=== PATIENT | male | born 1965 | race Caucasian/White ===

== ENCOUNTER 2023-06-09 23:12 | Emergency (ER) | payer OTHER, SELFPAY ==
--- NOTE | ~2023-06-09 | CT_ITS ---
EXAMINATION: CT HEAD WITHOUT CONTRAST CLINICAL INFORMATION: Fall COMPARISON: None. TECHNIQUE: Contiguous axial imaging was performed from the skull base to vertex without intravenous contrast. This CT examination was performed using dose optimization techniques as appropriate, variously including the following: * Automated exposure control * Adjustment of mA and/or kV according to patient size (this includes techniques or standardized protocols for targeted exams where dose is matched to indication/reason for exam; i.e. extremities or head) Use of iterative reconstruction technique DLP: 648 mGy-cm. FINDINGS: There is no evidence of acute intracranial hemorrhage or territorial infarction. No abnormal mass effect or midline shift is seen. Munoz to white matter differentiation is well preserved. No extra-axial fluid collections are identified. No hydrocephalus. No significant volume loss. There is no abnormal attenuation within the brain parenchyma. The osseous structures and soft tissues are normal. Completely opacified left maxillary sinus. Mild mucoperiosteal thickening throughout the remaining paranasal sinuses. The mastoid air cells are clear. CT/CT head/brain wo IV con IMPRESSION: No acute intracranial pathology. Paranasal sinus opacification.
[2023-06-09 23:17] VITALS: BP 146/94; PULSE 80; O2SAT 94
--- NOTE | 2023-06-09 23:27 | ECG_ITS ---
Test Reason : SUBSTANCE ABUSE Blood Pressure : / mmHG Vent. Rate : 076 BPM Atrial Rate : 076 BPM P-R Int : 160 ms QRS Dur : 094 ms QT Int : 384 ms P-R-T Axes : 059 -01 029 degrees QTc Int : 432 ms Normal sinus rhythm Normal ECG When compared with ECG of 20-DEC-2017 00:37, No significant change was found Referred By: Magno Chavez Electronically Signed By:KENNETH REESE
--- NOTE | 2023-06-09 23:27 | ED.OVERDOSE ---
HPI - Overdose General Chief Complaint: Overdose Stated Complaint: snorted unk. drank 30 bud lite per ems Time Seen by Provider: 06/09/23 23:24 Source: patient Mode of arrival: EMS Limitations: no limitations History of Present Illness HPI Narrative: Patient alcohoic drinking heavy today had 30 beers and snorted cocaine fell down prior to arrival woke up about a sternal rub was given 4 mg of nasal Narcan patient denies use of heroin no chest pain Related Data Allergies Allergy/AdvReac Type Severity Reaction Status Date / Time Penicillins [PENICILLINS] Allergy Unknown UNKNOWN Unverified 07/07/20 17:16 Review of Systems Review of Systems: Yes all other systems are reviewed and are negative Physical Exam Vital Signs: Vital Signs: Last Vital Signs Temp 98.2 F 06/09/23 23:31 Pulse 68 06/10/23 01:38 Resp 17 06/10/23 01:38 BP 120/68 06/10/23 01:38 Pulse Ox 95 06/10/23 01:38 O2 Del Method Room Air 06/10/23 01:38 BMI result Body Mass Index 23.5 Appearance: Alert. Oriented X3. No acute distress. ETOH+ Eyes: PERRLA, No Nystagmus ENT: Pharynx normal. Oral Mucosa moist Neck: Normal inspection. Neck supple. No midline tenderness CVS: Normal heart rate and rhythm. Pulses normal. Respiratory: No respiratory distress. Equal air entry bilateral, no wheezing/rales/rhonchi Abdomen: Soft and nontender. Bowel sounds are present, no mass palpable, no CVA tenderness Skin: Skin warm and dry. Normal skin color. Normal skin turgor. Extremities: No lower extremity edema. No calf tenderness Neuro: Oriented X 3. No motor deficit. No sensory deficit.No cerebellar signs , cranial nerves II-XII intact Medical Decision Making Medical Decision Making [facility] Narrative: Patient ETOH intoxication status post fall with history of cocaine use , CT scan of the negative will discharge patient home once sober Differential Diagnosis Differential Diagnoses: The differential diagnosis associated with the presentation includes Subdural hematoma/alcohol intoxication/polysubstance abuse Lab Data [facility] Lab Attestation statement: I reviewed the patient's lab results. 06/09/23 23:51 06/09/23 23:51 Labs: Lab Results 08/20/23 08/20/23 08/20/23 Range/Units 23:51 23:51 23:51 WBC 9.3 (4.8-10.8) X10*3/uL RBC 5.21 (4.60-5.80) X10*6/uL Hgb 14.9 (14.0-18.0) g/dl Hct 44.7 (42.0-52.0) % MCV 85.8 (80.0-98.0) fL MCH 28.6 (27.0-33.0) pg MCHC 33.3 (31.0-36.0) g/dl RDW 13.2 (11.0-16.0) % Plt Count 323 (160-400) X10*3/uL MPV 9.9 (9.4-12.4) fL Immature Gran % (Auto) 0.2 (0.0-0.4) % Neut % (Auto) 63.9 (45-73) % Lymph % (Auto) 28.6 (20-40) % [place] % (Auto) 6.0 (2-11) % Eos % (Auto) 0.5 (0-4) % Baso % (Auto) 0.8 (0-2) % Lymph # (Auto) 2.7 (1.2-4.9) X10*3/uL [place] # (Auto) 0.6 (0.1-1.2) X10*3/uL Eos # (Auto) 0.1 (0.0-0.4) X10*3/uL Baso # (Auto) 0.1 (0.0-0.2) X10*3/uL Abs Immat Gran (auto) 0.02 (0.00-0.03) X10*3/uL Absolute Neuts (auto) 5.9 (2.0-8.3) x10*3/uL Absolute Nucleated RBC 0.000 (0.0-0.012) X10*3/uL Nucleated RBC % (auto) 0.0 (0.0-0.2) /100WBC PT 12.3 (11.1-13.3) SEC INR 1.0 (0.9-1.1) Sodium 144 (135-145) mmol/L Potassium 3.8 (3.3-5.1) mmol/L Chloride 106 (96-108) mmol/L Carbon Dioxide 25 (22-29) mmol/L Anion Gap 17 (12-20) BUN 12 (9-16) mg/dL Creatinine 1.00 (0.5-1.4) mg/dL Estim Creat Clear Calc 78.8 Estimated GFR > 60 Random Glucose 82 (60-115) mg/dL Calcium 9.9 (8.4-10.2) mg/dL Total Bilirubin 1.5 H (0.0-1.0) mg/dL AST 24 (5-37) U/L ALT 15 (0-40) U/L Alkaline Phosphatase 61 (39-117) U/L Total Protein 8.0 (6.5-8.0) g/dL Albumin 4.6 (3.5-5.0) g/dL Urine Opiates Screen (Not Detect) Urine Fentanyl Screen (Not Detect) Ur Barbiturates Screen (Not Detect) Ur Phencyclidine Scrn (Not Detect) Ur Amphetamines Screen (Not Detect) U Benzodiazepines Scrn (Not Detect) Urine Cocaine Screen (Not Detect) U Marijuana (THC) Screen (Not Detect) Ethyl Alcohol mg/dL 06/09/23 06/09/23 Range/Units 23:51 23:51 WBC (4.8-10.8) X10*3/uL RBC (4.60-5.80) X10*6/uL Hgb (14.0-18.0) g/dl Hct (42.0-52.0) % MCV (80.0-98.0) fL MCH (27.0-33.0) pg MCHC (31.0-36.0) g/dl RDW (11.0-16.0) % Plt Count (160-400) X10*3/uL MPV (9.4-12.4) fL Immature Gran % (Auto) (0.0-0.4) % Neut % (Auto) (45-73) % Lymph % (Auto) (20-40) % [place] % (Auto) (2-11) % Eos % (Auto) (0-4) % Baso % (Auto) (0-2) % Lymph # (Auto) (1.2-4.9) X10*3/uL [place] # (Auto) (0.1-1.2) X10*3/uL Eos # (Auto) (0.0-0.4) X10*3/uL Baso # (Auto) (0.0-0.2) X10*3/uL Abs Immat Gran (auto) (0.00-0.03) X10*3/uL Absolute Neuts (auto) (2.0-8.3) x10*3/uL Absolute Nucleated RBC (0.0-0.012) X10*3/uL Nucleated RBC % (auto) (0.0-0.2) /100WBC PT (11.1-13.3) SEC INR (0.9-1.1) Sodium (135-145) mmol/L Potassium (3.3-5.1) mmol/L Chloride (96-108) mmol/L Carbon Dioxide (22-29) mmol/L Anion Gap (12-20) BUN (9-16) mg/dL Creatinine (0.5-1.4) mg/dL Estim Creat Clear Calc Estimated GFR Random Glucose (60-115) mg/dL Calcium (8.4-10.2) mg/dL Total Bilirubin (0.0-1.0) mg/dL AST (5-37) U/L ALT (0-40) U/L Alkaline Phosphatase (39-117) U/L Total Protein (6.5-8.0) g/dL Albumin (3.5-5.0) g/dL Urine Opiates Screen Not Detected (Not Detect) Urine Fentanyl Screen Not Detected (Not Detect) Ur Barbiturates Screen Not Detected (Not Detect) Ur Phencyclidine Scrn Not Detected (Not Detect) Ur Amphetamines Screen Not Detected (Not Detect) U Benzodiazepines Scrn Not Detected (Not Detect) Urine Cocaine Screen POSITIVE H (Not Detect) U Marijuana (THC) Screen Not Detected (Not Detect) Ethyl Alcohol 261 mg/dL Independent Interpretation I performed an independent interpretation of an: EKG Interpretation: Normal sinus rhythm heart rate 76 beats per minute normal interval normal axis no acute ST-T no acute ischemia Discharge Plan Discharge Clinical Impression: Cocaine intoxication, Alcohol abuse Patient Disposition: Still a Patient Instructions: Cocaine Abuse (ED), Abuse of Alcohol (ED) Additional Instructions: Stop using drugs follow up with detox
[2023-06-09 23:31] VITALS: BP 138/87; PULSE 74; RESP 12; TEMP 36.8; O2SAT 98; BMI 23.5
[2023-06-09 23:57] LABS: MANUAL DIFF FLAG NO
[2023-06-09 23:58] LABS: Basophils Absolute Auto 0.1 X10*3/uL (0.0-0.2); Basophils Percent Auto 0.8 % (0-2); Eosinophils Absolute Auto 0.1 X10*3/uL (0.0-0.4); Eosinophils Percent Auto 0.5 % (0-4); Hematocrit 44.7 % (42.0-52.0); Hemoglobin 14.9 g/dl (14.0-18.0); Imm Gran Abs Auto 0.02 X10*3/uL (0.00-0.03); Imm Gran Pct Auto 0.2 % (0.0-0.4); Lymphocytes Absolute Auto 2.7 X10*3/uL (1.2-4.9); Lymphocytes Percent Auto 28.6 % (20-40); Mean Corpuscular HGB Conc 33.3 g/dl (31.0-36.0); Mean Corpuscular Hemoglobin 28.6 pg (27.0-33.0); Mean Corpuscular Volume 85.8 fL (80.0-98.0); Mean Platelet Volume 9.9 fL (9.4-12.4); Monocytes Absolute Auto 0.6 X10*3/uL (0.1-1.2); Neutrophils Absolute Auto 5.9 x10*3/uL (2.0-8.3); Neutrophils Percent Auto 63.9 % (45-73); Platelet Count 323 X10*3/uL (160-400); Red Blood Count 5.21 X10*6/uL (4.60-5.80); Red Cell Distribution Width 13.2 % (11.0-16.0); White Blood Count 9.3 X10*3/uL (4.8-10.8)
[2023-06-10 00:05] VITALS: O2SAT 86
--- NOTE | 2023-06-10 00:05 | PC.NURSE ---
this rn assumed care of pt from ems @ 2331.[id number] at bedside to secure belongings in [facility]. pt placed on cardiac tech, dr de dios at bedside, ekg obtained, blood work and urine obtained.
[2023-06-10 00:11] LABS: Prothrombin Time 12.3 SEC (11.1-13.3)
[2023-06-10 00:19] LABS: Amphetamine Screen Urine Not Detected (Not Detect); Barbiturates, Urine Not Detected (Not Detect); Benzodiazepines Screen Urine Not Detected (Not Detect); Cannabinoid Screen Urine Not Detected (Not Detect); Cocaine Screen Urine POSITIVE (Not Detect); Ethanol 261 mg/dL; Opiate Screen Urine Not Detected (Not Detect); Phencyclidine Screen Urine Not Detected (Not Detect)
[2023-06-10 00:22] LABS: Alanine Aminotransferase 15 U/L (0-40); Albumin Level 4.6 g/dL (3.5-5.0); Alkaline Phosphatase 61 U/L (39-117); Anion Gap 17 (12-20); Aspartate Amino Transferase 24 U/L (5-37); Bilirubin Total 1.5 mg/dL (0.0-1.0); Blood Urea Nitrogen 12 mg/dL (9-16); Calcium 9.9 mg/dL (8.4-10.2); Carbon Dioxide 25 mmol/L (22-29); Chloride 106 mmol/L (96-108); Creatinine Clr Calc Pharmacy 78.8; Estimated Glomerular Filt Rate > 60; Glucose Random 82 mg/dL (60-115); Potassium 3.8 mmol/L (3.3-5.1); Sodium 144 mmol/L (135-145)
[2023-06-10 00:37] LABS: Fentanyl, urine Not Detected (Not Detect)
[2023-06-10 01:38] VITALS: BP 120/68; PULSE 68; RESP 17; O2SAT 95
[2023-06-10 04:40] VITALS: BP 106/60; PULSE 73; RESP 20; O2SAT 97
[2023-06-10 06:19] VITALS: BP 95/56; PULSE 89; RESP 16; TEMP 36.6; O2SAT 97
[2023-06-10] MEDS: Magnesium Hydrox/Alum Hydrox 30 ML ORAL.SUSP PO (06:20)
--- OUTSIDE RECORDS SUMMARY | 2023-06-10 06:21 | XMS_ITS | Continuity of Care Document ---
Author Name Unknown Organization [facility] Address [address] [place] [address]- Care Team Providers Care Bottle And Glass Inspector Name Role Phone Raiza KRISHNA, [place] Primary Care Physician [phone] Encounter [facility] Date(s): 04/05/21 - 05/05/21 [facility] [address], [place] [address] Allergies, Adverse Reactions, Alerts Substance Reaction Severity Status penicillins Active Immunizations Given and Recorded Vaccine Date Status Refusal Reason SARS-CoV-2 (COVID-19) mRNA BNT-162b2 vac 02/27/21 Given SARS-CoV-2 (COVID-19) mRNA BNT-162b2 vac 02/06/21 Given tetanus-diphtheria toxoids (Td) 11/23/20 Given influenza virus vaccine, inactivated 07/27/20 Give n influenza virus vaccine, inactivated 12/21/19 Give n influenza virus vaccine, inactivated 07/15/19 Give n influenza virus vaccine, inactivated 1 10/12/10 Gi jocy tetanus/diphtheria/pertussis, acel(Tdap) 2 10/12/10 Given 1Admin Note: VIS given 05/30/10, Algerian form 2Admin Note: VIS given, 08/2008, Algerian form Medications amLODIPine 2.5 mg oral tablet 2.5 mg, 1, tablet, By Mouth, Daily, ; STOP amlodipine 5 mg. use this dose instead., # 30 tablet, Refills 11, Tot. Refills 11, Maintenance, 11/22/20 16:52:00 EST, Route to Pharmacy Electronically, [facility]/pharmacy #[id number], label all scripts in SWAZI,... Start Date: 11/22/20 Stop Date: 11/17/21 Status: Ordered azelastine 0.05% ophthalmic solution 1 drops, Eyes, Both, 2 times a day, PRN for allergy symptoms, # 6 mL, 6 Refills, Maintenance, 01/13/21 14:54:00 EDT, [id number], Label in Algerian, 1 drops Eyes, Both 2 times a day,PRN:for allergy symptoms, 159, cm, 01/04/21 9:23:00 EDT, Height... Start Date: 01/13/21 Status: Ordered diclofenac 3% topical gel 1 application, Topically, 2 times a day, # 100 Gm, 0 Refills, Maintenance, 04/28/21 17:22:00 EDT, Gel, [id number], Partial fill upon patient request if the prescription is for a schedule II opioid drug., 1 application Topically 2 times a day,... Start Date: 04/28/21 Status: Ordered Flonase 50 mcg/inh nasal spray 1 sprays, Nares, Both, Daily, # 16 Gm, 1 Refills, Maintenance, 06/16/20 18:04:00 EDT, [place], [id number], 159, cm, 06/08/20 13:31:00 EDT, Height Start Date: 06/16/20 Status: Ordered multivitamin Multiple Vitamins oral capsule 1 capsule, By Mouth, Daily, # 90 capsule, 1 Refills, Maintenance, 02/06/21 14:59:00 EDT, Capsule, [id number], 1 capsule By Mouth Daily, 159, cm, 01/04/21 9:23:00 EDT, Height, 78, kg, 01/02/2116:06:00 EDT, Dry Weight Start Date: 02/06/21 Status: Ordered omeprazole 40 mg oral enteric coated capsule 1 capsule = 40 mg, By Mouth, 2 times a day, # 60 capsule, 2 Refills, Maintenance, 04/13/21 10:31:00EDT, EC Capsule, [id number], Partial fill upon patient request if the prescription is for aschedule II opioid drug., 159, cm, 01/04/21 9:23:00... Start Date: 04/13/21 Stop Date: 07/12/21 Status: Ordered prazosin 2 mg oral capsule via Psychaitry, Syl Riley, 0 Refills, Maintenance, 11/22/20 16:15:00 EST, Partial fill upon patient request if the prescription is for a schedule II opioid drug. Start Date: 11/22/20 Status: Ordered QUEtiapine 100 mg oral tablet 100 mg, 1, tablet, By Mouth, Daily in AM, via Psychaitry, Syl Riley, Refills 0, Maintenance, 11/22/20 16:15:00 EST, Partial fill upon patient request if the prescription is for a schedule II opioid drug. Start Date: 11/22/20 Status: Ordered QUEtiapine 300 mg oral tablet TAKE 1 TABLET BY MOUTH AT BEDTIME DIRECTED FOR PSYCHOSIS, SLEEP AND MOOD STABILIZATION Start Date: 12/16/20 Status: Ordered tiZANidine 2 mg oral capsule 1 capsule = 2 mg, By Mouth, 3 times a day, PRN as needed for muscle spasm, # 9 capsule, 0 Refills, Maintenance, 04/28/21 17:18:00 EDT, Capsule, [facility]/pharmacy #[id number], libyan labeling, 159, cm, 04/28/2115:46:00 EDT, Height, 78, kg, 01/01/21 16:06:00 EDT... Start Date: 04/28/21 Stop Date: 05/01/21 Status: Ordered Tums 500 mg oral tablet, chewable 500 mg, 1, tablet, Chew, 2 times a day, # 60 tablet, Refills 5, Tot. Refills 5, Maintenance, 12/16/20 14:32:00 EST, Route to Pharmacy Electronically, [facility]/pharmacy #[id number], 159, cm, 12/16/20 13:47:00 EST, Height, 74.1, kg, 10/20/20 16:18:00 EST, Dry Weight Start Date: 12/16/20 Status: Ordered Problem List Condition Effective Dates Status Health Status Inform ant Hematuria(Confirmed) 1 Active Chronic back pain(Confirmed) Active Dyslipidemia(Confirmed) Active h/o allergic rhinitis(Confirmed) Active Illiteracy(Confirmed) Active Dyspepsia(Confirmed) Active Disc displacement(Confirmed) Active Onychomycosis(Confirmed) Active BHN/[facility]ECARE/CC-Serena Purcell-[phone]/[facility], Active Care Coordination(Confirmed) Active Muscle spasm(Confirmed) Active Tubular adenoma of colon - d ue 2021(Confirmed) 2 11/2015 Active 1, gross 2-2014, had cystoscopy 2014 Social History Social History Type Response Smoking Status Never smoker entered on: 08/23/16 Sex
--- OUTSIDE RECORDS SUMMARY | 2023-06-10 06:21 | XMS_ITS | Continuity of Care Document ---
Author Name Unknown Organization [facility] Address [address] [place] [address]- Care Team Providers Care Decker Operator Name Role Phone Raiza KRISHNA, [place] Primary Care Physician Encounter [facility] Date(s): 04/02/22 - 05/02/22 [facility] [address], [place] [address] Attending Physician: Viky Garcia Admitting Physician: AdmtrViky Referring Physician: Admtr, Ar8 Allergies, Adverse Reactions, Alerts Substance Reaction Severity Status penicillins Superficial gravel r enid Itching Active Immunizations Given and Recorded Vaccine Date Status Refusal Reason SARS-CoV-2 (COVID-19) mRNA BNT-162b2 vac 09/13/21 Recorded SARS-CoV-2 (COVID-19) mRNA BNT-162b2 vac 02/27/21 Given SARS-CoV-2 (COVID-19) mRNA BNT-162b2 vac 02/06/21 Given influenza virus vaccine, inactivated 07/20/21 Inocente rded influenza virus vaccine, inactivated 07/27/20 Give n influenza virus vaccine, inactivated 12/21/19 Give n influenza virus vaccine, inactivated 07/15/19 Give n influenza virus vaccine, inactivated 08/17/18 Inocente rded influenza virus vaccine, inactivated 11/12/17 Inocente rded influenza virus vaccine, inactivated 1 10/12/10 Gi jocy tetanus-diphtheria toxoids (Td) 11/23/20 Given tetanus/diphtheria/pertussis, acel(Tdap) 2 10/12/10 Given 1Admin Note: VIS given 05/30/10, Croatian form 2Admin Note: VIS given, 08/2008, Croatian form Medications amLODIPine 2.5 mg oral tablet 2.5 mg, 1, tablet, By Mouth, Daily, ; STOP amlodipine 5 mg. use this dose instead., # 30 tablet, Refills 5, Tot. Refills 5, Maintenance, 11/17/21 16:52:00 EST, Route to Pharmacy Electronically,[facility]/pharmacy #[id number], label all scripts in ICELANDIC, 1... Start Date: 11/17/21 Stop Date: 05/16/22 Status: Ordered azelastine 0.05% ophthalmic solution 1 drops, Eyes, Both, 2 times a day, PRN for allergy symptoms, For eye allergies, # 6 mL, 6 Refills,Maintenance, 02/28/22 16:27:00 EDT, [facility]/pharmacy #[id number], Label in Croatian, 1 drops Eyes, Both 2 times a day,PRN:for allergy symptoms,Instr:For eye aller... Start Date: 02/28/22 Status: Ordered azelastine 137 mcg/inh (0.1%) nasal spray 0 Refills, Maintenance, 12/07/21 11:16:00 EST, via Dr Glover, office assistant receptionist Start Date: 12/07/21 Status: Ordered baclofen 10 mg oral tablet See Instructions, JUAN RAMON JOAN TABLETA POR VIA ORAL KARLA VECES AL MONICA, # 63 tablet, Refills 0, Instructions Replace Required Details, Route to Pharmacy Electronically, [facility]ORE [id number], 157.5, cm, 04/10/22 10:29:00 EDT, Height, 75, kg, 03/25/22 2:00:00 EDT... Start Date: 04/16/22 Status: Ordered buPROPion 150 mg/24 hours (XL) oral tablet, extended release via psychiatry, 0 Refills, Maintenance, 12/07/21 11:13:00 EST, Partial fill upon patient request ifthe prescription is for a schedule II opioid drug. Start Date: 12/07/21 Status: Ordered ciclopirox 8% topical solution 1 application, Topically, Daily, Apply topically to affected toenails daily until infection is cleared, # 6.6 mL, 1 Refills, Maintenance, 08/28/21 14:44:00 EST, Solution, [facility]/pharmacy #[id number], Partial fill upon patient request if the prescription is for... Start Date: 08/28/21 Status: Ordered Crutches See Instructions, # 1 kit, Maintenance, use for 2 weeks dx: leg injury, 03/27/22 10:10:00 EDT, Supply, 157.5, cm, 03/27/22 9:45:00 EDT, Height, 75, kg, 03/25/22 2:00:00 EDT, Dry Weight Start Date: 03/27/22 Status: Ordered [facility] Maintenance, 12/07/21 11:16:00 EST, via Dr Glover, office assistant receptionist, Supply Start Date: 12/07/21 Status: Ordered cyclobenzaprine 5 mg oral tablet 0 Refills, Maintenance, 09/28/21 13:55:00 EST, Partial fill upon patient request if the prescription is for a schedule II opioid drug. Start Date: 09/28/21 Status: Ordered diclofenac 3% topical gel 1 application, Topically, 2 times a day, # 100 Gm, 0 Refills, Maintenance, 04/28/21 17:22:00 EDT, Gel, [facility]/pharmacy #[id number], Partial fill upon patient request if the prescription is for a schedule II opioid drug., 1 application Topically 2 times a day,... Start Date: 04/28/21 Status: Ordered Flonase 50 mcg/inh nasal spray 1 sprays, Nares, Both, Daily, # 16 Gm, 1 Refills, Maintenance, 11/30/21 10:55:00 EST, [place], [facility]/pharmacy #[id number], 1 sprays Nares, Both Daily, 159, cm, 11/30/21 9:50:00 EST, Height, 78, kg, 01/01/21 16:06:00 EDT, Dry Weight Start Date: 11/30/21 Status: Ordered Knee Support See Instructions, # 1 each, Maintenance, Dx: Left knee strain Dispense: Hinged Knee Brace, 03/29/2212:06:00 EDT, Supply Start Date: 03/29/22 Status: Ordered loratadine 10 mg oral tablet 10 mg, 1, tablet, By Mouth, Daily, # 30 tablet, Refills 5, Tot. Refills 5, Maintenance, 12/18/21 10:54:00 EST, Route to Pharmacy Electronically, [facility]/pharmacy #[id number], Partial fill upon patient request if the prescription is for a schedule II opioid drug... Start Date: 12/18/21 Status: Ordered LUBRICNT EYE JESSICA 0.4-0.3% Maintenance, 12/07/21 11:16:00 EST, via Dr Glover, office assistant receptionist, Supply Start Date: 12/07/21 Status: Ordered minoxidil 2% topical solution 1 mL = 0.02 Gm, Topically, 2 times a day, # 60 mL, 2 Refills, Maintenance, 02/28/22 16:27:00 EDT, Solution, [facility]/pharmacy #[id number], Partial fill upon patient request if the prescription is for a scheduleII opioid drug., 1 mL Topically 2 times a day, 159,... Start Date: 02/28/22 Status: Ordered multivitamin Multiple Vitamins oral capsule 1 capsule, By Mouth, Daily, # 90 capsule, 1 Refills, Maintenance, 03/22/22 15:18:00 EDT, Capsule, [id number], 1 capsule By Mouth Daily, 159, cm, 03/22/22 10:39:00 EDT, Height, 78, kg, 01/01/21 16:06:00 EDT, Dry Weight Start Date: 03/22/22 Status: Ordered NuLYTELY with Flavor Packs oral powder for reconstitution 240 mL, By Mouth, Every 10 minutes, # 1 each, 0 Refills, Maintenance, 09/21/21 9:33:00 EST, REC Powder, [facility], Partial fill upon patient request if the prescription is for a schedule II opioid drug., 240 mL By Mouth Every 10 minut... Start Date: 09/21/21 Status: Ordered [place]-3 1000 mg oral capsule via psychiatry, 0 Refills, Maintenance, 12/07/21 11:13:00 EST, Partial fill upon patient request ifthe prescription is for a schedule II opioid drug. Start Date: 12/07/21 Status: Ordered omeprazole 40 mg oral enteric coated capsule 1 capsule = 40 mg, By Mouth, 2 times a day, # 60 capsule, 2 Refills, Maintenance, 04/13/21 10:31:00EDT, EC Capsule, [id number], Partial fill upon patient request if the prescription is for aschedule II opioid drug., 159, cm, 01/04/21 9:23:00... Start Date: 04/13/21 Stop Date: 07/12/21 Status: Ordered Lynette-Colace 50 mg-8.6 mg oral tablet 2 tablet, By Mouth, Daily at bedtime, PRN Constipation, For constipation, # 60 tablet, 0 Refills, Maintenance, 01/02/22 20:52:00 EDT, Tablet, [facility]/pharmacy #[id number], Partial fill upon patient request if the prescription is for a schedule II opioid drug. L... Start Date: 01/02/22 Status: Ordered Physical Therapy Physical Therapy, See Instructions, # 1 each, Refills 0, Tot. Refills 0, Maintenance, Physical therapy for R leg 2 times a week for 4 weeks ICD M25.561, 04/10/22 10:46:00 EDT, Supply Start Date: 04/10/22 Status: Ordered QUEtiapine 50 mg oral tablet via psychiatry, 0 Refills, Maintenance, 12/07/21 11:13:00 EST, Partial fill upon patient request ifthe prescription is for a schedule II opioid drug. Start Date: 12/07/21 Status: Ordered Simply Saline 0.9% spray 1 sprays, Nares, Both, Every 30 minutes, PRN for dry nasal passages, # 45 mL, 4 Refills, Maintenance, 02/28/22 16:09:00 EDT, [place], [facility]/pharmacy #[id number], Partial fill upon patient request if the prescription is for a schedule II opioid drug., 1 sprays N... Start Date: 02/28/22 Status: Ordered tamsulosin 0.4 mg oral capsule 0.4 mg, 1, capsule, By Mouth, Daily, at night (print label in new zealander), # 30 capsule, Refills 1, Tot. Refills 1, Maintenance, 09/28/21 14:03:00 EST, Route to Pharmacy Electronically, [facility], Partial fill upon patient request if the... Start Date: 09/28/21 Status: Ordered Tears Naturale Forte preserved ophthalmic solution 1 drops, Eyes, Both, 2 times a day, PRN for dry eyes, # 30 mL, 0 Refills, Maintenance, 08/28/21 14:52:00 EST, Solution, [facility]/pharmacy #[id number], Partial fill upon patient request if the prescription is for a schedule II opioid drug., 1 drops Eyes, Both 2 t... Start Date: 08/28/21 Status: Ordered tiZANidine 2 mg oral capsule 1 capsule = 2 mg, By Mouth, 3 times a day, PRN as needed for muscle spasm, # 9 capsule, 0 Refills, Maintenance, 04/28/21 17:18:00 EDT, Capsule, [facility]/pharmacy #[id number], new zealander labeling, 159, cm, 04/28/2115:46:00 EDT, Height, 78, kg, 01/01/21 16:06:00 EDT... Start Date: 04/28/21 Stop Date: 05/01/21 Status: Ordered Tums 500 mg oral tablet, chewable 500 mg, 1, tablet, Chew, 2 times a day, # 60 tablet, Refills 5, Tot. Refills 5, Maintenance, 12/16/20 14:32:00 EST, Route to Pharmacy Electronically, [facility]/pharmacy #[id number], 159, cm, 12/16/20 13:47:00 EST, Height, 74.1, kg, 10/20/20 16:18:00 EST, Dry Weight Start Date: 12/16/20 Status: Ordered Walker See Instructions, # 1 each, Maintenance, Use walker as needed for ambulation Dx R26.81, 03/29/22 13:14:00 EDT, Supply Start Date: 03/29/22 Status: Ordered Problem List Condition Effective Dates Status Health Status Inform ant Hematuria(Confirmed) 1 Active Chronic back pain(Confirmed) Active Dyslipidemia(Confirmed) Active Allergic rhinitis(Confirmed) Active Illiteracy(Confirmed) Active Dyspepsia(Confirmed) Active Disc displacement(Confirmed) Active Obese class I(Confirmed) Active Onychomycosis(Confirmed) Active *N/[facility]/CC-Patricia [phone]/[facility], Active Care Coordination(Confirmed) Active Nasal septum perforation, h/ o cocaine(Confirmed) Active Muscle spasm(Confirmed) Active Tubular adenoma of colon - d ue 2021(Confirmed) 2 11/2015 Active 1 gross 2-2014, had cystoscopy 2014 Social History Social History Type Response Smoking Status Never smoker entered on: 08/23/16 Sex
--- OUTSIDE RECORDS SUMMARY | 2023-06-10 06:21 | XMS_ITS | Continuity of Care Document ---
Author Name Unknown Organization [facility] ter Address [address] [place] [id number]- Care Team Providers Care Sociology Research Assistant Name Role Phone Raiza KRISHNA, [place] Primary Care Physician [phone] Encounter [facility] Date(s): 03/25/22 - 03/25/[address] [address]- Discharge Disposition: A-D/C Home Attending Physician: Sylvain KRISHNA, Alexi Gandara Admitting Physician: Sylvain KRISHNA, Alexi Gandara Referring Physician: Not on Staff, Referring MD Allergies, Adverse Reactions, Alerts Substance Reaction Severity [...] 10/12/10 Given 1Admin Note: VIS given 05/30/10, Guinean form 2Admin Note: VIS given, 08/2008, Guinean form Medications amLODIPine 2.5 mg oral tablet 2.5 mg, 1, tablet, By Mouth, Daily, 2-1; STOP amlodipine 5 mg. use this dose instead., # 30 tablet, Refills 5, Tot. Refills 5, Maintenance, 11/17/21 16:52:00 EST, Route to Pharmacy Electronically,[facility]/pharmacy #[id number], label all scripts in [place], 1... Start Date: 11/17/21 Stop Date: 05/16/22 Status: Ordered azelastine 0.05% ophthalmic solution 1 drops, Eyes, Both, 2 times a day, PRN for allergy symptoms, For eye allergies, # 6 mL, 6 Refills,Maintenance, 02/28/22 16:27:00 EDT, [facility]/pharmacy #[id number], Label in Guinean, 1 drops Eyes, Both 2 times a day,PRN:for allergy symptoms,Instr:For eye aller... Start Date: 02/28/22 Status: Ordered azelastine 137 mcg/inh (0.1%) nasal spray 0 Refills, Maintenance, 12/07/21 11:16:00 EST, via Dr Glover, e commerce manager Start Date: 12/07/21 Status: Ordered buPROPion 150 mg/24 hours (XL) [...] 1 Refills, Maintenance, 08/28/21 14:44:00 EST, Solution, [facility]/pharmacy #[id number], Partial fill upon patient request if the prescription is for... Start Date: 08/28/21 Status: Ordered [facility] LUBRICANT EYE DROPS Maintenance, 12/07/21 11:16:00 EST, via Dr Glover, e commerce manager, Supply Start Date: 12/07/21 Status: Ordered cyclobenzaprine [...] Gm, 1 Refills, Maintenance, 11/30/21 10:55:00 EST, [place], [id number], 1 sprays Nares, Both Daily, 159, cm, 11/30/21 9:50:00 EST, Height, 78, kg, 01/01/21 16:06:00 EDT, Dry Weight Start Date: 11/30/21 Status: Ordered loratadine 10 mg oral tablet 10 mg, 1, tablet, By Mouth, Daily, # 30 tablet, Refills 5, Tot. Refills 5, Maintenance, 12/18/21 10:54:00 EST, Route to Pharmacy Electronically, [facility]/pharmacy #[id number], Partial fill upon patient request if the prescription is for a schedule II opioid drug... Start Date: 12/18/21 Status: Ordered LUBRICNT EYE JESSICA 0.4-0.3% Maintenance, 12/07/21 11:16:00 EST, via Dr Glover, e commerce manager, Supply Start Date: 12/07/21 Status: Ordered minoxidil 2% topical solution 1 mL = 0.02 Gm, Topically, 2 times a day, # 60 mL, 2 Refills, Maintenance, 02/28/22 16:27:00 EDT, Solution, [facility]/pharmacy #[id number], Partial fill upon patient request [...] Refills, Maintenance, 09/21/21 9:33:00 EST, [facility]der[facility] fill upon patient request if the prescription is for a schedule II opioid drug., 240 mL By Mouth Every 10 minut... Start Date: 09/21/21 Status: Ordered [place]-3 1000 mg oral capsule via psychiatry, 0 Refills, Maintenance, 12/07/21 11:13:00 EST, Partial fill upon patient request ifthe prescription is for a schedule II opioid drug. Start Date: 12/07/21 Status: Ordered omeprazole 40 mg oral enteric coated capsule 1 capsule = 40 mg, By Mouth, 2 times a day, # 60 capsule, 2 Refills, Maintenance, 04/13/21 10:31:00EDT, EC Capsule, [facility]/pharmacy #[id number], Partial fill upon patient request if the prescription is for aschedule II opioid drug., 159, cm, 01/04/21 9:23:00... Start Date: 04/13/21 Stop Date: 07/12/21 Status: Ordered Lynette-Colace 50 mg-8.6 mg oral tablet 2 tablet, By Mouth, Daily at bedtime, PRN Constipation, For constipation, # 60 tablet, 0 Refills, Maintenance, 01/02/22 20:52:00 EDT, Tablet, [facility]/pharmacy #[id number], Partial fill upon patient request if the prescription is for a schedule II opioid drug. L... Start Date: 01/02/22 Status: Ordered QUEtiapine 50 mg oral tablet via psychiatry, 0 Refills, Maintenance, 12/07/21 11:13:00 EST, Partial fill upon patient request ifthe prescription is for a schedule II opioid drug. Start Date: 12/07/21 Status: Ordered Simply Saline 0.9% spray 1 sprays, Nares, Both, Every 30 minutes, PRN for dry nasal passages, # 45 mL, 4 Refills, Maintenance, 02/28/22 16:09:00 EDT, [place], [facility]/pharmacy #[id number], Partial fill upon patient request if the prescription is for a schedule II opioid drug., 1 sprays N... Start Date: 02/28/22 Status: Ordered tamsulosin 0.4 mg oral capsule 0.4 mg, 1, capsule, By Mouth, Daily, at night (print label in danish), # 30 capsule, Refills 1, Tot. Refills 1, Maintenance, 09/28/21 14:03:00 EST, Route to Pharmacy Electronically, [facility], Partial fill upon patient request if the... Start Date: 09/28/21 Status: Ordered Tears Naturale Forte preserved ophthalmic solution 1 drops, Eyes, Both, 2 times a day, PRN for dry eyes, # 30 mL, 0 Refills, Maintenance, 08/28/21 14:52:00 EST, Solution, [facility]/pharmacy #[id number], Partial fill upon patient request if the prescription is for a schedule II opioid drug., 1 drops Eyes, Both 2 t... Start Date: 08/28/21 Status: Ordered tiZANidine 2 mg oral capsule 1 capsule = 2 mg, By Mouth, 3 times a day, PRN as needed for muscle spasm, # 9 capsule, 0 Refills, Maintenance, 04/28/21 17:18:00 EDT, Capsule, [facility]/pharmacy #[id number], danish labeling, 159, cm, 04/28/2115:46:00 EDT, Height, 78, kg, 01/01/21 16:06:00 EDT... Start Date: 04/28/21 Stop Date: 05/01/21 Status: Ordered Tums 500 mg oral tablet, chewable 500 mg, 1, tablet, Chew, 2 times a day, # 60 tablet, Refills 5, Tot. Refills 5, Maintenance, 12/16/20 14:32:00 EST, Route to Pharmacy Electronically, [facility]/pharmacy #[id number], 159, cm, 12/16/20 13:47:00 EST, Height, 74.1, kg, 10/20/20 16:18:00 EST, Dry Weight Start Date: 12/16/20 Status: Ordered Walker See Instructions, # 1 film, Maintenance, Use walker as needed, 03/25/22 12:11:00 EDT, Supply Start Date: 03/25/22 Status: Ordered Problem List Condition Effective Dates Status Health Status Inform ant Hematuria(Confirmed) 1 Active Chronic back pain(Confirmed) Active Dyslipidemia(Confirmed) Active Allergic rhinitis(Confirmed) Active Illiteracy(Confirmed) Active Dyspepsia(Confirmed) Active Disc displacement(Confirmed) Active Obese class I(Confirmed) Active Onychomycosis(Confirmed) Active *N/[facility]/CC-Patricia [phone]/[facility], Active Care Coordination(Confirmed) Active Nasal septum perforation, h/ o cocaine(Confirmed) Active Muscle spasm(Confirmed) Active Tubular adenoma of colon - d ue 2021(Confirmed) 2 11/2015 Active 1, gross 2-2014, had cystoscopy 2014 removed 2015 Results Radiology Reports * Exam Date Time Procedure Performing Provider Status 03/25/22 9:06 AM XR Hip w/Pelvis 2-3 View Right SebastiánKaren gillbeth; Andrea (Verified) Notes: (XR Hip w/Pelvis 2-3 View Right) Reason For Exam: Pain RESULT: XR Hip w/Pelvis 2-3 View Right XR Hip w/Pelvis 2-3 View Right Hx of Present Illness: leg pain; Reason: Pain; Clinical Question(s): Fracture COMPARISON: 03/25/2022 CT abdomen pelvis. FINDINGS: There is no acute pelvic bone or hip fracture. No dislocation. Normal hips and sacroiliac joints. Normal soft tissues. Opacified urinary bladder, from IV contrast given during CT. IMPRESSION: No acute RIGHT hip fracture. WSN: [id number] Ordering Physician: Suzette Deras Dictated By: Serena Obrien MD Dictated Date/Time: 03/25/22 9:17 am Reviewed By: Serena Obrien MD Signed By: Serena Obrien MD Signed Date/Time: 03/25/22 9:17 am Transcribed By: JEN Transcribed Date/Time: 03/25/22 9:14 am * Exam Date Time Procedure Performing Provider Status 03/25/22 4:03 AM Knee 1 or 2 Views Right Fatou Vallecillo cox monett (Verified) Notes: (Knee 1 or 2 Views Right) Reason For Exam: with Pain;Trauma RESULT: Knee 1 or 2 Views Right Knee 1 or 2 Views Right, 2 views Hx of Present Illness: leg pain; Reason: Trauma; with Pain; Clinical Question(s): Fracture; SpecialInstructions: This is a protocol film and radiologist should call any findings to the Charge Nurse COMPARISON: None. FINDINGS: There is no evidence of acute or healing fracture, dislocation or bone lesion. No arthritic changes. No osteochondral defects or intra-articular loose bodies. Moderate suprapatellar knee joint effusion. IMPRESSION: Joint effusion. No acute fracture or dislocation. WSN: [id number] Ordering Physician: Michael Hirsch Dictated By: Kev Jose MD Dictated Date/Time: 03/25/22 8:56 am Reviewed By: Kev Jose MD Signed By: Kev Jose MD Signed Date/Time: 03/25/22 8:56 am Transcribed By: JEN Transcribed Date/Time: 03/25/22 8:55 am Vital Signs Most recent to oldest [Reference Range]: 1 2 Height 157.5 cm (03/25/22 2:00 AM) 158 cm (03/25/22 2:00 AM) Weight 75 kg (03/25/22 2:00 AM) Oxygen Saturation [94-100 %] 100 % (03/25/22 6:15 AM) 100 % (03/25/22 2:00 AM) Pulse Rate [55-90 bpm] 66 bpm (03/25/22 6:15 AM) 73 bpm (03/25/22 2:00 AM) Blood Pressure [90-138/55-84 mm Hg] 129/ 76mm Hg (03/25/22 6:15 AM) 179/94mm Hg *H* (03/25/22 2:00 AM) Respiratory Rate [16-30 br/min] 18 br/mi n (03/25/22 2:00 AM) Temperature [96.8-100.4 DegF] 98.1 DegF (03/25/22 6:15 AM) 98.1 DegF (03/25/22 2:00 AM) Mode of Delivery (Oxygen) Room air (03/25/22 2:00 AM) Blood pressure sites Arm, right (03/25/22 6:15 AM) Arm, right (03/25/22 2:00 AM) Temperature Route Oral (03/25/22 6:15 AM) Oral (03/25/22 2:00 AM) Dry Weight 75 kg (03/25/22 2:00 AM) Social History Social History Type Response Smoking Status Never smoker entered on: 08/23/16 Sex
--- OUTSIDE RECORDS SUMMARY | 2023-06-10 06:21 | XMS_ITS | Continuity of Care Document ---
Author Name Unknown Organization [facility] Address [address] [place] [address]- Care Team Providers Care Svp [employer] Name Role Phone Trenton Eastman MD Primary Care Physician [phone] Encounter [facility] Date(s): 07/18/22 - 08/17/22 [facility] [address] [place] [id number] Allergies, Adverse Reactions, Alerts Substance Reaction Severity Status penicillins Superficial gravel r enid Itching Active Immunizations Given and Recorded Vaccine Date Status Refusal Reason SARS-CoV-2 mRNA ([id number]) vax 06/13/22 Recorded SARS-CoV-2 (COVID-19) mRNA BNT-162b2 vac 09/13/21 Recorded [...] 10/12/10 Given 1Admin Note: VIS given 05/30/10, [place] Islander form 2Admin Note: VIS given, 08/2008, [place]er form Medications amLODIPine 2.5 mg oral tablet 1 tablet, By Mouth, Daily, USE THIS DOSE INSTEAD., # 90 tablet, 5 Refills, [id number], 157.5, cm, 04/10/22 10:29:00 EDT, Height, 75, kg, 03/25/22 2:00:00 EDT, Dry Weight Start Date: 05/04/22 Status: Ordered azelastine 0.05% ophthalmic solution 1 drops, Eyes, Both, 2 times a day, PRN for allergy symptoms, For eye allergies, # 6 mL, 6 Refills,Maintenance, 02/28/22 16:27:00 EDT, [id number], Label in [place] Islander, 1 drops Eyes, Both 2 times a day,PRN:for allergy symptoms,Instr:For eye aller... Start Date: 02/28/22 Status: Ordered azelastine 137 mcg/inh (0.1%) nasal spray 0 Refills, Maintenance, 12/07/21 11:16:00 EST, via Dr Glover, flash welder Start Date: 12/07/21 Status: Ordered baclofen 10 mg oral tablet See Instructions, JUAN RAMON JOAN TABLETA POR VIA ORAL KARLA BERRY AL MONICA, # 63 tablet, Refills 0, Instructions Replace Required Details, Route to Pharmacy Electronically, [id number], 157.5, cm, 04/10/22 10:29:00 EDT, Height, 75, [...] 1 Refills, Maintenance, 08/28/21 14:44:00 EST, Solution, [facility]/pharmacy #[id number], Partial fill upon patient request if the prescription is for... Start Date: 08/28/21 Status: Ordered ciclopirox topical 0.77% suspension 1 application, Topically, 2 times a day, Print instructions in andorran, # 60 mL, 1 Refills, Maintenance, 07/11/22 11:00:00 EDT, Suspension, [facility]/pharmacy #[id number], Partial fill upon patient request if the prescription is for a schedule II opioid drug., 1... Start Date: 07/11/22 Status: Ordered clotrimazole 1% topical cream 1 application, Topically, 2 times a day, Print instructions in andorran Apply to groin area, face, and also in between digits on both feet, # 100 Gm, 0 Refills, Maintenance, 07/11/22 11:00:00 EDT, Cream, [facility]/pharmacy #[id number], Partial fill upon patient r... Start Date: 07/11/22 Status: Ordered [facility] LUBRICANT EYE DROPS Maintenance, 12/07/21 11:16:00 EST, via Dr Glover, flash welder, Supply Start Date: 12/07/21 Status: Ordered cyclobenzaprine 5 mg oral tablet 0 Refills, Maintenance, 09/28/21 13:55:00 EST, Partial fill upon patient request if the prescription is for a schedule II opioid drug. Start Date: 09/28/21 Status: Ordered diclofenac 3% topical gel 1 application, Topically, 2 times a day, # 100 Gm, 0 Refills, Maintenance, 04/28/21 17:22:00 EDT, Gel, [facility]/pharmacy #[id number], Partial fill upon patient request if the prescription is for a schedule II opioid drug., 1 application Topically 2 times a day,... Start Date: 04/28/21 Status: Ordered famotidine 40 mg oral tablet 1 tablet = 40 mg, By Mouth, 2 times a day, take 2x/day for 2 weeks then decrease to daily, # 60 tablet, 2 Refills, Maintenance, 06/24/22 12:04:00 EDT, Tablet, [facility]/pharmacy #[id number], Partial fill upon patient request if the prescription is for a schedule... Start Date: 06/24/22 Stop Date: 09/22/22 Status: Ordered Flonase 50 mcg/inh nasal spray 1 sprays, Nares, Both, Daily, # 16 Gm, 1 Refills, Maintenance, 11/30/21 10:55:00 EST, [place], [facility]/pharmacy #[id number], 1 sprays Nares, Both Daily, 159, cm, 11/30/21 9:50:00 EST, Height, 78, kg, 01/01/21 16:06:00 EDT, Dry Weight Start Date: 11/30/21 Status: Ordered loratadine 10 mg oral tablet 10 mg, 1, tablet, By Mouth, Daily, # 30 tablet, Refills 5, Tot. Refills 5, Maintenance, 12/18/21 10:54:00 EST, [id number] Partial fill upon patient request if the prescription is for a schedule II opioid drug... Start Date: 12/18/21 Status: Ordered LUBRICNT EYE JESSICA 0.4-0.3% Maintenance, 12/07/21 11:16:00 EST, via Dr Glover, flash welder, Supply Start Date: 12/07/21 Status: Ordered minoxidil 2% topical solution 1 mL = 0.02 Gm, Topically, 2 times a day, # 60 mL, 2 Refills, Maintenance, 02/28/22 16:27:00 EDT, [id number] Partial fill upon patient request if the prescription is for a scheduleII opioid drug., 1 mL Topically 2 times a day, 159,... Start Date: 02/28/22 Status: Ordered multivitamin Multiple Vitamins oral capsule 1 capsule, By Mouth, Daily, # 90 capsule, 1 Refills, Maintenance, 03/22/22 15:18:00 EDT, Capsule, [facility]/pharmacy #[id number], 1 capsule By Mouth Daily, 159, cm, 03/22/22 10:39:00 EDT, Height, 78, kg, 01/01/21 16:06:00 EDT, Dry Weight Start Date: 03/22/22 Status: Ordered NuLYTELY with Flavor Packs oral powder for reconstitution 240 mL, By Mouth, Every 10 minutes, # 1 each, 0 Refills, Maintenance, 09/21/21 9:33:00 EST, REC Powder, [facility], Partial fill upon patient request if the prescription is for a schedule II opioid drug., 240 mL By Mouth Every 10 minut... Start Date: 09/21/21 Status: Ordered NuLYTELY with Flavor Packs oral powder for reconstitution See Instructions, per GI office, # 4,000 mL, 0 Refills, Maintenance, 06/11/22 9:43:00 EDT, [id number], Partial fill upon patient request if the prescription is for a schedule II opioid drug.,per GI office, 157.5, cm, 04/10/22 10:29:00 EDT, He... Start Date: 06/11/22 Status: Ordered [place]-3 1000 mg oral capsule via psychiatry, 0 Refills, Maintenance, 12/07/21 11:13:00 EST, Partial fill upon patient request ifthe prescription is for a schedule II opioid drug. Start Date: 12/07/21 Status: Ordered omeprazole 40 mg oral enteric coated capsule 1 capsule = 40 mg, By Mouth, 2 times a day, # 60 capsule, 2 Refills, Maintenance, 06/11/22 8:55:00 EDT, EC Capsule, [facility]/pharmacy #[id number], Partial fill upon patient request if the prescription is for a schedule II opioid drug., 157.5, cm, 04/10/22 10:29:... Start Date: 06/11/22 Stop Date: 09/09/22 Status: Ordered Lynette-Colace 50 mg-8.6 mg oral tablet 2 tablet, By Mouth, Daily at bedtime, PRN Constipation, For constipation, # 60 tablet, 0 Refills, Maintenance, 01/02/22 20:52:00 EDT, Tablet, [facility]/pharmacy #[id number], Partial fill upon patient request [...] mL, 4 Refills, Maintenance, 02/28/22 16:09:00 EDT, [place], [id number], Partial fill upon patient request if the prescription is for a schedule II opioid drug., 1 sprays N... Start Date: 02/28/22 Status: Ordered tamsulosin 0.4 mg oral capsule 0.4 mg, 1, capsule, By Mouth, Daily, at night (print label in andorran), # 30 capsule, Refills 1, Tot. Refills 1, Maintenance, 09/28/21 14:03:00 EST, Route to Pharmacy Electronically, [facility], Partial fill upon patient request if the... Start Date: 09/28/21 Status: Ordered Tears Naturale Forte preserved ophthalmic solution 1 drops, Eyes, Both, 2 times a day, PRN for dry eyes, # 30 mL, 0 Refills, Maintenance, 08/28/21 14:52:00 EST, Solution, [facility]/pharmacy #[id number], Partial fill upon patient request if the prescription is for a schedule II opioid drug., 1 drops Eyes, Both 2 t... Start Date: 08/28/21 Status: Ordered tiZANidine 2 mg oral capsule 1 capsule = 2 mg, By Mouth, 3 times a day, PRN as needed for muscle spasm, # 9 capsule, 0 Refills, Maintenance, 04/28/21 17:18:00 EDT, Capsule, [facility]/pharmacy #[id number], andorran labeling, 159, cm, 04/28/2115:46:00 EDT, Height, 78, kg, 01/01/21 16:06:00 EDT... Start Date: 04/28/21 Stop Date: 05/01/21 Status: Ordered Tums 500 mg oral tablet, chewable 500 mg, 1, tablet, Chew, 2 times a day, # 60 tablet, Refills 5, Tot. Refills 5, Maintenance, 12/16/20 14:32:00 EST, Route to Pharmacy Electronically, [facility]/pharmacy #[id number], 159, cm, 12/16/20 13:47:00 EST, Height, 74.1, kg, 10/20/20 16:18:00 EST, Dry Weight Start Date: 12/16/20 Status: Ordered Tylenol Extra Strength 500 mg oral tablet 2 tablet = 1,000 mg, By Mouth, Every 6 hours, 0 Refills, Maintenance, 06/12/22 13:22:00 EDT, Partial fill upon patient request if the prescription is for a schedule II opioid drug. Start Date: 06/12/22 Status: Ordered Problem List Condition Confirmation Course Effective Dates Status H ealth Status Informant Hematuria 1 Confirmed Active Chronic back pain Confirmed Active Dyslipidemia Confirmed Active Allergic rhinitis Confirmed Active Illiteracy Confirmed Active Dyspepsia Confirmed Active Disc displacement Confirmed Active Onychomycosis Confirmed Active *[facility]/CC-Mary gayle [phone]/[facility], Active Care Coordination Confirmed Active Nasal septum perforation, h/o cocaine Confirmed Active Muscle spasm Confirmed Active Tubular adenoma of colon - due 2021 2 Confirmed 11/2015 Active 1, gross 2-2014, had cystoscopy 2014 removed 2015 Social History Social History Type Response Smoking Status Never smoker entered on: 08/23/16 Sex Patient Care team information Personnel Name: Trenton Eastman MD Address: Address: [address] [place] [address] [place], [place] [address]
--- OUTSIDE RECORDS SUMMARY | 2023-06-10 06:21 | XMS_ITS | Continuity of Care Document ---
Author Name Unknown Organization [facility] Address [address] [place] [address]- Care Team Providers Care Assembly Worker Name Role Phone Trenton Eastman MD Primary Care Phys[place] [facility] [place] [facility] [address] [place] [id number] Allergies, Adverse Reactions, Alerts Substance [...] 10/12/10 Given 1Admin Note: VIS given 05/30/10, [place]ese form 2Admin Note: VIS given, 08/2008, Marshallese form Medications amLODIPine 2.5 mg oral tablet 2.5 mg, 1, tablet, By Mouth, Daily, ; STOP amlodipine 5 mg. use this dose instead., # 30 tablet, Refills 5, Tot. Refills 5, Maintenance, 11/17/21 16:52:00 EST, Route to Pharmacy Electronically,[id number], label all scripts in ESTONIAN, 1... Start Date: 11/17/21 Stop Date: 05/16/22 Status: Ordered azelastine 0.05% ophthalmic solution 1 drops, Eyes, Both, 2 times a day, PRN for allergy symptoms, # 6 mL, 6 Refills, Maintenance, 01/13/21 14:54:00 EDT, [facility]/pharmacy #[id number], Label in Marshallese, 1 drops Eyes, Both 2 times a day,PRN:for allergy symptoms, 159, cm, 01/04/21 9:23:00 EDT, Height... Start Date: 01/13/21 Status: Ordered buPROPion 150 mg/24 hours (XL) oral tablet, extended release 1 tablet = 150 mg, By Mouth, Every 24 hours, # 30 tablet, 0 Refills, Maintenance, 09/28/21 13:54:00EST, ER Tablet, Partial fill upon patient request if the prescription is for a schedule II opioid drug. Start Date: 09/28/21 Status: Ordered ciclopirox 8% topical solution 1 application, Topically, Daily, Apply topically to affected toenails daily until infection is cleared, # 6.6 mL, 1 Refills, Maintenance, 08/28/21 14:44:00 EST, Solution, [facility]/pharmacy #[id number], Partial fill upon patient request if the prescription is for... Start Date: 08/28/21 Status: Ordered cyclobenzaprine 5 mg oral tablet 0 Refills, Maintenance, 09/28/21 13:55:00 EST, Partial fill upon patient request if the prescription is for a schedule II opioid drug. Start Date: 09/28/21 Status: Ordered diclofenac 3% topical gel 1 application, Topically, 2 times a day, # 100 Gm, 0 Refills, Maintenance, 04/28/21 17:22:00 EDT, Gel, [facility]/pharmacy #[id number], Partial fill upon patient request if the prescription is for a schedule II opioid drug., 1 application Topically 2 times a day,... Start Date: 04/28/21 Status: Ordered Flonase 50 mcg/inh nasal spray 1 sprays, Nares, Both, Daily, # 16 Gm, 1 Refills, Maintenance, 11/30/21 10:55:00 EST, [place], [facility]/pharmacy #[id number], 1 sprays Nares, Both Daily, 159, cm, 11/30/21 9:50:00 EST, Height, 78, kg, 01/01/21 16:06:00 EDT, Dry Weight Start Date: 11/30/21 Status: Ordered multivitamin Multiple Vitamins oral capsule 1 capsule, By Mouth, Daily, # 90 capsule, 0 Refills, Maintenance, 10/18/21 22:09:00 EST, Capsule, [facility]/pharmacy #[id number], 1 capsule By Mouth Daily, 159, cm, 10/05/21 13:26:00 EST, Height, 78, kg, 01/01/21 16:06:00 EDT, Dry Weight Start Date: 10/18/21 Status: Ordered NuLYTELY with Flavor Packs oral powder for reconstitution 240 mL, By Mouth, Every 10 minutes, # 1 each, 0 Refills, Maintenance, 09/21/21 9:33:00 EST, [facility] Pow[facility] Partial fill upon patient request if the prescription is for a schedule II opioid drug., 240 mL By Mouth Every 10 minut... Start Date: 09/21/21 Status: Ordered omeprazole 40 mg oral enteric coated capsule 1 capsule = 40 mg, By Mouth, 2 times a day, # 60 capsule, 2 Refills, Maintenance, 04/13/21 10:31:00EDT, EC Capsule, [facility]/pharmacy #[id number], Partial fill upon patient request if the prescription is for aschedule II opioid drug., 159, cm, 01/04/21 9:23:00... Start Date: 04/13/21 Stop Date: 07/12/21 Status: Ordered QUEtiapine 50 mg oral tablet 1 tablet = 50 mg, By Mouth, Daily, # 30 tablet, 0 Refills, Maintenance, 09/28/21 13:54:00 EST, Tablet, Partial fill upon patient request if the prescription is for a schedule II opioid drug. Start Date: 09/28/21 Status: Ordered tamsulosin 0.4 mg oral capsule 0.4 mg, 1, capsule, By Mouth, Daily, at night (print label in omani), # 30 capsule, Refills 1, Tot. Refills 1, Maintenance, 09/28/21 14:03:00 EST, [facility], Partial fill upon patient request if the... Start Date: 09/28/21 Status: Ordered Tears Naturale Forte preserved ophthalmic solution 1 drops, Eyes, Both, 2 times a day, PRN for dry eyes, # 30 mL, 0 Refills, Maintenance, 08/28/21 14:52:00 EST, Solution, [facility]/pharmacy #[id number], Partial fill upon patient request if the prescription is for a schedule II opioid drug., 1 drops Eyes, Both 2 t... Start Date: 08/28/21 Status: Ordered tiZANidine 2 mg oral capsule 1 capsule = 2 mg, By Mouth, 3 times a day, PRN as needed for muscle spasm, # 9 capsule, 0 Refills, Maintenance, 04/28/21 17:18:00 EDT, Capsule, [facility]/pharmacy #[id number], omani labeling, 159, cm, 04/28/2115:46:00 EDT, Height, 78, kg, 01/01/21 16:06:00 EDT... Start Date: 04/28/21 Stop Date: 05/01/21 Status: Ordered Tums 500 mg oral tablet, chewable 500 mg, 1, tablet, Chew, 2 times a day, # 60 tablet, Refills 5, Tot. Refills 5, Maintenance, 12/16/20 14:32:00 EST, Route to Pharmacy Electronically, [facility]/pharmacy #[id number], 159, cm, 12/16/20 13:47:00 EST, Height, 74.1, kg, 10/20/20 16:18:00 EST, Dry Weight Start Date: 12/16/20 Status: Ordered Problem List Condition Effective Dates Status Health Status Inform ant Hematuria(Confirmed) 1 Active Chronic back pain(Confirmed) Active Dyslipidemia(Confirmed) Active h/o allergic rhinitis(Confirmed) Active Illiteracy(Confirmed) Active Dyspepsia(Confirmed) Active Disc displacement(Confirmed) Active Onychomycosis(Confirmed) Active *[facility]-Patricia [phone]/[facility], Active Care Coordination(Confirmed) Active Muscle spasm(Confirmed) Active Tubular adenoma of colon - d ue 2021(Confirmed) 2 11/2015 Active 1, gross 2-2014, had cystoscopy 2014 Social History Social History Type Response Smoking Status Never smoker entered on: 08/23/16 Sex
--- OUTSIDE RECORDS SUMMARY | 2023-06-10 06:21 | XMS_ITS | Continuity of Care Document ---
Author Name Unknown Organization [facility] Address [address] [place] [address]- Care Team Providers Care Milk Receiver Name Role Phone Raiza KRISHNA, [place] Primary Care Physician [phone] Encounter [facility] Date(s): 10/31/22 - 11/30/22 [facility] [address] [place] [id number] Allergies, Adverse Reactions, Alerts Substance Reaction Severity Status penicillins Superficial gravel r enid Itching Active Immunizations Given and Recorded Vaccine Date Status Refusal Reason influenza virus vaccine, inactivated 08/19/22 Inocente rded influenza virus vaccine, inactivated 07/20/21 Inocente rded influenza virus vaccine, inactivated 07/27/20 Give n influenza virus vaccine, inactivated 12/21/19 Give n influenza virus vaccine, inactivated 07/15/19 Give n influenza virus vaccine, inactivated 08/17/18 Inocente rded influenza virus vaccine, inactivated 11/12/17 Inocente rded influenza virus vaccine, inactivated 1 10/12/10 Gi jocy SARS-CoV-2 mRNA ([id number]) vax 06/13/22 Recorded SARS-CoV-2 (COVID-19) mRNA BNT-162b2 vac 09/13/21 Recorded SARS-CoV-2 (COVID-19) mRNA BNT-162b2 vac 02/27/21 Given SARS-CoV-2 (COVID-19) mRNA BNT-162b2 vac 02/06/21 Given tetanus-diphtheria toxoids (Td) 11/23/20 Given tetanus/diphtheria/pertussis, acel(Tdap) 2 10/12/10 Given 1Admin Note: VIS given 05/30/10, [place] form 2Admin Note: VIS given, 08/2008, [place] form Medications amLODIPine 5 mg oral tablet 5 mg, 1, tablet, By Mouth, Daily, # 90 tablet, Refills 3, Tot. Refills 3, Maintenance, 11/01/22 9:44:00 EST, Route to Pharmacy Electronically, [facility]/pharmacy #[id number], Partial fill upon patient request ifthe prescription is for a schedule II opioid drug.,... Start Date: 11/01/22 Status: Ordered Artificial Tears preserved solution 1 drops, Eyes, Both, 2 times a day, PRN for dry eyes, # 30 mL, 0 Refills, Maintenance, 11/29/22 17:50:00 EST, Solution, [facility]/pharmacy #[id number], Partial fill upon patient request if the prescription is for a schedule II opioid drug., 1 drops Eyes, Both 2 t... Start Date: 11/29/22 Status: Ordered Ativan 0.5 mg oral tablet 1 tablet = 0.5 mg, By Mouth, Once, pakistani label, take 30 mins to 1 hr before flight, # 2 tablet, 0Refills, Soft Stop, 10/08/22 17:54:00 EST, Tablet, [facility]/pharmacy #[id number], Partial fill upon patient request if the prescription is for a schedule II opioi... Start Date: 10/08/22 Status: Ordered azelastine 137 mcg/inh (0.1%) nasal spray 0 Refills, Maintenance, 12/07/21 11:16:00 EST, via Dr Glover, video game technician Start Date: 12/07/21 Status: Ordered baclofen 10 mg oral tablet See Instructions, TOME JOAN TABLETA POR VIA ORAL KARLA VECES AL MONICA, # 63 tablet, Refills 0, Instructions Replace Required Details, Route to Pharmacy Electronically, [id number], 157.5, cm, 04/10/22 10:29:00 EDT, Height, 75, kg, 03/25/22 2:00:00 EDT... Start Date: 04/16/22 Status: Ordered buPROPion 150 mg/24 hours (XL) oral tablet, extended release via psychiatry, 0 Refills, Maintenance, 12/07/21 11:13:00 EST, Partial fill upon patient request ifthe prescription is for a schedule II opioid drug. Start Date: 12/07/21 Status: Ordered ciclopirox topical 0.77% suspension 1 application, Topically, 2 times a day, Print instructions in pakistani, # 60 mL, 1 Refills, Maintenance, 07/11/22 11:00:00 EDT, Suspension, [id number], Partial fill upon patient request if the prescription is for a schedule II opioid drug., 1... Start Date: 07/11/22 Status: Ordered [facility] LUBRICANT EYE DROPS Maintenance, 12/07/21 11:16:00 EST, via Dr Glover, video game technician, Supply Start Date: 12/07/21 Status: Ordered famotidine 40 mg oral tablet 1 tablet = 40 mg, By Mouth, 2 times a day, take 2x/day for 2 weeks then decrease to daily, # 60 tablet, 2 Refills, Maintenance, 06/24/22 12:04:00 EDT, Tablet, [id number], Partial fill upon patient request if the prescription is for a schedule... Start Date: 06/24/22 Stop Date: 09/22/22 Status: Ordered Flomax 0.4 mg oral capsule 0.4 mg, 1, capsule, By Mouth, Daily, # 30 capsule, Refills 5, Tot. Refills 5, Maintenance, 11/07/2310:08:00 EST, Route to Pharmacy Electronically, [id number], Partial fill upon patient request if the prescription is for a schedule II opioid d... Start Date: 11/07/22 Status: Ordered loratadine 10 mg oral tablet 10 mg, 1, tablet, By Mouth, Daily, # 30 tablet, Refills 5, Tot. Refills 5, Maintenance, 12/18/21 10:54:00 EST, Route to Pharmacy Electronically, [id number], Partial fill upon patient request if the prescription is for a schedule II opioid drug... Start Date: 12/18/21 Status: Ordered LUBRICNT EYE JESSICA 0.4-0.3% Maintenance, 12/07/21 11:16:00 EST, via Dr Glover, video game technician, Supply Start Date: 12/07/21 Status: Ordered minoxidil 2% topical solution 1 mL = 0.02 Gm, Topically, 2 times a day, # 60 mL, 2 Refills, Maintenance, 02/28/22 16:27:00 EDT, Solution, [id number], Partial fill upon patient request if the prescription is for a scheduleII opioid drug., 1 mL Topically 2 times a day, 159,... Start Date: 02/28/22 Status: Ordered multivitamin Multiple Vitamins oral capsule 1 capsule, By Mouth, Daily, # 90 capsule, 1 Refills, Maintenance, 09/12/22 9:06:00 EST, Capsule, [facility]/pharmacy #[id number], 1 capsule By Mouth Daily, 162.56, cm, 09/10/22 9:07:00 EST, Height, 76.5, kg, 06/12/22 13:23:00 EDT, Dry Weight Start Date: 09/12/22 Status: Ordered Mylanta Maximum Strength Blanco oral suspension 5 mL, By Mouth, 4 times a day, PRN for control of stomach acid, # 200 mL, 2 Refills, Maintenance, 09/06/22 10:23:00 EST, Suspension, [id number], Partial fill upon patient request if the prescription is for a schedule II opioid drug., 5 mL By M... Start Date: 09/06/22 Status: Ordered NuLYTELY with Flavor Packs oral powder for reconstitution See Instructions, per GI office, # 4,000 mL, 0 Refills, Maintenance, 06/11/22 9:43:00 EDT, [id number], Partial fill upon patient request if the prescription is for a schedule II opioid drug.,per GI office, 157.5, cm, 04/10/22 10:29:00 EDT, He... Start Date: 06/11/22 Status: Ordered Blackwell-3 1000 mg oral capsule via psychiatry, 0 Refills, Maintenance, 12/07/21 11:13:00 EST, Partial fill upon patient request ifthe prescription is for a schedule II opioid drug. Start Date: 12/07/21 Status: Ordered omeprazole 40 mg oral enteric coated capsule See Instructions, JUAN RAMON ROJASES AL MONICA, # 180 capsule, 1 Refills, Maintenance, 09/05/22 10:55:00 EST, [id number], 162.56, cm, 07/12/22 10:42:00 EDT, Height, 76.5, kg, 06/12/22 13:23:00 EDT, Dry Weight Start Date: 09/05/22 Status: Ordered Lynette-Colace 50 mg-8.6 mg oral tablet 2 tablet, By Mouth, Daily at bedtime, PRN Constipation, For constipation, # 60 tablet, 0 Refills, Maintenance, 01/02/22 20:52:00 EDT, Tablet, [facility]/pharmacy #[id number], Partial fill upon patient request if the prescription is for a schedule II opioid drug. L... Start Date: 01/02/22 Status: Ordered QUEtiapine 50 mg oral tablet via psychiatry, 0 Refills, Maintenance, 12/07/21 11:13:00 EST, Partial fill upon patient request ifthe prescription is for a schedule II opioid drug. Start Date: 12/07/21 Status: Ordered Saline Mist 0.65% nasal spray 2 sprays, Nares, Both, 4 times a day, # 60 mL, 0 Refills, Maintenance, 11/30/22 11:37:00 EST, [facility]/pharmacy #[id number], Partial fill upon patient request if the prescription is for a schedule II opioid drug., 2 sprays Nares, Both 4 times a day, 162.56, cm,... Start Date: 11/30/22 Status: Ordered Simply Saline 0.9% spray 1 sprays, Nares, Both, Every 30 minutes, PRN for dry nasal passages, # 45 mL, 4 Refills, Maintenance, 02/28/22 16:09:00 EDT, [place], [facility]/pharmacy #[id number], Partial fill upon patient request if the prescription is for a schedule II opioid drug., 1 sprays N... Start Date: 02/28/22 Status: Ordered Tears Naturale Forte preserved ophthalmic solution 1 drops, Eyes, Both, 2 times a day, PRN for dry eyes, # 30 mL, 0 Refills, Maintenance, 11/30/22 11:37:00 EST, Solution, [facility]/pharmacy #[id number], Partial fill upon patient request if the prescription is for a schedule II opioid drug., 1 drops Eyes, Both 2 t... Start Date: 11/30/22 Status: Ordered Tylenol Extra Strength 500 mg [...] Dyslipidemia Confirmed Active Allergic rhinitis Confirmed Active HTN (hypertension) Confirmed Active Illiteracy Confirmed Active Dyspepsia Confirmed Active Disc displacement Confirmed Active Onychomycosis Confirmed Active *[facility]/CC-Mary gayle [phone]/[facility], Active Care Coordination Confirmed Active Nasal septum perforation, h/o cocaine Confirmed Active Muscle spasm Confirmed Active Tubular adenoma of colon - due 2021 2 Confirmed 11/2015 Active 1, gross 2-2014, had cystoscopy 2014 Social History Social History Type Response Smoking Status Never smoker entered on: 08/23/16 Sex Patient Care team information Care Team Personnel Name: Raiza KRISHNA, [place] Position: [facility] Resident Member Role: PCP Address: Address: [address] [place] [address] [place] [address]- Care Team Related Persons Name: AJAY BE Address: [place] [address] Name: KAMALJIT FUCHS Address: home [address] [place] [address] [place] [id number]
--- OUTSIDE RECORDS SUMMARY | 2023-06-10 06:21 | XMS_ITS | Continuity of Care Document ---
Author Name Unknown Organization [facility] Address [address] [place] [address]- Care Team Providers Care Salvage Engineering Technician Name Role Phone Raiza KRISHNA, [place] Primary Care Physician [phone] Encounter [facility] Date(s): 01/18/23 - 02/17/23 [facility] [address] [place] [address] Allergies, Adverse Reactions, Alerts Substance Reaction Severity Status penicillins Superficial gravel r enid Itching Active Immunizations Given and Recorded Vaccine Date Status Refusal Reason zoster vaccine, inactivated 12/24/22 Recorded influenza virus vaccine, inactivated 08/19/22 Inocente rded influenza virus vaccine, inactivated 07/20/21 Inocente rded influenza virus vaccine, inactivated 07/27/20 Give n influenza virus vaccine, inactivated 12/21/19 Give n influenza virus vaccine, inactivated 07/15/19 Give n influenza virus vaccine, inactivated 08/17/18 Inocente rded influenza virus vaccine, inactivated 11/12/17 Inocente rded influenza virus vaccine, inactivated 1 10/12/10 Gi jocy SARS-CoV-2 mRNA ([id number]) vax 06/13/22 Recorded SARS-CoV-2 (COVID-19) mRNA BNT-162b2 vac 09/13/21 Recorded SARS-CoV-2 (COVID-19) mRNA BNT-162b2 vac 02/27/21 Given SARS-CoV-2 (COVID-19) mRNA BNT-162b2 vac 02/06/21 Given tetanus-diphtheria toxoids (Td) 11/23/20 Given tetanus/diphtheria/pertussis, acel(Tdap) 2 10/12/10 Given 1Admin Note: VIS given 05/30/10, Somali form 2Admin Note: VIS given, 08/2008, Somali form Medications amLODIPine 5 mg oral tablet 5 mg, 1, tablet, By Mouth, Daily, # 90 tablet, Refills 3, Tot. Refills 3, Maintenance, 11/01/22 9:44:00 EST, [id number] Partial fill upon patient request ifthe prescription is for a schedule II opioid drug.,... Start Date: 11/01/22 Status: Ordered Artificial Tears preserved solution 1 drops, Eyes, Both, 2 times a day, PRN for dry eyes, # 30 mL, 2 Refills, Maintenance, 02/04/23 9:35:00 EDT, Solution, [facility]/pharmacy #[id number], Partial fill upon patient request if the prescription is fora schedule II opioid drug., 1 drops Eyes, Both 2 ti... Start Date: 02/04/23 Status: Ordered Ativan 0.5 mg oral tablet 1 tablet = 0.5 mg, By Mouth, Once, italian label, take 30 mins to 1 hr before flight, # 2 tablet, 0Refills, Soft Stop, 10/08/22 17:54:00 EST, Tablet[id number] Partial fill upon patient request if the prescription is for a schedule II opioi... Start Date: 10/08/22 Status: Ordered atorvastatin 40 mg oral tablet 1 tablet = 40 mg, By Mouth, Daily, # 30 tablet, 5 Refills, Maintenance, 12/19/22 14:49:00 EST, Tablet, [facility], Partial fill upon patient request if the prescription is for a schedule II opioid drug., 162.56, cm, 12/19/22 14:01:00 E... Start Date: 12/19/22 Status: Ordered azelastine 137 mcg/inh (0.1%) nasal spray 0 Refills, Maintenance, 12/07/21 11:16:00 EST, via Dr Glover, oracle software engineer Start Date: 12/07/21 Status: Ordered baclofen 10 mg oral tablet See Instructions, TOME JOAN TABLETA POR VIA ORAL KARLA VECES AL MONICA, # 63 tablet, Refills 0, Instructions Replace Required Details, Route to Pharmacy Electronically, [id number], 157.5, cm, 04/10/22 10:29:00 EDT, Height, 75, [...] 2 times a day, Print instructions in italian use only for toenails, # 60 mL, 1 Refills, Maintenance, 01/18/23 10:15:00 EDT, Suspension, [facility]/pharmacy #[id number], Partial fill uponpatient request if the prescription is for a sched... Start Date: 01/18/23 Status: Ordered [facility] LUBRICANT EYE DROPS Maintenance, 12/07/21 11:16:00 EST, via Dr Glover, oracle software engineer, Supply Start Date: 12/07/21 Status: Ordered diclofenac 1% topical gel 1 application, Topically, 4 times a day, # 100 Gm, 5 Refills, Maintenance, 12/07/22 11:37:00 EST, Gel, [facility]/pharmacy #[id number], Partial fill upon patient request if the prescription is for a schedule II opioid drug., 162.56, cm, 12/07/22 10:29:00 EST, Heig... Start Date: 12/07/22 Status: Ordered famotidine 40 mg oral tablet 1 tablet = 40 mg, By Mouth, 2 times a day, take 2x/day for 2 weeks then decrease to daily, # 60 tablet, 2 Refills, Maintenance, 06/24/22 12:04:00 EDT, Tablet, [facility]/pharmacy #[id number], Partial fill upon patient request if the prescription is for a schedule... Start Date: 06/24/22 Stop Date: 09/22/22 Status: Ordered Flomax 0.4 mg oral capsule 0.4 mg, 1, capsule, By Mouth, Daily, # 30 capsule, Refills 5, Tot. Refills 5, Maintenance, 11/07/2310:08:00 EST, Route to Pharmacy Electronically, [facility]pharm[facility] #[id number], Partial fill upon patient request if the prescription is for a schedule II opioid d... Start Date: 11/07/22 Status: Ordered home COVID test home COVID test, See Instructions, # 2 each, Refills 0, Tot. Refills 0, Maintenance, use as directed, 02/15/23 9:33:00 EDT, Supply, 162.56, cm, 02/15/23 9:29:00 EDT, Height, 76.5, kg, 06/12/22 13:23:00 EDT, Dry Weight Start Date: 02/15/23 Status: Ordered ketoconazole 2% topical cream 1 application, Topically, Daily, Print instructions in italian Use only on feet, # 60 Gm, 1 Refills, Maintenance, 01/18/23 10:16:00 EDT, Cream, [id number], Partial fill upon patient request if the prescription is for a schedule II opioid drug... Start Date: 01/18/23 Status: Ordered loratadine 10 mg oral tablet 10 mg, 1, tablet, By Mouth, Daily, # 30 tablet, Refills 5, Tot. Refills 5, Maintenance, 12/18/21 10:54:00 EST, Route to Pharmacy Electronically, [id number], Partial fill upon patient request if the prescription is for a schedule II opioid drug... Start Date: 12/18/21 Status: Ordered LUBRICNT EYE JESSICA 0.4-0.3% Maintenance, 12/07/21 11:16:00 EST, via Dr Glover, oracle software engineer, Supply Start Date: 12/07/21 Status: Ordered minoxidil [...] 1 Refills, Maintenance, 09/12/22 9:06:00 EST, Capsule, [id number], 1 capsule By Mouth Daily, 162.56, cm, 09/10/22 9:07:00 EST, Height, 76.5, kg, 06/12/22 13:23:00 EDT, Dry Weight Start Date: 09/12/22 Status: Ordered Mylanta Maximum Strength Blanco oral suspension 5 mL, By Mouth, 4 times a day, PRN for control of stomach acid, # 200 mL, 5 Refills, Maintenance, 12/07/22 11:36:00 EST, Suspension, [id number], Partial fill upon patient request if the prescription is for a schedule II opioid drug., 5 mL By M... Start Date: 12/07/22 Status: Ordered NuLYTELY with Flavor Packs oral powder for reconstitution See Instructions, per GI office, # 4,000 mL, 0 Refills, Maintenance, 06/11/22 9:43:00 EDT, [id number], Partial fill upon patient request if the prescription is for a schedule II opioid drug.,per GI office, 157.5, cm, 04/10/22 10:29:00 EDT, He... Start Date: 06/11/22 Status: Ordered Mcdonald-3 1000 mg oral capsule via psychiatry, 0 Refills, Maintenance, 12/07/21 11:13:00 EST, Partial fill upon patient request ifthe prescription is for a schedule II opioid drug. Start Date: 12/07/21 Status: Ordered omeprazole 40 mg oral enteric coated capsule See Instructions, JUAN RAMON ROJASES AL MONICA, # 180 capsule, 1 Refills, Maintenance, 09/05/22 10:55:00 EST, [id number], 162.56, cm, 07/12/22 10:42:00 EDT, Height, 76.5, kg, 06/12/22 13:23:00 EDT, Dry Weight Start Date: 09/05/22 Status: Ordered Lynette-Colace 50 mg-8.6 mg oral tablet 2 tablet, By Mouth, Daily at bedtime, PRN Constipation, For constipation, # 60 tablet, 0 Refills, Maintenance, 01/02/22 20:52:00 EDT, Tablet, [id number], Partial fill upon patient request if the prescription is for a schedule II opioid drug. L... Start Date: 01/02/22 Status: Ordered QUEtiapine 50 mg oral tablet via psychiatry, 0 Refills, Maintenance, 12/07/21 11:13:00 EST, Partial fill upon patient request ifthe prescription is for a schedule II opioid drug. Start Date: 12/07/21 Status: Ordered rosuvastatin 5 mg oral tablet 1 tablet = 5 mg, By Mouth, Daily, cancel prior script for atorvastatin as of 2022, # 90 tablet, 11 Refills, Maintenance, 01/14/23 15:27:00 EDT, Tablet, [id number], label in Somali, 162.56,cm, 01/14/23 15:01:00 EDT, Height, 76.5, kg, ... Start Date: 01/14/23 Stop Date: 12/29/25 Status: Ordered Saline Mist 0.65% nasal spray 2 sprays, Nares, Both, 4 times a day, # 60 mL, 1 Refills, Maintenance, 02/08/23 13:50:00 EDT, [id number], Partial fill upon patient request if the prescription is for a schedule II opioid drug., 2 sprays Nares, Both 4 times a day, 162.56, cm,... Start Date: 02/08/23 Status: Ordered Simply Saline 0.9% spray 1 sprays, Nares, Both, Every 30 minutes, PRN for dry nasal passages, # 45 mL, 4 Refills, Maintenance, 02/28/22 16:09:00 EDT, [place], [id number], Partial fill upon patient request if the prescription is for a schedule II opioid drug., 1 sprays N... Start Date: 02/28/22 Status: Ordered Tears Naturale Forte preserved ophthalmic solution 1 drops, Eyes, Both, 2 times a day, PRN for dry eyes, # 30 mL, 0 Refills, Maintenance, 11/30/22 11:37:00 EST, Solution, [id number], Partial fill upon patient request if [...] back pain Confirmed Active Dyslipidemia Confirmed Active GERD (gastroesophageal reflux disease) Confirmed Active Allergic rhinitis Confirmed Active Hyperlipidemia Confirmed Active HTN (hypertension) Confirmed Active Illiteracy Confirmed Active Dyspepsia Confirmed Active Disc displacement Confirmed Active Onychomycosis Confirmed Active *N/ONECARE/CC-Patricia [phone]/[facility], Active Care Coordination Confirmed Active Nasal septum perforation, h/o cocaine Confirmed Active Prediabetes Confirmed Active Severe obesity (BMI 35.0-39.9) with comorbidity Confirmed Active Muscle spasm Confirmed Active Tubular adenoma of colon - due 2021 2 Confirmed 11/2015 Active 1, gross 2-2014, had cystoscopy 2014 removed 2015 Social History Social History Type Response Smoking Status Never smoker entered on: 08/23/16 Sex Patient Care team information Care Team Personnel Name: Raiza KRISHNA, [place] Position: [facility] Resident Member Role: PCP Address: Address: [address] [place] [address] [place] [address]- Care Team Related Persons Name: AJAY BE Address: [place] [address] Name: KAMALJIT FUCHS Address: home [address] [place] [address] [place] [id number]
--- OUTSIDE RECORDS SUMMARY | 2023-06-10 06:21 | XMS_ITS | Continuity of Care Document ---
Author Name Unknown Organization [facility] Address [address] [place] [address]- Care Team Providers Care Soft Sugar Cutter Name Role Phone [place] Eastman MD Primary Care Physician Encounter [facility] Date(s): 05/01/21 - 08/20/21 [facility] [address] [place] [id number]- Attending Physician: Guy Bingham MD Admitting Physician: Zachery KRISHNA, Guy Referring Physician: Varun Torre MD Allergies, Adverse Reactions, Alerts Substance Reaction [...] 10/12/10 Given 1Admin Note: VIS given 05/30/10, Sri Lankan form 2Admin Note: VIS given, 08/2008, Sri Lankan form Medications amLODIPine 2.5 mg oral tablet 2.5 mg, 1, tablet, By Mouth, Daily, ; STOP amlodipine 5 mg. use this dose instead., # 30 tablet, Refills 11, Tot. Refills 11, Maintenance, 11/22/20 16:52:00 EST, Route to Pharmacy Electronically, [facility]/pharmacy #[id number], label all scripts in [place],... Start Date: 11/22/20 Stop Date: 11/17/21 Status: Ordered azelastine 0.05% ophthalmic solution 1 drops, Eyes, Both, 2 times a day, PRN for allergy symptoms, # 6 mL, 6 Refills, Maintenance, 01/13/21 14:54:00 EDT, [facility]/pharmacy #[id number], Label in Sri Lankan, 1 drops Eyes, Both 2 times a day,PRN:for allergy symptoms, 159, cm, 01/04/21 9:23:00 EDT, Height... Start Date: 01/13/21 Status: Ordered diclofenac 3% topical gel 1 application, Topically, 2 times a day, # 100 Gm, 0 Refills, Maintenance, 04/28/21 17:22:00 EDT, Gel, [facility]/pharmacy #[id number], Partial fill upon patient request if the prescription is for a schedule II opioid drug., 1 application Topically 2 times a day,... Start Date: 04/28/21 Status: Ordered Flonase 50 mcg/inh nasal spray 1 sprays, Nares, Both, Daily, # 16 Gm, 1 Refills, Maintenance, 06/16/20 18:04:00 EDT, [place], [id number], 159, cm, 06/08/20 13:31:00 EDT, [...] 0 Refills, Maintenance, 04/28/21 17:18:00 EDT, Capsule, [facility]/pharmacy #[id number], anguillan labeling, 159, cm, 04/28/2115:46:00 EDT, Height, 78, kg, 01/01/21 16:06:00 EDT... Start Date: 04/28/21 Stop Date: 05/01/21 Status: Ordered Tums 500 mg oral tablet, chewable 500 mg, 1, tablet, Chew, 2 times a day, # 60 tablet, Refills 5, Tot. Refills 5, Maintenance, 12/16/20 14:32:00 EST, Route to Pharmacy Electronically, [facility]/pharmacy #[id number], 159, cm, 12/16/20 13:47:00 EST, Height, 74.1, kg, 10/20/20 16:18:00 EST, Dry Weight Start Date: 12/16/20 Status: Ordered Problem List Condition Effective Dates Status Health Status Inform ant Hematuria(Confirmed) 1 Active Chronic back pain(Confirmed) Active Dyslipidemia(Confirmed) Active h/o allergic rhinitis(Confirmed) Active Illiteracy(Confirmed) Active Dyspepsia(Confirmed) Active Disc displacement(Confirmed) Active Onychomycosis(Confirmed) Active BHN/ONECARE/CC-Serena Purcell-[phone]/Health Longterm, Active Care Coordination(Confirmed) Active Muscle spasm(Confirmed) Active Tubular adenoma of colon - d ue 2021(Confirmed) 2 11/2015 Active lul Vick 2-2014, had cystoscopy 2014 Social History Social History Type Response Smoking Status Never smoker entered on: 08/23/16 Sex
--- OUTSIDE RECORDS SUMMARY | 2023-06-10 06:21 | XMS_ITS | Continuity of Care Document ---
Author Name Unknown Organization [facility] Address [address] [place] [address]- Care Team Providers Care Chief Engineer'S Helper Name Role Phone Raiza KRISHNA, [place] Primary Care Physician [facility] Date[facility]s): 01/15/23 - 02/14/23 [facility] [address] [place] [id number] Allergies, Adverse Reactions, Alerts Substance Reaction Severity [...] inactivated 1 10/12/10 Gi jocy SARS-CoV-2 mRNA ([id number]) vax 06/13/22 Recorded SARS-CoV-2 (COVID-19) mRNA BNT-162b2 vac 09/13/21 Recorded SARS-CoV-2 (COVID-19) mRNA BNT-162b2 vac 02/27/21 Given SARS-CoV-2 (COVID-19) mRNA BNT-162b2 vac 02/06/21 Given tetanus-diphtheria toxoids (Td) 11/23/20 Given tetanus/diphtheria/pertussis, acel(Tdap) 2 10/12/10 Given 1Admin Note: VIS given 05/30/10, Chilean form 2Admin Note: VIS given, 08/2008, Chilean form Medications amLODIPine 5 mg oral tablet 5 mg, 1, tablet, By Mouth, Daily, # 90 tablet, Refills 3, Tot. Refills 3, Maintenance, 11/01/22 9:44:00 EST, [id number] fill upon patient request ifthe prescription is for a schedule II opioid drug.,... Start Date: 11/01/22 Status: Ordered Artificial Tears preserved solution 1 drops, Eyes, Both, 2 times a day, PRN for dry eyes, # 30 mL, 2 Refills, Maintenance, 02/04/23 9:35:00 EDT, Solution, [facility]/pharmacy #[id number], Partial fill upon patient request if the prescription is fora schedule II opioid drug., 1 drops Eyes, Both 2 ti... Start Date: 02/04/23 Status: Ordered Ativan 0.5 mg oral tablet 1 tablet = 0.5 mg, By Mouth, Once, south sudanese label, take 30 mins to 1 hr before flight, # 2 tablet, 0Refills, Soft Stop, 10/08/22 17:54:00 EST, [id number] Partial fill upon patient request if the prescription is for a schedule II opioi... Start Date: 10/08/22 Status: Ordered atorvastatin 40 mg oral tablet 1 tablet = 40 mg, By Mouth, Daily, # 30 tablet, 5 Refills, Maintenance, 12/19/22 14:49:00 EST, Tablet, [facility], Partial fill upon patient request if the prescription is for a schedule II opioid drug., 162.56, cm, 12/19/22 14:01:00 E... Start Date: 12/19/22 Status: Ordered azelastine 137 mcg/inh (0.1%) nasal spray 0 Refills, Maintenance, 12/07/21 11:16:00 EST, via Dr Glover, commercial account manager Start Date: 12/07/21 Status: Ordered baclofen 10 mg oral tablet See Instructions, TOME JOAN TABLETA POR VIA ORAL KARLA VECES AL MONICA, # 63 tablet, Refills 0, Instructions Replace Required Details, Route to Pharmacy Electronically, [id number], 157.5, cm, 04/10/22 10:29:00 EDT, Height, 75, [...] 2 times a day, Print instructions in south sudanese use only for toenails, # 60 mL, 1 Refills, Maintenance, 01/18/23 10:15:00 EDT, Suspension, [facility]/pharmacy #[id number], Partial fill uponpatient request if the prescription is for a sched... Start Date: 01/18/23 Status: Ordered [facility] LUBRICANT EYE DROPS Maintenance, 12/07/21 11:16:00 EST, via Dr Glover, commercial account manager, Supply Start Date: 12/07/21 Status: Ordered diclofenac 1% topical gel 1 application, Topically, 4 times a day, # 100 Gm, 5 Refills, Maintenance, 12/07/22 11:37:00 EST, Gel, [facility]/pharmacy #[id number], Partial fill upon patient request if the prescription is for a schedule II opioid drug., 162.56, cm, 12/07/22 10:29:00 EST, Heig... Start Date: 12/07/22 Status: Ordered famotidine 40 mg oral tablet 1 tablet = 40 mg, By Mouth, 2 times a day, take 2x/day for 2 weeks then decrease to daily, # 60 tablet, 2 Refills, Maintenance, 06/24/22 12:04:00 EDT, Tablet, [facility]/pharmacy #[id number], Partial fill upon patient request if the prescription is for a schedule... Start Date: 06/24/22 Stop Date: 09/22/22 Status: Ordered Flomax 0.4 mg oral capsule 0.4 mg, 1, capsule, By Mouth, Daily, # 30 capsule, Refills 5, Tot. Refills 5, Maintenance, 11/07/2310:08:00 EST, Route to Pharmacy Electronically, [facility]/pharmacy #[id number], Partial fill upon patient request if the prescription is for a schedule II opioid d... Start Date: 11/07/22 Status: Ordered ketoconazole 2% topical cream 1 application, Topically, Daily, Print instructions in south sudanese Use only on feet, # 60 Gm, 1 Refills, Maintenance, 01/18/23 10:16:00 EDT, Cream, [facility]/pharm[facility] #[id number], Partial fill upon patient request if [...] Maintenance, 12/07/21 11:16:00 EST, via Dr Glover, commercial account manager, Supply Start Date: 12/07/21 Status: Ordered [...] EDT, He... Start Date: 06/11/22 Status: Ordered Trimble-3 1000 mg oral capsule via psychiatry, 0 Refills, Maintenance, 12/07/21 11:13:00 EST, Partial fill upon patient request ifthe prescription is for a schedule II opioid drug. Start Date: 12/07/21 Status: Ordered omeprazole 40 mg oral enteric coated capsule See Instructions, JUAN RAMON ARTA DOS VECES AL MONICA, # 180 capsule, 1 Refills, Maintenance, 09/05/22 10:55:00 EST, [id number], 162.56, cm, 07/12/22 10:42:00 EDT, Height, 76.5, [...] 11 Refills, Maintenance, 01/14/23 15:27:00 EDT, Tablet, [id number], label in [place]an, 162.56,cm, 01/14/23 15:01:00 EDT, Height, 76.5, kg, 06/12/... Start Date: 01/14/23 Stop Date: 12/29/25 Status: Ordered Saline Mist 0.65% nasal spray 2 sprays, Nares, Both, 4 times a day, # 60 mL, 1 Refills, Maintenance, 02/08/23 13:50:00 EDT, [id number], Partial fill upon patient request if the prescription is for a schedule II opioid drug., 2 sprays Nares, Both 4 times a day, 162.56, cm,... Start Date: 02/08/23 Status: Ordered Simply Saline 0.9% spray 1 sprays, Nares, Both, Every 30 minutes, PRN for dry nasal passages, # 45 mL, 4 Refills, Maintenance, 02/28/22 16:09:00 EDT, [place], [id number], Partial fill upon patient request if the prescription is for a schedule II opioid drug., 1 sprays N... Start Date: 02/28/22 Status: Ordered Tears Naturale Forte preserved ophthalmic solution 1 drops, Eyes, Both, 2 times a day, PRN for dry eyes, # 30 mL, 0 Refills, Maintenance, 11/30/22 11:37:00 EST, Solution, [id number], Partial fill upon patient [...] displacement Confirmed Active Onychomycosis Confirmed Active *N/ONECARE/CC-Patricia [phone]/[facility], Active Care Coordination Confirmed Active Nasal septum perforation, h/o cocaine Confirmed Active Prediabetes Confirmed Active Severe obesity (BMI 35.0-39.9) with comorbidity Confirmed Active Muscle spasm Confirmed Active Tubular adenoma of colon - due 2021 2 Confirmed 11/2015 Active 1lul 2-2014, had cystoscopy 2014 Social History Social History Type Response Smoking Status Never smoker entered on: 08/23/16 Sex Patient Care team information Care Team Personnel Name: Raiza KRISHNA, [place] Position: [facility] Resident Member Role: PCP Address: Address: [address] [place] [address]- Care Team Related Persons Name: AJAY BE Address: [place] [address] Name: KAMALJIT FUCHS Address: home [address] [place] [address] [place] [id number]
--- OUTSIDE RECORDS SUMMARY | 2023-06-10 06:21 | XMS_ITS | Continuity of Care Document ---
Author Name Unknown Organization [facility] ter Address [address] [place] [id number]- Care Team Providers Care Gunnery/Ordnance Officer Name Role Phone Hugh Spence MD Primary Care Physician Encounter [facility] Date(s): 01/01/21 - 01/01/[address] [address]- Encounter Diagnosis Musculoskeletal back pain(Final) - 01/01/21 Discharge Disposition: A-D/C Home Attending Physician: Manuel Molina MD Admitting Physician: Manuel Molina MD Referring Physician: Not on Staff, Referring MD Allergies, Adverse Reactions, Alerts Substance Reaction Severity Status penicillins Active Immunizations Given and Recorded Vaccine Date Status Refusal Reason tetanus-diphtheria toxoids (Td) 11/23/20 Given influenza virus vaccine, inactivated 07/27/20 Give n influenza virus vaccine, inactivated 12/21/19 Give n influenza virus vaccine, inactivated 07/15/19 Give n influenza virus vaccine, inactivated 1 10/12/10 Gi jocy tetanus/diphtheria/pertussis, acel(Tdap) 2 10/12/10 Given 1Admin Note: VIS given 05/30/10, [place] form 2Admin Note: VIS given, 08/2008, [place] form Medications amLODIPine 2.5 mg oral tablet 2.5 mg, 1, tablet, By Mouth, Daily, ; STOP amlodipine 5 mg. use this dose instead., # 30 tablet, Refills 11, Tot. Refills 11, Maintenance, 11/22/20 16:52:00 EST, Route to Pharmacy Electronically, [facility]/pharmacy #[id number], label all scripts in ESTONIAN,... Start Date: 11/22/20 Stop Date: 11/17/21 Status: Ordered diclofenac 1% topical gel 1 application, Topically, 4 times a day, not to exceed 32 grams/day, # 100 Gm, 2 Refills, Maintenance, 12/12/20 11:17:00 EST, Gel, [facility]/pharmacy #[id number], Label in [place] please, 159, cm, 12/12/20 10:33:00 EST, Height, 74.1, kg, 10/20/20 16:18:00 EST, Start Date: 12/12/20 Status: Ordered Flonase 50 mcg/inh nasal spray 1 sprays, Nares, Both, Daily, # 16 Gm, 1 Refills, Maintenance, 06/16/20 18:04:00 EDT, [place], [facility]/pharmacy #[id number], 159, cm, 06/08/20 13:31:00 EDT, Height Start Date: 06/16/20 Status: Ordered lidocaine 4% topical film 1 patch, Topically, Daily, for 6 days, # 6 patch, 0 Refills, Acute 01/07/21 15:32:00 EDT, 01/01/21 15:32:00 EDT, Film, [facility]/pharmacy #[id number], Partial fill upon patient request if the prescription is fora schedule II opioid drug., 1 patch Topically Daily... Start Date: 01/01/21 Stop Date: 01/07/21 Status: Ordered multivitamin Multiple Vitamins oral capsule 1 capsule, By Mouth, Daily, # 90 capsule, 11 Refills, Maintenance, 08/12/20 11:32:00 EDT, Capsule, [facility]/pharmacy #[id number], 1 capsule By Mouth Daily, 159, cm, 07/27/20 13:20:00 EDT, Height Start Date: 08/12/20 Status: Ordered omeprazole 40 mg oral enteric coated capsule 1 capsule = 40 mg, By Mouth, 2 times a day, # 60 capsule, 0 Refills, Maintenance, 12/13/20 12:59:00EST, EC Capsule, [id number], Partial fill upon patient request if the prescription is for aschedule II opioid drug., 159, cm, 12/12/20 10:33:0... Start Date: 12/13/20 Stop Date: 01/12/21 Status: Ordered omeprazole 40 mg oral enteric coated capsule 1 capsule = 40 mg, By Mouth, 2 times a day, # 60 capsule, 4 Refills, Maintenance, 10/05/20 14:48:00EST, EC Capsule, [facility]/pharmacy #[id number], Partial fill upon patient request if the prescription is for aschedule II opioid drug., 159, cm, 07/27/20 13:20:0... Start Date: 10/05/20 Stop Date: 03/04/21 Status: Ordered prazosin 2 mg oral capsule via Psychaitry, Syl Riley, 0 Refills, Maintenance, 11/22/20 16:15:00 EST, Partial fill upon patient request if the prescription is for a schedule II opioid drug. Start Date: 11/22/20 Status: Ordered predniSONE 20 mg oral tablet 1 tablet = 20 mg, By Mouth, Daily, for 4 days, with food or milk Start on 01/02/2021 as first dose given in ED, # 4 tablet, 0 Refills, Acute 01/05/21 15:32:00 EDT, 01/01/21 15:32:00 EDT, Tablet, [facility]/pharmacy #[id number], Partial fill upon patient request... Start Date: 01/01/21 Stop Date: 01/05/21 Status: Ordered QUEtiapine 100 mg oral tablet [...] MOOD STABILIZATION Start Date: 12/16/20 Status: Ordered Tums 500 mg oral tablet, chewable 500 mg, 1, tablet, Chew, 2 times a day, # 60 tablet, Refills 5, Tot. Refills 5, Maintenance, 12/16/20 14:32:00 EST, Route to Pharmacy Electronically, [facility]/pharmacy #[id number], 159, cm, 12/16/20 13:47:00 EST, Height, 74.1, kg, 10/20/20 16:18:00 EST, Dry Weight Start Date: 12/16/20 Status: Ordered Tylenol 8 HR Arthritis Pain 650 mg oral tablet, extended release 1 tablet = 650 mg, By Mouth, Every 8 hours, # 100 tablet, 1 Refills, Acute 12/05/21 9:00:00 EST, 12/05/20 15:26:00 EST, ER Tablet, [id number], 159, cm, 07/27/20 13:20:00 EDT, Height, 74.1, kg, 10/20/20 16:18:00 EST, Dry Weight Start Date: 12/05/20 Stop Date: 12/05/21 Status: Ordered Problem List Condition Effective Dates Status Health Status Inform ant Hematuria(Confirmed) 1 Active Chronic back pain(Confirmed) Active Dyslipidemia(Confirmed) Active h/o allergic rhinitis(Confirmed) Active Illiteracy(Confirmed) Active Dyspepsia(Confirmed) Active Disc displacement(Confirmed) Active [facility]/CC-Serena Purclel-[phone]/Health Custodial, Active Care Coordination(Confirmed) Active Tubular adenoma of colon - d ue 2021(Confirmed) 2 11/2015 Active 1, gross 2-2014, had cystoscopy 2014 Vital Signs Most recent to oldest [Reference Range]: 1 2 3 Weight 78.0 kg (01/01/21 4:06 PM) 78.0 kg (01/01/21 2:43 PM) 78.0 kg (01/01/21 12:16 PM) Oxygen Saturation [94-100 %] 98 % (01/01/21 4:06 PM) 100 % (01/01/21 2:43 PM) 100 % (01/01/21 12:16 PM) Pulse Rate [55-90 bpm] 78 bpm (01/01/21 4:06 PM) 62 bpm (01/01/21 2:43 PM) 98 bpm *H* (01/01/21 12:16 PM) Blood Pressure [90-138/55-84 mm Hg] 144/69mm Hg *H* (01/01/21 4:06 PM) 133/89mm Hg (01/01/21 2:43 PM) 157/113mm Hg *H* (01/01/21 12:16 PM) Respiratory Rate [16-30 br/min] 18 br/min (01/01/21 4:06 PM) 16 br/min (01/01/21 2:43 PM) 18 br/min (01/01/21 12:16 PM) Temperature [96.8-100.4 DegF] 97.9 DegF (01/01/21 12:16 PM) Mode of Delivery (Oxygen) Room air (01/01/21 4:06 PM) Room air (01/01/21 2:43 PM) Room air (01/01/21 12:16 PM) Blood pressure sites Arm, right (01/01/21 4:06 PM) Arm, left (01/01/21 12:16 PM) Temperature Route Oral (01/01/21 12:16 PM) Dry Weight 78.0 kg (01/01/21 4:06 PM) 78.0 kg (01/01/21 2:43 PM) 78.0 kg (01/01/21 12:16 PM) Weight Obtained Via Standing scale (01/01/21 12:16 PM) Dry Weight Obtained Via Standing scale (01/01/21 12:16 PM) Social History Social History Type Response Smoking Status Never smoker entered on: 08/23/16 Sex
--- OUTSIDE RECORDS SUMMARY | 2023-06-10 06:22 | XMS_ITS | Continuity of Care Document ---
Author Name Unknown Organization [facility] Address [address] [place] [address]- Care Team Providers Care Gas Turbine Powerplant Mechanic Helper Name Role Phone Melvi KRISHNA, Samuel Palacios Primary Care Physician En[place] [facility] [place] Date(s): 03/01/20 - 03/08/20 [facility] [address] [place] [address]- [facility] Attending Physician: Blu Smith MD Allergies, Adverse Reactions, Alerts Substance Reaction Severity Status penicillins Active Immunizations Given and Recorded Vaccine Date Status Refusal Reason influenza virus vaccine, inactivated 12/21/19 Give n influenza virus vaccine, inactivated 07/15/19 Give n influenza virus vaccine, inactivated 1 10/12/10 Gi jocy tetanus/diphtheria/pertussis, acel(Tdap) 2 10/12/10 Given 1Admin Note: VIS given 05/30/10, [place] form 2Admin Note: VIS given, 08/2008, [place] form Medications Artificial Tears preserved solution 1 drops, Eyes, Both, 2 times a day, PRN for dry eyes, # 10 mL, 0 Refills, Maintenance, 10/19/19 14:27:00 EST, [facility], 1 drops Eyes, Both 2 times a day,PRN:for dry eyes, 159, cm, 10/19/19 13:35:00 EST, Height Start Date: 10/19/19 Status: Ordered loratadine 10 mg oral tablet 10 mg, 1, tablet, By Mouth, Daily, # 30 tablet, Refills 2, Tot. Refills 2, Maintenance, 12/22/19 21:46:00 EST, Route to Pharmacy Electronically, [facility]/pharmacy #[id number], 159, cm, 12/21/19 13:52:00 EST, Height Start Date: 12/22/19 Stop Date: 03/15/20 Status: Ordered meloxicam 15 mg oral tablet 1 tablet = 15 mg, By Mouth, Daily, # 30 tablet, 3 Refills, Maintenance, 01/06/20 14:22:00 EDT, Tablet, [facility] 159, cm, 12/21/19 13:52:00 EST, Height Start Date: 01/06/20 Stop Date: 05/05/20 Status: Ordered Mylanta Maximum Strength oral suspension 20 mL, By Mouth, 4 times a day, between meals and at bedtime, # 240 mL, 1 Refills, Maintenance, 10/19/19 14:27:00 EST, Suspension, [facility]., 20 mL By Mouth 4 times a day,Instr:between meals and at bedtime, 159, cm, 10/19/19 13:35:00... Start Date: 10/19/19 Status: Ordered omeprazole 40 mg oral enteric coated capsule 1 capsule = 40 mg, By Mouth, Daily, # 30 capsule, 2 Refills, Maintenance, 01/14/20 11:09:00 EDT, ECCapsule, [facility] 159, cm, 12/21/19 13:52:00 EST, Height Start Date: 01/14/20 Stop Date: 04/13/20 Status: Ordered prazosin 2 mg oral capsule via Syl Riley, Psychiatry, 0 Refills, Maintenance, 11/04/19 14:42:00 EST Start Date: 11/04/19 Status: Ordered QUEtiapine 200 mg oral tablet via Syl Riley, Psychiatry, Refills 0, Maintenance, 11/04/19 14:42:00 EST Start Date: 11/04/19 Status: Ordered Tums 500 mg oral tablet, chewable 500 mg, 1, tablet, Chew, 2 times a day, # 60 tablet, Refills 3, Tot. Refills 3, Maintenance, 01/14/20 11:08:00 EDT, Route to Pharmacy Electronically, [facility] 159, cm, 12/21/19 13:52:00 EST, Height Start Date: 01/14/20 Status: Ordered Problem List Condition Effective Dates Status Health Status Inform ant Hematuria(Confirmed) 1 Active Chronic back pain(Confirmed) Active Depression(Confirmed) Active Dyslipidemia(Confirmed) Active h/o allergic rhinitis(Confirmed) Active Illiteracy(Confirmed) Active Disc displacement(Confirmed) Active *[facility], [facility], (Confirmed) 08/06/18 Active N/[facility]-Serena Purcell-[phone]/Health Jail, Active Care Coordination(Confirmed) Active Tubular adenoma of colon - d ue 2021(Confirmed) 2 11/2015 Active lul Vick 2-2014, had cystoscopy 2014 Social History Social History Type Response Smoking Status Never smoker entered on: 08/23/16 Sex
--- OUTSIDE RECORDS SUMMARY | 2023-06-10 06:22 | XMS_ITS | Continuity of Care Document ---
Author Name Unknown Organization [facility] Address [address] [place] [address]- Care Team Providers Care Microelectronics Engineer Name Role Phone Bebe KRISHNA, Hugh Primary Care Physician Encounter [facility] Date(s): 06/21/20 - 07/21/20 [facility] [address] [place] [address]- [facility] Allergies, Adverse Reactions, Alerts Substance Reaction Severity Status penicillins Active Immunizations Given and Recorded Vaccine Date Status Refusal Reason influenza virus vaccine, inactivated 12/21/19 Give n influenza virus vaccine, inactivated 07/15/19 Give n influenza virus vaccine, inactivated 1 10/12/10 Gi jocy tetanus/diphtheria/pertussis, acel(Tdap) 2 10/12/10 Given 1Admin Note: VIS given 05/30/10, [place] form 2Admin Note: VIS given, 08/2008, [place]ry[place]in[place] form Medications amLODIPine 5 mg oral tablet 5 mg, 1, tablet, By Mouth, Daily, # 90 tablet, Refills 10, Tot. Refills 10, Maintenance, 06/08/20 15:00:00 EDT, Route to Pharmacy Electronically, [facility]/pharmacy #[id number], 159, cm, 06/08/20 13:31:00 EDT, Height Start Date: 06/08/20 Stop Date: 02/23/23 Status: Ordered Artificial Tears preserved solution 1 drops, Eyes, Both, 2 times a day, PRN for dry eyes, # 10 mL, 0 Refills, Maintenance, 10/19/19 14:27:00 EST, [facility] 1 drops Eyes, Both 2 times a day,PRN:for dry eyes, 159, cm, 10/19/19 13:35:00 EST, Height Start Date: 10/19/19 Status: Ordered dextromethorphan 10 mg/5 mL oral syrup 10 mL = 20 mg, By Mouth, Every 4 hours, PRN as needed for cough, # 120 mL, 0 Refills, Maintenance, 06/21/20 22:41:00 EDT, Syrup, [facility]/pharmacy #[id number], 159, cm, 06/08/20 13:31:00 EDT, Height Start Date: 06/21/20 Status: Ordered Flonase 50 mcg/inh nasal spray 1 sprays, Nares, Both, 2 times a day, # 16 Gm, 1 Refills, Maintenance, 06/16/20 18:04:00 EDT, [place], [facility]/pharmacy #[id number], 1 sprays Nares, Both 2 times a day, 159, cm, 06/08/20 13:31:00 EDT, Height Start Date: 06/16/20 Status: Ordered loratadine 10 mg oral tablet 10 mg, 1, tablet, By Mouth, Daily, # 30 tablet, Refills 2, Tot. Refills 2, Maintenance, 12/22/19 21:46:00 EST, Route to Pharmacy Electronically, [facility]/pharmacy #[id number], 159, cm, 12/21/19 13:52:00 EST, Height Start Date: 12/22/19 Stop Date: 03/15/20 Status: Ordered Mylanta Maximum Strength oral suspension 20 mL, By Mouth, 4 times a day, between meals and at bedtime, # 240 mL, 1 Refills, Maintenance, 10/19/19 14:27:00 EST, Suspension, [facility], 20 mL By Mouth 4 times a day,Instr:between meals and at bedtime, 159, cm, 10/19/19 13:35:00... Start Date: 10/19/19 Status: Ordered omeprazole 40 mg oral enteric coated capsule 1 capsule = 40 mg, By Mouth, Daily, # 30 capsule, 2 Refills, Maintenance, 05/12/20 11:33:00 EDT, ECCapsule, [facility]/pharmacy #[id number], 159, cm, 12/21/19 13:52:00 EST, Height Start Date: 05/12/20 Stop Date: 08/10/20 Status: Ordered prazosin 2 mg oral capsule via Josie March, 0 Refills, Maintenance, 11/04/19 14:42:00 EST Start Date: 11/04/19 Status: Ordered QUEtiapine 200 mg oral tablet via Syl Riley, Psychiatry, Refills 0, Maintenance, 11/04/19 14:42:00 EST Start Date: 11/04/19 Status: Ordered Tums 500 mg oral tablet, chewable 500 mg, 1, tablet, Chew, 2 times a day, # 60 tablet, Refills 3, Tot. Refills 3, Maintenance, 01/14/20 11:08:00 EDT, Route to Pharmacy Electronically, [facility], 159, cm, 12/21/19 13:52:00 EST, Height Start Date: 01/14/20 Status: Ordered Problem List Condition Effective Dates Status Health Status Inform ant Hematuria(Confirmed) 1 Active Chronic back pain(Confirmed) Active Depression(Confirmed) Active Dyslipidemia(Confirmed) Active h/o allergic rhinitis(Confirmed) Active Illiteracy(Confirmed) Active Dyspepsia(Confirmed) Active Disc displacement(Confirmed) Active *[facility], [facility], (Confirmed) 08/06/18 Active [facility]/-Serena Purcell-[phone]/[facility], Active Care Coordination(Confirmed) Active Tubular adenoma of colon - d ue 2021(Confirmed) 2 11/2015 Active lul Vick 2-2014, had cystoscopy 2014 Social History Social History Type Response Smoking Status Never smoker entered on: 08/23/16 Sex
--- OUTSIDE RECORDS SUMMARY | 2023-06-10 06:22 | XMS_ITS | Continuity of Care Document ---
Author Name Unknown Organization [facility] Address [address] [place] [address]- Care Team Providers Care Software Engineering Project Manager Name Role Phone Raiza KRISHNA, Trenton Primary Care Physician Encounter [facility] Date(s): 02/18/23 - 03/20/23 [facility] [address] [place] [id number] Allergies, Adverse Reactions, Alerts Substance Reaction [...] inactivated 1 10/12/10 Gi jocy SARS-CoV-2 mRNA ([id number]) vax 06/13/22 Recorded SARS-CoV-2 (COVID-19) mRNA BNT-162b2 vac 09/13/21 Recorded SARS-CoV-2 (COVID-19) mRNA BNT-162b2 vac 02/27/21 Given SARS-CoV-2 (COVID-19) mRNA BNT-162b2 vac 02/06/21 Given tetanus-diphtheria toxoids (Td) 11/23/20 Given tetanus/diphtheria/pertussis, acel(Tdap) 2 10/12/10 Given 1Admin Note: VIS given 05/30/10, [place] form 2Admin Note: VIS given, 08/2008, [place] form Medications amLODIPine 5 mg oral tablet 5 mg, 1, tablet, By Mouth, Daily, # 90 tablet, Refills 3, Tot. Refills 3, Maintenance, 11/01/22 9:44:00 EST, [id number], Partial fill upon patient request ifthe prescription is for a schedule II opioid drug.,... Start Date: 11/01/22 Status: Ordered Artificial Tears preserved solution 1 drops, Eyes, Both, 2 times a day, PRN for dry eyes, # 30 mL, 2 Refills, Maintenance, 02/04/23 9:35:00 EDT, Solution, [facility]/pharmacy #[id number], Partial fill upon patient request if the prescription is fora schedule II opioid drug., 1 drops Eyes, Both 2 ti... Start Date: 02/04/23 Status: Ordered Ativan 0.5 mg oral tablet 1 tablet = 0.5 mg, By Mouth, Once, indian label, take 30 mins to 1 hr before flight, # 2 tablet, 0Refills, Soft Stop, 10/08/22 17:54:00 EST, Tablet, [id number], Partial fill upon patient request if the prescription is for a schedule II opioi... Start Date: 10/08/22 Status: Ordered atorvastatin 40 mg oral tablet 1 tablet = 40 mg, By Mouth, Daily, # 30 tablet, 5 Refills, Maintenance, 12/19/22 14:49:00 EST, Tablet, [facility], Partial fill upon patient request if the prescription is for a schedule II opioid drug., 162.56, cm, 12/19/22 14:01:00 E... Start Date: 12/19/22 Status: Ordered azelastine 137 mcg/inh (0.1%) nasal spray 0 Refills, Maintenance, 12/07/21 11:16:00 EST, via Dr Glover, yardage estimator Start Date: 12/07/21 Status: Ordered baclofen 10 mg oral tablet See Instructions, TOME JOAN TABLETA POR VIA ORAL KARLA VECES AL MONICA, # 63 tablet, Refills 0, Instructions Replace Required Details, Route to Pharmacy Electronically, [id number], 157.5, cm, 04/10/22 10:29:00 EDT, Height, 75, [...] 2 times a day, Print instructions in indian use only for toenails, # 60 mL, 1 Refills, Maintenance, 01/18/23 10:15:00 EDT, Suspension, [facility]/pharmacy #[id number], Partial fill uponpatient request if the prescription is for a sched... Start Date: 01/18/23 Status: Ordered [facility] LUBRICANT EYE DROPS Maintenance, 12/07/21 11:16:00 EST, via Dr Glover, yardage estimator, Supply Start Date: 12/07/21 Status: Ordered diclofenac 1% topical gel 1 application, Topically, 4 times a day, # 100 Gm, 5 Refills, Maintenance, 12/07/22 11:37:00 EST, Gel, [facility]/pharmacy #[id number], Partial fill upon patient request if the prescription is for a schedule II opioid drug., 162.56, cm, 12/07/22 10:29:00 EST, [place]... Start Date: 12/07/22 Status: Ordered famotidine 40 mg oral tablet 1 tablet = 40 mg, By Mouth, 2 times a day, take 2x/day for 2 weeks then decrease to daily, # 60 tablet, 2 Refills, Maintenance, 06/24/22 12:04:00 EDT, Tablet, [facility]/pharmacy #[id number], Partial fill upon patient request if the prescription is for a schedule... Start Date: 06/24/22 Stop Date: 09/22/22 Status: Ordered Flomax 0.4 mg oral capsule 0.4 mg, 1, capsule, By Mouth, Daily, # 30 capsule, Refills 5, Tot. Refills 5, Maintenance, 11/07/2310:08:00 EST, Route to Pharmacy Electronically, [facility]/pharmacy #[id number], Partial fill upon patient request if [...] 1 application, Topically, Daily, Print instructions in indian Use only on feet, # 60 Gm, [...] Maintenance, 12/07/21 11:16:00 EST, via Dr Glover, yardage estimator, Supply Start Date: 12/07/21 Status: Ordered minoxidil [...] 5 Refills, Maintenance, 12/07/22 11:36:00 EST, Suspension, [facility]/pharmacy #[id number], Partial fill upon patient request if the prescription is for a schedule II opioid drug., 5 mL By M... Start Date: 12/07/22 Status: Ordered NeilMed Sinus Rinse Kit nasal powder for reconstitution See Instructions, Use as instructed on box, # 1 kit, 0 Refills, Maintenance, 02/28/23 7:36:00 EDT, [id number], Partial fill upon patient request if the prescription is for a schedule II opioid drug., Use as instructed on jodi, 158, cm, 02/20/23... Start Date: 02/28/23 Status: Ordered NuLYTELY with Flavor Packs oral powder for reconstitution See Instructions, per GI office, # 4,000 mL, 0 Refills, Maintenance, 06/11/22 9:43:00 EDT, [id number], Partial fill upon patient request if the prescription is for a schedule II opioid drug.,per GI office, 157.5, cm, 04/10/22 10:29:00 EDT, He... Start Date: 06/11/22 Status: Ordered Calhoun-3 1000 mg oral capsule via psychiatry, 0 Refills, Maintenance, 12/07/21 11:13:00 EST, Partial fill upon patient request ifthe prescription is for a schedule II opioid drug. Start Date: 12/07/21 Status: Ordered omeprazole 40 mg oral enteric coated capsule See Instructions, JUAN RAMON WEBB VECES AL MONICA, # 180 capsule, 1 Refills, Maintenance, 02/25/23 7:44:00 EDT, [id number], 158, cm, 02/20/23 9:30:00 EDT, Height, 76.5, kg, 06/12/22 13:23:00 EDT, Dry Weight Start Date: 02/25/23 Status: Ordered Lynette-Colace 50 mg-8.6 mg oral tablet 2 tablet, By Mouth, Daily at bedtime, PRN Constipation, For constipation, # 60 tablet, 0 Refills, Maintenance, 01/02/22 20:52:00 EDT, Tablet, [facility]/pharmacy #[id number], Partial fill upon patient request if the prescription is for a schedule II opioid drug. L... Start Date: 01/02/22 Status: Ordered Physical Therapy For lower back. Physical Therapy For lower back., See Instructions, # 1 each, Refills 0, Tot. Refills 0, Maintenance, Diagnosis: Low back pain. Tx: 2-3 times a week for 1 month., 02/20/23 10:16:00 EDT, Supply Start Date: 02/20/23 Status: Ordered QUEtiapine 50 mg oral tablet [...] 11 Refills, Maintenance, 01/14/23 15:27:00 EDT, Tablet, [facility]/pharmacy #[id number], label in Sri [place]ankan, 162.56,cm, 01/14/23 15:01:00 EDT, Height, 76.5, kg, [...] mL, 4 Refills, Maintenance, 02/28/22 16:09:00 EDT, [place], [id number], Partial fill upon patient request if the prescription is for a schedule II opioid drug., 1 sprays N... Start Date: 02/28/22 Status: Ordered Tears Naturale Forte preserved ophthalmic solution 1 drops, Eyes, Both, 2 times a day, PRN for dry eyes, # 30 mL, 0 Refills, Maintenance, 11/30/22 11:37:00 EST, Solution, [id number], Partial fill upon patient request if the [...] Dyspepsia Confirmed Active Disc displacement Confirmed Active Obese class I Confirmed Active Onychomycosis Confirmed Active *[facility]/CC-Patricia [phone]/[facility], Active Care Coordination Confirmed Active Nasal septum perforation, h/o cocaine Confirmed Active Prediabetes Confirmed Active Muscle spasm Confirmed Active Tubular adenoma of colon - due 2021 2 Confirmed 11/2015 Active 1, gross 2-2014, had cystoscopy 2014 Social History Social History Type Response Smoking Status Never smoker entered on: 08/23/16 Sex Patient Care team information Care Team Personnel Name: Trenton Eastman MD Position: [facility] Resident Member Role: PCP Address: Address: [address] [place] [id number]- Care Team Related Persons Name: AJAY BE Address: [place] [address] Name: KAMALJIT FUCHS Address: home [address] [place] [address] [place] [id number]
--- OUTSIDE RECORDS SUMMARY | 2023-06-10 06:22 | XMS_ITS | Continuity of Care Document ---
Author Name Unknown Organization [facility] Address [address] [place] [address]- Care Team Providers Care Director Of Quality Control Name Role Phone Trenton Eastman MD Primary Care Physician Encounter [facility] Date(s): 12/05/22 - 01/04/23 [facility] [address] [place] [id number] Allergies, Adverse Reactions, Alerts Substance [...] inactivated 1 10/12/10 Gi jocy SARS-CoV-2 mRNA ([id number]) vax 06/13/22 Recorded SARS-CoV-2 (COVID-19) mRNA BNT-162b2 vac 09/13/21 Recorded SARS-CoV-2 (COVID-19) mRNA BNT-162b2 vac 02/27/21 Given SARS-CoV-2 (COVID-19) mRNA BNT-162b2 vac 02/06/21 Given tetanus-diphtheria toxoids (Td) 11/23/20 Given tetanus/diphtheria/pertussis, acel(Tdap) 2 10/12/10 Given 1Admin Note: VIS given 05/30/10, Ukrainian form 2Admin Note: VIS given, 08/2008, Ukrainian form Medications amLODIPine 5 mg oral tablet 5 mg, 1, tablet, By Mouth, Daily, # 90 tablet, Refills 3, Tot. Refills 3, Maintenance, 11/01/22 9:44:00 EST, [id number] Partial fill upon patient request ifthe prescription is for a schedule II opioid drug.,... Start Date: 11/01/22 Status: Ordered Artificial Tears preserved solution 1 drops, Eyes, Both, 2 times a day, PRN for dry eyes, # 30 mL, 0 Refills, Maintenance, 11/29/22 17:50:00 EST, Solution, [facility]/pharmacy #[id number], Partial fill upon patient request if the prescription is for a schedule II opioid drug., 1 drops Eyes, Both 2 t... Start Date: 11/29/22 Status: Ordered Ativan 0.5 mg oral tablet 1 tablet = 0.5 mg, By Mouth, Once, cypriot label, take 30 mins to 1 hr before flight, # 2 tablet, 0Refills, Soft Stop, 10/08/22 17:54:00 EST, [id number] Partial fill upon patient request if the prescription is for a schedule II opioi... Start Date: 10/08/22 Status: Ordered atorvastatin 40 mg oral tablet 1 tablet = 40 mg, By Mouth, Daily, # 30 tablet, 5 Refills, Maintenance, 12/19/22 14:49:00 EST, Tablet, [facility], Partial fill upon patient request if the prescription is for a schedule II opioid drug., 162.56, cm, 12/19/22 14:01:00 E... Start Date: 12/19/22 Status: Ordered azelastine 137 mcg/inh (0.1%) nasal spray 0 Refills, Maintenance, 12/07/21 11:16:00 EST, via Dr Glover, accountant tax Start Date: 12/07/21 Status: Ordered baclofen 10 mg oral tablet See Instructions, JUAN RAMON JOAN TABLETA POR VIA ORAL KARLA VECES AL MONICA, # 63 tablet, Refills 0, Instructions Replace Required Details, Route to Pharmacy Electronically, [id number], 157.5, cm, 04/10/22 10:29:00 EDT, Height, 75, [...] 2 times a day, Print instructions in cypriot, # 60 mL, 1 Refills, Maintenance, 07/11/22 11:00:00 EDT, Suspension, [facility]/pharmacy #[id number], Partial fill upon patient request if the prescription is for a schedule II opioid drug., 1... Start Date: 07/11/22 Status: Ordered [facility] LUBRICANT EYE DROPS Maintenance, 12/07/21 11:16:00 EST, via Dr Glover, accountant tax, Supply Start Date: 12/07/21 Status: Ordered diclofenac 1% topical gel 1 application, Topically, 4 times a day, # 100 Gm, 5 Refills, Maintenance, 12/07/22 11:37:00 EST, Gel, [facility]/pharmacy #[id number], Partial fill upon patient request if the prescription is for a schedule II opioid drug., 162.56, cm, 12/07/22 10:29:00 EST, [place]... Start Date: 12/07/22 Status: Ordered famotidine 40 mg oral tablet 1 tablet = 40 mg, By Mouth, 2 times a day, take 2x/day for 2 weeks then decrease to daily, # 60 tablet, 2 Refills, Maintenance, 06/24/22 12:04:00 EDT, Tablet, [facility]/pharmacy #[id number], Partial fill upon patient request if the prescription is for a schedule... Start Date: 06/24/22 Stop Date: 09/22/22 Status: Ordered Flomax 0.4 mg oral capsule 0.4 mg, 1, capsule, By Mouth, Daily, # 30 capsule, Refills 5, Tot. Refills 5, Maintenance, 11/07/2310:08:00 EST, Route to Pharmacy Electronically, [facility]/pharmacy #[id number], Partial fill upon patient request if the prescription is for a schedule II opioid d... Start Date: 11/07/22 Status: Ordered loratadine 10 mg oral tablet 10 mg, 1, tablet, By Mouth, Daily, # 30 tablet, Refills 5, Tot. Refills 5, Maintenance, 12/18/21 10:54:00 EST, Route to Pharmacy Electronically, [facility]/pharmacy #[id number], Partial fill upon patient request if the prescription is for a schedule II opioid drug... Start Date: 12/18/21 Status: Ordered LUBRICNT EYE JESSICA 0.4-0.3% Maintenance, 12/07/21 11:16:00 EST, via Dr Glover, accountant tax, Supply Start Date: 12/07/21 Status: Ordered minoxidil 2% topical solution 1 mL = 0.02 Gm, Topically, 2 times a day, # 60 mL, 2 Refills, Maintenance, 02/28/22 16:27:00 EDT, Solution, [facility]/pharmacy #[id number], Partial fill upon patient request [...] EDT, He... Start Date: 06/11/22 Status: Ordered Manvel-3 1000 mg oral capsule via psychiatry, 0 Refills, Maintenance, 12/07/21 11:13:00 EST, Partial fill upon patient request ifthe prescription is for a schedule II opioid drug. Start Date: 12/07/21 Status: Ordered omeprazole 40 mg oral enteric coated capsule See Instructions, JUAN RAMON JOAN RUBENSA DOS VECES AL MONICA, # 180 capsule, 1 Refills, Maintenance, 09/05/22 10:55:00 EST, [id number], 162.56, cm, 07/12/22 10:42:00 EDT, Height, 76.5, [...] mL, 0 Refills, Maintenance, 11/30/22 11:37:00 EST, [id number], Partial fill upon patient request if the prescription is for a schedule II opioid drug., 2 sprays Nares, Both 4 times a day, 162.56, cm,... Start Date: 11/30/22 Status: Ordered Simply Saline 0.9% spray 1 sprays, Nares, Both, Every 30 minutes, PRN for dry nasal passages, # 45 mL, 4 Refills, Maintenance, 02/28/22 16:09:00 EDT, [place], [id number], Partial fill upon patient request if the prescription is for a schedule II opioid drug., 1 sprays N... Start Date: 02/28/22 Status: Ordered Tears Naturale Forte preserved ophthalmic solution 1 drops, Eyes, Both, 2 times a day, PRN for dry eyes, # 30 mL, 0 Refills, Maintenance, 11/30/22 11:37:00 EST, Solution, [id number], Partial fill upon patient request if the [...] displacement Confirmed Active Onychomycosis Confirmed Active *N/[facility]/CC-Patricia [phone]/He alth [facility], Active Care Coordination Confirmed Active Nasal septum perforation, h/o cocaine Confirmed Active Muscle spasm Confirmed Active Tubular adenoma of colon - due 2021 2 Confirmed 11/2015 Active 1, gross 2-2014, had cystoscopy 2014 Social History Social History Type Response Smoking Status Never smoker entered on: 08/23/16 Sex Patient Care team information Care Team Personnel Name: Raiza KRISHNA, Trenton Position: [facility] Resident Member Role: PCP Address: Address: [address] [place] [address] [place] [address]- Care Team Related Persons Name: AJAY BE Address: [place] [address] Name: KAMALJIT FUCHS Address: home [address] [place] [address] [place] [id number]
--- OUTSIDE RECORDS SUMMARY | 2023-06-10 06:22 | XMS_ITS | Continuity of Care Document ---
Author Name Unknown Organization [facility] Address [address] [place] [address]- Care Team Providers Care Inventory Worker Name Role Phone Raiza KRISHNA, [place]on Primary Care Physician Encounter [facility] Date(s): 03/21/22 - 04/20/22 [facility] [address] [place] [id number] Allergies, Adverse Reactions, Alerts Substance Reaction [...] VIS given, 08/2008, Prydeinig form Medications amLODIPine 2.5 mg oral tablet 2.5 mg, 1, tablet, By Mouth, Daily, ; STOP amlodipine 5 mg. use this dose instead., # 30 tablet, Refills 5, Tot. Refills 5, Maintenance, 11/17/21 16:52:00 EST, Route to Pharmacy Electronically,[facility]/pharmacy #[id number], label all scripts in KYRGYZ, 1... Start Date: 11/17/21 Stop Date: 05/16/22 Status: Ordered azelastine 0.05% ophthalmic solution 1 drops, Eyes, Both, 2 times a day, PRN for allergy symptoms, For eye allergies, # 6 mL, 6 Refills,Maintenance, 02/28/22 16:27:00 EDT, [facility]/pharmacy #[id number], Label in Prydeinig, 1 drops Eyes, Both 2 times a day,PRN:for allergy symptoms,Instr:For eye aller... Start Date: 02/28/22 Status: Ordered azelastine 137 mcg/inh (0.1%) nasal spray 0 Refills, Maintenance, 12/07/21 11:16:00 EST, via Dr Glover, combine mechanic Start Date: 12/07/21 Status: Ordered baclofen 10 mg oral tablet See Instructions, JUAN RAMON FRANCO TABLETA POR VIA ORAL KARLA VECES AL MONICA, # 63 tablet, Refills 0, Instructions Replace Required Details, Route to Pharmacy Electronically, [id number], 157.5, cm, 04/10/22 10:29:00 EDT, Height, 75, [...] 1 Refills, Maintenance, 08/28/21 14:44:00 EST, Solution, [facility]/pharmacy #[id number], Partial fill upon patient request if the prescription is for... Start Date: 08/28/21 Status: Ordered Crutches See Instructions, # 1 kit, Maintenance, use for 2 weeks dx: leg injury, 03/27/22 10:10:00 EDT, Supply, 157.5, cm, 03/27/22 9:45:00 EDT, Height, 75, kg, 03/25/22 2:00:00 EDT, Dry Weight Start Date: 03/27/22 Status: Ordered [facility] LUBRICANT EYE DROPS Maintenance, 12/07/21 11:16:00 EST, via Dr Glover, combine mechanic, Supply Start Date: 12/07/21 Status: Ordered cyclobenzaprine 5 mg oral tablet 0 Refills, Maintenance, 09/28/21 13:55:00 EST, Partial fill upon patient request if the prescription is for a schedule II opioid drug. Start Date: 09/28/21 Status: Ordered diclofenac 3% topical gel 1 application, Topically, 2 times a day, # 100 Gm, 0 Refills, Maintenance, 04/28/21 17:22:00 EDT, Gel, [facility]/pharmacy #[id number], Partial fill upon patient request if the prescription is for a schedule II opioid drug., 1 application Topically 2 times a day,... Start Date: 04/28/21 Status: Ordered Flonase 50 mcg/inh nasal spray 1 sprays, Nares, Both, Daily, # 16 Gm, 1 Refills, Maintenance, 11/30/21 10:55:00 EST, [place], [facility]/pharmacy #[id number], 1 sprays Nares, Both Daily, 159, [...] 12/18/21 10:54:00 EST, Route to Pharmacy Electronically, [facility]/pharmacy #[id number], Partial fill upon patient request if the prescription is for a schedule II opioid drug... Start Date: 12/18/21 Status: Ordered LUBRICNT EYE JESSICA 0.4-0.3% Maintenance, 12/07/21 11:16:00 EST, via Dr Glover, combine mechanic, Supply Start Date: 12/07/21 Status: Ordered minoxidil 2% topical solution 1 mL = 0.02 Gm, Topically, 2 times a day, # 60 mL, 2 Refills, Maintenance, 02/28/22 16:27:00 EDT, Solution, [facility]/pharmacy #[id number], Partial fill upon patient request if [...] Refills, Maintenance, 09/21/21 9:33:00 EST, REC Powder, [facility], Partial fill upon patient request if the prescription is for a schedule II opioid drug., 240 mL By Mouth Every 10 minut... Start Date: 09/21/21 Status: Ordered Charlotte-3 1000 mg oral capsule via psychiatry, 0 [...] 0 Refills, Maintenance, 01/02/22 20:52:00 EDT, Tablet, [facility]/pharmacy #[id number], Partial fill upon patient request if [...] mL, 4 Refills, Maintenance, 02/28/22 16:09:00 EDT, [place], [facility]/pharmacy #[id number], Partial fill upon patient request if the prescription is for a schedule II opioid drug., 1 sprays N... Start Date: 02/28/22 Status: Ordered tamsulosin 0.4 mg oral capsule 0.4 mg, 1, capsule, By Mouth, Daily, at night (print label in kinyarwanda), # 30 capsule, Refills 1, Tot. Refills 1, Maintenance, 09/28/21 14:03:00 EST, Route to Pharmacy Electronically, [facility], Partial fill upon patient request if the... Start Date: 09/28/21 Status: Ordered Tears Naturale Forte preserved ophthalmic solution 1 drops, Eyes, Both, 2 times a day, PRN for dry eyes, # 30 mL, 0 Refills, Maintenance, 08/28/21 14:52:00 EST, Solution, [facility]/pharmacy #[id number], Partial fill upon patient request if the prescription is for a schedule II opioid drug., 1 drops Eyes, Both 2 t... Start Date: 08/28/21 Status: Ordered tiZANidine 2 mg oral capsule 1 capsule = 2 mg, By Mouth, 3 times a day, PRN as needed for muscle spasm, # 9 capsule, 0 Refills, Maintenance, 04/28/21 17:18:00 EDT, Capsule, [id number], kinyarwanda labeling, 159, cm, 04/28/2115:46:00 EDT, Height, 78, kg, 01/01/21 16:06:00 EDT... Start Date: 04/28/21 Stop Date: 05/01/21 Status: Ordered Tums 500 mg oral tablet, chewable 500 mg, 1, tablet, Chew, 2 times a day, # 60 tablet, Refills 5, Tot. Refills 5, Maintenance, 12/16/20 14:32:00 EST, Route to Pharmacy Electronically, [facility]/pharmacy #[id number], 159, cm, 12/16/20 13:47:00 EST, Height, [...] class I(Confirmed) Active Onychomycosis(Confirmed) Active *N/[facility]/CC-Patricia [phone]/[facility], Active Care Coordination(Confirmed) Active Nasal septum perforation, h/ o cocaine(Confirmed) Active Muscle spasm(Confirmed) Active Tubular adenoma of colon - d ue 2021(Confirmed) 2 11/2015 Active 1, gross 2-2014, had cystoscopy 2014 Social History Social History Type Response Smoking Status Never smoker entered on: 08/23/16 Sex
--- OUTSIDE RECORDS SUMMARY | 2023-06-10 06:22 | XMS_ITS | Continuity of Care Document ---
Author Name Unknown Organization [facility] Address [address] [place] [address]- Care Team Providers Care Blanking Machine Operator Name Role Phone aRiza KRISHNA, [place] Primary Care Physician [phone] Encounter [facility] Date(s): 02/01/23 - 03/03/23 [facility] [address] [place] [id number] Allergies, Adverse Reactions, Alerts Substance Reaction [...] inactivated 1 10/12/10 Gi jocy SARS-CoV-2 mRNA ([id number]-exlj-[id number]) vax 06/13/22 Recorded SARS-CoV-2 (COVID-19) mRNA BNT-162b2 vac 09/13/21 Recorded SARS-CoV-2 (COVID-19) mRNA BNT-162b2 vac 02/27/21 Given SARS-CoV-2 (COVID-19) mRNA BNT-162b2 vac 02/06/21 Given tetanus-diphtheria toxoids (Td) 11/23/20 Given tetanus/diphtheria/pertussis, acel(Tdap) 2 10/12/10 Given 1Admin Note: VIS given 05/30/10, Hong Konger form 2Admin Note: VIS given, 08/2008, Hong Konger form Medications amLODIPine 5 mg oral tablet 5 mg, 1, tablet, By Mouth, Daily, # 90 tablet, Refills 3, Tot. Refills 3, Maintenance, 11/01/22 9:44:00 EST, [id number] fill upon patient request ifthe prescription is for a schedule II opioid drug.,... Start Date: 11/01/22 Status: Ordered Artificial Tears preserved solution 1 drops, Eyes, Both, 2 times a day, PRN for dry eyes, # 30 mL, 2 Refills, Maintenance, 02/04/23 9:35:00 EDT, Solution, [facility]/pharmacy #[id number], Partial fill upon patient request if the prescription is fora schedule II opioid drug., 1 drops Eyes, Both 2 ti... Start Date: 02/04/23 Status: Ordered Ativan 0.5 mg oral tablet 1 tablet = 0.5 mg, By Mouth, Once, algerian label, take 30 mins to 1 hr before flight, # 2 tablet, 0Refills, Soft Stop, 10/08/22 17:54:00 EST, Tablet, [id number] Partial fill upon patient request if the prescription is for a schedule II opioi... Start Date: 10/08/22 Status: Ordered atorvastatin 40 mg oral tablet 1 tablet = 40 mg, By Mouth, Daily, # 30 tablet, 5 Refills, Maintenance, 12/19/22 14:49:00 EST, Tablet, [facility], Partial fill upon patient request if the prescription is for a schedule II opioid drug., 162.56, cm, 12/19/22 14:01:00 E... Start Date: 12/19/22 Status: Ordered azelastine 137 mcg/inh (0.1%) nasal spray 0 Refills, Maintenance, 12/07/21 11:16:00 EST, via Dr Glover, recovery operator helper Start Date: 12/07/21 Status: Ordered baclofen 10 mg oral tablet See Instructions, TOME JOAN TABLETA POR VIA ORAL KARLA VECES AL MONICA, # 63 tablet, Refills 0, Instructions Replace Required Details, Route to Pharmacy Electronically, [id number], 157.5, cm, 04/10/22 10:29:00 EDT, Height, 75, [...] 2 times a day, Print instructions in algerian use only for toenails, # 60 mL, 1 Refills, Maintenance, 01/18/23 10:15:00 EDT, Suspension, [facility]/pharmacy #[id number], Partial fill uponpatient request if the prescription is for a sched... Start Date: 01/18/23 Status: Ordered [facility] LUBRICANT EYE DROPS Maintenance, 12/07/21 11:16:00 EST, via Dr Glover, recovery operator helper, Supply Start Date: 12/07/21 Status: Ordered diclofenac 1% topical gel 1 application, Topically, 4 times a day, # 100 Gm, 5 Refills, Maintenance, 12/07/22 11:37:00 EST, Gel, [facility]/pharmacy #[id number], Partial fill upon patient [...] 2 Refills, Maintenance, 06/24/22 12:04:00 EDT, Tablet, [facility]/pharmacy #[id number], Partial fill upon patient request if the prescription is for a schedule... Start Date: 06/24/22 Stop Date: 09/22/22 Status: Ordered Flomax 0.4 mg oral capsule 0.4 mg, 1, capsule, By Mouth, Daily, # 30 capsule, Refills 5, Tot. Refills 5, Maintenance, 11/07/2310:08:00 EST, Route to Pharmacy Electronically, [facility]/pharmacy #[id number], Partial fill upon patient [...] 1 application, Topically, Daily, Print instructions in algerian Use only on feet, # 60 Gm, [...] Maintenance, 12/07/21 11:16:00 EST, via Dr Glover, recovery operator helper, Supply Start Date: 12/07/21 Status: Ordered minoxidil [...] 5 Refills, Maintenance, 12/07/22 11:36:00 EST, Suspension, [facility]/pharmacy #[id number], Partial fill upon patient [...] EDT, He... Start Date: 06/11/22 Status: Ordered [place]-3 1000 mg oral capsule via psychiatry, 0 Refills, Maintenance, 12/07/21 11:13:00 EST, Partial fill upon patient request ifthe prescription is for a schedule II opioid drug. Start Date: 12/07/21 Status: Ordered omeprazole 40 mg oral enteric coated capsule See Instructions, JUAN RAMON WEBB VECES AL MONICA, # 180 capsule, 1 Refills, Maintenance, 02/25/23 7:44:00 EDT, [id number], 158, cm, 02/20/23 9:30:00 EDT, Height, 76.5, kg, 06/12/22 13:23:00 EDT, Dry Weight Start Date: 02/25/23 Status: Ordered Lynette-Colace 50 mg-8.6 mg oral tablet 2 tablet, By Mouth, Daily at bedtime, PRN Constipation, For constipation, # 60 tablet, 0 Refills, Maintenance, 01/02/22 20:52:00 EDT, Tablet, [facility]/pharmacy #[id number], Partial fill upon patient [...] 11 Refills, Maintenance, 01/14/23 15:27:00 EDT, Tablet, [facility]/pharmacy #[id number], label in Hong Konger, 162.56,cm, 01/14/23 15:01:00 EDT, Height, 76.5, kg, [...] mL, 4 Refills, Maintenance, 02/28/22 16:09:00 EDT, [place], [id number], Partial fill upon patient request if the prescription is for a schedule II opioid drug., 1 sprays N... Start Date: 02/28/22 Status: Ordered Tears Naturale Forte preserved ophthalmic solution 1 drops, Eyes, Both, 2 times a day, PRN for dry eyes, # 30 mL, 0 Refills, Maintenance, 11/30/22 11:37:00 EST, [facility], [id number], Partial fill upon patient request if the [...] class I Confirmed Active Onychomycosis Confirmed Active *[facility]/CC-Patricia [phone]/[facility] alth [facility], Active Care Coordination Confirmed Active Nasal septum perforation, h/o cocaine Confirmed Active Prediabetes Confirmed Active Muscle spasm Confirmed Active Tubular adenoma of colon - due 2021 2 Confirmed 11/2015 Active 1, gross 2-2014, had cystoscopy 2014 Social History Social History Type Response Smoking Status Never smoker entered on: 08/23/16 Sex Patient Care team information Care Team Personnel Name: Trenton Eastman MD Position: [facility] Resident Member Role: PCP Address: Address: [address] [place] [id number]- Care Team Related Persons Name: AJAY [place] Address: [place] [address] Name: KAMALJIT FUCHS Address: home [address] [place] [address] [place] [id number]
--- OUTSIDE RECORDS SUMMARY | 2023-06-10 06:22 | XMS_ITS | Continuity of Care Document ---
Author Name Unknown Organization [facility] Address [address] [place] [address]- Care Team Providers Care Laboratory Director Name Role Phone Raiza KRISHNA, [place] Primary Care Physician Encounter [facility] Date(s): 06/06/21 - 07/12/[address] [address] Attending Physician: Heena Mazariegos MD Admitting Physician: Heena Mazariegos MD Referring Physician: Heena Mazariegos MD Allergies, Adverse Reactions, Alerts Substance Reaction [...] 10/12/10 Given 1Admin Note: VIS given 05/30/10, Indian form 2Admin Note: VIS given, 08/2008, Indian form Medications amLODIPine 2.5 mg oral tablet 2.5 mg, 1, tablet, By Mouth, Daily, ; STOP amlodipine 5 mg. use this dose instead., # 30 tablet, Refills 11, Tot. Refills 11, Maintenance, 11/22/20 16:52:00 EST, Route to Pharmacy Electronically, [facility]/pharmacy #[id number], label all scripts in [place],... Start Date: 11/22/20 Stop Date: 11/17/21 Status: Ordered azelastine 0.05% ophthalmic solution 1 drops, Eyes, Both, 2 times a day, PRN for allergy symptoms, # 6 mL, 6 Refills, Maintenance, 01/13/21 14:54:00 EDT, [facility]/pharmacy #[id number], Label in Indian, 1 drops Eyes, Both 2 times a day,PRN:for allergy symptoms, 159, cm, 01/04/21 9:23:00 EDT, Height... Start Date: 01/13/21 Status: Ordered diclofenac 3% topical gel 1 application, Topically, 2 times a day, # 100 Gm, 0 Refills, Maintenance, 04/28/21 17:22:00 EDT, Gel, [facility]/pharmacy #[id number], Partial fill upon patient request if the prescription is for a schedule II opioid drug., 1 application Topically 2 times a day,... Start Date: 04/28/21 Status: Ordered Flonase 50 mcg/inh nasal spray 1 sprays, Nares, Both, Daily, # 16 Gm, 1 Refills, Maintenance, 06/16/20 18:04:00 EDT, [place], [facility]/pharmacy #[id number], 159, cm, 06/08/20 13:31:00 EDT, Height Start Date: 06/16/20 Status: Ordered multivitamin Multiple Vitamins oral capsule 1 capsule, By Mouth, Daily, # 90 capsule, 1 Refills, Maintenance, 02/06/21 14:59:00 EDT, Capsule, [facility]/pharmacy #[id number], 1 capsule By Mouth Daily, 159, cm, 01/04/21 9:23:00 EDT, Height, 78, kg, 01/02/2116:06:00 EDT, Dry Weight Start Date: 02/06/21 Status: Ordered omeprazole 40 mg oral enteric coated capsule 1 capsule = 40 mg, By Mouth, 2 times a day, # 60 capsule, 2 Refills, Maintenance, 04/13/21 10:31:00EDT, EC Capsule, [facility]/pharmacy #[id number], Partial fill upon patient request [...] Refills, Maintenance, 04/28/21 17:18:00 EDT, Capsule, [facility]/pharmacy #[id number], filipino labeling, 159, cm, 04/28/2115:46:00 EDT, Height, 78, kg, 01/01/21 16:06:00 EDT... Start Date: 04/28/21 Stop Date: 05/01/21 Status: Ordered Tums 500 mg oral tablet, chewable 500 mg, 1, tablet, Chew, 2 times a day, # 60 tablet, Refills 5, Tot. Refills 5, Maintenance, 12/16/20 14:32:00 EST, Route to Pharmacy Electronically, [facility]/pharmacy #[id number], 159, cm, 12/16/20 13:47:00 EST, Height, 74.1, kg, 10/20/20 16:18:00 EST, Dry Weight Start Date: 12/16/20 Status: Ordered Problem List Condition Effective Dates Status Health Status Inform ant Hematuria(Confirmed) 1 Active Chronic back pain(Confirmed) Active Dyslipidemia(Confirmed) Active h/o allergic rhinitis(Confirmed) Active Illiteracy(Confirmed) Active Dyspepsia(Confirmed) Active Disc displacement(Confirmed) Active Onychomycosis(Confirmed) Active [facility]/CC-Serena Purcell-[phone]/[facility], Active Care Coordination(Confirmed) Active Muscle spasm(Confirmed) Active Tubular adenoma of colon - d ue 2021(Confirmed) 2 11/2015 Active 1lul 2-2014, had cystoscopy 2014 Social History Social History Type Response Smoking Status Never smoker entered on: 08/23/16 Sex
--- OUTSIDE RECORDS SUMMARY | 2023-06-10 06:22 | XMS_ITS | Continuity of Care Document ---
Author Name Unknown Organization [facility] Address [address] [place] [address]- Care Team Providers Care Manager Instrumentation Name Role Phone Raiza KRISHNA, Trenton Primary Care Physician [phone] Encounter [facility] Date(s): 08/24/21 - 09/23/21 [facility] [address], [place] [address] Allergies, Adverse Reactions, Alerts Substance Reaction Severity Status penicillins Active Immunizations Given and Recorded Vaccine Date Status Refusal Reason influenza virus vaccine, inactivated 07/20/21 Inocente rded influenza virus vaccine, inactivated 07/27/20 Give n influenza virus vaccine, inactivated 12/21/19 Give n influenza virus vaccine, inactivated 07/15/19 Give n influenza virus vaccine, inactivated 08/17/18 Inocente rded influenza virus vaccine, inactivated 11/12/17 Inocente rded influenza virus vaccine, inactivated 1 10/12/10 Gi jocy SARS-CoV-2 (COVID-19) mRNA BNT-162b2 vac 02/27/21 Given SARS-CoV-2 (COVID-19) mRNA BNT-162b2 vac 02/06/21 Given tetanus-diphtheria toxoids (Td) 11/23/20 Given tetanus/diphtheria/pertussis, acel(Tdap) 2 10/12/10 Given 1Admin Note: VIS given 05/30/10, Palestinian form 2Admin Note: VIS given, 08/2008, Palestinian form Medications amLODIPine 2.5 mg oral tablet 2.5 mg, 1, tablet, By Mouth, Daily, ; STOP amlodipine 5 mg. use this dose instead., # 30 tablet, Refills 11, Tot. Refills 11, Maintenance, 11/22/20 16:52:00 EST, Route to Pharmacy Electronically, [facility]/pharmacy #[id number], label all scripts in LITHUANIAN,... Start Date: 11/22/20 Stop Date: 11/17/21 Status: Ordered azelastine 0.05% ophthalmic solution 1 drops, Eyes, Both, 2 times a day, PRN for allergy symptoms, # 6 mL, 6 Refills, Maintenance, 01/13/21 14:54:00 EDT, [id number], Label in Palestinian, 1 drops Eyes, Both 2 times a day,PRN:for allergy symptoms, 159, cm, 01/04/21 9:23:00 EDT, Height... Start Date: 01/13/21 Status: Ordered ciclopirox 8% topical solution 1 application, Topically, Daily, Apply topically to affected toenails daily until infection is cleared, # 6.6 mL, 1 Refills, Maintenance, 08/28/21 14:44:00 EST, Solution, [id number], Partial fill upon patient request if the prescription is for... Start Date: 08/28/21 Status: Ordered dextromethorphan-guaifenesin 10 mg-100 mg/10 mL oral liquid 10 mL, By Mouth, Every 4 hours, PRN as needed for cough, for 14 days, not to exceed 6 doses/day, # 118 mL, 0 Refills, Acute 10/03/21 9:49:00 EST, 09/19/21 9:49:00 EST, Liquid, [id number], Partial fill upon patient request if the prescription i... Start Date: 09/19/21 Stop Date: 10/03/21 Status: Ordered diclofenac 3% topical gel 1 [...] Gm, 1 Refills, Maintenance, 06/16/20 18:04:00 EDT, [place], [id number], 159, cm, 06/08/20 13:31:00 EDT, Height Start Date: 06/16/20 Status: Ordered multivitamin Multiple Vitamins oral capsule 1 capsule, By Mouth, Daily, # 90 capsule, 1 Refills, Maintenance, 02/06/21 14:59:00 EDT, Capsule, [facility]/pharmacy #[id number], 1 capsule By Mouth Daily, 159, cm, 01/04/21 9:23:00 EDT, Height, 78, kg, 01/02/2116:06:00 EDT, Dry Weight Start Date: 02/06/21 Status: Ordered NuLYTELY with Flavor Packs oral powder for reconstitution 240 mL, By Mouth, Every 10 minutes, # 1 each, 0 Refills, Maintenance, 09/21/21 9:33:00 EST, REC Powder, [facility], Partial fill upon patient request if the prescription is for a schedule II opioid drug., 240 mL By Mouth Every 10 minut... Start Date: 09/21/21 Status: Ordered omeprazole 40 mg oral enteric coated capsule 1 capsule = 40 mg, By Mouth, 2 times a day, # 60 capsule, 2 Refills, Maintenance, 04/13/21 10:31:00EDT, EC Capsule, [facility]/pharmacy #[id number], Partial fill upon patient request if [...] MOOD STABILIZATION Start Date: 12/16/20 Status: Ordered tamsulosin 0.4 mg oral capsule 0.4 mg, 1, capsule, By Mouth, Daily, at night (print label in panamanian), # 30 capsule, Refills 1, Tot. Refills 1, Maintenance, 09/13/21 18:28:00 EST, Route to Pharmacy Electronically, [facility]/pharmacy #[id number], Partial fill upon patient request if the prescri... Start Date: 09/13/21 Status: Ordered Tears Naturale Forte preserved ophthalmic solution 1 drops, Eyes, Both, 2 times a day, PRN for dry eyes, # 30 mL, 0 Refills, Maintenance, 08/28/21 14:52:00 EST, Solution, [facility]/pharmacy #[id number], Partial fill upon patient request if the prescription is for a schedule II opioid drug., 1 drops Eyes, Both 2 t... Start Date: 08/28/21 Status: Ordered tiZANidine 2 mg oral capsule 1 capsule = 2 mg, By Mouth, 3 times a day, PRN as needed for muscle spasm, # 9 capsule, 0 Refills, Maintenance, 04/28/21 17:18:00 EDT, Capsule, [facility]/pharmacy #[id number], panamanian labeling, 159, cm, 04/28/2115:46:00 EDT, Height, 78, kg, 01/01/21 16:06:00 EDT... Start Date: 04/28/21 Stop Date: 05/01/21 Status: Ordered Tums 500 mg oral tablet, chewable 500 mg, 1, tablet, Chew, 2 times a day, # 60 tablet, Refills 5, Tot. Refills 5, Maintenance, 12/16/20 14:32:00 EST, Route to Pharmacy Electronically, [facility]/pharmacy #[id number], 159, cm, 12/16/20 13:47:00 EST, Height, 74.1, kg, 10/20/20 16:18:00 EST, Dry Weight Start Date: 12/16/20 Status: Ordered Problem List Condition Effective Dates Status Health Status Inform ant Hematuria(Confirmed) 1 Active Chronic back pain(Confirmed) Active Dyslipidemia(Confirmed) Active h/o allergic rhinitis(Confirmed) Active Illiteracy(Confirmed) Active Dyspepsia(Confirmed) Active Disc displacement(Confirmed) Active Onychomycosis(Confirmed) Active *[facility]/CCValerie [phone]/[facility], Active Care Coordination(Confirmed) Active Muscle spasm(Confirmed) Active Tubular adenoma of colon - d ue 2021(Confirmed) 2 11/2015 Active 1, gross 2-2014, had cystoscopy 2014 Social History Social History Type Response Smoking Status Never smoker entered on: 08/23/16 Sex
--- OUTSIDE RECORDS SUMMARY | 2023-06-10 06:22 | XMS_ITS | Continuity of Care Document ---
Author Name Unknown Organization [facility] Address [address] [place] [address]- Care Team Providers Care Sales Operations Director Name Role Phone Bebe KRISHNA, Hugh Primary Care Physician [phone] Encounter [facility] Date(s): 10/20/20 - 11/19/20 [facility] [address] [place], [place] [address] Allergies, Adverse Reactions, Alerts Substance Reaction Severity Status penicillins Active Immunizations Given and Recorded Vaccine Date Status Refusal Reason influenza virus vaccine, inactivated 07/27/20 Give n influenza virus vaccine, inactivated 12/21/19 Give n influenza virus vaccine, inactivated 07/15/19 Give n influenza virus vaccine, inactivated 1 10/12/10 Gi jocy tetanus/diphtheria/pertussis, acel(Tdap) 2 10/12/10 Given 1Admin Note: VIS given 05/30/10, Kazakh form 2Admin Note: VIS given, 08/2008, Kazakh form Medications amLODIPine 5 mg oral tablet 5 mg, 1, tablet, By Mouth, Daily, # 90 tablet, Refills 10, Tot. Refills 10, Maintenance, 06/08/20 15:00:00 EDT, Route to Pharmacy Electronically, [facility]/pharmacy #[id number], 159, cm, 06/08/20 13:31:00 EDT, Height Start Date: 06/08/20 Stop Date: 02/23/23 Status: Ordered Artificial Tears preserved solution 1 drops, Eyes, Both, 2 times a day, PRN for dry eyes, # 10 mL, 0 Refills, Maintenance, 10/19/19 14:27:00 EST, [facility] 1 drops Eyes, Both 2 times a day,PRN:for dry eyes, 159, cm, 10/19/19 13:35:00 EST, Height Start Date: 10/19/19 Status: Ordered Flonase 50 mcg/inh nasal spray 1 sprays, Nares, Both, Daily, # 16 Gm, 1 Refills, Maintenance, 06/16/20 18:04:00 EDT, [place], [facility]/pharmacy #[id number], 159, cm, 06/08/20 13:31:00 EDT, Height Start Date: 06/16/20 Status: Ordered multivitamin Multiple Vitamins oral capsule 1 capsule, By Mouth, Daily, # 90 capsule, 11 Refills, Maintenance, 08/12/20 11:32:00 EDT, Capsule, [facility]/pharmacy #[id number], 1 capsule By Mouth Daily, 159, cm, 07/27/20 13:20:00 EDT, Height Start Date: 08/12/20 Status: Ordered Mylanta Maximum Strength oral suspension 20 mL, By Mouth, 4 times a day, between meals and at bedtime, # 240 mL, 1 Refills, Maintenance, 10/19/19 14:27:00 EST, Suspension, [facility], 20 mL By Mouth 4 times a day,Instr:between meals and at bedtime, 159, cm, 10/19/19 13:35:00... Start Date: 10/19/19 Status: Ordered omeprazole 40 mg oral enteric coated capsule 1 capsule = 40 mg, By Mouth, 2 times a day, # 60 capsule, 4 Refills, Maintenance, 10/05/20 14:48:00EST, EC Capsule, [facility]/pharmacy #[id number], Partial fill upon patient request if the prescription is for aschedule II opioid drug., 159, cm, 07/27/20 13:20:0... Start Date: 10/05/20 Stop Date: 03/04/21 Status: Ordered prazosin 2 mg oral capsule via [facility], 0 Refills, Maintenance, 11/04/19 14:42:00 EST Start Date: 11/04/19 Status: Ordered QUEtiapine 100 mg oral tablet TAKE 1 TABLET BY MOUTH EVERY MORNING FOR PSYCHOSIS AND MOOD IMPROVEMENT Start Date: 09/12/20 Status: Ordered sucralfate 1 gm oral tablet 1 Gm, 1, tablet, By Mouth, 2 times a day, # 14 tablet, Refills 0, Tot. Refills 0, Maintenance, 10/20/20 18:51:00 EST, Route to Pharmacy Electronically, [facility]/pharmacy #[id number], Partial fill upon patient request if the prescription is for a schedule II opio... Start Date: 10/20/20 Stop Date: 10/27/20 Status: Ordered Tums 500 mg oral tablet, chewable 500 mg, 1, tablet, Chew, 2 times a day, # 60 tablet, Refills 3, Tot. Refills 3, Maintenance, 01/14/20 11:08:00 EDT, Route to Pharmacy Electronically, [facility], 159, cm, 12/21/19 13:52:00 EST, Height Start Date: 01/14/20 Status: Ordered Tylenol 8 HR Arthritis Pain 650 mg oral tablet, extended release 1 tablet = 650 mg, By Mouth, Every 8 hours, # 100 tablet, 1 Refills, Acute 09/11/21 13:31:00 EST, 09/12/20 13:30:00 EST, ER Tablet, [facility], 159, cm, 07/27/20 13:20:00 EDT, Height Start Date: 09/12/20 Stop Date: 09/11/21 Status: Ordered Problem List Condition Effective Dates Status Health Status Inform ant Hematuria(Confirmed) 1 Active Chronic back pain(Confirmed) Active Dyslipidemia(Confirmed) Active h/o allergic rhinitis(Confirmed) Active Illiteracy(Confirmed) Active Dyspepsia(Confirmed) Active Disc displacement(Confirmed) Active [facility]/CC-Serena Purcell-[phone]/[facility], Active Care Coordination(Confirmed) Active Tubular adenoma of colon - d ue 2021(Confirmed) 2 11/2015 Active lul Vick 2-2014, had cystoscopy 2014 Social History Social History Type Response Smoking Status Never smoker entered on: 08/23/16 Sex
--- OUTSIDE RECORDS SUMMARY | 2023-06-10 06:22 | XMS_ITS | Continuity of Care Document ---
Author Name Unknown Organization [facility] Address [address] [place] [address]- Care Team Providers Care Emergency Medical Service Manager Name Role Phone Trenton Eastman MD Primary Care Physician Encounter [facility] Date(s): 11/19/22 - 12/19/22 [facility] [address] [place] [id number] Allergies, Adverse Reactions, Alerts Substance Reaction [...] inactivated 1 10/12/10 Gi jocy SARS-CoV-2 mRNA ([id number]) vax 06/13/22 Recorded SARS-CoV-2 (COVID-19) mRNA BNT-162b2 vac 09/13/21 Recorded SARS-CoV-2 (COVID-19) mRNA BNT-162b2 vac 02/27/21 Given SARS-CoV-2 (COVID-19) mRNA BNT-162b2 vac 02/06/21 Given tetanus-diphtheria toxoids (Td) 11/23/20 Given tetanus/diphtheria/pertussis, acel(Tdap) 2 10/12/10 Given 1Admin Note: VIS given 05/30/10, Welsh form 2Admin Note: VIS given, 08/2008, Welsh form Medications amLODIPine 5 mg oral tablet 5 mg, 1, tablet, By Mouth, Daily, # 90 tablet, Refills 3, Tot. Refills 3, Maintenance, 11/01/22 9:44:00 EST, [id number] Partial fill upon patient request ifthe prescription is for a schedule II opioid drug.,... Start Date: 11/01/22 Status: Ordered Artificial Tears preserved solution 1 drops, Eyes, Both, 2 times a day, PRN for dry eyes, # 30 mL, 0 Refills, Maintenance, 11/29/22 17:50:00 EST, Solution, [facility]/pharmacy #[id number], Partial fill upon patient request if the prescription is for a schedule II opioid drug., 1 drops Eyes, Both 2 t... Start Date: 11/29/22 Status: Ordered Ativan 0.5 mg oral tablet 1 tablet = 0.5 mg, By Mouth, Once, botswanan label, take 30 mins to 1 hr before flight, # 2 tablet, 0Refills, Soft Stop, 10/08/22 17:54:00 EST, Tablet, [id number] Partial fill upon patient request if the prescription is for a schedule II opioi... Start Date: 10/08/22 Status: Ordered atorvastatin 40 mg oral tablet 1 tablet = 40 mg, By Mouth, Daily, # 30 tablet, 5 Refills, Maintenance, 12/19/22 14:49:00 EST, Tablet, [facility], Partial fill upon patient request if the prescription is for a schedule II opioid drug., 162.56, cm, 12/19/22 14:01:00 E... Start Date: 12/19/22 Status: Ordered azelastine 137 mcg/inh (0.1%) nasal spray 0 Refills, Maintenance, 12/07/21 11:16:00 EST, via Dr Glover, salesperson pets and pet supplies Start Date: 12/07/21 Status: Ordered baclofen 10 mg oral tablet See Instructions, TOMAileen JOAN TABLETA POR VIA ORAL KARLA VECES AL MONICA, # 63 tablet, Refills 0, Instructions Replace Required Details, Route to Pharmacy Electronically, [facility] STORE [id number], 157.5, cm, 04/10/22 10:29:00 EDT, Height, 75, [...] 2 times a day, Print instructions in botswanan, # 60 mL, 1 Refills, Maintenance, 07/11/22 11:00:00 EDT, Suspension, [facility]/pharmacy #[id number], Partial fill upon patient request if the prescription is for a schedule II opioid drug., 1... Start Date: 07/11/22 Status: Ordered [facility] LUBRICANT EYE DROPS Maintenance, 12/07/21 11:16:00 EST, via Dr Glover, salesperson pets and pet supplies, Supply Start Date: 12/07/21 Status: Ordered diclofenac 1% topical gel 1 application, Topically, 4 times a day, # 100 Gm, 5 Refills, Maintenance, 12/07/22 11:37:00 EST, Gel, [facility]/pharmacy #[id number], Partial fill upon patient [...] 2 Refills, Maintenance, 06/24/22 12:04:00 EDT, Tablet, [facility]/pharmacy #[id number], Partial fill upon patient request if the prescription is for a schedule... Start Date: 06/24/22 Stop Date: 09/22/22 Status: Ordered Flomax 0.4 mg oral capsule 0.4 mg, 1, capsule, By Mouth, Daily, # 30 capsule, Refills 5, Tot. Refills 5, Maintenance, 11/07/2310:08:00 EST, Route to Pharmacy Electronically, [facility]/pharmacy #[id number], Partial fill upon patient request if the prescription is for a schedule II opioid d... Start Date: 11/07/22 Status: Ordered loratadine 10 mg oral tablet 10 mg, 1, tablet, By Mouth, Daily, # 30 tablet, Refills 5, Tot. Refills 5, Maintenance, 12/18/21 10:54:00 EST, Route to Pharmacy Electronically, [facility]/pharmacy #[id number], Partial fill upon patient request if the prescription is for a schedule II opioid drug... Start Date: 12/18/21 Status: Ordered LUBRICNT EYE JESSICA 0.4-0.3% Maintenance, 12/07/21 11:16:00 EST, via Dr Glover, salesperson pets and pet supplies, Supply Start Date: 12/07/21 Status: Ordered minoxidil 2% topical solution 1 mL = 0.02 Gm, Topically, 2 times a day, # 60 mL, 2 Refills, Maintenance, 02/28/22 16:27:00 EDT, Solution, [facility]/pharmacy #[id number], Partial fill upon patient [...] EDT, He... Start Date: 06/11/22 Status: Ordered Joppa-3 1000 mg oral capsule via psychiatry, 0 Refills, Maintenance, 12/07/21 11:13:00 EST, Partial fill upon patient request ifthe prescription is for a schedule II opioid drug. Start Date: 12/07/21 Status: Ordered omeprazole 40 mg oral enteric coated capsule See Instructions, JUAN RAMON JOAN CAPSULA DOS VECES AL MONICA, # 180 capsule, 1 Refills, Maintenance, 09/05/22 10:55:00 EST, [id number], 162.56, cm, 07/12/22 10:42:00 EDT, Height, 76.5, [...] mL, 4 Refills, Maintenance, 02/28/22 16:09:00 EDT, [place], [id number], Partial fill upon patient request if the prescription is for a schedule II opioid drug., 1 sprays N... Start Date: 02/28/22 Status: Ordered Tears Naturale Forte preserved ophthalmic solution 1 drops, Eyes, Both, 2 times a day, PRN for dry eyes, # 30 mL, 0 Refills, Maintenance, 11/30/22 11:37:00 EST, Solution, [id number], Partial fill upon patient request if the [...] displacement Confirmed Active Onychomycosis Confirmed Active *[facility]/CC-Patricia [phone]/[facility], Active Care Coordination Confirmed Active Nasal septum perforation, h/o cocaine Confirmed Active Muscle spasm Confirmed Active Tubular adenoma of colon - due 2021 2 Confirmed 11/2015 Active 1, gross 2-2014, had cystoscopy 2014 Social History Social History Type Response Smoking Status Never smoker entered on: 08/23/16 Sex Patient Care team information Care Team Personnel Name: Raiza KRISHNA, [place]on Position: [facility] Resident Member Role: PCP Address: Address: [address] [place] [address] [place] [address]- Care Team Related Persons Name: AJAY BE Address: [place] [address] Name: KAMALJIT FUCHS Address: home [address] [place] [address] [place] [id number]
--- OUTSIDE RECORDS SUMMARY | 2023-06-10 06:22 | XMS_ITS | Continuity of Care Document ---
Author Name Unknown Organization [facility] Address [address] [place] [address]- Care Team Providers Care Magnetic Prospector Name Role Phone Raiza KRISHNA, [place]on Primary Care Physician [phone] Encounter [facility] Date(s): 02/07/23 - 03/09/23 [facility] [address] [place] [id number] Allergies, Adverse Reactions, Alerts Substance Reaction [...] inactivated 1 10/12/10 Gi jocy SARS-CoV-2 mRNA ([id number]) vax 06/13/22 Recorded SARS-CoV-2 (COVID-19) mRNA BNT-162b2 vac 09/13/21 Recorded SARS-CoV-2 (COVID-19) mRNA BNT-162b2 vac 02/27/21 Given SARS-CoV-2 (COVID-19) mRNA BNT-162b2 vac 02/06/21 Given tetanus-diphtheria toxoids (Td) 11/23/20 Given tetanus/diphtheria/pertussis, acel(Tdap) 2 10/12/10 Given 1Admin Note: VIS given 05/30/10, Eritrean form 2Admin Note: VIS given, 08/2008, Eritrean form Medications amLODIPine 5 mg oral tablet 5 mg, 1, tablet, By Mouth, Daily, # 90 tablet, Refills 3, Tot. Refills 3, Maintenance, 11/01/22 9:44:00 EST, [id number] Partial fill upon patient request ifthe prescription is for a schedule II opioid drug.,... Start Date: 11/01/22 Status: Ordered Artificial Tears preserved solution 1 drops, Eyes, Both, 2 times a day, PRN for dry eyes, # 30 mL, 2 Refills, Maintenance, 02/04/23 9:35:00 EDT, Solution, [facility]/pharmacy #[id number], Partial fill upon patient request if the prescription is fora schedule II opioid drug., 1 drops Eyes, Both 2 ti... Start Date: 02/04/23 Status: Ordered Ativan 0.5 mg oral tablet 1 tablet = 0.5 mg, By Mouth, Once, montenegrin label, take 30 mins to 1 hr before flight, # 2 tablet, 0Refills, Soft Stop, 10/08/22 17:54:00 EST, Tablet, [id number] Partial fill upon patient request if the prescription is for a schedule II opioi... Start Date: 10/08/22 Status: Ordered atorvastatin 40 mg oral tablet 1 tablet = 40 mg, By Mouth, Daily, # 30 tablet, 5 Refills, Maintenance, 12/19/22 14:49:00 EST, Tablet, [facility], Partial fill upon patient request if the prescription is for a schedule II opioid drug., 162.56, cm, 12/19/22 14:01:00 E... Start Date: 12/19/22 Status: Ordered azelastine 137 mcg/inh (0.1%) nasal spray 0 Refills, Maintenance, 12/07/21 11:16:00 EST, via Dr Glover, helicopter utility aircrewman Start Date: 12/07/21 Status: Ordered baclofen 10 mg oral tablet See Instructions, TOME JOAN TABLETA POR VIA ORAL KARLA VECES AL MONICA, # 63 tablet, Refills 0, Instructions Replace Required Details, Route to Pharmacy Electronically, [id number], 157.5, cm, 04/10/22 10:29:00 EDT, Height, 75, [...] 2 times a day, Print instructions in montenegrin use only for toenails, # 60 mL, 1 Refills, Maintenance, 01/18/23 10:15:00 EDT, Suspension, [facility]/pharmacy #[id number], Partial fill uponpatient request if the prescription is for a sched... Start Date: 01/18/23 Status: Ordered [facility] LUBRICANT EYE DROPS Maintenance, 12/07/21 11:16:00 EST, via Dr Glover, helicopter utility aircrewman, Supply Start Date: 12/07/21 Status: Ordered diclofenac 1% topical gel 1 application, Topically, 4 times a day, # 100 Gm, 5 Refills, Maintenance, 12/07/22 11:37:00 EST, Gel, [facility]/pharmacy #[id number], Partial fill upon patient request [...] Refills, Maintenance, 06/24/22 12:04:00 EDT, Tablet, [facility]/pharmacy #[id number], Partial fill upon patient request if the prescription is for a schedule... Start Date: 06/24/22 Stop Date: 09/22/22 Status: Ordered Flomax 0.4 mg oral capsule 0.4 mg, 1, capsule, By Mouth, Daily, # 30 capsule, Refills 5, Tot. Refills 5, Maintenance, 11/07/2310:08:00 EST, Route to Pharmacy Electronically, [facility]/pharmacy #[id number], Partial fill upon patient request [...] 1 application, Topically, Daily, Print instructions in montenegrin Use only on feet, # 60 Gm, [...] Maintenance, 12/07/21 11:16:00 EST, via Dr Glover, helicopter utility aircrewman, Supply Start Date: 12/07/21 Status: Ordered minoxidil [...] 5 Refills, Maintenance, 12/07/22 11:36:00 EST, Suspension, [facility]/pharmacy #[id number], Partial fill upon patient request [...] EDT, He... Start Date: 06/11/22 Status: Ordered Zion-3 1000 mg oral capsule via psychiatry, 0 Refills, Maintenance, 12/07/21 11:13:00 EST, Partial fill upon patient request ifthe prescription is for a schedule II opioid drug. Start Date: 12/07/21 Status: Ordered omeprazole 40 mg oral enteric coated capsule See Instructions, JUAN RAMON WEBB VECES AL MONICA, # 180 capsule, 1 Refills, Maintenance, 02/25/23 7:44:00 EDT, [id number], 158, cm, 02/20/23 9:30:00 EDT, Height, 76.5, [...] 11 Refills, Maintenance, 01/14/23 15:27:00 EDT, Tablet, [facility]/pharmacy #[id number], label in Eritrean, 162.56,cm, 01/14/23 15:01:00 EDT, Height, 76.5, kg, [...] mL, 4 Refills, Maintenance, 02/28/22 16:09:00 EDT, [place], [id number], Partial fill upon patient request if the prescription is for a schedule II opioid drug., 1 sprays N... Start Date: 02/28/22 Status: Ordered Tears Naturale Forte preserved ophthalmic solution 1 drops, Eyes, Both, 2 times a day, PRN for dry eyes, # 30 mL, 0 Refills, Maintenance, 11/30/22 11:37:00 EST, [facility], [id number], Partial fill upon patient request if the [...] class I Confirmed Active Onychomycosis Confirmed Active *[facility]/CC-Patricia [phone]/[facility], Active Care Coordination Confirmed Active Nasal septum [...] HOSPITAL Resident Member Role: PCP Address: Address: [address] [place] [address]- Care Team Related Persons Name: AJAY BE Address: [place] [address] Name: KAMALJIT FUCHS Address: home [address] [place] [address] [place] [id number]
--- OUTSIDE RECORDS SUMMARY | 2023-06-10 06:22 | XMS_ITS | Continuity of Care Document ---
Author Name Unknown Organization [facility] Address [address] [place] [address]- Care Team Providers Care Regional Account Executive Name Role Phone Bebe KRISHNA, Hugh Primary Care Physician Encounter [facility] Date(s): 01/13/21 - 02/12/21 [facility] [address] [place] [id number] Allergies, Adverse Reactions, Alerts Substance Reaction Severity Status penicillins Active Immunizations Given and Recorded Vaccine Date Status Refusal Reason SARS-CoV-2 (COVID-19) mRNA BNT-162b2 vac 02/06/21 Given tetanus-diphtheria toxoids (Td) 11/23/20 Given influenza virus vaccine, inactivated 07/27/20 Give n influenza virus vaccine, inactivated 12/21/19 Give n influenza virus vaccine, inactivated 07/15/19 Give n influenza virus vaccine, inactivated 1 10/12/10 Gi jocy tetanus/diphtheria/pertussis, acel(Tdap) 2 10/12/10 Given 1Admin Note: VIS given 05/30/10, [place]ermudian form 2Admin Note: VIS given, 08/2008, Bermudian form Medications amLODIPine 2.5 mg oral tablet 2.5 mg, 1, tablet, By Mouth, Daily, ; STOP amlodipine 5 mg. use this dose instead., # 30 tablet, Refills 11, Tot. Refills 11, Maintenance, 11/22/20 16:52:00 EST, Route to Pharmacy Electronically, [facility]/pharmacy #[id number], label all scripts in [place],... Start Date: 11/22/20 Stop Date: 11/17/21 Status: Ordered azelastine 0.05% ophthalmic solution 1 drops, Eyes, Both, 2 times a day, PRN for allergy symptoms, # 6 mL, 6 Refills, Maintenance, 01/13/21 14:54:00 EDT, [facility]/pharmacy #[id number], Label in Bermudian, 1 drops Eyes, Both 2 times a day,PRN:for allergy symptoms, 159, cm, 01/04/21 9:23:00 EDT, Height... Start Date: 01/13/21 Status: Ordered diclofenac 1% topical gel 1 application, Topically, 4 times a day, not to exceed 32 grams/day, # 100 Gm, 2 Refills, Maintenance, 12/12/20 11:17:00 EST, Gel, [facility]/pharmacy #[id number], Label in Bermudian please, 159, cm, 12/12/20 10:33:00 EST, Height, 74.1, kg, 10/20/20 16:18:00 EST, DrDonal.. Start Date: 12/12/20 Status: Ordered Flonase 50 mcg/inh nasal spray 1 sprays, Nares, Both, Daily, # 16 Gm, 1 Refills, Maintenance, 06/16/20 18:04:00 EDT, [place], [facility]/pharmacy #[id number], 159, cm, 06/08/20 13:31:00 EDT, Height Start Date: 06/16/20 Status: Ordered multivitamin Multiple Vitamins oral capsule 1 capsule, By Mouth, Daily, # 90 capsule, 1 Refills, Maintenance, 02/06/21 14:59:00 EDT, Capsule, [facility]/pharmacy #[id number], 1 capsule By Mouth Daily, 159, [...] 4 Refills, Maintenance, 10/05/20 14:48:00EST, EC Capsule, [facility]/pharmacy #[id number], Partial fill upon patient request if [...] 12/16/20 14:32:00 EST, Route to Pharmacy Electronically, [facility]/pharmacy #[id number], 159, cm, 12/16/20 13:47:00 EST, Height, 74.1, kg, 10/20/20 16:18:00 EST, Dry Weight Start Date: 12/16/20 Status: Ordered Tylenol 8 HR Arthritis Pain 650 mg oral tablet, extended release 1 tablet = 650 mg, By Mouth, Every 8 hours, # 100 tablet, 1 Refills, Acute 12/05/21 9:00:00 EST, 12/05/20 15:26:00 EST, ER Tablet, [facility]/pharmacy #[id number], 159, cm, 07/27/20 13:20:00 EDT, Height, 74.1, kg, 10/20/20 16:18:00 EST, Dry Weight Start Date: 12/05/20 Stop Date: 12/05/21 Status: Ordered Problem List Condition Effective Dates Status Health Status Inform ant Hematuria(Confirmed) 1 Active Chronic back pain(Confirmed) Active Dyslipidemia(Confirmed) Active h/o allergic rhinitis(Confirmed) Active Illiteracy(Confirmed) Active Dyspepsia(Confirmed) Active Disc displacement(Confirmed) Active BHN/[facility]ECARE/CC-Serena Purcell-[phone]/Health [facility], Active Care Coordination(Confirmed) Active Tubular adenoma of colon - d ue 2021(Confirmed) 2 11/2015 Active 1 gross 2-2014, had cystoscopy 2014 Social History Social History Type Response Smoking Status Never smoker entered on: 08/23/16 Sex
--- OUTSIDE RECORDS SUMMARY | 2023-06-10 06:22 | XMS_ITS | Continuity of Care Document ---
Author Name Unknown Organization [facility] Address [address] [place] [address]- Care Team Providers Care Aerospace Engineer Officer Armament Name Role Phone Trenton Eastman MD Primary Care Physician [phone] Encounter [facility] Date(s): 10/27/21 - 11/26/21 [facility] [address] [place] [id number] Allergies, Adverse Reactions, Alerts [...] 10/12/10 Given 1Admin Note: VIS given 05/30/10, [place] Korean form 2Admin Note: VIS given, 08/2008, [place] Korean form Medications amLODIPine 2.5 mg oral tablet 2.5 mg, 1, tablet, By Mouth, Daily, ; STOP amlodipine 5 mg. use this dose instead., # 30 tablet, Refills 5, Tot. Refills 5, Maintenance, 11/17/21 16:52:00 EST, Route to Pharmacy Electronically,[id number], label all scripts in [place], 1... Start Date: 11/17/21 Stop Date: 05/16/22 Status: Ordered azelastine 0.05% ophthalmic solution 1 drops, Eyes, Both, 2 times a day, PRN for allergy symptoms, # 6 mL, 6 Refills, Maintenance, 01/13/21 14:54:00 EDT, [facility]/pharmacy #[id number], Label in [place] Korean, 1 drops Eyes, Both 2 times a [...] 1 Refills, Maintenance, 08/28/21 14:44:00 EST, Solution, [facility]/pharmacy #[id number], Partial fill upon patient request if [...] 0 Refills, Maintenance, 04/28/21 17:22:00 EDT, Gel, [facility]/pharmacy #[id number], Partial fill upon patient request if the prescription is for a schedule II opioid drug., 1 application Topically 2 times a day,... Start Date: 04/28/21 Status: Ordered Flonase 50 mcg/inh nasal spray 1 sprays, Nares, Both, Daily, # 16 Gm, 1 Refills, Maintenance, 06/16/20 18:04:00 EDT, [place], [facility]/pharmacy #[id number], 159, cm, 06/08/20 13:31:00 EDT, Height Start Date: 06/16/20 Status: Ordered multivitamin Multiple Vitamins oral capsule 1 capsule, By Mouth, Daily, # 90 capsule, 0 Refills, Maintenance, 10/18/21 22:09:00 EST, Capsule, [facility]/pharmacy #[id number], 1 capsule By Mouth Daily, 159, cm, 10/05/21 13:26:00 EST, Height, 78, kg, 01/01/21 16:06:00 EDT, Dry Weight Start Date: 10/18/21 Status: Ordered NuLYTELY with Flavor Packs oral powder for reconstitution 240 mL, By Mouth, Every 10 minutes, # 1 each, 0 Refills, Maintenance, 09/21/21 9:33:00 EST, REC Powder, [facility], Partial fill upon patient request if the prescription is for a schedule II opioid drug., 240 mL By Mouth Every 10 minut... Start Date: 09/21/21 Status: Ordered omeprazole 40 mg oral enteric coated capsule 1 capsule = 40 mg, By Mouth, 2 times a day, # 60 capsule, 2 Refills, Maintenance, 04/13/21 10:31:00EDT, EC Capsule, [facility]/pharmacy #[id number], Partial fill upon patient request if [...] Mouth, Daily, at night (print label in chadian), # 30 capsule, Refills 1, Tot. Refills 1, Maintenance, 09/28/21 14:03:00 EST, Route to Pharmacy Electronically, [facility], Partial fill upon patient request if the... Start Date: 09/28/21 Status: Ordered Tears Naturale Forte preserved ophthalmic solution 1 drops, Eyes, Both, 2 times a day, PRN for dry eyes, # 30 mL, 0 Refills, Maintenance, 08/28/21 14:52:00 EST, Solution, [facility]/pharmacy #[id number], Partial fill upon patient request if the prescription is for a schedule II opioid drug., 1 drops Eyes, Both 2 t... Start Date: 08/28/21 Status: Ordered tiZANidine 2 mg oral capsule 1 capsule = 2 mg, By Mouth, 3 times a day, PRN as needed for muscle spasm, # 9 capsule, 0 Refills, Maintenance, 04/28/21 17:18:00 EDT, Capsule, [facility]/pharmacy #[id number], chadian labeling, 159, cm, 04/28/2115:46:00 EDT, Height, 78, kg, 01/01/21 16:06:00 EDT... Start Date: 04/28/21 Stop Date: 05/01/21 Status: Ordered Tums 500 mg oral tablet, chewable 500 mg, 1, tablet, Chew, 2 times a day, # 60 tablet, Refills 5, Tot. Refills 5, Maintenance, 12/16/20 14:32:00 EST, Route to Pharmacy Electronically, [facility]/pharmacy #[id number], 159, cm, 12/16/20 13:47:00 EST, Height, 74.1, kg, 10/20/20 16:18:00 EST, Dry Weight Start Date: 12/16/20 Status: Ordered Problem List Condition Effective Dates Status Health Status Inform ant Hematuria(Confirmed) 1 Active Chronic back pain(Confirmed) Active Dyslipidemia(Confirmed) Active h/o allergic rhinitis(Confirmed) Active Illiteracy(Confirmed) Active Dyspepsia(Confirmed) Active Disc displacement(Confirmed) Active Onychomycosis(Confirmed) Active *[facility]N/[facility]/CC-Patricia [phone]/Health Assisted, Active Care Coordination(Confirmed) Active Muscle spasm(Confirmed) Active Tubular adenoma of colon - d ue 2021(Confirmed) 2 11/2015 Active 1, gross 2-2014, had cystoscopy 2014 Social History Social History Type Response Smoking Status Never smoker entered on: 08/23/16 Sex
--- OUTSIDE RECORDS SUMMARY | 2023-06-10 06:22 | XMS_ITS | Continuity of Care Document ---
Author Name Unknown Organization [facility] Address [address] [place] [address]- Care Team Providers Care Heel Attacher Wood Name Role Phone Raiza KRISHNA, Trenton Primary Care Physician [facility] [facility] Date(s): 07/12/22 - 09/05/22 [facility] [address] [place] [id number] Attending Physician: Heena Mazariegos MD Admitting Physician: Heena Mazariegos MD Allergies, Adverse Reactions, Alerts Substance Reaction Severity Status penicillins Superficial gravel r enid Itching Active Immunizations Given and Recorded Vaccine Date Status Refusal Reason SARS-CoV-2 mRNA ([id number]) vax 06/13/22 Recorded SARS-CoV-2 (COVID-19) mRNA BNT-162b2 [...] 10/12/10 Given 1Admin Note: VIS given 05/30/10, Tanzanian form 2Admin Note: VIS given, 08/2008, Tanzanian form Medications amLODIPine 2.5 mg oral tablet 1 tablet, By Mouth, Daily, USE THIS DOSE INSTEAD., # 90 tablet, 5 Refills, [id number], 157.5, cm, 04/10/22 10:29:00 EDT, Height, 75, kg, 03/25/22 2:00:00 EDT, Dry Weight Start Date: 05/04/22 Status: Ordered azelastine 0.05% ophthalmic solution 1 drops, Eyes, Both, 2 times a day, PRN for allergy symptoms, For eye allergies, # 6 mL, 6 Refills,Maintenance, 02/28/22 16:27:00 EDT, [id number], Label in [place]anian, 1 drops Eyes, Both 2 times a day,PRN:for allergy symptoms,Instr:For eye aller... Start Date: 02/28/22 Status: Ordered azelastine 137 mcg/inh (0.1%) nasal spray 0 Refills, Maintenance, 12/07/21 11:16:00 EST, via Dr Glover, zipper trimmer hand Start Date: 12/07/21 Status: Ordered baclofen 10 mg oral tablet See Instructions, TOME JOAN TABLETA POR VIA ORAL KARLA ISELAES AL MONICA, # 63 tablet, Refills 0, Instructions Replace Required Details, Route to Pharmacy Electronically, [id number], 157.5, cm, 04/10/22 10:29:00 EDT, Height, 75, [...] 2 times a day, Print instructions in east timore[place], # 60 mL, 1 Refills, Maintenance, 07/11/22 11:00:00 EDT, [place], [facility]/pharmacy #[id number], Partial fill upon patient request if the prescription is for a schedule II opioid drug., 1... Start Date: 07/11/22 Status: Ordered clotrimazole 1% topical cream 1 application, Topically, 2 times a day, Print instructions in [place] tim[place] Apply to groin area, face, and also in between digits on both feet, # 100 Gm, 0 Refills, Maintenance, 07/11/22 11:00:00 EDT, [place], [id number], Partial fill upon patient r... Start Date: 07/11/22 Status: Ordered [facility] LUBRICANT EYE DROPS Maintenance, 12/07/21 11:16:00 EST, via Dr Glover, zipper trimmer hand, Supply Start Date: 12/07/21 Status: Ordered cyclobenzaprine 5 mg oral tablet 0 Refills, Maintenance, 09/28/21 13:55:00 EST, Partial fill upon patient request if the prescription is for a schedule II opioid drug. Start Date: 09/28/21 Status: Ordered diclofenac 3% topical gel 1 application, Topically, 2 times a day, # 100 Gm, 0 Refills, Maintenance, 04/28/21 17:22:00 EDT, Gel, [facility]/pharmacy #[id number], Partial fill upon patient [...] 2 Refills, Maintenance, 06/24/22 12:04:00 EDT, Tablet, [facility]/pharmacy #[id number], Partial fill upon patient request if the prescription is for a schedule... Start Date: 06/24/22 Stop Date: 09/22/22 Status: Ordered Flonase 50 mcg/inh nasal spray 1 sprays, Nares, Both, Daily, # 16 Gm, 1 Refills, Maintenance, 11/30/21 10:55:00 EST, [place], [facility]/pharmacy #[id number], 1 sprays Nares, Both Daily, 159, cm, 11/30/21 9:50:00 EST, Height, 78, kg, 01/01/21 16:06:00 EDT, Dry Weight Start Date: 11/30/21 Status: Ordered loratadine 10 mg oral tablet 10 mg, 1, tablet, By Mouth, Daily, # 30 tablet, Refills 5, Tot. Refills 5, Maintenance, 12/18/21 10:54:00 EST, [id number] Partial fill upon patient request if the prescription is for a schedule II opioid drug... Start Date: 12/18/21 Status: Ordered LUBRICNT EYE JESSICA 0.4-0.3% Maintenance, 12/07/21 11:16:00 EST, via Dr Glover, zipper trimmer hand, Supply Start Date: 12/07/21 Status: Ordered minoxidil 2% topical solution 1 mL = 0.02 Gm, Topically, 2 times a day, # 60 mL, 2 Refills, Maintenance, 02/28/22 16:27:00 EDT, Solution, [id number] Partial fill upon patient request if the prescription is for a scheduleII opioid drug., 1 mL Topically 2 times a day, 159,... Start Date: 02/28/22 Status: Ordered multivitamin Multiple Vitamins oral capsule 1 capsule, By Mouth, Daily, # 90 capsule, 1 Refills, Maintenance, 03/22/22 15:18:00 EDT, Capsule, [facility]/pharmacy #[id number], 1 capsule By Mouth Daily, 159, cm, 03/22/22 10:39:00 EDT, Height, 78, kg, 01/01/21 16:06:00 EDT, Dry Weight Start Date: 03/22/22 Status: Ordered NuLYTELY with Flavor Packs oral powder for reconstitution 240 mL, By Mouth, Every 10 minutes, # 1 each, 0 Refills, Maintenance, 09/21/21 9:33:00 EST, [facility] Pow[facility] Partial fill upon patient request if the [...] EDT, He... Start Date: 06/11/22 Status: Ordered [place]-3 1000 mg oral capsule via psychiatry, 0 Refills, Maintenance, 12/07/21 11:13:00 EST, Partial fill upon patient request ifthe prescription is for a schedule II opioid drug. Start Date: 12/07/21 Status: Ordered omeprazole 40 mg oral enteric coated capsule See Instructions, JUAN RAMON ARTA DOS VECES AL MONICA, # 180 capsule, 1 Refills, Maintenance, 09/05/22 10:55:00 EST, [facility], 162.56, cm, 07/12/22 10:42:00 EDT, Height, 76.5, [...] mL, 4 Refills, Maintenance, 02/28/22 16:09:00 EDT, [place], [id number], Partial fill upon patient request if the prescription is for a schedule II opioid drug., 1 sprays N... Start Date: 02/28/22 Status: Ordered tamsulosin 0.4 mg oral capsule 0.4 mg, 1, capsule, By Mouth, Daily, at night (print label in east timore[place]), # 30 capsule, Refills 1, Tot. Refills 1, Maintenance, 09/28/21 14:03:00 EST, Route to Pharmacy Electronically, [facility], Partial fill upon patient request if the... Start Date: 09/28/21 Status: Ordered Tears Naturale Forte preserved ophthalmic solution 1 drops, Eyes, Both, 2 times a day, PRN for dry eyes, # 30 mL, 0 Refills, Maintenance, 08/28/21 14:52:00 EST, Solution, [facility]/pharmacy #[id number], Partial fill upon patient request if the prescription is for a schedule II opioid drug., 1 drops Eyes, Both 2 t... Start Date: 08/28/21 Status: Ordered tiZANidine 2 mg oral capsule 1 capsule = 2 mg, By Mouth, 3 times a day, PRN as needed for muscle spasm, # 9 capsule, 0 Refills, Maintenance, 04/28/21 17:18:00 EDT, Capsule, [facility]/pharmacy #[id number], east timorese labeling, 159, cm, 04/28/2115:46:00 EDT, Height, 78, kg, 01/01/21 16:06:00 EDT... Start Date: 04/28/21 Stop Date: 05/01/21 Status: Ordered Tums 500 mg oral tablet, chewable 500 mg, 1, tablet, Chew, 2 times a day, # 60 tablet, Refills 5, Tot. Refills 5, Maintenance, 12/16/20 14:32:00 EST, [id number] 159, cm, 12/16/20 13:47:00 EST, Height, [...] Disc displacement Confirmed Active Onychomycosis Confirmed Active *N/[facility]ECARE/CC-Mary gayle [phone]/H [facility], Active Care Coordination Confirmed Active Nasal septum perforation, h/o cocaine Confirmed Active Muscle spasm Confirmed Active Tubular adenoma of colon - due 2021 2 Confirmed 11/2015 Active 1, gross 2-2014, had cystoscopy 2014 removed 2015 Social History Social History Type Response Smoking Status Never smoker entered on: 08/23/16 Sex Patient Care team information Care Team Personnel Name: Raiza KRISHNA, Trenton Position: [facility] Resident Member Role: PCP Address: Address: [address] [place] [address] [place] [address]- Care Team Related Persons Name: AJAY BE Address: [place] [address] Name: KAMALJIT FUCHS Address: home [address] [place] [address] [address] [place] [id number]
--- OUTSIDE RECORDS SUMMARY | 2023-06-10 06:22 | XMS_ITS | Continuity of Care Document ---
Author Name Unknown Organization [facility] Address [address] [place] [address]- Care Team Providers Care Aerospace Control And Warning Systems Name Role Phone Trenton Eastman MD Primary Care Physician Encounter [facility] Date(s): 06/29/21 - 08/02/21 [facility] [address] [place], [place] [address] Attending Physician: Not on Staff, Attending MD Allergies, Adverse Reactions, Alerts Substance Reaction [...] 10/12/10 Given 1Admin Note: VIS given 05/30/10, Dutch form 2Admin Note: VIS given, 08/2008, Dutch form Medications amLODIPine 2.5 mg oral tablet 2.5 mg, 1, tablet, By Mouth, Daily, ; STOP amlodipine 5 mg. use this dose instead., # 30 tablet, Refills 11, Tot. Refills 11, Maintenance, 11/22/20 16:52:00 EST, Route to Pharmacy Electronically, [facility]/pharmacy #[id number], label all scripts in [place],... Start Date: 11/22/20 Stop Date: 11/17/21 Status: Ordered azelastine 0.05% ophthalmic solution 1 drops, Eyes, Both, 2 times a day, PRN for allergy symptoms, # 6 mL, 6 Refills, Maintenance, 01/13/21 14:54:00 EDT, [facility]/pharmacy #[id number], Label in Dutch, 1 drops Eyes, Both 2 times a day,PRN:for allergy symptoms, 159, cm, 01/04/21 9:23:00 EDT, Height... Start Date: 01/13/21 Status: Ordered diclofenac 3% topical gel 1 application, Topically, 2 times a day, # 100 Gm, 0 Refills, Maintenance, 04/28/21 17:22:00 EDT, Gel, [facility]/pharmacy #[id number], Partial fill upon patient request if the prescription is for a schedule II opioid drug., 1 application Topically 2 times a day,... Start Date: 04/28/21 Status: Ordered Flonase 50 mcg/inh nasal spray 1 sprays, Nares, Both, Daily, # 16 Gm, 1 Refills, Maintenance, 06/16/20 18:04:00 EDT, [place], [id number], 159, cm, 06/08/20 13:31:00 EDT, [...] 0 Refills, Maintenance, 04/28/21 17:18:00 EDT, Capsule, [facility]/pharmacy #[id number], yi labeling, 159, cm, 04/28/2115:46:00 EDT, Height, 78, kg, 01/01/21 16:06:00 EDT... Start Date: 04/28/21 Stop Date: 05/01/21 Status: Ordered Tums 500 mg oral tablet, chewable 500 mg, 1, tablet, Chew, 2 times a day, # 60 tablet, Refills 5, Tot. Refills 5, Maintenance, 12/16/20 14:32:00 EST, Route to Pharmacy Electronically, [facility]/pharmacy #[id number], 159, cm, 12/16/20 13:47:00 EST, Height, 74.1, kg, 10/20/20 16:18:00 EST, Dry Weight Start Date: 12/16/20 Status: Ordered Problem List Condition Effective Dates Status Health Status Inform ant Hematuria(Confirmed) 1 Active Chronic back pain(Confirmed) Active Dyslipidemia(Confirmed) Active h/o allergic rhinitis(Confirmed) Active Illiteracy(Confirmed) Active Dyspepsia(Confirmed) Active Disc displacement(Confirmed) Active Onychomycosis(Confirmed) Active [facility]/CC-Serena Purcell-[phone]/Health [facility], Active Care Coordination(Confirmed) Active Muscle spasm(Confirmed) Active Tubular adenoma of colon - d ue 2021(Confirmed) 2 11/2015 Active lul Vick 2-2014, had cystoscopy 2014 Social History Social History Type Response Smoking Status Never smoker entered on: 08/23/16 Sex
--- OUTSIDE RECORDS SUMMARY | 2023-06-10 06:22 | XMS_ITS | Continuity of Care Document ---
Author Name Unknown Organization [facility] Address [address] [place] [address]- Care Team Providers Care Tank Tender Name Role Phone Bebe KRISHNA, Hugh Primary Care Physician [phone] Encounter [facility] Date(s): 05/19/20 - 06/18/20 [facility] [address] [place] [address]- [facility] Allergies, Adverse Reactions, Alerts Substance Reaction Severity Status penicillins Active Immunizations Given and Recorded Vaccine Date Status Refusal Reason influenza virus vaccine, inactivated 12/21/19 Give n influenza virus vaccine, inactivated 07/15/19 Give n influenza virus vaccine, inactivated 1 10/12/10 Gi jocy tetanus/diphtheria/pertussis, acel(Tdap) 2 10/12/10 Given 1Admin Note: VIS given 05/30/10, [place] form 2Admin Note: VIS given, 08/2008, [place]ar[place]uan form Medications amLODIPine 5 mg oral tablet 5 mg, 1, tablet, By Mouth, Daily, # 90 tablet, Refills 10, Tot. Refills 10, Maintenance, 06/08/20 15:00:00 EDT, Route to Pharmacy Electronically, [facility]/pharmacy #[id number], 159, cm, 06/08/20 13:31:00 EDT, Height Start Date: 06/08/20 Stop Date: 02/23/23 Status: Ordered Artificial Tears preserved solution 1 drops, Eyes, Both, 2 times a day, PRN for dry eyes, # 10 mL, 0 Refills, Maintenance, 10/19/19 14:27:00 EST, Solution, [facility] 1 drops Eyes, Both 2 times a day,PRN:for dry eyes, 159, cm, 10/19/19 13:35:00 EST, Height Start Date: 10/19/19 Status: Ordered Flonase 50 mcg/inh nasal spray 1 sprays, Nares, Both, 2 times a day, # 16 Gm, 1 Refills, Maintenance, 06/16/20 18:04:00 EDT, [id number], 1 sprays Nares, Both 2 times a day, 159, cm, 06/08/20 13:31:00 EDT, Height Start Date: 06/16/20 Status: Ordered loratadine 10 mg oral tablet 10 mg, 1, tablet, By Mouth, Daily, # 30 tablet, Refills 2, Tot. Refills 2, Maintenance, 12/22/19 21:46:00 EST, [id number] 159, cm, 12/21/19 13:52:00 EST, Height Start Date: 12/22/19 Stop Date: 03/15/20 Status: Ordered Mylanta Maximum Strength oral suspension 20 mL, By Mouth, 4 times a day, between meals and at bedtime, # 240 mL, 1 Refills, Maintenance, 10/19/19 14:27:00 EST, Suspension, [facility], 20 mL By Mouth 4 times a day,Instr:between meals and at bedtime, 159, cm, 10/19/19 13:35:00... Start Date: 10/19/19 Status: Ordered omeprazole 40 mg oral enteric coated capsule 1 capsule = 40 mg, By Mouth, Daily, # 30 capsule, 2 Refills, Maintenance, 05/12/20 11:33:00 EDT, [facility]apsule, [id number] 159, cm, 12/21/19 13:52:00 EST, Height [...] 01/14/20 11:08:00 EDT, Route to Pharmacy Electronically, [facility] 159, cm, 12/21/19 13:52:00 EST, Height Start Date: 01/14/20 Status: Ordered Problem List Condition Effective Dates Status Health Status Inform ant Hematuria(Confirmed) 1 Active Chronic back pain(Confirmed) Active Depression(Confirmed) Active Dyslipidemia(Confirmed) Active h/o allergic rhinitis(Confirmed) Active Illiteracy(Confirmed) Active Dyspepsia(Confirmed) Active Disc displacement(Confirmed) Active *[facility], (Confirmed) 08/06/18 Active N/[facility]/Tashia Purcell-[phone]/[facility], Active Care Coordination(Confirmed) Active Tubular adenoma of colon - d ue 2021(Confirmed) 2 11/2015 Active 1lul -2014, had cystoscopy 2014 Social History Social History Type Response Smoking Status Never smoker entered on: 08/23/16 Sex
--- OUTSIDE RECORDS SUMMARY | 2023-06-10 06:22 | XMS_ITS | Continuity of Care Document ---
Author Name Unknown Organization [facility] Address [address] [place] [address]- Care Team Providers Care Routing Machine Operator Name Role Phone Raiza KRISHNA, Trenton Primary Care Physician Encounter [facility] Date(s): 04/02/22 - 05/02/22 [facility] [address] [place] [id number] Allergies, Adverse Reactions, Alerts Substance [...] 10/12/10 Given 1Admin Note: VIS given 05/30/10, Burmese form 2Admin Note: VIS given, 08/2008, Burmese form Medications amLODIPine 2.5 mg oral tablet 2.5 mg, 1, tablet, By Mouth, Daily, ; STOP amlodipine 5 mg. use this dose instead., # 30 tablet, Refills 5, Tot. Refills 5, Maintenance, 11/17/21 16:52:00 EST, Route to Pharmacy Electronically,[facility]/pharmacy #[id number], label all scripts in FRISIAN, 1... Start Date: 11/17/21 Stop Date: 05/16/22 Status: Ordered azelastine 0.05% ophthalmic solution 1 drops, Eyes, Both, 2 times a day, PRN for allergy symptoms, For eye allergies, # 6 mL, 6 Refills,Maintenance, 02/28/22 16:27:00 EDT, [facility]/pharmacy #[id number], Label in Burmese, 1 drops Eyes, Both 2 times a day,PRN:for allergy symptoms,Instr:For eye aller... Start Date: 02/28/22 Status: Ordered azelastine 137 mcg/inh (0.1%) nasal spray 0 Refills, Maintenance, 12/07/21 11:16:00 EST, via Dr Glover, pelts skinner Start Date: 12/07/21 Status: Ordered baclofen 10 mg oral tablet See Instructions, JUAN RAMON FRANCO TABLETA POR VIA ORAL KARLA VECES AL MONICA, # 63 tablet, Refills 0, Instructions Replace Required Details, Route to Pharmacy Electronically, [id number], 157.5, cm, 04/10/22 10:29:00 EDT, Height, 75, [...] Refills, Maintenance, 08/28/21 14:44:00 EST, Solution, [facility]/pharmacy #[id number], Partial fill upon patient request if the prescription is for... Start Date: 08/28/21 Status: Ordered Crutches See Instructions, # 1 kit, Maintenance, use for 2 weeks dx: leg injury, 03/27/22 10:10:00 EDT, Supply, 157.5, cm, 03/27/22 9:45:00 EDT, Height, 75, kg, 03/25/22 2:00:00 EDT, Dry Weight Start Date: 03/27/22 Status: Ordered [facility] LUBRICANT EYE DROPS Maintenance, 12/07/21 11:16:00 EST, via Dr Glover, pelts skinner, Supply Start Date: 12/07/21 Status: Ordered cyclobenzaprine 5 mg oral tablet 0 Refills, Maintenance, 09/28/21 13:55:00 EST, Partial fill upon patient request if the prescription is for a schedule II opioid drug. Start Date: 09/28/21 Status: Ordered diclofenac 3% topical gel 1 application, Topically, 2 times a day, # 100 Gm, 0 Refills, Maintenance, 04/28/21 17:22:00 EDT, Gel, [facility]/pharmacy #[id number], Partial fill upon patient request if the prescription is for a schedule II opioid drug., 1 application Topically 2 times a day,... Start Date: 04/28/21 Status: Ordered Flonase 50 mcg/inh nasal spray 1 sprays, Nares, Both, Daily, # 16 Gm, 1 Refills, Maintenance, 11/30/21 10:55:00 EST, [place], [facility]/pharmacy #[id number], 1 sprays Nares, Both Daily, [...] 10:54:00 EST, Route to Pharmacy Electronically, [facility]/pharmacy #[id number], Partial fill upon patient request if the prescription is for a schedule II opioid drug... Start Date: 12/18/21 Status: Ordered LUBRICNT EYE JESSICA 0.4-0.3% Maintenance, 12/07/21 11:16:00 EST, via Dr Glover, pelts skinner, Supply Start Date: 12/07/21 Status: Ordered minoxidil 2% topical solution 1 mL = 0.02 Gm, Topically, 2 times a day, # 60 mL, 2 Refills, Maintenance, 02/28/22 16:27:00 EDT, Solution, [facility]/pharmacy #[id number], Partial fill upon patient request [...] Refills, Maintenance, 09/21/21 9:33:00 EST, REC Powder, [facility], Partial fill upon patient request if the prescription is for a schedule II opioid drug., 240 mL By Mouth Every 10 minut... Start Date: 09/21/21 Status: Ordered Louv[place]-3 1000 mg oral capsule via psychiatry, 0 [...] 0 Refills, Maintenance, 01/02/22 20:52:00 EDT, Tablet, [facility]/pharmacy #[id number], Partial fill upon patient request [...] mL, 4 Refills, Maintenance, 02/28/22 16:09:00 EDT, [place], [facility]/pharmacy #[id number], Partial fill upon patient request if the prescription is for a schedule II opioid drug., 1 sprays N... Start Date: 02/28/22 Status: Ordered tamsulosin 0.4 mg oral capsule 0.4 mg, 1, capsule, By Mouth, Daily, at night (print label in finnish), # 30 capsule, Refills 1, Tot. Refills 1, Maintenance, 09/28/21 14:03:00 EST, Route to Pharmacy Electronically, [facility], Partial fill upon patient request if the... Start Date: 09/28/21 Status: Ordered Tears Naturale Forte preserved ophthalmic solution 1 drops, Eyes, Both, 2 times a day, PRN for dry eyes, # 30 mL, 0 Refills, Maintenance, 08/28/21 14:52:00 EST, Solution, [facility]/pharmacy #[id number], Partial fill upon patient request if the prescription is for a schedule II opioid drug., 1 drops Eyes, Both 2 t... Start Date: 08/28/21 Status: Ordered tiZANidine 2 mg oral capsule 1 capsule = 2 mg, By Mouth, 3 times a day, PRN as needed for muscle spasm, # 9 capsule, 0 Refills, Maintenance, 04/28/21 17:18:00 EDT, [facility]apsule, [id number], finnish labeling, 159, cm, 04/28/2115:46:00 EDT, Height, 78, kg, 01/01/21 16:06:00 EDT... Start Date: 04/28/21 Stop Date: 05/01/21 Status: Ordered Tums 500 mg oral tablet, chewable 500 mg, 1, tablet, Chew, 2 times a day, # 60 tablet, Refills 5, Tot. Refills 5, Maintenance, 12/16/20 14:32:00 EST, Route to Pharmacy Electronically, [facility]/pharmacy #[id number], 159, cm, 12/16/20 13:47:00 EST, [...] class I(Confirmed) Active Onychomycosis(Confirmed) Active *N/[facility]-Patricia [phone]/[facility], Active Care Coordination(Confirmed) Active Nasal septum perforation, h/ o cocaine(Confirmed) Active Muscle spasm(Confirmed) Active Tubular adenoma of colon - d ue 2021(Confirmed) 2 11/2015 Active 1, gross 2-2014, had cystoscopy 2014 Social History Social History Type Response Smoking Status Never smoker entered on: 08/23/16 Sex
--- OUTSIDE RECORDS SUMMARY | 2023-06-10 06:22 | XMS_ITS | Continuity of Care Document ---
Author Name Unknown Organization [facility] Address [address] [place] [address]- Care Team Providers Care Supervisor Dental Laboratory Name Role Phone Raiza KRISHNA, Trenton Primary Care Physician Encounter [facility] Date(s): 05/30/22 - 06/29/22 [facility] [address] [place] [id number] Allergies, Adverse Reactions, Alerts Substance Reaction Severity Status penicillins Superficial gravel r enid Itching Active Immunizations Given and Recorded Vaccine Date Status Refusal Reason SARS-CoV-2 mRNA ([id number]) vax 06/13/22 Recorded SARS-CoV-2 (COVID-19) mRNA BNT-162b2 [...] 10/12/10 Given 1Admin Note: VIS given 05/30/10, [place] form 2Admin Note: VIS given, 08/2008, [place] form Medications amLODIPine 2.5 mg oral tablet 1 tablet, By Mouth, Daily, USE THIS DOSE INSTEAD., # 90 tablet, 5 Refills, [id number], 157.5, cm, 04/10/22 10:29:00 EDT, Height, 75, kg, 03/25/22 2:00:00 EDT, Dry Weight Start Date: 05/04/22 Status: Ordered azelastine 0.05% ophthalmic solution 1 drops, Eyes, Both, 2 times a day, PRN for allergy symptoms, For eye allergies, # 6 mL, 6 Refills,Maintenance, 02/28/22 16:27:00 EDT, [id number], Label in [place], 1 drops Eyes, Both 2 times a day,PRN:for allergy symptoms,Instr:For eye aller... Start Date: 02/28/22 Status: Ordered azelastine 137 mcg/inh (0.1%) nasal spray 0 Refills, Maintenance, 12/07/21 11:16:00 EST, via Dr Glover, cylinder press operator apprentice Start Date: 12/07/21 Status: Ordered baclofen 10 mg oral tablet See Instructions, JUAN RAMON JOAN TABLETA POR VIA ORAL KARLA VECES AL MONICA, # 63 tablet, Refills 0, Instructions Replace Required Details, Route to Pharmacy Electronically, [id number], 157.5, cm, 04/10/22 10:29:00 EDT, Height, 75, [...] is for... Start Date: 08/28/21 Status: Ordered clotrimazole 1% topical cream 1 application, Topically, 2 times a day, for 14 days, # 60 Gm, 1 Refills, Acute 07/11/22 11:08:00 EDT, 06/13/22 11:08:00 EDT, Cream, [facility]/pharmacy #[id number], Partial fill upon patient request if the prescription is for a schedule II opioid drug., 1 applica... Start Date: 06/13/22 Stop Date: 07/11/22 Status: Ordered [facility] LUBR[facility]ANT E[facility] DROPS Maintenance, 12/07/21 11:16:00 EST, via Dr Glover, cylinder press operator apprentice, Supply Start Date: 12/07/21 Status: Ordered cyclobenzaprine [...] 2 Refills, Maintenance, 06/24/22 12:04:00 EDT, Tablet, [facility]/pharmacy #[id number], Partial fill upon patient request if the prescription is for a schedule... Start Date: 06/24/22 Stop Date: 09/22/22 Status: Ordered Flonase 50 mcg/inh nasal spray 1 sprays, Nares, Both, Daily, # 16 Gm, 1 Refills, Maintenance, 11/30/21 10:55:00 EST, [place], [facility]/pharmacy #[id number], 1 sprays Nares, Both Daily, 159, cm, 11/30/21 9:50:00 EST, Height, 78, kg, 01/01/21 16:06:00 EDT, Dry Weight Start Date: 11/30/21 Status: Ordered loratadine 10 mg oral tablet 10 mg, 1, tablet, By Mouth, Daily, # 30 tablet, Refills 5, Tot. Refills 5, Maintenance, 12/18/21 10:54:00 EST, Route to Pharmacy Electronically, [facility]/pharmacy #[id number], Partial fill upon patient request if the prescription is for a schedule II opioid drug... Start Date: 12/18/21 Status: Ordered LUBRICNT EYE JESSICA 0.4-0.3% Maintenance, 12/07/21 11:16:00 EST, via Dr Glover, cylinder press operator apprentice, Supply Start Date: 12/07/21 Status: Ordered minoxidil 2% topical solution 1 mL = 0.02 Gm, Topically, 2 times a day, # 60 mL, 2 Refills, Maintenance, 02/28/22 16:27:00 EDT, Solution, [facility]/pharmacy #[id number], Partial fill upon patient request if the prescription is for a scheduleII opioid drug., 1 mL Topically 2 times a day, 159,... Start Date: 02/28/22 Status: Ordered multivitamin Multiple Vitamins oral capsule 1 capsule, By Mouth, Daily, # 90 capsule, 1 Refills, Maintenance, 03/22/22 15:18:00 EDT, Capsule, [facility]/pharmacy #[id number], 1 capsule By Mouth Daily, 159, cm, 03/22/22 10:39:00 EDT, Height, 78, kg, 01/01/21 16:06:00 EDT, Dry Weight Start Date: 03/22/22 Status: Ordered NuLYTELY with Flavor Packs oral powder for reconstitution 240 mL, By Mouth, Every 10 minutes, # 1 each, 0 Refills, Maintenance, 09/21/21 9:33:00 EST, REC Powder, [facility], Partial fill upon patient request if the prescription is for a schedule II opioid drug., 240 mL By Mouth Every 10 minut... Start Date: 09/21/21 Status: Ordered NuLYTELY with Flavor Packs oral powder for reconstitution See Instructions, per GI office, # 4,000 mL, 0 Refills, Maintenance, 06/11/22 9:43:00 EDT, [facility]/pharmacy #[id number], Partial fill upon patient request if the prescription is for a schedule II opioid drug.,per GI office, 157.5, cm, 04/10/22 10:29:00 EDT, He... Start Date: 06/11/22 Status: Ordered Ward-3 1000 mg oral capsule via psychiatry, 0 Refills, Maintenance, 12/07/21 11:13:00 EST, Partial fill upon patient request ifthe prescription is for a schedule II opioid drug. Start Date: 12/07/21 Status: Ordered omeprazole 40 mg oral enteric coated capsule 1 capsule = 40 mg, By Mouth, 2 times a day, # 60 capsule, 2 Refills, Maintenance, 06/11/22 8:55:00 EDT, EC Capsule, [facility]/pharmacy #[id number], Partial fill upon patient request if the prescription is for a schedule II opioid drug., 157.5, cm, 04/10/22 10:29:... Start Date: 06/11/22 Stop Date: 09/09/22 Status: Ordered Lynette-Colace 50 mg-8.6 mg oral tablet 2 tablet, By Mouth, Daily at bedtime, PRN Constipation, For constipation, # 60 tablet, 0 Refills, Maintenance, 01/02/22 20:52:00 EDT, Tablet, [facility]/pharmacy #[id number], Partial fill [...] mL, 4 Refills, Maintenance, 02/28/22 16:09:00 EDT, Ethel, [facility]/pharmacy #[id number], Partial fill upon patient request if the prescription is for a schedule II opioid drug., 1 sprays N... Start Date: 02/28/22 Status: Ordered tamsulosin 0.4 mg oral capsule 0.4 mg, 1, capsule, By Mouth, Daily, at night (print label in nauruan), # 30 capsule, Refills 1, Tot. Refills 1, Maintenance, 09/28/21 14:03:00 EST, Route to Pharmacy Electronically, [facility], Partial fill upon patient request if the... [...] EDT, Capsule, [facility]/pharmacy #[id number], nauruan labeling, 159, cm, 04/28/2115:46:00 EDT, Height, 78, [...] Date: 06/12/22 Status: Ordered Problem List Condition Effective Dates Status Health Status Inform ant Hematuria(Confirmed) 1 Active Chronic back pain(Confirmed) Active Dyslipidemia(Confirmed) Active Allergic rhinitis(Confirmed) Active Illiteracy(Confirmed) Active Dyspepsia(Confirmed) Active Disc displacement(Confirmed) Active Onychomycosis(Confirmed) Active *[facility]/Valerie [phone]/[facility], Active Care Coordination(Confirmed) Active Nasal septum perforation, h/ o cocaine(Confirmed) Active Muscle spasm(Confirmed) Active Tubular adenoma of colon - d ue 2021(Confirmed) 2 11/2015 Active 1, gross 2-2014, had cystoscopy 2014 Social History Social History Type Response Smoking Status Never smoker entered on: 08/23/16 Sex Care Team Personnel Name: Trenton Eastman MD Address: [address] [place] [address]
--- OUTSIDE RECORDS SUMMARY | 2023-06-10 06:22 | XMS_ITS | Continuity of Care Document ---
Author Name Unknown Organization [facility] Address [address] [place] [id number]- Care Team Providers Care Watch Repairer Apprentice Name Role Phone Melvi KRISHNA, Samuel Palacios Primary Care Physician Encounter [facility] Date(s): 01/06/20 - 01/16/20 [facility] [address] [place] [id number]- [facility] Attending Physician: Admtr, Ar8 Admitting Physician: Admtr, Ar8 Referring Physician: Admtr, Ar8 Allergies, Adverse Reactions, Alerts Substance Reaction Severity Status penicillins Active Immunizations Given and Recorded Vaccine Date Status Refusal Reason influenza virus vaccine, inactivated 12/21/19 Give n influenza virus vaccine, inactivated 07/15/19 Give n influenza virus vaccine, inactivated 1 10/12/10 Gi jocy tetanus/diphtheria/pertussis, acel(Tdap) 2 10/12/10 Given 1Admin Note: VIS given 05/30/10, [place]i form 2Admin Note: VIS given, 08/2008, [place]i form Medications Artificial Tears preserved solution 1 drops, Eyes, Both, 2 times a day, PRN for dry eyes, # 10 mL, 0 Refills, Maintenance, 10/19/19 14:27:00 EST, Solution, [facility] 1 drops Eyes, Both 2 times a day,PRN:for dry eyes, 159, cm, 10/19/19 13:35:00 EST, Height Start Date: 10/19/19 Status: Ordered loratadine 10 mg oral tablet 10 mg, 1, tablet, By Mouth, Daily, # 30 tablet, Refills 2, Tot. Refills 2, Maintenance, 12/22/19 21:46:00 EST, Route to Pharmacy Electronically, [facility]/pharmacy #[id number], 159, cm, 12/21/19 13:52:00 EST, Height Start Date: 12/22/19 Stop Date: 03/15/20 Status: Ordered meloxicam 15 mg oral tablet 1 tablet = 15 mg, By Mouth, Daily, # 30 tablet, 3 Refills, Maintenance, 01/06/20 14:22:00 EDT, Tablet, [facility] 159, cm, 12/21/19 13:52:00 EST, Height Start Date: 01/06/20 Stop Date: 05/05/20 Status: Ordered Mylanta Maximum Strength oral suspension 20 mL, By Mouth, 4 times a day, between meals and at bedtime, # 240 mL, 1 Refills, Maintenance, 10/19/19 14:27:00 EST, Suspension, [facility], 20 mL By Mouth 4 times a day,Instr:between meals and at bedtime, 159, cm, 10/19/19 13:35:00... Start Date: 10/19/19 Status: Ordered omeprazole 40 mg oral enteric coated capsule 1 capsule = 40 mg, By Mouth, Daily, # 30 capsule, 2 Refills, Maintenance, 01/14/20 11:09:00 EDT, ECCapsule, [facility], 159, cm, 12/21/19 13:52:00 EST, Height Start [...] 01/14/20 11:08:00 EDT, Route to Pharmacy Electronically, [facility] 159, cm, 12/21/19 13:52:00 EST, Height Start Date: 01/14/20 Status: Ordered Problem List Condition Effective Dates Status Health Status Inform ant Hematuria(Confirmed) 1 Active Chronic back pain(Confirmed) Active Depression(Confirmed) Active Dyslipidemia(Confirmed) Active h/o allergic rhinitis(Confirmed) Active Illiteracy(Confirmed) Active Disc displacement(Confirmed) Active *[facility], [facility], (Confirmed) 08/06/18 Active N/[facility]/-Serena Purcell-[phone]/[facility], Active Care Coordination(Confirmed) Active Tubular adenoma of colon - d ue 2021(Confirmed) 2 11/2015 Active lul Vick -2014, had cystoscopy 2014 Social History Social History Type Response Smoking Status Never smoker entered on: 08/23/16 Sex
--- OUTSIDE RECORDS SUMMARY | 2023-06-10 06:22 | XMS_ITS | Continuity of Care Document ---
Author Name Unknown Organization [facility] Address [address] [place] [address]- Care Team Providers Care Head Greenskeeper Name Role Phone Trenton Eastman MD Primary Care Physician [phone] [facility]counter [facility] Date[facility]s): 07/18/21 - 08/17/21 [facility] [address], [place] [address] Allergies, Adverse Reactions, Alerts Substance Reaction [...] 10/12/10 Given 1Admin Note: VIS given 05/30/10, Malian form 2Admin Note: VIS given, 08/2008, Malian form Medications amLODIPine 2.5 mg oral tablet 2.5 mg, 1, tablet, By Mouth, Daily, ; STOP amlodipine 5 mg. use this dose instead., # 30 tablet, Refills 11, Tot. Refills 11, Maintenance, 11/22/20 16:52:00 EST, Route to Pharmacy Electronically, [facility]/pharmacy #[id number], label all scripts in KENY[place],... Start Date: 11/22/20 Stop Date: 11/17/21 Status: Ordered azelastine 0.05% ophthalmic solution 1 drops, Eyes, Both, 2 times a day, PRN for allergy symptoms, # 6 mL, 6 Refills, Maintenance, 01/13/21 14:54:00 EDT, [facility]/pharmacy #[id number], Label in Malian, 1 drops Eyes, Both 2 times a day,PRN:for allergy symptoms, 159, cm, 01/04/21 9:23:00 EDT, Height... Start Date: 01/13/21 Status: Ordered diclofenac 3% topical gel 1 application, Topically, 2 times a day, # 100 Gm, 0 Refills, Maintenance, 04/28/21 17:22:00 EDT, Gel, [facility]/pharmacy #[id number], Partial fill upon patient request if the prescription is for a schedule II opioid drug., 1 application Topically 2 times a day,... Start Date: 04/28/21 Status: Ordered Flonase 50 mcg/inh nasal spray 1 sprays, Nares, Both, Daily, # 16 Gm, 1 Refills, Maintenance, 06/16/20 18:04:00 EDT, [place], [facility]/pharmacy #[id number], 159, cm, 06/08/20 13:31:00 EDT, Height Start Date: 06/16/20 Status: Ordered multivitamin Multiple Vitamins oral capsule 1 capsule, By Mouth, Daily, # 90 capsule, 1 Refills, Maintenance, 02/06/21 14:59:00 EDT, Capsule, [facility]/pharmacy #[id number], 1 capsule By Mouth Daily, 159, cm, 01/04/21 9:23:00 EDT, Height, 78, kg, 01/02/2116:06:00 EDT, Dry Weight Start Date: 02/06/21 Status: Ordered omeprazole 40 mg oral enteric coated capsule 1 capsule = 40 mg, By Mouth, 2 times a day, # 60 capsule, 2 Refills, Maintenance, 04/13/21 10:31:00EDT, EC Capsule, [facility]/pharmacy #[id number], Partial fill upon patient request if [...] 0 Refills, Maintenance, 04/28/21 17:18:00 EDT, Capsule, [facility]/pharmacy #[id number], puerto rican labeling, 159, cm, 04/28/2115:46:00 EDT, Height, 78, kg, 01/01/21 16:06:00 EDT... Start Date: 04/28/21 Stop Date: 05/01/21 Status: Ordered Tums 500 mg oral tablet, chewable 500 mg, 1, tablet, Chew, 2 times a day, # 60 tablet, Refills 5, Tot. Refills 5, Maintenance, 12/16/20 14:32:00 EST, Route to Pharmacy Electronically, [facility]/pharmacy #[id number], 159, cm, 12/16/20 13:47:00 EST, Height, 74.1, kg, 10/20/20 16:18:00 EST, Dry Weight Start Date: 12/16/20 Status: Ordered Problem List Condition Effective Dates Status Health Status Inform ant Hematuria(Confirmed) 1 Active Chronic back pain(Confirmed) Active Dyslipidemia(Confirmed) Active h/o allergic rhinitis(Confirmed) Active Illiteracy(Confirmed) Active Dyspepsia(Confirmed) Active Disc displacement(Confirmed) Active Onychomycosis(Confirmed) Active [facility]/CC-Serena Purcell-[phone]/[facility], Active Care Coordination(Confirmed) Active Muscle spasm(Confirmed) Active Tubular adenoma of colon - d ue 2021(Confirmed) 2 11/2015 Active 1, gross 2-2014, had cystoscopy 2014 Social History Social History Type Response Smoking Status Never smoker entered on: 08/23/16 Sex
--- OUTSIDE RECORDS SUMMARY | 2023-06-10 06:22 | XMS_ITS | Continuity of Care Document ---
Author Name Unknown Organization [facility] Address [address] [place] [address]- Care Team Providers Care Rollway Man Name Role Phone Samuel Ogden MD Primary Care Physician [phone] Encounter [facility] Date(s): 10/23/19 - 11/02/19 [facility] [address] [place] [address]- [facility] Attending Physician: AdmViky daily Admitting Physician: AdmtrViky Referring Physician: Admtr, Ar8 Allergies, Adverse Reactions, Alerts Substance Reaction Severity Status penicillins Active Immunizations Given and Recorded Vaccine Date Status Refusal Reason influenza virus vaccine, inactivated 07/15/19 Give n influenza virus vaccine, inactivated 1 10/12/10 Gi jocy tetanus/diphtheria/pertussis, acel(Tdap) 2 10/12/10 Given 1Admin Note: VIS given 05/30/10, Senegalese form 2Admin Note: VIS given, 08/2008, Senegalese form Medications Artificial Tears preserved solution 1 drops, Eyes, Both, 2 times a day, PRN for dry eyes, # 10 mL, 0 Refills, Maintenance, 10/19/19 14:27:00 EST, [facility], 1 drops Eyes, Both 2 times a day,PRN:for dry eyes, 159, cm, 10/19/19 13:35:00 EST, Height Start Date: 10/19/19 Status: Ordered loratadine 10 mg oral tablet 10 mg, 1, tablet, By Mouth, Daily, # 30 tablet, Refills 5, Tot. Refills 5, Maintenance, 03/05/19 16:15:54 EDT, Route to Pharmacy Electronically, [id number], [facility]/pharmacy #[id number] Start Date: 03/05/19 Stop Date: 05/28/19 Status: Ordered methocarbamol 750 mg oral tablet 2 tablet = 1,500 mg, By Mouth, 2 times a day, PRN as needed for pain, # 24 tablet, 0 Refills, Maintenance, 10/19/19 14:27:00 EST, [facility] 159, cm, 10/19/19 13:35:00 EST, Height Start Date: 10/19/19 Status: Ordered Mylanta Maximum Strength oral suspension 20 mL, By Mouth, 4 times a day, between meals and at bedtime, # 240 mL, 1 Refills, Maintenance, 10/19/19 14:27:00 EST, Suspension, [facility] 20 mL By Mouth 4 times a day,Instr:between meals and at bedtime, 159, cm, 10/19/19 13:35:00... Start Date: 10/19/19 Status: Ordered nabumetone 500 mg oral tablet 1 tablet = 500 mg, By Mouth, 2 times a day, PRN Pain , Mild, Only as needed with food. for back pain. instructions in upper sorbian., # 60 tablet, 0 Refills, Maintenance, 10/02/19 15:45:29 EST, Tablet, [facility]/pharmacy #[id number], 159, cm, 07/15/19 15:04:09 EDT, Height Start Date: 10/02/19 Stop Date: 11/01/19 Status: Ordered omeprazole 40 mg oral enteric coated capsule 1 capsule = 40 mg, By Mouth, Daily, # 30 capsule, 3 Refills, Maintenance, 10/29/19 17:25:00 EST, ECCapsule, [facility]/pharmacy #[id number], 159, cm, 10/19/19 13:35:00 EST, Height Start Date: 10/29/19 Stop Date: 02/26/20 Status: Ordered prazosin 2 mg oral capsule 1 capsule = 2 mg, By Mouth, Daily at bedtime, # 90 capsule, 0 Refills, Maintenance, 07/15/19 15:05:23 EDT, Capsule Start Date: 07/15/19 Status: Ordered QUEtiapine 200 mg oral tablet 200 mg, 1, tablet, By Mouth, Daily at bedtime, # 180 tablet, Refills 0, Tot. Refills 0, Maintenance, 07/15/19 15:05:28 EDT, Do Not Route Start Date: 07/15/19 Status: Ordered Problem List Condition Effective Dates Status Health Status Inform ant Hematuria(Confirmed) 1 Active Chronic back pain(Confirmed) Active Depression(Confirmed) Active Dyslipidemia(Confirmed) Active h/o allergic rhinitis(Confirmed) Active Illiteracy(Confirmed) Active Disc displacement(Confirmed) Active *[facility], [facility], (Confirmed) 08/06/18 Active [facility]/Tashia Purcell-[phone]/[facility], Active Care Coordination(Confirmed) Active Tubular adenoma of colon(Confirmed) 2 11/2015 Active lul Vikc -2014, had cystoscopy 2014 Social History Social History Type Response Smoking Status Never smoker entered on: 08/23/16 Sex
--- OUTSIDE RECORDS SUMMARY | 2023-06-10 06:23 | XMS_ITS | Continuity of Care Document ---
Author Name Unknown Organization [facility] Address [address] [place] [address]- Care Team Providers Care Handhole Machine Operator Name Role Phone Raiza KRISHNA, Trenton Primary Care Physician [phone] [facility] Date(s): 01/15/23 - 02/14/23 [facility] [address] [place] [id number] Allergies, Adverse Reactions, Alerts Substance [...] inactivated 1 10/12/10 Gi jocy SARS-CoV-2 mRNA ([id number]) vax 06/13/22 Recorded SARS-CoV-2 (COVID-19) mRNA BNT-162b2 [...] 11/01/22 9:44:00 EST, [id number] Partial fill upon patient request ifthe prescription is for a schedule II opioid drug.,... Start Date: 11/01/22 Status: Ordered Artificial Tears preserved solution 1 drops, Eyes, Both, 2 times a day, PRN for dry eyes, # 30 mL, 2 Refills, Maintenance, 02/04/23 9:35:00 EDT, Solution, [facility]/pharmacy #[id number], Partial fill upon patient request if the prescription is fora schedule II opioid drug., 1 drops Eyes, Both 2 ti... Start Date: 02/04/23 Status: Ordered Ativan 0.5 mg oral tablet 1 tablet = 0.5 mg, By Mouth, Once, burkinan label, take 30 mins to 1 hr before flight, # 2 tablet, 0Refills, Soft Stop, 10/08/22 17:54:00 EST, Tablet, [id number], Partial fill upon patient request if the prescription is for a schedule II opioi... Start Date: 10/08/22 Status: Ordered atorvastatin 40 mg oral tablet 1 tablet = 40 mg, By Mouth, Daily, # 30 tablet, 5 Refills, Maintenance, 12/19/22 14:49:00 EST, Tablet, [facility], Partial fill upon patient request if the prescription is for a schedule II opioid drug., 162.56, cm, 12/19/22 14:01:00 E... Start Date: 12/19/22 Status: Ordered azelastine 137 mcg/inh (0.1%) nasal spray 0 Refills, Maintenance, 12/07/21 11:16:00 EST, via Dr Glover, machine stapler Start Date: 12/07/21 Status: Ordered baclofen 10 mg oral tablet See Instructions, TOME JOAN TABLETA POR VIA ORAL KARLA VECES AL MONICA, # 63 tablet, Refills 0, Instructions Replace Required Details, Route to Pharmacy Electronically, [facility] STORE [id number], 157.5, cm, 04/10/22 10:29:00 EDT, Height, 75, [...] 2 times a day, Print instructions in burkinan use only for toenails, # 60 mL, 1 Refills, Maintenance, 01/18/23 10:15:00 EDT, Suspension, [facility]/pharmacy #[id number], Partial fill uponpatient request if the prescription is for a sched... Start Date: 01/18/23 Status: Ordered [facility] LUBRICANT EYE DROPS Maintenance, 12/07/21 11:16:00 EST, via Dr Glover, machine stapler, Supply Start Date: 12/07/21 Status: Ordered diclofenac 1% topical gel 1 application, Topically, 4 times a day, # 100 Gm, 5 Refills, Maintenance, 12/07/22 11:37:00 EST, Gel, [facility]/pharmacy #[id number], Partial fill [...] 2 Refills, Maintenance, 06/24/22 12:04:00 EDT, Tablet, [facility]/pharmacy #[id number], Partial fill upon patient request if the prescription is for a schedule... Start Date: 06/24/22 Stop Date: 09/22/22 Status: Ordered Flomax 0.4 mg oral capsule 0.4 mg, 1, capsule, By Mouth, Daily, # 30 capsule, Refills 5, Tot. Refills 5, Maintenance, 11/07/2310:08:00 EST, Route to Pharmacy Electronically, [facility]/pharmacy #[id number], Partial fill upon patient request if the prescription is for a schedule II opioid d... Start Date: 11/07/22 Status: Ordered ketoconazole 2% topical cream 1 application, Topically, Daily, Print instructions in burkinan Use only on feet, # 60 Gm, 1 Refills, Maintenance, 01/18/23 10:16:00 EDT, Cream, [facility]/pharmacy #[id number], Partial fill [...] Maintenance, 12/07/21 11:16:00 EST, via Dr Glover, machine stapler, Supply Start Date: 12/07/21 Status: Ordered minoxidil [...] EDT, He... Start Date: 06/11/22 Status: Ordered [place]-3 1000 mg oral capsule via psychiatry, 0 Refills, Maintenance, 12/07/21 11:13:00 EST, Partial fill upon patient request ifthe prescription is for a schedule II opioid drug. Start Date: 12/07/21 Status: Ordered omeprazole 40 mg oral enteric coated capsule See Instructions, JUAN RAMON ARTA DOS VECES AL MONICA, # 180 capsule, 1 Refills, Maintenance, 09/05/22 10:55:00 EST, [id number], 162.56, cm, 07/12/22 10:42:00 EDT, Height, 76.5, [...] 15:27:00 EDT, Tablet, [id number], label in Kazakh, 162.56,cm, 01/14/23 15:01:00 EDT, Height, 76.5, kg, [...] mL, 4 Refills, Maintenance, 02/28/22 16:09:00 EDT, [place], [id number], Partial fill upon patient request [...] displacement Confirmed Active Onychomycosis Confirmed Active *N/[facility]/CC-Patricia [phone]/[facility], Active Care Coordination [...] Team Personnel Name: Raiza KRISHNA, Trenton Position: [facility] Resident Member Role: PCP Address: Address: [address] [place] [address]- Care Team Related Persons Name: AJAY BE Address: [place] [address] Name: KAMALJIT FUCHS Address: home [address] [place] [address] [place] [id number]
--- OUTSIDE RECORDS SUMMARY | 2023-06-10 06:23 | XMS_ITS | Continuity of Care Document ---
Author Name Unknown Organization [facility] Address [address] [place] [address]- Care Team Providers Care Machine Egg Washer Name Role Phone Raiza KRISHNA, Trenton Primary Care Physician [facility] Date(s): 02/08/22 - 03/10/22 [facility] [address] [place] [id number] Allergies, Adverse Reactions, Alerts Substance Reaction [...] 10/12/10 Given 1Admin Note: VIS given 05/30/10, Libyan form 2Admin Note: VIS given, 08/2008, Libyan form Medications amLODIPine 2.5 mg oral tablet 2.5 mg, 1, tablet, By Mouth, Daily, ; STOP amlodipine 5 mg. use this dose instead., # 30 tablet, Refills 5, Tot. Refills 5, Maintenance, 11/17/21 16:52:00 EST, Route to Pharmacy Electronically,[facility]/pharmacy #[id number], label all scripts in SWEDISH, 1... Start Date: 11/17/21 Stop Date: 05/16/22 Status: Ordered azelastine 0.05% ophthalmic solution 1 drops, Eyes, Both, 2 times a day, PRN for allergy symptoms, For eye allergies, # 6 mL, 6 Refills,Maintenance, 02/28/22 16:27:00 EDT, [facility]/pharmacy #[id number], Label in Libyan, 1 drops Eyes, Both 2 times a day,PRN:for allergy symptoms,Instr:For eye aller... Start Date: 02/28/22 Status: Ordered azelastine 137 mcg/inh (0.1%) nasal spray 0 Refills, Maintenance, 12/07/21 11:16:00 EST, via Dr Glovre, station chief Start Date: 12/07/21 Status: Ordered buPROPion 150 [...] 1 Refills, Maintenance, 08/28/21 14:44:00 EST, Solution, [facility]/pharmacy #[id number], Partial fill upon patient request if the prescription is for... Start Date: 08/28/21 Status: Ordered [facility] LUBRICANT EYE DROPS Maintenance, 12/07/21 11:16:00 EST, via Dr Glover, station chief, Supply Start Date: 12/07/21 Status: Ordered cyclobenzaprine 5 mg oral tablet 0 Refills, Maintenance, 09/28/21 13:55:00 EST, Partial fill upon patient request if the prescription is for a schedule II opioid drug. Start Date: 09/28/21 Status: Ordered diclofenac 3% topical gel 1 application, Topically, 2 times a day, # 100 Gm, 0 Refills, Maintenance, 04/28/21 17:22:00 EDT, Gel, [facility]/pharmacy #[id number], Partial fill upon patient request if the prescription is for a schedule II opioid drug., 1 application Topically 2 times a day,... Start Date: 04/28/21 Status: Ordered Flonase 50 mcg/inh nasal spray 1 sprays, Nares, Both, Daily, # 16 Gm, 1 Refills, Maintenance, 11/30/21 10:55:00 EST, [place], [facility]/pharmacy #[id number], 1 sprays Nares, Both Daily, 159, cm, 11/30/21 9:50:00 EST, Height, 78, kg, 01/01/21 16:06:00 EDT, Dry Weight Start Date: 11/30/21 Status: Ordered loratadine 10 mg oral tablet 10 mg, 1, tablet, By Mouth, Daily, # 30 tablet, Refills 5, Tot. Refills 5, Maintenance, 12/18/21 10:54:00 EST, Route to Pharmacy Electronically, [facility]/pharmacy #[id number], Partial fill upon patient request if the prescription is for a schedule II opioid drug... Start Date: 12/18/21 Status: Ordered LUBRICNT EYE JESSICA 0.4-0.3% Maintenance, 12/07/21 11:16:00 EST, via Dr Glover, station chief, Supply Start Date: 12/07/21 Status: Ordered minoxidil 2% topical solution 1 mL = 0.02 Gm, Topically, 2 times a day, # 60 mL, 2 Refills, Maintenance, 02/28/22 16:27:00 EDT, Solution, [facility]/pharmacy #[id number], Partial fill upon patient request if the prescription is for a scheduleII opioid drug., 1 mL Topically 2 times a day, 159,... Start Date: 02/28/22 Status: Ordered multivitamin Multiple Vitamins oral capsule 1 capsule, By Mouth, Daily, # 90 capsule, 0 Refills, Maintenance, 10/18/21 22:09:00 EST, Capsule, [id number], 1 capsule By Mouth Daily, 159, cm, 10/05/21 13:26:00 EST, Height, 78, kg, 01/01/21 16:06:00 EDT, Dry Weight Start Date: 10/18/21 Status: Ordered NuLYTELY with Flavor Packs oral powder for reconstitution 240 mL, By Mouth, Every 10 minutes, # 1 each, 0 Refills, Maintenance, 09/21/21 9:33:00 EST, REC Powder, [facility], Partial fill upon patient request if the prescription is for a schedule II opioid drug., 240 mL By Mouth Every 10 minut... Start Date: 09/21/21 Status: Ordered [place]-3 1000 mg oral capsule via psychiatry, 0 Refills, Maintenance, 12/07/21 11:13:00 EST, Partial fill upon patient request ifthe prescription is for a schedule II opioid drug. Start Date: 12/07/21 Status: Ordered omeprazole 40 mg oral enteric coated capsule 1 capsule = 40 mg, By Mouth, 2 times a day, # 60 capsule, 2 Refills, Maintenance, 04/13/21 10:31:00EDT, EC Capsule, [facility]/pharmacy #[id number], Partial fill upon patient request if the prescription is for aschedule II opioid drug., 159, cm, 01/04/21 9:23:00... Start Date: 04/13/21 Stop Date: 07/12/21 Status: Ordered Lynette-Colace 50 mg-8.6 mg oral tablet 2 tablet, By Mouth, Daily at bedtime, PRN Constipation, For constipation, # 60 tablet, 0 Refills, Maintenance, 01/02/22 20:52:00 EDT, Tablet, [facility]/pharmacy #[id number], Partial fill upon patient request if [...] mL, 4 Refills, Maintenance, 02/28/22 16:09:00 EDT, [place], [facility]/pharmacy #[id number], Partial fill upon patient request if the prescription is for a schedule II opioid drug., 1 sprays N... Start Date: 02/28/22 Status: Ordered tamsulosin 0.4 mg oral capsule 0.4 mg, 1, capsule, By Mouth, Daily, at night (print label in faroese), # 30 capsule, Refills 1, Tot. Refills 1, Maintenance, 09/28/21 14:03:00 EST, Route to Pharmacy Electronically, [facility], Partial fill upon patient request if the... Start Date: 09/28/21 Status: Ordered Tears Naturale Forte preserved ophthalmic solution 1 drops, Eyes, Both, 2 times a day, PRN for dry eyes, # 30 mL, 0 Refills, Maintenance, 08/28/21 14:52:00 EST, Solution, [facility]/pharmacy #[id number], Partial fill upon patient request if the prescription is for a schedule II opioid drug., 1 drops Eyes, Both 2 t... Start Date: 08/28/21 Status: Ordered tiZANidine 2 mg oral capsule 1 capsule = 2 mg, By Mouth, 3 times a day, PRN as needed for muscle spasm, # 9 capsule, 0 Refills, Maintenance, 04/28/21 17:18:00 EDT, Capsule, [facility]/pharmacy #[id number], faroese labeling, 159, cm, 04/28/2115:46:00 EDT, Height, 78, kg, 01/01/21 16:06:00 EDT... Start Date: 04/28/21 Stop Date: 05/01/21 Status: Ordered Tums 500 mg oral tablet, chewable 500 mg, 1, tablet, Chew, 2 times a day, # 60 tablet, Refills 5, Tot. Refills 5, Maintenance, 12/16/20 14:32:00 EST, Route to Pharmacy Electronically, [facility]/pharmacy #[id number], 159, cm, 12/16/20 13:47:00 EST, Height, 74.1, kg, 10/20/20 16:18:00 EST, Dry Weight Start Date: 12/16/20 Status: Ordered Problem List Condition Effective Dates Status Health Status Inform ant Hematuria(Confirmed) 1 Active Chronic back pain(Confirmed) Active Dyslipidemia(Confirmed) Active Allergic rhinitis(Confirmed) Active Illiteracy(Confirmed) Active Dyspepsia(Confirmed) Active Disc displacement(Confirmed) Active Obese class I(Confirmed) Active Onychomycosis(Confirmed) Active *[facility]/CC-Patricia [phone]/[facility], Active Care Coordination(Confirmed) Active Nasal septum perforation, h/ o cocaine(Confirmed) Active Muscle spasm(Confirmed) Active Tubular adenoma of colon - d ue 2021(Confirmed) 2 11/2015 Active 1lul 2-2014, had cystoscopy 2014 Social History Social History Type Response Smoking Status Never smoker entered on: 08/23/16 Sex
--- OUTSIDE RECORDS SUMMARY | 2023-06-10 06:23 | XMS_ITS | Continuity of Care Document ---
Author Name Unknown Organization [facility] Address [address] [place] [address]- Care Team Providers Care Management Retail Intern Name Role Phone Raiza KRISHNA, [place] Primary Care Physician Encounter [facility] Date(s): 01/18/23 - 02/17/23 [facility] [address] [place] [id number] Allergies, Adverse Reactions, Alerts Substance Reaction [...] inactivated 1 10/12/10 Gi jocy SARS-CoV-2 mRNA ([id number]) vax 06/13/22 Recorded SARS-CoV-2 (COVID-19) mRNA BNT-162b2 vac 09/13/21 Recorded SARS-CoV-2 (COVID-19) mRNA BNT-162b2 vac 02/27/21 Given SARS-CoV-2 (COVID-19) mRNA BNT-162b2 vac 02/06/21 Given tetanus-diphtheria toxoids (Td) 11/23/20 Given tetanus/diphtheria/pertussis, acel(Tdap) 2 10/12/10 Given 1Admin Note: VIS given 05/30/10, Chinese form 2Admin Note: VIS given, 08/2008, Chinese form Medications amLODIPine 5 mg oral tablet 5 mg, 1, tablet, By Mouth, Daily, # 90 tablet, Refills 3, Tot. Refills 3, Maintenance, 11/01/22 9:44:00 EST, [id number] Partial fill upon patient request ifthe prescription is for a schedule II opioid drug.,... Start Date: 11/01/22 Status: Ordered Artificial Tears preserved solution 1 drops, Eyes, Both, 2 times a day, PRN for dry eyes, # 30 mL, 2 Refills, Maintenance, 02/04/23 9:35:00 EDT, Solution, [facility]/pharmacy #[id number], Partial fill upon patient request if the prescription is fora schedule II opioid drug., 1 drops Eyes, Both 2 ti... Start Date: 02/04/23 Status: Ordered Ativan 0.5 mg oral tablet 1 tablet = 0.5 mg, By Mouth, Once, bahraini label, take 30 mins to 1 hr before flight, # 2 tablet, 0Refills, Soft Stop, 10/08/22 17:54:00 EST, Tablet, [id number], Partial fill upon patient request if the prescription is for a schedule II opioi... Start Date: 10/08/22 Status: Ordered atorvastatin 40 mg oral tablet 1 tablet = 40 mg, By Mouth, Daily, # 30 tablet, 5 Refills, Maintenance, 12/19/22 14:49:00 EST, Tablet, [facility], Partial fill upon patient request if the prescription is for a schedule II opioid drug., 162.56, cm, 12/19/22 14:01:00 E... Start Date: 12/19/22 Status: Ordered azelastine 137 mcg/inh (0.1%) nasal spray 0 Refills, Maintenance, 12/07/21 11:16:00 EST, via Dr Glover, surg rn Start Date: 12/07/21 Status: Ordered baclofen 10 mg oral tablet See Instructions, TOME JOAN TABLETA POR VIA ORAL KARLA VECES AL MONICA, # 63 tablet, Refills 0, Instructions Replace Required Details, Route to Pharmacy Electronically, [id number], 157.5, cm, 04/10/22 10:29:00 EDT, Height, 75, [...] 2 times a day, Print instructions in bahraini use only for toenails, # 60 mL, 1 Refills, Maintenance, 01/18/23 10:15:00 EDT, Suspension, [facility]/pharmacy #[id number], Partial fill uponpatient request if the prescription is for a sched... Start Date: 01/18/23 Status: Ordered [facility] LUBRICANT EYE DROPS Maintenance, 12/07/21 11:16:00 EST, via Dr Glover, surg rn, Supply Start Date: 12/07/21 Status: Ordered diclofenac 1% topical gel 1 application, Topically, 4 times a day, # 100 Gm, 5 Refills, Maintenance, 12/07/22 11:37:00 EST, Gel, [facility]/pharmacy #[id number], Partial fill upon patient request if the prescription is for a schedule II opioid drug., 162.56, cm, 12/07/22 10:29:00 EST, [place]... Start Date: 12/07/22 Status: Ordered famotidine 40 mg oral tablet 1 tablet = 40 mg, By Mouth, 2 times a day, take 2x/day for 2 weeks then decrease to daily, # 60 tablet, 2 Refills, Maintenance, 06/24/22 12:04:00 EDT, Tablet, [facility]/pharmacy #[id number], Partial fill upon patient request if the prescription is for a schedule... Start Date: 06/24/22 Stop Date: 09/22/22 Status: Ordered Flomax 0.4 mg oral capsule 0.4 mg, 1, capsule, By Mouth, Daily, # 30 capsule, Refills 5, Tot. Refills 5, Maintenance, 11/07/2310:08:00 EST, Route to Pharmacy Electronically, [facility]/pharmacy #[id number], Partial fill upon patient request if [...] 1 application, Topically, Daily, Print instructions in bahraini Use only on feet, # 60 Gm, [...] Maintenance, 12/07/21 11:16:00 EST, via Dr Glover, surg rn, Supply Start Date: 12/07/21 Status: Ordered minoxidil [...] EDT, He... Start Date: 06/11/22 Status: Ordered [place]-3 1000 mg oral capsule via psychiatry, 0 Refills, Maintenance, 12/07/21 11:13:00 EST, Partial fill upon patient request ifthe prescription is for a schedule II opioid drug. Start Date: 12/07/21 Status: Ordered omeprazole 40 mg oral enteric coated capsule See Instructions, JUAN RAMON ROJASES AL MONICA, # 180 capsule, 1 Refills, Maintenance, 09/05/22 10:55:00 EST, [id number], 162.56, cm, 07/12/22 10:42:00 EDT, Height, 76.5, [...] 11 Refills, Maintenance, 01/14/23 15:27:00 EDT, Tablet, [facility]/pharmacy #[id number], label in Chinese, 162.56,cm, 01/14/23 15:01:00 EDT, Height, 76.5, kg, ... Start Date: 01/14/23 Stop Date: 12/29/25 Status: Ordered Saline Mist 0.65% nasal spray 2 sprays, Nares, Both, 4 times a day, # 60 mL, 1 Refills, Maintenance, 02/08/23 13:50:00 EDT, [facility]/pharmacy #[id number], Partial fill upon patient request if the prescription is for a schedule II opioid drug., 2 sprays Nares, Both 4 times a day, 162.56, cm,... Start Date: 02/08/23 Status: Ordered Simply Saline 0.9% spray 1 sprays, Nares, Both, Every 30 minutes, PRN for dry nasal passages, # 45 mL, 4 Refills, Maintenance, 02/28/22 16:09:00 EDT, [place], [facility]/pharmacy #[id number], Partial fill upon patient request if the prescription is for a schedule II opioid drug., 1 sprays N... Start Date: 02/28/22 Status: Ordered Tears Naturale Forte preserved ophthalmic solution 1 drops, Eyes, Both, 2 times a day, PRN for dry eyes, # 30 mL, 0 Refills, Maintenance, 11/30/22 11:37:00 EST, Solution, [facility]/pharmacy #[id number], Partial fill upon patient request if [...] Active Onychomycosis Confirmed Active *N/[facility]/CC-Patricia [phone]/He alth Assisted, Active Care Coordination Confirmed Active Nasal [...] Team Personnel Name: Raiza KRISHNA, [place] Position: [facility] Resident Member Role: PCP Address: Address: [address] [place] [address] [place] [address]- Care Team Related Persons Name: AJAY BE Address: [place] [address] Name: KAMALJIT FUCHS Address: home [address] [place] [address] [address] [place] [id number]
--- OUTSIDE RECORDS SUMMARY | 2023-06-10 06:23 | XMS_ITS | Continuity of Care Document ---
Author Name Unknown Organization [facility] Address [address] [place] [address]- Care Team Providers Care Exerciser Horse Name Role Phone [place] Eastman MD Primary Care Physician Encounter [facility] [id number] Date(s): 04/03/22 - 05/03/[address] [address]- Attending Physician: Viky Garcia Admitting Physician: AdmtrViky [...] 10/12/10 Given 1Admin Note: VIS given 05/30/10, Chadian form 2Admin Note: VIS given, 08/2008, Chadian form Medications amLODIPine 2.5 mg oral tablet 2.5 mg, 1, tablet, By Mouth, Daily, ; STOP amlodipine 5 mg. use this dose instead., # 30 tablet, Refills 5, Tot. Refills 5, Maintenance, 11/17/21 16:52:00 EST, Route to Pharmacy Electronically,[facility]/pharmacy #[id number], label all scripts in [place], 1... Start Date: 11/17/21 Stop Date: 05/16/22 Status: Ordered azelastine 0.05% ophthalmic solution 1 drops, Eyes, Both, 2 times a day, PRN for allergy symptoms, For eye allergies, # 6 mL, 6 Refills,Maintenance, 02/28/22 16:27:00 EDT, [facility]/pharmacy #[id number], Label in Chadian, 1 drops Eyes, Both 2 times a day,PRN:for allergy symptoms,Instr:For eye aller... Start Date: 02/28/22 Status: Ordered azelastine 137 mcg/inh (0.1%) nasal spray 0 Refills, Maintenance, 12/07/21 11:16:00 EST, via Dr Glover, outbound call center representative Start Date: 12/07/21 Status: Ordered baclofen 10 mg oral tablet See Instructions, JUAN RAMON JOAN TABLETA POR VIA ORAL KARLA VECES AL MONICA, # 63 tablet, Refills 0, Instructions Replace Required Details, Route to Pharmacy Electronically, [id number], 157.5, cm, 04/10/22 10:29:00 EDT, Height, 75, [...] 1 Refills, Maintenance, 08/28/21 14:44:00 EST, Solution, [facility]/pharmacy #[id number], Partial fill upon patient request if the prescription is for... Start Date: 08/28/21 Status: Ordered Crutches See Instructions, # 1 kit, Maintenance, use for 2 weeks dx: leg injury, 03/27/22 10:10:00 EDT, Supply, 157.5, cm, 03/27/22 9:45:00 EDT, Height, 75, kg, 03/25/22 2:00:00 EDT, Dry Weight Start Date: 03/27/22 Status: Ordered [facility] LUBRICANT EYE DROPS Maintenance, 12/07/21 11:16:00 EST, via Dr Glover, outbound call center representative, Supply Start Date: 12/07/21 Status: Ordered cyclobenzaprine 5 mg oral tablet 0 Refills, Maintenance, 09/28/21 13:55:00 EST, Partial fill upon patient request if the prescription is for a schedule II opioid drug. Start Date: 09/28/21 Status: Ordered diclofenac 3% topical gel 1 application, Topically, 2 times a day, # 100 Gm, 0 Refills, Maintenance, 04/28/21 17:22:00 EDT, Gel, [facility]/pharmacy #[id number], Partial fill upon patient request if the prescription is for a schedule II opioid drug., 1 application Topically 2 times a day,... Start Date: 04/28/21 Status: Ordered Flonase 50 mcg/inh nasal spray 1 sprays, Nares, Both, Daily, # 16 Gm, 1 Refills, Maintenance, 11/30/21 10:55:00 EST, [place], [facility]/pharmacy #[id number], 1 sprays Nares, Both [...] 12/18/21 10:54:00 EST, Route to Pharmacy Electronically, [facility]/pharmacy #[id number], Partial fill upon patient request if the prescription is for a schedule II opioid drug... Start Date: 12/18/21 Status: Ordered LUBRICNT EYE JESSICA 0.4-0.3% Maintenance, 12/07/21 11:16:00 EST, via Dr Glover, outbound call center representative, Supply Start Date: 12/07/21 Status: Ordered minoxidil 2% topical solution 1 mL = 0.02 Gm, Topically, 2 times a day, # 60 mL, 2 Refills, Maintenance, 02/28/22 16:27:00 EDT, Solution, [facility]/pharmacy #[id number], Partial fill upon patient request if the prescription is for a scheduleII opioid drug., 1 mL Topically 2 times a day, 159,... Start Date: 02/28/22 Status: Ordered multivitamin Multiple Vitamins oral capsule 1 capsule, By Mouth, Daily, # 90 capsule, 1 Refills, Maintenance, 03/22/22 15:18:00 EDT, Capsule, [facility]/pharmacy #[id number], 1 capsule By Mouth Daily, 159, cm, 03/22/22 10:39:00 EDT, Height, 78, kg, 01/01/21 16:06:00 EDT, Dry Weight Start Date: 03/22/22 Status: Ordered NuLYTELY with Flavor Packs oral powder for reconstitution 240 mL, By Mouth, Every 10 minutes, # 1 each, 0 Refills, Maintenance, 09/21/21 9:33:00 EST, [facility] Powder[facility] fill upon patient request if the prescription is for a schedule II opioid drug., 240 mL By Mouth Every 10 minut... Start Date: 09/21/21 Status: Ordered [place]-3 1000 mg oral capsule via psychiatry, 0 [...] 0 Refills, Maintenance, 01/02/22 20:52:00 EDT, Tablet, [facility]/pharmacy #[id number], Partial fill upon patient [...] mL, 4 Refills, Maintenance, 02/28/22 16:09:00 EDT, [place], [facility]/pharmacy #[id number], Partial fill upon patient request if the prescription is for a schedule II opioid drug., 1 sprays N... Start Date: 02/28/22 Status: Ordered tamsulosin 0.4 mg oral capsule 0.4 mg, 1, capsule, By Mouth, Daily, at night (print label in finnish), # 30 capsule, Refills 1, Tot. Refills 1, Maintenance, 09/28/21 14:03:00 EST, Route to Pharmacy Electronically, [facility], Partial fill upon patient request if the... Start Date: 09/28/21 Status: Ordered Tears Naturale Forte preserved ophthalmic solution 1 drops, Eyes, Both, 2 times a day, PRN for dry eyes, # 30 mL, 0 Refills, Maintenance, 08/28/21 14:52:00 EST, Solution, [facility]/pharmacy #[id number], Partial fill upon patient [...] 12/16/20 14:32:00 EST, Route to Pharmacy Electronically, [facility]/pharmacy #[id number], 159, cm, 12/16/20 13:47:00 [...] class I(Confirmed) Active Onychomycosis(Confirmed) Active *[facility]/CC-Patricia [phone]/Health [facility], Active Care Coordination(Confirmed) Active Nasal septum perforation, h/ o cocaine(Confirmed) Active Muscle spasm(Confirmed) Active Tubular adenoma of colon - d ue 2021(Confirmed) 2 11/2015 Active 1lul 2-2014, had cystoscopy 2014 Social History Social History Type Response Smoking Status Never smoker entered on: 08/23/16 Sex
--- OUTSIDE RECORDS SUMMARY | 2023-06-10 06:23 | XMS_ITS | Continuity of Care Document ---
Author Name Unknown Organization [facility] Address [address] [place] [address]- Care Team Providers Care Order Entry Administrator Name Role Phone Raiza KRISHNA, [place] Primary Care Physician Encounter [facility] Date(s): 05/01/21 - 07/07/21 [facility] [address], [place] [address] Attending Physician: Lloyd Santiago MD Admitting Physician: Lloyd Santiago MD Allergies, Adverse Reactions, Alerts Substance Reaction [...] 10/12/10 Given 1Admin Note: VIS given 05/30/10, [place] Islander form 2Admin Note: VIS given, 08/2008, [place] Islander form Medications amLODIPine 2.5 mg oral tablet 2.5 mg, 1, tablet, By Mouth, Daily, ; STOP amlodipine 5 mg. use this dose instead., # 30 tablet, Refills 11, Tot. Refills 11, Maintenance, 11/22/20 16:52:00 EST, Route to Pharmacy Electronically, [facility]/pharmacy #[id number], label all scripts in MONGOL[place],... Start Date: 11/22/20 Stop Date: 11/17/21 Status: Ordered azelastine 0.05% ophthalmic solution 1 drops, Eyes, Both, 2 times a day, PRN for allergy symptoms, # 6 mL, 6 Refills, Maintenance, 01/13/21 14:54:00 EDT, [facility]/pharmacy #[id number], Label in [place] Islander, 1 drops Eyes, Both 2 times a day,PRN:for allergy symptoms, 159, cm, 01/04/21 9:23:00 EDT, Height... Start Date: 01/13/21 Status: Ordered diclofenac 3% topical gel 1 application, Topically, 2 times a day, # 100 Gm, 0 Refills, Maintenance, 04/28/21 17:22:00 EDT, Gel, [facility]/pharmacy #[id number], Partial fill upon patient request if the prescription is for a schedule II opioid drug., 1 application Topically 2 times a day,... Start Date: 04/28/21 Status: Ordered Flonase 50 mcg/inh nasal spray 1 sprays, Nares, Both, Daily, # 16 Gm, 1 Refills, Maintenance, 06/16/20 18:04:00 EDT, [place], [facility]/pharmacy #[id number], 159, cm, 06/08/20 13:31:00 EDT, Height Start Date: 06/16/20 Status: Ordered multivitamin Multiple Vitamins oral capsule 1 capsule, By Mouth, Daily, # 90 capsule, 1 Refills, Maintenance, 02/06/21 14:59:00 EDT, Capsule, [facility]/pharmacy #[id number], 1 capsule By Mouth Daily, 159, cm, 01/04/21 9:23:00 EDT, Height, 78, kg, 01/02/2116:06:00 EDT, Dry Weight Start Date: 02/06/21 Status: Ordered omeprazole 40 mg oral enteric coated capsule 1 capsule = 40 mg, By Mouth, 2 times a day, # 60 capsule, 2 Refills, Maintenance, 04/13/21 10:31:00EDT, EC Capsule, [facility]/pharmacy #[id number], Partial fill upon patient request if the prescription is for aschedule II opioid drug., 159, cm, 01/04/21 9:23:00... Start Date: 04/13/21 Stop Date: 07/12/21 Status: Ordered prazosin 2 mg oral capsule via Psychaitry, ySl Riley, 0 Refills, Maintenance, 11/22/20 16:15:00 EST, [...] 0 Refills, Maintenance, 04/28/21 17:18:00 EDT, Capsule, [facility]/pharmacy #[id number], telugu labeling, 159, cm, 04/28/2115:46:00 EDT, Height, 78, kg, 01/01/21 16:06:00 EDT... Start Date: 04/28/21 Stop Date: 05/01/21 Status: Ordered Tums 500 mg oral tablet, chewable 500 mg, 1, tablet, Chew, 2 times a day, # 60 tablet, Refills 5, Tot. Refills 5, Maintenance, 12/16/20 14:32:00 EST, Route to Pharmacy Electronically, [facility]/pharmacy #[id number], 159, cm, 12/16/20 13:47:00 EST, Height, 74.1, kg, 10/20/20 16:18:00 EST, Dry Weight Start Date: 12/16/20 Status: Ordered Problem List Condition Effective Dates Status Health Status Inform ant Hematuria(Confirmed) 1 Active Chronic back pain(Confirmed) Active Dyslipidemia(Confirmed) Active h/o allergic rhinitis(Confirmed) Active Illiteracy(Confirmed) Active Dyspepsia(Confirmed) Active Disc displacement(Confirmed) Active Onychomycosis(Confirmed) Active [facility]/CC-Serena Binh-[phone]/Health [facility], Active Care Coordination(Confirmed) Active Muscle spasm(Confirmed) Active Tubular adenoma of colon - d ue 2021(Confirmed) 2 11/2015 Active 1lul 2-2014, had cystoscopy 2014 Social History Social History Type Response Smoking Status Never smoker entered on: 08/23/16 Sex
--- OUTSIDE RECORDS SUMMARY | 2023-06-10 06:23 | XMS_ITS | Continuity of Care Document ---
Author Name Unknown Organization [facility] y Address [address] [place] [address]- Care Team Providers Care Angledozer Operator Name Role Phone Melvi KRISHNA, Samuel Palacios Primary Care Physician Encounter [facility] Date(s): 11/10/19 - 12/25/19 [facility] [address] [place] [address]- Attending Physician: Not on Staff, Attending MD Allergies, Adverse Reactions, Alerts Substance Reaction Severity Status penicillins Active Immunizations Given and Recorded Vaccine Date Status Refusal Reason influenza virus vaccine, inactivated 12/21/19 Give n influenza virus vaccine, inactivated 07/15/19 Give n influenza virus vaccine, inactivated 1 10/12/10 Gi jocy tetanus/diphtheria/pertussis, acel(Tdap) 2 10/12/10 Given 1Admin Note: VIS given 05/30/10, Tongan form 2Admin Note: VIS given, 08/2008, Tongan form Medications Artificial Tears preserved solution 1 drops, Eyes, Both, 2 times a day, PRN for dry eyes, # 10 mL, 0 Refills, Maintenance, 10/19/19 14:27:00 EST, [facility], 1 drops Eyes, Both 2 times a day,PRN:for dry eyes, 159, cm, 10/19/19 13:35:00 EST, Height Start Date: 10/19/19 Status: Ordered loratadine 10 mg oral tablet 10 mg, 1, tablet, By Mouth, Daily, # 30 tablet, Refills 2, Tot. Refills 2, Maintenance, 12/22/19 21:46:00 EST, Route to Pharmacy Electronically, [facility]/pharmacy #[id number], 159, cm, 12/21/19 13:52:00 EST, Height Start Date: 12/22/19 Stop Date: 03/15/20 Status: Ordered meloxicam 15 mg oral tablet 1 tablet = 15 mg, By Mouth, Daily, # 14 tablet, 0 Refills, Maintenance, 11/18/19 16:29:00 EST, Tablet, [facility]/pharmacy #[id number], 159, cm, 11/18/19 15:55:00 EST, Height Start Date: 11/18/19 Stop Date: 12/02/19 Status: Ordered Mylanta Maximum Strength oral suspension 20 mL, By Mouth, 4 times a day, between meals and at bedtime, # 240 mL, 1 Refills, Maintenance, 10/19/19 14:27:00 EST, Suspension, [facility], 20 mL By Mouth 4 times a day,Instr:between meals and at bedtime, 159, cm, 10/19/19 13:35:00... Start Date: 10/19/19 Status: Ordered omeprazole 40 mg oral enteric coated capsule 1 capsule = 40 mg, By Mouth, Daily, # 30 capsule, 3 Refills, Maintenance, 10/29/19 17:25:00 EST, ECCapsule, [facility]/pharmacy #[id number], 159, cm, 10/19/19 13:35:00 EST, Height [...] times a day, # 60 tablet, Refills 0, Tot. Refills 0, Maintenance, 11/18/19 16:31:00 EST, Route to Pharmacy Electronically, [facility]/pharmacy #[id number], 159, cm, 11/18/19 15:55:00 EST, Height Start Date: 11/18/19 Status: Ordered Problem List Condition Effective Dates Status Health Status Inform ant Hematuria(Confirmed) 1 Active Chronic back pain(Confirmed) Active Depression(Confirmed) Active Dyslipidemia(Confirmed) Active h/o allergic rhinitis(Confirmed) Active Illiteracy(Confirmed) Active Disc displacement(Confirmed) Active *N [facility], [facility] res, (Confirmed) 08/06/18 Active N/[facility]-Serena Purcell-[phone]/Health [facility], Active Care Coordination(Confirmed) Active Tubular adenoma of colon - d ue 2021(Confirmed) 2 11/2015 Active 1, gross 2-2014, had cystoscopy 2014 Social History Social History Type Response Smoking Status Never smoker entered on: 08/23/16 Sex
--- OUTSIDE RECORDS SUMMARY | 2023-06-10 06:23 | XMS_ITS | Continuity of Care Document ---
Author Name Unknown Organization [facility] Address [address] [place] [address]- Care Team Providers Care Road Gang Supervisor Name Role Phone Raiza KRISHNA, [place] Primary Care Physician [phone] [facility] - 03/20/23 [facility] [address] [place] [id number] Allergies, Adverse [...] inactivated 1 10/12/10 Gi jocy SARS-CoV-2 mRNA ([id number]-aeofp) vax 06/13/22 Recorded SARS-CoV-2 (COVID-19) mRNA BNT-162b2 vac 09/13/21 Recorded SARS-CoV-2 (COVID-19) mRNA BNT-162b2 vac 02/27/21 Given SARS-CoV-2 (COVID-19) mRNA BNT-162b2 vac 02/06/21 Given tetanus-diphtheria toxoids (Td) 11/23/20 Given tetanus/diphtheria/pertussis, acel(Tdap) 2 10/12/10 Given 1Admin Note: VIS given 05/30/10, Mexican form 2Admin Note: VIS given, 08/2008, Mexican form Medications amLODIPine 5 mg oral tablet 5 mg, 1, tablet, By Mouth, Daily, # 90 tablet, Refills 3, Tot. Refills 3, Maintenance, 11/01/22 9:44:00 EST, [id number] Partial fill upon patient request ifthe prescription is for a schedule II opioid drug.,... Start Date: 11/01/22 Status: Ordered Artificial Tears preserved solution 1 drops, Eyes, Both, 2 times a day, PRN for dry eyes, # 30 mL, 2 Refills, Maintenance, 02/04/23 9:35:00 EDT, Solution, [facility]/pharmacy #[id number], Partial fill upon patient request if the prescription is fora schedule II opioid drug., 1 drops Eyes, Both 2 ti... Start Date: 02/04/23 Status: Ordered Ativan 0.5 mg oral tablet 1 tablet = 0.5 mg, By Mouth, Once, brazilian label, take 30 mins to 1 hr before flight, # 2 tablet, 0Refills, Soft Stop, 10/08/22 17:54:00 EST, Tablet, [id number] Partial fill upon patient request if the prescription is for a schedule II opioi... Start Date: 10/08/22 Status: Ordered atorvastatin 40 mg oral tablet 1 tablet = 40 mg, By Mouth, Daily, # 30 tablet, 5 Refills, Maintenance, 12/19/22 14:49:00 EST, Tablet, [facility], Partial fill upon patient request if the prescription is for a schedule II opioid drug., 162.56, cm, 12/19/22 14:01:00 E... Start Date: 12/19/22 Status: Ordered azelastine 137 mcg/inh (0.1%) nasal spray 0 Refills, Maintenance, 12/07/21 11:16:00 EST, via Dr Glover, waterworks chief engineer Start Date: 12/07/21 Status: Ordered baclofen 10 mg oral tablet See Instructions, TOME JOAN TABLETA POR VIA ORAL KARLA VECES AL MONICA, # 63 tablet, Refills 0, Instructions Replace Required Details, Route to Pharmacy Electronically, [id number], 157.5, cm, 04/10/22 10:29:00 EDT, Height, 75, [...] 2 times a day, Print instructions in brazilian use only for toenails, # 60 mL, 1 Refills, Maintenance, 01/18/23 10:15:00 EDT, Suspension, [facility]/pharmacy #[id number], Partial fill uponpatient request if the prescription is for a sched... Start Date: 01/18/23 Status: Ordered [facility] LUBRICANT EYE DROPS Maintenance, 12/07/21 11:16:00 EST, via Dr Glover, waterworks chief engineer, Supply Start Date: 12/07/21 Status: Ordered diclofenac 1% topical gel 1 application, Topically, 4 times a day, # 100 Gm, 5 Refills, Maintenance, 12/07/22 11:37:00 EST, Gel, [facility]/pharmacy #[id number], Partial fill upon patient request if the prescription is for a schedule II opioid drug., 162.56, cm, 12/07/22 10:29:00 EST, [place]... Start Date: 12/07/22 Status: Ordered famotidine 40 mg oral tablet 1 tablet = 40 mg, By Mouth, 2 times a day, take 2x/day for 2 weeks then decrease to daily, # 60 tablet, 2 Refills, Maintenance, 06/24/22 12:04:00 EDT, Tablet, [facility]/pharmacy #[id number], Partial fill upon patient request if the prescription is for a schedule... Start Date: 06/24/22 Stop Date: 09/22/22 Status: Ordered Flomax 0.4 mg oral capsule 0.4 mg, 1, capsule, By Mouth, Daily, # 30 capsule, Refills 5, Tot. Refills 5, Maintenance, 11/07/2310:08:00 EST, Route to Pharmacy Electronically, [facility]/pharmacy #[id number], Partial fill upon patient request [...] 1 application, Topically, Daily, Print instructions in brazilian Use only on feet, # 60 Gm, [...] Maintenance, 12/07/21 11:16:00 EST, via Dr Glover, waterworks chief engineer, Supply Start Date: 12/07/21 Status: Ordered [...] 5 Refills, Maintenance, 12/07/22 11:36:00 EST, Suspension, [facility]/pharmacy #[id number], Partial fill upon patient request [...] EDT, He... Start Date: 06/11/22 Status: Ordered [place]-3 1000 mg oral capsule via psychiatry, 0 Refills, Maintenance, 12/07/21 11:13:00 EST, Partial fill upon patient request ifthe prescription is for a schedule II opioid drug. Start Date: 12/07/21 Status: Ordered omeprazole 40 mg oral enteric coated capsule See Instructions, JUAN RAMON WEBB VECES AL MONICA, # 180 capsule, 1 Refills, Maintenance, 02/25/23 7:44:00 EDT, [id number], 158, cm, 02/20/23 9:30:00 EDT, Height, 76.5, kg, 06/12/22 13:23:00 EDT, Dry Weight Start Date: 02/25/23 Status: Ordered Lynette-Colace 50 mg-8.6 mg oral tablet 2 tablet, By Mouth, Daily at bedtime, PRN Constipation, For constipation, # 60 tablet, 0 Refills, Maintenance, 01/02/22 20:52:00 EDT, Tablet, [facility]/pharmacy #[id number], Partial fill upon patient request [...] 11 Refills, Maintenance, 01/14/23 15:27:00 EDT, Tablet, [facility]/pharmacy #[id number], label in Mexican, 162.56,cm, 01/14/23 15:01:00 EDT, Height, 76.5, kg, [...] mL, 4 Refills, Maintenance, 02/28/22 16:09:00 EDT, [place], [id number], Partial fill upon patient request if the prescription is for a schedule II opioid drug., 1 sprays N... Start Date: 02/28/22 Status: Ordered Tears Naturale Forte preserved ophthalmic solution 1 drops, Eyes, Both, 2 times a day, PRN for dry eyes, # 30 mL, 0 Refills, Maintenance, 11/30/22 11:37:00 EST, Solution, [id number], Partial fill upon patient request if the [...] class I Confirmed Active Onychomycosis Confirmed Active *[facility]/CC-Patricia [phone]/[facility], Active Care [...] Team Personnel Name: [place]on Eastman MD Position: [facility] Resident Member Role: PCP Address: Address: [address] [place] [id number]- Care Team Related Persons Name: AJAY BE Address: [place] [address] Name: KAMALJIT FUCHS Address: home [address] [place] [address] [place] [id number]
--- OUTSIDE RECORDS SUMMARY | 2023-06-10 06:23 | XMS_ITS | Continuity of Care Document ---
Author Name Unknown Organization [facility] Address [address] [place] [address]- Care Team Providers Care Vacation Planner Name Role Phone Raiza KRISHNA, [place] Primary Care Physician [facility]s): 11/15/22 - 12/15/22 [facility] [address] [place] [id number] Allergies, Adverse Reactions, Alerts Substance Reaction [...] inactivated 1 10/12/10 Gi jocy SARS-CoV-2 mRNA (spokcke-pypv-izfaj) vax 06/13/22 Recorded SARS-CoV-2 (COVID-19) mRNA BNT-162b2 vac 09/13/21 Recorded SARS-CoV-2 (COVID-19) mRNA BNT-162b2 vac 02/27/21 Given SARS-CoV-2 (COVID-19) mRNA BNT-162b2 vac 02/06/21 Given tetanus-diphtheria toxoids (Td) 11/23/20 Given tetanus/diphtheria/pertussis, acel(Tdap) 2 10/12/10 Given 1Admin Note: VIS given 05/30/10, Afghan form 2Admin Note: VIS given, 08/2008, Afghan form Medications amLODIPine 5 mg oral tablet 5 mg, 1, tablet, By Mouth, Daily, # 90 tablet, Refills 3, Tot. Refills 3, Maintenance, 11/01/22 9:44:00 EST, Route to Pharmacy Electronically, [facility]/pharmacy #[id number], Partial fill upon patient request ifthe prescription is for a schedule II opioid drug.,... Start Date: 11/01/22 Status: Ordered Artificial Tears preserved solution 1 drops, Eyes, Both, 2 times a day, PRN for dry eyes, # 30 mL, 0 Refills, Maintenance, 11/29/22 17:50:00 EST, Solution, [facility]/pharmacy #[id number], Partial fill upon patient request if the prescription is for a schedule II opioid drug., 1 drops Eyes, Both 2 t... Start Date: 11/29/22 Status: Ordered Ativan 0.5 mg oral tablet 1 tablet = 0.5 mg, By Mouth, Once, australian label, take 30 mins to 1 hr before flight, # 2 tablet, 0Refills, Soft Stop, 10/08/22 17:54:00 EST, Tablet, [facility]/pharmacy #[id number], Partial fill upon patient request if the prescription is for a schedule II opioi... Start Date: 10/08/22 Status: Ordered azelastine 137 mcg/inh (0.1%) nasal spray 0 Refills, Maintenance, 12/07/21 11:16:00 EST, via Dr Glover, store manager Start Date: 12/07/21 Status: Ordered baclofen 10 mg oral tablet See Instructions, TOME JOAN TABLETA POR VIA ORAL KARLA VECES AL MONICA, # 63 tablet, Refills 0, Instructions Replace Required Details, Route to Pharmacy Electronically, [id number], 157.5, cm, 04/10/22 10:29:00 EDT, Height, 75, [...] 2 times a day, Print instructions in australian, # 60 mL, 1 Refills, Maintenance, 07/11/22 11:00:00 EDT, Suspension, [facility]/pharmacy #[id number], Partial fill upon patient request if the prescription is for a schedule II opioid drug., 1... Start Date: 07/11/22 Status: Ordered [facility] LUBRICANT E[facility] DROPS Maintenance, 12/07/21 11:16:00 EST, via Dr Glover, store manager, Supply Start Date: 12/07/21 Status: Ordered diclofenac 1% topical gel 1 application, Topically, 4 times a day, # 100 Gm, 5 Refills, Maintenance, 12/07/22 11:37:00 EST, Gel, [facility]/pharmacy #[id number], Partial fill upon patient [...] 2 Refills, Maintenance, 06/24/22 12:04:00 EDT, Tablet, [facility]/pharmacy #[id number], Partial fill upon patient request if the prescription is for a schedule... Start Date: 06/24/22 Stop Date: 09/22/22 Status: Ordered Flomax 0.4 mg oral capsule 0.4 mg, 1, capsule, By Mouth, Daily, # 30 capsule, Refills 5, Tot. Refills 5, Maintenance, 11/07/2310:08:00 EST, Route to Pharmacy Electronically, [facility]/pharmacy #[id number], Partial fill upon patient request if the prescription is for a schedule II opioid d... Start Date: 11/07/22 Status: Ordered loratadine 10 mg oral tablet 10 mg, 1, tablet, By Mouth, Daily, # 30 tablet, Refills 5, Tot. Refills 5, Maintenance, 12/18/21 10:54:00 EST, Route to Pharmacy Electronically, [facility]/pharmacy #[id number], Partial fill upon patient request if the prescription is for a schedule II opioid drug... Start Date: 12/18/21 Status: Ordered LUBRICNT EYE JESSICA 0.4-0.3% Maintenance, 12/07/21 11:16:00 EST, via Dr Glover, store manager, Supply Start Date: 12/07/21 Status: Ordered [...] EDT, He... Start Date: 06/11/22 Status: Ordered [place]-3 1000 mg oral capsule via psychiatry, 0 Refills, Maintenance, 12/07/21 11:13:00 EST, Partial fill upon patient request ifthe prescription is for a schedule II opioid drug. Start Date: 12/07/21 Status: Ordered omeprazole 40 mg oral enteric coated capsule See Instructions, JUAN RAMON ARTA DOS VECES AL MONICA, # 180 capsule, 1 Refills, Maintenance, 09/05/22 10:55:00 EST, [id number], 162.56, cm, 07/12/22 10:42:00 EDT, Height, 76.5, kg, 06/12/22 13:23:00 EDT, Dry Weight Start Date: 09/05/22 Status: Ordered Lynette-Colace 50 mg-8.6 mg oral tablet 2 tablet, By Mouth, Daily at bedtime, PRN Constipation, For constipation, # 60 tablet, 0 Refills, Maintenance, 01/02/22 20:52:00 EDT, Tablet, [facility]/pharmacy #[id number], Partial fill upon patient [...] mL, 0 Refills, Maintenance, 11/30/22 11:37:00 EST, [facility]/pharmacy #[id number], Partial fill upon patient request if the prescription is for a schedule II opioid drug., 2 sprays Nares, Both 4 times a day, 162.56, cm,... Start Date: 11/30/22 Status: Ordered Simply Saline 0.9% spray 1 sprays, Nares, Both, Every 30 minutes, PRN for dry nasal passages, # 45 mL, 4 Refills, Maintenance, 02/28/22 16:09:00 EDT, [place], [facility]/pharmacy #[id number], Partial fill upon patient request if the prescription is for a schedule II opioid drug., 1 sprays N... Start Date: 02/28/22 Status: Ordered Tears Naturale Forte preserved ophthalmic solution 1 drops, Eyes, Both, 2 times a day, PRN for dry eyes, # 30 mL, 0 Refills, Maintenance, 11/30/22 11:37:00 EST, Solution, [facility]/pharmacy #[id number], Partial fill upon patient [...] disease) Confirmed Active Allergic rhinitis Confirmed Active HTN (hypertension) Confirmed Active Illiteracy Confirmed Active Dyspepsia Confirmed Active Disc displacement Confirmed Active Onychomycosis Confirmed Active *N/[facility]/CC-Mary a [phone]/[facility], Active Care Coordination Confirmed Active Nasal septum perforation, h/o cocaine Confirmed Active Muscle spasm Confirmed Active Tubular adenoma of colon - due 2021 2 Confirmed 11/2015 Active 1, gross 2-2014, had cystoscopy 2014 removed 2015 Social History Social History Type Response Smoking Status Never smoker entered on: 08/23/16 Sex Patient Care team information Care Team Personnel Name: Raiza KRISHNA, [place] Position: [facility] Resident Member Role: PCP Address: Address: [address] [place] [address] [place] [address]- Care Team Related Persons Name: AJAY BE Address: [place] [address] Name: KAMALJIT FUCHS Address: home [address] [place] [id number]
--- OUTSIDE RECORDS SUMMARY | 2023-06-10 06:23 | XMS_ITS | Continuity of Care Document ---
Author Name Unknown Organization [facility] Address [address] [place] [address]- Care Team Providers Care Concert Singer Name Role Phone [place] Eastman MD Primary Care Physician [phone] Encounter [facility] [id number] Date(s): 02/06/22 - 03/08/[address] [address]- Attending Physician: Viky Garcia Admitting Physician: AdmtrViky [...] 10/12/10 Given 1Admin Note: VIS given 05/30/10, Sammarinese form 2Admin Note: VIS given, 08/2008, Sammarinese form Medications amLODIPine 2.5 mg oral tablet 2.5 mg, 1, tablet, By Mouth, Daily, ; STOP amlodipine 5 mg. use this dose instead., # 30 tablet, Refills 5, Tot. Refills 5, Maintenance, 11/17/21 16:52:00 EST, [id number] label all scripts in [place], 1... Start Date: 11/17/21 Stop Date: 05/16/22 Status: Ordered azelastine 0.05% ophthalmic solution 1 drops, Eyes, Both, 2 times a day, PRN for allergy symptoms, For eye allergies, # 6 mL, 6 Refills,Maintenance, 02/28/22 16:27:00 EDT, [facility]/pharmacy #[id number], Label in Sammarinese, 1 drops Eyes, Both 2 times a day,PRN:for allergy symptoms,Instr:For eye aller... Start Date: 02/28/22 Status: Ordered azelastine 137 mcg/inh (0.1%) nasal spray 0 Refills, Maintenance, 12/07/21 11:16:00 EST, via Dr Glover, industry segment specialist Start Date: 12/07/21 Status: Ordered buPROPion 150 [...] Maintenance, 12/07/21 11:16:00 EST, via Dr Glover, industry segment specialist, Supply Start Date: 12/07/21 Status: Ordered cyclobenzaprine [...] Gm, 1 Refills, Maintenance, 11/30/21 10:55:00 EST, [place], [id number], 1 sprays Nares, Both Daily, [...] Maintenance, 12/07/21 11:16:00 EST, via Dr Glover, industry segment specialist, Supply Start Date: 12/07/21 Status: Ordered minoxidil [...] Refills, Maintenance, 09/21/21 9:33:00 EST, REC Powder[facility] fill upon patient request if the prescription is for a schedule II opioid drug., 240 mL By Mouth Every 10 minut... Start Date: 09/21/21 Status: Ordered [place]-3 1000 mg oral capsule via psychiatry, 0 [...] mL, 4 Refills, Maintenance, 02/28/22 16:09:00 EDT, [place], [facility]/pharmacy #[id number], Partial fill upon patient request if the prescription is for a schedule II opioid drug., 1 sprays N... Start Date: 02/28/22 Status: Ordered tamsulosin 0.4 mg oral capsule 0.4 mg, 1, capsule, By Mouth, Daily, at night (print label in grenadian), # 30 capsule, Refills 1, Tot. Refills 1, Maintenance, 09/28/21 14:03:00 EST, Route to Pharmacy Electronically, [facility], Partial fill upon patient request if the... [...] 17:18:00 EDT, Capsule, [facility]/pharmacy #[id number], grenadian labeling, 159, cm, 04/28/2115:46:00 EDT, Height, 78, [...] class I(Confirmed) Active Onychomycosis(Confirmed) Active *N/[facility]/CC-Patricia [phone]/[facility], Active Care Coordination(Confirmed) Active Nasal septum perforation, h/ o cocaine(Confirmed) Active Muscle spasm(Confirmed) Active Tubular adenoma of colon - d ue 2021(Confirmed) 2 11/2015 Active 1 gross 2-2014, had cystoscopy 2014 Social History Social History Type Response Smoking Status Never smoker entered on: 08/23/16 Sex
--- OUTSIDE RECORDS SUMMARY | 2023-06-10 06:23 | XMS_ITS | Continuity of Care Document ---
Author Name Unknown Organization [facility] Address [address] [place] [address]- Care Team Providers Care Medical Reimbursement Manager Name Role Phone [place] Eastman MD Primary Care Physician [facility] 06[facility]21 - 07/09/21 [facility] [address] [place], [place] [address] Allergies, Adverse Reactions, Alerts Substance Reaction [...] VIS given, 08/2008, Kazakh form Medications amLODIPine 2.5 mg oral tablet 2.5 mg, 1, tablet, By Mouth, Daily, ; STOP amlodipine 5 mg. use this dose instead., # 30 tablet, Refills 11, Tot. Refills 11, Maintenance, 11/22/20 16:52:00 EST, Route to Pharmacy Electronically, [facility]/pharmacy #[id number], label all scripts in [place],... Start Date: 11/22/20 Stop Date: 11/17/21 Status: Ordered azelastine 0.05% ophthalmic solution 1 drops, Eyes, Both, 2 times a day, PRN for allergy symptoms, # 6 mL, 6 Refills, Maintenance, 01/13/21 14:54:00 EDT, [facility]/pharmacy #[id number], Label in Kazakh, 1 drops Eyes, Both 2 times a day,PRN:for allergy symptoms, 159, cm, 01/04/21 9:23:00 EDT, Height... Start Date: 01/13/21 Status: Ordered diclofenac 3% topical gel 1 application, Topically, 2 times a day, # 100 Gm, 0 Refills, Maintenance, 04/28/21 17:22:00 EDT, Gel, [facility]/pharmacy #[id number], Partial fill upon patient request if the prescription is for a schedule II opioid drug., 1 application Topically 2 times a day,... Start Date: 04/28/21 Status: Ordered Flonase 50 mcg/inh nasal spray 1 sprays, Nares, Both, Daily, # 16 Gm, 1 Refills, Maintenance, 06/16/20 18:04:00 EDT, [place], [facility]/pharmacy #[id number], 159, cm, 06/08/20 13:31:00 EDT, Height Start Date: 06/16/20 Status: Ordered multivitamin Multiple Vitamins oral capsule 1 capsule, By Mouth, Daily, # 90 capsule, 1 Refills, Maintenance, 02/06/21 14:59:00 EDT, Capsule, [facility]/pharmacy #[id number], 1 capsule By Mouth Daily, 159, cm, 01/04/21 9:23:00 EDT, Height, 78, kg, 01/02/2116:06:00 EDT, Dry Weight Start Date: 02/06/21 Status: Ordered omeprazole 40 mg oral enteric coated capsule 1 capsule = 40 mg, By Mouth, 2 times a day, # 60 capsule, 2 Refills, Maintenance, 04/13/21 10:31:00EDT, EC Capsule, [facility]/pharmacy #[id number], Partial fill upon patient request [...] Refills, Maintenance, 04/28/21 17:18:00 EDT, Capsule, [facility]/pharmacy #[id number], belarusian labeling, 159, cm, 04/28/2115:46:00 EDT, Height, 78, kg, 01/01/21 16:06:00 EDT... Start Date: 04/28/21 Stop Date: 05/01/21 Status: Ordered Tums 500 mg oral tablet, chewable 500 mg, 1, tablet, Chew, 2 times a day, # 60 tablet, Refills 5, Tot. Refills 5, Maintenance, 12/16/20 14:32:00 EST, Route to Pharmacy Electronically, [facility]/pharmacy #[id number], 159, cm, 12/16/20 13:47:00 EST, Height, 74.1, kg, 10/20/20 16:18:00 EST, Dry Weight Start Date: 12/16/20 Status: Ordered Problem List Condition Effective Dates Status Health Status Inform ant Hematuria(Confirmed) 1 Active Chronic back pain(Confirmed) Active Dyslipidemia(Confirmed) Active h/o allergic rhinitis(Confirmed) Active Illiteracy(Confirmed) Active Dyspepsia(Confirmed) Active Disc displacement(Confirmed) Active Onychomycosis(Confirmed) Active [facility]/CC-Serena Purcell-[phone]/[facility], Active Care Coordination(Confirmed) Active Muscle spasm(Confirmed) Active Tubular adenoma of colon - d ue 2021(Confirmed) 2 11/2015 Active 1, gross 2-2014, had cystoscopy 2014 Social History Social History Type Response Smoking Status Never smoker entered on: 08/23/16 Sex
--- OUTSIDE RECORDS SUMMARY | 2023-06-10 06:23 | XMS_ITS | Continuity of Care Document ---
Author Name Unknown Organization [facility] Address [address] [place] [address]- Care Team Providers Care Hardwood Floor Installation Helper Name Role Phone Trenton Eastman MD Primary Care Physician Encounter [facility] [place] Date(s): 09/20/21 - 10/20/21 [facility] [address] [place] [id number] Allergies, Adverse Reactions, Alerts Substance [...] 10/12/10 Given 1Admin Note: VIS given 05/30/10, [place] form 2Admin Note: VIS given, 08/2008, [place]uan form Medications amLODIPine 2.5 mg oral tablet 2.5 mg, 1, tablet, By Mouth, Daily, ; STOP amlodipine 5 mg. use this dose instead., # 30 tablet, Refills 11, Tot. Refills 11, Maintenance, 11/22/20 16:52:00 EST, Route to [facility]ically, [id number], label all scripts in GREEK,... Start Date: 11/22/20 Stop Date: 11/17/21 Status: Ordered azelastine 0.05% ophthalmic solution 1 drops, Eyes, Both, 2 times a day, PRN for allergy symptoms, # 6 mL, 6 Refills, Maintenance, 01/13/21 14:54:00 EDT, [facility]/pharmacy #[id number], Label in Tu[place]uan, 1 drops Eyes, Both 2 times a [...] 1 Refills, Maintenance, 08/28/21 14:44:00 EST, Solution, [facility]/pharmacy #[id number], Partial fill upon patient request [...] 0 Refills, Maintenance, 04/28/21 17:22:00 EDT, Gel, [facility]/pharmacy #[id number], Partial fill upon patient request if the prescription is for a schedule II opioid drug., 1 application Topically 2 times a day,... Start Date: 04/28/21 Status: Ordered Flonase 50 mcg/inh nasal spray 1 sprays, Nares, Both, Daily, # 16 Gm, 1 Refills, Maintenance, 06/16/20 18:04:00 EDT, [place], [facility]/pharmacy #[id number], 159, cm, 06/08/20 13:31:00 EDT, Height Start Date: 06/16/20 Status: Ordered multivitamin Multiple Vitamins oral capsule 1 capsule, By Mouth, Daily, # 90 capsule, 0 Refills, Maintenance, 10/18/21 22:09:00 EST, Capsule, [facility]/pharmacy #[id number], 1 capsule By Mouth Daily, 159, cm, 10/05/21 13:26:00 EST, Height, 78, kg, 01/01/21 16:06:00 EDT, Dry Weight Start Date: 10/18/21 Status: Ordered NuLYTELY with Flavor Packs oral powder for reconstitution 240 mL, By Mouth, Every 10 minutes, # 1 each, 0 Refills, Maintenance, 09/21/21 9:33:00 EST, REC Powder, [facility], Partial fill upon patient request if the prescription is for a schedule II opioid drug., 240 mL By Mouth Every 10 minut... Start Date: 09/21/21 Status: Ordered omeprazole 40 mg oral enteric coated capsule 1 capsule = 40 mg, By Mouth, 2 times a day, # 60 capsule, 2 Refills, Maintenance, 04/13/21 10:31:00EDT, EC Capsule, [facility]/pharmacy #[id number], Partial fill upon patient request [...] Mouth, Daily, at night (print label in korean), # 30 capsule, Refills 1, Tot. Refills 1, Maintenance, 09/28/21 14:03:00 EST, Route to Pharmacy Electronically, [facility], Partial fill upon patient request if the... Start Date: 09/28/21 Status: Ordered Tears Naturale Forte preserved ophthalmic solution 1 drops, Eyes, Both, 2 times a day, PRN for dry eyes, # 30 mL, 0 Refills, Maintenance, 08/28/21 14:52:00 EST, Solution, [facility]/pharmacy #[id number], Partial fill upon patient request if the prescription is for a schedule II opioid drug., 1 drops Eyes, Both 2 t... Start Date: 08/28/21 Status: Ordered tiZANidine 2 mg oral capsule 1 capsule = 2 mg, By Mouth, 3 times a day, PRN as needed for muscle spasm, # 9 capsule, 0 Refills, Maintenance, 04/28/21 17:18:00 EDT, Capsule, [facility]/pharmacy #[id number], korean labeling, 159, cm, 04/28/2115:46:00 EDT, Height, 78, kg, 01/01/21 16:06:00 EDT... Start Date: 04/28/21 Stop Date: 05/01/21 Status: Ordered Tums 500 mg oral tablet, chewable 500 mg, 1, tablet, Chew, 2 times a day, # 60 tablet, Refills 5, Tot. Refills 5, Maintenance, 12/16/20 14:32:00 EST, Route to Pharmacy Electronically, [facility]/pharmacy #[id number], 159, cm, 12/16/20 13:47:00 EST, Height, 74.1, kg, 10/20/20 16:18:00 EST, Dry Weight Start Date: 12/16/20 Status: Ordered Problem List Condition Effective Dates Status Health Status Inform ant Hematuria(Confirmed) 1 Active Chronic back pain(Confirmed) Active Dyslipidemia(Confirmed) Active h/o allergic rhinitis(Confirmed) Active Illiteracy(Confirmed) Active Dyspepsia(Confirmed) Active Disc displacement(Confirmed) Active Onychomycosis(Confirmed) Active *[facility]-Patricia [phone]/[facility], Active Care Coordination(Confirmed) Active Muscle spasm(Confirmed) Active Tubular adenoma of colon - d ue 2021(Confirmed) 2 11/2015 Active 1, gross 2-2014, had cystoscopy 2014 Social History Social History Type Response Smoking Status Never smoker entered on: 08/23/16 Sex
--- OUTSIDE RECORDS SUMMARY | 2023-06-10 06:23 | XMS_ITS | Continuity of Care Document ---
Author Name Unknown Organization [facility] Address [address] [place] [address]- Care Team Providers Care Lifestyle Director Name Role Phone Raiza KRISHNA, [place]on Primary Care Physician [phone] Encounter [facility] [place] Date(s): 09/19/21 - 12/22/21 [facility] [address] [place] [address]- Attending Physician: Lloyd Santiago MD Admitting Physician: [...] Maintenance, 11/17/21 16:52:00 EST, Route to Pharmacy Electronically,[facility]/pharmacy #[id number], label all scripts in [place]GAL[place], 1... Start Date: 11/17/21 Stop Date: 05/16/22 Status: Ordered azelastine 0.05% ophthalmic solution 1 drops, Eyes, Both, 2 times a day, PRN for allergy symptoms, For eye allergies, # 6 mL, 6 Refills,Maintenance, 12/18/21 10:53:00 EST, [facility]/pharmacy #[id number], Label in Croatian, 1 drops Eyes, Both 2 times a day,PRN:for allergy symptoms,Instr:For eye aller... Start Date: 12/18/21 Status: Ordered azelastine 137 mcg/inh (0.1%) nasal spray 0 Refills, Maintenance, 12/07/21 11:16:00 EST, via Dr Glover, business process expert Start Date: 12/07/21 Status: Ordered buPROPion 150 [...] 1 Refills, Maintenance, 08/28/21 14:44:00 EST, Solution, [facility]/pharmacy #[id number], Partial fill upon patient request if the prescription is for... Start Date: 08/28/21 Status: Ordered [facility] LUBRICANT E[facility] DROPS Maintenance, 12/07/21 11:16:00 EST, via Dr Glover, business process expert, Supply Start Date: 12/07/21 Status: Ordered cyclobenzaprine 5 mg oral tablet 0 Refills, Maintenance, 09/28/21 13:55:00 EST, Partial fill upon patient request if the prescription is for a schedule II opioid drug. Start Date: 09/28/21 Status: Ordered diclofenac 3% topical gel 1 application, Topically, 2 times a day, # 100 Gm, 0 Refills, Maintenance, 04/28/21 17:22:00 EDT, Gel, [facility]/pharmacy #[id number], Partial fill upon patient request if the prescription is for a schedule II opioid drug., 1 application Topically 2 times a day,... Start Date: 04/28/21 Status: Ordered Flonase 50 mcg/inh nasal spray 1 sprays, Nares, Both, Daily, # 16 Gm, 1 Refills, Maintenance, 11/30/21 10:55:00 EST, [place], [facility]/pharmacy #[id number], 1 sprays Nares, Both Daily, 159, cm, 11/30/21 9:50:00 EST, Height, 78, kg, 01/01/21 16:06:00 EDT, Dry Weight Start Date: 11/30/21 Status: Ordered loratadine 10 mg oral tablet 10 mg, 1, tablet, By Mouth, Daily, # 30 tablet, Refills 5, Tot. Refills 5, Maintenance, 12/18/21 10:54:00 EST, Route to Pharmacy Electronically, [facility]/pharmacy #[id number], Partial fill upon patient request if the prescription is for a schedule II opioid drug... Start Date: 12/18/21 Status: Ordered LUBRICNT EYE JESSICA 0.4-0.3% Maintenance, 12/07/21 11:16:00 EST, via Dr Glover, business process expert, Supply Start Date: 12/07/21 Status: Ordered multivitamin Multiple Vitamins oral capsule 1 capsule, By Mouth, Daily, # 90 capsule, 0 Refills, Maintenance, 10/18/21 22:09:00 EST, Capsule, [facility]/pharmacy #[id number], 1 capsule By Mouth Daily, 159, cm, 10/05/21 13:26:00 EST, Height, 78, kg, 01/01/21 16:06:00 EDT, Dry Weight Start Date: 10/18/21 Status: Ordered NuLYTELY with Flavor Packs oral powder for reconstitution 240 mL, By Mouth, Every 10 minutes, # 1 each, 0 Refills, Maintenance, 09/21/21 9:33:00 EST, REC Powder, [facility], Partial fill upon patient request if the prescription is for a schedule II opioid drug., 240 mL By Mouth Every 10 minut... Start Date: 09/21/21 Status: Ordered [place]-3 1000 mg oral capsule via psychiatry, 0 Refills, Maintenance, 12/07/21 11:13:00 EST, Partial fill upon patient request ifthe prescription is for a schedule II opioid drug. Start Date: 12/07/21 Status: Ordered omeprazole 40 mg oral enteric coated capsule 1 capsule = 40 mg, By Mouth, 2 times a day, # 60 capsule, 2 Refills, Maintenance, 04/13/21 10:31:00EDT, EC Capsule, [facility]/pharmacy #[id number], Partial fill upon patient request if the prescription is for aschedule II opioid drug., 159, cm, 01/04/21 9:23:00... Start Date: 04/13/21 Stop Date: 07/12/21 Status: Ordered QUEtiapine 50 mg oral tablet via psychiatry, 0 Refills, Maintenance, 12/07/21 11:13:00 EST, Partial fill upon patient request ifthe prescription is for a schedule II opioid drug. Start Date: 12/07/21 Status: Ordered tamsulosin 0.4 mg oral capsule 0.4 mg, 1, capsule, By Mouth, Daily, at night (print label in georgian), # 30 capsule, Refills 1, Tot. Refills 1, Maintenance, 09/28/21 14:03:00 EST, Route to Pharmacy Electronically, [facility], Partial fill upon patient request if the... Start Date: 09/28/21 Status: Ordered Tears Naturale Forte preserved ophthalmic solution 1 drops, Eyes, Both, 2 times a day, PRN for dry eyes, # 30 mL, 0 Refills, Maintenance, 08/28/21 14:52:00 EST, Solution, [facility]/pharmacy #[id number], Partial fill upon patient request if the prescription is for a schedule II opioid drug., 1 drops Eyes, Both 2 t... Start Date: 08/28/21 Status: Ordered tiZANidine 2 mg oral capsule 1 capsule = 2 mg, By Mouth, 3 times a day, PRN as needed for muscle spasm, # 9 capsule, 0 Refills, Maintenance, 04/28/21 17:18:00 EDT, Capsule, [id number], georgian labeling, 159, cm, 04/28/2115:46:00 EDT, Height, 78, kg, 01/01/21 16:06:00 EDT... Start Date: 04/28/21 Stop Date: 05/01/21 Status: Ordered Tums 500 mg oral tablet, chewable 500 mg, 1, tablet, Chew, 2 times a day, # 60 tablet, Refills 5, Tot. Refills 5, Maintenance, 12/16/20 14:32:00 EST, Route to Pharmacy Electronically, [facility]/pharmacy #[id number], 159, cm, 12/16/20 13:47:00 EST, Height, 74.1, kg, 10/20/20 16:18:00 EST, Dry Weight Start Date: 12/16/20 Status: Ordered Problem List Condition Effective Dates Status Health Status Inform ant Hematuria(Confirmed) 1 Active Chronic back pain(Confirmed) Active Dyslipidemia(Confirmed) Active Allergic rhinitis(Confirmed) Active Illiteracy(Confirmed) Active Dyspepsia(Confirmed) Active Disc displacement(Confirmed) Active Obese class I(Confirmed) Active Onychomycosis(Confirmed) [facility]Patricia [phone]/[facility], Active Care Coordination(Confirmed) Active Nasal septum perforation, h/ o cocaine(Confirmed) Active Muscle spasm(Confirmed) Active Tubular adenoma of colon - d ue 2021(Confirmed) 2 11/2015 Active lul Vick -2014, had cystoscopy 2014 Social History Social History Type Response Smoking Status Never smoker entered on: 08/23/16 Sex
--- OUTSIDE RECORDS SUMMARY | 2023-06-10 06:23 | XMS_ITS | Continuity of Care Document ---
Author Name Unknown Organization [facility] Address [address] [place] [address]- Care Team Providers Care Chemical Plant Manager Name Role Phone Raiza KRISHNA, [place]on Primary Care Physician Encounter [facility] Date(s): 11/21/22 - 12/21/22 [facility] [address] [place] [id number] Allergies, Adverse Reactions, Alerts Substance Reaction Severity [...] inactivated 1 10/12/10 Gi jocy SARS-CoV-2 mRNA ([id number]) vax 06/13/22 Recorded SARS-CoV-2 (COVID-19) mRNA BNT-162b2 [...] 11/01/22 9:44:00 EST, [id number] Partial fill upon patient request ifthe prescription is for a schedule II opioid drug.,... Start Date: 11/01/22 Status: Ordered Artificial Tears preserved solution 1 drops, Eyes, Both, 2 times a day, PRN for dry eyes, # 30 mL, 0 Refills, Maintenance, 11/29/22 17:50:00 EST, Solution, [facility]/pharmacy #[id number], Partial fill upon patient request if the prescription is for a schedule II opioid drug., 1 drops Eyes, Both 2 t... Start Date: 11/29/22 Status: Ordered Ativan 0.5 mg oral tablet 1 tablet = 0.5 mg, By Mouth, Once, czech label, take 30 mins to 1 hr before flight, # 2 tablet, 0Refills, Soft Stop, 10/08/22 17:54:00 EST, Tablet, [facility]/pharmacy #[id number], Partial fill upon patient request if the prescription is for a schedule II opioi... Start Date: 10/08/22 Status: Ordered atorvastatin 40 mg oral tablet 1 tablet = 40 mg, By Mouth, Daily, # 30 tablet, 5 Refills, Maintenance, 12/19/22 14:49:00 EST, Tablet, [facility], Partial fill upon patient request if the prescription is for a schedule II opioid drug., 162.56, cm, 12/19/22 14:01:00 E... Start Date: 12/19/22 Status: Ordered azelastine 137 mcg/inh (0.1%) nasal spray 0 Refills, Maintenance, 12/07/21 11:16:00 EST, via Dr Glover, microbiology lab technician Start Date: 12/07/21 Status: Ordered baclofen 10 mg oral tablet See Instructions, TOME JOAN TABLETA POR VIA ORAL KARLA VECES AL MONICA, # 63 tablet, Refills 0, Instructions Replace Required Details, Route to Pharmacy Electronically, [id number], 157.5, cm, 04/10/22 10:29:00 EDT, Height, 75, [...] 2 times a day, Print instructions in czech, # 60 mL, 1 Refills, Maintenance, 07/11/22 11:00:00 EDT, [place], [facility]/pharmacy #[id number], Partial fill upon patient request if the prescription is for a schedule II opioid drug., 1... Start Date: 07/11/22 Status: Ordered [facility] LUBRICANT EYE DROPS Maintenance, 12/07/21 11:16:00 EST, via Dr Glover, microbiology lab technician, Supply Start Date: 12/07/21 Status: Ordered diclofenac 1% topical gel 1 application, Topically, 4 times a day, # 100 Gm, 5 Refills, Maintenance, 12/07/22 11:37:00 EST, Gel, [facility]/pharmacy #[id number], Partial fill upon patient [...] Refills, Maintenance, 06/24/22 12:04:00 EDT, Tablet, [facility]/pharmacy #[id number], Partial fill upon patient request if the prescription is for a schedule... Start Date: 06/24/22 Stop Date: 09/22/22 Status: Ordered Flomax 0.4 mg oral capsule 0.4 mg, 1, capsule, By Mouth, Daily, # 30 capsule, Refills 5, Tot. Refills 5, Maintenance, 11/07/2310:08:00 EST, Route to Pharmacy Electronically, [facility]/pharmacy #[id number], Partial fill upon patient request if the prescription is for a schedule II opioid d... Start Date: 11/07/22 Status: Ordered loratadine 10 mg oral tablet 10 mg, 1, tablet, By Mouth, Daily, # 30 tablet, Refills 5, Tot. Refills 5, Maintenance, 12/18/21 10:54:00 EST, Route to Pharmacy Electronically, [facility]/pharmacy #[id number], Partial fill upon patient request if the prescription is for a schedule II opioid drug... Start Date: 12/18/21 Status: Ordered LUBRICNT EYE JESSICA 0.4-0.3% Maintenance, 12/07/21 11:16:00 EST, via Dr Glover, microbiology lab technician, Supply Start Date: 12/07/21 Status: Ordered minoxidil 2% topical solution 1 mL = 0.02 Gm, Topically, 2 times a day, # 60 mL, 2 Refills, Maintenance, 02/28/22 16:27:00 EDT, Solution, [facility]/pharmacy #[id number], Partial fill upon patient [...] EDT, He... Start Date: 06/11/22 Status: Ordered [place]-3 1000 mg oral capsule via psychiatry, 0 Refills, Maintenance, 12/07/21 11:13:00 EST, Partial fill upon patient request ifthe prescription is for a schedule II opioid drug. Start Date: 12/07/21 Status: Ordered omeprazole 40 mg oral enteric coated capsule See Instructions, JUAN RAMON JOAN CAPSULA DOS VECES AL MONICA, # 180 capsule, 1 Refills, Maintenance, 09/05/22 10:55:00 EST, [id number], 162.56, cm, 07/12/22 10:42:00 EDT, Height, 76.5, kg, 06/12/22 13:23:00 EDT, Dry Weight Start Date: 09/05/22 Status: Ordered Lynette-Colace 50 mg-8.6 mg oral tablet 2 tablet, By Mouth, Daily at bedtime, PRN Constipation, For constipation, # 60 tablet, 0 Refills, Maintenance, 01/02/22 20:52:00 EDT, Tablet, [facility]/pharmacy #[id number], Partial fill upon patient [...] mL, 4 Refills, Maintenance, 02/28/22 16:09:00 EDT, [place], [id number], Partial fill upon patient request if the prescription is for a schedule II opioid drug., 1 sprays N... Start Date: 02/28/22 Status: Ordered Tears Naturale Forte preserved ophthalmic solution 1 drops, Eyes, Both, 2 times a day, PRN for dry eyes, # 30 mL, 0 Refills, Maintenance, 11/30/22 11:37:00 EST, Solution, [facility]/pharmacy #[id number], Partial fill upon patient request if the [...] Disc displacement Confirmed Active Onychomycosis Confirmed Active *[facility]/CC-Patricia [phone]/[facility], Active Care Coordination Confirmed Active Nasal septum perforation, h/o cocaine Confirmed Active Muscle spasm Confirmed Active Tubular adenoma of colon - due 2021 2 Confirmed 11/2015 Active 1, gross 2-2014, had cystoscopy 2014 Social History Social History Type Response Smoking Status Never smoker entered on: 08/23/16 Sex Patient Care team information Care Team Personnel Name: Trenton Eastman MD Position: [facility] Resident Member Role: PCP Address: Address: [address] [place] [address] [place] [address]- Care Team Related Persons Name: AJAY BE Address: [place] [address] Name: KAMALJIT FUCHS Address: home [address] [place] [address] [place] [id number]
--- OUTSIDE RECORDS SUMMARY | 2023-06-10 06:23 | XMS_ITS | Continuity of Care Document ---
Author Name Unknown Organization [facility] Address [address] [place] [address]- Care Team Providers Care Skin Diver Name Role Phone Raiza KRISHNA, [place] Primary Care Physician [phone] Encounter [facility] Date(s): 03/30/22 - 04/29/22 [facility] [address] [place] [id number] Allergies, Adverse Reactions, Alerts Substance Reaction [...] Maintenance, 11/17/21 16:52:00 EST, Route to Pharmacy Electronically,[facility]/pharmacy #[id number], label all scripts in UZBEK, 1... Start Date: 11/17/21 Stop Date: 05/16/22 Status: Ordered azelastine 0.05% ophthalmic solution 1 drops, Eyes, Both, 2 times a day, PRN for allergy symptoms, For eye allergies, # 6 mL, 6 Refills,Maintenance, 02/28/22 16:27:00 EDT, [facility]/pharmacy #[id number], Label in [place], 1 drops Eyes, Both 2 times a day,PRN:for allergy symptoms,Instr:For eye aller... Start Date: 02/28/22 Status: Ordered azelastine 137 mcg/inh (0.1%) nasal spray 0 Refills, Maintenance, 12/07/21 11:16:00 EST, via Dr Glover, summer camp counselor Start Date: 12/07/21 Status: Ordered baclofen 10 mg oral tablet See Instructions, JUAN RAMON FRANCO TABLETA POR VIA ORAL KARLA VECES AL MONICA, # 63 tablet, Refills 0, Instructions Replace Required Details, Route to [facility], [id number], 157.5, cm, 04/10/22 10:29:00 EDT, Height, 75, [...] 1 Refills, Maintenance, 08/28/21 14:44:00 EST, Solution, [facility]/pharmacy #[id number], Partial fill upon patient request if the prescription is for... Start Date: 08/28/21 Status: Ordered Crutches See Instructions, # 1 kit, Maintenance, use for 2 weeks dx: leg injury, 03/27/22 10:10:00 EDT, Supply, 157.5, cm, 03/27/22 9:45:00 EDT, Height, 75, kg, 03/25/22 2:00:00 EDT, Dry Weight Start Date: 03/27/22 Status: Ordered [facility] LUBRICANT EYE DROPS Maintenance, 12/07/21 11:16:00 EST, via Dr Glover, summer camp counselor, Supply Start Date: 12/07/21 Status: Ordered cyclobenzaprine 5 mg oral tablet 0 Refills, Maintenance, 09/28/21 13:55:00 EST, Partial fill upon patient request if the prescription is for a schedule II opioid drug. Start Date: 09/28/21 Status: Ordered diclofenac 3% topical gel 1 application, Topically, 2 times a day, # 100 Gm, 0 Refills, Maintenance, 04/28/21 17:22:00 EDT, Gel, [facility]/pharmacy #[id number], Partial fill upon patient request if the prescription is for a schedule II opioid drug., 1 application Topically 2 times a day,... Start Date: 04/28/21 Status: Ordered Flonase 50 mcg/inh nasal spray 1 sprays, Nares, Both, Daily, # 16 Gm, 1 Refills, Maintenance, 11/30/21 10:55:00 EST, [place], [facility]/pharmacy #[id number], 1 sprays Nares, Both Daily, 159, [...] 12/18/21 10:54:00 EST, Route to Pharmacy Electronically, [facility]/pharmacy #[id number], Partial fill upon patient request if the prescription is for a schedule II opioid drug... Start Date: 12/18/21 Status: Ordered LUBRICNT EYE JESSICA 0.4-0.3% Maintenance, 12/07/21 11:16:00 EST, via Dr Glover, summer camp counselor, Supply Start Date: 12/07/21 Status: Ordered minoxidil 2% topical solution 1 mL = 0.02 Gm, Topically, 2 times a day, # 60 mL, 2 Refills, Maintenance, 02/28/22 16:27:00 EDT, Solution, [facility]/pharmacy #[id number], Partial [...] Maintenance, 09/21/21 9:33:00 EST, REC Powder, [facility], Partial fill upon patient request if the prescription is for a schedule II opioid drug., 240 mL By Mouth Every 10 minut... Start Date: 09/21/21 Status: Ordered [place]-3 1000 mg oral capsule via psychiatry, 0 [...] 0 Refills, Maintenance, 01/02/22 20:52:00 EDT, Tablet, [facility]/pharmacy #[id number], Partial [...] mL, 4 Refills, Maintenance, 02/28/22 16:09:00 EDT, [place], [facility]/pharmacy #[id number], Partial fill upon patient request if the prescription is for a schedule II opioid drug., 1 sprays N... Start Date: 02/28/22 Status: Ordered tamsulosin 0.4 mg oral capsule 0.4 mg, 1, capsule, By Mouth, Daily, at night (print label in czech), # 30 capsule, Refills 1, Tot. Refills 1, Maintenance, 09/28/21 14:03:00 EST, Route to Pharmacy Electronically, [facility], Partial fill upon patient request if the... Start Date: 09/28/21 Status: Ordered Tears Naturale Forte preserved ophthalmic solution 1 drops, Eyes, Both, 2 times a day, PRN for dry eyes, # 30 mL, 0 Refills, Maintenance, 08/28/21 14:52:00 EST, Solution, [facility]/pharmacy #[id number], Partial [...] Maintenance, 04/28/21 17:18:00 EDT, Capsule, [id number], czech labeling, 159, cm, 04/28/2115:46:00 EDT, Height, 78, kg, 01/01/21 16:06:00 EDT... Start Date: 04/28/21 Stop Date: 05/01/21 Status: Ordered Tums 500 mg oral tablet, chewable 500 mg, 1, tablet, Chew, 2 times a day, # 60 tablet, Refills 5, Tot. Refills 5, Maintenance, 12/16/20 14:32:00 EST, Route to Pharmacy Electronically, [facility]/pharmacy #[id number], 159, cm, 12/16/20 13:47:00 EST, Height, [...] class I(Confirmed) Active Onychomycosis(Confirmed) Active *[facility]-Patricia [phone]/[facility], Active Care Coordination(Confirmed) Active Nasal septum perforation, h/ o cocaine(Confirmed) Active Muscle spasm(Confirmed) Active Tubular adenoma of colon - d ue 2021(Confirmed) 2 11/2015 Active 1, gross 2-2014, had cystoscopy 2014 Social History Social History Type Response Smoking Status Never smoker entered on: 08/23/16 Sex
--- OUTSIDE RECORDS SUMMARY | 2023-06-10 06:23 | XMS_ITS | Continuity of Care Document ---
Author Name Unknown Organization [facility] Address [address] [place] [address]- Care Team Providers Care Fuel Quality Tech Name Role Phone Hugh Spence MD Primary Care Physician [phone] Encounter [facility] [place] Date(s): 12/13/20 - 01/12/21 [facility] [address] [place] [id number] Attending Physician: Viky Garcia Admitting Physician: AdmViky daily Referring Physician: Admtr, [id number] Allergies, Adverse Reactions, Alerts Substance Reaction Severity Status penicillins Active Immunizations Given and Recorded Vaccine Date Status Refusal Reason tetanus-diphtheria toxoids (Td) 11/23/20 Given influenza virus vaccine, inactivated 07/27/20 Give n influenza virus vaccine, inactivated 12/21/19 Give n influenza virus vaccine, inactivated 07/15/19 Give n influenza virus vaccine, inactivated 1 10/12/10 Gi jocy tetanus/diphtheria/pertussis, acel(Tdap) 2 10/12/10 Given 1Admin Note: VIS given 05/30/10, Norwegian form 2Admin Note: VIS given, 08/2008, Norwegian form Medications amLODIPine 2.5 mg oral tablet 2.5 mg, 1, tablet, By Mouth, Daily, ; STOP amlodipine 5 mg. use this dose instead., # 30 tablet, Refills 11, Tot. Refills 11, Maintenance, 11/22/20 16:52:00 EST, Route to Pharmacy Electronically, [facility]/pharmacy #[id number], label all scripts in JAPANESE,... Start Date: 11/22/20 Stop Date: 11/17/21 Status: Ordered diclofenac 1% topical gel 1 application, Topically, 4 times a day, not to exceed 32 grams/day, # 100 Gm, 2 Refills, Maintenance, 12/12/20 11:17:00 EST, Gel, [facility]/pharmacy #[id number], Label in Norwegian please, 159, cm, 12/12/20 10:33:00 EST, Height, 74.1, kg, 10/20/20 16:18:00 EST, . Start Date: 12/12/20 Status: Ordered Flonase 50 mcg/inh nasal spray 1 sprays, Nares, Both, Daily, # 16 Gm, 1 Refills, Maintenance, 06/16/20 18:04:00 EDT, [place], [facility]/pharmacy #[id number], 159, cm, 06/08/20 13:31:00 EDT, Height Start Date: 06/16/20 Status: Ordered multivitamin Multiple Vitamins oral capsule 1 capsule, By Mouth, Daily, # 90 capsule, 11 Refills, Maintenance, 08/12/20 11:32:00 EDT, Capsule, [facility]/pharmacy #[id number], 1 capsule By Mouth Daily, 159, cm, 07/27/20 13:20:00 EDT, Height Start Date: 08/12/20 Status: Ordered omeprazole 40 mg oral enteric coated capsule 1 capsule = 40 mg, By Mouth, 2 times a day, # 60 capsule, 0 Refills, Maintenance, 12/13/20 12:59:00EST, EC Capsule, [facility]/pharmacy #[id number], Partial fill upon patient request if the prescription is for aschedule II opioid drug., 159, cm, 12/12/20 10:33:0... Start Date: 12/13/20 Stop Date: 01/12/21 Status: Ordered omeprazole 40 mg oral enteric coated capsule 1 capsule = 40 mg, By Mouth, 2 times a day, # 60 capsule, 4 Refills, Maintenance, 10/05/20 14:48:00EST, EC Capsule, [facility]/pharmacy #[id number], Partial fill upon patient [...] 12/16/20 14:32:00 EST, Route to Pharmacy Electronically, [facility]/pharmacy #[id number], 159, cm, 12/16/20 13:47:00 EST, Height, 74.1, kg, 10/20/20 16:18:00 EST, Dry Weight Start Date: 12/16/20 Status: Ordered Tylenol 8 HR Arthritis Pain 650 mg oral tablet, extended release 1 tablet = 650 mg, By Mouth, Every 8 hours, # 100 tablet, 1 Refills, Acute 12/05/21 9:00:00 EST, 12/05/20 15:26:00 EST, ER Tablet, [facility]/pharmacy #[id number], 159, cm, 07/27/20 13:20:00 EDT, Height, 74.1, kg, 10/20/20 16:18:00 EST, Dry Weight Start Date: 12/05/20 Stop Date: 12/05/21 Status: Ordered Problem List Condition Effective Dates Status Health Status Inform ant Hematuria(Confirmed) 1 Active Chronic back pain(Confirmed) Active Dyslipidemia(Confirmed) Active h/o allergic rhinitis(Confirmed) Active Illiteracy(Confirmed) Active Dyspepsia(Confirmed) Active Disc displacement(Confirmed) Active [facility]/CC-Serena Purcell-[phone]/Health Assisted, Active Care Coordination(Confirmed) Active Tubular adenoma of colon - d ue 2021(Confirmed) 2 11/2015 Active 1 gross 2-2014, had cystoscopy 2014 Social History Social History Type Response Smoking Status Never smoker entered on: 08/23/16 Sex
--- OUTSIDE RECORDS SUMMARY | 2023-06-10 06:23 | XMS_ITS | Continuity of Care Document ---
Author Name Unknown Organization [facility] Address [address] [place] [address]- Care Team Providers Care Health Researcher Name Role Phone Trenton Eastman MD Primary Care Physician Encounter [facility] [place] Date(s): 09/26/21 - 10/26/21 [facility] [address] [place] [address]- [place] Allergies, Adverse Reactions, Alerts Substance Reaction Severity [...] 10/12/10 Given 1Admin Note: VIS given 05/30/10, Paraguayan form 2Admin Note: VIS given, 08/2008, Paraguayan form Medications amLODIPine 2.5 mg oral tablet 2.5 mg, 1, tablet, By Mouth, Daily, ; STOP amlodipine 5 mg. use this dose instead., # 30 tablet, Refills 11, Tot. Refills 11, Maintenance, 11/22/20 16:52:00 EST, Route to Pharmacy Electronically, [facility]/pharmacy #[id number], label all scripts in [place],... Start Date: 11/22/20 Stop Date: 11/17/21 Status: Ordered azelastine 0.05% ophthalmic solution 1 drops, Eyes, Both, 2 times a day, PRN for allergy symptoms, # 6 mL, 6 Refills, Maintenance, 01/13/21 14:54:00 EDT, [facility]/pharmacy #[id number], Label in Paraguayan, 1 drops Eyes, Both 2 times a [...] Gm, 1 Refills, Maintenance, 06/16/20 18:04:00 EDT, [place], [id number], 159, cm, 06/08/20 13:31:00 EDT, Height Start Date: 06/16/20 Status: Ordered multivitamin Multiple Vitamins oral capsule 1 capsule, By Mouth, Daily, # 90 capsule, 0 Refills, Maintenance, 10/18/21 22:09:00 EST, Capsule, [facility]/pharmacy #[id number], 1 capsule By Mouth Daily, 159, cm, 10/05/21 13:26:00 EST, Height, 78, kg, 01/01/21 16:06:00 EDT, Dry Weight Start Date: 10/18/21 Status: Ordered NuLYTELY with Flavor Packs oral powder for reconstitution 240 mL, By Mouth, Every 10 minutes, # 1 each, 0 Refills, Maintenance, 09/21/21 9:33:00 EST, REC Powder, [facility], Partial fill upon patient request if the prescription is for a schedule II opioid drug., 240 mL By Mouth Every 10 minut... Start Date: 09/21/21 Status: Ordered omeprazole 40 mg oral enteric coated capsule 1 capsule = 40 mg, By Mouth, 2 times a day, # 60 capsule, 2 Refills, Maintenance, 04/13/21 10:31:00EDT, EC Capsule, [facility]/pharmacy #[id number], Partial fill upon patient [...] Mouth, Daily, at night (print label in ukrainian), # 30 capsule, Refills 1, Tot. Refills 1, Maintenance, 09/28/21 14:03:00 EST, Route to Pharmacy Electronically, [facility], Partial fill upon patient request if the... Start Date: 09/28/21 Status: Ordered Tears Naturale Forte preserved ophthalmic solution 1 drops, Eyes, Both, 2 times a day, PRN for dry eyes, # 30 mL, 0 Refills, Maintenance, 08/28/21 14:52:00 EST, Solution, [facility]/pharmacy #[id number], Partial fill upon patient request if the prescription is for a schedule II opioid drug., 1 drops Eyes, Both 2 t... Start Date: 08/28/21 Status: Ordered tiZANidine 2 mg oral capsule 1 capsule = 2 mg, By Mouth, 3 times a day, PRN as needed for muscle spasm, # 9 capsule, 0 Refills, Maintenance, 04/28/21 17:18:00 EDT, Capsule, [facility]/pharmacy #[id number], ukrainian labeling, 159, cm, 04/28/2115:46:00 EDT, Height, 78, kg, 01/01/21 16:06:00 EDT... Start Date: 04/28/21 Stop Date: 05/01/21 Status: Ordered Tums 500 mg oral tablet, chewable 500 mg, 1, tablet, Chew, 2 times a day, # 60 tablet, Refills 5, Tot. Refills 5, Maintenance, 12/16/20 14:32:00 EST, Route to Pharmacy Electronically, [facility]/pharmacy #[id number], 159, cm, 12/16/20 13:47:00 EST, Height, 74.1, kg, 10/20/20 16:18:00 EST, Dry Weight Start Date: 12/16/20 Status: Ordered Problem List Condition Effective Dates Status Health Status Inform ant Hematuria(Confirmed) 1 Active Chronic back pain(Confirmed) Active Dyslipidemia(Confirmed) Active h/o allergic rhinitis(Confirmed) Active Illiteracy(Confirmed) Active Dyspepsia(Confirmed) Active Disc displacement(Confirmed) Active Onychomycosis(Confirmed) Active *[facility]/CC-Patricia [phone]/[facility], Active Care Coordination(Confirmed) Active Muscle spasm(Confirmed) Active Tubular adenoma of colon - d ue 2021(Confirmed) 2 11/2015 Active 1lul -2014, had cystoscopy 2014 Social History Social History Type Response Smoking Status Never smoker entered on: 08/23/16 Sex
--- OUTSIDE RECORDS SUMMARY | 2023-06-10 06:23 | XMS_ITS | Continuity of Care Document ---
Author Name Unknown Organization [facility] Address [address] [place] [address]- Care Team Providers Care Curber Name Role Phone Bebe KRISHNA, Hugh Primary Care Physician Encounter [facility] Date(s): 06/10/20 - 07/10/20 [facility] [address] [place] [address]- [facility] Allergies, Adverse Reactions, Alerts Substance Reaction Severity Status penicillins Active Immunizations Given and Recorded Vaccine Date Status Refusal Reason influenza virus vaccine, inactivated 12/21/19 Give n influenza virus vaccine, inactivated 07/15/19 Give n influenza virus vaccine, inactivated 1 10/12/10 Gi jocy tetanus/diphtheria/pertussis, acel(Tdap) 2 10/12/10 Given 1Admin Note: VIS given 05/30/10, Maori form 2Admin Note: VIS given, 08/2008, Maori form Medications amLODIPine 5 mg oral tablet 5 mg, 1, tablet, By Mouth, Daily, # 90 tablet, Refills 10, Tot. Refills 10, Maintenance, 06/08/20 15:00:00 EDT, Route to Pharmacy Electronically, [facility]/pharmacy #[id number], 159, cm, 06/08/20 13:31:00 EDT, Height Start Date: 06/08/20 Stop Date: 02/23/23 Status: Ordered Artificial Tears preserved solution 1 drops, Eyes, Both, 2 times a day, PRN for dry eyes, # 10 mL, 0 Refills, Maintenance, 10/19/19 14:27:00 EST, Solution, [facility], 1 drops Eyes, Both 2 times a day,PRN:for dry eyes, 159, cm, 10/19/19 13:35:00 EST, Height Start Date: 10/19/19 Status: Ordered dextromethorphan 10 mg/5 mL oral syrup 10 mL = 20 mg, By Mouth, Every 4 hours, PRN as needed for cough, # 120 mL, 0 Refills, Maintenance, 06/21/20 22:41:00 EDT, Syrup, [facility]/pharmacy #[id number], 159, cm, 06/08/20 13:31:00 EDT, Height Start Date: 06/21/20 Status: Ordered Flonase 50 mcg/inh nasal spray 1 sprays, Nares, Both, 2 times a day, # 16 Gm, 1 Refills, Maintenance, 06/16/20 18:04:00 EDT, [place], [facility]/pharmacy #[id number], 1 sprays Nares, Both 2 times [...] 1 Refills, Maintenance, 10/19/19 14:27:00 EST, Suspension, [facility], 20 mL By Mouth 4 times a day,Instr:between meals and at bedtime, 159, cm, 10/19/19 13:35:00... Start Date: 10/19/19 Status: Ordered omeprazole 40 mg oral enteric coated capsule 1 capsule = 40 mg, By Mouth, Daily, # 30 capsule, 2 Refills, Maintenance, 05/12/20 11:33:00 EDT, ECCapsule, [facility]/pharmacy #[id number], 159, cm, 12/21/19 13:52:00 EST, Height Start Date: 05/12/20 Stop Date: 08/10/20 Status: Ordered prazosin 2 mg oral capsule via [facility], 0 Refills, Maintenance, 11/04/19 14:42:00 EST Start Date: 11/04/19 Status: Ordered QUEtiapine 200 mg oral tablet via Syl Riley, Psychiatry, Refills 0, Maintenance, 11/04/19 14:42:00 EST Start Date: 11/04/19 Status: Ordered Tums 500 mg oral tablet, chewable 500 mg, 1, tablet, Chew, 2 times a day, # 60 tablet, Refills 3, Tot. Refills 3, Maintenance, 01/14/20 11:08:00 EDT, Route to Pharmacy Electronically, [facility], 159, cm, 12/21/19 13:52:00 EST, Height Start Date: 01/14/20 Status: Ordered Problem List Condition Effective Dates Status Health Status Inform ant Hematuria(Confirmed) 1 Active Chronic back pain(Confirmed) Active Depression(Confirmed) Active Dyslipidemia(Confirmed) Active h/o allergic rhinitis(Confirmed) Active Illiteracy(Confirmed) Active Dyspepsia(Confirmed) Active Disc displacement(Confirmed) Active *[facility], [facility], (Confirmed) 08/06/18 Active [facility] Pur[facility]-[phone]/Health Long Term, Active Care Coordination(Confirmed) Active Tubular adenoma of colon - d ue 2021(Confirmed) 2 11/2015 Active lul Vick 2-2014, had cystoscopy 2014 Social History Social History Type Response Smoking Status Never smoker entered on: 08/23/16 Sex
--- OUTSIDE RECORDS SUMMARY | 2023-06-10 06:23 | XMS_ITS | Continuity of Care Document ---
Author Name Unknown Organization [facility] Address [address] [place] [address]- Care Team Providers Care Pearl Hand Name Role Phone Trenton Eastman MD Primary Care Physician Encounter [facility] Date(s): 10/19/21 - 11/18/21 [facility] [address] [place], [place] [address] Attending Physician: Viky Garcia Admitting Physician: AdmtrViky Referring Physician: Admtr, ArJasson Allergies, Adverse Reactions, Alerts Substance Reaction Severity [...] 10/12/10 Given 1Admin Note: VIS given 05/30/10, Guatemalan form 2Admin Note: VIS given, 08/2008, Guatemalan form Medications amLODIPine 2.5 mg oral tablet 2.5 mg, 1, tablet, By Mouth, Daily, ; STOP amlodipine 5 mg. use this dose instead., # 30 tablet, Refills 5, Tot. Refills 5, Maintenance, 11/17/21 16:52:00 EST, Route to Pharmacy Electronically,[facility]/pharmacy #[id number], label all scripts in FRENCH, 1... Start Date: 11/17/21 Stop Date: 05/16/22 Status: Ordered azelastine 0.05% ophthalmic solution 1 drops, Eyes, Both, 2 times a day, PRN for allergy symptoms, # 6 mL, 6 Refills, Maintenance, 01/13/21 14:54:00 EDT, [facility]/pharmacy #[id number], Label in Guatemalan, 1 drops Eyes, Both 2 times a [...] Gm, 1 Refills, Maintenance, 06/16/20 18:04:00 EDT, [place], [facility]/pharmacy #[id number], 159, cm, 06/08/20 13:31:00 EDT, Height Start Date: 06/16/20 Status: Ordered multivitamin Multiple Vitamins oral capsule 1 capsule, By Mouth, Daily, # 90 capsule, 0 Refills, Maintenance, 10/18/21 22:09:00 EST, Capsule, [facility]/pharmacy #[id number], 1 capsule By Mouth Daily, 159, cm, 10/05/21 13:26:00 EST, Height, 78, kg, 01/01/21 16:06:00 EDT, Dry Weight Start Date: 10/18/21 Status: Ordered NuLYTELY with Flavor Packs oral powder for reconstitution 240 mL, By Mouth, Every 10 minutes, # 1 each, 0 Refills, Maintenance, 09/21/21 9:33:00 EST, REC Powder, [facility], Partial fill upon patient request if the prescription is for a schedule II opioid drug., 240 mL By Mouth Every 10 minut... Start Date: 09/21/21 Status: Ordered omeprazole 40 mg oral enteric coated capsule 1 capsule = 40 mg, By Mouth, 2 times a day, # 60 capsule, 2 Refills, Maintenance, 04/13/21 10:31:00EDT, EC Capsule, [facility]/pharmacy #[id number], Partial fill upon [...] Mouth, Daily, at night (print label in djiboutian), # 30 capsule, Refills 1, Tot. Refills 1, Maintenance, 09/28/21 14:03:00 EST, [facility], [facility] fill upon patient request if [...] Refills, Maintenance, 04/28/21 17:18:00 EDT, Capsule, [facility]/pharmacy #[id number], djiboutian labeling, 159, cm, 04/28/2115:46:00 EDT, Height, 78, [...] Active Disc displacement(Confirmed) Active Onychomycosis(Confirmed) Active *[facility]/CC-Patricia [phone]/Health Long-Term, Active Care Coordination(Confirmed) Active Muscle spasm(Confirmed) Active Tubular adenoma of colon - d ue 2021(Confirmed) 2 11/2015 Active 1, gross 2-2014, had cystoscopy 2014 Social History Social History Type Response Smoking Status Never smoker entered on: 08/23/16 Sex
--- OUTSIDE RECORDS SUMMARY | 2023-06-10 06:23 | XMS_ITS | Continuity of Care Document ---
Author Name Unknown Organization [facility] Address [address] [place] [address]- Care Team Providers Care Cellar Supervisor Name Role Phone Trenton Eastman MD Primary Care Physician [phone] [place]counter [facility] [place] Date(s): 01/07/23 - 03/09/[address] [address]- Attending Physician: Maynor Salgado OD Admitting Physician: Maynor Salgado OD Allergies, Adverse Reactions, Alerts Substance Reaction Severity [...] inactivated 1 10/12/10 Gi jocy SARS-CoV-2 mRNA ([id number]) vax 06/13/22 Recorded SARS-CoV-2 (COVID-19) mRNA BNT-162b2 vac 09/13/21 Recorded SARS-CoV-2 (COVID-19) mRNA BNT-162b2 vac 02/27/21 Given SARS-CoV-2 (COVID-19) mRNA BNT-162b2 vac 02/06/21 Given tetanus-diphtheria toxoids (Td) 11/23/20 Given tetanus/diphtheria/pertussis, acel(Tdap) 2 10/12/10 Given 1Admin Note: VIS given 05/30/10, [place] Citizen form 2Admin Note: VIS given, 08/2008, [place] Citizen form Medications amLODIPine 5 mg oral tablet 5 mg, 1, tablet, By Mouth, Daily, # 90 tablet, Refills 3, Tot. Refills 3, Maintenance, 11/01/22 9:44:00 EST, Route to Pharmacy Electron[facility], [facility] [...] tablet = 0.5 mg, By Mouth, Once, afghan label, take 30 mins to 1 hr before flight, # 2 tablet, 0Refills, Soft Stop, 10/08/22 17:54:00 EST, Tablet, [facility]/pharmacy #[id number], Partial fill upon patient request if the prescription is for a schedule II opioi... Start Date: 10/08/22 Status: Ordered atorvastatin 40 mg oral tablet 1 tablet = 40 mg, By Mouth, Daily, # 30 tablet, 5 Refills, Maintenance, 12/19/22 14:49:00 EST, Tablet, [facility], Partial fill upon patient request if the prescription is for a schedule II opioid drug., 162.56, cm, 12/19/22 14:01:00 E... Start Date: 12/19/22 Status: Ordered azelastine 137 mcg/inh (0.1%) nasal spray 0 Refills, Maintenance, 12/07/21 11:16:00 EST, via Dr Glover, certified fraud examiner Start Date: 12/07/21 Status: Ordered baclofen 10 mg oral tablet See Instructions, TOME JOAN TABLETA POR VIA ORAL KARLA VECES AL MONICA, # 63 tablet, Refills 0, Instructions Replace Required Details, Route to Pharmacy Electronically, [id number], 157.5, cm, 04/10/22 10:29:00 EDT, Height, 75, [...] 2 times a day, Print instructions in afghan use only for toenails, # 60 mL, 1 Refills, Maintenance, 01/18/23 10:15:00 EDT, Suspension, [facility]/pharmacy #[id number], Partial fill uponpatient request if the prescription is for a sched... Start Date: 01/18/23 Status: Ordered [facility] Maintenance, 12/07/21 11:16:00 EST, via Dr Glover, certified fraud examiner, Supply Start Date: 12/07/21 Status: Ordered diclofenac [...] 1 application, Topically, Daily, Print instructions in afghan Use only on feet, # 60 Gm, 1 Refills, Maintenance, 01/18/23 10:16:00 EDT, [place], [facility]/pharmacy #[id number], Partial fill upon patient request if the prescription is for a schedule II opioid drug... Start Date: 01/18/23 Status: Ordered loratadine 10 mg oral tablet 10 mg, 1, tablet, By Mouth, Daily, # 30 tablet, Refills 5, Tot. Refills 5, Maintenance, 12/18/21 10:54:00 EST, Route to Pharmacy Electronically, [facility]/pharmacy #[id number], Partial fill upon patient request if the prescription is for a schedule II opioid drug... Start Date: 12/18/21 Status: Ordered LUBRICNT EYE JESSICA 0.4-0.3% Maintenance, 12/07/21 11:16:00 EST, via Dr Glover, certified fraud examiner, Supply Start Date: 12/07/21 Status: Ordered minoxidil [...] EDT, He... Start Date: 06/11/22 Status: Ordered Robeline-3 1000 mg oral capsule via psychiatry, 0 Refills, Maintenance, 12/07/21 11:13:00 EST, Partial fill upon patient request ifthe prescription is for a schedule II opioid drug. Start Date: 12/07/21 Status: Ordered omeprazole 40 mg oral enteric coated capsule See Instructions, JUAN RAMON DELGADO AL MONICA, # 180 capsule, 1 Refills, Maintenance, 02/25/23 7:44:00 EDT, [id number], 158, cm, 02/20/23 9:30:00 EDT, Height, 76.5, kg, 06/12/22 13:23:00 EDT, Dry Weight Start Date: 02/25/23 Status: Ordered Lynette-Colace 50 mg-8.6 mg oral tablet 2 tablet, By Mouth, Daily at bedtime, PRN Constipation, For constipation, # 60 tablet, 0 Refills, Maintenance, 01/02/22 20:52:00 EDT, Tablet, [facility]/pharmacy #[id number], [...] 15:27:00 EDT, Tablet, [id number], label in [place] Citizen, 162.56,cm, 01/14/23 15:01:00 EDT, Height, 76.5, kg, [...] mL, 4 Refills, Maintenance, 02/28/22 16:09:00 EDT, [place], [id number], Partial fill upon patient request [...] class I Confirmed Active Onychomycosis Confirmed Active *[facility]/CC-Patricia [phone]/He alth Assisted, Active Care Coordination Confirmed Active [...] Team Personnel Name: Raiza KRISHNA, Trenton Position: [facility] Resident Member Role: PCP Address: Address: [address] [place] [address]- Care Team Related Persons Name: AJAY BE Address: [place] [address] Name: KAMALJIT FUCHS Address: home [address] [place] [address] [address] [place] [id number]
--- OUTSIDE RECORDS SUMMARY | 2023-06-10 06:23 | XMS_ITS | Continuity of Care Document ---
Author Name Unknown Organization [facility] Address [address] [place] [address]- Care Team Providers Care Biochemistry Teacher Name Role Phone Bebe KRISHNA, Hugh Primary Care Physician [phone] Encounter [facility] Date(s): 07/30/20 - 10/02/20 [facility] [address] [place], [place] [address] Attending Physician: Lloyd Santiago MD Admitting Physician: [...] VIS given, 08/2008, Guinean form Medications amLODIPine 5 mg oral tablet 5 mg, 1, tablet, By Mouth, Daily, # 90 tablet, Refills 10, Tot. Refills 10, Maintenance, 06/08/20 15:00:00 EDT, Route to Pharmacy Electronically, [facility]/pharmacy #[id number], 159, cm, 06/08/20 13:31:00 EDT, Height Start Date: 06/08/20 Stop Date: 02/23/23 Status: Ordered Artificial Tears preserved solution 1 drops, Eyes, Both, 2 times a day, PRN for dry eyes, # 10 mL, 0 Refills, Maintenance, 10/19/19 14:27:00 EST, [facility], 1 drops Eyes, Both 2 times a day,PRN:for dry eyes, 159, cm, 10/19/19 13:35:00 EST, Height Start Date: 10/19/19 Status: Ordered dextromethorphan 10 mg/5 mL oral syrup 10 mL = 20 mg, By Mouth, Every 4 hours, PRN as needed for cough, # 120 mL, 0 Refills, Maintenance, 06/21/20 22:41:00 EDT, Syrup, [facility]/pharmacy #[id number], 159, cm, 06/08/20 13:31:00 EDT, Height Start Date: 06/21/20 Status: Ordered Flonase 50 mcg/inh nasal spray 1 sprays, Nares, Both, 2 times a day, # 16 Gm, 1 Refills, Maintenance, 06/16/20 18:04:00 EDT, [place], [facility]/pharmacy #[id number], 1 sprays Nares, Both 2 times a day, 159, cm, 06/08/20 13:31:00 EDT, Height Start Date: 06/16/20 Status: Ordered meloxicam 15 mg oral tablet 1 tablet = 15 mg, By Mouth, Daily, # 30 tablet, 1 Refills, Maintenance, 09/12/20 13:30:00 EST, Tablet, [facility] Partial fill upon patient request, 159, cm, 07/27/20 13:20:00 EDT, Height Start Date: 09/12/20 Stop Date: 09/13/21 Status: Ordered multivitamin Multiple Vitamins oral capsule 1 capsule, By Mouth, Daily, # 90 capsule, 11 Refills, Maintenance, 08/12/20 11:32:00 EDT, Capsule, [facility]/pharmacy #[id number], 1 capsule By Mouth Daily, 159, cm, 07/27/20 13:20:00 EDT, Height Start Date: 08/12/20 Status: Ordered Mylanta Maximum Strength oral suspension 20 mL, By Mouth, 4 times a day, between meals and at bedtime, # 240 mL, 1 Refills, Maintenance, 10/19/19 14:27:00 EST, [facility] 20 mL By Mouth 4 times a day,Instr:between meals and at bedtime, 159, cm, 10/19/19 13:35:00... Start Date: 10/19/19 Status: Ordered omeprazole 20 mg oral delayed release tablet 1 tablet = 20 mg, By Mouth, 2 times a day, # 60 tablet, 4 Refills, Maintenance, 07/27/20 13:58:00 EDT, EC Tablet, [facility]/pharmacy #[id number], 159, cm, 07/27/20 13:20:00 EDT, Height Start Date: 07/27/20 Status: Ordered prazosin 2 mg oral capsule via [facility], 0 Refills, Maintenance, 11/04/19 14:42:00 EST Start Date: 11/04/19 Status: Ordered QUEtiapine 100 mg oral tablet TAKE 1 TABLET BY MOUTH EVERY MORNING FOR PSYCHOSIS AND MOOD IMPROVEMENT Start Date: 09/12/20 Status: Ordered QUEtiapine 300 mg oral tablet TAKE 1 TABLET BY MOUTH AT BEDTIME DIRECTED FOR PSYCHOSIS, SLEEP AND MOOD STABILIZATION Start Date: 09/12/20 Status: Ordered Tums 500 mg oral tablet, chewable 500 mg, 1, tablet, Chew, 2 times a day, # 60 tablet, Refills 3, Tot. Refills 3, Maintenance, 01/14/20 11:08:00 EDT, Route to Pharmacy Electronically, [facility] 159, cm, 12/21/19 13:52:00 EST, Height Start Date: 01/14/20 Status: Ordered Tylenol 8 HR Arthritis Pain 650 mg oral tablet, extended release 1 tablet = 650 mg, By Mouth, Every 8 hours, # 100 tablet, 1 Refills, Acute 09/11/21 13:31:00 EST, 09/12/20 13:30:00 EST, ER Tablet, [facility] 159, cm, 07/27/20 13:20:00 EDT, Height Start Date: 09/12/20 Stop Date: 09/11/21 Status: Ordered Problem List Condition Effective Dates Status Health Status Inform ant Hematuria(Confirmed) 1 Active Chronic back pain(Confirmed) Active Depression(Confirmed) Active Dyslipidemia(Confirmed) Active h/o allergic rhinitis(Confirmed) Active Illiteracy(Confirmed) Active Dyspepsia(Confirmed) Active Disc displacement(Confirmed) Active [facility]cell-[phone]/[facility], Active Care Coordination(Confirmed) Active Tubular adenoma of colon - d ue 2021(Confirmed) 2 11/2015 Active 1, gross 2-2014, had cystoscopy 2014 Social History Social History Type Response Smoking Status Never smoker entered on: 08/23/16 Sex
--- OUTSIDE RECORDS SUMMARY | 2023-06-10 06:24 | XMS_ITS | Continuity of Care Document ---
Author Name Unknown Organization [facility] Address [address] [place] [address]- Care Team Providers Care Tire Groover Name Role Phone Bebe KRISHNA, Hugh Primary Care Physician Encounter [facility] Date(s): 02/28/21 - 03/30/21 [facility] [address] [place] [address]- Allergies, Adverse Reactions, Alerts Substance Reaction Severity [...] 10/12/10 Given 1Admin Note: VIS given 05/30/10, Salvadorean form 2Admin Note: VIS given, 08/2008, Salvadorean form Medications amLODIPine 2.5 mg oral tablet 2.5 mg, 1, tablet, By Mouth, Daily, ; STOP amlodipine 5 mg. use this dose instead., # 30 tablet, Refills 11, Tot. Refills 11, Maintenance, 11/22/20 16:52:00 EST, Route to Pharmacy Electronically, [facility]/pharmacy #[id number], label all scripts in GUAMANIAN,... Start Date: 11/22/20 Stop Date: 11/17/21 Status: Ordered azelastine 0.05% ophthalmic solution 1 drops, Eyes, Both, 2 times a day, PRN for allergy symptoms, # 6 mL, 6 Refills, Maintenance, 01/13/21 14:54:00 EDT, [facility]/pharmacy #[id number], Label in Salvadorean, 1 drops Eyes, Both 2 times a day,PRN:for allergy symptoms, 159, cm, 01/04/21 9:23:00 EDT, Height... Start Date: 01/13/21 Status: Ordered diclofenac 1% topical gel 1 application, Topically, 4 times a day, not to exceed 32 grams/day, # 100 Gm, 2 Refills, Maintenance, 12/12/20 11:17:00 EST, Gel, [facility]/pharmacy #[id number], Label in Salvadorean please, 159, cm, 12/12/20 10:33:00 EST, Height, 74.1, kg, 10/20/20 16:18:00 EST, Start Date: 12/12/20 Status: Ordered Flonase 50 mcg/inh nasal spray 1 sprays, Nares, Both, Daily, # 16 Gm, 1 Refills, Maintenance, 06/16/20 18:04:00 EDT, [place], [id number], 159, cm, 06/08/20 13:31:00 EDT, [...] day, # 60 capsule, 0 Refills, Maintenance, 03/14/21 10:31:00EDT, EC Capsule, [id number], Partial fill upon patient request if the prescription is for aschedule II opioid drug., 159, cm, 01/04/21 9:23:00... Start Date: 03/14/21 Stop Date: 04/13/21 Status: Ordered prazosin 2 mg oral capsule [...] 12/16/20 14:32:00 EST, Route to Pharmacy Electronically, [facility]/pharmacy #[id number], 159, cm, 12/16/20 13:47:00 EST, Height, 74.1, kg, 10/20/20 16:18:00 EST, Dry Weight Start Date: 12/16/20 Status: Ordered Problem List Condition Effective Dates Status Health Status Inform ant Hematuria(Confirmed) 1 Active Chronic back pain(Confirmed) Active Dyslipidemia(Confirmed) Active h/o allergic rhinitis(Confirmed) Active Illiteracy(Confirmed) Active Dyspepsia(Confirmed) Active Disc displacement(Confirmed) Active [facility]-[phone]/[facility], Active Care Coordination(Confirmed) Active Tubular adenoma of colon - d ue 2021(Confirmed) 2 11/2015 Active 1 gross 2-2014, had cystoscopy 2014 Social History Social History Type Response Smoking Status Never smoker entered on: 08/23/16 Sex
--- OUTSIDE RECORDS SUMMARY | 2023-06-10 06:24 | XMS_ITS | Continuity of Care Document ---
Author Name Unknown Organization [facility] Address [address] [place] [address]- Care Team Providers Care Title One Kindergarten Teacher Name Role Phone Bebe KRISHNA, Hugh Primary Care Physician [phone] Encounter [facility] Date(s): 03/16/21 - 04/20/21 [facility] [address] [place] [address]- Attending Physician: Lloyd Santiago MD Admitting Physician: [...] 10/12/10 Given 1Admin Note: VIS given 05/30/10, Gambian form 2Admin Note: VIS given, 08/2008, Gambian form Medications amLODIPine 2.5 mg oral tablet 2.5 mg, 1, tablet, By Mouth, Daily, ; STOP amlodipine 5 mg. use this dose instead., # 30 tablet, Refills 11, Tot. Refills 11, Maintenance, 11/22/20 16:52:00 EST, Route to Pharmacy Electronically, [facility]/pharmacy #[id number], label all scripts in TELUGU,... Start Date: 11/22/20 Stop Date: 11/17/21 Status: Ordered azelastine 0.05% ophthalmic solution 1 drops, Eyes, Both, 2 times a day, PRN for allergy symptoms, # 6 mL, 6 Refills, Maintenance, 01/13/21 14:54:00 EDT, [facility]/pharmacy #[id number], Label in Gambian, 1 drops Eyes, Both 2 times a day,PRN:for allergy symptoms, 159, cm, 01/04/21 9:23:00 EDT, Height... Start Date: 01/13/21 Status: Ordered diclofenac 1% topical gel 1 application, Topically, 4 times a day, not to exceed 32 grams/day, # 100 Gm, 2 Refills, Maintenance, 12/12/20 11:17:00 EST, Gel, [facility]/pharmacy #[id number], Label in Gambian please, 159, cm, 12/12/20 10:33:00 EST, Height, 74.1, kg, 10/20/20 16:18:00 EST, DrDonal.. Start Date: 12/12/20 Status: Ordered Flonase 50 mcg/inh nasal spray 1 sprays, Nares, Both, Daily, # 16 Gm, 1 Refills, Maintenance, 06/16/20 18:04:00 EDT, [place], [id number], 159, cm, 06/08/20 13:31:00 EDT, Height Start Date: 06/16/20 Status: Ordered multivitamin Multiple Vitamins oral capsule 1 capsule, By Mouth, Daily, # 90 capsule, 1 Refills, Maintenance, 02/06/21 14:59:00 EDT, Capsule, [facility]/pharmacy #[id number], 1 capsule By Mouth [...] 12/16/20 14:32:00 EST, Route to Pharmacy Electronically, [facility]/pharmacy #[id number], 159, cm, 12/16/20 13:47:00 EST, Height, 74.1, kg, 10/20/20 16:18:00 EST, Dry Weight Start Date: 12/16/20 Status: Ordered Problem List Condition Effective Dates Status Health Status Inform ant Hematuria(Confirmed) 1 Active Chronic back pain(Confirmed) Active Dyslipidemia(Confirmed) Active h/o allergic rhinitis(Confirmed) Active Illiteracy(Confirmed) Active Dyspepsia(Confirmed) Active Disc displacement(Confirmed) Active [facility]cell-[phone]/[facility], Active Care Coordination(Confirmed) Active Tubular adenoma of colon - d ue 2021(Confirmed) 2 11/2015 Active lul Vick 2-2014, had cystoscopy 2014 Social History Social History Type Response Smoking Status Never smoker entered on: 08/23/16 Sex
--- OUTSIDE RECORDS SUMMARY | 2023-06-10 06:24 | XMS_ITS | Continuity of Care Document ---
Author Name Unknown Organization [facility] Address [address] [place] [address]- Care Team Providers Care Pearl Peller Name Role Phone Bebe KRISHNA, Hugh Primary Care Physician Encounter [facility] Date(s): 09/27/20 - 10/27/20 [facility] [address], [place] [address] Allergies, Adverse Reactions, Alerts Substance Reaction Severity Status penicillins Active Immunizations Given and Recorded Vaccine Date Status Refusal Reason influenza virus vaccine, inactivated 07/27/20 Give n influenza virus vaccine, inactivated 12/21/19 Give n influenza virus vaccine, inactivated 07/15/19 Give n influenza virus vaccine, inactivated 1 10/12/10 Gi jocy tetanus/diphtheria/pertussis, acel(Tdap) 2 10/12/10 Given 1Admin Note: VIS given 05/30/10, Japanese form 2Admin Note: VIS given, 08/2008, Japanese form Medications amLODIPine 5 mg oral tablet 5 mg, 1, tablet, By Mouth, Daily, # 90 tablet, Refills 10, Tot. Refills 10, Maintenance, 06/08/20 15:00:00 EDT, Route to Pharmacy Electronically, [facility]/pharmacy #[id number], 159, cm, 06/08/20 13:31:00 EDT, Height Start Date: 06/08/20 Stop Date: 02/23/23 Status: Ordered Artificial Tears preserved solution 1 drops, Eyes, Both, 2 times a day, PRN for dry eyes, # 10 mL, 0 Refills, Maintenance, 10/19/19 14:27:00 EST, [facility], 1 drops Eyes, Both 2 times a day,PRN:for dry eyes, 159, cm, 10/19/19 13:35:00 EST, Height Start Date: 10/19/19 Status: Ordered Flonase 50 mcg/inh nasal spray 1 sprays, Nares, Both, Daily, # 16 Gm, 1 Refills, Maintenance, 06/16/20 18:04:00 EDT, [place], [facility]/pharmacy #[id number], 159, cm, 06/08/20 13:31:00 EDT, Height Start Date: 06/16/20 Status: Ordered multivitamin Multiple Vitamins oral capsule 1 capsule, By Mouth, Daily, # 90 capsule, 11 Refills, Maintenance, 08/12/20 11:32:00 EDT, Capsule, [facility]/pharmacy #[id number], 1 capsule By Mouth Daily, 159, cm, 07/27/20 13:20:00 EDT, Height Start Date: 08/12/20 Status: Ordered Mylanta Maximum Strength oral suspension 20 mL, By Mouth, 4 times a day, between meals and at bedtime, # 240 mL, 1 Refills, Maintenance, 10/19/19 14:27:00 EST, Suspension, [facility], 20 mL By Mouth 4 times a day,Instr:between meals and at bedtime, 159, cm, 10/19/19 13:35:00... Start Date: 10/19/19 Status: Ordered omeprazole 40 mg oral enteric coated capsule 1 capsule = 40 mg, By Mouth, 2 times a day, # 60 capsule, 4 Refills, Maintenance, 10/05/20 14:48:00EST, EC Capsule, [facility]/pharmacy #[id number], Partial [...] 10/20/20 18:51:00 EST, Route to Pharmacy Electronically, [facility]/pharmacy #[id number], Partial fill upon patient request if the prescription is for a schedule II opio... Start Date: 10/20/20 Stop Date: 10/27/20 Status: Ordered Tums 500 mg oral tablet, chewable 500 mg, 1, tablet, Chew, 2 times a day, # 60 tablet, Refills 3, Tot. Refills 3, Maintenance, 01/14/20 11:08:00 EDT, Route to Pharmacy Electronically, [facility], 159, cm, 12/21/19 13:52:00 EST, Height Start Date: 01/14/20 Status: Ordered Tylenol 8 HR Arthritis Pain 650 mg oral tablet, extended release 1 tablet = 650 mg, By Mouth, Every 8 hours, # 100 tablet, 1 Refills, Acute 09/11/21 13:31:00 EST, 09/12/20 13:30:00 EST, ER Tablet, [facility], 159, cm, 07/27/20 13:20:00 EDT, Height Start Date: 09/12/20 Stop Date: 09/11/21 Status: Ordered Problem List Condition Effective Dates Status Health Status Inform ant Hematuria(Confirmed) 1 Active Chronic back pain(Confirmed) Active Dyslipidemia(Confirmed) Active h/o allergic rhinitis(Confirmed) Active Illiteracy(Confirmed) Active Dyspepsia(Confirmed) Active Disc displacement(Confirmed) Active [facility]cell-[phone]/[facility], Active Care Coordination(Confirmed) Active Tubular adenoma of colon - d ue 2021(Confirmed) 2 11/2015 Active lul Vick 2-2014, had cystoscopy 2014 Social History Social History Type Response Smoking Status Never smoker entered on: 08/23/16 Sex
--- OUTSIDE RECORDS SUMMARY | 2023-06-10 06:24 | XMS_ITS | Continuity of Care Document ---
Author Name Unknown Organization [facility] Address [address] [place] [address]- Care Team Providers Care Master Cook Name Role Phone Trenton Eastman MD Primary Care Physician Encounter [facility] Date(s): 07/11/21 - 08/10/21 [facility] [address] [place], [place] [address] Allergies, Adverse Reactions, Alerts Substance [...] 10/12/10 Given 1Admin Note: VIS given 05/30/10, Syrian form 2Admin Note: VIS given, 08/2008, Syrian form Medications amLODIPine 2.5 mg oral tablet 2.5 mg, 1, tablet, By Mouth, Daily, ; STOP amlodipine 5 mg. use this dose instead., # 30 tablet, Refills 11, Tot. Refills 11, Maintenance, 11/22/20 16:52:00 EST, Route to Pharmacy Electronically, [facility]/pharmacy #[id number], label all scripts in VIETNAMESE,... Start Date: 11/22/20 Stop Date: 11/17/21 Status: Ordered azelastine 0.05% ophthalmic solution 1 drops, Eyes, Both, 2 times a day, PRN for allergy symptoms, # 6 mL, 6 Refills, Maintenance, 01/13/21 14:54:00 EDT, [facility]/pharmacy #[id number], Label in Syrian, 1 drops Eyes, Both 2 times a day,PRN:for allergy symptoms, 159, cm, 01/04/21 9:23:00 EDT, Height... Start Date: 01/13/21 Status: Ordered diclofenac 3% topical gel 1 application, Topically, 2 times a day, # 100 Gm, 0 Refills, Maintenance, 04/28/21 17:22:00 EDT, Gel, [facility]/pharmacy #[id number], Partial fill upon patient request if the prescription is for a schedule II opioid drug., 1 application Topically 2 times a day,... Start Date: 04/28/21 Status: Ordered Flonase 50 mcg/inh nasal spray 1 sprays, Nares, Both, Daily, # 16 Gm, 1 Refills, Maintenance, 06/16/20 18:04:00 EDT, [place], [facility]/pharmacy #[id number], 159, cm, 06/08/20 13:31:00 EDT, Height Start Date: 06/16/20 Status: Ordered multivitamin Multiple Vitamins oral capsule 1 capsule, By Mouth, Daily, # 90 capsule, 1 Refills, Maintenance, 02/06/21 14:59:00 EDT, Capsule, [facility]/pharmacy #[id number], 1 capsule By Mouth Daily, 159, cm, 01/04/21 9:23:00 EDT, Height, 78, kg, 01/02/2116:06:00 EDT, Dry Weight Start Date: 02/06/21 Status: Ordered omeprazole 40 mg oral enteric coated capsule 1 capsule = 40 mg, By Mouth, 2 times a day, # 60 capsule, 2 Refills, Maintenance, 04/13/21 10:31:00EDT, EC Capsule, [facility]/pharmacy #[id number], Partial fill upon patient [...] 0 Refills, Maintenance, 04/28/21 17:18:00 EDT, Capsule, [facility]/pharmacy #[id number], bermudian labeling, 159, cm, 04/28/2115:46:00 EDT, Height, 78, kg, 01/01/21 16:06:00 EDT... Start Date: 04/28/21 Stop Date: 05/01/21 Status: Ordered Tums 500 mg oral tablet, chewable 500 mg, 1, tablet, Chew, 2 times a day, # 60 tablet, Refills 5, Tot. Refills 5, Maintenance, 12/16/20 14:32:00 EST, Route to Pharmacy Electronically, [facility]/pharmacy #[id number], 159, cm, 12/16/20 13:47:00 EST, Height, 74.1, kg, 10/20/20 16:18:00 EST, Dry Weight Start Date: 12/16/20 Status: Ordered Problem List Condition Effective Dates Status Health Status Inform ant Hematuria(Confirmed) 1 Active Chronic back pain(Confirmed) Active Dyslipidemia(Confirmed) Active h/o allergic rhinitis(Confirmed) Active Illiteracy(Confirmed) Active Dyspepsia(Confirmed) Active Disc displacement(Confirmed) Active Onychomycosis(Confirmed) Active [facility]-[phone]/[facility], Active Care Coordination(Confirmed) Active Muscle spasm(Confirmed) Active Tubular adenoma of colon - d ue 2021(Confirmed) 2 11/2015 Active 1, gross 2-2014, had cystoscopy 2014 Social History Social History Type Response Smoking Status Never smoker entered on: 08/23/16 Sex
--- OUTSIDE RECORDS SUMMARY | 2023-06-10 06:24 | XMS_ITS | Continuity of Care Document ---
Author Name Unknown Organization [facility] Address [address] [place] [address]- Care Team Providers Care Decorating Machine Tender Name Role Phone Trenton Eastman MD Primary Care Physician [phone] Encounter [facility] Date(s): 03/08/22 - 04/07/22 [facility] [address] [place] [address]- Allergies, Adverse Reactions, Alerts Substance Reaction Severity [...] 10/12/10 Given 1Admin Note: VIS given 05/30/10, Greek form 2Admin Note: VIS given, 08/2008, Greek form Medications amLODIPine 2.5 mg oral tablet 2.5 mg, 1, tablet, By Mouth, Daily, ; STOP amlodipine 5 mg. use this dose instead., # 30 tablet, Refills 5, Tot. Refills 5, Maintenance, 11/17/21 16:52:00 EST, Route to Pharmacy Electronically,[facility]/pharmacy #[id number], label all scripts in INDIAN, 1... Start Date: 11/17/21 Stop Date: 05/16/22 Status: Ordered azelastine 0.05% ophthalmic solution 1 drops, Eyes, Both, 2 times a day, PRN for allergy symptoms, For eye allergies, # 6 mL, 6 Refills,Maintenance, 02/28/22 16:27:00 EDT, [facility]/pharmacy #[id number], Label in Greek, 1 drops Eyes, Both 2 times a day,PRN:for allergy symptoms,Instr:For eye aller... Start Date: 02/28/22 Status: Ordered azelastine 137 mcg/inh (0.1%) nasal spray 0 Refills, Maintenance, 12/07/21 11:16:00 EST, via Dr Glover, planner internship Start Date: 12/07/21 Status: Ordered baclofen 10 mg oral tablet 10 mg, 1, tablet, By Mouth, 3 times a day, # 63 tablet, Refills 0, Tot. Refills 0, Maintenance, 03/27/22 10:09:00 EDT, Route to Pharmacy Electronically, [facility]/pharmacy #[id number], Partial fill upon patient request if the prescription is for a schedule II opi... Start Date: 03/27/22 Stop Date: 04/17/22 Status: Ordered buPROPion 150 mg/24 hours (XL) [...] Maintenance, 12/07/21 11:16:00 EST, via Dr Glover, planner internship, Supply Start Date: 12/07/21 Status: Ordered cyclobenzaprine 5 mg oral tablet 0 Refills, Maintenance, 09/28/21 13:55:00 EST, Partial fill upon patient request if the prescription is for a schedule II opioid drug. Start Date: 09/28/21 Status: Ordered diclofenac 3% topical gel 1 application, Topically, 2 times a day, # 100 Gm, 0 Refills, Maintenance, 04/28/21 17:22:00 EDT, Gel, [facility]/pharmacy #[id number], Partial fill upon patient request if the prescription is for a schedule II opioid drug., 1 application Topically 2 times a day,... Start Date: 04/28/21 Status: Ordered Flonase 50 mcg/inh nasal spray 1 sprays, Nares, Both, Daily, # 16 Gm, 1 Refills, Maintenance, 11/30/21 10:55:00 EST, [place], [facility]/pharmacy #[id number], 1 sprays Nares, Both Daily, 159, [...] 10:54:00 EST, Route to Pharmacy Electronically, [facility]/pharmacy #[id number], Partial fill upon patient request if the prescription is for a schedule II opioid drug... Start Date: 12/18/21 Status: Ordered LUBRICNT EYE JESSICA 0.4-0.3% Maintenance, 12/07/21 11:16:00 EST, via Dr Glover, planner internship, Supply Start Date: 12/07/21 Status: Ordered minoxidil [...] Dry Weight Start Date: 03/22/22 Status: Ordered naproxen 500 mg oral tablet 1 tablet = 500 mg, By Mouth, 2 times a day, for 10 days, # 20 tablet, 0 Refills, Acute 04/12/22 18:45:00 EDT, 04/02/22 18:45:00 EDT, Tablet, [id number], Partial fill upon patient request if the prescription is for a schedule II opioid drug., 1... Start Date: 04/02/22 Stop Date: 04/12/22 Status: Ordered NuLYTELY with Flavor Packs oral powder for reconstitution 240 mL, By Mouth, Every 10 minutes, # 1 each, 0 Refills, Maintenance, 09/21/21 9:33:00 EST, REC Powder, [facility], Partial fill upon patient request if the prescription is for a schedule II opioid drug., 240 mL By Mouth Every 10 minut... Start Date: 09/21/21 Status: Ordered Melrose-3 1000 mg oral capsule via psychiatry, 0 [...] Refills, Maintenance, 01/02/22 20:52:00 EDT, Tablet, [facility]/pharmacy #[id number], Partial fill upon patient request if [...] mL, 4 Refills, Maintenance, 02/28/22 16:09:00 EDT, [place], [facility]/pharmacy #[id number], Partial fill upon patient request if the prescription is for a schedule II opioid drug., 1 sprays N... Start Date: 02/28/22 Status: Ordered tamsulosin 0.4 mg oral capsule 0.4 mg, 1, capsule, By Mouth, Daily, at night (print label in burmese), # 30 capsule, Refills 1, Tot. Refills 1, Maintenance, 09/28/21 14:03:00 EST, Route to Pharmacy Electronically, [facility], Partial fill upon patient request if the... Start Date: 09/28/21 Status: Ordered Tears Naturale Forte preserved ophthalmic solution 1 drops, Eyes, Both, 2 times a day, PRN for dry eyes, # 30 mL, 0 Refills, Maintenance, 08/28/21 14:52:00 EST, Solution, [facility]/pharmacy #[id number], Partial fill upon patient request if the prescription is for a schedule II opioid drug., 1 drops Eyes, Both 2 t... Start Date: 08/28/21 Status: Ordered tiZANidine 2 mg oral capsule 1 capsule = 2 mg, By Mouth, 3 times a day, PRN as needed for muscle spasm, # 9 capsule, 0 Refills, Maintenance, 04/28/21 17:18:00 EDT, Capsule, [facility]/pharmacy #[id number], burmese labeling, 159, cm, 04/28/2115:46:00 EDT, Height, 78, kg, 01/01/21 16:06:00 EDT... Start Date: 04/28/21 Stop Date: 05/01/21 Status: Ordered Tums 500 mg oral tablet, chewable 500 mg, 1, tablet, Chew, 2 times a day, # 60 tablet, Refills 5, Tot. Refills 5, Maintenance, 12/16/20 14:32:00 EST, Route to Pharmacy Electronically, [facility]/pharmacy #[id number], 159, cm, 12/16/20 13:47:00 EST, Height, [...] Obese class I(Confirmed) Active Onychomycosis(Confirmed) Active *[facility]/CC-Patricia [phone]/Health [facility], Active Care Coordination(Confirmed) Active Nasal septum perforation, h/ o cocaine(Confirmed) Active Muscle spasm(Confirmed) Active Tubular adenoma of colon - d ue 2021(Confirmed) 2 11/2015 Active 1 gross 2-2014, had cystoscopy 2014 Social History Social History Type Response Smoking Status Never smoker entered on: 08/23/16 Sex
--- OUTSIDE RECORDS SUMMARY | 2023-06-10 06:24 | XMS_ITS | Continuity of Care Document ---
Author Name Unknown Organization [facility] Address [address] [place] [address]- Care Team Providers Care Insurance Examining Clerk Name Role Phone Bebe KRISHNA, Hugh Primary Care Physician [phone] Encounter [facility] Date(s): 01/31/21 - 03/02/21 [facility] [address] [place], [place] [address] Allergies, Adverse Reactions, Alerts Substance [...] 10/12/10 Given 1Admin Note: VIS given 05/30/10, Gabonese form 2Admin Note: VIS given, 08/2008, Gabonese form Medications amLODIPine 2.5 mg oral tablet 2.5 mg, 1, tablet, By Mouth, Daily, ; STOP amlodipine 5 mg. use this dose instead., # 30 tablet, Refills 11, Tot. Refills 11, Maintenance, 11/22/20 16:52:00 EST, Route to Pharmacy Electronically, [facility]/pharmacy #[id number], label all scripts in MOH[place],... Start Date: 11/22/20 Stop Date: 11/17/21 Status: Ordered azelastine 0.05% ophthalmic solution 1 drops, Eyes, Both, 2 times a day, PRN for allergy symptoms, # 6 mL, 6 Refills, Maintenance, 01/13/21 14:54:00 EDT, [facility]/pharmacy #[id number], Label in Gabonese, 1 drops Eyes, Both 2 times a day,PRN:for allergy symptoms, 159, cm, 01/04/21 9:23:00 EDT, Height... Start Date: 01/13/21 Status: Ordered diclofenac 1% topical gel 1 application, Topically, 4 times a day, not to exceed 32 grams/day, # 100 Gm, 2 Refills, Maintenance, 12/12/20 11:17:00 EST, Gel, [facility]/pharmacy #[id number], Label in Gabonese please, 159, cm, 12/12/20 10:33:00 EST, Height, 74.1, kg, 10/20/20 16:18:00 EST, Start Date: 12/12/20 Status: Ordered Flonase 50 mcg/inh nasal spray 1 sprays, Nares, Both, Daily, # 16 Gm, 1 Refills, Maintenance, 06/16/20 18:04:00 EDT, [place], [facility]/pharmacy #[id number], 159, cm, 06/08/20 13:31:00 EDT, Height Start Date: 06/16/20 Status: Ordered multivitamin Multiple Vitamins oral capsule 1 capsule, By Mouth, Daily, # 90 capsule, 1 Refills, Maintenance, 02/06/21 14:59:00 EDT, Capsule, [facility]/pharmacy #[id number], 1 capsule By Mouth [...] 4 Refills, Maintenance, 10/05/20 14:48:00EST, EC Capsule, [facility]/pharmacy #[id number], Partial fill [...] 9:00:00 EST, 12/05/20 15:26:00 EST, ER Tablet, [facility]/pharmacy #[id number], 159, cm, 07/27/20 13:20:00 EDT, Height, 74.1, kg, 10/20/20 16:18:00 EST, Dry Weight Start Date: 12/05/20 Stop Date: 12/05/21 Status: Ordered Problem List Condition Effective Dates Status Health Status Inform ant Hematuria(Confirmed) 1 Active Chronic back pain(Confirmed) Active Dyslipidemia(Confirmed) Active h/o allergic rhinitis(Confirmed) Active Illiteracy(Confirmed) Active Dyspepsia(Confirmed) Active Disc displacement(Confirmed) Active [facility]/CC-Serena Purcell-[phone]/Health [facility], Active Care Coordination(Confirmed) Active Tubular adenoma of colon - d ue 2021(Confirmed) 11/2015 Active 1lul -2014, had cystoscopy 2014 Social History Social History Type Response Smoking Status Never smoker entered on: 08/23/16 Sex
--- OUTSIDE RECORDS SUMMARY | 2023-06-10 06:24 | XMS_ITS | Continuity of Care Document ---
Author Name Unknown Organization [facility] Address [address] [place] [address]- Care Team Providers Care Machine Shorthand Reporter Name Role Phone Hugh Spence MD Primary Care Physician Encounter [facility] Date(s): 05/06/20 - 06/05/20 [facility] [address] [place] [address]- [facility] Allergies, Adverse Reactions, Alerts Substance Reaction Severity Status penicillins Active Immunizations Given and Recorded Vaccine Date Status Refusal Reason influenza virus vaccine, inactivated 12/21/19 Give n influenza virus vaccine, inactivated 07/15/19 Give n influenza virus vaccine, inactivated 1 10/12/10 Gi jocy tetanus/diphtheria/pertussis, acel(Tdap) 2 10/12/10 Given 1Admin Note: VIS given 05/30/10, Greenlandic form 2Admin Note: VIS given, 08/2008, Greenlandic form Medications Artificial Tears preserved solution 1 drops, Eyes, Both, 2 times a day, PRN for dry eyes, # 10 mL, 0 Refills, Maintenance, 10/19/19 14:27:00 EST, [facility], 1 drops Eyes, Both 2 times a day,PRN:for dry eyes, 159, cm, 10/19/19 13:35:00 EST, Height Start Date: 10/19/19 Status: Ordered loratadine 10 mg oral tablet 10 mg, 1, tablet, By Mouth, Daily, # 30 tablet, Refills 2, Tot. Refills 2, Maintenance, 12/22/19 21:46:00 EST, Route to Pharmacy Electronically, [facility]/pharmacy #[id number], 159, cm, 12/21/19 13:52:00 EST, Height Start Date: 12/22/19 Stop Date: 03/15/20 Status: Ordered Mylanta Maximum Strength oral suspension 20 mL, By Mouth, 4 times a day, between meals and at bedtime, # 240 mL, 1 Refills, Maintenance, 10/19/19 14:27:00 EST, [place], [facility] 20 mL By Mouth 4 times a day,Instr:between meals and at bedtime, 159, cm, 10/19/19 13:35:00... Start Date: 10/19/19 Status: Ordered omeprazole 40 mg oral enteric coated capsule 1 capsule = 40 mg, By Mouth, Daily, # 30 capsule, 2 Refills, Maintenance, 05/12/20 11:33:00 EDT, ECCapsule, [facility]/pharmacy #[id number], 159, cm, 12/21/19 13:52:00 [...] 01/14/20 11:08:00 EDT, Route to Pharmacy Electronically, [facility] 159, cm, 12/21/19 13:52:00 EST, Height Start Date: 01/14/20 Status: Ordered Problem List Condition Effective Dates Status Health Status Inform ant Hematuria(Confirmed) 1 Active Chronic back pain(Confirmed) Active Depression(Confirmed) Active Dyslipidemia(Confirmed) Active h/o allergic rhinitis(Confirmed) Active Illiteracy(Confirmed) Active Dyspepsia(Confirmed) Active Disc displacement(Confirmed) Active *[facility], (Confirmed) 08/06/18 Active [facility]-Serena Purcell-[phone]/Health [facility], Active Care Coordination(Confirmed) Active Tubular adenoma of colon - d ue 2021(Confirmed) 2 11/2015 Active 1 gross 2-2014, had cystoscopy 2014 Social History Social History Type Response Smoking Status Never smoker entered on: 08/23/16 Sex
--- OUTSIDE RECORDS SUMMARY | 2023-06-10 06:24 | XMS_ITS | Continuity of Care Document ---
Author Name Unknown Organization [facility] Address [address] [place] [address]- Care Team Providers Care Plan Rep Name Role Phone Bebe KRISHNA, Hugh Primary Care Physician [phone] Encounter [facility] Date(s): 12/28/20 - 01/27/21 [facility] [address] [place], [place] [address] Allergies, Adverse [...] 10/12/10 Given 1Admin Note: VIS given 05/30/10, Nauruan form 2Admin Note: VIS given, 08/2008, Nauruan form Medications amLODIPine 2.5 mg oral tablet 2.5 mg, 1, tablet, By Mouth, Daily, ; STOP amlodipine 5 mg. use this dose instead., # 30 tablet, Refills 11, Tot. Refills 11, Maintenance, 11/22/20 16:52:00 EST, Route to Pharmacy Electronically, [facility]/pharmacy #[id number], label all scripts in ROMANIAN,... Start Date: 11/22/20 Stop Date: 11/17/21 Status: Ordered azelastine 0.05% ophthalmic solution 1 drops, Eyes, Both, 2 times a day, PRN for allergy symptoms, # 6 mL, 6 Refills, Maintenance, 01/13/21 14:54:00 EDT, [facility]/pharmacy #[id number], Label in Nauruan, 1 drops Eyes, Both 2 times a day,PRN:for allergy symptoms, 159, cm, 01/04/21 9:23:00 EDT, Height... Start Date: 01/13/21 Status: Ordered diclofenac 1% topical gel 1 application, Topically, 4 times a day, not to exceed 32 grams/day, # 100 Gm, 2 Refills, Maintenance, 12/12/20 11:17:00 EST, Gel, [facility]/pharmacy #[id number], Label in Nauruan please, 159, cm, 12/12/20 10:33:00 EST, Height, 74.1, kg, 10/20/20 16:18:00 EST, DrDonal.Donal Start Date: 12/12/20 Status: Ordered Flonase 50 mcg/inh nasal spray 1 sprays, Nares, Both, Daily, # 16 Gm, 1 Refills, Maintenance, 06/16/20 18:04:00 EDT, [place], [id number], 159, cm, 06/08/20 13:31:00 EDT, Height Start Date: 06/16/20 Status: Ordered multivitamin Multiple Vitamins oral capsule 1 capsule, By Mouth, Daily, # 90 capsule, 11 Refills, Maintenance, 08/12/20 11:32:00 EDT, Capsule, [id number], 1 capsule By [...] 4 Refills, Maintenance, 10/05/20 14:48:00EST, EC Capsule, [id number], Partial fill upon [...] 9:00:00 EST, 12/05/20 15:26:00 EST, ER Tablet, [facility]/pharmacy #[id number], 159, cm, 07/27/20 13:20:00 EDT, Height, 74.1, kg, 10/20/20 16:18:00 EST, Dry Weight Start Date: 12/05/20 Stop Date: 12/05/21 Status: Ordered Problem List Condition Effective Dates Status Health Status Inform ant Hematuria(Confirmed) 1 Active Chronic back pain(Confirmed) Active Dyslipidemia(Confirmed) Active h/o allergic rhinitis(Confirmed) Active Illiteracy(Confirmed) Active Dyspepsia(Confirmed) Active Disc displacement(Confirmed) Active [facility]/CC-Serena Binh-[phone]/Health [facility], Active Care Coordination(Confirmed) Active Tubular adenoma of colon - d ue 2021(Confirmed) 2 11/2015 Active 1lul 2-2014, had cystoscopy 2014 Social History Social History Type Response Smoking Status Never smoker entered on: 08/23/16 Sex
--- OUTSIDE RECORDS SUMMARY | 2023-06-10 06:24 | XMS_ITS | Continuity of Care Document ---
Author Name Unknown Organization [facility] Address [address] [place] [address]- Care Team Providers Care Optical Fabrication Technician Name Role Phone Raiza KRISHNA, Trenton Primary Care Physician Encounter [facility] Date(s): 05/25/22 - 06/24/22 [facility] [address] [place] [id number] Allergies, Adverse Reactions, Alerts Substance Reaction Severity Status penicillins Superficial gravel r enid Itching Active Immunizations Given and Recorded Vaccine Date Status Refusal Reason SARS-CoV-2 mRNA ([id number]) vax 06/13/22 Recorded SARS-CoV-2 (COVID-19) mRNA BNT-162b2 [...] 10/12/10 Given 1Admin Note: VIS given 05/30/10, Haitian form 2Admin Note: VIS given, 08/2008, Haitian form Medications amLODIPine 2.5 mg oral tablet 1 tablet, By Mouth, Daily, USE THIS DOSE INSTEAD., # 90 tablet, 5 Refills, [id number], 157.5, cm, 04/10/22 10:29:00 EDT, Height, 75, kg, 03/25/22 2:00:00 EDT, Dry Weight Start Date: 05/04/22 Status: Ordered azelastine 0.05% ophthalmic solution 1 drops, Eyes, Both, 2 times a day, PRN for allergy symptoms, For eye allergies, # 6 mL, 6 Refills,Maintenance, 02/28/22 16:27:00 EDT, [id number], Label in Haitian, 1 drops Eyes, Both 2 times a day,PRN:for allergy symptoms,Instr:For eye aller... Start Date: 02/28/22 Status: Ordered azelastine 137 mcg/inh (0.1%) nasal spray 0 Refills, Maintenance, 12/07/21 11:16:00 EST, via Dr Glover, supervisor mold yard Start Date: 12/07/21 Status: Ordered baclofen 10 mg oral tablet See Instructions, JUAN RAMON JOAN TABLETA POR VIA ORAL KARLA VECES AL MONICA, # 63 tablet, Refills 0, Instructions Replace Required Details, Route to Pharmacy Electronically, [id number], 157.5, cm, 04/10/22 10:29:00 EDT, Height, 75, [...] 1 Refills, Maintenance, 08/28/21 14:44:00 EST, Solution, [facility]/pharmacy #[id number], Partial fill upon patient request if the prescription is for... Start Date: 08/28/21 Status: Ordered clotrimazole 1% topical cream 1 application, Topically, 2 times a day, for 14 days, # 60 Gm, 1 Refills, Acute 07/11/22 11:08:00 EDT, 06/13/22 11:08:00 EDT, Cream, [facility]/pharmacy #[id number], Partial fill upon patient request if the prescription is for a schedule II opioid drug., 1 applica... Start Date: 06/13/22 Stop Date: 07/11/22 Status: Ordered [facility] LUBRICANT EYE DROPS Maintenance, 12/07/21 11:16:00 EST, via Dr Glover, supervisor mold yard, Supply Start Date: 12/07/21 Status: Ordered cyclobenzaprine 5 mg oral tablet 0 Refills, Maintenance, 09/28/21 13:55:00 EST, Partial fill upon patient request if the prescription is for a schedule II opioid drug. Start Date: 09/28/21 Status: Ordered diclofenac 3% topical gel 1 application, Topically, 2 times a day, # 100 Gm, 0 Refills, Maintenance, 04/28/21 17:22:00 EDT, Gel, [facility]/pharmacy #[id number], Partial fill upon patient [...] 2 Refills, Maintenance, 06/24/22 12:04:00 EDT, Tablet, [facility]/pharmacy #[id number], Partial fill upon patient request if the prescription is for a schedule... Start Date: 06/24/22 Stop Date: 09/22/22 Status: Ordered Flonase 50 mcg/inh nasal spray 1 sprays, Nares, Both, Daily, # 16 Gm, 1 Refills, Maintenance, 11/30/21 10:55:00 EST, [place], [facility]/pharmacy #[id number], 1 sprays Nares, Both Daily, 159, cm, 11/30/21 9:50:00 EST, Height, 78, kg, 01/01/21 16:06:00 EDT, Dry Weight Start Date: 11/30/21 Status: Ordered loratadine 10 mg oral tablet 10 mg, 1, tablet, By Mouth, Daily, # 30 tablet, Refills 5, Tot. Refills 5, Maintenance, 12/18/21 10:54:00 EST, Route to Pharmacy Electronically, [facility]/pharmacy #[id number], Partial fill upon patient request if the prescription is for a schedule II opioid drug... Start Date: 12/18/21 Status: Ordered LUBRICNT EYE JESSICA 0.4-0.3% Maintenance, 12/07/21 11:16:00 EST, via Dr Glover, supervisor mold yard, Supply Start Date: 12/07/21 Status: Ordered minoxidil 2% topical solution 1 mL = 0.02 Gm, Topically, 2 times a day, # 60 mL, 2 Refills, Maintenance, 02/28/22 16:27:00 EDT, Solution, [facility]/pharmacy #[id number], Partial fill upon patient request if the prescription is for a scheduleII opioid drug., 1 mL Topically 2 times a day, 159,... Start Date: 02/28/22 Status: Ordered multivitamin Multiple Vitamins oral capsule 1 capsule, By Mouth, Daily, # 90 capsule, 1 Refills, Maintenance, 03/22/22 15:18:00 EDT, Capsule, [facility]/pharmacy #[id number], 1 capsule By Mouth [...] mL, 0 Refills, Maintenance, 06/11/22 9:43:00 EDT, [facility]/pharmacy #[id number], Partial fill upon patient request if the prescription is for a schedule II opioid drug.,per GI office, 157.5, cm, 04/10/22 10:29:00 EDT, He... Start Date: 06/11/22 Status: Ordered Strang-3 1000 mg oral capsule via psychiatry, 0 Refills, Maintenance, 12/07/21 11:13:00 EST, Partial fill upon patient request ifthe prescription is for a schedule II opioid drug. Start Date: 12/07/21 Status: Ordered omeprazole 40 mg oral enteric coated capsule 1 capsule = 40 mg, By Mouth, 2 times a day, # 60 capsule, 2 Refills, Maintenance, 06/11/22 8:55:00 EDT, EC Capsule, [facility]/pharmacy #[id number], Partial fill upon patient request if the prescription is for a schedule II opioid drug., 157.5, cm, 04/10/22 10:29:... Start Date: 06/11/22 Stop Date: 09/09/22 Status: Ordered Lynette-Colace 50 mg-8.6 mg oral tablet 2 tablet, By Mouth, Daily at bedtime, PRN Constipation, For constipation, # 60 tablet, 0 Refills, Maintenance, 01/02/22 20:52:00 EDT, Tablet, [facility]/pharmacy #[id number], Partial fill upon patient [...] mL, 4 Refills, Maintenance, 02/28/22 16:09:00 EDT, [place], [facility]/pharmacy #[id number], Partial fill upon patient request if the prescription is for a schedule II opioid drug., 1 sprays N... Start Date: 02/28/22 Status: Ordered tamsulosin 0.4 mg oral capsule 0.4 mg, 1, capsule, By Mouth, Daily, at night (print label in belarusian), # 30 capsule, Refills 1, Tot. Refills 1, Maintenance, 09/28/21 14:03:00 EST, Route to Pharmacy Electronically, [facility], Partial fill upon patient request if the... Start Date: 09/28/21 Status: Ordered Tears Naturale Forte preserved ophthalmic solution 1 drops, Eyes, Both, 2 times a day, PRN for dry eyes, # 30 mL, 0 Refills, Maintenance, 08/28/21 14:52:00 EST, Solution, [facility]/pharmacy #[id number], Partial fill upon patient request if the prescription is for a schedule II opioid drug., 1 drops Eyes, Both 2 t... Start Date: 08/28/21 Status: Ordered tiZANidine 2 mg oral capsule 1 capsule = 2 mg, By Mouth, 3 times a day, PRN as needed for muscle spasm, # 9 capsule, 0 Refills, Maintenance, 04/28/21 17:18:00 EDT, Capsule, [facility]/pharmacy #[id number], belarusian labeling, 159, cm, 04/28/2115:46:00 EDT, Height, 78, kg, 01/01/21 16:06:00 EDT... Start Date: 04/28/21 Stop Date: 05/01/21 Status: Ordered Tums 500 mg oral tablet, chewable 500 mg, 1, tablet, Chew, 2 times a day, # 60 tablet, Refills 5, Tot. Refills 5, Maintenance, 12/16/20 14:32:00 EST, Route to Pharmacy Electronically, [facility]/pharmacy #[id number], 159, cm, 12/16/20 13:47:00 [...] Dyspepsia(Confirmed) Active Disc displacement(Confirmed) Active Onychomycosis(Confirmed) Active *[facility]Valerie [phone]/Health [facility], Active Care Coordination(Confirmed) Active Nasal septum perforation, h/ o cocaine(Confirmed) Active Muscle spasm(Confirmed) Active Tubular adenoma of colon - d ue 2021(Confirmed) 2 11/2015 Active 1, gross 2-2014, had cystoscopy 2014 Social History Social History Type Response Smoking Status Never smoker entered on: 08/23/16 Sex Care Team Personnel Name: Trenton Eastman MD Address: [address] [place] [address]
--- OUTSIDE RECORDS SUMMARY | 2023-06-10 06:24 | XMS_ITS | Continuity of Care Document ---
Author Name Unknown Organization [facility] Address [address] [place] [address]- Care Team Providers Care Jig Maker Name Role Phone Raiza KRISHNA, [place] Primary Care Physician [facility]counter [facility] Date(s): 03/16/22 - 04/15/22 [facility] [address] [place] [id number] Allergies, Adverse Reactions, [...] Maintenance, 11/17/21 16:52:00 EST, Route to Pharmacy Electronically,[facility]/pharmacy #[id number], label all scripts in INDONESIAN, 1... Start Date: 11/17/21 Stop Date: 05/16/22 Status: Ordered azelastine 0.05% ophthalmic solution 1 drops, Eyes, Both, 2 times a day, PRN for allergy symptoms, For eye allergies, # 6 mL, 6 Refills,Maintenance, 02/28/22 16:27:00 EDT, [facility]/pharmacy #[id number], Label in Cook Islander, 1 drops Eyes, Both 2 times a day,PRN:for allergy symptoms,Instr:For eye aller... Start Date: 02/28/22 Status: Ordered azelastine 137 mcg/inh (0.1%) nasal spray 0 Refills, Maintenance, 12/07/21 11:16:00 EST, via Dr Glover, air export operations agent Start Date: 12/07/21 Status: Ordered baclofen 10 mg oral tablet 10 mg, 1, tablet, By Mouth, 3 times a day, # 63 tablet, Refills 0, Tot. Refills 0, Maintenance, 03/27/22 10:09:00 EDT, Route to Pharmacy Electronically, [facility]/pharmacy #[id number], Partial fill upon patient request [...] Dry Weight Start Date: 03/27/22 Status: Ordered [facility] LUBRICANT EYE DROPS Maintenance, 12/07/21 11:16:00 EST, via Dr Glover, air export operations agent, Supply Start Date: 12/07/21 Status: Ordered cyclobenzaprine 5 mg oral tablet 0 Refills, Maintenance, 09/28/21 13:55:00 EST, Partial fill upon patient request if the prescription is for a schedule II opioid drug. Start Date: 09/28/21 Status: Ordered diclofenac 3% topical gel 1 application, Topically, 2 times a day, # 100 Gm, 0 Refills, Maintenance, 04/28/21 17:22:00 EDT, Gel, [facility]/pharmacy #[id number], Partial fill upon patient request if the prescription is for a schedule II opioid drug., 1 application Topically 2 times a day,... Start Date: 04/28/21 Status: Ordered Flonase 50 mcg/inh nasal spray 1 sprays, Nares, Both, Daily, # 16 Gm, 1 Refills, Maintenance, 11/30/21 10:55:00 EST, [place], [facility]/pharmacy #[id number], 1 sprays Nares, Both Daily, [...] 12/18/21 10:54:00 EST, Route to Pharmacy Electronically, [facility]/pharmacy #[id number], Partial fill upon patient request if the prescription is for a schedule II opioid drug... Start Date: 12/18/21 Status: Ordered LUBRICNT EYE JESSICA 0.4-0.3% Maintenance, 12/07/21 11:16:00 EST, via Dr Glover, air export operations agent, Supply Start Date: 12/07/21 Status: Ordered minoxidil 2% topical solution 1 mL = 0.02 Gm, Topically, 2 times a day, # 60 mL, 2 Refills, Maintenance, 02/28/22 16:27:00 EDT, Solution, [facility]/pharmacy #[id number], Partial fill upon patient request [...] Maintenance, 09/21/21 9:33:00 EST, REC Powder, [facility], Partial fill upon patient request if the prescription is for a schedule II opioid drug., 240 mL By Mouth Every 10 minut... Start Date: 09/21/21 Status: Ordered [place]-3 1000 mg oral capsule via psychiatry, 0 [...] 0 Refills, Maintenance, 01/02/22 20:52:00 EDT, Tablet, [facility]/pharmacy #[id number], Partial fill upon patient request [...] mL, 4 Refills, Maintenance, 02/28/22 16:09:00 EDT, [place], [facility]/pharmacy #[id number], Partial fill upon patient request if the prescription is for a schedule II opioid drug., 1 sprays N... Start Date: 02/28/22 Status: Ordered tamsulosin 0.4 mg oral capsule 0.4 mg, 1, capsule, By Mouth, Daily, at night (print label in lebanese), # 30 capsule, Refills 1, Tot. Refills 1, Maintenance, 09/28/21 14:03:00 EST, Route to Pharmacy Electronically, [facility], Partial fill upon patient request if the... Start Date: 09/28/21 Status: Ordered Tears Naturale Forte preserved ophthalmic solution 1 drops, Eyes, Both, 2 times a day, PRN for dry eyes, # 30 mL, 0 Refills, Maintenance, 08/28/21 14:52:00 EST, Solution, [facility]/pharmacy #[id number], Partial fill upon patient request if the prescription is for a schedule II opioid drug., 1 drops Eyes, Both 2 t... Start Date: 08/28/21 Status: Ordered tiZANidine 2 mg oral capsule 1 capsule = 2 mg, By Mouth, 3 times a day, PRN as needed for muscle spasm, # 9 capsule, 0 Refills, Maintenance, 04/28/21 17:18:00 EDT, Capsule, [id number], lebanese labeling, 159, cm, 04/28/2115:46:00 EDT, Height, 78, kg, 01/01/21 16:06:00 EDT... Start Date: 04/28/21 Stop Date: 05/01/21 Status: Ordered Tums 500 mg oral tablet, chewable 500 mg, 1, tablet, Chew, 2 times a day, # 60 tablet, Refills 5, Tot. Refills 5, Maintenance, 12/16/20 14:32:00 EST, Route to Pharmacy Electronically, [facility]/pharmacy #[id number], 159, cm, 12/16/20 13:47:00 EST, [...] class I(Confirmed) Active Onychomycosis(Confirmed) Active *[facility]/CC-Patricia [phone]/Health Custodial, Active Care Coordination(Confirmed) Active Nasal septum perforation, h/ o cocaine(Confirmed) Active Muscle spasm(Confirmed) Active Tubular adenoma of colon - d ue 2021(Confirmed) 2 11/2015 Active 1, gross 2-2014, had cystoscopy 2014 Social History Social History Type Response Smoking Status Never smoker entered on: 08/23/16 Sex
--- OUTSIDE RECORDS SUMMARY | 2023-06-10 06:24 | XMS_ITS | Continuity of Care Document ---
Author Name Unknown Organization [facility] Address [address] [place] [address]- Care Team Providers Care Dietetic Technician Name Role Phone Trenton Eastman MD Primary Care Physician [phone] Encounter [facility] Date(s): 07/20/21 - 08/19/21 [facility] [address] [place], [place] [address] Allergies, Adverse Reactions, Alerts [...] VIS given, 08/2008, Afghan form Medications amLODIPine 2.5 mg oral tablet 2.5 mg, 1, tablet, By Mouth, Daily, ; STOP amlodipine 5 mg. use this dose instead., # 30 tablet, Refills 11, Tot. Refills 11, Maintenance, 11/22/20 16:52:00 EST, Route to Pharmacy Electronically, [facility]/pharmacy #[id number], label all scripts in CONGOLESE,... Start Date: 11/22/20 Stop Date: 11/17/21 Status: Ordered azelastine 0.05% ophthalmic solution 1 drops, Eyes, Both, 2 times a day, PRN for allergy symptoms, # 6 mL, 6 Refills, Maintenance, 01/13/21 14:54:00 EDT, [facility]/pharmacy #[id number], Label in Afghan, 1 drops Eyes, Both 2 times a day,PRN:for allergy symptoms, 159, cm, 01/04/21 9:23:00 EDT, Height... Start Date: 01/13/21 Status: Ordered diclofenac 3% topical gel 1 application, Topically, 2 times a day, # 100 Gm, 0 Refills, Maintenance, 04/28/21 17:22:00 EDT, Gel, [facility]/pharmacy #[id number], Partial fill upon patient request if the prescription is for a schedule II opioid drug., 1 application Topically 2 times a day,... Start Date: 04/28/21 Status: Ordered Flonase 50 mcg/inh nasal spray 1 sprays, Nares, Both, Daily, # 16 Gm, 1 Refills, Maintenance, 06/16/20 18:04:00 EDT, [place], [facility]/pharmacy #[id number], 159, cm, 06/08/20 13:31:00 EDT, Height Start Date: 06/16/20 Status: Ordered multivitamin Multiple Vitamins oral capsule 1 capsule, By Mouth, Daily, # 90 capsule, 1 Refills, Maintenance, 02/06/21 14:59:00 EDT, Capsule, [facility]/pharmacy #[id number], 1 capsule By Mouth Daily, 159, cm, 01/04/21 9:23:00 EDT, Height, 78, kg, 01/02/2116:06:00 EDT, Dry Weight Start Date: 02/06/21 Status: Ordered omeprazole 40 mg oral enteric coated capsule 1 capsule = 40 mg, By Mouth, 2 times a day, # 60 capsule, 2 Refills, Maintenance, 04/13/21 10:31:00EDT, EC Capsule, [facility]/pharmacy #[id number], Partial fill upon patient request [...] 0 Refills, Maintenance, 04/28/21 17:18:00 EDT, Capsule, [facility]/pharmacy #[id number], canadian labeling, 159, cm, 04/28/2115:46:00 EDT, Height, 78, kg, 01/01/21 16:06:00 EDT... Start Date: 04/28/21 Stop Date: 05/01/21 Status: Ordered Tums 500 mg oral tablet, chewable 500 mg, 1, tablet, Chew, 2 times a day, # 60 tablet, Refills 5, Tot. Refills 5, Maintenance, 12/16/20 14:32:00 EST, Route to Pharmacy Electronically, [facility]/pharmacy #[id number], 159, cm, 12/16/20 13:47:00 EST, Height, 74.1, kg, 10/20/20 16:18:00 EST, Dry Weight Start Date: 12/16/20 Status: Ordered Problem List Condition Effective Dates Status Health Status Inform ant Hematuria(Confirmed) 1 Active Chronic back pain(Confirmed) Active Dyslipidemia(Confirmed) Active h/o allergic rhinitis(Confirmed) Active Illiteracy(Confirmed) Active Dyspepsia(Confirmed) Active Disc displacement(Confirmed) Active Onychomycosis(Confirmed) Active [facility]/CC-Serena Purcell-[phone]/Health Jail, Active Care Coordination(Confirmed) Active Muscle spasm(Confirmed) Active Tubular adenoma of colon - d ue 2021(Confirmed) 2 11/2015 Active 1, gross 2-2014, had cystoscopy 2014 Social History Social History Type Response Smoking Status Never smoker entered on: 08/23/16 Sex
--- OUTSIDE RECORDS SUMMARY | 2023-06-10 06:24 | XMS_ITS | Continuity of Care Document ---
Author Name Unknown Organization [facility] Address [address] [place] [address]- Care Team Providers Care Stove Mechanic Name Role Phone Trenton Eastman MD Primary Care Physician Encounter [facility] Date(s): 07/23/22 - 08/22/22 [facility] [address] [place] [id number] Allergies, Adverse Reactions, Alerts Substance Reaction Severity Status penicillins Superficial gravel r enid Itching Active Immunizations Given and Recorded Vaccine Date Status Refusal Reason SARS-CoV-2 mRNA (eakwkol-[id number]) vax 06/13/22 Recorded SARS-CoV-2 (COVID-19) mRNA BNT-162b2 [...] 10/12/10 Given 1Admin Note: VIS given 05/30/10, Luxembourgish form 2Admin Note: VIS given, 08/2008, Luxembourgish form Medications amLODIPine 2.5 mg oral tablet 1 tablet, By Mouth, Daily, USE THIS DOSE INSTEAD., # 90 tablet, 5 Refills, [id number], 157.5, cm, 04/10/22 10:29:00 EDT, Height, 75, kg, 03/25/22 2:00:00 EDT, Dry Weight Start Date: 05/04/22 Status: Ordered azelastine 0.05% ophthalmic solution 1 drops, Eyes, Both, 2 times a day, PRN for allergy symptoms, For eye allergies, # 6 mL, 6 Refills,Maintenance, 02/28/22 16:27:00 EDT, [id number], Label in Luxembourgish, 1 drops Eyes, Both 2 times a day,PRN:for allergy symptoms,Instr:For eye aller... Start Date: 02/28/22 Status: Ordered azelastine 137 mcg/inh (0.1%) nasal spray 0 Refills, Maintenance, 12/07/21 11:16:00 EST, via Dr Glover, returns supervisor Start Date: 12/07/21 Status: Ordered baclofen 10 mg oral tablet See Instructions, JUAN RAMON JOAN TABLETA POR VIA ORAL KARLA BERRY AL MONICA, # 63 tablet, Refills 0, Instructions Replace Required Details, Route to Pharmacy Electronically, [id number], 157.5, cm, 04/10/22 10:29:00 EDT, Height, 75, [...] 1 Refills, Maintenance, 08/28/21 14:44:00 EST, Solution, [facility]/pharmacy #[id number], Partial fill upon patient request if the prescription is for... Start Date: 08/28/21 Status: Ordered ciclopirox topical 0.77% suspension 1 application, Topically, 2 times a day, Print instructions in surinamese, # 60 mL, 1 Refills, Maintenance, 07/11/22 11:00:00 EDT, [place], [facility]/pharmacy #[id number], Partial fill upon patient request if the prescription is for a schedule II opioid drug., 1... Start Date: 07/11/22 Status: Ordered clotrimazole 1% topical cream 1 application, Topically, 2 times a day, Print instructions in surinamese Apply to groin area, face, and also in between digits on both feet, # 100 Gm, 0 Refills, Maintenance, 07/11/22 11:00:00 EDT, Cream, [facility]/pharmacy #[id number], Partial fill upon patient r... Start Date: 07/11/22 Status: Ordered [facility] LUBRICANT EYE DROPS Maintenance, 12/07/21 11:16:00 EST, via Dr Glover, returns supervisor, Supply Start Date: 12/07/21 Status: Ordered cyclobenzaprine 5 mg oral tablet 0 Refills, Maintenance, 09/28/21 13:55:00 EST, Partial fill upon patient request if the prescription is for a schedule II opioid drug. Start Date: 09/28/21 Status: Ordered diclofenac 3% topical gel 1 application, Topically, 2 times a day, # 100 Gm, 0 Refills, Maintenance, 04/28/21 17:22:00 EDT, Gel, [facility]/pharmacy #[id number], Partial fill [...] Gm, 1 Refills, Maintenance, 11/30/21 10:55:00 EST, [place], [facility]/pharmacy #[id number], 1 sprays Nares, Both Daily, 159, cm, 11/30/21 9:50:00 EST, Height, 78, kg, 01/01/21 16:06:00 EDT, Dry Weight Start Date: 11/30/21 Status: Ordered loratadine 10 mg oral tablet 10 mg, 1, tablet, By Mouth, Daily, # 30 tablet, Refills 5, Tot. Refills 5, Maintenance, 12/18/21 10:54:00 EST, [id number] Partial fill upon patient request if the prescription is for a schedule II opioid drug... Start Date: 12/18/21 Status: Ordered LUBRICNT EYE JESSICA 0.4-0.3% Maintenance, 12/07/21 11:16:00 EST, via Dr Glover, returns supervisor, Supply Start Date: 12/07/21 Status: Ordered minoxidil 2% topical solution 1 mL = 0.02 Gm, Topically, 2 times a day, # 60 mL, 2 Refills, Maintenance, 02/28/22 16:27:00 EDT, Solution, [id number] Partial fill upon patient request if the prescription is for a scheduleII opioid drug., 1 mL Topically 2 times a day, 159,... Start Date: 02/28/22 Status: Ordered multivitamin Multiple Vitamins oral capsule 1 capsule, By Mouth, Daily, # 90 capsule, 1 Refills, Maintenance, 03/22/22 15:18:00 EDT, Capsule, [facility]/pharmacy #[id number], 1 capsule By Mouth Daily, 159, cm, 03/22/22 10:39:00 EDT, Height, 78, kg, 01/01/21 16:06:00 EDT, Dry Weight Start Date: 03/22/22 Status: Ordered NuLYTELY with Flavor Packs oral powder for reconstitution 240 mL, By Mouth, Every 10 minutes, # 1 each, 0 Refills, Maintenance, 09/21/21 9:33:00 EST, REC Powder[facility] Partial fill upon patient request if [...] EDT, He... Start Date: 06/11/22 Status: Ordered [place]-3 1000 mg oral capsule via psychiatry, 0 Refills, Maintenance, 12/07/21 11:13:00 EST, Partial fill upon patient request ifthe prescription is for a schedule II opioid drug. Start Date: 12/07/21 Status: Ordered omeprazole 40 mg oral enteric coated capsule 1 capsule = 40 mg, By Mouth, 2 times a day, # 60 capsule, 2 Refills, Maintenance, 06/11/22 8:55:00 EDT, EC Capsule, [facility]/pharmacy #[id number], Partial fill upon [...] mL, 4 Refills, Maintenance, 02/28/22 16:09:00 EDT, [place], [id number], Partial fill upon patient request if the prescription is for a schedule II opioid drug., 1 sprays N... Start Date: 02/28/22 Status: Ordered tamsulosin 0.4 mg oral capsule 0.4 mg, 1, capsule, By Mouth, Daily, at night (print label in surinamese), # 30 capsule, Refills 1, Tot. Refills 1, Maintenance, 09/28/21 14:03:00 EST, Route to Pharmacy Electronically, [facility], Partial fill upon patient request if the... Start Date: 09/28/21 Status: Ordered Tears Naturale Forte preserved ophthalmic solution 1 drops, Eyes, Both, 2 times a day, PRN for dry eyes, # 30 mL, 0 Refills, Maintenance, 08/28/21 14:52:00 EST, Solution, [facility]/pharmacy #[id number], Partial [...] 0 Refills, Maintenance, 04/28/21 17:18:00 EDT, Capsule, [facility]/pharmacy #[id number], surinamese labeling, 159, cm, 04/28/2115:46:00 EDT, Height, 78, kg, 01/01/21 16:06:00 EDT... Start Date: 04/28/21 Stop Date: 05/01/21 Status: Ordered Tums 500 mg oral tablet, chewable 500 mg, 1, tablet, Chew, 2 times a day, # 60 tablet, Refills 5, Tot. Refills 5, Maintenance, 12/16/20 14:32:00 EST, Route to Pharmacy Electronically, [facility]/pharmacy #[id number], 159, cm, 12/16/20 13:47:00 [...] Confirmed Active Onychomycosis Confirmed Active *[facility]/CC-Mary gayle [phone]/H [facility], Active Care Coordination Confirmed Active Nasal septum perforation, h/o cocaine Confirmed Active Muscle spasm Confirmed Active Tubular adenoma of colon - due 2021 2 Confirmed 11/2015 Active 1, gross 2-2014, had cystoscopy 2014 removed 2015 Social History Social History Type Response Smoking Status Never smoker entered on: 08/23/16 Sex Patient Care team information Personnel Name: Trenton Eastman MD Address: Address: [address] [place] [address] [place], [place] [address]
--- OUTSIDE RECORDS SUMMARY | 2023-06-10 06:24 | XMS_ITS | Continuity of Care Document ---
Author Name Unknown Organization [facility] Address [address] [place] [address]- Care Team Providers Care Cardiovascular Tech Name Role Phone Raiza KRISHNA, [place] Primary Care Physician [facility] Date(s): 04/06/22 - 05/06/22 [facility] [address] [place] [id number] Allergies, Adverse Reactions, Alerts [...] 10/12/10 Given 1Admin Note: VIS given 05/30/10, French form 2Admin Note: VIS given, 08/2008, French form Medications amLODIPine 2.5 mg oral tablet 1 tablet, By Mouth, Daily, USE THIS DOSE INSTEAD., # 90 tablet, 5 Refills, [id number], 157.5, cm, 04/10/22 10:29:00 EDT, Height, 75, kg, 03/25/22 2:00:00 EDT, Dry Weight Start Date: 05/04/22 Status: Ordered azelastine 0.05% ophthalmic solution 1 drops, Eyes, Both, 2 times a day, PRN for allergy symptoms, For eye allergies, # 6 mL, 6 Refills,Maintenance, 02/28/22 16:27:00 EDT, [facility]/pharmacy #[id number], Label in French, 1 drops Eyes, Both 2 times a day,PRN:for allergy symptoms,Instr:For eye aller... Start Date: 02/28/22 Status: Ordered azelastine 137 mcg/inh (0.1%) nasal spray 0 Refills, Maintenance, 12/07/21 11:16:00 EST, via Dr Glover, licensed vocational nurse Start Date: 12/07/21 Status: Ordered baclofen 10 mg oral tablet See Instructions, JUAN RAMON FRANCO TABLETA POR VIA ORAL KARLA VECES AL MONICA, # 63 tablet, Refills 0, Instructions Replace Required Details, Route to Pharmacy Electronically, [id number], 157.5, cm, 04/10/22 10:29:00 EDT, Height, 75, [...] Maintenance, 12/07/21 11:16:00 EST, via Dr Glover, licensed vocational nurse, Supply Start Date: 12/07/21 Status: Ordered cyclobenzaprine 5 mg oral tablet 0 Refills, Maintenance, 09/28/21 13:55:00 EST, Partial fill upon patient request if the prescription is for a schedule II opioid drug. Start Date: 09/28/21 Status: Ordered diclofenac 3% topical gel 1 application, Topically, 2 times a day, # 100 Gm, 0 Refills, Maintenance, 04/28/21 17:22:00 EDT, Gel, [facility]/pharmacy #[id number], Partial fill upon patient request if the prescription is for a schedule II opioid drug., 1 application Topically 2 times a day,... Start Date: 04/28/21 Status: Ordered Flonase 50 mcg/inh nasal spray 1 sprays, Nares, Both, Daily, # 16 Gm, 1 Refills, Maintenance, 11/30/21 10:55:00 EST, [place], [facility]/pharmacy #[id number], 1 sprays Nares, Both [...] 12/18/21 10:54:00 EST, Route to Pharmacy Electronically, [facility]/pharmacy #[id number], Partial fill upon patient request if the prescription is for a schedule II opioid drug... Start Date: 12/18/21 Status: Ordered LUBRICNT EYE JESSICA 0.4-0.3% Maintenance, 12/07/21 11:16:00 EST, via Dr Glover, licensed vocational nurse, Supply Start Date: 12/07/21 Status: Ordered minoxidil [...] 1 Refills, Maintenance, 03/22/22 15:18:00 EDT, Capsule, [facility]/pharmacy #[id number], 1 capsule By Mouth Daily, 159, cm, 03/22/22 10:39:00 EDT, Height, 78, kg, 01/01/21 16:06:00 EDT, Dry Weight Start Date: 03/22/22 Status: Ordered NuLYTELY with Flavor Packs oral powder for reconstitution 240 mL, By Mouth, Every 10 minutes, # 1 each, 0 Refills, Maintenance, 09/21/21 9:33:00 EST, REC Powder, [facility], Partial fill upon patient request if the prescription is for a schedule II opioid drug., 240 mL By Mouth Every 10 minut... Start Date: 09/21/21 Status: Ordered [place]-3 1000 mg oral capsule via psychiatry, 0 [...] 0 Refills, Maintenance, 01/02/22 20:52:00 EDT, Tablet, [facility]/pharmacy #[id number], Partial fill upon patient [...] mL, 4 Refills, Maintenance, 02/28/22 16:09:00 EDT, [place], [facility]/pharmacy #[id number], Partial fill upon patient request if the prescription is for a schedule II opioid drug., 1 sprays N... Start Date: 02/28/22 Status: Ordered tamsulosin 0.4 mg oral capsule 0.4 mg, 1, capsule, By Mouth, Daily, at night (print label in anguillan), # 30 capsule, Refills 1, Tot. Refills 1, Maintenance, 09/28/21 14:03:00 EST, Route to Pharmacy Electronically, [facility], Partial fill upon patient request if the... Start Date: 09/28/21 Status: Ordered Tears Naturale Forte preserved ophthalmic solution 1 drops, Eyes, Both, 2 times a day, PRN for dry eyes, # 30 mL, 0 Refills, Maintenance, 08/28/21 14:52:00 EST, Solution, [facility]/pharmacy #[id number], Partial fill upon patient request if the prescription is for a schedule II opioid drug., 1 drops Eyes, Both 2 t... Start Date: 08/28/21 Status: Ordered tiZANidine 2 mg oral capsule 1 capsule = 2 mg, By Mouth, 3 times a day, PRN as needed for muscle spasm, # 9 capsule, 0 Refills, Maintenance, 04/28/21 17:18:00 EDT, Capsule, [facility]/pharmacy #[id number], anguillan labeling, 159, cm, 04/28/2115:46:00 EDT, Height, 78, kg, 01/01/21 16:06:00 EDT... Start Date: 04/28/21 Stop Date: 05/01/21 Status: Ordered Tums 500 mg oral tablet, chewable 500 mg, 1, tablet, Chew, 2 times a day, # 60 tablet, Refills 5, Tot. Refills 5, Maintenance, 12/16/20 14:32:00 EST, Route to Pharmacy Electronically, [facility]/pharmacy #[id number], 159, cm, 12/16/20 13:47:00 [...] Active Obese class I(Confirmed) Active Onychomycosis(Confirmed) Active *[facility]/-Patricia [phone]/Health Correction, Active Care Coordination(Confirmed) Active Nasal septum perforation, h/ o cocaine(Confirmed) Active Muscle spasm(Confirmed) Active Tubular adenoma of colon - d ue 2021(Confirmed) 2 11/2015 Active 1 gross 2-2014, had cystoscopy 2014 Social History Social History Type Response Smoking Status Never smoker entered on: 08/23/16 Sex
--- OUTSIDE RECORDS SUMMARY | 2023-06-10 06:24 | XMS_ITS | Continuity of Care Document ---
Author Name Unknown Organization [facility] Address [address] [place] [address]- Care Team Providers Care Lei Maker Name Role Phone Trenton Eastman MD Primary Care Physician Encounter [facility] Date(s): 01/11/23 - 02/10/23 [facility] [address] [place] [id number] Allergies, Adverse Reactions, [...] inactivated 1 10/12/10 Gi jocy SARS-CoV-2 mRNA ([id number]) vax 06/13/22 Recorded SARS-CoV-2 (COVID-19) mRNA BNT-162b2 [...] 11/01/22 9:44:00 EST, [id number] Partial fill upon patient request ifthe prescription is for a schedule II opioid drug.,... Start Date: 11/01/22 Status: Ordered Artificial Tears preserved solution 1 drops, Eyes, Both, 2 times a day, PRN for dry eyes, # 30 mL, 2 Refills, Maintenance, 02/04/23 9:35:00 EDT, Solution, [id number], Partial fill upon patient request if the prescription is fora schedule II opioid drug., 1 drops Eyes, Both 2 ti... Start Date: 02/04/23 Status: Ordered Ativan 0.5 mg oral tablet 1 tablet = 0.5 mg, By Mouth, Once, pitcairn islander label, take 30 mins to 1 hr before flight, # 2 tablet, 0Refills, Soft Stop, 10/08/22 17:54:00 EST, Tablet, [id number], Partial fill upon patient request if the prescription is for a schedule II opioi... Start Date: 10/08/22 Status: Ordered atorvastatin 40 mg oral tablet 1 tablet = 40 mg, By Mouth, Daily, # 30 tablet, 5 Refills, Maintenance, 12/19/22 14:49:00 EST, Tablet, [facility], Partial fill upon patient request if the prescription is for a schedule II opioid drug., 162.56, cm, 12/19/22 14:01:00 E... Start Date: 12/19/22 Status: Ordered azelastine 137 mcg/inh (0.1%) nasal spray 0 Refills, Maintenance, 12/07/21 11:16:00 EST, via Dr Glover, interactive multimedia designer Start Date: 12/07/21 Status: Ordered baclofen 10 mg oral tablet See Instructions, TOME JOAN TABLETA POR VIA ORAL KARLA VECES AL MONICA, # 63 tablet, Refills 0, Instructions Replace Required Details, Route to Pharmacy Electronically, [id number], 157.5, cm, 04/10/22 10:29:00 EDT, Height, 75, [...] 2 times a day, Print instructions in pitcairn islander use only for toenails, # 60 mL, 1 Refills, Maintenance, 01/18/23 10:15:00 EDT, Suspension, [facility]/pharmacy #[id number], Partial fill uponpatient request if the prescription is for a sched... Start Date: 01/18/23 Status: Ordered [facility] LUBRICANT EYE DROPS Maintenance, 12/07/21 11:16:00 EST, via Dr Glover, interactive multimedia designer, Supply Start Date: 12/07/21 Status: Ordered diclofenac 1% topical gel 1 application, Topically, 4 times a day, # 100 Gm, 5 Refills, Maintenance, 12/07/22 11:37:00 EST, Gel, [facility]/pharmacy #[id number], Partial fill [...] 2 Refills, Maintenance, 06/24/22 12:04:00 EDT, Tablet, [facility]/pharmacy #[id number], Partial fill upon patient request if the prescription is for a schedule... Start Date: 06/24/22 Stop Date: 09/22/22 Status: Ordered Flomax 0.4 mg oral capsule 0.4 mg, 1, capsule, By Mouth, Daily, # 30 capsule, Refills 5, Tot. Refills 5, Maintenance, 11/07/2310:08:00 EST, Route to Pharmacy Electronically, [facility]/pharmacy #[id number], Partial fill upon patient request if the prescription is for a schedule II opioid d... Start Date: 11/07/22 Status: Ordered ketoconazole 2% topical cream 1 application, Topically, Daily, Print instructions in pitcairn islander Use only on feet, # 60 Gm, 1 Refills, Maintenance, 01/18/23 10:16:00 EDT, Cream, [facility]/pharmacy #[id number], Partial fill [...] Maintenance, 12/07/21 11:16:00 EST, via Dr Glover, interactive multimedia designer, Supply Start Date: 12/07/21 Status: Ordered minoxidil 2% topical solution 1 mL = 0.02 Gm, Topically, 2 times a day, # 60 mL, 2 Refills, Maintenance, 02/28/22 16:27:00 EDT, Solution, [facility]/pharmacy #[id number], Partial [...] EDT, He... Start Date: 06/11/22 Status: Ordered Mesquite-3 1000 mg oral capsule via psychiatry, 0 Refills, Maintenance, 12/07/21 11:13:00 EST, Partial fill upon patient request ifthe prescription is for a schedule II opioid drug. Start Date: 12/07/21 Status: Ordered omeprazole 40 mg oral enteric coated capsule See Instructions, JUAN RAMON FRANCO CAPSULA DOS VECES AL MONICA, # 180 capsule, 1 Refills, Maintenance, 09/05/22 10:55:00 EST, [id number], 162.56, cm, 07/12/22 10:42:00 EDT, Height, 76.5, [...] 15:27:00 EDT, Tablet, [id number], label in Mexican, 162.56,cm, 01/14/23 15:01:00 [...] mL, 4 Refills, Maintenance, 02/28/22 16:09:00 EDT, [place], [id number], Partial fill upon patient request [...] Disc displacement Confirmed Active Onychomycosis Confirmed Active [facility]CCValerie [phone]/[facility], Active Care Coordination Confirmed Active Nasal septum [...] Team Personnel Name: Raiza KRISHNA, Trenton Position: [facility] Resident Member Role: PCP Address: Address: [address] [place] [address] [place] [address]- Care Team Related Persons Name: AJAY BE Address: [place] [address] Name: KAMALJIT FUCHS Address: home [address] [place] [address] [place] [id number]
--- OUTSIDE RECORDS SUMMARY | 2023-06-10 06:24 | XMS_ITS | Continuity of Care Document ---
Author Name Unknown Organization [facility] Address [address] [place] [address]- Care Team Providers Care Booster Pump Oiler Name Role Phone Bebe KRISHNA, Hugh Primary Care Physician Encounter [facility] Date(s): 03/16/21 - 04/15/21 [facility] [address], [place] [address] Allergies, Adverse Reactions, Alerts [...] 10/12/10 Given 1Admin Note: VIS given 05/30/10, [place]omean form 2Admin Note: VIS given, 08/2008, [place] form Medications amLODIPine 2.5 mg oral tablet 2.5 mg, 1, tablet, By Mouth, Daily, ; STOP amlodipine 5 mg. use this dose instead., # 30 tablet, Refills 11, Tot. Refills 11, Maintenance, 11/22/20 16:52:00 EST, Route to Pharmacy Electronically, [facility]/pharmacy #[id number], label all scripts in CHILEAN,... Start Date: 11/22/20 Stop Date: 11/17/21 Status: Ordered azelastine 0.05% ophthalmic solution 1 drops, Eyes, Both, 2 times a day, PRN for allergy symptoms, # 6 mL, 6 Refills, Maintenance, 01/13/21 14:54:00 EDT, [id number], Label in [place]ome[place], 1 drops Eyes, Both 2 times a day,PRN:for allergy symptoms, 159, cm, 01/04/21 9:23:00 EDT, Height... Start Date: 01/13/21 Status: Ordered diclofenac 1% topical gel 1 application, Topically, 4 times a day, not to exceed 32 grams/day, # 100 Gm, 2 Refills, Maintenance, 12/12/20 11:17:00 EST, Gel, [facility]/pharmacy #[id number], Label in Sao Tomean please, 159, cm, 12/12/20 10:33:00 EST, Height, 74.1, kg, 10/20/20 16:18:00 EST, Start Date: 12/12/20 Status: Ordered Flonase 50 mcg/inh nasal spray 1 sprays, Nares, Both, Daily, # 16 Gm, 1 Refills, Maintenance, 06/16/20 18:04:00 EDT, [place], [id number], 159, cm, 06/08/20 13:31:00 EDT, [...] 12/16/20 14:32:00 EST, Route to Pharmacy Electronically, [facility]/pharmacy #[id number], 159, cm, 12/16/20 13:47:00 EST, Height, 74.1, kg, 10/20/20 16:18:00 EST, Dry Weight Start Date: 12/16/20 Status: Ordered Problem List Condition Effective Dates Status Health Status Inform ant Hematuria(Confirmed) 1 Active Chronic back pain(Confirmed) Active Dyslipidemia(Confirmed) Active h/o allergic rhinitis(Confirmed) Active Illiteracy(Confirmed) Active Dyspepsia(Confirmed) Active Disc displacement(Confirmed) Active [facility]/CC-Serena Purcell-[phone]/Health Longterm, Active Care Coordination(Confirmed) Active Tubular adenoma of colon - d ue 2021(Confirmed) 2 11/2015 Active 1 gross 2-2014, had cystoscopy 2014 Social History Social History Type Response Smoking Status Never smoker entered on: 08/23/16 Sex
--- OUTSIDE RECORDS SUMMARY | 2023-06-10 06:24 | XMS_ITS | Continuity of Care Document ---
Author Name Unknown Organization [facility] Address [address] [place] [address]- Care Team Providers Care Air And Water Filler Name Role Phone Raiza KRISHNA, Trenton Primary Care Physician [phone] [place]counter [facility] Date(s): 04/07/21 - 06/16/21 [facility] [address], [place] [address] Attending Physician: Lloyd Santiago MD Admitting [...] 10/12/10 Given 1Admin Note: VIS given 05/30/10, Ghanaian form 2Admin Note: VIS given, 08/2008, Ghanaian form Medications amLODIPine 2.5 mg oral tablet 2.5 mg, 1, tablet, By Mouth, Daily, ; STOP amlodipine 5 mg. use this dose instead., # 30 tablet, Refills 11, Tot. Refills 11, Maintenance, 11/22/20 16:52:00 EST, Route to Pharmacy Electronically, [facility]/pharmacy #[id number], label all scripts in TRISTANIAN,... Start Date: 11/22/20 Stop Date: 11/17/21 Status: Ordered azelastine 0.05% ophthalmic solution 1 drops, Eyes, Both, 2 times a day, PRN for allergy symptoms, # 6 mL, 6 Refills, Maintenance, 01/13/21 14:54:00 EDT, [facility]/pharmacy #[id number], Label in Ghanaian, 1 drops Eyes, Both 2 times a day,PRN:for allergy symptoms, 159, cm, 01/04/21 9:23:00 EDT, Height... Start Date: 01/13/21 Status: Ordered diclofenac 3% topical gel 1 application, Topically, 2 times a day, # 100 Gm, 0 Refills, Maintenance, 04/28/21 17:22:00 EDT, Gel, [facility]/pharmacy #[id number], Partial fill upon patient request if the prescription is for a schedule II opioid drug., 1 application Topically 2 times a day,... Start Date: 04/28/21 Status: Ordered Flonase 50 mcg/inh nasal spray 1 sprays, Nares, Both, Daily, # 16 Gm, 1 Refills, Maintenance, 06/16/20 18:04:00 EDT, [place], [id number], 159, cm, 06/08/20 13:31:00 EDT, Height Start Date: 06/16/20 Status: Ordered multivitamin Multiple Vitamins oral capsule 1 capsule, By Mouth, Daily, # 90 capsule, 1 Refills, Maintenance, 02/06/21 14:59:00 EDT, Capsule, [facility]/pharmacy #[id number], 1 capsule By Mouth Daily, 159, cm, 01/04/21 9:23:00 EDT, Height, 78, kg, 01/02/2116:06:00 EDT, Dry Weight Start Date: 02/06/21 Status: Ordered omeprazole 40 mg oral enteric coated capsule 1 capsule = 40 mg, By Mouth, 2 times a day, # 60 capsule, 2 Refills, Maintenance, 04/13/21 10:31:00EDT, EC Capsule, [facility]/pharmacy #[id number], Partial fill upon patient request [...] 04/28/21 17:18:00 EDT, Capsule, [facility]/pharmacy #[id number], grenadian labeling, 159, cm, 04/28/2115:46:00 EDT, Height, 78, kg, 01/01/21 16:06:00 EDT... Start Date: 04/28/21 Stop Date: 05/01/21 Status: Ordered Tums 500 mg oral tablet, chewable 500 mg, 1, tablet, Chew, 2 times a day, # 60 tablet, Refills 5, Tot. Refills 5, Maintenance, 12/16/20 14:32:00 EST, Route to Pharmacy Electronically, [facility]/pharmacy #[id number], 159, cm, 12/16/20 13:47:00 EST, Height, 74.1, kg, 10/20/20 16:18:00 EST, Dry Weight Start Date: 12/16/20 Status: Ordered Problem List Condition Effective Dates Status Health Status Inform ant Hematuria(Confirmed) 1 Active Chronic back pain(Confirmed) Active Dyslipidemia(Confirmed) Active h/o allergic rhinitis(Confirmed) Active Illiteracy(Confirmed) Active Dyspepsia(Confirmed) Active Disc displacement(Confirmed) Active Onychomycosis(Confirmed) Active [facility]/CC-Serena Purcell-[phone]/Health [facility], Active Care Coordination(Confirmed) Active Muscle spasm(Confirmed) Active Tubular adenoma of colon - d ue 2021(Confirmed) 2 11/2015 Active 1lul 2-2014, had cystoscopy 2014 Social History Social History Type Response Smoking Status Never smoker entered on: 08/23/16 Sex
--- OUTSIDE RECORDS SUMMARY | 2023-06-10 06:24 | XMS_ITS | Continuity of Care Document ---
Author Name Unknown Organization [facility] Address [address] [place] [address]- Care Team Providers Care Director Orange Name Role Phone Trenton Eastman MD Primary Care Physician [phone] [place] [facility] [place]13[place] - 08/12/22 [facility] [address] [place] [address] Allergies, Adverse Reactions, Alerts Substance Reaction Severity Status penicillins Superficial gravel r enid Itching Active Immunizations Given and Recorded Vaccine Date Status Refusal Reason SARS-CoV-2 mRNA ([id number]) vax 06/13/22 Recorded SARS-CoV-2 (COVID-19) mRNA BNT-162b2 [...] 10/12/10 Given 1Admin Note: VIS given 05/30/10, Mosotho form 2Admin Note: VIS given, 08/2008, Mosotho form Medications amLODIPine 2.5 mg oral tablet 1 tablet, By Mouth, Daily, USE THIS DOSE INSTEAD., # 90 tablet, 5 Refills, [id number], 157.5, cm, 04/10/22 10:29:00 EDT, Height, 75, kg, 03/25/22 2:00:00 EDT, Dry Weight Start Date: 05/04/22 Status: Ordered azelastine 0.05% ophthalmic solution 1 drops, Eyes, Both, 2 times a day, PRN for allergy symptoms, For eye allergies, # 6 mL, 6 Refills,Maintenance, 02/28/22 16:27:00 EDT, [id number], Label in Mosotho, 1 drops Eyes, Both 2 times a day,PRN:for allergy symptoms,Instr:For eye aller... Start Date: 02/28/22 Status: Ordered azelastine 137 mcg/inh (0.1%) nasal spray 0 Refills, Maintenance, 12/07/21 11:16:00 EST, via Dr Glover, sales lead Start Date: 12/07/21 Status: Ordered baclofen 10 mg oral tablet See Instructions, JUAN RAMON JOAN TABLETA POR VIA ORAL KARLA BERRY AL MONICA, # 63 tablet, Refills 0, Instructions Replace Required Details, Route to Pharmacy Electronically, [id number], 157.5, cm, 04/10/22 10:29:00 EDT, Height, 75, [...] 1 Refills, Maintenance, 08/28/21 14:44:00 EST, Solution, [facility]/pharmacy #[id number], Partial fill upon patient request if the prescription is for... Start Date: 08/28/21 Status: Ordered ciclopirox topical 0.77% suspension 1 application, Topically, 2 times a day, Print instructions in azerbaijani, # 60 mL, 1 Refills, Maintenance, 07/11/22 11:00:00 EDT, Suspension, [facility]/pharmacy #[id number], Partial fill upon patient request if the prescription is for a schedule II opioid drug., 1... Start Date: 07/11/22 Status: Ordered clotrimazole 1% topical cream 1 application, Topically, 2 times a day, Print instructions in azerbaijani Apply to groin area, face, and also in between digits on both feet, # 100 Gm, 0 Refills, Maintenance, 07/11/22 11:00:00 EDT, Cream, [facility]/pharmacy #[id number], Partial fill upon patient r... Start Date: 07/11/22 Status: Ordered [facility] LUBRICANT EYE DROPS Maintenance, 12/07/21 11:16:00 EST, via Dr Glover, sales lead, Supply Start Date: 12/07/21 Status: Ordered cyclobenzaprine 5 mg oral tablet 0 Refills, Maintenance, 09/28/21 13:55:00 EST, Partial fill upon patient request if the prescription is for a schedule II opioid drug. Start Date: 09/28/21 Status: Ordered diclofenac 3% topical gel 1 application, Topically, 2 times a day, # 100 Gm, 0 Refills, Maintenance, 04/28/21 17:22:00 EDT, Gel, [facility]/pharmacy #[id number], Partial fill upon patient request if the prescription is for a schedule II opioid drug., 1 application Topically 2 times a day,... Start Date: 04/28/21 Status: Ordered famotidine 40 mg oral tablet 1 tablet = 40 mg, By Mouth, 2 times a day, take 2x/day for 2 weeks then decrease to daily, # 60 tablet, 2 Refills, Maintenance, 06/24/22 12:04:00 EDT, Tablet, [facility]/pharmacy #[id number], Partial fill upon patient request if the prescription is for a schedule... Start Date: 06/24/22 Stop Date: 09/22/22 Status: Ordered Flonase 50 mcg/inh nasal spray 1 sprays, Nares, Both, Daily, # 16 Gm, 1 Refills, Maintenance, 11/30/21 10:55:00 EST, [place], [facility]/pharmacy #[id number], 1 sprays Nares, Both Daily, 159, cm, 11/30/21 9:50:00 EST, Height, 78, kg, 01/01/21 16:06:00 EDT, Dry Weight Start Date: 11/30/21 Status: Ordered loratadine 10 mg oral tablet 10 mg, 1, tablet, By Mouth, Daily, # 30 tablet, Refills 5, Tot. Refills 5, Maintenance, 12/18/21 10:54:00 EST, [id number] Partial fill upon patient request if the prescription is for a schedule II opioid drug... Start Date: 12/18/21 Status: Ordered LUBRICNT EYE JESSICA 0.4-0.3% Maintenance, 12/07/21 11:16:00 EST, via Dr Glover, sales lead, Supply Start Date: 12/07/21 Status: Ordered minoxidil 2% topical solution 1 mL = 0.02 Gm, Topically, 2 times a day, # 60 mL, 2 Refills, Maintenance, 02/28/22 16:27:00 EDT, Solution, [id number] Partial fill upon patient request if the prescription is for a scheduleII opioid drug., 1 mL Topically 2 times a day, 159,... Start Date: 02/28/22 Status: Ordered multivitamin Multiple Vitamins oral capsule 1 capsule, By Mouth, Daily, # 90 capsule, 1 Refills, Maintenance, 03/22/22 15:18:00 EDT, Capsule, [facility]/pharmacy #[id number], 1 capsule By Mouth Daily, 159, cm, 03/22/22 10:39:00 EDT, Height, 78, kg, 01/01/21 16:06:00 EDT, Dry Weight Start Date: 03/22/22 Status: Ordered NuLYTELY with Flavor Packs oral powder for reconstitution 240 mL, By Mouth, Every 10 minutes, # 1 each, 0 Refills, Maintenance, 09/21/21 9:33:00 EST, [facility] Pow[facility] upon patient request if [...] EDT, He... Start Date: 06/11/22 Status: Ordered Al[place]-3 1000 mg oral capsule via psychiatry, 0 Refills, Maintenance, 12/07/21 11:13:00 EST, Partial fill upon patient request ifthe prescription is for a schedule II opioid drug. Start Date: 12/07/21 Status: Ordered omeprazole 40 mg oral enteric coated capsule 1 capsule = 40 mg, By Mouth, 2 times a day, # 60 capsule, 2 Refills, Maintenance, 06/11/22 8:55:00 EDT, EC Capsule, [facility]/pharmacy #[id number], Partial fill upon patient request if the prescription is for a schedule II opioid drug., 157.5, cm, 04/10/22 10:29:... Start Date: 06/11/22 Stop Date: 09/09/22 Status: Ordered Lynette-Colace 50 mg-8.6 mg oral tablet 2 tablet, By Mouth, Daily at bedtime, PRN Constipation, For constipation, # 60 tablet, 0 Refills, Maintenance, 01/02/22 20:52:00 EDT, Tablet, [facility]/pharmacy #[id number], Partial fill upon patient request if [...] mL, 4 Refills, Maintenance, 02/28/22 16:09:00 EDT, [place], [id number], Partial fill upon patient request if the prescription is for a schedule II opioid drug., 1 sprays N... Start Date: 02/28/22 Status: Ordered tamsulosin 0.4 mg oral capsule 0.4 mg, 1, capsule, By Mouth, Daily, at night (print label in azerbaijani), # 30 capsule, Refills 1, Tot. Refills 1, Maintenance, 09/28/21 14:03:00 EST, Route to Pharmacy Electronically, [facility], Partial fill upon patient request if the... Start Date: 09/28/21 Status: Ordered Tears Naturale Forte preserved ophthalmic solution 1 drops, Eyes, Both, 2 times a day, PRN for dry eyes, # 30 mL, 0 Refills, Maintenance, 08/28/21 14:52:00 EST, Solution, [facility]/pharmacy #[id number], Partial fill upon patient request if the prescription is for a schedule II opioid drug., 1 drops Eyes, Both 2 t... Start Date: 08/28/21 Status: Ordered tiZANidine 2 mg oral capsule 1 capsule = 2 mg, By Mouth, 3 times a day, PRN as needed for muscle spasm, # 9 capsule, 0 Refills, Maintenance, 04/28/21 17:18:00 EDT, Capsule, [facility]/pharmacy #[id number], azerbaijani labeling, 159, cm, 04/28/2115:46:00 EDT, Height, 78, kg, 01/01/21 16:06:00 EDT... Start Date: 04/28/21 Stop Date: 05/01/21 Status: Ordered Tums 500 mg oral tablet, chewable 500 mg, 1, tablet, Chew, 2 times a day, # 60 tablet, Refills 5, Tot. Refills 5, Maintenance, 12/16/20 14:32:00 EST, Route to Pharmacy Electronically, [facility]/pharmacy #[id number], 159, cm, 12/16/20 13:47:00 EST, Height, [...] Confirmed Active Onychomycosis Confirmed Active *[facility]/CC-Mary gayle [phone]/[facility], Active Care Coordination Confirmed Active Nasal septum perforation, h/o cocaine Confirmed Active Muscle spasm Confirmed Active Tubular adenoma of colon - due 2021 2 Confirmed 11/2015 Active 1, gross 2-2014, had cystoscopy 2014 removed 2015 Social History Social History Type Response Smoking Status Never smoker entered on: 08/23/16 Sex Patient Care team information Personnel Name: Trenton Eastman MD Address: Address: [address] [place] [address] [place], [place] [address]
--- OUTSIDE RECORDS SUMMARY | 2023-06-10 06:24 | XMS_ITS | Continuity of Care Document ---
Author Name Unknown Organization [facility] Address [address] [place] [address]- Care Team Providers Care Road Grader Operator Name Role Phone Bebe KRISHNA, Hugh Primary Care Physician Encounter [facility] Date(s): 09/20/20 - 10/20/20 [facility] [address], [place] [address] Allergies, Adverse Reactions, Alerts Substance Reaction Severity Status penicillins Active Immunizations Given and Recorded Vaccine Date Status Refusal Reason influenza virus vaccine, inactivated 07/27/20 Give n influenza virus vaccine, inactivated 12/21/19 Give n influenza virus vaccine, inactivated 07/15/19 Give n influenza virus vaccine, inactivated 1 10/12/10 Gi jocy tetanus/diphtheria/pertussis, acel(Tdap) 2 10/12/10 Given 1Admin Note: VIS given 05/30/10, Venezuelan form 2Admin Note: VIS given, 08/2008, Venezuelan form Medications amLODIPine 5 mg oral tablet 5 mg, 1, tablet, By Mouth, Daily, # 90 tablet, Refills 10, Tot. Refills 10, Maintenance, 06/08/20 15:00:00 EDT, Route to Pharmacy Electronically, [facility]/pharmacy #[id number], 159, cm, 06/08/20 13:31:00 EDT, Height Start Date: 06/08/20 Stop Date: 02/23/23 Status: Ordered Artificial Tears preserved solution 1 drops, Eyes, Both, 2 times a day, PRN for dry eyes, # 10 mL, 0 Refills, Maintenance, 10/19/19 14:27:00 EST, [facility] 1 drops Eyes, Both 2 times a day,PRN:for dry eyes, 159, cm, 10/19/19 13:35:00 EST, Height Start Date: 10/19/19 Status: Ordered dextromethorphan 10 mg/5 mL oral syrup 10 mL = 20 mg, By Mouth, Every 4 hours, PRN as needed for cough, # 120 mL, 0 Refills, Maintenance, 06/21/20 22:41:00 EDT, Syrup, [facility]/pharmacy #[id number], 159, cm, 06/08/20 13:31:00 EDT, Height Start Date: 06/21/20 Status: Ordered Flonase 50 mcg/inh nasal spray 1 sprays, Nares, Both, 2 times a day, # 16 Gm, 1 Refills, Maintenance, 06/16/20 18:04:00 EDT, [place], [facility]/pharmacy #[id number], 1 sprays Nares, Both 2 times a day, 159, cm, 06/08/20 13:31:00 EDT, Height Start Date: 06/16/20 Status: Ordered meloxicam 15 mg oral tablet 1 tablet = 15 mg, By Mouth, Daily, # 30 tablet, 1 Refills, Maintenance, 09/12/20 13:30:00 EST, Tablet, [facility] Partial fill upon patient request, 159, cm, 07/27/20 13:20:00 EDT, Height Start Date: 09/12/20 Stop Date: 09/13/21 Status: Ordered multivitamin Multiple Vitamins oral capsule 1 capsule, By Mouth, Daily, # 90 capsule, 11 Refills, Maintenance, 08/12/20 11:32:00 EDT, Capsule, [facility]/pharmacy #[id number], 1 capsule By Mouth Daily, 159, cm, 07/27/20 13:20:00 EDT, Height Start Date: 08/12/20 Status: Ordered Mylanta Maximum Strength oral suspension 20 mL, By Mouth, 4 times a day, between meals and at bedtime, # 240 mL, 1 Refills, Maintenance, 10/19/19 14:27:00 EST, Suspension, [facility] 20 mL By Mouth 4 times a day,Instr:between meals and at bedtime, 159, cm, 10/19/19 13:35:00... Start Date: 10/19/19 Status: Ordered omeprazole 40 mg oral enteric coated capsule 1 capsule = 40 mg, By Mouth, 2 times a day, # 60 capsule, 4 Refills, Maintenance, 10/05/20 14:48:00EST, EC Capsule, [facility]/pharmacy #[id number], Partial fill [...] MOOD STABILIZATION Start Date: 09/12/20 Status: Ordered sucralfate 1 gm oral tablet 1 Gm, 1, tablet, By Mouth, 2 times a day, # 14 tablet, Refills 0, Tot. Refills 0, Maintenance, 10/20/20 18:51:00 EST, [id number] Partial fill upon patient request if the prescription is for a schedule II opio... Start Date: 10/20/20 Stop Date: 10/27/20 Status: Ordered Tums 500 mg oral tablet, chewable 500 mg, 1, tablet, Chew, 2 times a day, # 60 tablet, Refills 3, Tot. Refills 3, Maintenance, 01/14/20 11:08:00 EDT, Route to Pharmacy Electronically, [facility], 159, cm, 12/21/19 13:52:00 EST, Height Start Date: 01/14/20 Status: Ordered Tylenol 8 HR Arthritis Pain 650 mg oral tablet, extended release 1 tablet = 650 mg, By Mouth, Every 8 hours, # 100 tablet, 1 Refills, Acute 09/11/21 13:31:00 EST, 09/12/20 13:30:00 EST, ER Tablet, [facility]., 159, cm, 07/27/20 13:20:00 EDT, Height Start Date: 09/12/20 Stop Date: 09/11/21 Status: Ordered Problem List Condition Effective Dates Status Health Status Inform ant Hematuria(Confirmed) 1 Active Chronic back pain(Confirmed) Active Dyslipidemia(Confirmed) Active h/o allergic rhinitis(Confirmed) Active Illiteracy(Confirmed) Active Dyspepsia(Confirmed) Active Disc displacement(Confirmed) Active BHN/ONECARE/CC-Serena Purcell-[phone]/Health Long Term, Active Care Coordination(Confirmed) Active Tubular adenoma of colon - d ue 2021(Confirmed) 2 11/2015 Active 1, gross 2-2014, had cystoscopy 2014 Social History Social History Type Response Smoking Status Never smoker entered on: 08/23/16 Sex
--- OUTSIDE RECORDS SUMMARY | 2023-06-10 06:24 | XMS_ITS | Continuity of Care Document ---
Author Name Unknown Organization [facility] Address [address] [place] [address]- Care Team Providers Care Pharmacy Data Analyst Name Role Phone Trenton Eastman MD Primary Care Physician [phone] Encounter [facility] Date(s): 01/07/23 - 02/06/23 [facility] [address] [place] [id number] Allergies, Adverse Reactions, Alerts Substance Reaction [...] inactivated 1 10/12/10 Gi jocy SARS-CoV-2 mRNA ([id number]) vax 06/13/22 Recorded SARS-CoV-2 (COVID-19) mRNA BNT-162b2 vac 09/13/21 Recorded SARS-CoV-2 (COVID-19) mRNA BNT-162b2 vac 02/27/21 Given SARS-CoV-2 (COVID-19) mRNA BNT-162b2 vac 02/06/21 Given tetanus-diphtheria toxoids (Td) 11/23/20 Given tetanus/diphtheria/pertussis, acel(Tdap) 2 10/12/10 Given 1Admin Note: VIS given 05/30/10, Ugandan form 2Admin Note: VIS given, 08/2008, Ugandan form Medications amLODIPine 5 mg oral tablet 5 mg, 1, tablet, By Mouth, Daily, # 90 tablet, Refills 3, Tot. Refills 3, Maintenance, 11/01/22 9:44:00 EST, [id number] Partial fill upon patient request ifthe prescription is for a schedule II opioid drug.,... Start Date: 11/01/22 Status: Ordered Artificial Tears preserved solution 1 drops, Eyes, Both, 2 times a day, PRN for dry eyes, # 30 mL, 2 Refills, Maintenance, 02/04/23 9:35:00 EDT, Solution, [id number] Partial fill upon patient request if the prescription is fora schedule II opioid drug., 1 drops Eyes, Both 2 ti... Start Date: 02/04/23 Status: Ordered Ativan 0.5 mg oral tablet 1 tablet = 0.5 mg, By Mouth, Once, new zealander label, take 30 mins to 1 hr before flight, # 2 tablet, 0Refills, Soft Stop, 10/08/22 17:54:00 EST, Tablet, [id number] Partial fill upon patient request if the prescription is for a schedule II opioi... Start Date: 10/08/22 Status: Ordered atorvastatin 40 mg oral tablet 1 tablet = 40 mg, By Mouth, Daily, # 30 tablet, 5 Refills, Maintenance, 12/19/22 14:49:00 EST, Tablet, [facility], Partial fill upon patient request if the prescription is for a schedule II opioid drug., 162.56, cm, 12/19/22 14:01:00 E... Start Date: 12/19/22 Status: Ordered azelastine 137 mcg/inh (0.1%) nasal spray 0 Refills, Maintenance, 12/07/21 11:16:00 EST, via Dr Glover, batch freezer Start Date: 12/07/21 Status: Ordered baclofen 10 mg oral tablet See Instructions, TOME JOAN TABLETA POR VIA ORAL KARLA VECES AL MONICA, # 63 tablet, Refills 0, Instructions Replace Required Details, Route to Pharmacy Electronically, [id number], 157.5, cm, 04/10/22 10:29:00 EDT, Height, 75, [...] 2 times a day, Print instructions in new zealander use only for toenails, # 60 mL, 1 Refills, Maintenance, 01/18/23 10:15:00 EDT, Suspension, [facility]/pharmacy #[id number], Partial fill uponpatient request if the prescription is for a sched... Start Date: 01/18/23 Status: Ordered [facility] LUBR[facility]ANT E[facility] DROPS Maintenance, 12/07/21 11:16:00 EST, via Dr Glover, batch freezer, Supply Start Date: 12/07/21 Status: Ordered diclofenac 1% topical gel 1 application, Topically, 4 times a day, # 100 Gm, 5 Refills, Maintenance, 12/07/22 11:37:00 EST, Gel, [facility]/pharmacy #[id number], Partial fill upon patient [...] 2 Refills, Maintenance, 06/24/22 12:04:00 EDT, Tablet, [facility]/pharmacy #[id number], Partial fill upon patient request if the prescription is for a schedule... Start Date: 06/24/22 Stop Date: 09/22/22 Status: Ordered Flomax 0.4 mg oral capsule 0.4 mg, 1, capsule, By Mouth, Daily, # 30 capsule, Refills 5, Tot. Refills 5, Maintenance, 11/07/2310:08:00 EST, Route to Pharmacy Electronically, [facility]/pharmacy #[id number], Partial fill upon patient request if the prescription is for a schedule II opioid d... Start Date: 11/07/22 Status: Ordered ketoconazole 2% topical cream 1 application, Topically, Daily, Print instructions in new zealander Use only on feet, # 60 Gm, 1 Refills, Maintenance, 01/18/23 10:16:00 EDT, Cream, [facility]/pharmacy #[id number], Partial fill upon patient [...] Maintenance, 12/07/21 11:16:00 EST, via Dr Glover, batch freezer, Supply Start Date: 12/07/21 Status: Ordered minoxidil 2% topical solution 1 mL = 0.02 Gm, Topically, 2 times a day, # 60 mL, 2 Refills, Maintenance, 02/28/22 16:27:00 EDT, Solution, [facility]/pharmacy #[id number], Partial fill upon patient [...] EDT, He... Start Date: 06/11/22 Status: Ordered Roy-3 1000 mg oral capsule via psychiatry, 0 Refills, Maintenance, 12/07/21 11:13:00 EST, Partial fill upon patient request ifthe prescription is for a schedule II opioid drug. Start Date: 12/07/21 Status: Ordered omeprazole 40 mg oral enteric coated capsule See Instructions, JUAN RAMON FRANCO CAPSULA DOS VECES AL MONICA, # 180 capsule, 1 Refills, Maintenance, 09/05/22 10:55:00 EST, [id number], 162.56, cm, 07/12/22 10:42:00 EDT, Height, 76.5, [...] 15:27:00 EDT, Tablet, [id number], label in Ugandan, 162.56,cm, 01/14/23 15:01:00 EDT, Height, 76.5, kg, [...] mL, 4 Refills, Maintenance, 02/28/22 16:09:00 EDT, [place], [id number], Partial fill upon patient request [...] Disc displacement Confirmed Active Onychomycosis Confirmed Active *BHN/ONECARE/CC-Patricia [phone]/[facility], Active Care Coordination Confirmed Active Nasal septum [...] Team Personnel Name: Raiza KRISHNA, Trenton Position: [facility] Resident Member Role: PCP Address: Address: [address] [place] [address] [place] [address]- Care Team Related Persons Name: AJAY BE Address: [place] [address] Name: KAMALJIT FUCHS Address: home [address] [place] [address] [place] [id number]
--- OUTSIDE RECORDS SUMMARY | 2023-06-10 06:24 | XMS_ITS | Continuity of Care Document ---
Author Name Unknown Organization [facility] Address [address] [place] [address]- Care Team Providers Care Market Research Manager Name Role Phone Raiza KRISHNA, Trenton Primary Care Physician Encounter [facility] Date(s): 09/27/22 - 10/27/22 [facility] [address] [place] [address] [id number] Allergies, Adverse Reactions, Alerts Substance Reaction Severity Status penicillins Superficial gravel r enid Itching Active Immunizations Given and Recorded Vaccine Date Status Refusal Reason SARS-CoV-2 mRNA ([id number]) vax 06/13/22 Recorded SARS-CoV-2 (COVID-19) mRNA BNT-162b2 [...] DOSE INSTEAD., # 90 tablet, 5 Refills, [id number], 157.5, cm, 04/10/22 10:29:00 EDT, Height, 75, kg, 03/25/22 2:00:00 EDT, Dry Weight Start Date: 05/04/22 Status: Ordered Artificial Tears preserved solution 1 drops, Eyes, Both, 2 times a day, PRN for dry eyes, # 30 mL, 0 Refills, Maintenance, 09/06/22 10:24:00 EST, Solution, [facility]/pharmacy #[id number], Partial fill upon patient request if the prescription is for a schedule II opioid drug., 1 drops Eyes, Both 2 t... Start Date: 09/06/22 Status: Ordered Ativan 0.5 mg oral tablet 1 tablet = 0.5 mg, By Mouth, Once, tunisian label, take 30 mins to 1 hr before flight, # 2 tablet, 0Refills, Soft Stop, 10/08/22 17:54:00 EST, Tablet, [facility]/pharmacy #[id number], Partial fill upon patient request if the prescription is for a schedule II opioi... Start Date: 10/08/22 Status: Ordered azelastine 137 mcg/inh (0.1%) nasal spray 0 Refills, Maintenance, 12/07/21 11:16:00 EST, via Dr Glover, creeler Start Date: 12/07/21 Status: Ordered baclofen 10 mg oral tablet See Instructions, JUAN RAMON JOAN TABLETA POR VIA ORAL KARLA VECES AL MONICA, # 63 tablet, Refills 0, Instructions Replace Required Details, Route to Pharmacy Electronically, [facility] [id number], 157.5, cm, 04/10/22 10:29:00 EDT, Height, 75, [...] 2 times a day, Print instructions in tunisian, # 60 mL, 1 Refills, Maintenance, 07/11/22 11:00:00 EDT, Suspension, [facility]/pharmacy #[id number], Partial fill upon patient request if the prescription is for a schedule II opioid drug., 1... Start Date: 07/11/22 Status: Ordered [facility] DROPS Maintenance, 12/07/21 11:16:00 EST, via Dr Glover, creeler, Supply Start Date: 12/07/21 Status: Ordered famotidine 40 mg oral tablet 1 tablet = 40 mg, By Mouth, 2 times a day, take 2x/day for 2 weeks then decrease to daily, # 60 tablet, 2 Refills, Maintenance, 06/24/22 12:04:00 EDT, Tablet, [facility]/pharmacy #[id number], Partial fill upon patient request if the prescription is for a schedule... Start Date: 06/24/22 Stop Date: 09/22/22 Status: Ordered loratadine 10 mg oral tablet 10 mg, 1, tablet, By Mouth, Daily, # 30 tablet, Refills 5, Tot. Refills 5, Maintenance, 12/18/21 10:54:00 EST, Route to Pharmacy Electronically, [facility]/pharmacy #[id number], Partial fill upon patient request if the prescription is for a schedule II opioid drug... Start Date: 12/18/21 Status: Ordered LUBRICNT EYE JESSICA 0.4-0.3% Maintenance, 12/07/21 11:16:00 EST, via Dr Glover, creeler, Supply Start Date: 12/07/21 Status: Ordered minoxidil 2% topical solution 1 mL = 0.02 Gm, Topically, 2 times a day, # 60 mL, 2 Refills, Maintenance, 02/28/22 16:27:00 EDT, Solution, [facility]/pharmacy #[id number], Partial fill upon patient [...] EDT, He... Start Date: 06/11/22 Status: Ordered [place]-3 1000 mg oral capsule via psychiatry, 0 Refills, Maintenance, 12/07/21 11:13:00 EST, Partial fill upon patient request ifthe prescription is for a schedule II opioid drug. Start Date: 12/07/21 Status: Ordered omeprazole 40 mg oral enteric coated capsule See Instructions, JUAN RAMON WEBB VECES AL MONICA, # 180 capsule, 1 Refills, Maintenance, 09/05/22 10:55:00 EST, [id number], 162.56, cm, 07/12/22 10:42:00 EDT, Height, 76.5, [...] day, # 60 mL, 0 Refills, Maintenance, 10/16/22 14:47:00 EST, [id number], Partial fill upon patient request if the prescription is for a schedule II opioid drug., 2 sprays Nares, Both 4 times a day, 162.56, cm,... Start Date: 10/16/22 Status: Ordered Simply Saline 0.9% spray 1 sprays, Nares, Both, Every 30 minutes, PRN for dry nasal passages, # 45 mL, 4 Refills, Maintenance, 02/28/22 16:09:00 EDT, [place], [id number], Partial fill upon patient request if the prescription is for a schedule II opioid drug., 1 sprays N... Start Date: 02/28/22 Status: Ordered Tears Naturale Forte preserved ophthalmic solution 1 drops, Eyes, Both, 2 times a day, PRN for dry eyes, # 30 mL, 0 Refills, Maintenance, 08/28/21 14:52:00 EST, Solution, [id number], Partial fill upon patient request if the prescription is for a schedule II opioid drug., 1 drops Eyes, Both 2 t... Start Date: 08/28/21 Status: Ordered Tylenol Extra Strength 500 mg [...] Confirmed Active Onychomycosis Confirmed Active *BHN/ONECARE/CC-Mary gayle [phone]/H ealt [facility], Active Care Coordination Confirmed Active Nasal septum perforation, h/o cocaine Confirmed Active Muscle spasm Confirmed Active Tubular adenoma of colon - due 2021 2 Confirmed 11/2015 Active 1, gross 2-2014, had cystoscopy 2014 Social History Social History Type Response Smoking Status Never smoker entered on: 08/23/16 Sex Patient Care team information Care Team Personnel Name: Raiza KRISHNA, Trenton Position: S Resident Member Role: PCP Address: Address: [address] [place] [address] [place] [address]- Care Team Related Persons Name: AJAY BE Address: [place] [address] Name: KAMALJIT FUCHS Address: home [address] [place] [id number]
--- OUTSIDE RECORDS SUMMARY | 2023-06-10 06:24 | XMS_ITS | Continuity of Care Document ---
Author Name Unknown Organization [facility] Address [address] [place] [address]- Care Team Providers Care Sales Solutions Representative Name Role Phone Bebe KRISHNA, Hugh Primary Care Physician Encounter [facility] [place] Date(s): 09/13/20 - 10/13/20 [facility] [address] [place], [place] [address] Allergies, Adverse Reactions, Alerts Substance Reaction Severity Status penicillins Active Immunizations Given and Recorded Vaccine Date Status Refusal Reason influenza virus vaccine, inactivated 07/27/20 Give n influenza virus vaccine, inactivated 12/21/19 Give n influenza virus vaccine, inactivated 07/15/19 Give n influenza virus vaccine, inactivated 1 10/12/10 Gi jocy tetanus/diphtheria/pertussis, acel(Tdap) 2 10/12/10 Given 1Admin Note: VIS given 05/30/10, Tristanian form 2Admin Note: VIS given, 08/2008, Tristanian form Medications amLODIPine 5 mg oral tablet 5 mg, 1, tablet, By Mouth, Daily, # 90 tablet, Refills 10, Tot. Refills 10, Maintenance, 06/08/20 15:00:00 EDT, Route to Pharmacy Electronically, [facility]/pharmacy #[id number], 159, cm, 06/08/20 13:31:00 EDT, Height Start Date: 06/08/20 Stop Date: 02/23/23 Status: Ordered Artificial Tears preserved solution 1 drops, Eyes, Both, 2 times a day, PRN for dry eyes, # 10 mL, 0 Refills, Maintenance, 10/19/19 14:27:00 EST, [facility] 1 drops Eyes, Both 2 times a day,PRN:for dry eyes, 159, cm, 10/19/19 13:35:00 EST, Height Start Date: 10/19/19 Status: Ordered dextromethorphan 10 mg/5 mL oral syrup 10 mL = 20 mg, By Mouth, Every 4 hours, PRN as needed for cough, # 120 mL, 0 Refills, Maintenance, 06/21/20 22:41:00 EDT, Syrup, [facility]/pharmacy #[id number], 159, cm, 06/08/20 13:31:00 EDT, Height Start Date: 06/21/20 Status: Ordered Flonase 50 mcg/inh nasal spray 1 sprays, Nares, Both, 2 times a day, # 16 Gm, 1 Refills, Maintenance, 06/16/20 18:04:00 EDT, [place], [facility]/pharmacy #[id number], 1 sprays Nares, Both 2 times a day, 159, cm, 06/08/20 13:31:00 EDT, Height Start Date: 06/16/20 Status: Ordered meloxicam 15 mg oral tablet 1 tablet = 15 mg, By Mouth, Daily, # 30 tablet, 1 Refills, Maintenance, 09/12/20 13:30:00 EST, Tablet, [facility]., Partial fill upon patient request, 159, cm, 07/27/20 13:20:00 EDT, Height Start Date: 09/12/20 Stop Date: 09/13/21 Status: Ordered multivitamin Multiple Vitamins oral capsule 1 capsule, By Mouth, Daily, # 90 capsule, 11 Refills, Maintenance, 08/12/20 11:32:00 EDT, [facility]apsule, [id number] 1 capsule By Mouth Daily, 159, cm, 07/27/20 13:20:00 EDT, Height Start Date: 08/12/20 Status: Ordered Mylanta Maximum Strength oral suspension 20 mL, By Mouth, 4 times a day, between meals and at bedtime, # 240 mL, 1 Refills, Maintenance, 10/19/19 14:27:00 EST, Suspension, [facility] 20 mL By Mouth 4 times a day,Instr:between meals and at bedtime, 159, cm, 10/19/19 13:35:00... Start Date: 10/19/19 Status: Ordered omeprazole 40 mg oral enteric coated capsule 1 capsule = 40 mg, By Mouth, Daily, # 30 capsule, 4 Refills, Maintenance, 10/05/20 14:48:00 EST, ECCapsule, [id number], Partial fill upon patient request if the prescription is for a schedule II opioid drug., 159, cm, 07/27/20 13:20:00 EDT, H... Start Date: 10/05/20 Stop Date: 03/04/21 Status: [...] 01/14/20 11:08:00 EDT, Route to Pharmacy Electronically, [facility]., 159, cm, 12/21/19 13:52:00 EST, Height Start Date: 01/14/20 Status: Ordered Tylenol 8 HR Arthritis Pain 650 mg oral tablet, extended release 1 tablet = 650 mg, By Mouth, Every 8 hours, # 100 tablet, 1 Refills, Acute 09/11/21 13:31:00 EST, 09/12/20 13:30:00 EST, ER Tablet, [facility], 159, cm, 07/27/20 13:20:00 EDT, Height Start Date: 09/12/20 Stop Date: 09/11/21 Status: Ordered Problem List Condition Effective Dates Status Health Status Inform ant Hematuria(Confirmed) 1 Active Chronic back pain(Confirmed) Active Dyslipidemia(Confirmed) Active h/o allergic rhinitis(Confirmed) Active Illiteracy(Confirmed) Active Dyspepsia(Confirmed) Active Disc displacement(Confirmed) Active [facility]N/[facility]ARE/CC-Serena Purcell-[phone]/[facility], Active Care Coordination(Confirmed) Active Tubular adenoma of colon - d ue 2021(Confirmed) 2 11/2015 Active 1lul 2-2014, had cystoscopy 2014 Social History Social History Type Response Smoking Status Never smoker entered on: 08/23/16 Sex
--- OUTSIDE RECORDS SUMMARY | 2023-06-10 06:24 | XMS_ITS | Continuity of Care Document ---
Author Name Unknown Organization [facility] Address [address] [place] [address]- Care Team Providers Care Sole Sewer Hand Name Role Phone Raiza KRISHNA, [place] Primary Care Physician [phone] Encounter [facility] Date(s): 12/04/21 - 01/03/22 [facility] [address] [place] [id number] Allergies, Adverse Reactions, Alerts Substance Reaction Severity [...] 10/12/10 Given 1Admin Note: VIS given 05/30/10, Portuguese form 2Admin Note: VIS given, 08/2008, Portuguese form Medications amLODIPine 2.5 mg oral tablet 2.5 mg, 1, tablet, By Mouth, Daily, ; STOP amlodipine 5 mg. use this dose instead., # 30 tablet, Refills 5, Tot. Refills 5, Maintenance, 11/17/21 16:52:00 EST, Route to Pharmacy Electronically,[facility]/pharmacy #[id number], label all scripts in SLOVENIAN, 1... Start Date: 11/17/21 Stop Date: 05/16/22 Status: Ordered azelastine 0.05% ophthalmic solution 1 drops, Eyes, Both, 2 times a day, PRN for allergy symptoms, For eye allergies, # 6 mL, 6 Refills,Maintenance, 12/18/21 10:53:00 EST, [facility]/pharmacy #[id number], Label in Portuguese, 1 drops Eyes, Both 2 times a day,PRN:for allergy symptoms,Instr:For eye aller... Start Date: 12/18/21 Status: Ordered azelastine 137 mcg/inh (0.1%) nasal spray 0 Refills, Maintenance, 12/07/21 11:16:00 EST, via Dr Glover, batteryman Start Date: 12/07/21 Status: Ordered buPROPion 150 [...] 1 Refills, Maintenance, 08/28/21 14:44:00 EST, Solution, [facility]/pharmacy #[id number], Partial fill upon patient request if the prescription is for... Start Date: 08/28/21 Status: Ordered [facility] Maintenance, 12/07/21 11:16:00 EST, via Dr Glover, batteryman, Supply Start Date: 12/07/21 Status: Ordered cyclobenzaprine 5 mg oral tablet 0 Refills, Maintenance, 09/28/21 13:55:00 EST, Partial fill upon patient request if the prescription is for a schedule II opioid drug. Start Date: 09/28/21 Status: Ordered diclofenac 3% topical gel 1 application, Topically, 2 times a day, # 100 Gm, 0 Refills, Maintenance, 04/28/21 17:22:00 EDT, Gel, [facility]/pharmacy #[id number], Partial fill upon patient request if the prescription is for a schedule II opioid drug., 1 application Topically 2 times a day,... Start Date: 04/28/21 Status: Ordered Flonase 50 mcg/inh nasal spray 1 sprays, Nares, Both, Daily, # 16 Gm, 1 Refills, Maintenance, 11/30/21 10:55:00 EST, [place], [facility]/pharmacy #[id number], 1 sprays Nares, Both Daily, 159, cm, 11/30/21 9:50:00 EST, Height, 78, kg, 01/01/21 16:06:00 EDT, Dry Weight Start Date: 11/30/21 Status: Ordered loratadine 10 mg oral tablet 10 mg, 1, tablet, By Mouth, Daily, # 30 tablet, Refills 5, Tot. Refills 5, Maintenance, 12/18/21 10:54:00 EST, Route to Pharmacy Electronically, [facility]/pharmacy #[id number], Partial fill upon patient request if the prescription is for a schedule II opioid drug... Start Date: 12/18/21 Status: Ordered LUBRICNT EYE JESSICA 0.4-0.3% Maintenance, 12/07/21 11:16:00 EST, via Dr Glover, batteryman, Supply Start Date: 12/07/21 Status: Ordered multivitamin Multiple Vitamins oral capsule 1 capsule, By Mouth, Daily, # 90 capsule, 0 Refills, Maintenance, 10/18/21 22:09:00 EST, Capsule, [facility]/pharmacy #[id number], 1 capsule By Mouth Daily, 159, cm, 10/05/21 13:26:00 EST, Height, 78, kg, 01/01/21 16:06:00 EDT, Dry Weight Start Date: 10/18/21 Status: Ordered NuLYTELY with Flavor Packs oral powder for reconstitution 240 mL, By Mouth, Every 10 minutes, # 1 each, 0 Refills, Maintenance, 09/21/21 9:33:00 EST, REC Powder, [facility] Partial fill upon patient request if the prescription is for a schedule II opioid drug., 240 mL By Mouth Every 10 minut... Start Date: 09/21/21 Status: Ordered [place]-3 1000 mg oral capsule via psychiatry, 0 Refills, Maintenance, 12/07/21 11:13:00 EST, Partial fill upon patient request ifthe prescription is for a schedule II opioid drug. Start Date: 12/07/21 Status: Ordered omeprazole 40 mg oral enteric coated capsule 1 capsule = 40 mg, By Mouth, 2 times a day, # 60 capsule, 2 Refills, Maintenance, 04/13/21 10:31:00EDT, EC Capsule, [facility]/pharmacy #[id number], Partial fill upon patient request if the prescription is for aschedule II opioid drug., 159, cm, 01/04/21 9:23:00... Start Date: 04/13/21 Stop Date: 07/12/21 Status: Ordered Lynette-Colace 50 mg-8.6 mg oral tablet 2 tablet, By Mouth, Daily at bedtime, PRN Constipation, For constipation, # 60 tablet, 0 Refills, Maintenance, 01/02/22 20:52:00 EDT, Tablet, [facility]/pharmacy #[id number], Partial fill upon patient [...] Mouth, Daily, at night (print label in prydeinig), # 30 capsule, Refills 1, Tot. Refills 1, Maintenance, 09/28/21 14:03:00 EST, Route to Pharmacy Electronically, [facility], Partial fill upon patient request if the... Start Date: 09/28/21 Status: Ordered Tears Naturale Forte preserved ophthalmic solution 1 drops, Eyes, Both, 2 times a day, PRN for dry eyes, # 30 mL, 0 Refills, Maintenance, 08/28/21 14:52:00 EST, Solution, [facility]/pharmacy #[id number], Partial fill upon patient request if the prescription is for a schedule II opioid drug., 1 drops Eyes, Both 2 t... Start Date: 08/28/21 Status: Ordered tiZANidine 2 mg oral capsule 1 capsule = 2 mg, By Mouth, 3 times a day, PRN as needed for muscle spasm, # 9 capsule, 0 Refills, Maintenance, 04/28/21 17:18:00 EDT, Capsule, [facility]/pharmacy #[id number], prydeinig labeling, 159, cm, 04/28/2115:46:00 EDT, Height, 78, kg, 01/01/21 16:06:00 EDT... Start Date: 04/28/21 Stop Date: 05/01/21 Status: Ordered Tums 500 mg oral tablet, chewable 500 mg, 1, tablet, Chew, 2 times a day, # 60 tablet, Refills 5, Tot. Refills 5, Maintenance, 12/16/20 14:32:00 EST, Route to Pharmacy Electronically, [facility]/pharmacy #[id number], 159, cm, 12/16/20 13:47:00 EST, Height, 74.1, kg, 10/20/20 16:18:00 EST, Dry Weight Start Date: 12/16/20 Status: Ordered Problem List Condition Effective Dates Status Health Status Inform ant Hematuria(Confirmed) 1 Active Chronic back pain(Confirmed) Active Dyslipidemia(Confirmed) Active Allergic rhinitis(Confirmed) Active Illiteracy(Confirmed) Active Dyspepsia(Confirmed) Active Disc displacement(Confirmed) Active Obese class I(Confirmed) Active Onychomycosis(Confirmed) Active *[facility]/CC-Patricia [phone]/[facility], Active Care Coordination(Confirmed) Active Nasal septum perforation, h/ o cocaine(Confirmed) Active Muscle spasm(Confirmed) Active Tubular adenoma of colon - d ue 2021(Confirmed) 2 11/2015 Active 1lul 2-2014, had cystoscopy 2014 Social History Social History Type Response Smoking Status Never smoker entered on: 08/23/16 Sex
--- OUTSIDE RECORDS SUMMARY | 2023-06-10 06:24 | XMS_ITS | Continuity of Care Document ---
Author Name Unknown Organization [facility] Address [address] [place] [address]- Care Team Providers Care Market Research Senior Project Manager Name Role Phone Bebe KRISHNA, Hugh Primary Care Physician [place] [facility] Date(s): 03/09/21 - 04/08/21 [facility] [address] [place], [place] [address] Allergies, Adverse Reactions, Alerts Substance [...] influenza virus vaccine, inactivated 1 10/12/10 Gi jcoy tetanus/diphtheria/pertussis, acel(Tdap) 2 10/12/10 Given 1Admin Note: VIS given 05/30/10, Hungarian form 2Admin Note: VIS given, 08/2008, Hungarian form Medications amLODIPine 2.5 mg oral tablet 2.5 mg, 1, tablet, By Mouth, Daily, ; STOP amlodipine 5 mg. use this dose instead., # 30 tablet, Refills 11, Tot. Refills 11, Maintenance, 11/22/20 16:52:00 EST, Route to Pharmacy Electronically, [facility]/pharmacy #[id number], label all scripts in MARTIN[place]QUAIS,... Start Date: 11/22/20 Stop Date: 11/17/21 Status: Ordered azelastine 0.05% ophthalmic solution 1 drops, Eyes, Both, 2 times a day, PRN for allergy symptoms, # 6 mL, 6 Refills, Maintenance, 01/13/21 14:54:00 EDT, [id number], Label in Hungarian, 1 drops Eyes, Both 2 times a day,PRN:for allergy symptoms, 159, cm, 01/04/21 9:23:00 EDT, Height... Start Date: 01/13/21 Status: Ordered diclofenac 1% topical gel 1 application, Topically, 4 times a day, not to exceed 32 grams/day, # 100 Gm, 2 Refills, Maintenance, 12/12/20 11:17:00 EST, Gel, [facility]/pharmacy #[id number], Label in Hungarian please, 159, cm, 12/12/20 10:33:00 EST, Height, 74.1, kg, 10/20/20 16:18:00 EST, DrCarlee Start Date: 12/12/20 Status: Ordered Flonase 50 mcg/inh nasal spray 1 sprays, Nares, Both, Daily, # 16 Gm, 1 Refills, Maintenance, 06/16/20 18:04:00 EDT, [place], [facility]/pharmacy #[id number], 159, cm, 06/08/20 13:31:00 EDT, [...] By Mouth, 2 times a day, for 30 days, # 60 capsule, 0 Refills, Hard Stop 04/13/21 10:31:00 EDT, 03/14/21 10:31:00 EDT, EC Capsule, [id number], Partial fill upon patient request if the prescription is for a schedule II opioid... Start Date: 03/14/21 Stop Date: 04/13/21 Status: Ordered omeprazole 40 mg oral enteric coated capsule 1 capsule = 40 mg, By Mouth, 2 times a day, # 60 capsule, 2 Refills, Maintenance, 04/13/21 10:31:00EDT, EC Capsule, [facility]/pharmacy #[id number], Partial fill upon patient [...] 14:32:00 EST, Route to Pharmacy Electronically, [facility]/pharmacy #[id number], 159, cm, 12/16/20 13:47:00 EST, Height, 74.1, kg, 10/20/20 16:18:00 EST, Dry Weight Start Date: 12/16/20 Status: Ordered Problem List Condition Effective Dates Status Health Status Inform ant Hematuria(Confirmed) 1 Active Chronic back pain(Confirmed) Active Dyslipidemia(Confirmed) Active h/o allergic rhinitis(Confirmed) Active Illiteracy(Confirmed) Active Dyspepsia(Confirmed) Active Disc displacement(Confirmed) Active [facility]/CC-Serena Purcell-[phone]/[facility], Active Care Coordination(Confirmed) Active Tubular adenoma of colon - d ue 2021(Confirmed) 2 11/2015 Active 1, gross 2-2014, had cystoscopy 2014 removed 2015 Social History Social History Type Response Smoking Status Never smoker entered on: 08/23/16 Sex
--- OUTSIDE RECORDS SUMMARY | 2023-06-10 06:25 | XMS_ITS | Continuity of Care Document ---
Author Name Unknown Organization [facility] Address [address] [place] [address]- Care Team Providers Care Inventory Transcriber Name Role Phone Bebe KRISHNA, Hugh Primary Care Physician Encounter [facility] Date(s): 06/16/20 - 07/16/20 [facility] [address] [place] [address]- [facility] Allergies, Adverse Reactions, Alerts Substance Reaction Severity Status penicillins Active Immunizations Given and Recorded Vaccine Date Status Refusal Reason influenza virus vaccine, inactivated 12/21/19 Give n influenza virus vaccine, inactivated 07/15/19 Give n influenza virus vaccine, inactivated 1 10/12/10 Gi jocy tetanus/diphtheria/pertussis, acel(Tdap) 2 10/12/10 Given 1Admin Note: VIS given 05/30/10, Haitian form 2Admin Note: VIS given, 08/2008, Haitian form Medications amLODIPine 5 mg oral tablet [...] 0 Refills, Maintenance, 10/19/19 14:27:00 EST, Solution, [facility], 1 drops Eyes, Both 2 times [...] Gm, 1 Refills, Maintenance, 06/16/20 18:04:00 EDT, [place], [facility]/pharmacy #[id number], 1 sprays Nares, Both 2 times a day, 159, cm, 06/08/20 13:31:00 EDT, Height Start Date: 06/16/20 Status: Ordered loratadine 10 mg oral tablet 10 mg, 1, tablet, By Mouth, Daily, # 30 tablet, Refills 2, Tot. Refills 2, Maintenance, 12/22/19 21:46:00 EST, Route to Pharmacy Electronically, [facility]/pharmacy #[id number], 159, cm, 12/21/19 13:52:00 EST, Height Start Date: 12/22/19 Stop Date: 03/15/20 Status: Ordered Mylanta Maximum Strength oral suspension 20 mL, By Mouth, 4 times a day, between meals and at bedtime, # 240 mL, 1 Refills, Maintenance, 10/19/19 14:27:00 EST, Suspension, [facility], 20 mL By Mouth 4 times a day,Instr:between meals and at bedtime, 159, cm, 10/19/19 13:35:00... Start Date: 10/19/19 Status: Ordered omeprazole 40 mg oral enteric coated capsule 1 capsule = 40 mg, By Mouth, Daily, # 30 capsule, 2 Refills, Maintenance, 05/12/20 11:33:00 EDT, ECCapsule, [facility]/pharmacy #[id number], 159, cm, 12/21/19 13:52:00 EST, Height Start Date: 05/12/20 Stop Date: 08/10/20 Status: Ordered prazosin 2 mg oral capsule via [facility], 0 Refills, Maintenance, 11/04/19 14:42:00 EST Start Date: 11/04/19 Status: Ordered QUEtiapine 200 mg oral tablet via [facility], Psychiatry, Refills 0, Maintenance, 11/04/19 14:42:00 EST Start Date: 11/04/19 Status: Ordered Tums 500 mg oral tablet, chewable 500 mg, 1, tablet, Chew, 2 times a day, # 60 tablet, Refills 3, Tot. Refills 3, Maintenance, 01/14/20 11:08:00 EDT, Route to Pharmacy Electronically, [facility], 159, cm, 12/21/19 13:52:00 EST, Height Start Date: 01/14/20 Status: Ordered Problem List Condition Effective Dates Status Health Status Inform ant Hematuria(Confirmed) 1 Active Chronic back pain(Confirmed) Active Depression(Confirmed) Active Dyslipidemia(Confirmed) Active h/o allergic rhinitis(Confirmed) Active Illiteracy(Confirmed) Active Dyspepsia(Confirmed) Active Disc displacement(Confirmed) Active *[facility], [facility], (Confirmed) 08/06/18 Active [facility] Purcell-[phone]/[facility], Active Care Coordination(Confirmed) Active Tubular adenoma of colon - d ue 2021(Confirmed) 2 11/2015 Active lul Vick 2-2014, had cystoscopy 2014 Social History Social History Type Response Smoking Status Never smoker entered on: 08/23/16 Sex
--- OUTSIDE RECORDS SUMMARY | 2023-06-10 06:25 | XMS_ITS | Continuity of Care Document ---
Author Name Unknown Organization [facility] y Address [address] [place] [address]- Care Team Providers Care Sorting Grapple Operator Name Role Phone Melvi KRISHNA, Samuel Palacios Primary Care Physician En[place] [facility] [place] Date(s): 11/26/19 - 02/05/20 [facility] [address] [place] [address]- Attending Physician: Not on Staff, Attending MD [...] VIS given, 08/2008, East Timorese form Medications Artificial Tears preserved solution 1 drops, Eyes, Both, 2 times a day, PRN for dry eyes, # 10 mL, 0 Refills, Maintenance, 10/19/19 14:27:00 EST, [facility], 1 drops Eyes, Both 2 times a day,PRN:for dry eyes, 159, cm, 10/19/19 13:35:00 EST, Height Start Date: 10/19/19 Status: Ordered loratadine 10 mg oral tablet 10 mg, 1, tablet, By Mouth, Daily, # 30 tablet, Refills 2, Tot. Refills 2, Maintenance, 12/22/19 21:46:00 EST, Route to Pharmacy Electronically, [facility]/pharmacy #[id number], 159, cm, 12/21/19 13:52:00 EST, Height Start Date: 12/22/19 Stop Date: 03/15/20 Status: Ordered meloxicam 15 mg oral tablet 1 tablet = 15 mg, By Mouth, Daily, # 30 tablet, 3 Refills, Maintenance, 01/06/20 14:22:00 EDT, Tablet, [facility] 159, cm, 12/21/19 13:52:00 EST, Height Start Date: 01/06/20 Stop Date: 05/05/20 Status: Ordered Mylanta Maximum Strength oral suspension 20 mL, By Mouth, 4 times a day, between meals and at bedtime, # 240 mL, 1 Refills, Maintenance, 10/19/19 14:27:00 EST, Suspension, [facility] 20 mL By Mouth 4 times a day,Instr:between meals and at bedtime, 159, cm, 10/19/19 13:35:00... Start Date: 10/19/19 Status: Ordered omeprazole 40 mg oral enteric coated capsule 1 capsule = 40 mg, By Mouth, Daily, # 30 capsule, 2 Refills, Maintenance, 01/14/20 11:09:00 EDT, ECCapsule, [facility] 159, cm, 12/21/19 13:52:00 EST, Height [...] 01/14/20 11:08:00 EDT, Route to Pharmacy Electronically, [facility] 159, cm, 12/21/19 13:52:00 EST, Height Start Date: 01/14/20 Status: Ordered Problem List Condition Effective Dates Status Health Status Inform ant Hematuria(Confirmed) 1 Active Chronic back pain(Confirmed) Active Depression(Confirmed) Active Dyslipidemia(Confirmed) Active h/o allergic rhinitis(Confirmed) Active Illiteracy(Confirmed) Active Disc displacement(Confirmed) Active *[facility] [place], [facility] res, (Confirmed) 08/06/18 Active N/[facility]/Tashia Purcell-[phone]/[facility], Active Care Coordination(Confirmed) Active Tubular adenoma of colon - d ue 2021(Confirmed) 2 11/2015 Active 1 gross 2-2014, had cystoscopy 2014 Social History Social History Type Response Smoking Status Never smoker entered on: 08/23/16 Sex
--- OUTSIDE RECORDS SUMMARY | 2023-06-10 06:25 | XMS_ITS | Continuity of Care Document ---
Author Name Unknown Organization [facility] Address [address] [place] [address]- Care Team Providers Care Mysql Dba Name Role Phone Bebe KRISHNA, Hugh Primary Care Physician Encounter [facility] Date(s): 12/05/20 - 01/04/21 [facility] [address] [place], [place] [address] Allergies, Adverse Reactions, Alerts Substance Reaction Severity Status penicillins Active Immunizations Given and Recorded Vaccine Date Status Refusal Reason tetanus-diphtheria toxoids (Td) 11/23/20 Given influenza virus vaccine, inactivated 07/27/20 Give n influenza virus vaccine, inactivated 12/21/19 Give n influenza virus vaccine, inactivated 07/15/19 Give n influenza virus vaccine, inactivated 1 10/12/10 Gi jocy tetanus/diphtheria/pertussis, acel(Tdap) 2 10/12/10 Given 1Admin Note: VIS given 05/30/10, Mongolian form 2Admin Note: VIS given, 08/2008, Mongolian form Medications amLODIPine 2.5 mg oral tablet 2.5 mg, 1, tablet, By Mouth, Daily, ; STOP amlodipine 5 mg. use this dose instead., # 30 tablet, Refills 11, Tot. Refills 11, Maintenance, 11/22/20 16:52:00 EST, Route to Pharmacy Electronically, [facility]/pharmacy #[id number], label all scripts in [place],... Start Date: 11/22/20 Stop Date: 11/17/21 Status: Ordered diclofenac 1% topical gel 1 application, Topically, 4 times a day, not to exceed 32 grams/day, # 100 Gm, 2 Refills, Maintenance, 12/12/20 11:17:00 EST, Gel, [facility]/pharmacy #[id number], Label in Mongolian please, 159, cm, 12/12/20 10:33:00 EST, Height, 74.1, kg, 10/20/20 16:18:00 EST, Start Date: 12/12/20 Status: Ordered Flonase 50 mcg/inh nasal spray 1 sprays, Nares, Both, Daily, # 16 Gm, 1 Refills, Maintenance, 06/16/20 18:04:00 EDT, [place], [facility]/pharmacy #[id number], 159, cm, 06/08/20 13:31:00 EDT, Height Start Date: 06/16/20 Status: Ordered lidocaine 4% topical film 1 patch, Topically, Daily, for 6 days, # 6 patch, 0 Refills, Acute 01/07/21 15:32:00 EDT, 01/01/21 15:32:00 EDT, Film, [facility]/pharmacy #[id number], Partial [...] 01/05/21 15:32:00 EDT, 01/01/21 15:32:00 EDT, Tablet, [facility]/pharmacy #[id number], Partial fill upon patient request... Start [...] Electronically, [facility]/pharmacy #[id number], 159, cm, 12/16/20 13:47:00 EST, Height, 74.1, kg, 10/20/20 16:18:00 EST, Dry Weight Start Date: 12/16/20 Status: Ordered Tylenol 8 HR Arthritis Pain 650 mg oral tablet, extended release 1 tablet = 650 mg, By Mouth, Every 8 hours, # 100 tablet, 1 Refills, Acute 12/05/21 9:00:00 EST, 12/05/20 15:26:00 EST, ER Tablet, [facility]/pharmacy #[id number], 159, cm, 07/27/20 13:20:00 EDT, Height, 74.1, kg, 10/20/20 16:18:00 EST, Dry Weight Start Date: 12/05/20 Stop Date: 12/05/21 Status: Ordered Problem List Condition Effective Dates Status Health Status Inform ant Hematuria(Confirmed) 1 Active Chronic back pain(Confirmed) Active Dyslipidemia(Confirmed) Active h/o allergic rhinitis(Confirmed) Active Illiteracy(Confirmed) Active Dyspepsia(Confirmed) Active Disc displacement(Confirmed) Active [facility]-Serena Purcell-[phone]/[facility], Active Care Coordination(Confirmed) Active Tubular adenoma of colon - d ue 2021(Confirmed) 2 11/2015 Active 1, gross 2-2014, had cystoscopy 2014 Social History Social History Type Response Smoking Status Never smoker entered on: 08/23/16 Sex
--- OUTSIDE RECORDS SUMMARY | 2023-06-10 06:25 | XMS_ITS | Continuity of Care Document ---
Author Name Unknown Organization [facility] Address [address] [place] [id number]- Care Team Providers Care Feather Shaper Name Role Phone Melvi KRISHNA, Samuel Palacios Primary Care Physician [phone] [place] [facility] [place]s): 01/06/20 - 01/13/20 [facility] [address] [place] [id number]- [facility] Encounter Diagnosis Chronic back pain(Discharge Diagnosis) - 01/06/20 Attending Physician: Manish De La Paz MD Allergies, Adverse Reactions, Alerts Substance Reaction Severity Status penicillins Active Immunizations Given and Recorded Vaccine Date Status Refusal Reason influenza virus vaccine, inactivated 12/21/19 Give n influenza virus vaccine, inactivated 07/15/19 Give n influenza virus vaccine, inactivated 1 10/12/10 Gi jocy tetanus/diphtheria/pertussis, acel(Tdap) 2 10/12/10 Given 1Admin Note: VIS given 05/30/10, Haitian form 2Admin Note: VIS given, 08/2008, Haitian form Medications Artificial Tears preserved solution 1 drops, Eyes, Both, 2 times a day, PRN for dry eyes, # 10 mL, 0 Refills, Maintenance, 10/19/19 14:27:00 EST, Solution, [facility] 1 drops Eyes, Both 2 times a day,PRN:for dry eyes, 159, cm, 10/19/19 13:35:00 EST, Height Start Date: 10/19/19 Status: Ordered loratadine 10 mg oral tablet 10 mg, 1, tablet, By Mouth, Daily, # 30 tablet, Refills 2, Tot. Refills 2, Maintenance, 12/22/19 21:46:00 EST, Route to Pharmacy Electronically, [facility]/pharmacy #[id number], 159, cm, 12/21/19 13:52:00 EST, Height Start Date: 12/22/19 Stop Date: 03/15/20 Status: Ordered meloxicam 15 mg oral tablet 1 tablet = 15 mg, By Mouth, Daily, # 30 tablet, 3 Refills, Maintenance, 01/06/20 14:22:00 EDT, Tablet, [facility] 159, cm, 12/21/19 13:52:00 EST, Height Start Date: 01/06/20 Stop Date: 05/05/20 Status: Ordered Mylanta Maximum Strength oral suspension 20 mL, By Mouth, 4 times a day, between meals and at bedtime, # 240 mL, 1 Refills, Maintenance, 10/19/19 14:27:00 EST, Suspension, [facility] 20 mL By Mouth 4 times a day,Instr:between meals and at bedtime, 159, cm, 10/19/19 13:35:00... Start Date: 10/19/19 Status: Ordered omeprazole 40 mg oral enteric coated capsule 1 capsule = 40 mg, By Mouth, Daily, # 30 capsule, 3 Refills, Maintenance, 10/29/19 17:25:00 EST, ECCapsule, [facility]/pharmacy #[id number], 159, cm, 10/19/19 13:35:00 EST, [...] 11/18/19 16:31:00 EST, Route to Pharmacy Electronically, [facility]/pharmacy #[id number], 159, cm, 11/18/19 15:55:00 EST, Height Start Date: 11/18/19 Status: Ordered Problem List Condition Effective Dates Status Health Status Inform ant Hematuria(Confirmed) 1 Active Chronic back pain(Confirmed) Active Depression(Confirmed) Active Dyslipidemia(Confirmed) Active h/o allergic rhinitis(Confirmed) Active Illiteracy(Confirmed) Active Disc displacement(Confirmed) Active *[facility], [facility], (Confirmed) 08/06/18 Active N/[facility]/-Serena Purcell-[phone]/Health Long Term, Active Care Coordination(Confirmed) Active Tubular adenoma of colon - d ue 2021(Confirmed) 2 11/2015 Active lul Vick 2-2014, had cystoscopy 2014 Diagnosis Diagnosis Type Effective Dates Health Status Cl inical Service Informant Chronic back pain Discharge Diagnosis 01/06/20 Social History Social History Type Response Smoking Status Never smoker entered on: 08/23/16 Sex
--- OUTSIDE RECORDS SUMMARY | 2023-06-10 06:25 | XMS_ITS | Continuity of Care Document ---
Author Name Unknown Organization [facility] Address [address] [place] [address]- Care Team Providers Care Milk Bottler Name Role Phone Raiza KRISHNA, Trenton Primary Care Physician [phone] Encounter [facility] Date(s): 06/01/22 - 07/01/22 [facility] [address] [place] [id number] Allergies, Adverse Reactions, Alerts Substance Reaction Severity Status penicillins Superficial gravel r enid Itching Active Immunizations Given and Recorded Vaccine Date Status Refusal Reason SARS-CoV-2 mRNA ([id number]) vax 06/13/22 Recorded SARS-CoV-2 (COVID-19) mRNA BNT-162b2 [...] Note: VIS given, 08/2008, Senegalese form Medications amLODIPine 2.5 mg oral tablet 1 tablet, By Mouth, Daily, USE THIS DOSE INSTEAD., # 90 tablet, 5 Refills, [id number], 157.5, cm, 04/10/22 10:29:00 EDT, Height, 75, kg, 03/25/22 2:00:00 EDT, Dry Weight Start Date: 05/04/22 Status: Ordered azelastine 0.05% ophthalmic solution 1 drops, Eyes, Both, 2 times a day, PRN for allergy symptoms, For eye allergies, # 6 mL, 6 Refills,Maintenance, 02/28/22 16:27:00 EDT, [id number], Label in Senegalese, 1 drops Eyes, Both 2 times a day,PRN:for allergy symptoms,Instr:For eye aller... Start Date: 02/28/22 Status: Ordered azelastine 137 mcg/inh (0.1%) nasal spray 0 Refills, Maintenance, 12/07/21 11:16:00 EST, via Dr Glover, process safety engineer Start Date: 12/07/21 Status: Ordered baclofen 10 mg oral tablet See Instructions, JUAN RAMON JOAN TABLETA POR VIA ORAL KARLA VECES AL MONICA, # 63 tablet, Refills 0, Instructions Replace Required Details, Route to Pharmacy Electronically, [id number], 157.5, cm, 04/10/22 10:29:00 EDT, Height, 75, [...] 1 Refills, Maintenance, 08/28/21 14:44:00 EST, Solution, [facility]/pharmacy #[id number], Partial fill upon patient request if the prescription is for... Start Date: 08/28/21 Status: Ordered clotrimazole 1% topical cream 1 application, Topically, 2 times a day, for 14 days, # 60 Gm, 1 Refills, Acute 07/11/22 11:08:00 EDT, 06/13/22 11:08:00 EDT, Cream, [facility]/pharmacy #[id number], Partial fill upon patient request if the prescription is for a schedule II opioid drug., 1 applica... Start Date: 06/13/22 Stop Date: 07/11/22 Status: Ordered [facility]OPS Maintenance, 12/07/21 11:16:00 EST, via Dr Glover, process safety engineer, Supply Start Date: 12/07/21 Status: Ordered cyclobenzaprine 5 mg oral tablet 0 Refills, Maintenance, 09/28/21 13:55:00 EST, Partial fill upon patient request if the prescription is for a schedule II opioid drug. Start Date: 09/28/21 Status: Ordered diclofenac 3% topical gel 1 application, Topically, 2 times a day, # 100 Gm, 0 Refills, Maintenance, 04/28/21 17:22:00 EDT, Gel, [facility]/pharmacy #[id number], Partial fill upon [...] 2 Refills, Maintenance, 06/24/22 12:04:00 EDT, Tablet, [facility]/pharmacy #[id number], Partial fill upon patient request if the prescription is for a schedule... Start Date: 06/24/22 Stop Date: 09/22/22 Status: Ordered Flonase 50 mcg/inh nasal spray 1 sprays, Nares, Both, Daily, # 16 Gm, 1 Refills, Maintenance, 11/30/21 10:55:00 EST, [place], [facility]/pharmacy #[id number], 1 sprays Nares, Both Daily, 159, cm, 11/30/21 9:50:00 EST, Height, 78, kg, 01/01/21 16:06:00 EDT, Dry Weight Start Date: 11/30/21 Status: Ordered loratadine 10 mg oral tablet 10 mg, 1, tablet, By Mouth, Daily, # 30 tablet, Refills 5, Tot. Refills 5, Maintenance, 12/18/21 10:54:00 EST, Route to Pharmacy Electronically, [facility]/pharmacy #[id number], Partial fill upon patient request if the prescription is for a schedule II opioid drug... Start Date: 12/18/21 Status: Ordered LUBRICNT EYE JESSICA 0.4-0.3% Maintenance, 12/07/21 11:16:00 EST, via Dr Glover, process safety engineer, Supply Start Date: 12/07/21 Status: Ordered minoxidil 2% topical solution 1 mL = 0.02 Gm, Topically, 2 times a day, # 60 mL, 2 Refills, Maintenance, 02/28/22 16:27:00 EDT, Solution, [facility]/pharmacy #[id number], Partial fill upon patient request if the prescription is for a scheduleII opioid drug., 1 mL Topically 2 times a day, 159,... Start Date: 02/28/22 Status: Ordered multivitamin Multiple Vitamins oral capsule 1 capsule, By Mouth, Daily, # 90 capsule, 1 Refills, Maintenance, 03/22/22 15:18:00 EDT, Capsule, [facility]/pharmacy #[id number], 1 capsule By Mouth Daily, 159, cm, 03/22/22 10:39:00 EDT, Height, 78, kg, 01/01/21 16:06:00 EDT, Dry Weight Start Date: 03/22/22 Status: Ordered NuLYTELY with Flavor Packs oral powder for reconstitution 240 mL, By Mouth, Every 10 minutes, # 1 each, 0 Refills, Maintenance, 09/21/21 9:33:00 EST, REC Powder, [facility], Partial fill upon patient request if the prescription is for a schedule II opioid drug., 240 mL By Mouth Every 10 minut... Start Date: 09/21/21 Status: Ordered NuLYTELY with Flavor Packs oral powder for reconstitution See Instructions, per GI office, # 4,000 mL, 0 Refills, Maintenance, 06/11/22 9:43:00 EDT, [facility]/pharmacy #[id number], Partial fill upon patient request if the prescription is for a schedule II opioid drug.,per GI office, 157.5, cm, 04/10/22 10:29:00 EDT, He... Start Date: 06/11/22 Status: Ordered [place]-3 1000 mg oral capsule via psychiatry, 0 Refills, Maintenance, 12/07/21 11:13:00 EST, Partial fill upon patient request ifthe prescription is for a schedule II opioid drug. Start Date: 12/07/21 Status: Ordered omeprazole 40 mg oral enteric coated capsule 1 capsule = 40 mg, By Mouth, 2 times a day, # 60 capsule, 2 Refills, Maintenance, 06/11/22 8:55:00 EDT, EC Capsule, [facility]/pharmacy #[id number], Partial fill upon patient request if the prescription is for a schedule II opioid drug., 157.5, cm, 04/10/22 10:29:... Start Date: 06/11/22 Stop Date: 09/09/22 Status: Ordered Lynette-Colace 50 mg-8.6 mg oral tablet 2 tablet, By Mouth, Daily at bedtime, PRN Constipation, For constipation, # 60 tablet, 0 Refills, Maintenance, 01/02/22 20:52:00 EDT, Tablet, [facility]/pharmacy #[id number], Partial fill upon [...] mL, 4 Refills, Maintenance, 02/28/22 16:09:00 EDT, [place], [facility]/pharmacy #[id number], Partial fill upon patient request if the prescription is for a schedule II opioid drug., 1 sprays N... Start Date: 02/28/22 Status: Ordered tamsulosin 0.4 mg oral capsule 0.4 mg, 1, capsule, By Mouth, Daily, at night (print label in frisian), # 30 capsule, Refills 1, Tot. Refills 1, Maintenance, 09/28/21 14:03:00 EST, Route to Pharmacy Electronically, [facility], Partial fill upon patient request if the... Start Date: 09/28/21 Status: Ordered Tears Naturale Forte preserved ophthalmic solution 1 drops, Eyes, Both, 2 times a day, PRN for dry eyes, # 30 mL, 0 Refills, Maintenance, 08/28/21 14:52:00 EST, Solution, [facility]/pharmacy #[id number], Partial fill upon patient request if the prescription is for a schedule II opioid drug., 1 drops Eyes, Both 2 t... Start Date: 08/28/21 Status: Ordered tiZANidine 2 mg oral capsule 1 capsule = 2 mg, By Mouth, 3 times a day, PRN as needed for muscle spasm, # 9 capsule, 0 Refills, Maintenance, 04/28/21 17:18:00 EDT, Capsule, [facility]/pharmacy #[id number], frisian labeling, 159, cm, 04/28/2115:46:00 EDT, Height, 78, kg, 01/01/21 16:06:00 EDT... Start Date: 04/28/21 Stop Date: 05/01/21 Status: Ordered Tums 500 mg oral tablet, chewable 500 mg, 1, tablet, Chew, 2 times a day, # 60 tablet, Refills 5, Tot. Refills 5, Maintenance, 12/16/20 14:32:00 EST, Route to Pharmacy Electronically, [facility]/pharmacy #[id number], 159, cm, 12/16/20 [...] Dyspepsia(Confirmed) Active Disc displacement(Confirmed) Active Onychomycosis(Confirmed) Active *[facility]/Valerie [phone]/Health Retirement, Active Care Coordination(Confirmed) Active Nasal septum perforation, h/ o cocaine(Confirmed) Active Muscle spasm(Confirmed) Active Tubular adenoma of colon - d ue 2021(Confirmed) 2 11/2015 Active 1, gross 2-2014, had cystoscopy 2014 Social History Social History Type Response Smoking Status Never smoker entered on: 08/23/16 Sex Care Team Personnel Name: Trenton Eastman MD Address: [address] [place] [address]
--- OUTSIDE RECORDS SUMMARY | 2023-06-10 06:25 | XMS_ITS | Continuity of Care Document ---
Author Name Unknown Organization [facility]3] Adult Medicine Address [address] [place] [address]- Care Team Providers Care Cover Marker Name Role Phone Bebe KRISHNA, Hugh Primary Care Physician [phone] Encounter [facility] [place] Date(s): 02/01/21 - 03/03/21 [facility]3] Adult Medicine [address], [place] [address] Allergies, Adverse Reactions, [...] 10/12/10 Given 1Admin Note: VIS given 05/30/10, Scottish form 2Admin Note: VIS given, 08/2008, Scottish form Medications amLODIPine 2.5 mg oral tablet 2.5 mg, 1, tablet, By Mouth, Daily, ; STOP amlodipine 5 mg. use this dose instead., # 30 tablet, Refills 11, Tot. Refills 11, Maintenance, 11/22/20 16:52:00 EST, Route to Pharmacy Electronically, [facility]/pharmacy #[id number], label all scripts in POLISH,... Start Date: 11/22/20 Stop Date: 11/17/21 Status: Ordered azelastine 0.05% ophthalmic solution 1 drops, Eyes, Both, 2 times a day, PRN for allergy symptoms, # 6 mL, 6 Refills, Maintenance, 01/13/21 14:54:00 EDT, [facility]/pharmacy #[id number], Label in Scottish, 1 drops Eyes, Both 2 times a day,PRN:for allergy symptoms, 159, cm, 01/04/21 9:23:00 EDT, Height... Start Date: 01/13/21 Status: Ordered diclofenac 1% topical gel 1 application, Topically, 4 times a day, not to exceed 32 grams/day, # 100 Gm, 2 Refills, Maintenance, 12/12/20 11:17:00 EST, Gel, [facility]/pharmacy #[id number], Label in Scottish please, 159, cm, 12/12/20 10:33:00 EST, Height, 74.1, kg, 10/20/20 16:18:00 EST, Start Date: 12/12/20 Status: Ordered Flonase 50 mcg/inh nasal spray 1 sprays, Nares, Both, Daily, # 16 Gm, 1 Refills, Maintenance, 06/16/20 18:04:00 EDT, [place], [facility]/pharmacy #[id number], 159, cm, 06/08/20 13:31:00 EDT, Height Start Date: 06/16/20 Status: Ordered multivitamin Multiple Vitamins oral capsule 1 capsule, By Mouth, Daily, # 90 capsule, 1 Refills, Maintenance, 02/06/21 14:59:00 EDT, Capsule, [facility]/pharmacy #[id number], 1 capsule By Mouth Daily, [...] 4 Refills, Maintenance, 10/05/20 14:48:00EST, EC Capsule, [facility]/pharmacy #[id number], Partial fill upon patient request [...] 14:32:00 EST, Route to Pharmacy Electronically, [facility]/pharmacy #[id number], 159, cm, 12/16/20 13:47:00 EST, Height, 74.1, kg, 10/20/20 16:18:00 EST, Dry Weight Start Date: 12/16/20 Status: Ordered Tylenol 8 HR Arthritis Pain 650 mg oral tablet, extended release 1 tablet = 650 mg, By Mouth, Every 8 hours, # 100 tablet, 1 Refills, Acute 12/05/21 9:00:00 EST, 12/05/20 15:26:00 EST, ER Tablet, [facility]/pharmacy #[id number], 159, cm, 07/27/20 13:20:00 EDT, Height, 74.1, kg, 10/20/20 16:18:00 EST, Dry Weight Start Date: 12/05/20 Stop Date: 12/05/21 Status: Ordered Problem List Condition Effective Dates Status Health Status Inform ant Hematuria(Confirmed) 1 Active Chronic back pain(Confirmed) Active Dyslipidemia(Confirmed) Active h/o allergic rhinitis(Confirmed) Active Illiteracy(Confirmed) Active Dyspepsia(Confirmed) Active Disc displacement(Confirmed) Active [facility]-Serena Purcell-[phone]/Health Longterm, Active Care Coordination(Confirmed) Active Tubular adenoma of colon - d ue 2021(Confirmed) 11/2015 Active 1lul -2014, had cystoscopy 2014 Social History Social History Type Response Smoking Status Never smoker entered on: 08/23/16 Sex
--- OUTSIDE RECORDS SUMMARY | 2023-06-10 06:25 | XMS_ITS | Continuity of Care Document ---
Author Name Unknown Organization [facility] Adult [facility] Address [address] [place] [address]- Care Team Providers Care Teacher Theater Arts Name Role Phone Bebe KRISHNA, Hugh Primary Care Physician En[place] [facility] [place] Date(s): 10/03/20 - 11/02/20 [facility] [address], [place] [address] Allergies, Adverse Reactions, Alerts Substance Reaction Severity Status penicillins Active Immunizations Given and Recorded Vaccine Date Status Refusal Reason influenza virus vaccine, inactivated 07/27/20 Give n influenza virus vaccine, inactivated 12/21/19 Give n influenza virus vaccine, inactivated 07/15/19 Give n influenza virus vaccine, inactivated 1 10/12/10 Gi jocy tetanus/diphtheria/pertussis, acel(Tdap) 2 10/12/10 Given 1Admin Note: VIS given 05/30/10, Occitan form 2Admin Note: VIS given, 08/2008, Occitan form Medications amLODIPine 5 mg oral tablet 5 mg, 1, tablet, By Mouth, Daily, # 90 tablet, Refills 10, Tot. Refills 10, Maintenance, 06/08/20 15:00:00 EDT, Route to Pharmacy Electronically, [facility]/pharmacy #[id number], 159, cm, 06/08/20 13:31:00 EDT, Height Start Date: 06/08/20 Stop Date: 02/23/23 Status: Ordered Artificial Tears preserved solution 1 drops, Eyes, Both, 2 times a day, PRN for dry eyes, # 10 mL, 0 Refills, Maintenance, 10/19/19 14:27:00 EST, [facility], 1 drops Eyes, Both 2 times a day,PRN:for dry eyes, 159, cm, 10/19/19 13:35:00 EST, Height Start Date: 10/19/19 Status: Ordered Flonase 50 mcg/inh nasal spray 1 sprays, Nares, Both, Daily, # 16 Gm, 1 Refills, Maintenance, 06/16/20 18:04:00 EDT, [place], [facility]/pharmacy #[id number], 159, cm, 06/08/20 13:31:00 EDT, Height Start Date: 06/16/20 Status: Ordered multivitamin Multiple Vitamins oral capsule 1 capsule, By Mouth, Daily, # 90 capsule, 11 Refills, Maintenance, 08/12/20 11:32:00 EDT, Capsule, [facility]/pharmacy #[id number], 1 capsule By Mouth Daily, 159, cm, 07/27/20 13:20:00 EDT, Height Start Date: 08/12/20 Status: Ordered Mylanta Maximum Strength oral suspension 20 mL, By Mouth, 4 times a day, between meals and at bedtime, # 240 mL, 1 Refills, Maintenance, 10/19/19 14:27:00 EST, Suspension, [facility], 20 mL By Mouth 4 times a day,Instr:between meals and at bedtime, 159, cm, 10/19/19 13:35:00... Start Date: 10/19/19 Status: Ordered omeprazole 40 mg oral enteric coated capsule 1 capsule = 40 mg, By Mouth, 2 times a day, # 60 capsule, 4 Refills, Maintenance, 10/05/20 14:48:00EST, EC Capsule, [facility]/pharmacy [...] 10/20/20 18:51:00 EST, Route to Pharmacy Electronically, [facility]/pharmacy #[id number], Partial fill upon patient request if the prescription is for a schedule II opio... Start Date: 10/20/20 Stop Date: 10/27/20 Status: Ordered Tums 500 mg oral tablet, chewable 500 mg, 1, tablet, Chew, 2 times a day, # 60 tablet, Refills 3, Tot. Refills 3, Maintenance, 01/14/20 11:08:00 EDT, Route to Pharmacy Electronically, [facility], 159, cm, 12/21/19 13:52:00 EST, Height Start Date: 01/14/20 Status: Ordered Tylenol 8 HR Arthritis Pain 650 mg oral tablet, extended release 1 tablet = 650 mg, By Mouth, Every 8 hours, # 100 tablet, 1 Refills, Acute 09/11/21 13:31:00 EST, 09/12/20 13:30:00 EST, ER Tablet, [facility], 159, cm, 07/27/20 13:20:00 EDT, Height Start Date: 09/12/20 Stop Date: 09/11/21 Status: Ordered Problem List Condition Effective Dates Status Health Status Inform ant Hematuria(Confirmed) 1 Active Chronic back pain(Confirmed) Active Dyslipidemia(Confirmed) Active h/o allergic rhinitis(Confirmed) Active Illiteracy(Confirmed) Active Dyspepsia(Confirmed) Active Disc displacement(Confirmed) Active [facility]-Serena Purcell-[phone]/[facility], Active Care Coordination(Confirmed) Active Tubular adenoma of colon - d ue 2021(Confirmed) 2 11/2015 Active lul Vick 2-2014, had cystoscopy 2014 Social History Social History Type Response Smoking Status Never smoker entered on: 08/23/16 Sex
--- OUTSIDE RECORDS SUMMARY | 2023-06-10 06:25 | XMS_ITS | Continuity of Care Document ---
Author Name Unknown Organization [facility] Address [address] [place] [address]- Care Team Providers Care Percussion Instructor Name Role Phone Raiza KRISHNA, [place]on Primary Care Physician [facility] Date[facility]): 05[facility]23 - 05/31/23 [facility] [address] [place] [address] Allergies, Adverse Reactions, Alerts [...] inactivated 1 10/12/10 Gi jocy SARS-CoV-2 mRNA ([id number]) vax 06/13/22 Recorded SARS-CoV-2 (COVID-19) mRNA BNT-162b2 vac 09/13/21 Recorded SARS-CoV-2 (COVID-19) mRNA BNT-162b2 vac 02/27/21 Given SARS-CoV-2 (COVID-19) mRNA BNT-162b2 vac 02/06/21 Given tetanus-diphtheria toxoids (Td) 11/23/20 Given tetanus/diphtheria/pertussis, acel(Tdap) 2 10/12/10 Given 1Admin Note: VIS given 05/30/10, [place] form 2Admin Note: VIS given, 08/2008, [place] form Medications amLODIPine 5 mg oral tablet 5 mg, 1, tablet, By Mouth, Daily, # 90 tablet, Refills 3, Tot. Refills 3, Maintenance, 05/17/23 16:45:00 EDT, Route to Pharmacy Electronically, [facility]/pharmacy #[id number], Partial fill upon patient request if the prescription is for a schedule II opioid drug.... Start Date: 05/17/23 Status: Ordered Artificial Tears preserved solution 1 drops, Eyes, Both, 2 times a day, PRN for dry eyes, # 30 mL, 2 Refills, Maintenance, 02/04/23 9:35:00 EDT, Solution, [facility]/pharmacy #[id number], Partial fill upon patient request if the prescription is fora schedule II opioid drug., 1 drops Eyes, Both 2 ti... Start Date: 02/04/23 Status: Ordered azelastine 137 mcg/inh (0.1%) nasal spray 0 Refills, Maintenance, 12/07/21 11:16:00 EST, via Dr Glover, tunnel heading supervisor Start Date: 12/07/21 Status: Ordered buPROPion 150 mg/24 hours (XL) oral tablet, extended release via psychiatry, 0 Refills, Maintenance, 12/07/21 11:13:00 EST, Partial fill upon patient request ifthe prescription is for a schedule II opioid drug. Start Date: 12/07/21 Status: Ordered ciclopirox topical 0.77% suspension 1 application, Topically, 2 times a day, Print instructions in zambian use only for toenails, # 60 mL, 1 Refills, Maintenance, 01/18/23 10:15:00 EDT, Suspension, [facility]/pharmacy #[id number], Partial fill uponpatient request if the prescription is for a sched... Start Date: 01/18/23 Status: Ordered [facility] DROPS Maintenance, 12/07/21 11:16:00 EST, via Dr Glover, tunnel heading supervisor, Supply Start Date: 12/07/21 Status: Ordered diclofenac 1% topical gel 1 application, Topically, 4 times a day, # 100 Gm, 5 Refills, Maintenance, 12/07/22 11:37:00 EST, Gel, [facility]/pharmacy #[id number], Partial fill upon patient request if the prescription is for a schedule II opioid drug., 162.56, cm, 12/07/22 10:29:00 EST, He[place]... Start Date: 12/07/22 Status: Ordered Eucerin Plus topical lotion 1 application, Topically, 2 times a day, PRN for dry skin, # 354 mL, 0 Refills, Maintenance, 04/19/23 15:33:00 EDT, Lotion, [id number], Partial fill upon patient request if the prescription is for a schedule II opioid drug., 1 application Topi... Start Date: 04/19/23 Status: Ordered guaiFENesin 600 mg oral tablet, extended release 1 tablet = 600 mg, By Mouth, Every 12 hours, for 10 days, # 20 tablet, 0 Refills, Acute 06/04/23 10:07:00 EDT, 05/25/23 10:07:00 EDT, ER Tablet, [id number], Partial fill upon patient request if the prescription is for a schedule II opioid drug... Start Date: 05/25/23 Stop Date: 06/04/23 Status: Ordered home COVID test home COVID test, See Instructions, # 2 each, Refills 0, Tot. Refills 0, Maintenance, use as directed, 02/15/23 9:33:00 EDT, Supply, 162.56, cm, 02/15/23 9:29:00 EDT, Height, 76.5, kg, 06/12/22 13:23:00 EDT, Dry Weight Start Date: 02/15/23 Status: Ordered ketoconazole 2% topical cream 1 application, Topically, Daily, Print instructions in zambian Use only on feet, # 60 Gm, 1 Refills, Maintenance, 01/18/23 10:16:00 EDT, Cream, [id number], Partial fill upon patient request if the prescription is for a schedule II opioid drug... Start Date: 01/18/23 Status: Ordered LUBRICNT EYE JESSICA 0.4-0.3% Maintenance, 12/07/21 11:16:00 EST, via Dr Glover, tunnel heading supervisor, Supply Start Date: 12/07/21 Status: Ordered multivitamin [...] 5 Refills, Maintenance, 12/07/22 11:36:00 EST, Suspension, [facility]/pharmacy #[id number], Partial [...] cm, 02/20/23... Start Date: 02/28/23 Status: Ordered [place]-3 1000 mg oral capsule via psychiatry, 0 Refills, Maintenance, 12/07/21 11:13:00 EST, Partial fill upon patient request ifthe prescription is for a schedule II opioid drug. Start Date: 12/07/21 Status: Ordered omeprazole 40 mg oral enteric coated capsule See Instructions, JUAN RAMON DELGADO AL MONICA, # 180 capsule, 1 Refills, Maintenance, 02/25/23 7:44:00 EDT, [id number], 158, cm, 02/20/23 9:30:00 EDT, Height, 76.5, kg, 06/12/22 13:23:00 EDT, Dry Weight Start Date: 02/25/23 Status: Ordered Physical Therapy For lower back. [...] tablet = 5 mg, By Mouth, Daily, # 90 tablet, 3 Refills, Maintenance, 05/17/23 16:47:00 EDT, Tablet, [facility]/pharmacy #[id number], label in Luxembourgish, 159, cm, 05/17/23 16:29:00 EDT, Height, 73.4, kg, 05/02/23 14:49:00 EDT, Dry Weight Start Date: 05/17/23 Stop Date: 05/11/24 Status: Ordered Saline Mist 0.65% nasal spray 2 sprays, Nares, Both, 4 times a day, # 60 mL, 1 Refills, Maintenance, 02/08/23 13:50:00 EDT, [facility]/pharmacy #[id number], Partial fill upon patient request if the prescription is for a schedule II opioid drug., 2 sprays Nares, Both 4 times a day, 162.56, cm,... Start Date: 02/08/23 Status: Ordered tamsulosin 0.4 mg oral capsule See Instructions, JUAN RAMON JOAN CAPS[place]A [place], # 90 capsule, Refills 1, Maintenance, 05/15/23 13:34:00 EDT, Instructions Replace Required Details, Route to Pharmacy Electronically, [id number], 159, cm, 05/02/23 14:49:00 EDT, Height, 73.4, kg,... Start Date: 05/15/23 Status: Ordered Tears Naturale Forte preserved ophthalmic [...] Active Onychomycosis Confirmed Active *N/[facility]EC[facility]/CC-Patricia [phone]/[facility], Active Care Coordination Confirmed Active Nasal septum [...] Team Personnel Name: Trenton Eastman MD Position: [facility] Resident Member Role: PCP Address: Address: [address] [place] [id number]- Care Team Related Persons Name: AJAY BE Address: [place] [address] Name: KAMALJIT FUCHS Address: home [address] [place] [address] [address] [place] [id number]
--- OUTSIDE RECORDS SUMMARY | 2023-06-10 06:25 | XMS_ITS | Continuity of Care Document ---
Author Name Unknown Organization [facility] Address [address] [place] [address]- Care Team Providers Care Interior Mechanic Name Role Phone aRiza KRISHNA, [place] Primary Care Physician [facility]counter [facility] Date[facility]s): 07/12/22 - 09/22/22 [facility] [address] [place] [id number] Attending Physician: Not on Staff, Attending MD Allergies, Adverse Reactions, Alerts Substance Reaction Severity Status penicillins Superficial gravel r enid Itching Active Immunizations Given and Recorded Vaccine Date Status Refusal Reason SARS-CoV-2 mRNA ([id number]) vax 06/13/22 Recorded SARS-CoV-2 (COVID-19) mRNA BNT-162b2 [...] # 90 tablet, 5 Refills, [id number], 157.5, cm, 04/10/22 10:29:00 EDT, Height, 75, kg, 03/25/22 2:00:00 EDT, Dry Weight Start Date: 05/04/22 Status: Ordered Artificial Tears preserved solution 1 drops, Eyes, Both, 2 times a day, PRN for dry eyes, # 30 mL, 0 Refills, Maintenance, 09/06/22 10:24:00 EST, Solution, [facility]/pharmacy #[id number], Partial fill upon patient request if the prescription is for a schedule II opioid drug., 1 drops Eyes, Both 2 t... Start Date: 09/06/22 Status: Ordered azelastine 0.05% ophthalmic solution 1 drops, Eyes, Both, 2 times a day, PRN for allergy symptoms, For eye allergies, # 6 mL, 6 Refills,Maintenance, 02/28/22 16:27:00 EDT, [facility]/pharmacy #[id number], Label in Sri Lankan, 1 drops Eyes, Both 2 times a day,PRN:for allergy symptoms,Instr:For eye aller... Start Date: 02/28/22 Status: Ordered azelastine 137 mcg/inh (0.1%) nasal spray 0 Refills, Maintenance, 12/07/21 11:16:00 EST, via Dr Glover, intensivist Start Date: 12/07/21 Status: Ordered baclofen 10 mg oral tablet See Instructions, TOME JOAN TABLETA POR VIA ORAL KARLA VECES [place], # 63 tablet, Refills 0, Instructions Replace Required Details, Route to Pharmacy Electronically, [facility] STORE [id number], 157.5, cm, 04/10/22 10:29:00 EDT, Height, 75, [...] Maintenance, 08/28/21 14:44:00 EST, Solution, [facility]/pharmacy #[id number], Partial fill upon patient request if the prescription is for... Start Date: 08/28/21 Status: Ordered ciclopirox topical 0.77% suspension 1 application, Topically, 2 times a day, Print instructions in danish, # 60 mL, 1 Refills, Maintenance, 07/11/22 11:00:00 EDT, Suspension, [facility]/pharmacy #[id number], Partial fill upon patient request if the prescription is for a schedule II opioid drug., 1... Start Date: 07/11/22 Status: Ordered clotrimazole 1% topical cream 1 application, Topically, 2 times a day, Print instructions in danish Apply to groin area, face, and also in between digits on both feet, # 100 Gm, 0 Refills, Maintenance, 07/11/22 11:00:00 EDT, Cream, [facility]/pharmacy #[id number], Partial fill upon patient r... Start Date: 07/11/22 Status: Ordered [facility] Maintenance, 12/07/21 11:16:00 EST, via Dr Glover, intensivist, Supply Start Date: 12/07/21 Status: Ordered cyclobenzaprine 5 mg oral tablet 0 Refills, Maintenance, 09/28/21 13:55:00 EST, Partial fill upon patient request if the prescription is for a schedule II opioid drug. Start Date: 09/28/21 Status: Ordered diclofenac 3% topical gel 1 application, Topically, 2 times a day, # 100 Gm, 0 Refills, Maintenance, 04/28/21 17:22:00 EDT, Gel, [facility]/pharmacy #[id number], [...] Gm, 1 Refills, Maintenance, 11/30/21 10:55:00 EST, [place], [facility]/pharmacy #[id number], 1 sprays Nares, Both [...] Maintenance, 12/07/21 11:16:00 EST, via Dr Glover, intensivist, Supply Start Date: 12/07/21 Status: Ordered minoxidil 2% topical solution 1 mL = 0.02 Gm, Topically, 2 times a day, # 60 mL, 2 Refills, Maintenance, 02/28/22 16:27:00 EDT, Solution, [facility]/pharmacy [...] Refills, Maintenance, 09/21/21 9:33:00 EST, REC Powder, [facility], Partial fill upon patient request if the prescription is for a schedule II opioid drug., 240 mL By Mouth Every 10 minut... Start Date: 09/21/21 Status: Ordered NuLYTELY with Flavor Packs oral powder for reconstitution See Instructions, per GI office, # 4,000 mL, 0 Refills, Maintenance, 06/11/22 9:43:00 EDT, [facility]/pharmacy #[id number], Partial fill upon patient request if the prescription is for a schedule II opioid drug.,per GI office, 157.5, cm, 04/10/22 10:29:00 EDT, He... Start Date: 06/11/22 Status: Ordered [place]-3 1000 mg oral capsule via psychiatry, 0 Refills, Maintenance, 12/07/21 11:13:00 EST, Partial fill upon patient request ifthe prescription is for a schedule II opioid drug. Start Date: 12/07/21 Status: Ordered omeprazole 40 mg oral enteric coated capsule See Instructions, JUAN RAMON FRANCO CAPSULA DOS VECES [place] MON[place], # 180 capsule, 1 Refills, Maintenance, 09/05/22 10:55:00 EST, [facility] STORE [id number], 162.56, cm, 07/12/22 10:42:00 EDT, Height, 76.5, [...] mL, 4 Refills, Maintenance, 02/28/22 16:09:00 EDT, [place], [facility]/pharmacy #[id number], Partial fill upon patient request if the prescription is for a schedule II opioid drug., 1 sprays N... Start Date: 02/28/22 Status: Ordered tamsulosin 0.4 mg oral capsule 0.4 mg, 1, capsule, By Mouth, Daily, at night (print label in danish), # 30 capsule, Refills 1, Tot. Refills 1, Maintenance, 09/28/21 14:03:00 EST, Route to Pharmacy Electronically, [facility], Partial fill upon patient request if the... Start Date: 09/28/21 Status: Ordered Tears Naturale Forte preserved ophthalmic solution 1 drops, Eyes, Both, 2 times a day, PRN for dry eyes, # 30 mL, 0 Refills, Maintenance, 08/28/21 14:52:00 EST, Solution, [facility]/pharmacy #[id number], [...] 0 Refills, Maintenance, 04/28/21 17:18:00 EDT, Capsule, [facility]/pharmacy #[id number], danish labeling, 159, cm, 04/28/2115:46:00 EDT, [...] Condition Confirmation Course Effective Dates Status H ealt Status Informant Hematuria 1 Confirmed Active Chronic back pain Confirmed Active Dyslipidemia Confirmed Active Allergic rhinitis Confirmed Active Illiteracy Confirmed Active Dyspepsia Confirmed Active Disc displacement Confirmed Active Onychomycosis Confirmed Active *N/[facility]/CC-Mary a [phone]/[facility], Active Care Coordination Confirmed Active Nasal septum perforation, h/o cocaine Confirmed Active Muscle spasm Confirmed Active Tubular adenoma of colon - due 2021 2 Confirmed 11/2015 Active 1, gross 2-2014, had cystoscopy 2014 Social History Social History Type Response Smoking Status Never smoker entered on: 08/23/16 Sex Patient Care team information Care Team Personnel Name: Trenton Eastman MD Position: [facility] Resident Member Role: PCP Address: Address: [address] [place] [id number]- Care Team Related Persons Name: AJAY BE Address: [place] [address] Name: KAMALJIT FUCHS Address: home [address] [place] [address] [place] [id number]
--- OUTSIDE RECORDS SUMMARY | 2023-06-10 06:25 | XMS_ITS | Continuity of Care Document ---
Author Name Unknown Organization [facility] Address [address] [place] [address]- Care Team Providers Care Nurse Staff Industrial Name Role Phone Bebe KRISHNA, Hugh Primary Care Physician Encounter [facility] Date(s): 12/16/20 - 02/12/21 [facility] [address] [place] [address]- Encounter Diagnosis h/o allergic rhinitis(Discharge Diagnosis) - 01/13/21 Chronic back pain(Discharge Diagnosis) - 01/13/21 Attending Physician: Joe HILLS, Sonia Harris Admitting Physician: Joe HILLS, Sonia Harris Allergies, Adverse Reactions, Alerts Substance Reaction Severity [...] 11/22/20 16:52:00 EST, Route to Pharmacy Electronically, [facility]/pharmacy #[id number], label all scripts in BRITISH,... Start Date: 11/22/20 Stop Date: 11/17/21 Status: Ordered azelastine 0.05% ophthalmic solution 1 drops, Eyes, Both, 2 times a day, PRN for allergy symptoms, # 6 mL, 6 Refills, Maintenance, 01/13/21 14:54:00 EDT, [facility]/pharmacy #[id number], Label in Guinean, 1 drops Eyes, Both 2 times a day,PRN:for allergy symptoms, 159, cm, 01/04/21 9:23:00 EDT, Height... Start Date: 01/13/21 Status: Ordered diclofenac 1% topical gel 1 application, Topically, 4 times a day, not to exceed 32 grams/day, # 100 Gm, 2 Refills, Maintenance, 12/12/20 11:17:00 EST, Gel, [facility]/pharmacy #[id number], Label in Guinean please, 159, cm, 12/12/20 10:33:00 EST, Height, 74.1, kg, 10/20/20 16:18:00 EST, DrDonal.. Start Date: 12/12/20 Status: Ordered Flonase 50 mcg/inh nasal spray 1 sprays, Nares, Both, Daily, # 16 Gm, 1 Refills, Maintenance, 06/16/20 18:04:00 EDT, [place], [id number], 159, cm, 06/08/20 13:31:00 EDT, Height Start Date: 06/16/20 Status: Ordered multivitamin Multiple Vitamins oral capsule 1 capsule, By Mouth, Daily, # 90 capsule, 1 Refills, Maintenance, 02/06/21 14:59:00 EDT, Capsule, [facility]/pharmacy #[id number], 1 capsule By Mouth Daily, 159, [...] 4 Refills, Maintenance, 10/05/20 14:48:00EST, EC Capsule, [facility]/pharmacy #[id number], Partial fill upon patient request if [...] 14:32:00 EST, Route to Pharmacy Electronically, [facility]/pharmacy #[id number], 159, cm, 12/16/20 13:47:00 EST, Height, 74.1, kg, 10/20/20 16:18:00 EST, Dry Weight Start Date: 12/16/20 Status: Ordered Tylenol 8 HR Arthritis Pain 650 mg oral tablet, extended release 1 tablet = 650 mg, By Mouth, Every 8 hours, # 100 tablet, 1 Refills, Acute 12/05/21 9:00:00 EST, 12/05/20 15:26:00 EST, ER Tablet, [facility]/pharmacy #[id number], 159, cm, 07/27/20 13:20:00 EDT, Height, 74.1, kg, 10/20/20 16:18:00 EST, Dry Weight Start Date: 12/05/20 Stop Date: 12/05/21 Status: Ordered Problem List Condition Effective Dates Status Health Status Inform ant Hematuria(Confirmed) 1 Active Chronic back pain(Confirmed) Active Dyslipidemia(Confirmed) Active h/o allergic rhinitis(Confirmed) Active Illiteracy(Confirmed) Active Dyspepsia(Confirmed) Active Disc displacement(Confirmed) Active [facility]/CC-Serena Purcell-[phone]/[facility], Active Care Coordination(Confirmed) Active Tubular adenoma of colon - d ue 2021(Confirmed) 2 11/2015 Active 1, gross 2-2014, had cystoscopy 2014 Diagnosis Diagnosis Type Effective Dates Health Status Cl inical Service Informant h/o allergic rhinitis Discharge Diagnosis 01/13/21 Chronic back pain Discharge Diagnosis 01/13/21 Social History Social History Type Response Smoking Status Never smoker entered on: 08/23/16 Sex
--- OUTSIDE RECORDS SUMMARY | 2023-06-10 06:25 | XMS_ITS | Continuity of Care Document ---
Author Name Unknown Organization [facility] Address [address] [place] [address]- Care Team Providers Care Hamper Maker Name Role Phone Raiza KRISHNA, [place] Primary Care Physician Encounter [facility] [place] Date(s): 02/18/23 - 03/22/23 [facility] [address] [place] [id number] Attending Physician: Not on Staff, Attending MD [...] inactivated 1 10/12/10 Gi jocy SARS-CoV-2 mRNA ([id number]) vax 06/13/22 Recorded SARS-CoV-2 (COVID-19) mRNA BNT-162b2 vac 09/13/21 Recorded SARS-CoV-2 (COVID-19) mRNA BNT-162b2 vac 02/27/21 Given SARS-CoV-2 (COVID-19) mRNA BNT-162b2 vac 02/06/21 Given tetanus-diphtheria toxoids (Td) 11/23/20 Given tetanus/diphtheria/pertussis, acel(Tdap) 2 10/12/10 Given 1Admin Note: VIS given 05/30/10, Burmese form 2Admin Note: VIS given, 08/2008, Burmese form Medications amLODIPine 5 mg oral tablet 5 mg, 1, tablet, By Mouth, Daily, # 90 tablet, Refills 3, Tot. Refills 3, Maintenance, 11/01/22 9:44:00 EST, Route to Pharmacy Electronically, [facility]/pharmacy #[id number], Partial fill upon patient request ifthe prescription is for a schedule II opioid drug.,... Start Date: 11/01/22 Status: Ordered Artificial Tears preserved solution 1 drops, Eyes, Both, 2 times a day, PRN for dry eyes, # 30 mL, 2 Refills, Maintenance, 02/04/23 9:35:00 EDT, Solution, [facility]/pharmacy #[id number], Partial fill upon patient request if the prescription is fora schedule II opioid drug., 1 drops Eyes, Both 2 ti... Start Date: 02/04/23 Status: Ordered Ativan 0.5 mg oral tablet 1 tablet = 0.5 mg, By Mouth, Once, belarusian label, take 30 mins to 1 hr before flight, # 2 tablet, 0Refills, Soft Stop, 10/08/22 17:54:00 EST, Tablet, [facility]/pharmacy #[id number], Partial fill upon patient request if the prescription is for a schedule II opioi... Start Date: 10/08/22 Status: Ordered atorvastatin 40 mg oral tablet 1 tablet = 40 mg, By Mouth, Daily, # 30 tablet, 5 Refills, Maintenance, 12/19/22 14:49:00 EST, Tablet, [facility], Partial fill upon patient request if the prescription is for a schedule II opioid drug., 162.56, cm, 12/19/22 14:01:00 E... Start Date: 12/19/22 Status: Ordered azelastine 137 mcg/inh (0.1%) nasal spray 0 Refills, Maintenance, 12/07/21 11:16:00 EST, via Dr Glover, director of development Start Date: 12/07/21 Status: Ordered baclofen 10 mg oral tablet See Instructions, TOME JOAN TABLETA POR VIA ORAL KARLA VECES AL OMNICA, # 63 tablet, Refills 0, Instructions Replace Required Details, Route to Pharmacy Electronically, [id number], 157.5, cm, 04/10/22 10:29:00 EDT, Height, 75, [...] 2 times a day, Print instructions in belarusian use only for toenails, # 60 mL, 1 Refills, Maintenance, 01/18/23 10:15:00 EDT, Suspension, [facility]/pharmacy #[id number], Partial fill uponpatient request if the prescription is for a sched... Start Date: 01/18/23 Status: Ordered [facility] Maintenance, 12/07/21 11:16:00 EST, via Dr Glover, director of development, Supply Start Date: 12/07/21 Status: Ordered diclofenac 1% topical gel 1 application, Topically, 4 times a day, # 100 Gm, 5 Refills, Maintenance, 12/07/22 11:37:00 EST, Gel, [facility]/pharmacy #[id number], Partial fill upon patient request if the prescription is for a schedule II opioid drug., 162.56, cm, 12/07/22 10:29:00 EST, [place]... Start Date: 12/07/22 Status: Ordered famotidine 40 mg oral tablet 1 tablet = 40 mg, By Mouth, 2 times a day, take 2x/day for 2 weeks then decrease to daily, # 60 tablet, 2 Refills, Maintenance, 06/24/22 12:04:00 EDT, Tablet, [facility]/pharmacy #[id number], Partial fill upon patient request if [...] 1 application, Topically, Daily, Print instructions in belarusian Use only on feet, # 60 Gm, 1 Refills, Maintenance, 01/18/23 10:16:00 EDT, Cream, [facility]/pharmacy #[id number], Partial fill upon patient request if the prescription is for a schedule II opioid drug... Start Date: 01/18/23 Status: Ordered loratadine 10 mg oral tablet 10 mg, 1, tablet, By Mouth, Daily, # 30 tablet, Refills 5, Tot. Refills 5, Maintenance, 12/18/21 10:54:00 EST, Route to Pharmacy Electronically, [facility]/pharmacy #[id number], Partial fill upon patient request if the prescription is for a schedule II opioid drug... Start Date: 12/18/21 Status: Ordered LUBRICNT EYE JESSICA 0.4-0.3% Maintenance, 12/07/21 11:16:00 EST, via Dr Glover, director of development, Supply Start Date: 12/07/21 Status: Ordered minoxidil [...] II opioid drug., Use as instructed on box, 158, cm, 02/20/23... Start Date: 02/28/23 Status: Ordered NuLYTELY with Flavor Packs oral powder for reconstitution See Instructions, per GI office, # 4,000 mL, 0 Refills, Maintenance, 06/11/22 9:43:00 EDT, [id number], Partial fill upon patient request if the prescription is for a schedule II opioid drug.,per GI office, 157.5, cm, 04/10/22 10:29:00 EDT, He... Start Date: 06/11/22 Status: Ordered [place]-3 1000 mg oral capsule via psychiatry, 0 Refills, Maintenance, 12/07/21 11:13:00 EST, Partial fill upon patient request ifthe prescription is for a schedule II opioid drug. Start Date: 12/07/21 Status: Ordered omeprazole 40 mg oral enteric coated capsule See Instructions, JUAN RAMON ROJASES AL MONICA, # 180 capsule, 1 Refills, Maintenance, 02/25/23 7:44:00 EDT, [id number], 158, cm, 02/20/23 9:30:00 EDT, Height, 76.5, kg, 06/12/22 13:23:00 EDT, Dry Weight Start Date: 02/25/23 Status: Ordered Lynette-Colace 50 mg-8.6 mg oral tablet 2 tablet, By Mouth, Daily at bedtime, PRN Constipation, For constipation, # 60 tablet, 0 Refills, Maintenance, 01/02/22 20:52:00 EDT, Tablet, [facility]/pharmacy #[id number], Partial fill upon patient request if [...] 11 Refills, Maintenance, 01/14/23 15:27:00 EDT, Tablet, [facility]/pharmacy #[id number], label in Burmese, 162.56,cm, 01/14/23 15:01:00 EDT, Height, 76.5, kg, [...] mL, 4 Refills, Maintenance, 02/28/22 16:09:00 EDT, [place], [id number], Partial fill upon patient request if the prescription is for a schedule II opioid drug., 1 sprays N... Start Date: 02/28/22 Status: Ordered Tears Naturale Forte preserved ophthalmic solution 1 drops, Eyes, Both, 2 times a day, PRN for dry eyes, # 30 mL, 0 Refills, Maintenance, 11/30/22 11:37:00 EST, Solution, [id number], Partial fill upon patient request if the [...] class I Confirmed Active Onychomycosis Confirmed Active *N/[facility]/CC-Patricia [phone]/[facility], Active Care Coordination Confirmed Active Nasal septum perforation, h/o cocaine Confirmed Active Prediabetes Confirmed Active Muscle spasm Confirmed Active Tubular adenoma of colon - due 2021 2 Confirmed 11/2015 Active 1, gross 2-2014, had cystoscopy 2014 Social History Social History Type Response Smoking Status Never smoker entered on: 08/23/16 Sex Patient Care team information Care Team Personnel Name: rTenton Eastman MD Position: [facility] Resident Member Role: PCP Address: Address: [address] [place] [id number]- Care Team Related Persons Name: AJAY BE Address: [place] [address] Name: KAMALJIT FUCHS Address: home [address] [place] [address] [place] [id number]
--- OUTSIDE RECORDS SUMMARY | 2023-06-10 06:25 | XMS_ITS | Continuity of Care Document ---
Author Name Unknown Organization [facility] Address [address] [place] [address]- Care Team Providers Care Security Guard Supervisor Name Role Phone Raiza KRISHNA, [place] Primary Care Physician [phone] Encounter [facility] Date(s): 12/17/22 - 01/16/23 [facility] [address] [place] [id number] Allergies, Adverse Reactions, Alerts [...] inactivated 1 10/12/10 Gi jocy SARS-CoV-2 mRNA ([id number]-wadb-gxlek) vax 06/13/22 Recorded SARS-CoV-2 (COVID-19) mRNA BNT-162b2 vac 09/13/21 Recorded SARS-CoV-2 (COVID-19) mRNA BNT-162b2 vac 02/27/21 Given SARS-CoV-2 (COVID-19) mRNA BNT-162b2 vac 02/06/21 Given tetanus-diphtheria toxoids (Td) 11/23/20 Given tetanus/diphtheria/pertussis, acel(Tdap) 2 10/12/10 Given 1Admin Note: VIS given 05/30/10, Argentine form 2Admin Note: VIS given, 08/2008, Argentine form Medications amLODIPine 5 mg oral tablet 5 mg, 1, tablet, By Mouth, Daily, # 90 tablet, Refills 3, Tot. Refills 3, Maintenance, 11/01/22 9:44:00 EST, [id number] Partial fill upon patient request ifthe prescription is for a schedule II opioid drug.,... Start Date: 11/01/22 Status: Ordered Artificial Tears preserved solution 1 drops, Eyes, Both, 2 times a day, PRN for dry eyes, # 30 mL, 0 Refills, Maintenance, 11/29/22 17:50:00 EST, Solution[id number] Partial fill upon patient request if the prescription is for a schedule II opioid drug., 1 drops Eyes, Both 2 t... Start Date: 11/29/22 Status: Ordered Ativan 0.5 mg oral tablet 1 tablet = 0.5 mg, By Mouth, Once, sammarinese label, take 30 mins to 1 hr before flight, # 2 tablet, 0Refills, Soft Stop, 10/08/22 17:54:00 EST, Tablet[id number] Partial fill upon patient request [...] Maintenance, 12/07/21 11:16:00 EST, via Dr Glover, radiological engineer Start Date: 12/07/21 Status: Ordered baclofen 10 mg oral tablet See Instructions, TOME JOAN TABLETA POR VIA ORAL KARLA VECES AL MONICA, # 63 tablet, Refills 0, Instructions Replace Required Details, Route to Pharmacy Electronically, [id number], 157.5, cm, 04/10/22 10:29:00 EDT, Height, 75, [...] 2 times a day, Print instructions in sammarinese, # 60 mL, 1 Refills, Maintenance, 07/11/22 11:00:00 EDT, Suspension, [facility]/pharmacy #[id number], Partial fill upon patient request if the prescription is for a schedule II opioid drug., 1... Start Date: 07/11/22 Status: Ordered clotrimazole 1% topical cream 1 application, Topically, 2 times a day, Usar dos veces al monica Use 2x times a day, # 24 Gm, 0 Refills, Acute 01/18/23 23:00:00 EDT, 01/11/23 14:58:00 EDT, Cream, [facility], Partial fill upon patient request if the prescription is for... Start Date: 01/11/23 Stop Date: 01/18/23 Status: Ordered [facility] Maintenance, 12/07/21 11:16:00 EST, via Dr Glover, radiological engineer, Supply Start Date: 12/07/21 Status: Ordered diclofenac 1% topical gel 1 application, Topically, 4 times a day, # 100 Gm, 5 Refills, Maintenance, 12/07/22 11:37:00 EST, Gel, [facility]/pharmacy #[id number], Partial fill upon patient request [...] Refills, Maintenance, 06/24/22 12:04:00 EDT, Tablet, [facility]/pharmacy #[id number], Partial fill upon patient request [...] Maintenance, 12/07/21 11:16:00 EST, via Dr Glover, radiological engineer, Supply Start Date: 12/07/21 Status: Ordered [...] EDT, He... Start Date: 06/11/22 Status: Ordered [place]-3 1000 mg oral capsule via psychiatry, 0 Refills, Maintenance, 12/07/21 11:13:00 EST, Partial fill upon patient request ifthe prescription is for a schedule II opioid drug. Start Date: 12/07/21 Status: Ordered omeprazole 40 mg oral enteric coated capsule See Instructions, JUAN RAMON ARTA DOS VECES AL MONICA, # 180 capsule, 1 Refills, Maintenance, 09/05/22 10:55:00 EST, [facility], 162.56, cm, 07/12/22 10:42:00 EDT, Height, 76.5, [...] 15:27:00 EDT, Tablet, [id number], label in Argentine, 162.56,cm, 01/14/23 15:01:00 EDT, Height, 76.5, kg, ... Start Date: 01/14/23 Stop Date: 12/29/25 Status: Ordered Saline Mist 0.65% nasal spray 2 sprays, Nares, Both, 4 times a day, # 60 mL, 0 Refills, Maintenance, 11/30/22 11:37:00 EST, [facility]/pharmacy #[id number], Partial fill upon patient request if the prescription is for a schedule II opioid drug., 2 sprays Nares, Both 4 times a day, 162.56, cm,... Start Date: 11/30/22 Status: Ordered Simply Saline 0.9% spray 1 sprays, Nares, Both, Every 30 minutes, PRN for dry nasal passages, # 45 mL, 4 Refills, Maintenance, 02/28/22 16:09:00 EDT, [place], [facility]/pharmacy #[id number], Partial fill upon patient request if the prescription is for a schedule II opioid drug., 1 sprays N... Start Date: 02/28/22 Status: Ordered Tears Naturale Forte preserved ophthalmic solution 1 drops, Eyes, Both, 2 times a day, PRN for dry eyes, # 30 mL, 0 Refills, Maintenance, 11/30/22 11:37:00 EST, Solution, [facility]/pharmacy #[id number], Partial fill upon patient request [...] displacement Confirmed Active Onychomycosis Confirmed Active *[facility]/CC-Patricia [phone]/[facility], Active Care Coordination Confirmed Active Nasal septum [...] NORTH Resident Member Role: PCP Address: Address: [address] [place] [address] [place] [address]- Care Team Related Persons Name: AJAY BE Address: [place] [address] Name: KAMALJIT FUCHS Address: home [address] [place] [address] [place] [id number]
--- OUTSIDE RECORDS SUMMARY | 2023-06-10 06:25 | XMS_ITS | Continuity of Care Document ---
Author Name Unknown Organization [facility] Address [address] [place] [address]- Care Team Providers Care Licensed Journeyman Electrician Name Role Phone [place] Eastman MD Primary Care Physician [place] [facility] [place] 02/10/23 [facility] [address] [place] [id number] Allergies, Adverse Reactions, Alerts [...] inactivated 1 10/12/10 Gi jocy SARS-CoV-2 mRNA (tvhpxxy-vqcu-wkjjw) vax 06/13/22 Recorded SARS-CoV-2 (COVID-19) mRNA BNT-162b2 [...] 11/01/22 9:44:00 EST, [id number] Partial fill upon patient request ifthe prescription is for a schedule II opioid drug.,... Start Date: 11/01/22 Status: Ordered Artificial Tears preserved solution 1 drops, Eyes, Both, 2 times a day, PRN for dry eyes, # 30 mL, 2 Refills, Maintenance, 02/04/23 9:35:00 EDT, Solution, [id number] Partial fill upon patient request if the prescription is fora schedule II opioid drug., 1 drops Eyes, Both 2 ti... Start Date: 02/04/23 Status: Ordered Ativan 0.5 mg oral tablet 1 tablet = 0.5 mg, By Mouth, Once, jordanian label, take 30 mins to 1 hr before flight, # 2 tablet, 0Refills, Soft Stop, 10/08/22 17:54:00 EST, Tablet, [id number] Partial fill upon patient request if the prescription is for a schedule II opioi... Start Date: 10/08/22 Status: Ordered atorvastatin 40 mg oral tablet 1 tablet = 40 mg, By Mouth, Daily, # 30 tablet, 5 Refills, Maintenance, 12/19/22 14:49:00 EST, Tablet, [facility], Partial fill upon patient request if the prescription is for a schedule II opioid drug., 162.56, cm, 12/19/22 14:01:00 E... Start Date: 12/19/22 Status: Ordered azelastine 137 mcg/inh (0.1%) nasal spray 0 Refills, Maintenance, 12/07/21 11:16:00 EST, via Dr Glover, mechanical cad drafter Start Date: 12/07/21 Status: Ordered baclofen 10 mg oral tablet See Instructions, TOME JOAN TABLETA POR VIA ORAL KARLA VECES AL MONICA, # 63 tablet, Refills 0, Instructions Replace Required Details, Route to Pharmacy Electronically, [id number], 157.5, cm, 04/10/22 10:29:00 EDT, Height, 75, [...] 2 times a day, Print instructions in jordanian use only for toenails, # 60 mL, 1 Refills, Maintenance, 01/18/23 10:15:00 EDT, Suspension, [facility]/pharmacy #[id number], Partial fill uponpatient request if the prescription is for a sched... Start Date: 01/18/23 Status: Ordered [facility] Maintenance, 12/07/21 11:16:00 EST, via Dr Glover, mechanical cad drafter, Supply Start Date: 12/07/21 Status: Ordered diclofenac 1% topical gel 1 application, Topically, 4 times a day, # 100 Gm, 5 Refills, Maintenance, 12/07/22 11:37:00 EST, Gel, [facility]/pharmacy #[id number], Partial [...] Refills, Maintenance, 06/24/22 12:04:00 EDT, Tablet, [facility]/pharmacy #[id number], Partial fill upon patient request if the prescription is for a schedule... Start Date: 06/24/22 Stop Date: 09/22/22 Status: Ordered Flomax 0.4 mg oral capsule 0.4 mg, 1, capsule, By Mouth, Daily, # 30 capsule, Refills 5, Tot. Refills 5, Maintenance, 11/07/2310:08:00 EST, Route to Pharmacy Electronically, [facility]/pharmacy #[id number], Partial fill upon patient request if the prescription is for a schedule II opioid d... Start Date: 11/07/22 Status: Ordered ketoconazole 2% topical cream 1 application, Topically, Daily, Print instructions in jordanian Use only on feet, # 60 Gm, 1 Refills, Maintenance, 01/18/23 10:16:00 EDT, Cream, [facility]/pharmacy #[id number], Partial [...] Maintenance, 12/07/21 11:16:00 EST, via Dr Glover, mechanical cad drafter, Supply Start Date: 12/07/21 Status: Ordered minoxidil 2% topical solution 1 mL = 0.02 Gm, Topically, 2 times a day, # 60 mL, 2 Refills, Maintenance, 02/28/22 16:27:00 EDT, Solution, [facility]/pharmacy #[id number], Partial [...] EDT, He... Start Date: 06/11/22 Status: Ordered [place]-3 1000 mg oral capsule via psychiatry, 0 Refills, Maintenance, 12/07/21 11:13:00 EST, Partial fill upon patient request ifthe prescription is for a schedule II opioid drug. Start Date: 12/07/21 Status: Ordered omeprazole 40 mg oral enteric coated capsule See Instructions, JUAN RAMON FRANCO CAPSULA DOS VECES AL MONICA, # 180 capsule, 1 Refills, Maintenance, 09/05/22 10:55:00 EST, [id number], 162.56, cm, 07/12/22 10:42:00 EDT, Height, 76.5, [...] 15:27:00 EDT, Tablet, [id number], label in Hong Konger, 162.56,cm, 01/14/23 [...] mL, 4 Refills, Maintenance, 02/28/22 16:09:00 EDT, [place], [id number], Partial fill upon patient request [...] Disc displacement Confirmed Active Onychomycosis Confirmed Active [facility]CCValerie [phone]/[facility], Active Care Coordination Confirmed Active [...] Personnel Name: Raiza KRISHNA, [place] Position: [facility] Resident Member Role: PCP Address: Address: [address] [place] [address] [place] [address]- Care Team Related Persons Name: AJAY BE Address: [place] [address] Name: KAMALJIT FUCHS Address: home [address] [place] [address] [place] [id number]
--- OUTSIDE RECORDS SUMMARY | 2023-06-10 06:25 | XMS_ITS | Continuity of Care Document ---
Author Name Unknown Organization [facility] Address [address] [place] [address]- Care Team Providers Care Graphics Manager Name Role Phone Raiza KRISHNA, [place] Primary Care Physician [phone] [facility]counter [facility] Date(s): 05/28/22 - 06/27/22 [facility] [address] [place] [id number] Allergies, Adverse Reactions, Alerts Substance Reaction Severity Status penicillins Superficial gravel r enid Itching Active Immunizations Given and Recorded Vaccine Date Status Refusal Reason SARS-CoV-2 mRNA (munheyd-[id number]) vax 06/13/22 Recorded SARS-CoV-2 (COVID-19) mRNA BNT-162b2 [...] DOSE INSTEAD., # 90 tablet, 5 Refills, [id number], 157.5, cm, 04/10/22 10:29:00 EDT, Height, 75, kg, 03/25/22 2:00:00 EDT, Dry Weight Start Date: 05/04/22 Status: Ordered azelastine 0.05% ophthalmic solution 1 drops, Eyes, Both, 2 times a day, PRN for allergy symptoms, For eye allergies, # 6 mL, 6 Refills,Maintenance, 02/28/22 16:27:00 EDT, [id number], Label in [place] Islander, 1 drops Eyes, Both 2 times a day,PRN:for allergy symptoms,Instr:For eye aller... Start Date: 02/28/22 Status: Ordered azelastine 137 mcg/inh (0.1%) nasal spray 0 Refills, Maintenance, 12/07/21 11:16:00 EST, via Dr Glover, chief medical technologist Start Date: 12/07/21 Status: Ordered baclofen 10 mg oral tablet See Instructions, JUAN RAMON JOAN TABLETA POR VIA ORAL KARLA VECES AL MONICA, # 63 tablet, Refills 0, Instructions Replace Required Details, Route to Pharmacy Electronically, [id number], 157.5, cm, 04/10/22 10:29:00 EDT, Height, 75, [...] Refills, Maintenance, 08/28/21 14:44:00 EST, Solution, [facility]/pharmacy #[id number], Partial fill upon patient request if the prescription is for... Start Date: 08/28/21 Status: Ordered clotrimazole 1% topical cream 1 application, Topically, 2 times a day, for 14 days, # 60 Gm, 1 Refills, Acute 07/11/22 11:08:00 EDT, 06/13/22 11:08:00 EDT, Cream, [facility]/pharmacy #[id number], Partial fill upon patient request if the prescription is for a schedule II opioid drug., 1 applica... Start Date: 06/13/22 Stop Date: 07/11/22 Status: Ordered [facility]OPS Maintenance, 12/07/21 11:16:00 EST, via Dr Glover, chief medical technologist, Supply Start Date: 12/07/21 Status: Ordered cyclobenzaprine 5 mg oral tablet 0 Refills, Maintenance, 09/28/21 13:55:00 EST, Partial fill upon patient request if the prescription is for a schedule II opioid drug. Start Date: 09/28/21 Status: Ordered diclofenac 3% topical gel 1 application, Topically, 2 times a day, # 100 Gm, 0 Refills, Maintenance, 04/28/21 17:22:00 EDT, Gel, [facility]/pharmacy #[id number], Partial fill upon patient request [...] Maintenance, 06/24/22 12:04:00 EDT, Tablet, [facility]/pharmacy #[id number], Partial fill upon patient request if the prescription is for a schedule... Start Date: 06/24/22 Stop Date: 09/22/22 Status: Ordered Flonase 50 mcg/inh nasal spray 1 sprays, Nares, Both, Daily, # 16 Gm, 1 Refills, Maintenance, 11/30/21 10:55:00 EST, [place], [facility]/pharmacy #[id number], 1 sprays Nares, Both Daily, 159, cm, 11/30/21 9:50:00 EST, Height, 78, kg, 01/01/21 16:06:00 EDT, Dry Weight Start Date: 11/30/21 Status: Ordered loratadine 10 mg oral tablet 10 mg, 1, tablet, By Mouth, Daily, # 30 tablet, Refills 5, Tot. Refills 5, Maintenance, 12/18/21 10:54:00 EST, Route to Pharmacy Electronically, [facility]/pharmacy #[id number], Partial fill upon patient request if the prescription is for a schedule II opioid drug... Start Date: 12/18/21 Status: Ordered LUBRICNT EYE JESSICA 0.4-0.3% Maintenance, 12/07/21 11:16:00 EST, via Dr Glover, chief medical technologist, Supply Start Date: 12/07/21 Status: Ordered minoxidil 2% topical solution 1 mL = 0.02 Gm, Topically, 2 times a day, # 60 mL, 2 Refills, Maintenance, 02/28/22 16:27:00 EDT, Solution, [facility]/pharmacy #[id number], Partial fill upon patient request if the prescription is for a scheduleII opioid drug., 1 mL Topically 2 times a day, 159,... Start Date: 02/28/22 Status: Ordered multivitamin Multiple Vitamins oral capsule 1 capsule, By Mouth, Daily, # 90 capsule, 1 Refills, Maintenance, 03/22/22 15:18:00 EDT, Capsule, [facility]/pharmacy #[id number], 1 capsule By Mouth Daily, 159, cm, 03/22/22 10:39:00 EDT, Height, 78, kg, 01/01/21 16:06:00 EDT, Dry Weight Start Date: 03/22/22 Status: Ordered NuLYTELY with Flavor Packs oral powder for reconstitution 240 mL, By Mouth, Every 10 minutes, # 1 each, 0 Refills, Maintenance, 09/21/21 9:33:00 EST, REC Powder, [facility], Partial fill upon patient request if the prescription is for a schedule II opioid drug., 240 mL By Mouth Every 10 minut... Start Date: 09/21/21 Status: Ordered NuLYTELY with Flavor Packs oral powder for reconstitution See Instructions, per GI office, # 4,000 mL, 0 Refills, Maintenance, 06/11/22 9:43:00 EDT, [facility]/pharmacy #[id number], Partial fill upon patient request if the prescription is for a schedule II opioid drug.,per GI office, 157.5, cm, 04/10/22 10:29:00 EDT, He... Start Date: 06/11/22 Status: Ordered Pelsor-3 1000 mg oral capsule via psychiatry, 0 Refills, Maintenance, 12/07/21 11:13:00 EST, Partial fill upon patient request ifthe prescription is for a schedule II opioid drug. Start Date: 12/07/21 Status: Ordered omeprazole 40 mg oral enteric coated capsule 1 capsule = 40 mg, By Mouth, 2 times a day, # 60 capsule, 2 Refills, Maintenance, 06/11/22 8:55:00 EDT, EC Capsule, [facility]/pharmacy #[id number], Partial fill upon patient request if the prescription is for a schedule II opioid drug., 157.5, cm, 04/10/22 10:29:... Start Date: 06/11/22 Stop Date: 09/09/22 Status: Ordered Lynette-Colace 50 mg-8.6 mg oral tablet 2 tablet, By Mouth, Daily at bedtime, PRN Constipation, For constipation, # 60 tablet, 0 Refills, Maintenance, 01/02/22 20:52:00 EDT, Tablet, [facility]/pharmacy #[id number], Partial fill upon patient request [...] mL, 4 Refills, Maintenance, 02/28/22 16:09:00 EDT, [place], [facility]/pharmacy #[id number], Partial fill upon patient request if the prescription is for a schedule II opioid drug., 1 sprays N... Start Date: 02/28/22 Status: Ordered tamsulosin 0.4 mg oral capsule 0.4 mg, 1, capsule, By Mouth, Daily, at night (print label in equatorial guinean), # 30 capsule, Refills 1, Tot. Refills 1, Maintenance, 09/28/21 14:03:00 EST, Route to Pharmacy Electronically, [facility], Partial fill upon patient request if the... Start Date: 09/28/21 Status: Ordered Tears Naturale Forte preserved ophthalmic solution 1 drops, Eyes, Both, 2 times a day, PRN for dry eyes, # 30 mL, 0 Refills, Maintenance, 08/28/21 14:52:00 EST, Solution, [facility]/pharmacy #[id number], Partial fill upon patient request if the prescription is for a schedule II opioid drug., 1 drops Eyes, Both 2 t... Start Date: 08/28/21 Status: Ordered tiZANidine 2 mg oral capsule 1 capsule = 2 mg, By Mouth, 3 times a day, PRN as needed for muscle spasm, # 9 capsule, 0 Refills, Maintenance, 04/28/21 17:18:00 EDT, Capsule, [facility]/pharmacy #[id number], equatorial guinean labeling, 159, cm, 04/28/2115:46:00 EDT, Height, 78, kg, 01/01/21 16:06:00 EDT... Start Date: 04/28/21 Stop Date: 05/01/21 Status: Ordered Tums 500 mg oral tablet, chewable 500 mg, 1, tablet, Chew, 2 times a day, # 60 tablet, Refills 5, Tot. Refills 5, Maintenance, 12/16/20 14:32:00 EST, Route to Pharmacy Electronically, [facility]/pharmacy #[id number], 159, cm, 12/16/20 13:47:00 EST, [...] Dyspepsia(Confirmed) Active Disc displacement(Confirmed) Active Onychomycosis(Confirmed) Active *[facility]/Valerie [phone]/[facility], Active Care Coordination(Confirmed) Active Nasal septum perforation, h/ o cocaine(Confirmed) Active Muscle spasm(Confirmed) Active Tubular adenoma of colon - d ue 2021(Confirmed) 2 11/2015 Active 1, gross 2-2014, had cystoscopy 2014 Social History Social History Type Response Smoking Status Never smoker entered on: 08/23/16 Sex Care Team Personnel Name: Trenton Eastman MD Address: [address] [place] [address]
--- OUTSIDE RECORDS SUMMARY | 2023-06-10 06:25 | XMS_ITS | Continuity of Care Document ---
Author Name Unknown Organization [facility] Address [address] [place] [address]- Care Team Providers Care Director Of Institutional Giving Name Role Phone Bebe KRISHNA, Hugh Primary Care Physician Encounter [facility] Date(s): 06/24/20 - 07/24/20 [facility] [address] [place] [address]- [facility] Allergies, Adverse Reactions, Alerts Substance Reaction Severity Status penicillins Active Immunizations Given and Recorded Vaccine Date Status Refusal Reason influenza virus vaccine, inactivated 12/21/19 Give n influenza virus vaccine, inactivated 07/15/19 Give n influenza virus vaccine, inactivated 1 10/12/10 Gi jocy tetanus/diphtheria/pertussis, acel(Tdap) 2 10/12/10 Given 1Admin Note: VIS given 05/30/10, Micronesian form 2Admin Note: VIS given, 08/2008, Micronesian form Medications amLODIPine 5 mg oral tablet [...] 0 Refills, Maintenance, 10/19/19 14:27:00 EST, Solution, [facility], 1 drops Eyes, Both 2 [...] Gm, 1 Refills, Maintenance, 06/16/20 18:04:00 EDT, [place], [facility]/pharmacy #[id number], 1 sprays [...] 1 Refills, Maintenance, 10/19/19 14:27:00 EST, Suspension, [facility], 20 mL By Mouth 4 [...] 2 mg oral capsule via Syl Riley [facility], 0 Refills, Maintenance, 11/04/19 14:42:00 EST Start Date: 11/04/19 Status: Ordered QUEtiapine 200 mg oral tablet via Syl Riley, Psychiatry, Refills 0, Maintenance, 11/04/19 14:42:00 EST Start Date: 11/04/19 Status: Ordered Tums 500 mg oral tablet, chewable 500 mg, 1, tablet, Chew, 2 times a day, # 60 tablet, Refills 3, Tot. Refills 3, Maintenance, 01/14/20 11:08:00 EDT, Route to Pharmacy Electronically, [facility], 159, cm, 12/21/19 13:52:00 EST, Height Start Date: 01/14/20 Status: Ordered Problem List Condition Effective Dates Status Health Status Inform ant Hematuria(Confirmed) 1 Active Chronic back pain(Confirmed) Active Depression(Confirmed) Active Dyslipidemia(Confirmed) Active h/o allergic rhinitis(Confirmed) Active Illiteracy(Confirmed) Active Dyspepsia(Confirmed) Active Disc displacement(Confirmed) Active *[facility], [facility], (Confirmed) 08/06/18 Active [facility]-[phone]/[facility], Active Care Coordination(Confirmed) Active Tubular adenoma of colon - d ue 2021(Confirmed) 2 11/2015 Active lul Vick 2-2014, had cystoscopy 2014 Social History Social History Type Response Smoking Status Never smoker entered on: 08/23/16 Sex
--- OUTSIDE RECORDS SUMMARY | 2023-06-10 06:25 | XMS_ITS | Continuity of Care Document ---
Author Name Unknown Organization [facility] Address [address] [place] [address]- Care Team Providers Care Linter Operator Name Role Phone Trenton Eastman MD Primary Care Physician [phone] Encounter [facility] Date(s): 08/24/21 - 09/24/21 [facility] [address] [place], [place] [address] Attending Physician: Lloyd Santiago MD Admitting [...] 10/12/10 Given 1Admin Note: VIS given 05/30/10, Lithuanian form 2Admin Note: VIS given, 08/2008, Lithuanian form Medications amLODIPine 2.5 mg oral tablet 2.5 mg, 1, tablet, By Mouth, Daily, ; STOP amlodipine 5 mg. use this dose instead., # 30 tablet, Refills 11, Tot. Refills 11, Maintenance, 11/22/20 16:52:00 EST, [facility], [id number], label all scripts in [place],... Start Date: 11/22/20 Stop Date: 11/17/21 Status: Ordered azelastine 0.05% ophthalmic solution 1 drops, Eyes, Both, 2 times a day, PRN for allergy symptoms, # 6 mL, 6 Refills, Maintenance, 01/13/21 14:54:00 EDT, [facility]/pharmacy #[id number], Label in Lithuanian, 1 drops Eyes, Both 2 times a [...] 10/03/21 9:49:00 EST, 09/19/21 9:49:00 EST, [place], [facility]/pharmacy #[id number], Partial fill upon [...] Gm, 1 Refills, Maintenance, 06/16/20 18:04:00 EDT, [place], [facility]/pharmacy #[id number], 159, cm, 06/08/20 13:31:00 EDT, Height Start Date: 06/16/20 Status: Ordered multivitamin Multiple Vitamins oral capsule 1 capsule, By Mouth, Daily, # 90 capsule, 1 Refills, Maintenance, 02/06/21 14:59:00 EDT, Capsule, [facility]/pharmacy #[id number], 1 capsule By Mouth Daily, 159, cm, 01/04/21 9:23:00 EDT, Height, 78, kg, 01/02/2116:06:00 EDT, Dry Weight Start Date: 02/06/21 Status: Ordered NuLYTELY with Flavor Packs oral powder for reconstitution 240 mL, By Mouth, Every 10 minutes, # 1 each, 0 Refills, Maintenance, 09/21/21 9:33:00 EST, [facility] Powder[facility] Partial fill upon patient request if the prescription is for a schedule II opioid drug., 240 mL By Mouth Every 10 minut... Start Date: 09/21/21 Status: Ordered omeprazole 40 mg oral enteric coated capsule 1 capsule = 40 mg, By Mouth, 2 times a day, # 60 capsule, 2 Refills, Maintenance, 04/13/21 10:31:00EDT, EC Capsule, [facility]/pharmacy #[id number], Partial fill upon [...] tablet, By Mouth, Daily in AM, via PsychaitrySyl, Refills 0, Maintenance, 11/22/20 16:15:00 EST, Partial [...] Mouth, Daily, at night (print label in [place] islander), # 30 capsule, Refills 1, Tot. Refills 1, Maintenance, 09/13/21 18:28:00 EST, [facility]ically, [facility] [...] 17:18:00 EDT, Capsule, [facility]/pharmacy #[id number], [place] islander labeling, 159, cm, 04/28/2115:46:00 EDT, Height, 78, [...] Active Disc displacement(Confirmed) Active Onychomycosis(Confirmed) Active *[facility]-Patricia [phone]/[facility], Active Care Coordination(Confirmed) Active Muscle spasm(Confirmed) Active Tubular adenoma of colon - d ue 2021(Confirmed) 2 11/2015 Active lul Vick 2-2014, had cystoscopy 2014 Social History Social History Type Response Smoking Status Never smoker entered on: 08/23/16 Sex
--- OUTSIDE RECORDS SUMMARY | 2023-06-10 06:25 | XMS_ITS | Continuity of Care Document ---
Author Name Unknown Organization [facility] Address [address] [place] [address]- Care Team Providers Care Architecture Analyst Name Role Phone Samuel Ogden MD Primary Care Physician [facility]counter [facility] Date(s): 03/18/20 - 04/17/20 [facility] [address] [place] [address]- [facility] Attending Physician: Viky Garcia Admitting Physician: AdmtrViky Referring Physician: Admtr, ArJasson Allergies, Adverse Reactions, Alerts Substance Reaction Severity Status penicillins Active Immunizations Given and Recorded Vaccine Date Status Refusal Reason influenza virus vaccine, inactivated 12/21/19 Give n influenza virus vaccine, inactivated 07/15/19 Give n influenza virus vaccine, inactivated 1 10/12/10 Gi jocy tetanus/diphtheria/pertussis, acel(Tdap) 2 10/12/10 Given 1Admin Note: VIS given 05/30/10, Belarusian form 2Admin Note: VIS given, 08/2008, Belarusian form Medications Artificial Tears preserved solution 1 drops, Eyes, Both, 2 times a day, PRN for dry eyes, # 10 mL, 0 Refills, Maintenance, 10/19/19 14:27:00 EST, [facility], 1 drops Eyes, Both 2 times a day,PRN:for dry eyes, 159, cm, 10/19/19 13:35:00 EST, Height Start Date: 10/19/19 Status: Ordered loratadine 10 mg oral tablet 10 mg, 1, tablet, By Mouth, Daily, # 30 tablet, Refills 2, Tot. Refills 2, Maintenance, 12/22/19 21:46:00 EST, Route to Pharmacy Electronically, [facility]/pharmacy #[id number], 159, cm, 12/21/19 13:52:00 EST, Height Start Date: 12/22/19 Stop Date: 03/15/20 Status: Ordered meloxicam 15 mg oral tablet 1 tablet = 15 mg, By Mouth, Daily, # 30 tablet, 3 Refills, Maintenance, 01/06/20 14:22:00 EDT, Tablet, [facility] [address] 159, cm, 12/21/19 13:52:00 EST, Height Start Date: 01/06/20 Stop Date: 05/05/20 Status: Ordered Mylanta Maximum Strength oral suspension 20 mL, By Mouth, 4 times a day, between meals and at bedtime, # 240 mL, 1 Refills, Maintenance, 10/19/19 14:27:00 EST, Suspension, [facility], 20 mL By Mouth 4 times a day,Instr:between meals and at bedtime, 159, cm, 10/19/19 13:35:00... Start Date: 10/19/19 Status: Ordered omeprazole 40 mg oral enteric coated capsule 1 capsule = 40 mg, By Mouth, Daily, # 30 capsule, 2 Refills, Maintenance, 01/14/20 11:09:00 EDT, ECCapsule, [facility]., 159, cm, 12/21/19 13:52:00 EST, Height [...] 01/14/20 11:08:00 EDT, Route to Pharmacy Electronically, [facility]., 159, cm, 12/21/19 13:52:00 EST, Height Start Date: 01/14/20 Status: Ordered Problem List Condition Effective Dates Status Health Status Inform ant Hematuria(Confirmed) 1 Active Chronic back pain(Confirmed) Active Depression(Confirmed) Active Dyslipidemia(Confirmed) Active h/o allergic rhinitis(Confirmed) Active Illiteracy(Confirmed) Active Disc displacement(Confirmed) Active *[facility], [facility], (Confirmed) 08/06/18 Active N/[facility]/-Serena Purcell-[phone]/Health [facility], Active Care Coordination(Confirmed) Active Tubular adenoma of colon - d ue 2021(Confirmed) 2 11/2015 Active lul Vick -2014, had cystoscopy 2014 Social History Social History Type Response Smoking Status Never smoker entered on: 08/23/16 Sex
--- OUTSIDE RECORDS SUMMARY | 2023-06-10 06:25 | XMS_ITS | Continuity of Care Document ---
Author Name Unknown Organization [facility] Address [address] [place] [address]- Care Team Providers Care Aeronautical Design Engineer Name Role Phone Raiza KRISHNA, [place] Primary Care Physician [facility]counter [facility] Date(s): 03/21/22 - 04/29/22 [facility] [address] [place] [id number] Attending Physician: Not on Staff, Attending [...] 10/12/10 Given 1Admin Note: VIS given 05/30/10, American form 2Admin Note: VIS given, 08/2008, American form Medications amLODIPine 2.5 mg oral tablet 2.5 mg, 1, tablet, By Mouth, Daily, ; STOP amlodipine 5 mg. use this dose instead., # 30 tablet, Refills 5, Tot. Refills 5, Maintenance, 11/17/21 16:52:00 EST, Route to Pharmacy Electronically,[facility]/pharmacy #[id number], label all scripts in [facility] [place], 1... Start Date: 11/17/21 Stop Date: 05/16/22 Status: Ordered azelastine 0.05% ophthalmic solution 1 drops, Eyes, Both, 2 times a day, PRN for allergy symptoms, For eye allergies, # 6 mL, 6 Refills,Maintenance, 02/28/22 16:27:00 EDT, [facility]/pharmacy #[id number], Label in American, 1 drops Eyes, Both 2 times a day,PRN:for allergy symptoms,Instr:For eye aller... Start Date: 02/28/22 Status: Ordered azelastine 137 mcg/inh (0.1%) nasal spray 0 Refills, Maintenance, 12/07/21 11:16:00 EST, via Dr Glover, server service assistant Start Date: 12/07/21 Status: Ordered baclofen 10 mg oral tablet See Instructions, JUAN RAMON JOAN TABLETA POR VIA ORAL KARLA BERRY AL MONICA, # 63 tablet, Refills 0, Instructions Replace Required Details, [id number], 157.5, cm, 04/10/22 10:29:00 EDT, Height, 75, [...] 1 Refills, Maintenance, 08/28/21 14:44:00 EST, Solution, [facility]/pharmacy #[id number], Partial fill upon patient request [...] Maintenance, 12/07/21 11:16:00 EST, via Dr Glover, server service assistant, Supply Start Date: 12/07/21 Status: Ordered cyclobenzaprine 5 mg oral tablet 0 Refills, Maintenance, 09/28/21 13:55:00 EST, Partial fill upon patient request if the prescription is for a schedule II opioid drug. Start Date: 09/28/21 Status: Ordered diclofenac 3% topical gel 1 application, Topically, 2 times a day, # 100 Gm, 0 Refills, Maintenance, 04/28/21 17:22:00 EDT, Gel, [facility]/pharmacy #[id number], Partial fill upon patient request if the prescription is for a schedule II opioid drug., 1 application Topically 2 times a day,... Start Date: 04/28/21 Status: Ordered Flonase 50 mcg/inh nasal spray 1 sprays, Nares, Both, Daily, # 16 Gm, 1 Refills, Maintenance, 11/30/21 10:55:00 EST, [place], [facility]/pharmacy #[id number], 1 sprays Nares, Both Daily, [...] 12/18/21 10:54:00 EST, Route to Pharmacy Electronically, [facility]/pharmacy #[id number], Partial fill upon patient request if the prescription is for a schedule II opioid drug... Start Date: 12/18/21 Status: Ordered LUBRICNT EYE JESSICA 0.4-0.3% Maintenance, 12/07/21 11:16:00 EST, via Dr Glover, server service assistant, Supply Start Date: 12/07/21 Status: Ordered minoxidil 2% topical solution 1 mL = 0.02 Gm, Topically, 2 times a day, # 60 mL, 2 Refills, Maintenance, 02/28/22 16:27:00 EDT, Solution, [facility]/pharmacy #[id number], Partial fill upon patient request [...] Refills, Maintenance, 09/21/21 9:33:00 EST, REC Powder, [facility], Partial fill upon patient request if the prescription is for a schedule II opioid drug., 240 mL By Mouth Every 10 minut... Start Date: 09/21/21 Status: Ordered [place]-3 1000 mg oral capsule via psychiatry, 0 [...] 0 Refills, Maintenance, 01/02/22 20:52:00 EDT, Tablet, [facility]/pharmacy #[id number], Partial fill upon patient request [...] mL, 4 Refills, Maintenance, 02/28/22 16:09:00 EDT, [place], [facility]/pharmacy #[id number], Partial fill upon patient request if the prescription is for a schedule II opioid drug., 1 sprays N... Start Date: 02/28/22 Status: Ordered tamsulosin 0.4 mg oral capsule 0.4 mg, 1, capsule, By Mouth, Daily, at night (print label in urdu), # 30 capsule, Refills 1, Tot. Refills 1, Maintenance, 09/28/21 14:03:00 EST, Route to Pharmacy Electronically, [facility], Partial fill upon patient request if the... Start Date: 09/28/21 Status: Ordered Tears Naturale Forte preserved ophthalmic solution 1 drops, Eyes, Both, 2 times a day, PRN for dry eyes, # 30 mL, 0 Refills, Maintenance, 08/28/21 14:52:00 EST, Solution, [facility]/pharmacy #[id number], Partial fill upon patient request if the prescription is for a schedule II opioid drug., 1 drops Eyes, Both 2 t... Start Date: 08/28/21 Status: Ordered tiZANidine 2 mg oral capsule 1 capsule = 2 mg, By Mouth, 3 times a day, PRN as needed for muscle spasm, # 9 capsule, 0 Refills, Maintenance, 04/28/21 17:18:00 EDT, Capsule, [facility]/pharmacy #[id number], urdu labeling, 159, cm, 04/28/2115:46:00 EDT, Height, 78, kg, 01/01/21 16:06:00 EDT... Start Date: 04/28/21 Stop Date: 05/01/21 Status: Ordered Tums 500 mg oral tablet, chewable 500 mg, 1, tablet, Chew, 2 times a day, # 60 tablet, Refills 5, Tot. Refills 5, Maintenance, 12/16/20 14:32:00 EST, Route to Pharmacy Electronically, [facility]/pharmacy #[id number], 159, cm, 12/16/20 13:47:00 EST, [...] class I(Confirmed) Active Onychomycosis(Confirmed) Active *[facility]-Patricia [phone]/[facility], Active Care Coordination(Confirmed) Active Nasal septum perforation, h/ o cocaine(Confirmed) Active Muscle spasm(Confirmed) Active Tubular adenoma of colon - d ue 2021(Confirmed) 2 11/2015 Active 1, gross 2-2014, had cystoscopy 2014 Social History Social History Type Response Smoking Status Never smoker entered on: 08/23/16 Sex
--- OUTSIDE RECORDS SUMMARY | 2023-06-10 06:25 | XMS_ITS | Continuity of Care Document ---
Author Name Unknown Organization [facility] Address [address] [place] [address]- Care Team Providers Care Duct Installer Name Role Phone Bebe KRISHNA, Hugh Primary Care Physician [place] [facility] [place]20 [facility] [address] [place], [place] [address] Attending Physician: Heena Mazariegos MD [...] 10/12/10 Given 1Admin Note: VIS given 05/30/10, Slovenian form 2Admin Note: VIS given, 08/2008, Slovenian form Medications amLODIPine 2.5 mg oral tablet 2.5 mg, 1, tablet, By Mouth, Daily, ; STOP amlodipine 5 mg. use this dose instead., # 30 tablet, Refills 11, Tot. Refills 11, Maintenance, 11/22/20 16:52:00 EST, Route to Pharmacy Electronically, [facility]/pharmacy #[id number], label all scripts in [place],... Start Date: 11/22/20 Stop Date: 11/17/21 Status: Ordered Artificial Tears preserved solution 1 drops, Eyes, Both, 2 times a day, PRN for dry eyes, # 10 mL, 0 Refills, Maintenance, 10/19/19 14:27:00 EST, Solution, [facility] 1 drops Eyes, Both 2 times a day,PRN:for dry eyes, 159, cm, 10/19/19 13:35:00 EST, Height Start Date: 10/19/19 Status: Ordered Flonase 50 mcg/inh nasal spray 1 sprays, Nares, Both, Daily, # 16 Gm, 1 Refills, Maintenance, 06/16/20 18:04:00 EDT, [place], [facility]/pharmacy #[id number], 159, cm, 06/08/20 13:31:00 EDT, Height Start Date: 06/16/20 Status: Ordered Home Blood Pressure Monitor See Instructions, # 1 each, Refills 0, Tot. Refills 0, Acute 11/23/21 9:00:00 EST, Check BP once daily 1 hour after taking BP medications dx: i10 duration: lifetime, 11/23/20 8:08:00 EST, Supply Start Date: 11/23/20 Stop Date: 11/23/21 Status: Ordered multivitamin Multiple Vitamins oral capsule 1 capsule, By Mouth, Daily, # 90 capsule, 11 Refills, Maintenance, 08/12/20 11:32:00 EDT, Capsule, [facility]/pharmacy #[id number], 1 capsule By Mouth Daily, 159, cm, 07/27/20 13:20:00 EDT, Height Start Date: 08/12/20 Status: Ordered Mylanta Maximum Strength oral suspension 20 mL, By Mouth, 4 times a day, between meals and at bedtime, # 240 mL, 1 Refills, Maintenance, 10/19/19 14:27:00 EST, Suspension, [facility], 20 mL By Mouth 4 times a day,Instr:between meals and at bedtime, 159, cm, 10/19/19 13:35:00... Start Date: 10/19/19 Status: Ordered omeprazole 40 mg oral enteric coated capsule 1 capsule = 40 mg, By Mouth, 2 times a day, # 60 capsule, 4 Refills, Maintenance, 10/05/20 14:48:00EST, EC Capsule, [facility]/pharmacy #[id number], Partial fill upon patient [...] Status: Ordered QUEtiapine 100 mg oral tablet via Psychaitry, Syl Riley, Refills 0, Maintenance, 11/22/20 16:15:00 EST, Partial fill upon patient request if the prescription is for a schedule II opioid drug. Start Date: 11/22/20 Status: Ordered Tums 500 mg oral tablet, chewable 500 mg, 1, tablet, Chew, 2 times a day, # 60 tablet, Refills 3, Tot. Refills 3, Maintenance, 01/14/20 11:08:00 EDT, Route to Pharmacy Electronically, [facility] 159, cm, 12/21/19 13:52:00 EST, Height Start Date: 01/14/20 Status: Ordered Tylenol 8 HR Arthritis Pain 650 mg oral tablet, extended release 1 tablet = 650 mg, By Mouth, Every 8 hours, # 100 tablet, 1 Refills, Acute 09/11/21 13:31:00 EST, 09/12/20 13:30:00 EST, ER Tablet, [facility], 159, cm, 07/27/20 13:20:00 EDT, Height Start Date: 09/12/20 Stop Date: 09/11/21 Status: Ordered Problem List Condition Effective Dates Status Health Status Inform ant Hematuria(Confirmed) 1 Active Chronic back pain(Confirmed) Active Dyslipidemia(Confirmed) Active h/o allergic rhinitis(Confirmed) Active Illiteracy(Confirmed) Active Dyspepsia(Confirmed) Active Disc displacement(Confirmed) Active N/[facility]/CC-Serena Purcell-[phone]/Health Intermediate, Active Care Coordination(Confirmed) Active Tubular adenoma of colon - d ue 2021(Confirmed) 2 11/2015 Active 1llu -2014, had cystoscopy 2014 Social History Social History Type Response Smoking Status Never smoker entered on: 08/23/16 Sex
--- OUTSIDE RECORDS SUMMARY | 2023-06-10 06:26 | XMS_ITS | Continuity of Care Document ---
Author Name Unknown Organization [facility] Address [address] [place] [address]- Care Team Providers Care Certified Emergency Vehicle Technician Name Role Phone Hugh Spence MD Primary Care Physician [phone] Encounter [facility] [place] Date(s): 10/17/20 - 12/09/20 [facility] [address] [place], [place] [address] Attending Physician: Lloyd Santiago MD [...] Route to Pharmacy Electronically, [facility]/pharmacy #[id number], label all scripts in [place],... Start Date: 11/22/20 Stop Date: 11/17/21 Status: Ordered Artificial Tears preserved solution 1 drops, Eyes, Both, 2 times a day, PRN for dry eyes, # 10 mL, 0 Refills, Maintenance, 10/19/19 14:27:00 EST, Solution, [facility] 1 drops Eyes, Both 2 times a day,PRN:for dry eyes, 159, cm, 10/19/19 13:35:00 EST, Height Start Date: 10/19/19 Status: Ordered Flonase 50 mcg/inh nasal spray 1 sprays, Nares, Both, Daily, # 16 Gm, 1 Refills, Maintenance, 06/16/20 18:04:00 EDT, [place], [facility]/pharmacy #[id number], 159, cm, 06/08/20 [...] 1 Refills, Maintenance, 10/19/19 14:27:00 EST, Suspension, [facility] 20 mL By Mouth 4 times [...] 01/14/20 11:08:00 EDT, Route to Pharmacy Electronically, [facility], 159, cm, 12/21/19 13:52:00 EST, Height [...] Active Dyspepsia(Confirmed) Active Disc displacement(Confirmed) Active BHN/[facility]/CC-Serena Purcell-[phone]/Health [facility], Active Care Coordination(Confirmed) Active Tubular adenoma of colon - d ue 2021(Confirmed) 2 11/2015 Active 1 gross 2-2014, had cystoscopy 2014 Social History Social History Type Response Smoking Status Never smoker entered on: 08/23/16 Sex
--- OUTSIDE RECORDS SUMMARY | 2023-06-10 06:26 | XMS_ITS | Continuity of Care Document ---
Author Name Unknown Organization [facility] Address [address] [place] [address]- Care Team Providers Care Business Liaison Manager Name Role Phone Raiza KRISHNA, [place] Primary Care Physician [phone] Encounter [facility] Date(s): 03/20/22 - 04/19/22 [facility] [address] [place] [id number] Allergies, Adverse [...] 10/12/10 Given 1Admin Note: VIS given 05/30/10, [place] form 2Admin Note: VIS given, 08/2008, [place] form Medications amLODIPine 2.5 mg oral tablet 2.5 mg, 1, tablet, By Mouth, Daily, ; STOP amlodipine 5 mg. use this dose instead., # 30 tablet, Refills 5, Tot. Refills 5, Maintenance, 11/17/21 16:52:00 EST, Route to Pharmacy Electronically,[facility]/pharmacy #[id number], label all scripts in [place], 1... Start Date: 11/17/21 Stop Date: 05/16/22 Status: Ordered azelastine 0.05% ophthalmic solution 1 drops, Eyes, Both, 2 times a day, PRN for allergy symptoms, For eye allergies, # 6 mL, 6 Refills,Maintenance, 02/28/22 16:27:00 EDT, [facility]/pharmacy #[id number], Label in [place], 1 drops Eyes, Both 2 times a day,PRN:for allergy symptoms,Instr:For eye aller... Start Date: 02/28/22 Status: Ordered azelastine 137 mcg/inh (0.1%) nasal spray 0 Refills, Maintenance, 12/07/21 11:16:00 EST, via Dr Glover, cloth beamer Start Date: 12/07/21 Status: Ordered baclofen 10 mg oral tablet See Instructions, JUAN RAMON FRANCO TABLETA POR VIA ORAL KARLA VECES AL MONICA, # 63 tablet, Refills 0, Instructions Replace Required Details, Route to Pharmacy Electronically, [id number], 157.5, cm, 04/10/22 10:29:00 EDT, Height, 75, [...] 1 Refills, Maintenance, 08/28/21 14:44:00 EST, Solution, [facility]/pharmacy #[id number], Partial fill upon patient request if the prescription is for... Start Date: 08/28/21 Status: Ordered Crutches See Instructions, # 1 kit, Maintenance, use for 2 weeks dx: leg injury, 03/27/22 10:10:00 EDT, Supply, 157.5, cm, 03/27/22 9:45:00 EDT, Height, 75, kg, 03/25/22 2:00:00 EDT, Dry Weight Start Date: 03/27/22 Status: Ordered [facility] LUBRICANT EYE DROPS Maintenance, 12/07/21 11:16:00 EST, via Dr Glover, cloth beamer, Supply Start Date: 12/07/21 Status: Ordered cyclobenzaprine 5 mg oral tablet 0 Refills, Maintenance, 09/28/21 13:55:00 EST, Partial fill upon patient request if the prescription is for a schedule II opioid drug. Start Date: 09/28/21 Status: Ordered diclofenac 3% topical gel 1 application, Topically, 2 times a day, # 100 Gm, 0 Refills, Maintenance, 04/28/21 17:22:00 EDT, Gel, [facility]/pharmacy #[id number], Partial fill upon patient request if the prescription is for a schedule II opioid drug., 1 application Topically 2 times a day,... Start Date: 04/28/21 Status: Ordered Flonase 50 mcg/inh nasal spray 1 sprays, Nares, Both, Daily, # 16 Gm, 1 Refills, Maintenance, 11/30/21 10:55:00 EST, [place], [facility]/pharmacy #[id number], 1 sprays Nares, [...] 12/18/21 10:54:00 EST, Route to Pharmacy Electronically, [facility]/pharmacy #[id number], Partial fill upon patient request if the prescription is for a schedule II opioid drug... Start Date: 12/18/21 Status: Ordered LUBRICNT EYE JESSICA 0.4-0.3% Maintenance, 12/07/21 11:16:00 EST, via Dr Glover, cloth beamer, Supply Start Date: 12/07/21 Status: Ordered minoxidil 2% topical solution 1 mL = 0.02 Gm, Topically, 2 times a day, # 60 mL, 2 Refills, Maintenance, 02/28/22 16:27:00 EDT, Solution, [facility]/pharmacy #[id number], Partial fill upon [...] Refills, Maintenance, 09/21/21 9:33:00 EST, REC Powder, [facility], Partial fill upon patient request if the prescription is for a schedule II opioid drug., 240 mL By Mouth Every 10 minut... Start Date: 09/21/21 Status: Ordered [place]-3 1000 mg oral capsule via psychiatry, 0 [...] 0 Refills, Maintenance, 01/02/22 20:52:00 EDT, Tablet, [facility]/pharmacy #[id number], Partial fill upon [...] mL, 4 Refills, Maintenance, 02/28/22 16:09:00 EDT, [place], [facility]/pharmacy #[id number], Partial fill upon patient request if the prescription is for a schedule II opioid drug., 1 sprays N... Start Date: 02/28/22 Status: Ordered tamsulosin 0.4 mg oral capsule 0.4 mg, 1, capsule, By Mouth, Daily, at night (print label in egyptian), # 30 capsule, Refills 1, Tot. Refills 1, Maintenance, 09/28/21 14:03:00 EST, Route to Pharmacy Electronically, [facility], Partial fill upon patient request if the... Start Date: 09/28/21 Status: Ordered Tears Naturale Forte preserved ophthalmic solution 1 drops, Eyes, Both, 2 times a day, PRN for dry eyes, # 30 mL, 0 Refills, Maintenance, 08/28/21 14:52:00 EST, Solution, [facility]/pharmacy #[id number], Partial fill upon [...] Maintenance, 04/28/21 17:18:00 EDT, Capsule, [id number], egyptian labeling, 159, cm, 04/28/2115:46:00 EDT, Height, 78, kg, 01/01/21 16:06:00 EDT... Start Date: 04/28/21 Stop Date: 05/01/21 Status: Ordered Tums 500 mg oral tablet, chewable 500 mg, 1, tablet, Chew, 2 times a day, # 60 tablet, Refills 5, Tot. Refills 5, Maintenance, 12/16/20 14:32:00 EST, Route to Pharmacy Electronically, [facility]/pharmacy #[id number], 159, cm, 12/16/20 [...] class I(Confirmed) Active Onychomycosis(Confirmed) Active *N/[facility]/CC-Patricia [phone]/Health [facility], Active Care Coordination(Confirmed) Active Nasal septum perforation, h/ o cocaine(Confirmed) Active Muscle spasm(Confirmed) Active Tubular adenoma of colon - d ue 2021(Confirmed) 2 11/2015 Active 1, gross 2-2014, had cystoscopy 2014 Social History Social History Type Response Smoking Status Never smoker entered on: 08/23/16 Sex
--- OUTSIDE RECORDS SUMMARY | 2023-06-10 06:26 | XMS_ITS | Continuity of Care Document ---
Author Name Unknown Organization [facility] ter Address [address] [place] [id number]- Care Team Providers Care Clearing Distribution Clerk Name Role Phone Bebe KRISHNA, Hugh Primary Care Physician [phone] [place] [facility] [place] 10[place] [address]- Discharge Disposition: A-D/C Home Attending Physician: Andres Morris MD Admitting Physician: Andres Morris MD Referring Physician: Not on Staff, Referring [...] 10/12/10 Given 1Admin Note: VIS given 05/30/10, [place]ian form 2Admin Note: VIS given, 08/2008, [place]ian form Medications amLODIPine 5 mg oral tablet 5 mg, 1, tablet, By Mouth, Daily, # 90 tablet, Refills 10, Tot. Refills 10, Maintenance, 06/08/20 15:00:00 EDT, Route to Pharmacy Electronically, [facility]/pharmacy #[id number], 159, cm, 06/08/20 13:31:00 EDT, Height Start Date: 06/08/20 Stop Date: 02/23/23 Status: Ordered Artificial Tears preserved solution 1 drops, Eyes, Both, 2 times a day, PRN for dry eyes, # 10 mL, 0 Refills, Maintenance, 10/19/19 14:27:00 EST, Solution, [facility] 1 drops Eyes, Both 2 times a day,PRN:for dry eyes, 159, cm, 10/19/19 13:35:00 EST, Height Start Date: 10/19/19 Status: Ordered dextromethorphan 10 mg/5 mL oral syrup 10 mL = 20 mg, By Mouth, Every 4 hours, PRN as needed for cough, # 120 mL, 0 Refills, Maintenance, 06/21/20 22:41:00 EDT, Syrup, [facility]/pharmacy #[id number], 159, cm, 06/08/20 13:31:00 EDT, Height Start Date: 06/21/20 Status: Ordered Flonase 50 mcg/inh nasal spray 1 sprays, Nares, Both, 2 times a day, # 16 Gm, 1 Refills, Maintenance, 06/16/20 18:04:00 EDT, [place], [facility]/pharmacy #[id number], 1 sprays Nares, Both 2 times a day, 159, cm, 06/08/20 13:31:00 EDT, Height Start Date: 06/16/20 Status: Ordered meloxicam 15 mg oral tablet 1 tablet = 15 mg, By Mouth, Daily, # 30 tablet, 1 Refills, Maintenance, 09/12/20 13:30:00 EST, Tablet, [facility] Partial fill upon patient request, 159, cm, 07/27/20 13:20:00 EDT, Height Start Date: 09/12/20 Stop Date: 09/13/21 Status: Ordered multivitamin Multiple Vitamins oral capsule 1 capsule, By Mouth, Daily, # 90 capsule, 11 Refills, Maintenance, 08/12/20 11:32:00 EDT, Capsule, [facility]/pharmacy #[id number], 1 capsule By Mouth Daily, 159, cm, 07/27/20 13:20:00 EDT, Height Start Date: 08/12/20 Status: Ordered Mylanta Maximum Strength oral suspension 20 mL, By Mouth, 4 times a day, between meals and at bedtime, # 240 mL, 1 Refills, Maintenance, 10/19/19 14:27:00 EST, Suspension, [facility] 20 mL By Mouth 4 times a day,Instr:between meals and at bedtime, 159, cm, 10/19/19 13:35:00... Start Date: 10/19/19 Status: Ordered omeprazole 40 mg oral enteric coated capsule 1 capsule = 40 mg, By Mouth, 2 times a day, # 60 capsule, 4 Refills, Maintenance, 10/05/20 14:48:00EST, EC Capsule, [facility]/pharmacy #[id number], Partial fill upon patient request [...] 10/20/20 18:51:00 EST, Route to Pharmacy Electronically, [facility]/pharmacy #[id number], Partial fill upon patient request if the prescription is for a schedule II opio... Start Date: 10/20/20 Stop Date: 10/27/20 Status: Ordered Tums 500 mg oral tablet, chewable 500 mg, 1, tablet, Chew, 2 times a day, # 60 tablet, Refills 3, Tot. Refills 3, Maintenance, 01/14/20 11:08:00 EDT, Route to Pharmacy Electronically, [facility] 159, cm, 12/21/19 13:52:00 EST, Height Start Date: 01/14/20 Status: Ordered Tylenol 8 HR Arthritis Pain 650 mg oral tablet, extended release 1 tablet = 650 mg, By Mouth, Every 8 hours, # 100 tablet, 1 Refills, Acute 09/11/21 13:31:00 EST, 09/12/20 13:30:00 EST, ER Tablet, [facility]., 159, cm, 07/27/20 13:20:00 EDT, Height Start Date: 09/12/20 Stop Date: 09/11/21 Status: Ordered Problem List Condition Effective Dates Status Health Status Inform ant Hematuria(Confirmed) 1 Active Chronic back pain(Confirmed) Active Dyslipidemia(Confirmed) Active h/o allergic rhinitis(Confirmed) Active Illiteracy(Confirmed) Active Dyspepsia(Confirmed) Active Disc displacement(Confirmed) Active [facility]/CC-Serena Binh-[phone]/Health [facility], Active Care Coordination(Confirmed) Active Tubular adenoma of colon - d ue 2021(Confirmed) 2 11/2015 Active 1, gross 2-2014, had cystoscopy 2014 Vital Signs Most recent to oldest [Reference Range]: 1 2 Weight 74.1 kg (10/20/20 4:18 PM) 74.1 kg (10/20/20 3:59 PM) Oxygen Saturation [94-100 %] 100 % (10/20/20 7:26 PM) 100 % (10/20/20 3:59 PM) Pulse Rate [55-90 bpm] 67 bpm (10/20/20 7:26 PM) 78 bpm (10/20/20 3:59 PM) Blood Pressure [90-138/55-84 mm Hg] 118/ 86mm Hg (10/20/20 7:26 PM) 137/97mm Hg (10/20/20 3:59 PM) Respiratory Rate [16-30 br/min] 18 br/mi n (10/20/20 7:26 PM) 20 br/min (10/20/20 3:59 PM) Temperature [96.8-100.4 DegF] 98.2 DegF (10/20/20 7:26 PM) 98.7 DegF (10/20/20 3:59 PM) Mode of Delivery (Oxygen) Room air (10/20/20 7:26 PM) Room air (10/20/20 3:59 PM) Blood pressure sites Arm, left (10/20/20 7:26 PM) Arm, right (10/20/20 3:59 PM) Temperature Route Oral (10/20/20 7:26 PM) Oral (10/20/20 3:59 PM) Dry Weight 74.1 kg (10/20/20 4:18 PM) 74.1 kg (10/20/20 3:59 PM) Weight Obtained Via Standing scale (10/20/20 3:59 PM) Dry Weight Obtained Via Standing scale (10/20/20 3:59 PM) Social History Social History Type Response Smoking Status Never smoker entered on: 08/23/16 Sex
--- OUTSIDE RECORDS SUMMARY | 2023-06-10 06:26 | XMS_ITS | Continuity of Care Document ---
Author Name Unknown Organization [facility] Address [address] [place] [address]- Care Team Providers Care Acid Splicer Name Role Phone Raiza KRISHNA, [place] Primary Care Physician [facility]counter [facility] Date(s): 01/15/22 - 02/14/22 [facility] [address] [place] [id number] Allergies, Adverse Reactions, Alerts [...] 10/12/10 Given 1Admin Note: VIS given 05/30/10, Citizen Of [place] form 2Admin Note: VIS given, 08/2008, Citizen Of [place] form Medications amLODIPine 2.5 mg oral tablet 2.5 mg, 1, tablet, By Mouth, Daily, ; STOP amlodipine 5 mg. use this dose instead., # 30 tablet, Refills 5, Tot. Refills 5, Maintenance, 11/17/21 16:52:00 EST, Route to Pharmacy Electronically,[facility]/pharmacy #[id number], label all scripts in [place], 1... Start Date: 11/17/21 Stop Date: 05/16/22 Status: Ordered azelastine 0.05% ophthalmic solution 1 drops, Eyes, Both, 2 times a day, PRN for allergy symptoms, For eye allergies, # 6 mL, 6 Refills,Maintenance, 12/18/21 10:53:00 EST, [facility]/pharmacy #[id number], Label in [place], 1 drops Eyes, Both 2 times a day,PRN:for allergy symptoms,Instr:For eye aller... Start Date: 12/18/21 Status: Ordered azelastine 137 mcg/inh (0.1%) nasal spray 0 Refills, Maintenance, 12/07/21 11:16:00 EST, via Dr Glover, ink jet operator Start Date: 12/07/21 Status: Ordered buPROPion 150 [...] 1 Refills, Maintenance, 08/28/21 14:44:00 EST, Solution, [facility]/pharmacy #[id number], Partial fill upon patient request if the prescription is for... Start Date: 08/28/21 Status: Ordered [facility] LUBR[facility]ANT EYE DROPS Maintenance, 12/07/21 11:16:00 EST, via Dr Glover, ink jet operator, Supply Start Date: 12/07/21 Status: Ordered cyclobenzaprine 5 mg oral tablet 0 Refills, Maintenance, 09/28/21 13:55:00 EST, Partial fill upon patient request if the prescription is for a schedule II opioid drug. Start Date: 09/28/21 Status: Ordered diclofenac 3% topical gel 1 application, Topically, 2 times a day, # 100 Gm, 0 Refills, Maintenance, 04/28/21 17:22:00 EDT, Gel, [facility]/pharmacy #[id number], Partial fill upon patient request if the prescription is for a schedule II opioid drug., 1 application Topically 2 times a day,... Start Date: 04/28/21 Status: Ordered Flonase 50 mcg/inh nasal spray 1 sprays, Nares, Both, Daily, # 16 Gm, 1 Refills, Maintenance, 11/30/21 10:55:00 EST, [place], [facility]/pharmacy #[id number], 1 sprays Nares, Both Daily, 159, cm, 11/30/21 9:50:00 EST, Height, 78, kg, 01/01/21 16:06:00 EDT, Dry Weight Start Date: 11/30/21 Status: Ordered loratadine 10 mg oral tablet 10 mg, 1, tablet, By Mouth, Daily, # 30 tablet, Refills 5, Tot. Refills 5, Maintenance, 12/18/21 10:54:00 EST, Route to Pharmacy Electronically, [facility]/pharmacy #[id number], Partial fill upon patient request if the prescription is for a schedule II opioid drug... Start Date: 12/18/21 Status: Ordered LUBRICNT EYE JESSICA 0.4-0.3% Maintenance, 12/07/21 11:16:00 EST, via Dr Glover, ink jet operator, Supply Start Date: 12/07/21 Status: Ordered multivitamin Multiple Vitamins oral capsule 1 capsule, By Mouth, Daily, # 90 capsule, 0 Refills, Maintenance, 10/18/21 22:09:00 EST, Capsule, [facility]/pharmacy #[id number], 1 capsule By Mouth Daily, 159, cm, 10/05/21 13:26:00 EST, Height, 78, kg, 01/01/21 16:06:00 EDT, Dry Weight Start Date: 10/18/21 Status: Ordered NuLYTELY with Flavor Packs oral powder for reconstitution 240 mL, By Mouth, Every 10 minutes, # 1 each, 0 Refills, Maintenance, 09/21/21 9:33:00 EST, REC Powder, [facility], Partial fill upon patient request if the prescription is for a schedule II opioid drug., 240 mL By Mouth Every 10 minut... Start Date: 09/21/21 Status: Ordered [place]-3 1000 mg oral capsule via psychiatry, 0 Refills, Maintenance, 12/07/21 11:13:00 EST, Partial fill upon patient request ifthe prescription is for a schedule II opioid drug. Start Date: 12/07/21 Status: Ordered omeprazole 40 mg oral enteric coated capsule 1 capsule = 40 mg, By Mouth, 2 times a day, # 60 capsule, 2 Refills, Maintenance, 04/13/21 10:31:00EDT, EC Capsule, [facility]/pharmacy #[id number], Partial fill upon patient request if the prescription is for aschedule II opioid drug., 159, cm, 01/04/21 9:23:00... Start Date: 04/13/21 Stop Date: 07/12/21 Status: Ordered Lynette-Colace 50 mg-8.6 mg oral tablet 2 tablet, By Mouth, Daily at bedtime, PRN Constipation, For constipation, # 60 tablet, 0 Refills, Maintenance, 01/02/22 20:52:00 EDT, Tablet, [facility]/pharmacy #[id number], Partial fill upon patient request [...] Mouth, Daily, at night (print label in namibian), # 30 capsule, Refills 1, Tot. Refills 1, Maintenance, 09/28/21 14:03:00 EST, Route to Pharmacy Electronically, [facility], Partial fill upon patient request if the... Start Date: 09/28/21 Status: Ordered Tears Naturale Forte preserved ophthalmic solution 1 drops, Eyes, Both, 2 times a day, PRN for dry eyes, # 30 mL, 0 Refills, Maintenance, 08/28/21 14:52:00 EST, Solution, [facility]/pharmacy #[id number], Partial fill upon patient request if the prescription is for a schedule II opioid drug., 1 drops Eyes, Both 2 t... Start Date: 08/28/21 Status: Ordered tiZANidine 2 mg oral capsule 1 capsule = 2 mg, By Mouth, 3 times a day, PRN as needed for muscle spasm, # 9 capsule, 0 Refills, Maintenance, 04/28/21 17:18:00 EDT, Capsule, [facility]/pharmacy #[id number], namibian labeling, 159, cm, 04/28/2115:46:00 EDT, Height, 78, kg, 01/01/21 16:06:00 EDT... Start Date: 04/28/21 Stop Date: 05/01/21 Status: Ordered Tums 500 mg oral tablet, chewable 500 mg, 1, tablet, Chew, 2 times a day, # 60 tablet, Refills 5, Tot. Refills 5, Maintenance, 12/16/20 14:32:00 EST, Route to Pharmacy Electronically, [facility]/pharmacy #[id number], 159, cm, 12/16/20 13:47:00 EST, Height, 74.1, kg, 10/20/20 16:18:00 EST, Dry Weight Start Date: 12/16/20 Status: Ordered Problem List Condition Effective Dates Status Health Status Inform ant Hematuria(Confirmed) 1 Active Chronic back pain(Confirmed) Active Dyslipidemia(Confirmed) Active Allergic rhinitis(Confirmed) Active Illiteracy(Confirmed) Active Dyspepsia(Confirmed) Active Disc displacement(Confirmed) Active Obese class I(Confirmed) Active Onychomycosis(Confirmed) Active *[facility]/CC-Patricia [phone]/Health Custodial, Active Care Coordination(Confirmed) Active Nasal septum perforation, h/ o cocaine(Confirmed) Active Muscle spasm(Confirmed) Active Tubular adenoma of colon - d ue 2021(Confirmed) 2 11/2015 Active 1 gross 2-2014, had cystoscopy 2014 Social History Social History Type Response Smoking Status Never smoker entered on: 08/23/16 Sex
--- OUTSIDE RECORDS SUMMARY | 2023-06-10 06:26 | XMS_ITS | Continuity of Care Document ---
Author Name Unknown Organization [facility] Address [address] [place] [address]- Care Team Providers Care Retail Salesworker Name Role Phone Raiza KRISHNA, [place] Primary Care Physician [facility]counter [facility] Date[facility]s): 05/02/23 - 06/01/23 [facility] [address] [place] [id number] Allergies, Adverse Reactions, Alerts Substance [...] inactivated 1 10/12/10 Gi jocy SARS-CoV-2 mRNA ([id number]) vax 06/13/22 Recorded SARS-CoV-2 (COVID-19) mRNA BNT-162b2 vac 09/13/21 Recorded SARS-CoV-2 (COVID-19) mRNA BNT-162b2 vac 02/27/21 Given SARS-CoV-2 (COVID-19) mRNA BNT-162b2 vac 02/06/21 Given tetanus-diphtheria toxoids (Td) 11/23/20 Given tetanus/diphtheria/pertussis, acel(Tdap) 2 10/12/10 Given 1Admin Note: VIS given 05/30/10, Bulgarian form 2Admin Note: VIS given, 08/2008, [place]ian form Medications amLODIPine 5 mg oral tablet 5 mg, 1, tablet, By Mouth, Daily, # 90 tablet, Refills 3, Tot. Refills 3, Maintenance, 05/17/23 16:45:00 EDT, Route to Pharmacy Electronically, [facility]/pharmacy #[id number], Partial fill upon patient request if the prescription is for a schedule II opioid drug.... Start Date: 05/17/23 Status: Ordered Artificial Tears preserved solution 1 drops, Eyes, Both, 2 times a day, PRN for dry eyes, # 30 mL, 2 Refills, Maintenance, 02/04/23 9:35:00 EDT, Solution, [facility]/pharmacy #[id number], Partial fill upon patient request if the prescription is fora schedule II opioid drug., 1 drops Eyes, Both 2 ti... Start Date: 02/04/23 Status: Ordered azelastine 137 mcg/inh (0.1%) nasal spray 0 Refills, Maintenance, 12/07/21 11:16:00 EST, via Dr Glover, training director Start Date: 12/07/21 Status: Ordered buPROPion 150 mg/24 hours (XL) oral tablet, extended release via psychiatry, 0 Refills, Maintenance, 12/07/21 11:13:00 EST, Partial fill upon patient request ifthe prescription is for a schedule II opioid drug. Start Date: 12/07/21 Status: Ordered ciclopirox topical 0.77% suspension 1 application, Topically, 2 times a day, Print instructions in argentine use only for toenails, # 60 mL, 1 Refills, Maintenance, 01/18/23 10:15:00 EDT, Suspension, [facility]/pharmacy #[id number], Partial fill uponpatient request if the prescription is for a sched... Start Date: 01/18/23 Status: Ordered [facility] Maintenance, 12/07/21 11:16:00 EST, via Dr Glover, training director, Supply Start Date: 12/07/21 Status: Ordered diclofenac 1% topical gel 1 application, Topically, 4 times a day, # 100 Gm, 5 Refills, Maintenance, 12/07/22 11:37:00 EST, Gel, [facility]/pharmacy #[id number], Partial fill upon [...] 1 application, Topically, Daily, Print instructions in argentine Use only on feet, # 60 Gm, 1 Refills, Maintenance, 01/18/23 10:16:00 EDT, Cream, [id number], Partial fill upon patient request if the prescription is for a schedule II opioid drug... Start Date: 01/18/23 Status: Ordered LUBRICNT EYE JESSICA 0.4-0.3% Maintenance, 12/07/21 11:16:00 EST, via Dr Glover, training director, Supply Start Date: 12/07/21 Status: Ordered multivitamin [...] Refills, Maintenance, 12/07/22 11:36:00 EST, Suspension, [facility]/pharmacy #[id number], Partial fill upon patient request if the prescription is for a schedule II opioid drug., 5 mL By M... Start Date: 12/07/22 Status: Ordered NeilMed Sinus Rinse Kit nasal powder for reconstitution See Instructions, Use as instructed on jodi, # 1 kit, 0 Refills, Maintenance, 02/28/23 7:36:00 EDT, [id number], Partial fill upon patient request if the prescription is for a schedule II opioid drug., Use as instructed on jodi, 158, cm, 02/20/23... Start Date: 02/28/23 Status: Ordered [place]-3 1000 mg oral capsule via psychiatry, 0 Refills, Maintenance, 12/07/21 11:13:00 EST, Partial fill upon patient request ifthe prescription is for a schedule II opioid drug. Start Date: 12/07/21 Status: Ordered omeprazole 40 mg oral enteric coated capsule See Instructions, [facility], # 180 capsule, 1 Refills, Maintenance, 02/25/23 7:44:00 EDT, [id number], 158, cm, 02/20/23 9:30:00 EDT, Height, 76.5, [...] 3 Refills, Maintenance, 05/17/23 16:47:00 EDT, Tablet, [facility]/pharmacy #[id number], label in Bulgarian, 159, cm, 05/17/23 16:29:00 EDT, Height, 73.4, kg, 05/02/23 14:49:00 EDT, Dry Weight Start Date: 05/17/23 Stop Date: 05/11/24 Status: Ordered Saline Mist 0.65% nasal spray 2 sprays, Nares, Both, 4 times a day, # 60 mL, 1 Refills, Maintenance, 02/08/23 13:50:00 EDT, [facility]/pharmacy #[id number], Partial fill upon [...] Details, Route to Pharmacy Electronically, [id number], 159, cm, 05/02/23 14:49:00 EDT, Height, 73.4, kg,... Start Date: 05/15/23 Status: Ordered Tears Naturale Forte preserved ophthalmic solution 1 drops, Eyes, Both, 2 times a day, PRN for dry eyes, # 30 mL, 0 Refills, Maintenance, 11/30/22 11:37:00 EST, Solution, [facility]/pharmacy #[id number], Partial fill upon [...] EAST Resident Member Role: PCP Address: Address: [address] [place] [address]- Care Team Related Persons Name: AJAY BE Address: [place] [address] Name: KAMALJIT FUCHS Address: home [address] [place] [address] [address] [place] [address]
--- OUTSIDE RECORDS SUMMARY | 2023-06-10 06:26 | XMS_ITS | Continuity of Care Document ---
Author Name Unknown Organization [facility] Address [address] [place] [address]- Care Team Providers Care Network Planner Name Role Phone [place] Eastman MD Primary Care Physician [place] [facility] [place] - 10/20/21 [facility] [address] [place] [id number]- [place] Allergies, Adverse Reactions, Alerts Substance Reaction [...] 10/12/10 Given 1Admin Note: VIS given 05/30/10, Turk[place] form 2Admin Note: VIS given, 08/2008, Turk[place] form Medications amLODIPine 2.5 mg oral tablet 2.5 mg, 1, tablet, By Mouth, Daily, ; STOP amlodipine 5 mg. use this dose instead., # 30 tablet, Refills 11, Tot. Refills 11, Maintenance, 11/22/20 16:52:00 EST, Route to Pharmacy Electronically, [facility]/pharmacy #[id number], label all scripts in DANISH,... Start Date: 11/22/20 Stop Date: 11/17/21 Status: Ordered azelastine 0.05% ophthalmic solution 1 drops, Eyes, Both, 2 times a day, PRN for allergy symptoms, # 6 mL, 6 Refills, Maintenance, 01/13/21 14:54:00 EDT, [facility]/pharmacy #[id number], Label in Turkmen, 1 drops Eyes, Both 2 times a [...] Gm, 1 Refills, Maintenance, 06/16/20 18:04:00 EDT, [place], [id number], 159, cm, 06/08/20 13:31:00 EDT, Height Start Date: 06/16/20 Status: Ordered multivitamin Multiple Vitamins oral capsule 1 capsule, By Mouth, Daily, # 90 capsule, 0 Refills, Maintenance, 10/18/21 22:09:00 EST, Capsule, [facility]/pharmacy #[id number], 1 capsule By Mouth Daily, 159, cm, 10/05/21 13:26:00 EST, Height, 78, kg, 01/01/21 16:06:00 EDT, Dry Weight Start Date: 10/18/21 Status: Ordered NuLYTELY with Flavor Packs oral powder for reconstitution 240 mL, By Mouth, Every 10 minutes, # 1 each, 0 Refills, Maintenance, 09/21/21 9:33:00 EST, REC Powder, [facility], Partial fill upon patient request if the prescription is for a schedule II opioid drug., 240 mL By Mouth Every 10 minut... Start Date: 09/21/21 Status: Ordered omeprazole 40 mg oral enteric coated capsule 1 capsule = 40 mg, By Mouth, 2 times a day, # 60 capsule, 2 Refills, Maintenance, 04/13/21 10:31:00EDT, EC Capsule, [facility]/pharmacy #[id number], Partial fill upon patient request if [...] Mouth, Daily, at night (print label in [place]ong [place]ong[place]), # 30 capsule, Refills 1, Tot. Refills 1, Maintenance, 09/28/21 14:03:00 EST, Route to Pharmacy Electronically, [facility], Partial fill upon patient request if the... Start Date: 09/28/21 Status: Ordered Tears Naturale Forte preserved ophthalmic solution 1 drops, Eyes, Both, 2 times a day, PRN for dry eyes, # 30 mL, 0 Refills, Maintenance, 08/28/21 14:52:00 EST, Solution, [facility]/pharmacy #[id number], Partial fill upon patient request if the prescription is for a schedule II opioid drug., 1 drops Eyes, Both 2 t... Start Date: 08/28/21 Status: Ordered tiZANidine 2 mg oral capsule 1 capsule = 2 mg, By Mouth, 3 times a day, PRN as needed for muscle spasm, # 9 capsule, 0 Refills, Maintenance, 04/28/21 17:18:00 EDT, Capsule, [facility]/pharmacy #[id number], hong konger labeling, 159, cm, 04/28/2115:46:00 EDT, Height, 78, kg, 01/01/21 16:06:00 EDT... Start Date: 04/28/21 Stop Date: 05/01/21 Status: Ordered Tums 500 mg oral tablet, chewable 500 mg, 1, tablet, Chew, 2 times a day, # 60 tablet, Refills 5, Tot. Refills 5, Maintenance, 12/16/20 14:32:00 EST, Route to Pharmacy Electronically, [facility]/pharmacy #[id number], 159, cm, 12/16/20 13:47:00 EST, Height, 74.1, kg, 10/20/20 16:18:00 EST, Dry Weight Start Date: 12/16/20 Status: Ordered Problem List Condition Effective Dates Status Health Status Inform ant Hematuria(Confirmed) 1 Active Chronic back pain(Confirmed) Active Dyslipidemia(Confirmed) Active h/o allergic rhinitis(Confirmed) Active Illiteracy(Confirmed) Active Dyspepsia(Confirmed) Active Disc displacement(Confirmed) Active Onychomycosis(Confirmed) Active *[facility]/CC-Patricia [phone]/Health Skilled Nursing, Active Care Coordination(Confirmed) Active Muscle spasm(Confirmed) Active Tubular adenoma of colon - d ue 2021(Confirmed) 2 11/2015 Active 1lul -2014, had cystoscopy 2014 Social History Social History Type Response Smoking Status Never smoker entered on: 08/23/16 Sex
--- OUTSIDE RECORDS SUMMARY | 2023-06-10 06:26 | XMS_ITS | Continuity of Care Document ---
Author Name Unknown Organization [facility] Address [address] [place] [address]- Care Team Providers Care Aurist Name Role Phone Raiza KRISHNA, [place] Primary Care Physician [phone] [place] [facility] [place] [facility] [address] [place], [place] [address] Attending Physician: Lloyd Santiago MD Admitting Physician: [...] 10/12/10 Given 1Admin Note: VIS given 05/30/10, Georgian form 2Admin Note: VIS given, 08/2008, Georgian form Medications amLODIPine 2.5 mg oral tablet 2.5 mg, 1, tablet, By Mouth, Daily, ; STOP amlodipine 5 mg. use this dose instead., # 30 tablet, Refills 11, Tot. Refills 11, Maintenance, 11/22/20 16:52:00 EST, Route to Pharmacy Electronically, [facility]/pharmacy #[id number], label all scripts in [place],... Start Date: 11/22/20 Stop Date: 11/17/21 Status: Ordered azelastine 0.05% ophthalmic solution 1 drops, Eyes, Both, 2 times a day, PRN for allergy symptoms, # 6 mL, 6 Refills, Maintenance, 01/13/21 14:54:00 EDT, [facility]/pharmacy #[id number], Label in Georgian, 1 drops Eyes, Both 2 times a day,PRN:for allergy symptoms, 159, cm, 01/04/21 9:23:00 EDT, Height... Start Date: 01/13/21 Status: Ordered diclofenac 3% topical gel 1 application, Topically, 2 times a day, # 100 Gm, 0 Refills, Maintenance, 04/28/21 17:22:00 EDT, Gel, [facility]/pharmacy #[id number], Partial fill upon patient request if the prescription is for a schedule II opioid drug., 1 application Topically 2 times a day,... Start Date: 04/28/21 Status: Ordered Flonase 50 mcg/inh nasal spray 1 sprays, Nares, Both, Daily, # 16 Gm, 1 Refills, Maintenance, 06/16/20 18:04:00 EDT, [place], [facility]/pharmacy #[id number], 159, cm, 06/08/20 13:31:00 EDT, Height Start Date: 06/16/20 Status: Ordered multivitamin Multiple Vitamins oral capsule 1 capsule, By Mouth, Daily, # 90 capsule, 1 Refills, Maintenance, 02/06/21 14:59:00 EDT, Capsule, [facility]/pharmacy #[id number], 1 capsule By Mouth Daily, 159, cm, 01/04/21 9:23:00 EDT, Height, 78, kg, 01/02/2116:06:00 EDT, Dry Weight Start Date: 02/06/21 Status: Ordered omeprazole 40 mg oral enteric coated capsule 1 capsule = 40 mg, By Mouth, 2 times a day, # 60 capsule, 2 Refills, Maintenance, 04/13/21 10:31:00EDT, EC Capsule, [facility]/pharmacy #[id number], Partial fill upon patient [...] Refills, Maintenance, 04/28/21 17:18:00 EDT, Capsule, [facility]/pharmacy #[id number], prydeinig labeling, 159, cm, 04/28/2115:46:00 EDT, Height, 78, kg, 01/01/21 16:06:00 EDT... Start Date: 04/28/21 Stop Date: 05/01/21 Status: Ordered Tums 500 mg oral tablet, chewable 500 mg, 1, tablet, Chew, 2 times a day, # 60 tablet, Refills 5, Tot. Refills 5, Maintenance, 12/16/20 14:32:00 EST, Route to Pharmacy Electronically, [facility]/pharmacy #[id number], 159, cm, 12/16/20 13:47:00 EST, Height, 74.1, kg, 10/20/20 16:18:00 EST, Dry Weight Start Date: 12/16/20 Status: Ordered Problem List Condition Effective Dates Status Health Status Inform ant Hematuria(Confirmed) 1 Active Chronic back pain(Confirmed) Active Dyslipidemia(Confirmed) Active h/o allergic rhinitis(Confirmed) Active Illiteracy(Confirmed) Active Dyspepsia(Confirmed) Active Disc displacement(Confirmed) Active Onychomycosis(Confirmed) Active [facility]/CC-Serena Purcell-[phone]/Health Nursing Home, Active Care Coordination(Confirmed) Active Muscle spasm(Confirmed) Active Tubular adenoma of colon - d ue 2021(Confirmed) 2 11/2015 Active 1, gross 2-2014, had cystoscopy 2014 Social History Social History Type Response Smoking Status Never smoker entered on: 08/23/16 Sex
--- OUTSIDE RECORDS SUMMARY | 2023-06-10 06:26 | XMS_ITS | Continuity of Care Document ---
Author Name Unknown Organization [facility] Address [address] [place] [address]- Care Team Providers Care Courier Driver Name Role Phone [place] Eastman MD Primary Care Physician En[place] [facility] [place] Date(s): 07/21/21 - 08/20/21 [facility] [address] [place] [id number]- Attending Physician: Viky Garcia Admitting Physician: Viky Garcia Referring Physician: AdmtrViky Allergies, Adverse Reactions, Alerts Substance Reaction Severity [...] 10/12/10 Given 1Admin Note: VIS given 05/30/10, Indonesian form 2Admin Note: VIS given, 08/2008, Indonesian form Medications amLODIPine 2.5 mg oral tablet 2.5 mg, 1, tablet, By Mouth, Daily, ; STOP amlodipine 5 mg. use this dose instead., # 30 tablet, Refills 11, Tot. Refills 11, Maintenance, 11/22/20 16:52:00 EST, Route to Pharmacy Electronically, [facility]/pharmacy #[id number], label all scripts in [place],... Start Date: 11/22/20 Stop Date: 11/17/21 Status: Ordered azelastine 0.05% ophthalmic solution 1 drops, Eyes, Both, 2 times a day, PRN for allergy symptoms, # 6 mL, 6 Refills, Maintenance, 01/13/21 14:54:00 EDT, [facility]/pharmacy #[id number], Label in Indonesian, 1 drops Eyes, Both 2 times a [...] Gm, 1 Refills, Maintenance, 06/16/20 18:04:00 EDT, [id number], 159, cm, 06/08/20 13:31:00 EDT, [...] 0 Refills, Maintenance, 04/28/21 17:18:00 EDT, Capsule, [facility]/pharmacy #[id number], chinese labeling, 159, cm, 04/28/2115:46:00 EDT, Height, 78, kg, 01/01/21 16:06:00 EDT... Start Date: 04/28/21 Stop Date: 05/01/21 Status: Ordered Tums 500 mg oral tablet, chewable 500 mg, 1, tablet, Chew, 2 times a day, # 60 tablet, Refills 5, Tot. Refills 5, Maintenance, 12/16/20 14:32:00 EST, Route to Pharmacy Electronically, [facility]/pharmacy #[id number], 159, cm, 12/16/20 13:47:00 EST, Height, 74.1, kg, 10/20/20 16:18:00 EST, Dry Weight Start Date: 12/16/20 Status: Ordered Problem List Condition Effective Dates Status Health Status Inform ant Hematuria(Confirmed) 1 Active Chronic back pain(Confirmed) Active Dyslipidemia(Confirmed) Active h/o allergic rhinitis(Confirmed) Active Illiteracy(Confirmed) Active Dyspepsia(Confirmed) Active Disc displacement(Confirmed) Active Onychomycosis(Confirmed) Active [facility]/CC-Serena Purcell-[phone]/Health Skilled Nursing, Active Care Coordination(Confirmed) Active Muscle spasm(Confirmed) Active Tubular adenoma of colon - d ue 2021(Confirmed) 2 11/2015 Active 1lul 2-2014, had cystoscopy 2014 Social History Social History Type Response Smoking Status Never smoker entered on: 08/23/16 Sex
--- OUTSIDE RECORDS SUMMARY | 2023-06-10 06:26 | XMS_ITS | Continuity of Care Document ---
Author Name Unknown Organization [facility] Address [address] [place] [address]- Care Team Providers Care Director Of Workforce Development Name Role Phone Raiza KRISHNA, Trenton Primary Care Physician [facility]counter [facility] Date(s): 09/06/22 - 10/06/22 [facility] [address] [place] [id number] Allergies, Adverse Reactions, Alerts Substance Reaction Severity Status penicillins Superficial gravel r endi Itching Active Immunizations Given and Recorded Vaccine Date Status Refusal Reason SARS-CoV-2 mRNA ([id number]) vax 06/13/22 Recorded SARS-CoV-2 (COVID-19) mRNA BNT-162b2 [...] 10/12/10 Given 1Admin Note: VIS given 05/30/10, Albanian form 2Admin Note: VIS given, 08/2008, Albanian form Medications amLODIPine 2.5 mg oral tablet 1 tablet, By Mouth, Daily, USE THIS DOSE INSTEAD., # 90 tablet, 5 Refills, [id number], 157.5, cm, 04/10/22 10:29:00 EDT, Height, 75, kg, 03/25/22 2:00:00 EDT, Dry Weight Start Date: 05/04/22 Status: Ordered Artificial Tears preserved solution 1 drops, Eyes, Both, 2 times a day, PRN for dry eyes, # 30 mL, 0 Refills, Maintenance, 09/06/22 10:24:00 EST, Solution, [facility]/pharmacy #[id number], Partial fill upon patient request if the prescription is for a schedule II opioid drug., 1 drops Eyes, Both 2 t... Start Date: 09/06/22 Status: Ordered azelastine 0.05% ophthalmic solution 1 drops, Eyes, Both, 2 times a day, PRN for allergy symptoms, For eye allergies, # 6 mL, 6 Refills,Maintenance, 02/28/22 16:27:00 EDT, [facility]/pharmacy #[id number], Label in Albanian, 1 drops Eyes, Both 2 times a day,PRN:for allergy symptoms,Instr:For eye aller... Start Date: 02/28/22 Status: Ordered azelastine 137 mcg/inh (0.1%) nasal spray 0 Refills, Maintenance, 12/07/21 11:16:00 EST, via Dr Glover, repairer controller tester Start Date: 12/07/21 Status: Ordered baclofen 10 mg oral tablet See Instructions, TOME JOAN TABLETA POR VIA ORAL KARLA BERRY AL MONICA, # 63 tablet, Refills 0, Instructions Replace Required Details, Route to Pharmacy Electronically, [facility] [id number], 157.5, cm, 04/10/22 10:29:00 EDT, Height, 75, [...] 1 Refills, Maintenance, 08/28/21 14:44:00 EST, Solution, [facility]/pharmacy #[id number], Partial fill upon patient request if the prescription is for... Start Date: 08/28/21 Status: Ordered ciclopirox topical 0.77% suspension 1 application, Topically, 2 times a day, Print instructions in swazi, # 60 mL, 1 Refills, Maintenance, 07/11/22 11:00:00 EDT, Suspension, [facility]/pharmacy #[id number], Partial fill upon patient request if the prescription is for a schedule II opioid drug., 1... Start Date: 07/11/22 Status: Ordered clotrimazole 1% topical cream 1 application, Topically, 2 times a day, Print instructions in swazi Apply to groin area, face, and also in between digits on both feet, # 100 Gm, 0 Refills, Maintenance, 07/11/22 11:00:00 EDT, Cream, [facility]/pharmacy #[id number], Partial fill upon patient r... Start Date: 07/11/22 Status: Ordered [facility] LUBRICANT EYE DROPS Maintenance, 12/07/21 11:16:00 EST, via Dr Glover, repairer controller tester, Supply Start Date: 12/07/21 Status: Ordered cyclobenzaprine 5 mg oral tablet 0 Refills, Maintenance, 09/28/21 13:55:00 EST, Partial fill upon patient request if the prescription is for a schedule II opioid drug. Start Date: 09/28/21 Status: Ordered diclofenac 3% topical gel 1 application, Topically, 2 times a day, # 100 Gm, 0 Refills, Maintenance, 04/28/21 17:22:00 EDT, Gel, [facility]/pharmacy #[id number], Partial fill upon patient request [...] 2 Refills, Maintenance, 06/24/22 12:04:00 EDT, Tablet, [facility]/pharmacy #[id number], Partial fill upon patient request if the prescription is for a schedule... Start Date: 06/24/22 Stop Date: 09/22/22 Status: Ordered Flonase 50 mcg/inh nasal spray 1 sprays, Nares, Both, Daily, # 16 Gm, 1 Refills, Maintenance, 11/30/21 10:55:00 EST, [place], [facility]/pharmacy #[id number], 1 sprays Nares, Both Daily, 159, cm, 11/30/21 9:50:00 EST, Height, 78, kg, 01/01/21 16:06:00 EDT, Dry Weight Start Date: 11/30/21 Status: Ordered loratadine 10 mg oral tablet 10 mg, 1, tablet, By Mouth, Daily, # 30 tablet, Refills 5, Tot. Refills 5, Maintenance, 12/18/21 10:54:00 EST, Route to Pharmacy Electronically, [facility]/pharmacy #[id number], Partial fill upon patient request if the prescription is for a schedule II opioid drug... Start Date: 12/18/21 Status: Ordered LUBRICNT EYE JESSICA 0.4-0.3% Maintenance, 12/07/21 11:16:00 EST, via Dr Glover, repairer controller tester, Supply Start Date: 12/07/21 Status: Ordered minoxidil 2% topical solution 1 mL = 0.02 Gm, Topically, 2 times a day, # 60 mL, 2 Refills, Maintenance, 02/28/22 16:27:00 EDT, Solution, [facility]/pharmacy #[id number], Partial fill upon patient request if the prescription is for a scheduleII opioid drug., 1 mL Topically 2 times a day, 159,... Start Date: 02/28/22 Status: Ordered multivitamin Multiple Vitamins oral capsule 1 capsule, By Mouth, Daily, # 90 capsule, 1 Refills, Maintenance, 09/12/22 9:06:00 EST, Capsule, [facility]/pharmacy #[id number], 1 capsule By Mouth Daily, 162.56, cm, 09/10/22 9:07:00 EST, Height, 76.5, kg, 06/12/22 13:23:00 EDT, Dry Weight Start Date: 09/12/22 Status: Ordered Mylanta Maximum Strength Blanco oral suspension 5 mL, By Mouth, 4 times a day, PRN for control of stomach acid, # 200 mL, 2 Refills, Maintenance, 09/06/22 10:23:00 EST, Suspension, [facility]/pharmacy #[id number], Partial fill upon patient request if the prescription is for a schedule II opioid drug., 5 mL By M... Start Date: 09/06/22 Status: Ordered NuLYTELY with Flavor Packs oral powder for reconstitution 240 mL, By Mouth, Every 10 minutes, # 1 each, 0 Refills, Maintenance, 09/21/21 9:33:00 EST, REC Powder, [facility]., Partial fill upon patient request if the prescription is for a schedule II opioid drug., 240 mL By Mouth Every 10 minut... Start Date: 09/21/21 Status: Ordered NuLYTELY with Flavor Packs oral powder for reconstitution See Instructions, per GI office, # 4,000 mL, 0 Refills, Maintenance, 06/11/22 9:43:00 EDT, [facility]/pharmacy #[id number], Partial fill upon patient request if the prescription is for a schedule II opioid drug.,per GI office, 157.5, cm, 04/10/22 10:29:00 EDT, He... Start Date: 06/11/22 Status: Ordered Win[place]-3 1000 mg oral capsule via psychiatry, 0 Refills, Maintenance, 12/07/21 11:13:00 EST, Partial fill upon patient request ifthe prescription is for a schedule II opioid drug. Start Date: 12/07/21 Status: Ordered omeprazole 40 mg oral enteric coated capsule See Instructions, JUAN RAMON ARTA DOS VECES AL MONICA, # 180 capsule, 1 Refills, Maintenance, 09/05/22 10:55:00 EST, [facility] [id number], 162.56, cm, 07/12/22 10:42:00 EDT, Height, 76.5, kg, 06/12/22 13:23:00 EDT, Dry Weight Start Date: 09/05/22 Status: Ordered Lynette-Colace 50 mg-8.6 mg oral tablet 2 tablet, By Mouth, Daily at bedtime, PRN Constipation, For constipation, # 60 tablet, 0 Refills, Maintenance, 01/02/22 20:52:00 EDT, Tablet, [facility]/pharmacy #[id number], Partial fill upon patient request [...] mL, 4 Refills, Maintenance, 02/28/22 16:09:00 EDT, [place], [facility]/pharmacy #[id number], Partial fill upon patient request if the prescription is for a schedule II opioid drug., 1 sprays N... Start Date: 02/28/22 Status: Ordered tamsulosin 0.4 mg oral capsule 0.4 mg, 1, capsule, By Mouth, Daily, at night (print label in swazi), # 30 capsule, Refills 1, Tot. Refills 1, Maintenance, 09/28/21 14:03:00 EST, Route to Pharmacy Electronically, [facility], Partial fill upon patient request if the... Start Date: 09/28/21 Status: Ordered Tears Naturale Forte preserved ophthalmic solution 1 drops, Eyes, Both, 2 times a day, PRN for dry eyes, # 30 mL, 0 Refills, Maintenance, 08/28/21 14:52:00 EST, Solution, [facility]/pharmacy #[id number], Partial fill upon patient request if the prescription is for a schedule II opioid drug., 1 drops Eyes, Both 2 t... Start Date: 08/28/21 Status: Ordered tiZANidine 2 mg oral capsule 1 capsule = 2 mg, By Mouth, 3 times a day, PRN as needed for muscle spasm, # 9 capsule, 0 Refills, Maintenance, 04/28/21 17:18:00 EDT, Capsule, [facility]/pharmacy #[id number], swazi labeling, 159, cm, 04/28/2115:46:00 EDT, Height, 78, kg, 01/01/21 16:06:00 EDT... Start Date: 04/28/21 Stop Date: 05/01/21 Status: Ordered Tums 500 mg oral tablet, chewable 500 mg, 1, tablet, Chew, 2 times a day, # 60 tablet, Refills 5, Tot. Refills 5, Maintenance, 12/16/20 14:32:00 EST, Route to Pharmacy Electronically, [facility]/pharmacy #[id number], 159, cm, 12/16/20 13:47:00 EST, [...] Confirmed Active Onychomycosis Confirmed Active *N/[facility]/CC-Mary a [id number]/[facility], Active Care Coordination Confirmed Active Nasal septum perforation, h/o cocaine Confirmed Active Muscle spasm Confirmed Active Tubular adenoma of colon - due 2021 2 Confirmed 11/2015 Active 1, gross 2-2014, had cystoscopy 2014 Social History Social History Type Response Smoking Status Never smoker entered on: 08/23/16 Sex Patient Care team information Care Team Personnel Name: Trenton Eastman MD Position: [facility] Resident Member Role: PCP Address: Address: [address] [place] [address] [place] [address]- Care Team Related Persons Name: AJAY [place] Address: [place] [address] Name: KAMALJIT FUCHS Address: home [address] [place] [id number]
--- OUTSIDE RECORDS SUMMARY | 2023-06-10 06:26 | XMS_ITS | Continuity of Care Document ---
Author Name Unknown Organization [facility] y Address [address] [place] [address]- Care Team Providers Care Payroll Human Resources Assistant Name Role Phone Bebe KRISHNA, Hugh Primary Care Physician [phone] Encounter [facility] [place] Date(s[place] 01/04/21 - 02/03/21 [facility] [address] [place], [place] [address] Attending Physician: Viky Garcia Admitting Physician: AdmtrViky Referring Physician: AdmtrViky Allergies, Adverse Reactions, Alerts [...] 10/12/10 Given 1Admin Note: VIS given 05/30/10, Trinidadian form 2Admin Note: VIS given, 08/2008, Trinidadian form Medications amLODIPine 2.5 mg oral tablet 2.5 mg, 1, tablet, By Mouth, Daily, ; STOP amlodipine 5 mg. use this dose instead., # 30 tablet, Refills 11, Tot. Refills 11, Maintenance, 11/22/20 16:52:00 EST, Route to Pharmacy Electronically, [facility]/pharmacy #[id number], label all scripts in ROMANIAN,... Start Date: 11/22/20 Stop Date: 11/17/21 Status: Ordered azelastine 0.05% ophthalmic solution 1 drops, Eyes, Both, 2 times a day, PRN for allergy symptoms, # 6 mL, 6 Refills, Maintenance, 01/13/21 14:54:00 EDT, [facility]/pharmacy #[id number], Label in Trinidadian, 1 drops Eyes, Both 2 times a day,PRN:for allergy symptoms, 159, cm, 01/04/21 9:23:00 EDT, Height... Start Date: 01/13/21 Status: Ordered diclofenac 1% topical gel 1 application, Topically, 4 times a day, not to exceed 32 grams/day, # 100 Gm, 2 Refills, Maintenance, 12/12/20 11:17:00 EST, Gel, [facility]/pharmacy #[id number], Label in Trinidadian please, 159, cm, 12/12/20 10:33:00 EST, Height, 74.1, kg, 10/20/20 16:18:00 EST, Dr... Start Date: 12/12/20 Status: Ordered Flonase 50 mcg/inh nasal spray 1 sprays, Nares, Both, Daily, # 16 Gm, 1 Refills, Maintenance, 06/16/20 18:04:00 EDT, [place], [facility]/pharmacy #[id number], 159, cm, 06/08/20 13:31:00 EDT, Height Start Date: 06/16/20 Status: Ordered multivitamin Multiple Vitamins oral capsule 1 capsule, By Mouth, Daily, # 90 capsule, 11 Refills, Maintenance, 08/12/20 11:32:00 EDT, Capsule, [facility]/pharmacy #[id number], 1 capsule By Mouth Daily, 159, cm, 07/27/20 13:20:00 EDT, Height Start Date: 08/12/20 Status: Ordered omeprazole 40 mg oral enteric coated capsule 1 capsule = 40 mg, By Mouth, 2 times a day, # 60 capsule, 0 Refills, Maintenance, 12/13/20 12:59:00EST, EC Capsule, [facility]/pharmacy #[id number], Partial fill upon patient request if the prescription is for aschedule II opioid drug., 159, cm, 12/12/20 10:33:0... Start Date: 12/13/20 Stop Date: 01/12/21 Status: Ordered omeprazole 40 mg oral enteric coated capsule 1 capsule = 40 mg, By Mouth, 2 times a day, # 60 capsule, 4 Refills, Maintenance, 10/05/20 14:48:00EST, EC Capsule, [facility]/pharmacy #[id number], Partial fill upon patient request [...] EST, Route to Pharmacy Electronically, [facility]/pharmacy #[id number], 159, cm, 12/16/20 13:47:00 EST, Height, 74.1, kg, 10/20/20 16:18:00 EST, Dry Weight Start Date: 12/16/20 Status: Ordered Tylenol 8 HR Arthritis Pain 650 mg oral tablet, extended release 1 tablet = 650 mg, By Mouth, Every 8 hours, # 100 tablet, 1 Refills, Acute 12/05/21 9:00:00 EST, 12/05/20 15:26:00 EST, ER Tablet, [facility]/pharmacy #[id number], 159, cm, 07/27/20 13:20:00 EDT, Height, 74.1, kg, 10/20/20 16:18:00 EST, Dry Weight Start Date: 12/05/20 Stop Date: 12/05/21 Status: Ordered Problem List Condition Effective Dates Status Health Status Inform ant Hematuria(Confirmed) 1 Active Chronic back pain(Confirmed) Active Dyslipidemia(Confirmed) Active h/o allergic rhinitis(Confirmed) Active Illiteracy(Confirmed) Active Dyspepsia(Confirmed) Active Disc displacement(Confirmed) Active [facility]/CC-Serena Purcell-[phone]/[facility], Active Care Coordination(Confirmed) Active Tubular adenoma of colon - d ue 2021(Confirmed) 2 11/2015 Active 1, gross 2-2014, had cystoscopy 2014 Social History Social History Type Response Smoking Status Never smoker entered on: 08/23/16 Sex
--- OUTSIDE RECORDS SUMMARY | 2023-06-10 06:26 | XMS_ITS | Continuity of Care Document ---
Author Name Unknown Organization [facility] Address [address] [place] [address]- Care Team Providers Care Aircraft Instrument Tester Name Role Phone Trenton Eastman MD Primary Care Physician [phone] [place] [facility] [place] 12/28[place]21 - 01/27/22 [facility] [address] [place] [id number] Allergies, Adverse Reactions, [...] 10/12/10 Given 1Admin Note: VIS given 05/30/10, Sudanese form 2Admin Note: VIS given, 08/2008, Sudanese form Medications amLODIPine 2.5 mg oral tablet 2.5 mg, 1, tablet, By Mouth, Daily, ; STOP amlodipine 5 mg. use this dose instead., # 30 tablet, Refills 5, Tot. Refills 5, Maintenance, 11/17/21 16:52:00 EST, Route to Pharmacy Electronically,[facility]/pharmacy #[id number], label all scripts in [place], 1... Start Date: 11/17/21 Stop Date: 05/16/22 Status: Ordered azelastine 0.05% ophthalmic solution 1 drops, Eyes, Both, 2 times a day, PRN for allergy symptoms, For eye allergies, # 6 mL, 6 Refills,Maintenance, 12/18/21 10:53:00 EST, [facility]/pharmacy #[id number], Label in Sudanese, 1 drops Eyes, Both 2 times a day,PRN:for allergy symptoms,Instr:For eye aller... Start Date: 12/18/21 Status: Ordered azelastine 137 mcg/inh (0.1%) nasal spray 0 Refills, Maintenance, 12/07/21 11:16:00 EST, via Dr Glover, thinner sprayer Start Date: 12/07/21 Status: Ordered buPROPion 150 [...] 1 Refills, Maintenance, 08/28/21 14:44:00 EST, Solution, [facility]/pharmacy #[id number], Partial fill upon patient request if the prescription is for... Start Date: 08/28/21 Status: Ordered [facility] DROPS Maintenance, 12/07/21 11:16:00 EST, via Dr Glover, thinner sprayer, Supply Start Date: 12/07/21 Status: Ordered cyclobenzaprine [...] Gm, 1 Refills, Maintenance, 11/30/21 10:55:00 EST, [place], [facility]/pharmacy #[id number], 1 [...] Maintenance, 12/07/21 11:16:00 EST, via Dr Glover, thinner sprayer, Supply Start Date: 12/07/21 Status: Ordered multivitamin Multiple Vitamins oral capsule 1 capsule, By Mouth, Daily, # 90 capsule, 0 Refills, Maintenance, 10/18/21 22:09:00 EST, Capsule, [facility]/pharmacy #[id number], 1 capsule By Mouth Daily, 159, cm, 10/05/21 13:26:00 EST, Height, 78, kg, 01/01/21 16:06:00 EDT, Dry Weight Start Date: 10/18/21 Status: Ordered NuLYTELY with Flavor Packs oral powder for reconstitution 240 mL, By Mouth, Every 10 minutes, # 1 each, 0 Refills, Maintenance, 09/21/21 9:33:00 EST, REC Powder[facility] Partial fill upon patient request if the prescription is for a schedule II opioid drug., 240 mL By Mouth Every 10 minut... Start Date: 09/21/21 Status: Ordered [place]-3 1000 mg oral capsule via psychiatry, 0 Refills, Maintenance, 12/07/21 11:13:00 EST, Partial fill upon patient request ifthe prescription is for a schedule II opioid drug. Start Date: 12/07/21 Status: Ordered omeprazole 40 mg oral enteric coated capsule 1 capsule = 40 mg, By Mouth, 2 times a day, # 60 capsule, 2 Refills, Maintenance, 04/13/21 10:31:00EDT, EC Capsule, [facility]/pharmacy #[id number], Partial [...] Mouth, Daily, at night (print label in divehi), # 30 capsule, Refills 1, Tot. Refills 1, Maintenance, 09/28/21 14:03:00 EST, Route to Pharmacy Electronically, [facility], Partial fill upon patient request [...] Capsule, [facility]/pharmacy #[id number], divehi labeling, 159, cm, 04/28/2115:46:00 EDT, Height, 78, [...] class I(Confirmed) Active Onychomycosis(Confirmed) Active *[facility]/CC-Patricia [phone]/[facility], Active Care Coordination(Confirmed) Active Nasal septum perforation, h/ o cocaine(Confirmed) Active Muscle spasm(Confirmed) Active Tubular adenoma of colon - d ue 2021(Confirmed) 2 11/2015 Active 1lul 2-2014, had cystoscopy 2014 Social History Social History Type Response Smoking Status Never smoker entered on: 08/23/16 Sex
--- OUTSIDE RECORDS SUMMARY | 2023-06-10 06:26 | XMS_ITS | Continuity of Care Document ---
Author Name Unknown Organization [facility] Address [address] [place] [address]- Care Team Providers Care Auto Rental Clerk Name Role Phone Trenton Eastman MD Primary Care Physician [phone] Encounter [facility] Date(s): 07/17/21 - 08/16/21 [facility] [address] [place], [place] [address] Allergies, Adverse Reactions, Alerts [...] 1Admin Note: VIS given 05/30/10, Citizen Of [place] form 2Admin Note: VIS given, 08/2008, Citizen Of [place] form Medications amLODIPine 2.5 mg oral tablet 2.5 mg, 1, tablet, By Mouth, Daily, ; STOP amlodipine 5 mg. use this dose instead., # 30 tablet, Refills 11, Tot. Refills 11, Maintenance, 11/22/20 16:52:00 EST, Route to Pharmacy Electronically, [facility]/pharmacy #[id number], label all scripts in ANGOLAN,... Start Date: 11/22/20 Stop Date: 11/17/21 Status: Ordered azelastine 0.05% ophthalmic solution 1 drops, Eyes, Both, 2 times a day, PRN for allergy symptoms, # 6 mL, 6 Refills, Maintenance, 01/13/21 14:54:00 EDT, [facility]/pharmacy #[id number], Label in [place] Of [place], 1 drops Eyes, Both 2 times a [...] Gm, 1 Refills, Maintenance, 06/16/20 18:04:00 EDT, [place], [facility]/pharmacy #[id number], 159, cm, 06/08/20 13:31:00 EDT, Height Start Date: 06/16/20 Status: Ordered multivitamin Multiple Vitamins oral capsule 1 capsule, By Mouth, Daily, # 90 capsule, 1 Refills, Maintenance, 02/06/21 14:59:00 EDT, Capsule, [facility]/pharmacy #[id number], 1 capsule By Mouth Daily, 159, cm, 01/04/21 9:23:00 EDT, Height, 78, kg, 01/02/2116:06:00 EDT, Dry Weight Start Date: 02/06/21 Status: Ordered omeprazole 40 mg oral enteric coated capsule 1 capsule = 40 mg, By Mouth, 2 times a day, # 60 capsule, 2 Refills, Maintenance, 04/13/21 10:31:00EDT, EC Capsule, [facility]/pharmacy #[id number], [...] EDT, Capsule, [facility]/pharmacy #[id number], gabonese labeling, 159, cm, 04/28/2115:46:00 EDT, Height, 78, [...] Active Disc displacement(Confirmed) Active Onychomycosis(Confirmed) Active [facility]/CC-Serena Purcell-[phone]/[facility], Active Care Coordination(Confirmed) Active Muscle spasm(Confirmed) Active Tubular adenoma of colon - d ue 2021(Confirmed) 2 11/2015 Active 1, gross 2-2014, had cystoscopy 2014 Social History Social History Type Response Smoking Status Never smoker entered on: 08/23/16 Sex
--- OUTSIDE RECORDS SUMMARY | 2023-06-10 06:26 | XMS_ITS | Continuity of Care Document ---
Author Name Unknown Organization [facility] Address [address] [place] [address]- Care Team Providers Care Greenhouse Superintendent Name Role Phone Trenton Eastman MD Primary Care Physician [phone] Encounter [facility] Date(s): 03/28/21 - 05/26/21 [facility] [address], [place] [address] Attending Physician: [...] 10/12/10 Given 1Admin Note: VIS given 05/30/10, Austrian form 2Admin Note: VIS given, 08/2008, Austrian form Medications amLODIPine 2.5 mg oral tablet 2.5 mg, 1, tablet, By Mouth, Daily, ; STOP amlodipine 5 mg. use this dose instead., # 30 tablet, Refills 11, Tot. Refills 11, Maintenance, 11/22/20 16:52:00 EST, Route to Pharmacy Electronically, [facility]/pharmacy #[id number], label all scripts in EMIRATI,... Start Date: 11/22/20 Stop Date: 11/17/21 Status: Ordered azelastine 0.05% ophthalmic solution 1 drops, Eyes, Both, 2 times a day, PRN for allergy symptoms, # 6 mL, 6 Refills, Maintenance, 01/13/21 14:54:00 EDT, [facility]/pharmacy #[id number], Label in Austrian, 1 drops Eyes, Both 2 times a day,PRN:for allergy symptoms, 159, cm, 01/04/21 9:23:00 EDT, Height... Start Date: 01/13/21 Status: Ordered diclofenac 3% topical gel 1 application, Topically, 2 times a day, # 100 Gm, 0 Refills, Maintenance, 04/28/21 17:22:00 EDT, Gel, [facility]/pharmacy #[id number], Partial fill upon patient request if the prescription is for a schedule II opioid drug., 1 application Topically 2 times a day,... Start Date: 04/28/21 Status: Ordered Flonase 50 mcg/inh nasal spray 1 sprays, Nares, Both, Daily, # 16 Gm, 1 Refills, Maintenance, 06/16/20 18:04:00 EDT, [place], [facility]/pharmacy #[id number], 159, cm, 06/08/20 13:31:00 EDT, Height Start Date: 06/16/20 Status: Ordered multivitamin Multiple Vitamins oral capsule 1 capsule, By Mouth, Daily, # 90 capsule, 1 Refills, Maintenance, 02/06/21 14:59:00 EDT, Capsule, [facility]/pharmacy #[id number], 1 capsule By Mouth Daily, 159, cm, 01/04/21 9:23:00 EDT, Height, 78, kg, 01/02/2116:06:00 EDT, Dry Weight Start Date: 02/06/21 Status: Ordered omeprazole 40 mg oral enteric coated capsule 1 capsule = 40 mg, By Mouth, 2 times a day, # 60 capsule, 2 Refills, Maintenance, 04/13/21 10:31:00EDT, EC Capsule, [facility]/pharmacy #[id number], Partial fill upon patient request [...] Refills, Maintenance, 04/28/21 17:18:00 EDT, Capsule, [facility]/pharmacy #[id number], somali labeling, 159, cm, 04/28/2115:46:00 EDT, Height, 78, kg, 01/01/21 16:06:00 EDT... Start Date: 04/28/21 Stop Date: 05/01/21 Status: Ordered Tums 500 mg oral tablet, chewable 500 mg, 1, tablet, Chew, 2 times a day, # 60 tablet, Refills 5, Tot. Refills 5, Maintenance, 12/16/20 14:32:00 EST, Route to Pharmacy Electronically, [facility]/pharmacy #[id number], 159, cm, 12/16/20 13:47:00 EST, Height, 74.1, kg, 10/20/20 16:18:00 EST, Dry Weight Start Date: 12/16/20 Status: Ordered Problem List Condition Effective Dates Status Health Status Inform ant Hematuria(Confirmed) 1 Active Chronic back pain(Confirmed) Active Dyslipidemia(Confirmed) Active h/o allergic rhinitis(Confirmed) Active Illiteracy(Confirmed) Active Dyspepsia(Confirmed) Active Disc displacement(Confirmed) Active Onychomycosis(Confirmed) Active BHN/ONECARE/CC-Serena Purcell-[phone]/[facility], Active Care Coordination(Confirmed) Active Muscle spasm(Confirmed) Active Tubular adenoma of colon - d ue 2021(Confirmed) 2 11/2015 Active 1lul 2-2014, had cystoscopy 2014 Social History Social History Type Response Smoking Status Never smoker entered on: 08/23/16 Sex
--- OUTSIDE RECORDS SUMMARY | 2023-06-10 06:26 | XMS_ITS | Continuity of Care Document ---
Author Name Unknown Organization [facility] Address [address] [place] [address]- Care Team Providers Care Network Consultant Name Role Phone Raiza KRISHNA, Trenton Primary Care Physician Encounter [facility] Date(s): 01/15/23 - 02/14/23 [facility] [address] [place] [id number] Allergies, Adverse [...] inactivated 1 10/12/10 Gi jocy SARS-CoV-2 mRNA ([id number]) vax 06/13/22 Recorded SARS-CoV-2 (COVID-19) mRNA BNT-162b2 vac 09/13/21 Recorded SARS-CoV-2 (COVID-19) mRNA BNT-162b2 vac 02/27/21 Given SARS-CoV-2 (COVID-19) mRNA BNT-162b2 vac 02/06/21 Given tetanus-diphtheria toxoids (Td) 11/23/20 Given tetanus/diphtheria/pertussis, acel(Tdap) 2 10/12/10 Given 1Admin Note: VIS given 05/30/10, American form 2Admin Note: VIS given, 08/2008, American form Medications amLODIPine 5 mg oral tablet 5 mg, 1, tablet, By Mouth, Daily, # 90 tablet, Refills 3, Tot. Refills 3, Maintenance, 11/01/22 9:44:00 EST, [id number] Partial fill upon patient request ifthe prescription is for a schedule II opioid drug.,... Start Date: 11/01/22 Status: Ordered Artificial Tears preserved solution 1 drops, Eyes, Both, 2 times a day, PRN for dry eyes, # 30 mL, 2 Refills, Maintenance, 02/04/23 9:35:00 EDT, Solution, [facility]/pharmacy #[id number], Partial fill upon patient request if the prescription is fora schedule II opioid drug., 1 drops Eyes, Both 2 ti... Start Date: 02/04/23 Status: Ordered Ativan 0.5 mg oral tablet 1 tablet = 0.5 mg, By Mouth, Once, burkinan label, take 30 mins to 1 hr before flight, # 2 tablet, 0Refills, Soft Stop, 10/08/22 17:54:00 EST, Tablet[id number] Partial fill upon patient request [...] Maintenance, 12/07/21 11:16:00 EST, via Dr Glover, fiscal assistant Start Date: 12/07/21 Status: Ordered baclofen 10 mg oral tablet See Instructions, TOME JOAN TABLETA POR VIA ORAL KARLA VECES AL MONICA, # 63 tablet, Refills 0, Instructions Replace Required Details, Route to Pharmacy Electronically, [facility]ORE [id number], 157.5, cm, 04/10/22 10:29:00 EDT, Height, 75, [...] 1 Refills, Maintenance, 01/18/23 10:15:00 EDT, [place], [facility]/pharmacy #[id number], Partial fill uponpatient request if the prescription is for a sched... Start Date: 01/18/23 Status: Ordered [facility] LUBRICANT EYE DROPS Maintenance, 12/07/21 11:16:00 EST, via Dr Glover, fiscal assistant, Supply Start Date: 12/07/21 Status: Ordered diclofenac 1% topical gel 1 application, Topically, 4 times a day, # 100 Gm, 5 Refills, Maintenance, 12/07/22 11:37:00 EST, Gel, [facility]/pharmacy #[id number], Partial fill upon patient request if the prescription is for a schedule II opioid drug., 162.56, cm, 12/07/22 10:29:00 EST, [place]... Start Date: 12/07/22 Status: Ordered famotidine 40 mg oral tablet 1 tablet = 40 mg, By Mouth, 2 times a day, take 2x/day for 2 weeks then decrease to daily, # 60 tablet, 2 Refills, Maintenance, 06/24/22 12:04:00 EDT, Tablet, [facility]/pharmacy #[id number], Partial fill upon patient request if the prescription is for a schedule... Start Date: 06/24/22 Stop Date: 09/22/22 Status: Ordered Flomax 0.4 mg oral capsule 0.4 mg, 1, capsule, By Mouth, Daily, # 30 capsule, Refills 5, Tot. Refills 5, Maintenance, 11/07/2310:08:00 EST, Route to Pharmacy Electronically, [facility]/pharmacy #[id number], Partial fill upon patient request if the prescription is for a schedule II opioid d... Start Date: 11/07/22 Status: Ordered ketoconazole 2% topical cream 1 application, Topically, Daily, Print instructions in burkinan Use only on feet, # 60 Gm, 1 Refills, Maintenance, 01/18/23 10:16:00 EDT, Cream, [facility]/pharmacy #[id number], Partial fill upon patient request [...] Maintenance, 12/07/21 11:16:00 EST, via Dr Glover, fiscal assistant, Supply Start Date: 12/07/21 Status: Ordered [...] EDT, He... Start Date: 06/11/22 Status: Ordered [place]-3 1000 mg oral capsule via psychiatry, 0 Refills, Maintenance, 12/07/21 11:13:00 EST, Partial fill upon patient request ifthe prescription is for a schedule II opioid drug. Start Date: 12/07/21 Status: Ordered omeprazole 40 mg oral enteric coated capsule See Instructions, JUAN RAMON ARTA DOS VECES AL MONICA, # 180 capsule, 1 Refills, Maintenance, 09/05/22 10:55:00 EST, [id number], 162.56, cm, 07/12/22 10:42:00 EDT, Height, 76.5, [...] 15:27:00 EDT, Tablet, [id number], label in American, 162.56,cm, 01/14/23 15:01:00 EDT, Height, 76.5, kg, [...] mL, 4 Refills, Maintenance, 02/28/22 16:09:00 EDT, [place], [id number], Partial fill upon patient request [...] displacement Confirmed Active Onychomycosis Confirmed Active *N/ONECARE/CC-Patricia [phone]/[facility], Active Care Coordination Confirmed Active Nasal [...] Team Personnel Name: Raiza KRISHNA, Trenton Position: [facility] Resident Member Role: PCP Address: Address: [address] [place] [id number]- Care Team Related Persons Name: AJAY BE Address: [place] [address] Name: KAMALJIT FUCHS Address: home [address] [place] [address] [place] [id number]
--- OUTSIDE RECORDS SUMMARY | 2023-06-10 06:26 | XMS_ITS | Continuity of Care Document ---
Author Name Unknown Organization [facility] Address [address] [place] [address]- Care Team Providers Care Utility Specialist Name Role Phone Raiza KRISHNA, Trenton Primary Care Physician Encounter [facility] Date(s): 02/21/22 - 03/23/[address] [address]- Allergies, Adverse Reactions, Alerts Substance Reaction Severity [...] 10/12/10 Given 1Admin Note: VIS given 05/30/10, Mozambican form 2Admin Note: VIS given, 08/2008, Mozambican form Medications amLODIPine 2.5 mg oral tablet 2.5 mg, 1, tablet, By Mouth, Daily, ; STOP amlodipine 5 mg. use this dose instead., # 30 tablet, Refills 5, Tot. Refills 5, Maintenance, 11/17/21 16:52:00 EST, Route to Pharmacy Electronically,[facility]/pharmacy #[id number], label all scripts in INDONESIAN, 1... Start Date: 11/17/21 Stop Date: 05/16/22 Status: Ordered azelastine 0.05% ophthalmic solution 1 drops, Eyes, Both, 2 times a day, PRN for allergy symptoms, For eye allergies, # 6 mL, 6 Refills,Maintenance, 02/28/22 16:27:00 EDT, [facility]/pharmacy #[id number], Label in Mozambican, 1 drops Eyes, Both 2 times a day,PRN:for allergy symptoms,Instr:For eye aller... Start Date: 02/28/22 Status: Ordered azelastine 137 mcg/inh (0.1%) nasal spray 0 Refills, Maintenance, 12/07/21 11:16:00 EST, via Dr Glover, customer care team coach Start Date: 12/07/21 Status: Ordered buPROPion 150 [...] 1 Refills, Maintenance, 08/28/21 14:44:00 EST, Solution, [facility]/pharmacy #[id number], Partial fill upon patient request if the prescription is for... Start Date: 08/28/21 Status: Ordered [facility] LUBRICANT E[facility] DROPS Maintenance, 12/07/21 11:16:00 EST, via Dr Glover, customer care team coach, Supply Start Date: 12/07/21 Status: Ordered cyclobenzaprine 5 mg oral tablet 0 Refills, Maintenance, 09/28/21 13:55:00 EST, Partial fill upon patient request if the prescription is for a schedule II opioid drug. Start Date: 09/28/21 Status: Ordered diclofenac 3% topical gel 1 application, Topically, 2 times a day, # 100 Gm, 0 Refills, Maintenance, 04/28/21 17:22:00 EDT, Gel, [facility]/pharmacy #[id number], Partial fill upon patient request if the prescription is for a schedule II opioid drug., 1 application Topically 2 times a day,... Start Date: 04/28/21 Status: Ordered Flonase 50 mcg/inh nasal spray 1 sprays, Nares, Both, Daily, # 16 Gm, 1 Refills, Maintenance, 11/30/21 10:55:00 EST, [place], [facility]/pharmacy #[id number], 1 sprays Nares, Both [...] Maintenance, 12/07/21 11:16:00 EST, via Dr Glover, customer care team coach, Supply Start Date: 12/07/21 Status: Ordered minoxidil [...] Refills, Maintenance, 09/21/21 9:33:00 EST, [facility]der[facility] fill upon patient request if the prescription is for a schedule II opioid drug., 240 mL By Mouth Every 10 minut... Start Date: 09/21/21 Status: Ordered [place]-3 1000 mg oral capsule via psychiatry, 0 Refills, Maintenance, 12/07/21 11:13:00 EST, Partial fill upon patient request ifthe prescription is for a schedule II opioid drug. Start Date: 12/07/21 Status: Ordered omeprazole 40 mg oral enteric coated capsule 1 capsule = 40 mg, By Mouth, 2 times a day, # 60 capsule, 2 Refills, Maintenance, 04/13/21 10:31:00EDT, EC Capsule, [facility]/pharmacy #[id number], Partial fill upon patient request if the prescription is for aschedule II opioid drug., 159, cm, 01/04/21 9:23:00... Start Date: 04/13/21 Stop Date: 07/12/21 Status: Ordered Lynette-Colace 50 mg-8.6 mg oral tablet 2 tablet, By Mouth, Daily at bedtime, PRN Constipation, For constipation, # 60 tablet, 0 Refills, Maintenance, 01/02/22 20:52:00 EDT, Tablet, [facility]/pharmacy #[id number], Partial [...] mL, 4 Refills, Maintenance, 02/28/22 16:09:00 EDT, [place], [facility]/pharmacy #[id number], Partial fill upon patient request if the prescription is for a schedule II opioid drug., 1 sprays N... Start Date: 02/28/22 Status: Ordered tamsulosin 0.4 mg oral capsule 0.4 mg, 1, capsule, By Mouth, Daily, at night (print label in lithuanian), # 30 capsule, Refills 1, Tot. Refills 1, Maintenance, 09/28/21 14:03:00 EST, Route to Pharmacy Electronically, [facility], Partial fill upon patient request if the... Start Date: 09/28/21 Status: Ordered Tears Naturale Forte preserved ophthalmic solution 1 drops, Eyes, Both, 2 times a day, PRN for dry eyes, # 30 mL, 0 Refills, Maintenance, 08/28/21 14:52:00 EST, Solution, [facility]/pharmacy #[id number], Partial [...] 0 Refills, Maintenance, 04/28/21 17:18:00 EDT, Capsule, [facility]/pharmacy #[id number], lithuanian labeling, 159, cm, 04/28/2115:46:00 EDT, Height, 78, kg, 01/01/21 16:06:00 EDT... Start Date: 04/28/21 Stop Date: 05/01/21 Status: Ordered Tums 500 mg oral tablet, chewable 500 mg, 1, tablet, Chew, 2 times a day, # 60 tablet, Refills 5, Tot. Refills 5, Maintenance, 12/16/20 14:32:00 EST, Route to Pharmacy Electronically, [facility]/pharmacy #[id number], 159, cm, 12/16/20 13:47:00 EST, Height, 74.1, kg, 10/20/20 16:18:00 EST, Dry Weight Start Date: 12/16/20 Status: Ordered Problem List Condition Effective Dates Status Health Status Inform ant Hematuria(Confirmed) 1 Active Chronic back pain(Confirmed) Active Dyslipidemia(Confirmed) Active Allergic rhinitis(Confirmed) Active Illiteracy(Confirmed) Active Dyspepsia(Confirmed) Active Disc displacement(Confirmed) Active Obese class I(Confirmed) Active Onychomycosis(Confirmed) Active *BHN/[facility]ECARE/CC-Patricia [phone]/[facility], Active Care Coordination(Confirmed) Active Nasal septum perforation, h/ o cocaine(Confirmed) Active Muscle spasm(Confirmed) Active Tubular adenoma of colon - d ue 2021(Confirmed) 2 11/2015 Active 1lul 2-2014, had cystoscopy 2014 Social History Social History Type Response Smoking Status Never smoker entered on: 08/23/16 Sex
--- OUTSIDE RECORDS SUMMARY | 2023-06-10 06:26 | XMS_ITS | Continuity of Care Document ---
Author Name Unknown Organization [facility] Address [address] [place] [address]- Care Team Providers Care Hog Driver Name Role Phone Raiza KRISHNA, [place] Primary Care Physician Encounter [facility] Date(s): 03/26/22 - 04/25/22 [facility] [address] [place] [id number] Allergies, Adverse Reactions, Alerts [...] VIS given, 08/2008, Argentine form Medications amLODIPine 2.5 mg oral tablet 2.5 mg, 1, tablet, By Mouth, Daily, ; STOP amlodipine 5 mg. use this dose instead., # 30 tablet, Refills 5, Tot. Refills 5, Maintenance, 11/17/21 16:52:00 EST, Route to Pharmacy Electronically,[facility]/pharmacy #[id number], label all scripts in CZECH, 1... Start Date: 11/17/21 Stop Date: 05/16/22 Status: Ordered azelastine 0.05% ophthalmic solution 1 drops, Eyes, Both, 2 times a day, PRN for allergy symptoms, For eye allergies, # 6 mL, 6 Refills,Maintenance, 02/28/22 16:27:00 EDT, [facility]/pharmacy #[id number], Label in Argentine, 1 drops Eyes, Both 2 times a day,PRN:for allergy symptoms,Instr:For eye aller... Start Date: 02/28/22 Status: Ordered azelastine 137 mcg/inh (0.1%) nasal spray 0 Refills, Maintenance, 12/07/21 11:16:00 EST, via Dr Glover, distribution operation supervisor Start Date: 12/07/21 Status: Ordered baclofen 10 mg oral tablet See Instructions, JUAN RAMON FRANCO TABLETA POR VIA ORAL KARLA VECES AL MONICA, # 63 tablet, Refills 0, Instructions Replace Required Details, Route to Pharmacy Electronically, [id number], 157.5, cm, 04/10/22 10:29:00 EDT, Height, 75, [...] 1 Refills, Maintenance, 08/28/21 14:44:00 EST, Solution, [facility]/pharmacy #[id number], Partial fill upon patient request if the prescription is for... Start Date: 08/28/21 Status: Ordered Crutches See Instructions, # 1 kit, Maintenance, use for 2 weeks dx: leg injury, 03/27/22 10:10:00 EDT, Supply, 157.5, cm, 03/27/22 9:45:00 EDT, Height, 75, kg, 03/25/22 2:00:00 EDT, Dry Weight Start Date: 03/27/22 Status: Ordered [facility] LUBRICANT EYE DROPS Maintenance, 12/07/21 11:16:00 EST, via Dr Glover, distribution operation supervisor, Supply Start Date: 12/07/21 Status: Ordered cyclobenzaprine 5 mg oral tablet 0 Refills, Maintenance, 09/28/21 13:55:00 EST, Partial fill upon patient request if the prescription is for a schedule II opioid drug. Start Date: 09/28/21 Status: Ordered diclofenac 3% topical gel 1 application, Topically, 2 times a day, # 100 Gm, 0 Refills, Maintenance, 04/28/21 17:22:00 EDT, Gel, [facility]/pharmacy #[id number], Partial fill upon patient request if the prescription is for a schedule II opioid drug., 1 application Topically 2 times a day,... Start Date: 04/28/21 Status: Ordered Flonase 50 mcg/inh nasal spray 1 sprays, Nares, Both, Daily, # 16 Gm, 1 Refills, Maintenance, 11/30/21 10:55:00 EST, [place], [facility]/pharmacy #[id number], 1 sprays Nares, Both [...] 12/18/21 10:54:00 EST, Route to Pharmacy Electronically, [facility]/pharmacy #[id number], Partial fill upon patient request if the prescription is for a schedule II opioid drug... Start Date: 12/18/21 Status: Ordered LUBRICNT EYE JESSICA 0.4-0.3% Maintenance, 12/07/21 11:16:00 EST, via Dr Glover, distribution operation supervisor, Supply Start Date: 12/07/21 Status: Ordered minoxidil 2% topical solution 1 mL = 0.02 Gm, Topically, 2 times a day, # 60 mL, 2 Refills, Maintenance, 02/28/22 16:27:00 EDT, Solution, [facility]/pharmacy #[id number], Partial fill upon patient [...] Refills, Maintenance, 09/21/21 9:33:00 EST, REC Powder, [facility], Partial fill upon patient request if the prescription is for a schedule II opioid drug., 240 mL By Mouth Every 10 minut... Start Date: 09/21/21 Status: Ordered [place]-3 1000 mg oral capsule via psychiatry, 0 [...] 0 Refills, Maintenance, 01/02/22 20:52:00 EDT, Tablet, [facility]/pharmacy #[id number], Partial fill upon patient [...] mL, 4 Refills, Maintenance, 02/28/22 16:09:00 EDT, [place], [facility]/pharmacy #[id number], Partial fill upon patient request if the prescription is for a schedule II opioid drug., 1 sprays N... Start Date: 02/28/22 Status: Ordered tamsulosin 0.4 mg oral capsule 0.4 mg, 1, capsule, By Mouth, Daily, at night (print label in hungarian), # 30 capsule, Refills 1, Tot. Refills 1, Maintenance, 09/28/21 14:03:00 EST, Route to Pharmacy Electronically, [facility], Partial fill upon patient request if the... Start Date: 09/28/21 Status: Ordered Tears Naturale Forte preserved ophthalmic solution 1 drops, Eyes, Both, 2 times a day, PRN for dry eyes, # 30 mL, 0 Refills, Maintenance, 08/28/21 14:52:00 EST, Solution, [facility]/pharmacy #[id number], Partial fill upon patient request if the prescription is for a schedule II opioid drug., 1 drops Eyes, Both 2 t... Start Date: 08/28/21 Status: Ordered tiZANidine 2 mg oral capsule 1 capsule = 2 mg, By Mouth, 3 times a day, PRN as needed for muscle spasm, # 9 capsule, 0 Refills, Maintenance, 04/28/21 17:18:00 EDT, [facility]apsule, [id number], hungarian labeling, 159, cm, 04/28/2115:46:00 EDT, Height, 78, kg, 01/01/21 16:06:00 EDT... Start Date: 04/28/21 Stop Date: 05/01/21 Status: Ordered Tums 500 mg oral tablet, chewable 500 mg, 1, tablet, Chew, 2 times a day, # 60 tablet, Refills 5, Tot. Refills 5, Maintenance, 12/16/20 14:32:00 EST, Route to Pharmacy Electronically, [facility]/pharmacy #[id number], 159, cm, 12/16/20 13:47:00 [...]
--- OUTSIDE RECORDS SUMMARY | 2023-06-10 06:26 | XMS_ITS | Continuity of Care Document ---
Author Name Unknown Organization [facility] Address [address] [place] [address]- Care Team Providers Care Welder Assembler Name Role Phone Trenton Eastman MD Primary Care Physician [phone] Encounter [facility] Date(s): 06/08/21 - 07/08/21 [facility] [address], [place] [address] Allergies, Adverse Reactions, Alerts Substance [...] 11/22/20 16:52:00 EST, Route to Pharmacy Electronically, [facility]/pharmacy #[id number], label all scripts in ETHIOPIAN,... Start Date: 11/22/20 Stop Date: 11/17/21 Status: Ordered azelastine 0.05% ophthalmic solution 1 drops, Eyes, Both, 2 times a day, PRN for allergy symptoms, # 6 mL, 6 Refills, Maintenance, 01/13/21 14:54:00 EDT, [facility]/pharmacy #[id number], Label in Gambian, 1 drops Eyes, Both 2 times a day,PRN:for allergy symptoms, 159, cm, 01/04/21 9:23:00 EDT, Height... Start Date: 01/13/21 Status: Ordered diclofenac 3% topical gel 1 application, Topically, 2 times a day, # 100 Gm, 0 Refills, Maintenance, 04/28/21 17:22:00 EDT, Gel, [facility]/pharmacy #[id number], Partial fill upon patient request if the prescription is for a schedule II opioid drug., 1 application Topically 2 times a day,... Start Date: 04/28/21 Status: Ordered Flonase 50 mcg/inh nasal spray 1 sprays, Nares, Both, Daily, # 16 Gm, 1 Refills, Maintenance, 06/16/20 18:04:00 EDT, [place], [facility]/pharmacy #[id number], 159, cm, 06/08/20 13:31:00 EDT, Height Start Date: 06/16/20 Status: Ordered multivitamin Multiple Vitamins oral capsule 1 capsule, By Mouth, Daily, # 90 capsule, 1 Refills, Maintenance, 02/06/21 14:59:00 EDT, Capsule, [facility]/pharmacy #[id number], 1 capsule By Mouth Daily, 159, cm, 01/04/21 9:23:00 EDT, Height, 78, kg, 01/02/2116:06:00 EDT, Dry Weight Start Date: 02/06/21 Status: Ordered omeprazole 40 mg oral enteric coated capsule 1 capsule = 40 mg, By Mouth, 2 times a day, # 60 capsule, 2 Refills, Maintenance, 04/13/21 10:31:00EDT, EC Capsule, [facility]/pharmacy #[id number], Partial fill upon patient request if [...] Maintenance, 04/28/21 17:18:00 EDT, Capsule, [facility]/pharmacy #[id number], syriac labeling, 159, cm, 04/28/2115:46:00 EDT, Height, 78, kg, 01/01/21 16:06:00 EDT... Start Date: 04/28/21 Stop Date: 05/01/21 Status: Ordered Tums 500 mg oral tablet, chewable 500 mg, 1, tablet, Chew, 2 times a day, # 60 tablet, Refills 5, Tot. Refills 5, Maintenance, 12/16/20 14:32:00 EST, Route to Pharmacy Electronically, [facility]/pharmacy #[id number], 159, cm, 12/16/20 13:47:00 EST, Height, 74.1, kg, 10/20/20 16:18:00 EST, Dry Weight Start Date: 12/16/20 Status: Ordered Problem List Condition Effective Dates Status Health Status Inform ant Hematuria(Confirmed) 1 Active Chronic back pain(Confirmed) Active Dyslipidemia(Confirmed) Active h/o allergic rhinitis(Confirmed) Active Illiteracy(Confirmed) Active Dyspepsia(Confirmed) Active Disc displacement(Confirmed) Active Onychomycosis(Confirmed) Active [facility]/CC-Serena Purcell-[phone]/[facility], Active Care Coordination(Confirmed) Active Muscle spasm(Confirmed) Active Tubular adenoma of colon - d ue 2021(Confirmed) 2 11/2015 Active 1, gross 2-2014, had cystoscopy 2014 Social History Social History Type Response Smoking Status Never smoker entered on: 08/23/16 Sex
--- OUTSIDE RECORDS SUMMARY | 2023-06-10 06:26 | XMS_ITS | Continuity of Care Document ---
Author Name Unknown Organization [facility] Address [address] [place] [address]- Care Team Providers Care Vice President Safety Name Role Phone Trenton Eastman MD Primary Care Physician [facility]counter [facility] Date[facility]s): 10/18/21 - 11/17/21 [facility] [address] [place], [place] [address] Allergies, Adverse Reactions, Alerts Substance [...] 10/12/10 Given 1Admin Note: VIS given 05/30/10, Palauan form 2Admin Note: VIS given, 08/2008, Palauan form Medications amLODIPine 2.5 mg oral tablet 2.5 mg, 1, tablet, By Mouth, Daily, ; STOP amlodipine 5 mg. use this dose instead., # 30 tablet, Refills 5, Tot. Refills 5, Maintenance, 11/17/21 16:52:00 EST, Route to Pharmacy Electronically,[facility]/pharmacy #[id number], label all scripts in [place], 1... Start Date: 11/17/21 Stop Date: 05/16/22 Status: Ordered azelastine 0.05% ophthalmic solution 1 drops, Eyes, Both, 2 times a day, PRN for allergy symptoms, # 6 mL, 6 Refills, Maintenance, 01/13/21 14:54:00 EDT, [facility]/pharmacy #[id number], Label in Palauan, 1 drops Eyes, Both 2 times a [...] 1 Refills, Maintenance, 08/28/21 14:44:00 EST, Solution, [facility]/pharmacy #[id number], Partial fill upon [...] 0 Refills, Maintenance, 04/28/21 17:22:00 EDT, Gel, [facility]/pharmacy #[id number], Partial fill upon patient request if the prescription is for a schedule II opioid drug., 1 application Topically 2 times a day,... Start Date: 04/28/21 Status: Ordered Flonase 50 mcg/inh nasal spray 1 sprays, Nares, Both, Daily, # 16 Gm, 1 Refills, Maintenance, 06/16/20 18:04:00 EDT, [place], [facility]/pharmacy #[id number], 159, cm, 06/08/20 13:31:00 EDT, Height Start Date: 06/16/20 Status: Ordered multivitamin Multiple Vitamins oral capsule 1 capsule, By Mouth, Daily, # 90 capsule, 0 Refills, Maintenance, 10/18/21 22:09:00 EST, Capsule, [facility]/pharmacy #[id number], 1 capsule By Mouth Daily, 159, cm, 10/05/21 13:26:00 EST, Height, 78, kg, 01/01/21 16:06:00 EDT, Dry Weight Start Date: 10/18/21 Status: Ordered NuLYTELY with Flavor Packs oral powder for reconstitution 240 mL, By Mouth, Every 10 minutes, # 1 each, 0 Refills, Maintenance, 09/21/21 9:33:00 EST, REC Powder, [facility], Partial fill upon patient request if the prescription is for a schedule II opioid drug., 240 mL By Mouth Every 10 minut... Start Date: 09/21/21 Status: Ordered omeprazole 40 mg oral enteric coated capsule 1 capsule = 40 mg, By Mouth, 2 times a day, # 60 capsule, 2 Refills, Maintenance, 04/13/21 10:31:00EDT, EC Capsule, [facility]/pharmacy #[id number], Partial fill upon [...] Mouth, Daily, at night (print label in telugu), # 30 capsule, Refills 1, Tot. Refills 1, Maintenance, 09/28/21 14:03:00 EST, Route to Pharmacy Electronically, [facility], Partial fill upon patient request if the... Start Date: 09/28/21 Status: Ordered Tears Naturale Forte preserved ophthalmic solution 1 drops, Eyes, Both, 2 times a day, PRN for dry eyes, # 30 mL, 0 Refills, Maintenance, 08/28/21 14:52:00 EST, Solution, [facility]/pharmacy #[id number], Partial fill upon patient request if the prescription is for a schedule II opioid drug., 1 drops Eyes, Both 2 t... Start Date: 08/28/21 Status: Ordered tiZANidine 2 mg oral capsule 1 capsule = 2 mg, By Mouth, 3 times a day, PRN as needed for muscle spasm, # 9 capsule, 0 Refills, Maintenance, 04/28/21 17:18:00 EDT, Capsule, [facility]/pharmacy #[id number], telugu labeling, 159, cm, 04/28/2115:46:00 EDT, Height, 78, kg, 01/01/21 16:06:00 EDT... Start Date: 04/28/21 Stop Date: 05/01/21 Status: Ordered Tums 500 mg oral tablet, chewable 500 mg, 1, tablet, Chew, 2 times a day, # 60 tablet, Refills 5, Tot. Refills 5, Maintenance, 12/16/20 14:32:00 EST, Route to Pharmacy Electronically, [facility]/pharmacy #[id number], 159, cm, 12/16/20 13:47:00 EST, Height, 74.1, kg, 10/20/20 16:18:00 EST, Dry Weight Start Date: 12/16/20 Status: Ordered Problem List Condition Effective Dates Status Health Status Inform ant Hematuria(Confirmed) 1 Active Chronic back pain(Confirmed) Active Dyslipidemia(Confirmed) Active h/o allergic rhinitis(Confirmed) Active Illiteracy(Confirmed) Active Dyspepsia(Confirmed) Active Disc displacement(Confirmed) Active Onychomycosis(Confirmed) Active *[facility]/CC-Patricia [phone]/[facility], Active Care Coordination(Confirmed) Active Muscle spasm(Confirmed) Active Tubular adenoma of colon - d ue 2021(Confirmed) 2 11/2015 Active 1, gross 2-2014, had cystoscopy 2014 Social History Social History Type Response Smoking Status Never smoker entered on: 08/23/16 Sex
--- OUTSIDE RECORDS SUMMARY | 2023-06-10 06:26 | XMS_ITS | Continuity of Care Document ---
Author Name Unknown Organization [facility] Address [address] [place] [address]- Care Team Providers Care Machine Try Out Setter Name Role Phone Bebe KRISHNA, Hugh Primary Care Physician [phone] Encounter [facility] Date(s): 11/28/20 - 12/28/20 [facility] [address], [place] [address] [[email or web address]] Allergies, Adverse Reactions, Alerts Substance Reaction Severity [...] 11/22/20 16:52:00 EST, Route to Pharmacy Electronically, [facility]/pharmacy #[id number], label all scripts in [place],... Start Date: 11/22/20 Stop Date: 11/17/21 Status: Ordered diclofenac 1% topical gel 1 application, Topically, 4 times a day, not to exceed 32 grams/day, # 100 Gm, 2 Refills, Maintenance, 12/12/20 11:17:00 EST, Gel, [facility]/pharmacy #[id number], Label in Paraguayan please, 159, cm, 12/12/20 10:33:00 EST, Height, 74.1, kg, 10/20/20 16:18:00 EST, . Start Date: 12/12/20 Status: Ordered Flonase 50 mcg/inh nasal spray 1 sprays, Nares, Both, Daily, # 16 Gm, 1 Refills, Maintenance, 06/16/20 18:04:00 EDT, [place], [facility]/pharmacy #[id number], 159, cm, 06/08/20 13:31:00 EDT, Height Start Date: 06/16/20 Status: Ordered multivitamin Multiple Vitamins oral capsule 1 capsule, By Mouth, Daily, # 90 capsule, 11 Refills, Maintenance, 08/12/20 11:32:00 EDT, Capsule, [facility]/pharmacy #[id number], 1 capsule By Mouth Daily, 159, cm, 07/27/20 13:20:00 EDT, Height Start Date: 08/12/20 Status: Ordered omeprazole 40 mg oral enteric coated capsule 1 capsule = 40 mg, By Mouth, 2 times a day, # 60 capsule, 0 Refills, Maintenance, 12/13/20 12:59:00EST, EC Capsule, [facility]/pharmacy #[id number], Partial fill upon patient request if the prescription is for aschedule II opioid drug., 159, cm, 12/12/20 10:33:0... Start Date: 12/13/20 Stop Date: 01/12/21 Status: Ordered omeprazole 40 mg oral enteric coated capsule 1 capsule = 40 mg, By Mouth, 2 times a day, # 60 capsule, 4 Refills, Maintenance, 10/05/20 14:48:00EST, EC Capsule, [facility]/pharmacy #[id number], Partial fill upon patient request if the prescription is for aschedule II opioid drug., 159, cm, 07/27/20 13:20:0... Start Date: 10/05/20 Stop Date: 03/04/21 Status: Ordered prazosin 2 mg oral capsule via LindaaitrySyl, 0 Refills, Maintenance, 11/22/20 16:15:00 EST, Partial fill upon patient request if the prescription is for a schedule II opioid drug. Start Date: 11/22/20 Status: Ordered QUEtiapine 100 mg oral tablet 100 mg, 1, tablet, By Mouth, Daily in AM, via Lindaaitry, Syl Riley, Refills 0, Maintenance, 11/22/20 16:15:00 [...] 12/16/20 14:32:00 EST, Route to Pharmacy Electronically, [facility]/pharmacy #[id number], 159, cm, 12/16/20 13:47:00 EST, Height, 74.1, kg, 10/20/20 16:18:00 EST, Dry Weight Start Date: 12/16/20 Status: Ordered Tylenol 8 HR Arthritis Pain 650 mg oral tablet, extended release 1 tablet = 650 mg, By Mouth, Every 8 hours, # 100 tablet, 1 Refills, Acute 12/05/21 9:00:00 EST, 12/05/20 15:26:00 EST, ER Tablet, [facility]/pharmacy #[id number], 159, cm, 07/27/20 13:20:00 EDT, Height, 74.1, kg, 10/20/20 16:18:00 EST, Dry Weight Start Date: 12/05/20 Stop Date: 12/05/21 Status: Ordered Problem List Condition Effective Dates Status Health Status Inform ant Hematuria(Confirmed) 1 Active Chronic back pain(Confirmed) Active Dyslipidemia(Confirmed) Active h/o allergic rhinitis(Confirmed) Active Illiteracy(Confirmed) Active Dyspepsia(Confirmed) Active Disc displacement(Confirmed) Active [facility]/CC-Serena Purcell-[phone]/[facility], Active Care Coordination(Confirmed) Active Tubular adenoma of colon - d ue 2021(Confirmed) 2 11/2015 Active 1lul -2014, had cystoscopy 2014 Social History Social History Type Response Smoking Status Never smoker entered on: 08/23/16 Sex
--- OUTSIDE RECORDS SUMMARY | 2023-06-10 06:26 | XMS_ITS | Continuity of Care Document ---
Author Name Unknown Organization [facility] Address [address] [place] [address]- Care Team Providers Care Barrel Straightener Name Role Phone Trenton Eastman MD Primary Care Physician [phone] Encounter [facility] [place] [id number] Date(s): 04/22/23 - 05/22/[address] [address] Attending Physician: Viky Garcia Admitting [...] inactivated 1 10/12/10 Gi jocy SARS-CoV-2 mRNA ([id number]) vax 06/13/22 Recorded SARS-CoV-2 (COVID-19) mRNA BNT-162b2 vac 09/13/21 Recorded SARS-CoV-2 (COVID-19) mRNA BNT-162b2 vac 02/27/21 Given SARS-CoV-2 (COVID-19) mRNA BNT-162b2 vac 02/06/21 Given tetanus-diphtheria toxoids (Td) 11/23/20 Given tetanus/diphtheria/pertussis, acel(Tdap) 2 10/12/10 Given 1Admin Note: VIS given 05/30/10, [place]guillan form 2Admin Note: VIS given, 08/2008, [place]guillan form Medications amLODIPine 5 mg oral tablet 5 mg, 1, tablet, By Mouth, Daily, # 90 tablet, Refills 3, Tot. Refills 3, Maintenance, 05/17/23 16:45:00 EDT, Route to Pharmacy Electronically, [facility]/pharmacy [...] Maintenance, 12/07/21 11:16:00 EST, via Dr Glover, esl teacher Start Date: 12/07/21 Status: Ordered buPROPion 150 mg/24 hours (XL) oral tablet, extended release via psychiatry, 0 Refills, Maintenance, 12/07/21 11:13:00 EST, Partial fill upon patient request ifthe prescription is for a schedule II opioid drug. Start Date: 12/07/21 Status: Ordered ciclopirox topical 0.77% suspension 1 application, Topically, 2 times a day, Print instructions in cambodian use only for toenails, # 60 mL, 1 Refills, Maintenance, 01/18/23 10:15:00 EDT, Suspension, [facility]/pharmacy #[id number], Partial fill uponpatient request if the prescription is for a sched... Start Date: 01/18/23 Status: Ordered [facility] Maintenance, 12/07/21 11:16:00 EST, via Dr Glover, esl teacher, Supply Start Date: 12/07/21 Status: Ordered diclofenac 1% topical gel 1 application, Topically, 4 times a day, # 100 Gm, 5 Refills, Maintenance, 12/07/22 11:37:00 EST, Gel, [id number], Partial fill upon patient [...] application Topi... Start Date: 04/19/23 Status: Ordered home COVID test home COVID test, See Instructions, # 2 each, Refills 0, Tot. Refills 0, Maintenance, use as directed, 02/15/23 9:33:00 EDT, Supply, 162.56, cm, 02/15/23 9:29:00 EDT, Height, 76.5, kg, 06/12/22 13:23:00 EDT, Dry Weight Start Date: 02/15/23 Status: Ordered ketoconazole 2% topical cream 1 application, Topically, Daily, Print instructions in cambodian Use only on feet, # 60 Gm, 1 Refills, Maintenance, 01/18/23 10:16:00 EDT, Cream, [id number], Partial fill upon patient request if the prescription is for a schedule II opioid drug... Start Date: 01/18/23 Status: Ordered LUBRICNT EYE JESSICA 0.4-0.3% Maintenance, 12/07/21 11:16:00 EST, via Dr Glover, esl teacher, Supply Start Date: 12/07/21 Status: Ordered multivitamin [...] 5 Refills, Maintenance, 12/07/22 11:36:00 EST, Suspension, [facility]/pharmacy #[id number], Partial fill upon [...] cm, 02/20/23... Start Date: 02/28/23 Status: Ordered [place]-3 1000 mg oral capsule via psychiatry, 0 Refills, Maintenance, 12/07/21 11:13:00 EST, Partial fill upon patient request ifthe prescription is for a schedule II opioid drug. Start Date: 12/07/21 Status: Ordered omeprazole 40 mg oral enteric coated capsule See Instructions, JUAN RAMON KO DOS [facility]ECES [place], # 180 capsule, 1 Refills, Maintenance, 02/25/23 7:44:00 EDT, [id number], 158, cm, 02/20/23 9:30:00 EDT, Height, 76.5, [...] 3 Refills, Maintenance, 05/17/23 16:47:00 EDT, Tablet, [facility]/pharmacy #[id number], label in [place], 159, cm, 05/17/23 16:29:00 EDT, Height, 73.4, kg, 05/02/23 14:49:00 EDT, Dry Weight Start Date: 05/17/23 Stop Date: 05/11/24 Status: Ordered Saline Mist 0.65% nasal spray 2 sprays, Nares, Both, 4 times a day, # 60 mL, 1 Refills, Maintenance, 02/08/23 13:50:00 EDT, [facility]/pharmacy #[id number], Partial fill upon patient request if the prescription is for a schedule II opioid drug., 2 sprays Nares, Both 4 times a day, 162.56, cm,... Start Date: 02/08/23 Status: Ordered tamsulosin 0.4 mg oral capsule See Instructions, JUAN RAMON KO [place]OS [place], # 90 capsule, Refills 1, Maintenance, 05/15/23 13:34:00 EDT, Instructions Replace Required Details, Route to Pharmacy Electronically, [id number], 159, cm, 05/02/23 14:49:00 EDT, Height, 73.4, kg,... Start Date: 05/15/23 Status: Ordered Tears Naturale Forte preserved ophthalmic solution 1 drops, Eyes, Both, 2 times a day, PRN for dry eyes, # 30 mL, 0 Refills, Maintenance, 11/30/22 11:37:00 EST, Solution, [facility]/pharmacy #[id number], Partial fill [...] Disc displacement Confirmed Active Onychomycosis Confirmed Active *[facility]/CC-Patricia [id number]/[facility], Active Care Coordination Confirmed Active Nasal septum perforation, h/o cocaine Confirmed Active Prediabetes Confirmed Active Muscle spasm Confirmed Active Tubular adenoma of colon - due 2021 2 Confirmed 11/2015 Active 1 gross 2-2014, had cystoscopy 2014 Social History Social History Type Response Smoking Status Never smoker entered on: 08/23/16 Sex Patient Care team information Care Team Personnel Name: Raiza KIRSHNA, Trenton Position: [facility] Resident Member Role: PCP Address: Address: [address] [place] [address] [place] [address]- Care Team Related Persons Name: AJAY BE Address: [place] [address] Name: KAMALJIT FUCHS Address: home [address] [place] [address] [address] [place] [id number]
--- OUTSIDE RECORDS SUMMARY | 2023-06-10 06:26 | XMS_ITS | Continuity of Care Document ---
Author Name Unknown Organization [facility] Address [address] [place] [address]- Care Team Providers Care Business Services Associate Name Role Phone Bebe KRISHNA, Hugh Primary Care Physician Encounter [facility] Date(s): 01/19/21 - 02/24/[address] [address] Attending Physician: Manish De La Paz MD Admitting Physician: Manish De La Paz MD Referring Physician: Manish De La Paz MD Allergies, [...] 10/12/10 Given 1Admin Note: VIS given 05/30/10, Vietnamese form 2Admin Note: VIS given, 08/2008, Vietnamese form Medications amLODIPine 2.5 mg oral tablet 2.5 mg, 1, tablet, By Mouth, Daily, ; STOP amlodipine 5 mg. use this dose instead., # 30 tablet, Refills 11, Tot. Refills 11, Maintenance, 11/22/20 16:52:00 EST, Route to Pharmacy Electronically, [facility]/pharmacy #[id number], label all scripts in AMHAR[place],... Start Date: 11/22/20 Stop Date: 11/17/21 Status: Ordered azelastine 0.05% ophthalmic solution 1 drops, Eyes, Both, 2 times a day, PRN for allergy symptoms, # 6 mL, 6 Refills, Maintenance, 01/13/21 14:54:00 EDT, [facility]/pharmacy #[id number], Label in Vietnamese, 1 drops Eyes, Both 2 times a day,PRN:for allergy symptoms, 159, cm, 01/04/21 9:23:00 EDT, Height... Start Date: 01/13/21 Status: Ordered diclofenac 1% topical gel 1 application, Topically, 4 times a day, not to exceed 32 grams/day, # 100 Gm, 2 Refills, Maintenance, 12/12/20 11:17:00 EST, Gel, [facility]/pharmacy #[id number], Label in Vietnamese please, 159, cm, 12/12/20 10:33:00 EST, Height, 74.1, kg, 10/20/20 16:18:00 EST, DrDonal.Donal Start Date: 12/12/20 Status: Ordered Flonase 50 mcg/inh nasal spray 1 sprays, Nares, Both, Daily, # 16 Gm, 1 Refills, Maintenance, 06/16/20 18:04:00 EDT, [place], [id number], 159, cm, 06/08/20 13:31:00 EDT, Height Start Date: 06/16/20 Status: Ordered multivitamin Multiple Vitamins oral capsule 1 capsule, By Mouth, Daily, # 90 capsule, 1 Refills, Maintenance, 02/06/21 14:59:00 EDT, Capsule, [facility]/pharmacy #[id number], 1 capsule By Mouth Daily, 159, cm, 01/04/21 9:23:00 EDT, Height, 78, kg, 01/02/2116:06:00 EDT, Dry Weight Start Date: 02/06/21 Status: Ordered omeprazole 40 mg oral enteric coated capsule 1 capsule = 40 mg, By Mouth, 2 times a day, # 60 capsule, 0 Refills, Maintenance, 12/13/20 12:59:00EST, EC Capsule, [facility]/pharmacy #[id number], Partial fill upon patient request if the prescription is for aschedule II opioid drug., 159, cm, 12/12/20 10:33:0... Start Date: 12/13/20 Stop Date: 01/12/21 Status: Ordered omeprazole 40 mg oral enteric coated capsule 1 capsule = 40 mg, By Mouth, 2 times a day, # 60 capsule, 4 Refills, Maintenance, 10/05/20 14:48:00EST, EC Capsule, [facility]/pharmacy #[id number], Partial fill [...] 9:00:00 EST, 12/05/20 15:26:00 EST, ER Tablet, [facility]/pharmacy #[id number], 159, cm, 07/27/20 13:20:00 EDT, Height, 74.1, kg, 10/20/20 16:18:00 EST, Dry Weight Start Date: 12/05/20 Stop Date: 12/05/21 Status: Ordered Problem List Condition Effective Dates Status Health Status Inform ant Hematuria(Confirmed) 1 Active Chronic back pain(Confirmed) Active Dyslipidemia(Confirmed) Active h/o allergic rhinitis(Confirmed) Active Illiteracy(Confirmed) Active Dyspepsia(Confirmed) Active Disc displacement(Confirmed) Active [facility]/CC-Serena Purcell-[phone]/[facility], Active Care Coordination(Confirmed) Active Tubular adenoma of colon - d ue 2021(Confirmed) 2 11/2015 Active 1 gross 2-2014, had cystoscopy 2014 Social History Social History Type Response Smoking Status Never smoker entered on: 08/23/16 Sex
--- OUTSIDE RECORDS SUMMARY | 2023-06-10 06:26 | XMS_ITS | Continuity of Care Document ---
Author Name Unknown Organization [facility] Address [address] [place] [address]- Care Team Providers Care Airport Tower Controller Name Role Phone Raiza KRISHNA, [place]on Primary Care Physician [facility]counter [facility] Date(s): 04/26/23 - 05/26/23 [facility] [address] [place] [id number] Allergies, Adverse Reactions, Alerts Substance [...] inactivated 1 10/12/10 Gi jocy SARS-CoV-2 mRNA (mmwafeg-xigp-eibuk) vax 06/13/22 Recorded SARS-CoV-2 (COVID-19) mRNA BNT-162b2 vac 09/13/21 Recorded SARS-CoV-2 (COVID-19) mRNA BNT-162b2 vac 02/27/21 Given SARS-CoV-2 (COVID-19) mRNA BNT-162b2 vac 02/06/21 Given tetanus-diphtheria toxoids (Td) 11/23/20 Given tetanus/diphtheria/pertussis, acel(Tdap) 2 10/12/10 Given 1Admin Note: VIS given 05/30/10, Canadian form 2Admin Note: VIS given, 08/2008, Canadian form Medications amLODIPine 5 mg oral tablet 5 mg, 1, tablet, By Mouth, Daily, # 90 tablet, Refills 3, Tot. Refills 3, Maintenance, 05/17/23 16:45:00 EDT, Route to Pharmacy Electronically, [facility]/pharmacy #[id number], Partial fill upon patient request if the prescription is for a schedule II opioid drug.... Start Date: 05/17/23 Status: Ordered Artificial Tears preserved solution 1 drops, Eyes, Both, 2 times a day, PRN for dry eyes, # 30 mL, 2 Refills, Maintenance, 02/04/23 9:35:00 EDT, Solution, [facility]/pharmacy #[id number], Partial fill upon patient request if the prescription is fora schedule II opioid drug., 1 drops Eyes, Both 2 ti... Start Date: 02/04/23 Status: Ordered azelastine 137 mcg/inh (0.1%) nasal spray 0 Refills, Maintenance, 12/07/21 11:16:00 EST, via Dr Glover, bulbs farmworker Start Date: 12/07/21 Status: Ordered buPROPion 150 [...] 1 Refills, Maintenance, 01/18/23 10:15:00 EDT, Suspension, [facility]/pharmacy #[id number], Partial fill uponpatient request if the prescription is for a sched... Start Date: 01/18/23 Status: Ordered [facility] Maintenance, 12/07/21 11:16:00 EST, via Dr Glover, bulbs farmworker, Supply Start Date: 12/07/21 Status: Ordered diclofenac 1% topical gel 1 application, Topically, 4 times a day, # 100 Gm, 5 Refills, Maintenance, 12/07/22 11:37:00 EST, Gel, [facility]/pharmacy #[id number], Partial fill upon patient request if [...] Maintenance, 12/07/21 11:16:00 EST, via Dr Glover, bulbs farmworker, Supply Start Date: 12/07/21 Status: Ordered multivitamin [...] 5 Refills, Maintenance, 12/07/22 11:36:00 EST, Suspension, [facility]/pharmacy #[id number], Partial fill upon patient request if [...] cm, 02/20/23... Start Date: 02/28/23 Status: Ordered [place]-3 1000 mg oral capsule via psychiatry, 0 Refills, Maintenance, 12/07/21 11:13:00 EST, Partial fill upon patient request ifthe prescription is for a schedule II opioid drug. Start Date: 12/07/21 Status: Ordered omeprazole 40 mg oral enteric coated capsule See Instructions, JUAN RAMON DELGADO AL MON[place], # 180 capsule, 1 Refills, Maintenance, 02/25/23 7:44:00 EDT, [id number], 158, cm, 02/20/23 9:30:00 EDT, Height, 76.5, [...] 3 Refills, Maintenance, 05/17/23 16:47:00 EDT, Tablet, [facility]/pharmacy #[id number], label in Canadian, 159, cm, 05/17/23 16:29:00 EDT, Height, 73.4, kg, 05/02/23 14:49:00 EDT, Dry Weight Start Date: 05/17/23 Stop Date: 05/11/24 Status: Ordered Saline Mist 0.65% nasal spray 2 sprays, Nares, Both, 4 times a day, # 60 mL, 1 Refills, Maintenance, 02/08/23 13:50:00 EDT, [facility]/pharmacy #[id number], Partial fill upon patient request if the prescription is for a schedule II opioid drug., 2 sprays Nares, Both 4 times a day, 162.56, cm,... Start Date: 02/08/23 Status: Ordered tamsulosin 0.4 mg oral capsule See Instructions, JUAN RAMON JOAN [place], # 90 capsule, Refills 1, Maintenance, 05/15/23 13:34:00 EDT, Instructions Replace Required Details, Route to Pharmacy Electronically, [id number], 159, cm, 05/02/23 14:49:00 EDT, Height, 73.4, kg,... Start Date: 05/15/23 Status: Ordered Tears Naturale Forte preserved ophthalmic solution 1 drops, Eyes, Both, 2 times a day, PRN for dry eyes, # 30 mL, 0 Refills, Maintenance, 11/30/22 11:37:00 EST, Solution, [facility]/pharmacy #[id number], Partial fill upon patient request if [...] opioid drug. Start Date: 06/12/22 Status: Ordered valacyclovir 1 gm oral tablet 1 tablet = 1 Gm, By Mouth, 2 times a day, for 5 days, # 10 tablet, 0 Refills, Acute 05/30/23 10:02:00 EDT, 05/25/23 10:02:00 EDT, Tablet, [facility]/pharmacy #[id number], Partial fill upon patient request if the prescription is for a schedule II opioid drug., 159,... Start Date: 05/25/23 Stop Date: 05/30/23 Status: Ordered Problem List Condition Confirmation Course Effective Dates Status H ealth Status Informant Hematuria 1 Confirmed Active Chronic back pain Confirmed Active Dyslipidemia Confirmed Active GERD (gastroesophageal reflux disease) Confirmed Active Allergic rhinitis Confirmed Active Hyperlipidemia Confirmed Active HTN (hypertension) Confirmed Active Illiteracy Confirmed Active Dyspepsia Confirmed Active Disc displacement Confirmed Active Onychomycosis Confirmed Active *[facility]/CC-Patricia [phone]/[facility], Active Care Coordination Confirmed [...] Personnel Name: Trenton Eastman MD Position: [facility] Resident Member Role: PCP Address: Address: [address] [place] [address] [place] [address]- Care Team Related Persons Name: AJAY BE Address: [place] [address] Name: KAMALJIT FUCHS Address: home [address] [place] [id number]
--- OUTSIDE RECORDS SUMMARY | 2023-06-10 06:27 | XMS_ITS | Continuity of Care Document ---
Author Name Unknown Organization [facility] Address [address] [place] [address]- Care Team Providers Care Runstitching Machine Operator Name Role Phone Bebe KRISHNA, Hugh Primary Care Physician [phone] Encounter [facility] Date(s): 10/11/20 - 11/10/20 [facility] [address] [place], [place] [address] Allergies, Adverse Reactions, Alerts Substance Reaction Severity Status penicillins Active Immunizations Given and Recorded Vaccine Date Status Refusal Reason influenza virus vaccine, inactivated 07/27/20 Give n influenza virus vaccine, inactivated 12/21/19 Give n influenza virus vaccine, inactivated 07/15/19 Give n influenza virus vaccine, inactivated 1 10/12/10 Gi jocy tetanus/diphtheria/pertussis, acel(Tdap) 2 10/12/10 Given 1Admin Note: VIS given 05/30/10, Yi form 2Admin Note: VIS given, 08/2008, Yi form Medications amLODIPine 5 mg oral tablet 5 mg, 1, tablet, By Mouth, Daily, # 90 tablet, Refills 10, Tot. Refills 10, Maintenance, 06/08/20 15:00:00 EDT, Route to Pharmacy Electronically, [facility]/pharmacy #[id number], 159, cm, 06/08/20 13:31:00 EDT, Height Start Date: 06/08/20 Stop Date: 02/23/23 Status: Ordered Artificial Tears preserved solution 1 drops, Eyes, Both, 2 times a day, PRN for dry eyes, # 10 mL, 0 Refills, Maintenance, 10/19/19 14:27:00 EST, [facility] 1 [facility] Eyes, Both 2 times a day,PRN:for dry eyes, 159, cm, 10/19/19 13:35:00 EST, Height Start Date: 10/19/19 Status: Ordered Flonase 50 mcg/inh nasal spray 1 sprays, Nares, Both, Daily, # 16 Gm, 1 Refills, Maintenance, 06/16/20 18:04:00 EDT, [place], [facility]/pharmacy #[id number], 159, cm, 06/08/20 13:31:00 EDT, Height Start Date: 06/16/20 Status: Ordered multivitamin Multiple Vitamins oral capsule 1 capsule, By Mouth, Daily, # 90 capsule, 11 Refills, Maintenance, 08/12/20 11:32:00 EDT, Capsule, [facility]/pharmacy #[id number], 1 capsule By Mouth Daily, 159, cm, 07/27/20 13:20:00 EDT, Height Start Date: 08/12/20 Status: Ordered Mylanta Maximum Strength oral suspension 20 mL, By Mouth, 4 times a day, between meals and at bedtime, # 240 mL, 1 Refills, Maintenance, 10/19/19 14:27:00 EST, Suspension, [facility], 20 mL By Mouth 4 times a day,Instr:between meals and at bedtime, 159, cm, 10/19/19 13:35:00... Start Date: 10/19/19 Status: Ordered omeprazole 40 mg oral enteric coated capsule 1 capsule = 40 mg, By Mouth, 2 times a day, # 60 capsule, 4 Refills, Maintenance, 10/05/20 14:48:00EST, EC Capsule, [facility]/pharmacy #[id number], Partial fill upon patient request [...] 10/20/20 18:51:00 EST, Route to Pharmacy Electronically, [facility]/pharmacy #[id number], Partial fill upon patient request if the prescription is for a schedule II opio... Start Date: 10/20/20 Stop Date: 10/27/20 Status: Ordered Tums 500 mg oral tablet, chewable 500 mg, 1, tablet, Chew, 2 times a day, # 60 tablet, Refills 3, Tot. Refills 3, Maintenance, 01/14/20 11:08:00 EDT, Route to Pharmacy Electronically, [facility], 159, cm, 12/21/19 13:52:00 EST, Height Start Date: 01/14/20 Status: Ordered Tylenol 8 HR Arthritis Pain 650 mg oral tablet, extended release 1 tablet = 650 mg, By Mouth, Every 8 hours, # 100 tablet, 1 Refills, Acute 09/11/21 13:31:00 EST, 09/12/20 13:30:00 EST, ER Tablet, [facility], 159, cm, 07/27/20 13:20:00 EDT, Height Start Date: 09/12/20 Stop Date: 09/11/21 Status: Ordered Problem List Condition Effective Dates Status Health Status Inform ant Hematuria(Confirmed) 1 Active Chronic back pain(Confirmed) Active Dyslipidemia(Confirmed) Active h/o allergic rhinitis(Confirmed) Active Illiteracy(Confirmed) Active Dyspepsia(Confirmed) Active Disc displacement(Confirmed) Active [facility]/CC-Serena Purcell-[phone]/Health Long-Term, Active Care Coordination(Confirmed) Active Tubular adenoma of colon - d ue 2021(Confirmed) 2 11/2015 Active lul Vick 2-2014, had cystoscopy 2014 Social History Social History Type Response Smoking Status Never smoker entered on: 08/23/16 Sex
--- OUTSIDE RECORDS SUMMARY | 2023-06-10 06:27 | XMS_ITS | Continuity of Care Document ---
Author Name Unknown Organization [facility] Address [address] [place] [address]- Care Team Providers Care Guard Entrance Registrar Name Role Phone Raiza KRISHNA, [place] Primary Care Physician [phone] Encounter [facility] Date(s): 04/05/22 - 05/05/22 [facility] [address] [place] [id number] Allergies, Adverse Reactions, Alerts Substance [...] 10/12/10 Given 1Admin Note: VIS given 05/30/10, Lebanese form 2Admin Note: VIS given, 08/2008, Lebanese form Medications amLODIPine 2.5 mg oral tablet 1 tablet, By Mouth, Daily, USE THIS DOSE INSTEAD., # 90 tablet, 5 Refills, [id number], 157.5, cm, 04/10/22 10:29:00 EDT, Height, 75, kg, 03/25/22 2:00:00 EDT, Dry Weight Start Date: 05/04/22 Status: Ordered azelastine 0.05% ophthalmic solution 1 drops, Eyes, Both, 2 times a day, PRN for allergy symptoms, For eye allergies, # 6 mL, 6 Refills,Maintenance, 02/28/22 16:27:00 EDT, [facility]/pharmacy #[id number], Label in Lebanese, 1 drops Eyes, Both 2 times a day,PRN:for allergy symptoms,Instr:For eye aller... Start Date: 02/28/22 Status: Ordered azelastine 137 mcg/inh (0.1%) nasal spray 0 Refills, Maintenance, 12/07/21 11:16:00 EST, via Dr Glover, cryptographic technician Start Date: 12/07/21 Status: Ordered baclofen 10 mg oral tablet See Instructions, JUAN RAMON JOAN TABLETA POR VIA ORAL KARLA VECES [place], # 63 tablet, Refills 0, Instructions Replace Required Details, Route to Pharmacy Electronically, [id number], 157.5, cm, 04/10/22 10:29:00 EDT, Height, 75, [...] Maintenance, 12/07/21 11:16:00 EST, via Dr Glover, cryptographic technician, Supply Start Date: 12/07/21 Status: Ordered cyclobenzaprine 5 mg oral tablet 0 Refills, Maintenance, 09/28/21 13:55:00 EST, Partial fill upon patient request if the prescription is for a schedule II opioid drug. Start Date: 09/28/21 Status: Ordered diclofenac 3% topical gel 1 application, Topically, 2 times a day, # 100 Gm, 0 Refills, Maintenance, 04/28/21 17:22:00 EDT, Gel, [facility]/pharmacy #[id number], Partial fill upon patient request if the prescription is for a schedule II opioid drug., 1 application Topically 2 times a day,... Start Date: 04/28/21 Status: Ordered Flonase 50 mcg/inh nasal spray 1 sprays, Nares, Both, Daily, # 16 Gm, 1 Refills, Maintenance, 11/30/21 10:55:00 EST, [place], [facility]/pharmacy #[id number], 1 sprays Nares, Both Daily, [...] 10:54:00 EST, Route to Pharmacy Electronically, [facility]/pharmacy #[id number], Partial fill upon patient request if the prescription is for a schedule II opioid drug... Start Date: 12/18/21 Status: Ordered LUBRICNT EYE JESSICA 0.4-0.3% Maintenance, 12/07/21 11:16:00 EST, via Dr Glover, cryptographic technician, Supply Start Date: 12/07/21 Status: Ordered minoxidil 2% topical solution 1 mL = 0.02 Gm, Topically, 2 times a day, # 60 mL, 2 Refills, Maintenance, 02/28/22 16:27:00 EDT, Solution, [facility]/pharmacy #[id number], Partial fill upon patient request if the prescription is for a scheduleII opioid drug., 1 mL Topically 2 times a day, 159,... Start Date: 02/28/22 Status: Ordered multivitamin Multiple Vitamins oral capsule 1 capsule, By Mouth, Daily, # 90 capsule, 1 Refills, Maintenance, 03/22/22 15:18:00 EDT, Capsule, [facility]/pharmacy #[id number], 1 capsule By Mouth Daily, 159, cm, 03/22/22 10:39:00 EDT, Height, 78, kg, 01/01/21 16:06:00 EDT, Dry Weight Start Date: 03/22/22 Status: Ordered NuLYTELY with Flavor Packs oral powder for reconstitution 240 mL, By Mouth, Every 10 minutes, # 1 each, 0 Refills, Maintenance, 09/21/21 9:33:00 EST, REC Powder, [facility], Partial fill upon patient request if the prescription is for a schedule II opioid drug., 240 mL By Mouth Every 10 minut... Start Date: 09/21/21 Status: Ordered [place]-3 1000 mg oral capsule via psychiatry, 0 [...] Refills, Maintenance, 01/02/22 20:52:00 EDT, Tablet, [facility]/pharmacy #[id number], Partial fill upon patient [...] 4 Refills, Maintenance, 02/28/22 16:09:00 EDT, [place], [facility]/pharmacy #[id number], Partial fill upon patient request if the prescription is for a schedule II opioid drug., 1 sprays N... Start Date: 02/28/22 Status: Ordered tamsulosin 0.4 mg oral capsule 0.4 mg, 1, capsule, By Mouth, Daily, at night (print label in monegasque), # 30 capsule, Refills 1, Tot. Refills 1, Maintenance, 09/28/21 14:03:00 EST, Route to Pharmacy Electronically, [facility], Partial fill upon patient request if the... Start Date: 09/28/21 Status: Ordered Tears Naturale Forte preserved ophthalmic solution 1 drops, Eyes, Both, 2 times a day, PRN for dry eyes, # 30 mL, 0 Refills, Maintenance, 08/28/21 14:52:00 EST, Solution, [facility]/pharmacy #[id number], Partial fill upon patient request if the prescription is for a schedule II opioid drug., 1 drops Eyes, Both 2 t... Start Date: 08/28/21 Status: Ordered tiZANidine 2 mg oral capsule 1 capsule = 2 mg, By Mouth, 3 times a day, PRN as needed for muscle spasm, # 9 capsule, 0 Refills, Maintenance, 04/28/21 17:18:00 EDT, Capsule, [id number], monegasque labeling, 159, cm, 04/28/2115:46:00 EDT, Height, 78, kg, 01/01/21 16:06:00 EDT... Start Date: 04/28/21 Stop Date: 05/01/21 Status: Ordered Tums 500 mg oral tablet, chewable 500 mg, 1, tablet, Chew, 2 times a day, # 60 tablet, Refills 5, Tot. Refills 5, Maintenance, 12/16/20 14:32:00 EST, Route to Pharmacy Electronically, [facility]/pharmacy #[id number], 159, cm, 12/16/20 13:47:00 [...] Active Obese class I(Confirmed) Active Onychomycosis(Confirmed) Active *[facility]/-Patricia [phone]/Health [facility], Active Care Coordination(Confirmed) Active Nasal septum perforation, h/ o cocaine(Confirmed) Active Muscle spasm(Confirmed) Active Tubular adenoma of colon - d ue 2021(Confirmed) 2 11/2015 Active 1 gross 2-2014, had cystoscopy 2014 Social History Social History Type Response Smoking Status Never smoker entered on: 08/23/16 Sex
--- OUTSIDE RECORDS SUMMARY | 2023-06-10 06:27 | XMS_ITS | Continuity of Care Document ---
Author Name Unknown Organization [facility] Address [address] [place] [address]- Care Team Providers Care Gravity Meter Observer Name Role Phone Bebe KRISHNA, Hugh Primary Care Physician Encounter [facility] Date(s): 01/18/21 - 02/17/21 [facility] [address] [place] [id number] Allergies, Adverse Reactions, Alerts Substance [...] 10/12/10 Given 1Admin Note: VIS given 05/30/10, [place] form 2Admin Note: VIS given, 08/2008, [place] form Medications amLODIPine 2.5 mg oral tablet 2.5 mg, 1, tablet, By Mouth, Daily, ; STOP amlodipine 5 mg. use this dose instead., # 30 tablet, Refills 11, Tot. Refills 11, Maintenance, 11/22/20 16:52:00 EST, Route to Pharmacy Electronically, [facility]/pharmacy #[id number], label all scripts in [place],... Start Date: 11/22/20 Stop Date: 11/17/21 Status: Ordered azelastine 0.05% ophthalmic solution 1 drops, Eyes, Both, 2 times a day, PRN for allergy symptoms, # 6 mL, 6 Refills, Maintenance, 01/13/21 14:54:00 EDT, [facility]/pharmacy #[id number], Label in [place], 1 drops Eyes, Both 2 times a day,PRN:for allergy symptoms, 159, cm, 01/04/21 9:23:00 EDT, Height... Start Date: 01/13/21 Status: Ordered diclofenac 1% topical gel 1 application, Topically, 4 times a day, not to exceed 32 grams/day, # 100 Gm, 2 Refills, Maintenance, 12/12/20 11:17:00 EST, Gel, [facility]/pharmacy #[id number], Label in [place]es please, 159, cm, 12/12/20 10:33:00 EST, Height, 74.1, kg, 10/20/20 16:18:00 EST, DrDonal.. Start Date: 12/12/20 Status: Ordered Flonase 50 mcg/inh nasal spray 1 sprays, Nares, Both, Daily, # 16 Gm, 1 Refills, Maintenance, 06/16/20 18:04:00 EDT, [place], [facility]/pharmacy #[id number], 159, cm, 06/08/20 13:31:00 EDT, Height Start Date: 06/16/20 Status: Ordered multivitamin Multiple Vitamins oral capsule 1 capsule, By Mouth, Daily, # 90 capsule, 1 Refills, Maintenance, 02/06/21 14:59:00 EDT, Capsule, [facility]/pharmacy #[id number], 1 capsule By Mouth Daily, [...] 4 Refills, Maintenance, 10/05/20 14:48:00EST, EC Capsule, [facility]/pharmacy #[id number], Partial fill upon patient request [...] 12/16/20 14:32:00 EST, Route to Pharmacy Electronically, [facility]/pharmacy #[id number], 159, cm, 12/16/20 13:47:00 EST, Height, 74.1, kg, 10/20/20 16:18:00 EST, Dry Weight Start Date: 12/16/20 Status: Ordered Tylenol 8 HR Arthritis Pain 650 mg oral tablet, extended release 1 tablet = 650 mg, By Mouth, Every 8 hours, # 100 tablet, 1 Refills, Acute 12/05/21 9:00:00 EST, 12/05/20 15:26:00 EST, ER Tablet, [facility]/pharmacy #[id number], 159, cm, 07/27/20 13:20:00 EDT, Height, 74.1, kg, 10/20/20 16:18:00 EST, Dry Weight Start Date: 12/05/20 Stop Date: 12/05/21 Status: Ordered Problem List Condition Effective Dates Status Health Status Inform ant Hematuria(Confirmed) 1 Active Chronic back pain(Confirmed) Active Dyslipidemia(Confirmed) Active h/o allergic rhinitis(Confirmed) Active Illiteracy(Confirmed) Active Dyspepsia(Confirmed) Active Disc displacement(Confirmed) Active [facility]CC-Serena Purcell-[phone]/[facility], Active Care Coordination(Confirmed) Active Tubular adenoma of colon - d ue 2021(Confirmed) 2 11/2015 Active 1 gross 2-2014, had cystoscopy 2014 Social History Social History Type Response Smoking Status Never smoker entered on: 08/23/16 Sex
--- OUTSIDE RECORDS SUMMARY | 2023-06-10 06:27 | XMS_ITS | Continuity of Care Document ---
Author Name Unknown Organization [facility] Address [address] [place] [address]- Care Team Providers Care Lens Silverer Name Role Phone Bebe KRISHNA, Hugh Primary Care Physician [phone] Encounter [facility] Date(s): 01/25/21 - 02/24/[address] [address] Attending Physician: Admtr, Viky Admitting Physician: Admtr, [id number] Referring Physician: Admtr, [id number] Allergies, Adverse Reactions, [...] 11/22/20 16:52:00 EST, Route to Pharmacy Electronically, [facility]/pharmacy #[id number], label all scripts in [place],... Start Date: 11/22/20 Stop Date: 11/17/21 Status: Ordered azelastine 0.05% ophthalmic solution 1 drops, Eyes, Both, 2 times a day, PRN for allergy symptoms, # 6 mL, 6 Refills, Maintenance, 01/13/21 14:54:00 EDT, [id number], Label in Kazakh, 1 drops Eyes, Both 2 times a day,PRN:for allergy symptoms, 159, cm, 01/04/21 9:23:00 EDT, Height... Start Date: 01/13/21 Status: Ordered diclofenac 1% topical gel 1 application, Topically, 4 times a day, not to exceed 32 grams/day, # 100 Gm, 2 Refills, Maintenance, 12/12/20 11:17:00 EST, Gel, [facility]/pharmacy #[id number], Label in Kazakh please, 159, cm, 12/12/20 10:33:00 EST, Height, 74.1, kg, 10/20/20 16:18:00 EST, Dr... Start Date: 12/12/20 Status: Ordered Flonase 50 mcg/inh nasal spray 1 sprays, Nares, Both, Daily, # 16 Gm, 1 Refills, Maintenance, 06/16/20 18:04:00 EDT, [place], [id number], 159, cm, 06/08/20 13:31:00 EDT, [...] 4 Refills, Maintenance, 10/05/20 14:48:00EST, EC Capsule, [facility]/pharmacy #[id number], Partial fill upon patient [...] 12/16/20 14:32:00 EST, Route to Pharmacy Electronically, [facility]/pharmacy #[id number], 159, cm, 12/16/20 13:47:00 EST, Height, 74.1, kg, 10/20/20 16:18:00 EST, Dry Weight Start Date: 12/16/20 Status: Ordered Tylenol 8 HR Arthritis Pain 650 mg oral tablet, extended release 1 tablet = 650 mg, By Mouth, Every 8 hours, # 100 tablet, 1 Refills, Acute 12/05/21 9:00:00 EST, 12/05/20 15:26:00 EST, ER Tablet, [facility]/pharmacy #[id number], 159, cm, 07/27/20 13:20:00 EDT, Height, 74.1, kg, 10/20/20 16:18:00 EST, Dry Weight Start Date: 12/05/20 Stop Date: 12/05/21 Status: Ordered Problem List Condition Effective Dates Status Health Status Inform ant Hematuria(Confirmed) 1 Active Chronic back pain(Confirmed) Active Dyslipidemia(Confirmed) Active h/o allergic rhinitis(Confirmed) Active Illiteracy(Confirmed) Active Dyspepsia(Confirmed) Active Disc displacement(Confirmed) Active [facility]CC-Serena Purcell-[phone]/[facility], Active Care Coordination(Confirmed) Active Tubular adenoma of colon - d ue 2021(Confirmed) 2 11/2015 Active lul Vick 2-2014, had cystoscopy 2014 Social History Social History Type Response Smoking Status Never smoker entered on: 08/23/16 Sex
--- OUTSIDE RECORDS SUMMARY | 2023-06-10 06:27 | XMS_ITS | Continuity of Care Document ---
Author Name Unknown Organization [facility] Address [address] [place] [address]- Care Team Providers Care Net Developer Name Role Phone Bebe KRISHNA, Hugh Primary Care Physician [phone] Encounter [facility] [place] Date(s): 09/21/20 - 10/21/20 [facility] [address] [place], [place] [address] Allergies, Adverse Reactions, Alerts Substance Reaction Severity Status penicillins Active Immunizations Given and Recorded Vaccine Date Status Refusal Reason influenza virus vaccine, inactivated 07/27/20 Give n influenza virus vaccine, inactivated 12/21/19 Give n influenza virus vaccine, inactivated 07/15/19 Give n influenza virus vaccine, inactivated 1 10/12/10 Gi jocy tetanus/diphtheria/pertussis, acel(Tdap) 2 10/12/10 Given 1Admin Note: VIS given 05/30/10, Bengali form 2Admin Note: VIS given, 08/2008, Bengali form Medications amLODIPine 5 mg oral tablet 5 mg, 1, tablet, By Mouth, Daily, # 90 tablet, Refills 10, Tot. Refills 10, Maintenance, 06/08/20 15:00:00 EDT, Route to Pharmacy Electronically, [facility]/pharmacy #[id number], 159, cm, 06/08/20 13:31:00 EDT, Height Start Date: 06/08/20 Stop Date: 02/23/23 Status: Ordered Artificial Tears preserved solution 1 drops, Eyes, Both, 2 times a day, PRN for dry eyes, # 10 mL, 0 Refills, Maintenance, 10/19/19 14:27:00 EST, [facility] 1 drops Eyes, Both 2 times a day,PRN:for dry eyes, 159, cm, 10/19/19 13:35:00 EST, Height Start Date: 10/19/19 Status: Ordered dextromethorphan 10 mg/5 mL oral syrup 10 mL = 20 mg, By Mouth, Every 4 hours, PRN as needed for cough, # 120 mL, 0 Refills, Maintenance, 06/21/20 22:41:00 EDT, Syrup, [facility]/pharmacy #[id number], 159, cm, 06/08/20 13:31:00 EDT, Height Start Date: 06/21/20 Status: Ordered Flonase 50 mcg/inh nasal spray 1 sprays, Nares, Both, 2 times a day, # 16 Gm, 1 Refills, Maintenance, 06/16/20 18:04:00 EDT, [place], [facility]/pharmacy #[id number], 1 sprays Nares, Both 2 times a day, 159, cm, 06/08/20 13:31:00 EDT, Height Start Date: 06/16/20 Status: Ordered meloxicam 15 mg oral tablet 1 tablet = 15 mg, By Mouth, Daily, # 30 tablet, 1 Refills, Maintenance, 09/12/20 13:30:00 EST, Tablet, [facility]., Partial fill upon patient request, 159, cm, 07/27/20 13:20:00 EDT, Height Start Date: 09/12/20 Stop Date: 09/13/21 Status: Ordered multivitamin Multiple Vitamins oral capsule 1 capsule, By Mouth, Daily, # 90 capsule, 11 Refills, Maintenance, 08/12/20 11:32:00 EDT, Capsule, [facility]/pharmacy #[id number], 1 capsule By Mouth Daily, 159, cm, 07/27/20 13:20:00 EDT, Height Start Date: 08/12/20 Status: Ordered Mylanta Maximum Strength oral suspension 20 mL, By Mouth, 4 times a day, between meals and at bedtime, # 240 mL, 1 Refills, Maintenance, 10/19/19 14:27:00 EST, Suspension, [facility] 20 mL By Mouth 4 times a day,Instr:between meals and at bedtime, 159, cm, 10/19/19 13:35:00... Start Date: 10/19/19 Status: Ordered omeprazole 40 mg oral enteric coated capsule 1 capsule = 40 mg, By Mouth, 2 times a day, # 60 capsule, 4 Refills, Maintenance, 10/05/20 14:48:00EST, EC Capsule, [facility]/pharmacy #[id number], Partial [...] 10/20/20 18:51:00 EST, [id number] Partial fill upon patient request if the prescription is for a schedule II opio... Start Date: 10/20/20 Stop Date: 10/27/20 Status: Ordered Tums 500 mg oral tablet, chewable 500 mg, 1, tablet, Chew, 2 times a day, # 60 tablet, Refills 3, Tot. Refills 3, Maintenance, 01/14/20 11:08:00 EDT, Route to Pharmacy Electronically, [facility], 159, cm, 12/21/19 13:52:00 EST, Height Start Date: 01/14/20 Status: Ordered Tylenol 8 HR Arthritis Pain 650 mg oral tablet, extended release 1 tablet = 650 mg, By Mouth, Every 8 hours, # 100 tablet, 1 Refills, Acute 09/11/21 13:31:00 EST, 09/12/20 13:30:00 EST, ER Tablet, [facility]., 159, cm, 07/27/20 13:20:00 EDT, Height Start Date: 09/12/20 Stop Date: 09/11/21 Status: Ordered Problem List Condition Effective Dates Status Health Status Inform ant Hematuria(Confirmed) 1 Active Chronic back pain(Confirmed) Active Dyslipidemia(Confirmed) Active h/o allergic rhinitis(Confirmed) Active Illiteracy(Confirmed) Active Dyspepsia(Confirmed) Active Disc displacement(Confirmed) Active BHN/ON[facility]ARE/CC-Serena Purcell-[phone]/[facility], Active Care Coordination(Confirmed) Active Tubular adenoma of colon - d ue 2021(Confirmed) 2 11/2015 Active 1, gross 2-2014, had cystoscopy 2014 Social History Social History Type Response Smoking Status Never smoker entered on: 08/23/16 Sex
--- OUTSIDE RECORDS SUMMARY | 2023-06-10 06:27 | XMS_ITS | Continuity of Care Document ---
Author Name Unknown Organization [facility] Address [address] [place] [address]- Care Team Providers Care Transport Specialist Name Role Phone Trenton Eastman MD Primary Care Physician Encounter [facility] Date(s): 06/12/21 - 07/12/[address] [email or web address] Attending Physician: AdmtrViky Admitting Physician: Admtr, [id number] Referring Physician: Admtr, [...] 10/12/10 Given 1Admin Note: VIS given 05/30/10, Swedish form 2Admin Note: VIS given, 08/2008, Swedish form Medications amLODIPine 2.5 mg oral tablet 2.5 mg, 1, tablet, By Mouth, Daily, ; STOP amlodipine 5 mg. use this dose instead., # 30 tablet, Refills 11, Tot. Refills 11, Maintenance, 11/22/20 16:52:00 EST, Route to Pharmacy Electronically, [facility]/pharmacy #[id number], label all scripts in HAITIAN,... Start Date: 11/22/20 Stop Date: 11/17/21 Status: Ordered azelastine 0.05% ophthalmic solution 1 drops, Eyes, Both, 2 times a day, PRN for allergy symptoms, # 6 mL, 6 Refills, Maintenance, 01/13/21 14:54:00 EDT, [facility]/pharmacy #[id number], Label in Swedish, 1 drops Eyes, Both 2 times a day,PRN:for allergy symptoms, 159, cm, 01/04/21 9:23:00 EDT, Height... Start Date: 01/13/21 Status: Ordered diclofenac 3% topical gel 1 application, Topically, 2 times a day, # 100 Gm, 0 Refills, Maintenance, 04/28/21 17:22:00 EDT, Gel, [facility]/pharmacy #[id number], Partial fill upon patient request if the prescription is for a schedule II opioid drug., 1 application Topically 2 times a day,... Start Date: 04/28/21 Status: Ordered Flonase 50 mcg/inh nasal spray 1 sprays, Nares, Both, Daily, # 16 Gm, 1 Refills, Maintenance, 06/16/20 18:04:00 EDT, [place], [facility]/pharmacy #[id number], 159, cm, 06/08/20 13:31:00 [...] 2 Refills, Maintenance, 04/13/21 10:31:00EDT, EC Capsule, [facility]/pharmacy #[id number], Partial fill upon patient [...] 0 Refills, Maintenance, 04/28/21 17:18:00 EDT, Capsule, [facility]/pharmacy #[id number], faroese labeling, 159, cm, 04/28/2115:46:00 EDT, [...] Active Disc displacement(Confirmed) Active Onychomycosis(Confirmed) Active [facility]/CC-Serena Purcell-[phone]/[facility], Active Care Coordination(Confirmed) Active Muscle spasm(Confirmed) Active Tubular adenoma of colon - d ue 2021(Confirmed) 2 11/2015 Active 1lul 2-2014, had cystoscopy 2014 Social History Social History Type Response Smoking Status Never smoker entered on: 08/23/16 Sex
--- OUTSIDE RECORDS SUMMARY | 2023-06-10 06:27 | XMS_ITS | Continuity of Care Document ---
Author Name Unknown Organization [facility] Address [address] [place] [address]- Care Team Providers Care Engineering Consultant Name Role Phone Trenton Eastman MD Primary Care Physician Encounter [facility] Date(s): 12/21/21 - 01/20/22 [facility] [address] [place] [id number] Allergies, Adverse Reactions, Alerts Substance [...] 10/12/10 Given 1Admin Note: VIS given 05/30/10, Monegasque form 2Admin Note: VIS given, 08/2008, Monegasque form Medications amLODIPine 2.5 mg oral tablet 2.5 mg, 1, tablet, By Mouth, Daily, ; STOP amlodipine 5 mg. use this dose instead., # 30 tablet, Refills 5, Tot. Refills 5, Maintenance, 11/17/21 16:52:00 EST, Route to Pharmacy Electronically,[facility]/pharmacy #[id number], label all scripts in [place]OR[place], 1... Start Date: 11/17/21 Stop Date: 05/16/22 Status: Ordered azelastine 0.05% ophthalmic solution 1 drops, Eyes, Both, 2 times a day, PRN for allergy symptoms, For eye allergies, # 6 mL, 6 Refills,Maintenance, 12/18/21 10:53:00 EST, [facility]/pharmacy #[id number], Label in Monegasque, 1 drops Eyes, Both 2 times a day,PRN:for allergy symptoms,Instr:For eye aller... Start Date: 12/18/21 Status: Ordered azelastine 137 mcg/inh (0.1%) nasal spray 0 Refills, Maintenance, 12/07/21 11:16:00 EST, via Dr Glover, defense analyst Start Date: 12/07/21 Status: Ordered buPROPion 150 [...] Refills, Maintenance, 08/28/21 14:44:00 EST, Solution, [facility]/pharmacy #[id number], Partial fill upon patient request if the prescription is for... Start Date: 08/28/21 Status: Ordered [facility] LUBRICANT EYE DROPS Maintenance, 12/07/21 11:16:00 EST, via Dr Glover, defense analyst, Supply Start Date: 12/07/21 Status: Ordered cyclobenzaprine 5 mg oral tablet 0 Refills, Maintenance, 09/28/21 13:55:00 EST, Partial fill upon patient request if the prescription is for a schedule II opioid drug. Start Date: 09/28/21 Status: Ordered diclofenac 3% topical gel 1 application, Topically, 2 times a day, # 100 Gm, 0 Refills, Maintenance, 04/28/21 17:22:00 EDT, Gel, [facility]/pharmacy #[id number], Partial fill upon patient request if the prescription is for a schedule II opioid drug., 1 application Topically 2 times a day,... Start Date: 04/28/21 Status: Ordered Flonase 50 mcg/inh nasal spray 1 sprays, Nares, Both, Daily, # 16 Gm, 1 Refills, Maintenance, 11/30/21 10:55:00 EST, Story, [facility]/pharmacy #[id number], 1 sprays Nares, Both Daily, 159, cm, 11/30/21 9:50:00 EST, Height, 78, kg, 01/01/21 16:06:00 EDT, Dry Weight Start Date: 11/30/21 Status: Ordered loratadine 10 mg oral tablet 10 mg, 1, tablet, By Mouth, Daily, # 30 tablet, Refills 5, Tot. Refills 5, Maintenance, 12/18/21 10:54:00 EST, Route to Pharmacy Electronically, [id number], Partial fill upon patient request if the prescription is for a schedule II opioid drug... Start Date: 12/18/21 Status: Ordered LUBRICNT EYE JESSICA 0.4-0.3% Maintenance, 12/07/21 11:16:00 EST, via Dr Glover, defense analyst, Supply Start Date: 12/07/21 Status: Ordered multivitamin Multiple Vitamins oral capsule 1 capsule, By Mouth, Daily, # 90 capsule, 0 Refills, Maintenance, 10/18/21 22:09:00 EST, Capsule, [facility]/pharmacy #[id number], 1 capsule By Mouth Daily, 159, cm, 10/05/21 13:26:00 EST, Height, 78, kg, 01/01/21 16:06:00 EDT, Dry Weight Start Date: 10/18/21 Status: Ordered NuLYTELY with Flavor Packs oral powder for reconstitution 240 mL, By Mouth, Every 10 minutes, # 1 each, 0 Refills, Maintenance, 09/21/21 9:33:00 EST, REC Powder, [facility] Partial fill upon patient request if the prescription is for a schedule II opioid drug., 240 mL By Mouth Every 10 minut... Start Date: 09/21/21 Status: Ordered [place]-3 1000 mg oral capsule via psychiatry, 0 Refills, Maintenance, 12/07/21 11:13:00 EST, Partial fill upon patient request ifthe prescription is for a schedule II opioid drug. Start Date: 12/07/21 Status: Ordered omeprazole 40 mg oral enteric coated capsule 1 capsule = 40 mg, By Mouth, 2 times a day, # 60 capsule, 2 Refills, Maintenance, 04/13/21 10:31:00EDT, EC Capsule, [facility]/pharmacy #[id number], Partial fill upon patient request if the prescription is for aschedule II opioid drug., 159, cm, 01/04/21 9:23:00... Start Date: 04/13/21 Stop Date: 07/12/21 Status: Ordered Lynette-Colace 50 mg-8.6 mg oral tablet 2 tablet, By Mouth, Daily at bedtime, PRN Constipation, For constipation, # 60 tablet, 0 Refills, Maintenance, 01/02/22 20:52:00 EDT, Tablet, [facility]/pharmacy #[id number], Partial fill upon patient [...] Mouth, Daily, at night (print label in kyrgyz), # 30 capsule, Refills 1, Tot. Refills 1, Maintenance, 09/28/21 14:03:00 EST, Route to Pharmacy Electronically, [facility], Partial fill upon patient request if the... Start Date: 09/28/21 Status: Ordered Tears Naturale Forte preserved ophthalmic solution 1 drops, Eyes, Both, 2 times a day, PRN for dry eyes, # 30 mL, 0 Refills, Maintenance, 08/28/21 14:52:00 EST, Solution, [facility]/pharmacy #[id number], Partial fill upon patient request if the prescription is for a schedule II opioid drug., 1 drops Eyes, Both 2 t... Start Date: 08/28/21 Status: Ordered tiZANidine 2 mg oral capsule 1 capsule = 2 mg, By Mouth, 3 times a day, PRN as needed for muscle spasm, # 9 capsule, 0 Refills, Maintenance, 04/28/21 17:18:00 EDT, Capsule, [facility]/pharmacy #[id number], kyrgyz labeling, 159, cm, 04/28/2115:46:00 EDT, Height, 78, kg, 01/01/21 16:06:00 EDT... Start Date: 04/28/21 Stop Date: 05/01/21 Status: Ordered Tums 500 mg oral tablet, chewable 500 mg, 1, tablet, Chew, 2 times a day, # 60 tablet, Refills 5, Tot. Refills 5, Maintenance, 12/16/20 14:32:00 EST, Route to Pharmacy Electronically, [facility]/pharmacy #[id number], 159, cm, 12/16/20 13:47:00 EST, Height, 74.1, kg, 10/20/20 16:18:00 EST, Dry Weight Start Date: 12/16/20 Status: Ordered Problem List Condition Effective Dates Status Health Status Inform ant Hematuria(Confirmed) 1 Active Chronic back pain(Confirmed) Active Dyslipidemia(Confirmed) Active Allergic rhinitis(Confirmed) Active Illiteracy(Confirmed) Active Dyspepsia(Confirmed) Active Disc displacement(Confirmed) Active Obese class I(Confirmed) Active Onychomycosis(Confirmed) Active *[facility]/CC-Patricia [phone]/[facility], Active Care Coordination(Confirmed) Active Nasal septum perforation, h/ o cocaine(Confirmed) Active Muscle spasm(Confirmed) Active Tubular adenoma of colon - d ue 2021(Confirmed) 2 11/2015 Active 1lul 2-2014, had cystoscopy 2014 Social History Social History Type Response Smoking Status Never smoker entered on: 08/23/16 Sex
--- OUTSIDE RECORDS SUMMARY | 2023-06-10 06:27 | XMS_ITS | Continuity of Care Document ---
Author Name Unknown Organization [facility] ter Address [address] [place] [id number]- Care Team Providers Care Composition Weatherboard Installer Name Role Phone Raiza KRISHNA, Trenton Primary Care Physician [place] [facility](s): 09/26/21 - 04/07/[address] [id number] Attending Physician: Gabe Baxter MD Admitting Physician: Gabe Baxter MD Allergies, Adverse Reactions, Alerts Substance Reaction [...] 10/12/10 Given 1Admin Note: VIS given 05/30/10, Ecuadorean form 2Admin Note: VIS given, 08/2008, Ecuadorean form Medications amLODIPine 2.5 mg oral tablet 2.5 mg, 1, tablet, By Mouth, Daily, ; STOP amlodipine 5 mg. use this dose instead., # 30 tablet, Refills 5, Tot. Refills 5, Maintenance, 11/17/21 16:52:00 EST, Route to Pharmacy Electronically,[facility]/pharmacy #[id number], label all scripts in [place], 1... Start Date: 11/17/21 Stop Date: 05/16/22 Status: Ordered azelastine 0.05% ophthalmic solution 1 drops, Eyes, Both, 2 times a day, PRN for allergy symptoms, For eye allergies, # 6 mL, 6 Refills,Maintenance, 02/28/22 16:27:00 EDT, [facility]/pharmacy #[id number], Label in Ecuadorean, 1 drops Eyes, Both 2 times a day,PRN:for allergy symptoms,Instr:For eye aller... Start Date: 02/28/22 Status: Ordered azelastine 137 mcg/inh (0.1%) nasal spray 0 Refills, Maintenance, 12/07/21 11:16:00 EST, via Dr Glover, portrait consultant Start Date: 12/07/21 Status: Ordered baclofen 10 mg oral tablet 10 mg, 1, tablet, By Mouth, 3 times a day, # 63 tablet, Refills 0, Tot. Refills 0, Maintenance, 03/27/22 10:09:00 EDT, [facility] Refills, Maintenance, 08/28/21 14:44:00 EST, Solution, [facility]/pharmacy #[id number], Partial fill upon patient request if the prescription is for... Start Date: 08/28/21 Status: Ordered Crutches See Instructions, # 1 kit, Maintenance, use for 2 weeks dx: leg injury, 03/27/22 10:10:00 EDT, Supply, 157.5, cm, 03/27/22 9:45:00 EDT, Height, 75, kg, 03/25/22 2:00:00 EDT, Dry Weight Start Date: 03/27/22 Status: Ordered [facility] LUBRICANT EYE DROPS Maintenance, 12/07/21 11:16:00 EST, via Dr Glover, portrait consultant, Supply Start Date: 12/07/21 Status: Ordered cyclobenzaprine 5 mg oral tablet 0 Refills, Maintenance, 09/28/21 13:55:00 EST, Partial fill upon patient request if the prescription is for a schedule II opioid drug. Start Date: 09/28/21 Status: Ordered diclofenac 3% topical gel 1 application, Topically, 2 times a day, # 100 Gm, 0 Refills, Maintenance, 04/28/21 17:22:00 EDT, Gel, [facility]/pharmacy #[id number], Partial fill upon patient request if the prescription is for a schedule II opioid drug., 1 application Topically 2 times a day,... Start Date: 04/28/21 Status: Ordered Flonase 50 mcg/inh nasal spray 1 sprays, Nares, Both, Daily, # 16 Gm, 1 Refills, Maintenance, 11/30/21 10:55:00 EST, [place], [facility]/pharmacy #[id number], 1 sprays Nares, Both [...] Maintenance, 12/07/21 11:16:00 EST, via Dr Glover, portrait consultant, Supply Start Date: 12/07/21 Status: Ordered minoxidil [...] Refills, Maintenance, 03/22/22 15:18:00 EDT, Capsule, [facility]/pharmacy #[id number], 1 capsule By Mouth Daily, 159, cm, 03/22/22 10:39:00 EDT, Height, 78, kg, 01/01/21 16:06:00 EDT, Dry Weight Start Date: 03/22/22 Status: Ordered naproxen 500 mg oral tablet 1 tablet = 500 mg, By Mouth, 2 times a day, for 10 days, # 20 tablet, 0 Refills, Acute 04/12/22 18:45:00 EDT, 04/02/22 18:45:00 EDT, Tablet, [facility]/pharmacy #[id number], Partial fill upon patient request if the prescription is for a schedule II opioid drug., 1... Start Date: 04/02/22 Stop Date: 04/12/22 Status: Ordered NuLYTELY with Flavor Packs oral powder for reconstitution 240 mL, By Mouth, Every 10 minutes, # 1 each, 0 Refills, Maintenance, 09/21/21 9:33:00 EST, REC Powder, [facility], Partial fill upon patient request if the prescription is for a schedule II opioid drug., 240 mL By Mouth Every 10 minut... Start Date: 09/21/21 Status: Ordered [place]-3 1000 mg oral capsule via psychiatry, 0 [...] mL, 4 Refills, Maintenance, 02/28/22 16:09:00 EDT, [place], [facility]/pharmacy #[id number], Partial fill upon patient request if the prescription is for a schedule II opioid drug., 1 sprays N... Start Date: 02/28/22 Status: Ordered tamsulosin 0.4 mg oral capsule 0.4 mg, 1, capsule, By Mouth, Daily, at night (print label in arabic), # 30 capsule, Refills 1, Tot. Refills 1, Maintenance, 09/28/21 14:03:00 EST, Route to Pharmacy Electronically, [facility], Partial fill upon patient request if [...] Refills, Maintenance, 04/28/21 17:18:00 EDT, Capsule, [facility]/pharmacy #[id number], arabic labeling, 159, cm, 04/28/2115:46:00 EDT, Height, 78, kg, 01/01/21 16:06:00 EDT... Start Date: 04/28/21 Stop Date: 05/01/21 Status: Ordered Tums 500 mg oral tablet, chewable 500 mg, 1, tablet, Chew, 2 times a day, # 60 tablet, Refills 5, Tot. Refills 5, Maintenance, 12/16/20 14:32:00 EST, Route to Pharmacy Electronically, [facility]/pharmacy #[id number], 159, cm, 12/16/20 13:47:00 [...] class I(Confirmed) Active Onychomycosis(Confirmed) Active *[facility]-Patricia [phone]/[facility], Active Care Coordination(Confirmed) Active Nasal septum perforation, h/ o cocaine(Confirmed) Active Muscle spasm(Confirmed) Active Tubular adenoma of colon - d ue 2021(Confirmed) 2 11/2015 Active 1 gross 2-2014, had cystoscopy 2014 Social History Social History Type Response Smoking Status Never smoker entered on: 08/23/16 Sex
--- OUTSIDE RECORDS SUMMARY | 2023-06-10 06:27 | XMS_ITS | Continuity of Care Document ---
Author Name Unknown Organization [facility] Address [address] [place] [address]- Care Team Providers Care Fire Engine Operator Name Role Phone Raiza KRISHNA, [place] Primary Care Physician [facility] - 02/14/23 [facility] [address] [place] [id number] Allergies, Adverse [...] inactivated 1 10/12/10 Gi jocy SARS-CoV-2 mRNA (gehqaep-[id number]) vax 06/13/22 Recorded SARS-CoV-2 (COVID-19) mRNA BNT-162b2 vac 09/13/21 Recorded SARS-CoV-2 (COVID-19) mRNA BNT-162b2 vac 02/27/21 Given SARS-CoV-2 (COVID-19) mRNA BNT-162b2 vac 02/06/21 Given tetanus-diphtheria toxoids (Td) 11/23/20 Given tetanus/diphtheria/pertussis, acel(Tdap) 2 10/12/10 Given 1Admin Note: VIS given 05/30/10, [place]ander form 2Admin Note: VIS given, 08/2008, [place] Zealander form Medications amLODIPine 5 mg oral tablet 5 mg, 1, tablet, By Mouth, Daily, # 90 tablet, Refills 3, Tot. Refills 3, Maintenance, 11/01/22 9:44:00 EST, [id number] Partial fill upon patient request ifthe prescription is for a schedule II opioid drug.,... Start Date: 11/01/22 Status: Ordered Artificial Tears preserved solution 1 drops, Eyes, Both, 2 times a day, PRN for dry eyes, # 30 mL, 2 Refills, Maintenance, 02/04/23 9:35:00 EDT, Solution, [facility]/pharmacy #[id number], Partial fill upon patient request if the prescription is fora schedule II opioid drug., 1 drops Eyes, Both 2 ti... Start Date: 02/04/23 Status: Ordered Ativan 0.5 mg oral tablet 1 tablet = 0.5 mg, By Mouth, Once, cuban label, take 30 mins to 1 hr before flight, # 2 tablet, 0Refills, Soft Stop, 10/08/22 17:54:00 EST, Tablet, [id number], Partial fill upon patient request if the prescription is for a schedule II opioi... Start Date: 10/08/22 Status: Ordered atorvastatin 40 mg oral tablet 1 tablet = 40 mg, By Mouth, Daily, # 30 tablet, 5 Refills, Maintenance, 12/19/22 14:49:00 EST, Tablet, [facility], Partial fill upon patient request if the prescription is for a schedule II opioid drug., 162.56, cm, 12/19/22 14:01:00 E... Start Date: 12/19/22 Status: Ordered azelastine 137 mcg/inh (0.1%) nasal spray 0 Refills, Maintenance, 12/07/21 11:16:00 EST, via Dr Glover, barrel polisher inside Start Date: 12/07/21 Status: Ordered baclofen 10 mg oral tablet See Instructions, TOME JOAN TABLETA POR VIA ORAL KARLA VECES AL MONICA, # 63 tablet, Refills 0, Instructions Replace Required Details, Route to Pharmacy Electronically, [id number], 157.5, cm, 04/10/22 10:29:00 EDT, Height, 75, [...] 2 times a day, Print instructions in cuban use only for toenails, # 60 mL, 1 Refills, Maintenance, 01/18/23 10:15:00 EDT, Suspension, [facility]/pharmacy #[id number], Partial fill uponpatient request if the prescription is for a sched... Start Date: 01/18/23 Status: Ordered [facility] LUBRICANT EYE DROPS Maintenance, 12/07/21 11:16:00 EST, via Dr Glover, barrel polisher inside, Supply Start Date: 12/07/21 Status: Ordered diclofenac 1% topical gel 1 application, Topically, 4 times a day, # 100 Gm, 5 Refills, Maintenance, 12/07/22 11:37:00 EST, Gel, [facility]/pharmacy #[id number], Partial fill upon [...] 2 Refills, Maintenance, 06/24/22 12:04:00 EDT, Tablet, [facility]/pharmacy #[id number], Partial fill upon patient request if the prescription is for a schedule... Start Date: 06/24/22 Stop Date: 09/22/22 Status: Ordered Flomax 0.4 mg oral capsule 0.4 mg, 1, capsule, By Mouth, Daily, # 30 capsule, Refills 5, Tot. Refills 5, Maintenance, 11/07/2310:08:00 EST, Route to Pharmacy Electronically, [facility]/pharmacy #[id number], Partial fill upon patient request if the prescription is for a schedule II opioid d... Start Date: 11/07/22 Status: Ordered ketoconazole 2% topical cream 1 application, Topically, Daily, Print instructions in cuban Use only on feet, # 60 Gm, 1 Refills, Maintenance, 01/18/23 10:16:00 EDT, Cream, [facility]/pharmacy #[id number], Partial fill upon [...] Maintenance, 12/07/21 11:16:00 EST, via Dr Glover, barrel polisher inside, Supply Start Date: 12/07/21 Status: Ordered minoxidil [...] EDT, He... Start Date: 06/11/22 Status: Ordered [place]-3 1000 mg oral capsule via psychiatry, 0 Refills, Maintenance, 12/07/21 11:13:00 EST, Partial fill upon patient request ifthe prescription is for a schedule II opioid drug. Start Date: 12/07/21 Status: Ordered omeprazole 40 mg oral enteric coated capsule See Instructions, JUAN RAMON ARTA DOS VECES AL MONICA, # 180 capsule, 1 Refills, Maintenance, 09/05/22 10:55:00 EST, [id number], 162.56, cm, 07/12/22 10:42:00 EDT, Height, 76.5, [...] 15:27:00 EDT, Tablet, [id number], label in [place] Zealander, 162.56,cm, 01/14/23 15:01:00 EDT, Height, 76.5, kg, [...] mL, 4 Refills, Maintenance, 02/28/22 16:09:00 EDT, [place], [id number], Partial fill upon patient request [...] displacement Confirmed Active Onychomycosis Confirmed Active *N/[facility]/CC-Patricia [phone]/[facility], Active Care Coordination Confirmed Active Nasal [...] Team Personnel Name: Raiza KRISHNA, [place] Position: [facility] Resident Member Role: PCP Address: Address: [address] [place] [address]- Care Team Related Persons Name: AJAY BE Address: [place] [address] Name: KAMALJIT FUCHS Address: home [address] [place] [address] [place] [id number]
--- OUTSIDE RECORDS SUMMARY | 2023-06-10 06:27 | XMS_ITS | Continuity of Care Document ---
Author Name Unknown Organization [facility] Address [address] [place] [address]- Care Team Providers Care Marine Rigger Name Role Phone Raiza KRISHNA, [place] Primary Care Physician [facility]): [facility] - 10/10/22 [facility] [address] [place] [id number] [place] Attending Physician: Lloyd Santiago MD Admitting Physician: Lloyd Santiago MD Allergies, Adverse Reactions, Alerts Substance Reaction Severity Status penicillins Superficial gravel r enid Itching Active Immunizations Given and Recorded Vaccine Date Status Refusal Reason SARS-CoV-2 mRNA (hhwzhlj-hani-lcowa) vax 06/13/22 Recorded SARS-CoV-2 (COVID-19) mRNA BNT-162b2 [...] 10/12/10 Given 1Admin Note: VIS given 05/30/10, Pakistani form 2Admin Note: VIS given, 08/2008, Pakistani form Medications amLODIPine 2.5 mg oral tablet 1 tablet, By Mouth, Daily, USE THIS DOSE INSTEAD., # 90 tablet, 5 Refills, [facility] ST[id number], 157.5, cm, 04/10/22 10:29:00 EDT, Height, 75, kg, 03/25/22 2:00:00 EDT, Dry Weight Start Date: 05/04/22 Status: Ordered Artificial Tears preserved solution 1 drops, Eyes, Both, 2 times a day, PRN for dry eyes, # 30 mL, 0 Refills, Maintenance, 09/06/22 10:24:00 EST, Solution, [facility]/pharmacy #[id number], Partial fill upon patient request if the prescription is for a schedule II opioid drug., 1 drops Eyes, Both 2 t... Start Date: 09/06/22 Status: Ordered Ativan 0.5 mg oral tablet 1 tablet = 0.5 mg, By Mouth, Once, [place] citizen label, take 30 mins to 1 hr before flight, # 2 tablet, 0Refills, Soft Stop, 10/08/22 17:54:00 EST, Tablet, [facility]/pharmacy #[id number], Partial fill upon patient request if the prescription is for a schedule II opioi... Start Date: 10/08/22 Status: Ordered azelastine 137 mcg/inh (0.1%) nasal spray 0 Refills, Maintenance, 12/07/21 11:16:00 EST, via Dr Glover, vacuum conditioner operator Start Date: 12/07/21 Status: Ordered baclofen 10 mg oral tablet See Instructions, TOME JOAN TABLETA POR VIA ORAL KARLA BERRY AL MONICA, # 63 tablet, Refills 0, Instructions Replace Required Details, Route to Pharmacy Electronically, [facility] [id number], 157.5, cm, 04/10/22 10:29:00 EDT, Height, 75, [...] 2 times a day, Print instructions in [place]chten[place] citizen, # 60 mL, 1 Refills, Maintenance, 07/11/22 11:00:00 EDT, Suspension, [facility]/pharmacy #[id number], Partial fill upon patient request if the prescription is for a schedule II opioid drug., 1... Start Date: 07/11/22 Status: Ordered [facility] LUBRICANT EYE DROPS Maintenance, 12/07/21 11:16:00 EST, via Dr Glover, vacuum conditioner operator, Supply Start Date: 12/07/21 Status: Ordered famotidine [...] Gm, 1 Refills, Maintenance, 11/30/21 10:55:00 EST, [place], [facility]/pharmacy #[id number], 1 sprays Nares, Both Daily, 159, cm, 11/30/21 9:50:00 EST, Height, 78, kg, 01/01/21 16:06:00 EDT, Dry Weight Start Date: 11/30/21 Status: Ordered loratadine 10 mg oral tablet 10 mg, 1, tablet, By Mouth, Daily, # 30 tablet, Refills 5, Tot. Refills 5, Maintenance, 12/18/21 10:54:00 EST, Route to Pharmacy Electronically, [facility]/pharmacy #[id number], Partial fill upon patient request if the prescription is for a schedule II opioid drug... Start Date: 12/18/21 Status: Ordered LUBRICNT EYE JESSICA 0.4-0.3% Maintenance, 12/07/21 11:16:00 EST, via Dr Glover, vacuum conditioner operator, Supply Start Date: 12/07/21 Status: Ordered minoxidil [...] EDT, He... Start Date: 06/11/22 Status: Ordered [place]-3 1000 mg oral capsule via psychiatry, 0 Refills, Maintenance, 12/07/21 11:13:00 EST, Partial fill upon patient request ifthe prescription is for a schedule II opioid drug. Start Date: 12/07/21 Status: Ordered omeprazole 40 mg oral enteric coated capsule See Instructions, JUAN RAMON DELGADO AL MONICA, # 180 capsule, 1 Refills, Maintenance, 09/05/22 10:55:00 EST, [id number], 162.56, cm, 07/12/22 10:42:00 EDT, Height, 76.5, [...] mL, 4 Refills, Maintenance, 02/28/22 16:09:00 EDT, [place], [facility]/pharmacy #[id number], Partial fill upon [...] displacement Confirmed Active Onychomycosis Confirmed Active *[facility]N/[facility]/CC-Mary a [phone]/[facility], Active Care Coordination Confirmed Active Nasal [...] S Resident Member Role: PCP Address: Address: [address] [place] [address] [place] [address]- Care Team Related Persons Name: AJAY BE Address: [place] [address] Name: KAMALJIT FUCHS Address: home [address] [place] [address] [address] [place] [id number]
--- OUTSIDE RECORDS SUMMARY | 2023-06-10 06:27 | XMS_ITS | Continuity of Care Document ---
Author Name Unknown Organization [facility] Address [address] [place] [address]- Care Team Providers Care Monomer Recovery Operator Name Role Phone Raiza KRISHNA, [place] Primary Care Physician [phone] [facility] - 02/16/22 [facility] [address] [place] [id number] Allergies, Adverse Reactions, [...] 10/12/10 Given 1Admin Note: VIS given 05/30/10, Taiwanese form 2Admin Note: VIS given, 08/2008, Taiwanese form Medications amLODIPine 2.5 mg oral tablet 2.5 mg, 1, tablet, By Mouth, Daily, ; STOP amlodipine 5 mg. use this dose instead., # 30 tablet, Refills 5, Tot. Refills 5, Maintenance, 11/17/21 16:52:00 EST, Route to Pharmacy Electronically,[facility]/pharmacy #[id number], label all scripts in TURK[place], 1... Start Date: 11/17/21 Stop Date: 05/16/22 Status: Ordered azelastine 0.05% ophthalmic solution 1 drops, Eyes, Both, 2 times a day, PRN for allergy symptoms, For eye allergies, # 6 mL, 6 Refills,Maintenance, 12/18/21 10:53:00 EST, [facility]/pharmacy #[id number], Label in Taiwanese, 1 drops Eyes, Both 2 times a day,PRN:for allergy symptoms,Instr:For eye aller... Start Date: 12/18/21 Status: Ordered azelastine 137 mcg/inh (0.1%) nasal spray 0 Refills, Maintenance, 12/07/21 11:16:00 EST, via Dr Glover, lean manufacturing engineer Start Date: 12/07/21 Status: Ordered buPROPion 150 [...] 1 Refills, Maintenance, 08/28/21 14:44:00 EST, Solution, [facility]/pharmacy #[id number], Partial fill upon patient request if the prescription is for... Start Date: 08/28/21 Status: Ordered [facility] LUBRICANT E[facility] DROPS Maintenance, 12/07/21 11:16:00 EST, via Dr Glover, lean manufacturing engineer, Supply Start Date: 12/07/21 Status: Ordered cyclobenzaprine 5 mg oral tablet 0 Refills, Maintenance, 09/28/21 13:55:00 EST, Partial fill upon patient request if the prescription is for a schedule II opioid drug. Start Date: 09/28/21 Status: Ordered diclofenac 3% topical gel 1 application, Topically, 2 times a day, # 100 Gm, 0 Refills, Maintenance, 04/28/21 17:22:00 EDT, Gel, [facility]/pharmacy #[id number], Partial fill upon patient request if the prescription is for a schedule II opioid drug., 1 application Topically 2 times a day,... Start Date: 04/28/21 Status: Ordered Flonase 50 mcg/inh nasal spray 1 sprays, Nares, Both, Daily, # 16 Gm, 1 Refills, Maintenance, 11/30/21 10:55:00 EST, [place], [facility]/pharmacy #[id number], 1 sprays Nares, Both Daily, 159, cm, 11/30/21 9:50:00 EST, Height, 78, kg, 01/01/21 16:06:00 EDT, Dry Weight Start Date: 11/30/21 Status: Ordered loratadine 10 mg oral tablet 10 mg, 1, tablet, By Mouth, Daily, # 30 tablet, Refills 5, Tot. Refills 5, Maintenance, 12/18/21 10:54:00 EST, Route to Pharmacy Electronically, [facility]/pharmacy #[id number], Partial fill upon patient request if the prescription is for a schedule II opioid drug... Start Date: 12/18/21 Status: Ordered LUBRICNT EYE JESSICA 0.4-0.3% Maintenance, 12/07/21 11:16:00 EST, via Dr Glover, lean manufacturing engineer, Supply Start Date: 12/07/21 Status: Ordered multivitamin Multiple Vitamins oral capsule 1 capsule, By Mouth, Daily, # 90 capsule, 0 Refills, Maintenance, 10/18/21 22:09:00 EST, Capsule, [facility]/pharmacy #[id number], 1 capsule By Mouth Daily, 159, cm, 10/05/21 13:26:00 EST, Height, 78, kg, 01/01/21 16:06:00 EDT, Dry Weight Start Date: 10/18/21 Status: Ordered NuLYTELY with Flavor Packs oral powder for reconstitution 240 mL, By Mouth, Every 10 minutes, # 1 each, 0 Refills, Maintenance, 09/21/21 9:33:00 EST, REC Powder, [facility], Partial fill upon patient request if the prescription is for a schedule II opioid drug., 240 mL By Mouth Every 10 minut... Start Date: 09/21/21 Status: Ordered [place]-3 1000 mg oral capsule via psychiatry, 0 Refills, Maintenance, 12/07/21 11:13:00 EST, Partial fill upon patient request ifthe prescription is for a schedule II opioid drug. Start Date: 12/07/21 Status: Ordered omeprazole 40 mg oral enteric coated capsule 1 capsule = 40 mg, By Mouth, 2 times a day, # 60 capsule, 2 Refills, Maintenance, 04/13/21 10:31:00EDT, EC Capsule, [facility]/pharmacy #[id number], Partial fill upon patient request if the prescription is for aschedule II opioid drug., 159, cm, 01/04/21 9:23:00... Start Date: 04/13/21 Stop Date: 07/12/21 Status: Ordered Lynette-Colace 50 mg-8.6 mg oral tablet 2 tablet, By Mouth, Daily at bedtime, PRN Constipation, For constipation, # 60 tablet, 0 Refills, Maintenance, 01/02/22 20:52:00 EDT, Tablet, [facility]/pharmacy #[id number], Partial fill upon patient request [...] 09/28/21 14:03:00 EST, Route to Pharmacy Electronically, [facility], Partial fill upon patient request if the... Start Date: 09/28/21 Status: Ordered Tears Naturale Forte preserved ophthalmic solution 1 drops, Eyes, Both, 2 times a day, PRN for dry eyes, # 30 mL, 0 Refills, Maintenance, 08/28/21 14:52:00 EST, Solution, [facility]/pharmacy #[id number], Partial fill upon patient request if the prescription is for a schedule II opioid drug., 1 drops Eyes, Both 2 t... Start Date: 08/28/21 Status: Ordered tiZANidine 2 mg oral capsule 1 capsule = 2 mg, By Mouth, 3 times a day, PRN as needed for muscle spasm, # 9 capsule, 0 Refills, Maintenance, 04/28/21 17:18:00 EDT, Capsule, [facility]/pharmacy #[id number], ukrainian labeling, 159, cm, 04/28/2115:46:00 EDT, Height, 78, kg, 01/01/21 16:06:00 EDT... Start Date: 04/28/21 Stop Date: 05/01/21 Status: Ordered Tums 500 mg oral tablet, chewable 500 mg, 1, tablet, Chew, 2 times a day, # 60 tablet, Refills 5, Tot. Refills 5, Maintenance, 12/16/20 14:32:00 EST, Route to Pharmacy Electronically, [facility]/pharmacy #[id number], 159, cm, 12/16/20 13:47:00 EST, Height, 74.1, kg, 10/20/20 16:18:00 EST, Dry Weight Start Date: 12/16/20 Status: Ordered Problem List Condition Effective Dates Status Health Status Inform ant Hematuria(Confirmed) 1 Active Chronic back pain(Confirmed) Active Dyslipidemia(Confirmed) Active Allergic rhinitis(Confirmed) Active Illiteracy(Confirmed) Active Dyspepsia(Confirmed) Active Disc displacement(Confirmed) Active Obese class I(Confirmed) Active Onychomycosis(Confirmed) Active *[facility]/CC-Patricia [phone]/[facility], Active Care Coordination(Confirmed) Active Nasal septum perforation, h/ o cocaine(Confirmed) Active Muscle spasm(Confirmed) Active Tubular adenoma of colon - d ue 2021(Confirmed) 2 11/2015 Active 1 gross 2-2014, had cystoscopy 2014 Social History Social History Type Response Smoking Status Never smoker entered on: 08/23/16 Sex
--- OUTSIDE RECORDS SUMMARY | 2023-06-10 06:27 | XMS_ITS | Continuity of Care Document ---
Author Name Unknown Organization [facility] Address [address] [place] [address]- Care Team Providers Care Court Supervisor Name Role Phone Raiza KRISHNA, [place] Primary Care Physician [facility] - 05/04/22 [facility] [address] [place] [address] Allergies, Adverse Reactions, Alerts [...] 10/12/10 Given 1Admin Note: VIS given 05/30/10, Namibian form 2Admin Note: VIS given, 08/2008, Namibian form Medications amLODIPine 2.5 mg oral tablet 1 tablet, By Mouth, Daily, USE THIS DOSE INSTEAD., # 90 tablet, 5 Refills, [facility] STORE [facility]276, 157.5, cm, 04/10/22 10:29:00 EDT, Height, 75, kg, 03/25/22 2:00:00 EDT, Dry Weight Start Date: 05/04/22 Status: Ordered azelastine 0.05% ophthalmic solution 1 drops, Eyes, Both, 2 times a day, PRN for allergy symptoms, For eye allergies, # 6 mL, 6 Refills,Maintenance, 02/28/22 16:27:00 EDT, [facility]/pharmacy #[id number], Label in Namibian, 1 drops Eyes, Both 2 times a day,PRN:for allergy symptoms,Instr:For eye aller... Start Date: 02/28/22 Status: Ordered azelastine 137 mcg/inh (0.1%) nasal spray 0 Refills, Maintenance, 12/07/21 11:16:00 EST, via Dr Glover, fly setter Start Date: 12/07/21 Status: Ordered baclofen 10 mg oral tablet See Instructions, JUAN RAMON JOAN TABLETA POR VIA ORAL KARLA VECES AL MONICA, # 63 tablet, Refills 0, Instructions Replace Required Details, Route to Pharmacy Electronically, [facility] [id number], 157.5, cm, 04/10/22 10:29:00 EDT, Height, 75, [...] Maintenance, 12/07/21 11:16:00 EST, via Dr Glover, fly setter, Supply Start Date: 12/07/21 Status: Ordered cyclobenzaprine 5 mg oral tablet 0 Refills, Maintenance, 09/28/21 13:55:00 EST, Partial fill upon patient request if the prescription is for a schedule II opioid drug. Start Date: 09/28/21 Status: Ordered diclofenac 3% topical gel 1 application, Topically, 2 times a day, # 100 Gm, 0 Refills, Maintenance, 04/28/21 17:22:00 EDT, Gel, [facility]/pharmacy #[id number], Partial fill upon patient request if the prescription is for a schedule II opioid drug., 1 application Topically 2 times a day,... Start Date: 04/28/21 Status: Ordered Flonase 50 mcg/inh nasal spray 1 sprays, Nares, Both, Daily, # 16 Gm, 1 Refills, Maintenance, 11/30/21 10:55:00 EST, [place], [facility]/pharmacy #[id number], 1 sprays Nares, [...] 12/18/21 10:54:00 EST, Route to Pharmacy Electronically, [facility]/pharmacy #[id number], Partial fill upon patient request if the prescription is for a schedule II opioid drug... Start Date: 12/18/21 Status: Ordered LUBRICNT EYE JESSICA 0.4-0.3% Maintenance, 12/07/21 11:16:00 EST, via Dr Glover, fly setter, Supply Start Date: 12/07/21 Status: Ordered minoxidil 2% topical solution 1 mL = 0.02 Gm, Topically, 2 times a day, # 60 mL, 2 Refills, Maintenance, 02/28/22 16:27:00 EDT, Solution, [facility]/pharmacy #[id number], Partial fill upon patient request if the prescription is for a scheduleII opioid drug., 1 mL Topically 2 times a day, 159,... Start Date: 02/28/22 Status: Ordered multivitamin Multiple Vitamins oral capsule 1 capsule, By Mouth, Daily, # 90 capsule, 1 Refills, Maintenance, 03/22/22 15:18:00 EDT, Capsule, [facility]/pharmacy #[id number], 1 capsule By Mouth Daily, 159, cm, 03/22/22 10:39:00 EDT, Height, 78, kg, 01/01/21 16:06:00 EDT, Dry Weight Start Date: 03/22/22 Status: Ordered NuLYTELY with Flavor Packs oral powder for reconstitution 240 mL, By Mouth, Every 10 minutes, # 1 each, 0 Refills, Maintenance, 09/21/21 9:33:00 EST, REC Powder, [facility], Partial fill upon patient request if the prescription is for a schedule II opioid drug., 240 mL By Mouth Every 10 minut... Start Date: 09/21/21 Status: Ordered [place]-3 1000 mg oral capsule via psychiatry, 0 [...] 0 Refills, Maintenance, 01/02/22 20:52:00 EDT, Tablet, [facility]/pharmacy #[id number], Partial fill upon [...] mL, 4 Refills, Maintenance, 02/28/22 16:09:00 EDT, [place], [facility]/pharmacy #[id number], Partial fill upon patient request if the prescription is for a schedule II opioid drug., 1 sprays N... Start Date: 02/28/22 Status: Ordered tamsulosin 0.4 mg oral capsule 0.4 mg, 1, capsule, By Mouth, Daily, at night (print label in anguillan), # 30 capsule, Refills 1, Tot. Refills 1, Maintenance, 09/28/21 14:03:00 EST, Route to Pharmacy Electronically, [facility], Partial fill upon patient request if the... Start Date: 09/28/21 Status: Ordered Tears Naturale Forte preserved ophthalmic solution 1 drops, Eyes, Both, 2 times a day, PRN for dry eyes, # 30 mL, 0 Refills, Maintenance, 08/28/21 14:52:00 EST, Solution, [facility]/pharmacy #[id number], Partial fill upon [...] Maintenance, 04/28/21 17:18:00 EDT, Capsule, [id number], anguillan labeling, 159, cm, 04/28/2115:46:00 EDT, Height, 78, kg, 01/01/21 16:06:00 EDT... Start Date: 04/28/21 Stop Date: 05/01/21 Status: Ordered Tums 500 mg oral tablet, chewable 500 mg, 1, tablet, Chew, 2 times a day, # 60 tablet, Refills 5, Tot. Refills 5, Maintenance, 12/16/20 14:32:00 EST, Route to Pharmacy Electronically, [facility]/pharmacy #[id number], 159, cm, 12/16/20 [...] Active Obese class I(Confirmed) Active Onychomycosis(Confirmed) Active *N/[facility]/-Patricia [phone]/[facility], Active Care Coordination(Confirmed) Active Nasal septum perforation, h/ o cocaine(Confirmed) Active Muscle spasm(Confirmed) Active Tubular adenoma of colon - d ue 2021(Confirmed) 2 11/2015 Active 1 gross 2-2014, had cystoscopy 2014 Social History Social History Type Response Smoking Status Never smoker entered on: 08/23/16 Sex
--- OUTSIDE RECORDS SUMMARY | 2023-06-10 06:27 | XMS_ITS | Continuity of Care Document ---
Author Name Unknown Organization [facility] Address [address] [place] [address]- Care Team Providers Care Improvement Manager Name Role Phone Bebe KRISHNA, Hugh Primary Care Physician [place] [facility] [place] 02[place]21 [facility] [address] [place] [id number] Allergies, Adverse Reactions, Alerts Substance [...] 10/12/10 Given 1Admin Note: VIS given 05/30/10, Honduran form 2Admin Note: VIS given, 08/2008, Honduran form Medications amLODIPine 2.5 mg oral tablet 2.5 mg, 1, tablet, By Mouth, Daily, ; STOP amlodipine 5 mg. use this dose instead., # 30 tablet, Refills 11, Tot. Refills 11, Maintenance, 11/22/20 16:52:00 EST, Route to Pharmacy Electronically, [facility]/pharmacy #[id number], label all scripts in [place],... Start Date: 11/22/20 Stop Date: 11/17/21 Status: Ordered azelastine 0.05% ophthalmic solution 1 drops, Eyes, Both, 2 times a day, PRN for allergy symptoms, # 6 mL, 6 Refills, Maintenance, 01/13/21 14:54:00 EDT, [facility]/pharmacy #[id number], Label in Honduran, 1 drops Eyes, Both 2 times a day,PRN:for allergy symptoms, 159, cm, 01/04/21 9:23:00 EDT, Height... Start Date: 01/13/21 Status: Ordered diclofenac 1% topical gel 1 application, Topically, 4 times a day, not to exceed 32 grams/day, # 100 Gm, 2 Refills, Maintenance, 12/12/20 11:17:00 EST, Gel, [facility]/pharmacy #[id number], Label in Honduran please, 159, cm, 12/12/20 10:33:00 EST, Height, 74.1, kg, 10/20/20 16:18:00 EST, DrDonal.. Start Date: 12/12/20 Status: Ordered Flonase 50 mcg/inh nasal spray 1 sprays, Nares, Both, Daily, # 16 Gm, 1 Refills, Maintenance, 06/16/20 18:04:00 EDT, [place], [facility]/pharmacy #[id number], 159, cm, 06/08/20 13:31:00 [...] Active Dyspepsia(Confirmed) Active Disc displacement(Confirmed) Active [facility]/CC-Serena Purcell-[phone]/Health Correction, Active Care Coordination(Confirmed) Active Tubular adenoma of colon - d ue 2021(Confirmed) 2 11/2015 Active 1 gross 2-2014, had cystoscopy 2014 Social History Social History Type Response Smoking Status Never smoker entered on: 08/23/16 Sex
--- OUTSIDE RECORDS SUMMARY | 2023-06-10 06:27 | XMS_ITS | Continuity of Care Document ---
Author Name Unknown Organization [facility] Adult [facility] Address [address] [place] [address]- Care Team Providers Care Clinical Informatics Manager Name Role Phone Raiza KRISHNA, Trenton Primary Care Physician Encounter [facility] Date(s): 05/09/22 - 06/08/22 [facility] [address] [place] [id number] Allergies, Adverse [...] Refills, [facility] STORE [id number], 157.5, cm, 04/10/22 10:29:00 EDT, Height, 75, kg, 03/25/22 2:00:00 EDT, Dry Weight Start Date: 05/04/22 Status: Ordered azelastine 0.05% ophthalmic solution 1 drops, Eyes, Both, 2 times a day, PRN for allergy symptoms, For eye allergies, # 6 mL, 6 Refills,Maintenance, 02/28/22 16:27:00 EDT, [facility]/pharmacy #[id number], Label in Albanian, 1 drops Eyes, Both 2 times a day,PRN:for allergy symptoms,Instr:For eye aller... Start Date: 02/28/22 Status: Ordered azelastine 137 mcg/inh (0.1%) nasal spray 0 Refills, Maintenance, 12/07/21 11:16:00 EST, via Dr Glover, plant controller Start Date: 12/07/21 Status: Ordered baclofen 10 mg oral tablet See Instructions, JUAN RAMON JOAN TABLETA POR VIA ORAL KARLA VECES AL MONICA, # 63 tablet, Refills 0, Instructions Replace Required Details, Route to Pharmacy Electronically, [facility] STORE [id number], 157.5, cm, 04/10/22 10:29:00 EDT, Height, 75, [...] Maintenance, 12/07/21 11:16:00 EST, via Dr Glover, plant controller, Supply Start Date: 12/07/21 Status: Ordered cyclobenzaprine [...] Gm, 1 Refills, Maintenance, 11/30/21 10:55:00 EST, [place], [facility]/pharmacy #[id number], 1 [...] Maintenance, 12/07/21 11:16:00 EST, via Dr Glover, plant controller, Supply Start Date: 12/07/21 Status: Ordered minoxidil 2% topical solution 1 mL = 0.02 Gm, Topically, 2 times a day, # 60 mL, 2 Refills, Maintenance, 02/28/22 16:27:00 EDT, Solution, [facility]/pharmacy #[id number], [...] 10 minut... Start Date: 09/21/21 Status: Ordered [facility]-3 1000 mg oral capsule via psychiatry, 0 [...] mL, 4 Refills, Maintenance, 02/28/22 16:09:00 EDT, [place], [facility]/pharmacy #[id number], Partial fill upon patient request if the prescription is for a schedule II opioid drug., 1 sprays N... Start Date: 02/28/22 Status: Ordered tamsulosin 0.4 mg oral capsule 0.4 mg, 1, capsule, By Mouth, Daily, at night (print label in comoran), # 30 capsule, Refills 1, Tot. Refills [...] Maintenance, 04/28/21 17:18:00 EDT, Capsule, [id number], comoran labeling, 159, cm, 04/28/2115:46:00 EDT, Height, 78, [...] Active Obese class I(Confirmed) Active Onychomycosis(Confirmed) Active [facility]Patricia [phone]/Health [facility], Active Care Coordination(Confirmed) Active Nasal septum perforation, h/ o cocaine(Confirmed) Active Muscle spasm(Confirmed) Active Tubular adenoma of colon - d ue 2021(Confirmed) 2 11/2015 Active 1 gross 2-2014, had cystoscopy 2014 Social History Social History Type Response Smoking Status Never smoker entered on: 08/23/16 Sex
--- OUTSIDE RECORDS SUMMARY | 2023-06-10 06:27 | XMS_ITS | Continuity of Care Document ---
Author Name Unknown Organization [facility] Adult [facility] Address [address] [place] [address]- Care Team Providers Care Medical Doctor Name Role Phone Raiza KRISHNA, Trenton Primary Care Physician [phone] Encounter [facility] Date(s): 01/17/23 - 02/23/23 [facility] [address] [place] [id number] Attending Physician: Not on [...] inactivated 1 10/12/10 Gi jocy SARS-CoV-2 mRNA ([id number]) vax 06/13/22 Recorded SARS-CoV-2 (COVID-19) mRNA BNT-162b2 vac 09/13/21 Recorded SARS-CoV-2 (COVID-19) mRNA BNT-162b2 vac 02/27/21 Given SARS-CoV-2 (COVID-19) mRNA BNT-162b2 vac 02/06/21 Given tetanus-diphtheria toxoids (Td) 11/23/20 Given tetanus/diphtheria/pertussis, acel(Tdap) 2 10/12/10 Given 1Admin Note: VIS given 05/30/10, Ivorian form 2Admin Note: VIS given, 08/2008, Ivorian form Medications amLODIPine 5 mg oral tablet 5 mg, 1, tablet, By Mouth, Daily, # 90 tablet, Refills 3, Tot. Refills 3, Maintenance, 11/01/22 9:44:00 EST, [id number], Partial fill upon patient request ifthe prescription is for a schedule II opioid drug.,... Start Date: 11/01/22 Status: Ordered Artificial Tears preserved solution 1 drops, Eyes, Both, 2 times a day, PRN for dry eyes, # 30 mL, 2 Refills, Maintenance, 02/04/23 9:35:00 EDT, Solution, [facility]/pharmacy #[id number], Partial fill upon patient request if the prescription is fora schedule II opioid drug., 1 drops Eyes, Both 2 ti... Start Date: 02/04/23 Status: Ordered Ativan 0.5 mg oral tablet 1 tablet = 0.5 mg, By Mouth, Once, swedish label, take 30 mins to 1 hr before flight, # 2 tablet, 0Refills, Soft Stop, 10/08/22 17:54:00 EST, Tablet, [id number], Partial fill upon patient request if the prescription is for a schedule II opioi... Start Date: 10/08/22 Status: Ordered atorvastatin 40 mg oral tablet 1 tablet = 40 mg, By Mouth, Daily, # 30 tablet, 5 Refills, Maintenance, 12/19/22 14:49:00 EST, Tablet, [facility], Partial fill upon patient request if the prescription is for a schedule II opioid drug., 162.56, cm, 12/19/22 14:01:00 E... Start Date: 12/19/22 Status: Ordered azelastine 137 mcg/inh (0.1%) nasal spray 0 Refills, Maintenance, 12/07/21 11:16:00 EST, via Dr Glover, marine consultant Start Date: 12/07/21 Status: Ordered baclofen 10 mg oral tablet See Instructions, TOME JOAN TABLETA POR VIA ORAL KARLA VECES AL MONICA, # 63 tablet, Refills 0, Instructions Replace Required Details, Route to Pharmacy Electronically, [facility] STORE [id number], 157.5, cm, 04/10/22 10:29:00 EDT, Height, 75, [...] 2 times a day, Print instructions in swedish use only for toenails, # 60 mL, 1 Refills, Maintenance, 01/18/23 10:15:00 EDT, [place], [facility]/pharmacy #[id number], Partial fill uponpatient request if the prescription is for a sched... Start Date: 01/18/23 Status: Ordered [facility] LUBRICANT EYE DROPS Maintenance, 12/07/21 11:16:00 EST, via Dr Glover, marine consultant, Supply Start Date: 12/07/21 Status: Ordered diclofenac 1% topical gel 1 application, Topically, 4 times a day, # 100 Gm, 5 Refills, Maintenance, 12/07/22 11:37:00 EST, Gel, [facility]/pharmacy #[id number], Partial fill [...] 2 Refills, Maintenance, 06/24/22 12:04:00 EDT, Tablet, [facility]/pharmacy #[id number], Partial fill upon patient request if the prescription is for a schedule... Start Date: 06/24/22 Stop Date: 09/22/22 Status: Ordered Flomax 0.4 mg oral capsule 0.4 mg, 1, capsule, By Mouth, Daily, # 30 capsule, Refills 5, Tot. Refills 5, Maintenance, 11/07/2310:08:00 EST, [facility], [facility] [...] 1 application, Topically, Daily, Print instructions in swedish Use only on feet, # 60 Gm, 1 Refills, Maintenance, 01/18/23 10:16:00 EDT, Cream, [facility]/pharmacy #[id number], Partial fill [...] Maintenance, 12/07/21 11:16:00 EST, via Dr Glover, marine consultant, Supply Start Date: 12/07/21 Status: Ordered minoxidil 2% topical solution 1 mL = 0.02 Gm, Topically, 2 times a day, # 60 mL, 2 Refills, Maintenance, 02/28/22 16:27:00 EDT, Solution, [facility]/pharmacy #[id number], Partial fill [...] EDT, He... Start Date: 06/11/22 Status: Ordered Magnet-3 1000 mg oral capsule via psychiatry, 0 Refills, Maintenance, 12/07/21 11:13:00 EST, Partial fill upon patient request ifthe prescription is for a schedule II opioid drug. Start Date: 12/07/21 Status: Ordered omeprazole 40 mg oral enteric coated capsule See Instructions, JUAN RAMON DELGADO AL MONICA, # 180 capsule, 1 Refills, Maintenance, 09/05/22 10:55:00 EST, [id number], 162.56, cm, 07/12/22 10:42:00 EDT, Height, 76.5, [...] 11 Refills, Maintenance, 01/14/23 15:27:00 EDT, Tablet, [facility]/pharmacy #[id number], label in Ivorian, 162.56,cm, 01/14/23 15:01:00 EDT, Height, 76.5, kg, 06/12/... Start Date: 01/14/23 Stop Date: 12/29/25 Status: Ordered Saline Mist 0.65% nasal spray 2 sprays, Nares, Both, 4 times a day, # 60 mL, 1 Refills, Maintenance, 02/08/23 13:50:00 EDT, [facility]/pharmacy #[id number], Partial fill upon patient request if the prescription is for a schedule II opioid drug., 2 sprays Nares, Both 4 times a day, 162.56, cm,... Start Date: 02/08/23 Status: Ordered Simply Saline 0.9% spray 1 sprays, Nares, Both, Every 30 minutes, PRN for dry nasal passages, # 45 mL, 4 Refills, Maintenance, 02/28/22 16:09:00 EDT, [place], [facility]/pharmacy #[id number], Partial fill upon patient request if the prescription is for a schedule II opioid drug., 1 sprays N... Start Date: 02/28/22 Status: Ordered Tears Naturale Forte preserved ophthalmic solution 1 drops, Eyes, Both, 2 times a day, PRN for dry eyes, # 30 mL, 0 Refills, Maintenance, 11/30/22 11:37:00 EST, Solution, [facility]/pharmacy #[id number], Partial fill [...] class I Confirmed Active Onychomycosis Confirmed Active *N/[facility]/CC-Patricia [phone]/[facility], Active Care Coordination Confirmed Active Nasal septum perforation, h/o cocaine Confirmed Active Prediabetes Confirmed Active Muscle spasm Confirmed Active Tubular adenoma of colon - due 2021 2 Confirmed 11/2015 Active 1, gross 2-2014, had cystoscopy 2014 Social History Social History Type Response Smoking Status Never smoker entered on: 08/23/16 Sex Patient Care team information Care Team Personnel Name: Trenton Eastman MD Position: [facility] Resident Member Role: PCP Address: Address: [address] [place] [address] [place] [address]- Care Team Related Persons Name: AJAY BE Address: [place] [address] Name: KAMALJIT FUCHS Address: home [address] [place] [address] [place] [id number]
--- OUTSIDE RECORDS SUMMARY | 2023-06-10 06:27 | XMS_ITS | Continuity of Care Document ---
Author Name Unknown Organization [facility] Address [address] [place] [address]- Care Team Providers Care Iuss Acoustic Analyst Name Role Phone Raiza KRISHNA, Trenton Primary Care Physician [place] [facility] [place]/23 [facility] [address] [place] [id number] Attending Physician: Lloyd Santiago MD Admitting Physician: Lloyd Santiago MD Referring Physician: Trenton Eastman MD Allergies, Adverse Reactions, Alerts Substance Reaction [...] 11/12/17 Inocente rded influenza virus vaccine, inactivated 10/12/10 Gi jocy SARS-CoV-2 mRNA ([id number]) vax 06/13/22 Recorded SARS-CoV-2 (COVID-19) mRNA BNT-162b2 vac 09/13/21 Recorded SARS-CoV-2 (COVID-19) mRNA BNT-162b2 vac 02/27/21 Given SARS-CoV-2 (COVID-19) mRNA BNT-162b2 vac 02/06/21 Given tetanus-diphtheria toxoids (Td) 11/23/20 Given tetanus/diphtheria/pertussis, acel(Tdap) 2 10/12/10 Given 1Admin Note: VIS given 05/30/10, Albanian form 2Admin Note: VIS given, 08/2008, Albanian form Medications amLODIPine 5 mg oral tablet 5 mg, 1, tablet, By Mouth, Daily, # 90 tablet, Refills 3, Tot. Refills 3, Maintenance, 11/01/22 9:44:00 EST, Route to Pharmacy Electronically, [facility]/pharmacy #[id number], Partial fill upon patient request ifthe prescription is for a schedule II opioid drug.,... Start Date: 11/01/22 Status: Ordered Artificial Tears preserved solution 1 drops, Eyes, Both, 2 times a day, PRN for dry eyes, # 30 mL, 2 Refills, Maintenance, 02/04/23 9:35:00 EDT, Solution, [facility]/pharmacy #[id number], Partial fill upon patient request if the prescription is fora schedule II opioid drug., 1 drops Eyes, Both 2 ti... Start Date: 02/04/23 Status: Ordered Ativan 0.5 mg oral tablet 1 tablet = 0.5 mg, By Mouth, Once, zambian label, take 30 mins to 1 hr before flight, # 2 tablet, 0Refills, Soft Stop, 10/08/22 17:54:00 EST, Tablet, [facility]/pharmacy #[id number], Partial fill upon patient request if the prescription is for a schedule II opioi... Start Date: 10/08/22 Status: Ordered atorvastatin 40 mg oral tablet 1 tablet = 40 mg, By Mouth, Daily, # 30 tablet, 5 Refills, Maintenance, 12/19/22 14:49:00 EST, Tablet, [facility], Partial fill upon patient request if the prescription is for a schedule II opioid drug., 162.56, cm, 12/19/22 14:01:00 E... Start Date: 12/19/22 Status: Ordered azelastine 137 mcg/inh (0.1%) nasal spray 0 Refills, Maintenance, 12/07/21 11:16:00 EST, via Dr Glover, company doctor Start Date: 12/07/21 Status: Ordered buPROPion 150 [...] 1 Refills, Maintenance, 01/18/23 10:15:00 EDT, Suspension, [facility]/pharmacy #[id number], Partial fill uponpatient request if the prescription is for a sched... Start Date: 01/18/23 Status: Ordered [facility] LUBR[facility] DROPS Maintenance, 12/07/21 11:16:00 EST, via Dr Glover, company doctor, Supply Start Date: 12/07/21 Status: Ordered diclofenac 1% topical gel 1 application, Topically, 4 times a day, # 100 Gm, 5 Refills, Maintenance, 12/07/22 11:37:00 EST, Gel, [facility]/pharmacy #[id number], Partial fill upon patient request if the prescription is for a schedule II opioid drug., 162.56, cm, 12/07/22 10:29:00 EST, [place]... Start Date: 12/07/22 Status: Ordered Eucerin Plus topical lotion 1 application, Topically, 2 times a day, PRN for dry skin, # 354 mL, 0 Refills, Maintenance, 04/19/23 15:33:00 EDT, Lotion, [facility]/pharmacy #[id number], Partial fill upon patient request if the prescription is for a schedule II opioid drug., 1 application Topi... Start Date: 04/19/23 Status: Ordered famotidine 40 mg oral tablet 1 tablet = 40 mg, By Mouth, 2 times a day, take 2x/day for 2 weeks then decrease to daily, # 60 tablet, 2 Refills, Maintenance, 06/24/22 12:04:00 EDT, Tablet, [facility]/pharmacy #[id number], Partial fill upon patient request if the prescription is for a schedule... Start Date: 06/24/22 Stop Date: 09/22/22 Status: Ordered Flomax 0.4 mg oral capsule 0.4 mg, 1, capsule, By Mouth, Daily, # 30 capsule, Refills 5, Tot. Refills 5, Maintenance, 11/07/2310:08:00 EST, Route to Pharmacy Electronically, [facility]/pharmacy #[id number], Partial fill upon [...] Maintenance, 12/07/21 11:16:00 EST, via Dr Glover, company doctor, Supply Start Date: 12/07/21 Status: Ordered multivitamin [...] EDT, He... Start Date: 06/11/22 Status: Ordered Tram-3 1000 mg oral capsule via psychiatry, 0 Refills, Maintenance, 12/07/21 11:13:00 EST, Partial fill upon patient request ifthe prescription is for a schedule II opioid drug. Start Date: 12/07/21 Status: Ordered omeprazole 40 mg oral enteric coated capsule See Instructions, JUAN RAMON KO DOS VECES AL MONICA, # 180 capsule, 1 Refills, Maintenance, 02/25/23 7:44:00 EDT, [id number], 158, cm, 02/20/23 9:30:00 EDT, Height, 76.5, [...] 15:27:00 EDT, Tablet, [id number], label in Albanian, 162.56,cm, 01/14/23 15:01:00 EDT, Height, 76.5, kg, ... Start Date: 01/14/23 Stop Date: 12/29/25 Status: Ordered Saline Mist 0.65% nasal spray 2 sprays, Nares, Both, 4 times a day, # 60 mL, 1 Refills, Maintenance, 02/08/23 13:50:00 EDT, [facility]/pharmacy #[id number], Partial fill upon patient request if the prescription is for a schedule II opioid drug., 2 sprays Nares, Both 4 times a day, 162.56, cm,... Start Date: 02/08/23 Status: Ordered Tears Naturale Forte preserved ophthalmic solution 1 drops, Eyes, Both, 2 times a day, PRN for dry eyes, # 30 mL, 0 Refills, Maintenance, 11/30/22 11:37:00 EST, Solution, [facility]/pharmacy #[id number], Partial fill upon [...] Active Onychomycosis Confirmed Active *N/[facility]/CC-Patricia [phone]/[facility], Active Care Coordination Confirmed Active Nasal septum perforation, h/o cocaine Confirmed Active Prediabetes Confirmed Active Muscle spasm Confirmed Active Tubular adenoma of colon - due 2021 2 Confirmed 11/2015 Active 1, gross 2-2014, had cystoscopy 2014 Social History Social History Type Response Smoking Status Never smoker entered on: 08/23/16 Sex Patient Care team information Care Team Personnel Name: Trenton Eastman MD Position: S Resident Member Role: PCP Address: Address: [address] [place] [address] [place] [address]- Care Team Related Persons Name: AJAY BE Address: [place] [address] Name: KAMALJIT FUCHS Address: home [address] [place] [address] [place] [id number]
--- OUTSIDE RECORDS SUMMARY | 2023-06-10 06:27 | XMS_ITS | Continuity of Care Document ---
Author Name Unknown Organization [facility] Address [address] [place] [address]- Care Team Providers Care Film Critic Name Role Phone Bebe KRISHNA, Hugh Primary Care Physician [phone] [facility] [place] 11[place]06/20 [facility] [address] [place], [place] [address] Allergies, Adverse Reactions, Alerts [...] Electronically, [facility]/pharmacy #[id number], 159, cm, 06/08/20 13:31:00 EDT, Height Start Date: 06/08/20 Stop Date: 02/23/23 Status: Ordered Artificial Tears preserved solution 1 drops, Eyes, Both, 2 times a day, PRN for dry eyes, # 10 mL, 0 Refills, Maintenance, 10/19/19 14:27:00 EST, [facility] 1 drops Eyes, Both 2 times a day,PRN:for dry eyes, 159, cm, 10/19/19 13:35:00 EST, Height Start Date: 10/19/19 Status: Ordered Flonase 50 mcg/inh nasal spray 1 sprays, Nares, Both, Daily, # 16 Gm, 1 Refills, Maintenance, 06/16/20 18:04:00 EDT, [place], [facility]/pharmacy #[id number], 159, cm, 06/08/20 13:31:00 EDT, Height Start Date: 06/16/20 Status: Ordered multivitamin Multiple Vitamins oral capsule 1 capsule, By Mouth, Daily, # 90 capsule, 11 Refills, Maintenance, 08/12/20 11:32:00 EDT, Capsule, [facility]/pharmacy #[id number], 1 capsule By Mouth Daily, 159, cm, 07/27/20 13:20:00 EDT, Height Start Date: 08/12/20 Status: Ordered Mylanta Maximum Strength oral suspension 20 mL, By Mouth, 4 times a day, between meals and at bedtime, # 240 mL, 1 Refills, Maintenance, 10/19/19 14:27:00 EST, Suspension, [facility], 20 mL By Mouth 4 times a day,Instr:between meals and at bedtime, 159, cm, 10/19/19 13:35:00... Start Date: 10/19/19 Status: Ordered omeprazole 40 mg oral enteric coated capsule 1 capsule = 40 mg, By Mouth, 2 times a day, # 60 capsule, 4 Refills, Maintenance, 10/05/20 14:48:00EST, EC Capsule, [facility]/pharmacy #[id number], Partial [...] EST, Route to Pharmacy Electronically, [facility]/pharmacy #[id number], Partial fill upon patient request if the prescription is for a schedule II opio... Start Date: 10/20/20 Stop Date: 10/27/20 Status: Ordered Tums 500 mg oral tablet, chewable 500 mg, 1, tablet, Chew, 2 times a day, # 60 tablet, Refills 3, Tot. Refills 3, Maintenance, 01/14/20 11:08:00 EDT, Route to Pharmacy Electronically, [facility], 159, cm, 12/21/19 13:52:00 EST, Height Start Date: 01/14/20 Status: Ordered Tylenol 8 HR Arthritis Pain 650 mg oral tablet, extended release 1 tablet = 650 mg, By Mouth, Every 8 hours, # 100 tablet, 1 Refills, Acute 09/11/21 13:31:00 EST, 09/12/20 13:30:00 EST, ER Tablet, [facility], 159, cm, 07/27/20 13:20:00 EDT, Height Start Date: 09/12/20 Stop Date: 09/11/21 Status: Ordered Problem List Condition Effective Dates Status Health Status Inform ant Hematuria(Confirmed) 1 Active Chronic back pain(Confirmed) Active Dyslipidemia(Confirmed) Active h/o allergic rhinitis(Confirmed) Active Illiteracy(Confirmed) Active Dyspepsia(Confirmed) Active Disc displacement(Confirmed) Active [facility]/CC-Serena Purcell-[phone]/[facility], Active Care Coordination(Confirmed) Active Tubular adenoma of colon - d ue 2021(Confirmed) 2 11/2015 Active lul Vick 2-2014, had cystoscopy 2014 Social History Social History Type Response Smoking Status Never smoker entered on: 08/23/16 Sex
--- OUTSIDE RECORDS SUMMARY | 2023-06-10 06:27 | XMS_ITS | Continuity of Care Document ---
Author Name Unknown Organization [facility] Address [address] [place] [address]- Care Team Providers Care Middle [employer] English Teacher Name Role Phone Bebe KRISHNA, Hugh Primary Care Physician [phone] En[place] [facility] [place](s): 09/10/20 - 10/12/20 [facility] [address] [place], [place] [address] Attending Physician: Lloyd Santiago MD Admitting [...] 10/12/10 Given 1Admin Note: VIS given 05/30/10, Slovak form 2Admin Note: VIS given, 08/2008, Slovak form Medications amLODIPine 5 mg oral tablet 5 mg, 1, tablet, By Mouth, Daily, # 90 tablet, Refills 10, Tot. Refills 10, Maintenance, 06/08/20 15:00:00 EDT, Route to Pharmacy Electronically, [facility]/pharmacy #[id number], 159, cm, 06/08/20 13:31:00 EDT, Height Start Date: 06/08/20 Stop Date: 02/23/23 Status: Ordered Artificial Tears preserved solution 1 drops, Eyes, Both, 2 times a day, PRN for dry eyes, # 10 mL, 0 Refills, Maintenance, 10/19/19 14:27:00 EST, [facility], 1 drops Eyes, Both 2 times a day,PRN:for dry eyes, 159, cm, 10/19/19 13:35:00 EST, Height Start Date: 10/19/19 Status: Ordered dextromethorphan 10 mg/5 mL oral syrup 10 mL = 20 mg, By Mouth, Every 4 hours, PRN as needed for cough, # 120 mL, 0 Refills, Maintenance, 06/21/20 22:41:00 EDT, Syrup, [facility]/pharmacy #[id number], 159, cm, 06/08/20 13:31:00 EDT, Height Start Date: 06/21/20 Status: Ordered Flonase 50 mcg/inh nasal spray 1 sprays, Nares, Both, 2 times a day, # 16 Gm, 1 Refills, Maintenance, 06/16/20 18:04:00 EDT, [place], [facility]/pharmacy #[id number], 1 sprays Nares, Both 2 times a day, 159, cm, 06/08/20 13:31:00 EDT, Height Start Date: 06/16/20 Status: Ordered meloxicam 15 mg oral tablet 1 tablet = 15 mg, By Mouth, Daily, # 30 tablet, 1 Refills, Maintenance, 09/12/20 13:30:00 EST, Tablet, [facility] Partial fill upon patient request, 159, cm, 07/27/20 13:20:00 EDT, Height Start Date: 09/12/20 Stop Date: 09/13/21 Status: Ordered multivitamin Multiple Vitamins oral capsule 1 capsule, By Mouth, Daily, # 90 capsule, 11 Refills, Maintenance, 08/12/20 11:32:00 EDT, Capsule, [facility]/pharmacy #[id number], 1 capsule By Mouth Daily, 159, cm, 07/27/20 13:20:00 EDT, Height Start Date: 08/12/20 Status: Ordered Mylanta Maximum Strength oral suspension 20 mL, By Mouth, 4 times a day, between meals and at bedtime, # 240 mL, 1 Refills, Maintenance, 10/19/19 14:27:00 EST, [facility], [facility] 20 mL By Mouth 4 times a day,Instr:between meals and at bedtime, 159, cm, 10/19/19 13:35:00... Start Date: 10/19/19 Status: Ordered omeprazole 40 mg oral enteric coated capsule 1 capsule = 40 mg, By Mouth, Daily, # 30 capsule, 4 Refills, Maintenance, 10/05/20 14:48:00 EST, ECCapsule, [id number], Partial fill upon patient request if the [...] 01/14/20 11:08:00 EDT, Route to Pharmacy Electronically, [facility], 159, cm, 12/21/19 13:52:00 EST, Height Start Date: 01/14/20 Status: Ordered Tylenol 8 HR Arthritis Pain 650 mg oral tablet, extended release 1 tablet = 650 mg, By Mouth, Every 8 hours, # 100 tablet, 1 Refills, Acute 09/11/21 13:31:00 EST, 09/12/20 13:30:00 EST, ER Tablet, [facility] 159, cm, 07/27/20 13:20:00 EDT, Height Start Date: 09/12/20 Stop Date: 09/11/21 Status: Ordered Problem List Condition Effective Dates Status Health Status Inform ant Hematuria(Confirmed) 1 Active Chronic back pain(Confirmed) Active Dyslipidemia(Confirmed) Active h/o allergic rhinitis(Confirmed) Active Illiteracy(Confirmed) Active Dyspepsia(Confirmed) Active Disc displacement(Confirmed) Active [facility]/CC-Serena Purcell-[phone]/[facility], Active Care Coordination(Confirmed) Active Tubular adenoma of colon - d ue 2021(Confirmed) 2 11/2015 Active 1, gross 2-2014, had cystoscopy 2014 Social History Social History Type Response Smoking Status Never smoker entered on: 08/23/16 Sex
--- OUTSIDE RECORDS SUMMARY | 2023-06-10 06:27 | XMS_ITS | Continuity of Care Document ---
Author Name Unknown Organization [facility] Address [address] [place] [address]- Care Team Providers Care Rugby League Footballer Name Role Phone Raiza KRISHNA, Trenton Primary Care Physician [phone] Encounter [facility] Date(s): 02/15/23 - 03/17/23 [facility] [address] [place] [id number] Allergies, Adverse Reactions, Alerts Substance [...] inactivated 1 10/12/10 Gi jocy SARS-CoV-2 mRNA ([id number]) vax 06/13/22 Recorded SARS-CoV-2 (COVID-19) mRNA BNT-162b2 vac 09/13/21 Recorded SARS-CoV-2 (COVID-19) mRNA BNT-162b2 vac 02/27/21 Given SARS-CoV-2 (COVID-19) mRNA BNT-162b2 vac 02/06/21 Given tetanus-diphtheria toxoids (Td) 11/23/20 Given tetanus/diphtheria/pertussis, acel(Tdap) 2 10/12/10 Given 1Admin Note: VIS given 05/30/10, Portuguese form 2Admin Note: VIS given, 08/2008, Portuguese form Medications amLODIPine 5 mg oral tablet 5 mg, 1, tablet, By Mouth, Daily, # 90 tablet, Refills 3, Tot. Refills 3, Maintenance, 11/01/22 9:44:00 EST, [id number], Partial fill upon patient request ifthe prescription is for a schedule II opioid drug.,... Start Date: 11/01/22 Status: Ordered Artificial Tears preserved solution 1 drops, Eyes, Both, 2 times a day, PRN for dry eyes, # 30 mL, 2 Refills, Maintenance, 02/04/23 9:35:00 EDT, Solution, [facility]/pharmacy #[id number], Partial fill upon patient request if the prescription is fora schedule II opioid drug., 1 drops Eyes, Both 2 ti... Start Date: 02/04/23 Status: Ordered Ativan 0.5 mg oral tablet 1 tablet = 0.5 mg, By Mouth, Once, lithuanian label, take 30 mins to 1 hr before flight, # 2 tablet, 0Refills, Soft Stop, 10/08/22 17:54:00 EST, Tablet, [id number], Partial fill upon patient request if the prescription is for a schedule II opioi... Start Date: 10/08/22 Status: Ordered atorvastatin 40 mg oral tablet 1 tablet = 40 mg, By Mouth, Daily, # 30 tablet, 5 Refills, Maintenance, 12/19/22 14:49:00 EST, Tablet, [facility], Partial fill upon patient request if the prescription is for a schedule II opioid drug., 162.56, cm, 12/19/22 14:01:00 E... Start Date: 12/19/22 Status: Ordered azelastine 137 mcg/inh (0.1%) nasal spray 0 Refills, Maintenance, 12/07/21 11:16:00 EST, via Dr Glover, filler block inserter remover Start Date: 12/07/21 Status: Ordered baclofen 10 mg oral tablet See Instructions, TOME JOAN TABLETA POR VIA ORAL KARLA VECES AL MONICA, # 63 tablet, Refills 0, Instructions Replace Required Details, Route to Pharmacy Electronically, [facility] STORE [id number], 157.5, cm, 04/10/22 10:29:00 EDT, Height, 75, [...] 2 times a day, Print instructions in lithuanian use only for toenails, # 60 mL, 1 Refills, Maintenance, 01/18/23 10:15:00 EDT, Suspension, [facility]/pharmacy #[id number], Partial fill uponpatient request if the prescription is for a sched... Start Date: 01/18/23 Status: Ordered [facility] LUBRICANT EYE DROPS Maintenance, 12/07/21 11:16:00 EST, via Dr Glover, filler block inserter remover, Supply Start Date: 12/07/21 Status: Ordered diclofenac 1% topical gel 1 application, Topically, 4 times a day, # 100 Gm, 5 Refills, Maintenance, 12/07/22 11:37:00 EST, Gel, [facility]/pharmacy #[id number], Partial fill [...] Maintenance, 11/07/2310:08:00 EST, [facility] 1 application, Topically, Daily, Print instructions in lithuanian Use only on feet, # 60 Gm, [...] Maintenance, 12/07/21 11:16:00 EST, via Dr Glover, filler block inserter remover, Supply Start Date: 12/07/21 Status: Ordered minoxidil [...] 5 Refills, Maintenance, 12/07/22 11:36:00 EST, Suspension, [facility]/pharmacy #[id number], Partial fill [...] EDT, He... Start Date: 06/11/22 Status: Ordered Foss-3 1000 mg oral capsule via psychiatry, 0 Refills, Maintenance, 12/07/21 11:13:00 EST, Partial fill upon patient request ifthe prescription is for a schedule II opioid drug. Start Date: 12/07/21 Status: Ordered omeprazole 40 mg oral enteric coated capsule See Instructions, JUAN RAMON WEBB VECES AL MONICA, # 180 capsule, 1 Refills, Maintenance, 02/25/23 7:44:00 EDT, [id number], 158, cm, 02/20/23 9:30:00 EDT, Height, 76.5, [...] 11 Refills, Maintenance, 01/14/23 15:27:00 EDT, Tablet, [facility]/pharmacy #[id number], label in Portuguese, 162.56,cm, 01/14/23 15:01:00 EDT, Height, 76.5, kg, [...] mL, 4 Refills, Maintenance, 02/28/22 16:09:00 EDT, [place], [id number], Partial fill upon patient request if the prescription is for a schedule II opioid drug., 1 sprays N... Start Date: 02/28/22 Status: Ordered Tears Naturale Forte preserved ophthalmic solution 1 drops, Eyes, Both, 2 times a day, PRN for dry eyes, # 30 mL, 0 Refills, Maintenance, 11/30/22 11:37:00 EST, Solution, [id number], Partial fill upon patient request if the [...] I Confirmed Active Onychomycosis Confirmed Active *[facility]/CC-Patricia [phone]/[facility], Active Care Coordination Confirmed Active Nasal septum perforation, h/o cocaine Confirmed Active Prediabetes Confirmed Active Muscle spasm Confirmed Active Tubular adenoma of colon - due 2021 2 Confirmed 11/2015 Active 1, gross 2-2014, had cystoscopy 2014 Social History Social History Type Response Smoking Status Never smoker entered on: 08/23/16 Sex Patient Care team information Care Team Personnel Name: Trenton Eastman MD Position: [facility] Resident Member Role: PCP Address: Address: [address] [place] [id number]- Care Team Related Persons Name: AJAY BE Address: [place] [address] Name: KAMALJIT FUCHS Address: home [address] [place] [address] [address] [place] [id number]
--- OUTSIDE RECORDS SUMMARY | 2023-06-10 06:28 | XMS_ITS | Continuity of Care Document ---
Author Name Unknown Organization [facility] Address [address] [place] [address]- Care Team Providers Care Tour Operator Name Role Phone Trenton Eastman MD Primary Care Physician [place] [facility] [place] 11/06/22 - 12/06/22 [facility] [address] [place] [id number] Allergies, Adverse Reactions, Alerts Substance Reaction [...] inactivated 1 10/12/10 Gi jocy SARS-CoV-2 mRNA ([id number]-hkycz) vax 06/13/22 Recorded SARS-CoV-2 (COVID-19) mRNA BNT-162b2 vac 09/13/21 Recorded SARS-CoV-2 (COVID-19) mRNA BNT-162b2 vac 02/27/21 Given SARS-CoV-2 (COVID-19) mRNA BNT-162b2 vac 02/06/21 Given tetanus-diphtheria toxoids (Td) 11/23/20 Given tetanus/diphtheria/pertussis, acel(Tdap) 2 10/12/10 Given 1Admin Note: VIS given 05/30/10, Palauan form 2Admin Note: VIS given, 08/2008, Palauan form Medications amLODIPine 5 mg oral tablet 5 mg, 1, tablet, By Mouth, Daily, # 90 tablet, Refills 3, Tot. Refills 3, Maintenance, 11/01/22 9:44:00 EST, [id number], Partial fill upon patient request ifthe prescription is for a schedule II opioid drug.,... Start Date: 11/01/22 Status: Ordered Artificial Tears preserved solution 1 drops, Eyes, Both, 2 times a day, PRN for dry eyes, # 30 mL, 0 Refills, Maintenance, 11/29/22 17:50:00 EST, Solution, [facility]/pharmacy #[id number], Partial [...] 0Refills, Soft Stop, 10/08/22 17:54:00 EST, Tablet, [id number], Partial fill upon patient request if the prescription is for a schedule II opioi... Start Date: 10/08/22 Status: Ordered azelastine 137 mcg/inh (0.1%) nasal spray 0 Refills, Maintenance, 12/07/21 11:16:00 EST, via Dr Glover, door hanger Start Date: 12/07/21 Status: Ordered baclofen 10 mg oral tablet See Instructions, TOME JOAN TABLETA POR VIA ORAL KARLA VECES AL MONICA, # 63 tablet, Refills 0, Instructions Replace Required Details, Route to Pharmacy Electronically, [facility] STORE [id number], 157.5, cm, 04/10/22 10:29:00 EDT, Height, 75, [...] 2 times a day, Print instructions in burkinan, # 60 mL, 1 Refills, Maintenance, 07/11/22 11:00:00 EDT, [facility], [id number], Partial fill upon patient request if the prescription is for a schedule II opioid drug., 1... Start Date: 07/11/22 Status: Ordered [facility] LUBRICANT EYE DROPS Maintenance, 12/07/21 11:16:00 EST, via Dr Glover, door hanger, Supply Start Date: 12/07/21 Status: Ordered famotidine [...] Maintenance, 12/07/21 11:16:00 EST, via Dr Glover, door hanger, Supply Start Date: 12/07/21 Status: Ordered minoxidil [...] 1 Refills, Maintenance, 09/12/22 9:06:00 EST, Capsule, [facility]/pharmacy #[id number], 1 capsule By Mouth Daily, [...] EDT, He... Start Date: 06/11/22 Status: Ordered [place]-3 1000 mg oral capsule via psychiatry, 0 Refills, Maintenance, 12/07/21 11:13:00 EST, Partial fill upon patient request ifthe prescription is for a schedule II opioid drug. Start Date: 12/07/21 Status: Ordered omeprazole 40 mg oral enteric coated capsule See Instructions, JUAN RAMON DELGADO AL MONICA, # 180 capsule, 1 Refills, Maintenance, 09/05/22 10:55:00 EST, [id number], 162.56, cm, 07/12/22 10:42:00 EDT, Height, 76.5, [...] mL, 0 Refills, Maintenance, 11/30/22 11:37:00 EST, [facility]/pharmacy #[id number], Partial fill upon patient request if the prescription is for a schedule II opioid drug., 2 sprays Nares, Both 4 times a day, 162.56, cm,... Start Date: 11/30/22 Status: Ordered Simply Saline 0.9% spray 1 sprays, Nares, Both, Every 30 minutes, PRN for dry nasal passages, # 45 mL, 4 Refills, Maintenance, 02/28/22 16:09:00 EDT, [place], [facility]/pharmacy #[id number], Partial fill upon patient request if the prescription is for a schedule II opioid drug., 1 sprays N... Start Date: 02/28/22 Status: Ordered Tears Naturale Forte preserved ophthalmic solution 1 drops, Eyes, Both, 2 times a day, PRN for dry eyes, # 30 mL, 0 Refills, Maintenance, 11/30/22 11:37:00 EST, Solution, [facility]/pharmacy #[id number], Partial [...] Confirmed Active Onychomycosis Confirmed Active *[facility]/CC-Mary gayle [phone]/[facility], Active Care Coordination Confirmed Active Nasal septum perforation, h/o cocaine Confirmed Active Muscle spasm Confirmed Active Tubular adenoma of colon - due 2021 2 Confirmed 11/2015 Active 1, gross 2-2014, had cystoscopy 2014 Social History Social History Type Response Smoking Status Never smoker entered on: 08/23/16 Sex Patient Care team information Care Team Personnel Name: Raiza KRISHNA, Trenton Position: [facility] Resident Member Role: PCP Address: Address: [address] [place] [address] [place] [address]- Care Team Related Persons Name: AJAY BE Address: [place] [address] Name: KAMALJIT FUCHS Address: home [address] [place] [address] [place] [id number]
--- OUTSIDE RECORDS SUMMARY | 2023-06-10 06:28 | XMS_ITS | Continuity of Care Document ---
Author Name Unknown Organization [facility] Address [address] [place] [address]- Care Team Providers Care Air Intercept Controller Name Role Phone Melvi KRISHNA, Samuel Palacios Primary Care Physician [place] [facility] [place]20 [facility] [address] [place] [address]- [facility] Attending Physician: Not on Staff, Attending MD Allergies, Adverse Reactions, Alerts Substance Reaction Severity Status penicillins Active Immunizations Given and Recorded Vaccine Date Status Refusal Reason influenza virus vaccine, inactivated 12/21/19 Give n influenza virus vaccine, inactivated 07/15/19 Give n influenza virus vaccine, inactivated 1 10/12/10 Gi jocy tetanus/diphtheria/pertussis, acel(Tdap) 2 10/12/10 Given 1Admin Note: VIS given 05/30/10, Montenegrin form 2Admin Note: VIS given, 08/2008, Montenegrin form Medications Artificial Tears preserved solution 1 drops, Eyes, Both, 2 times a day, PRN for dry eyes, # 10 mL, 0 Refills, Maintenance, 10/19/19 14:27:00 EST, [facility], 1 drops Eyes, Both 2 [...] 3 Refills, Maintenance, 01/06/20 14:22:00 EDT, Tablet, [facility] 159, cm, 12/21/19 13:52:00 EST, Height Start Date: 01/06/20 Stop Date: 05/05/20 Status: Ordered Mylanta Maximum Strength oral suspension 20 mL, By Mouth, 4 times a day, between meals and at bedtime, # 240 mL, 1 Refills, Maintenance, 10/19/19 14:27:00 EST, Suspension, [facility]., 20 mL By Mouth 4 times a day,Instr:between meals and at bedtime, 159, cm, 10/19/19 13:35:00... Start Date: 10/19/19 Status: Ordered omeprazole 40 mg oral enteric coated capsule 1 capsule = 40 mg, By Mouth, Daily, # 30 capsule, 2 Refills, Maintenance, 01/14/20 11:09:00 EDT, ECCapsule, [facility] 159, cm, 12/21/19 13:52:00 EST, [...] EDT, Route to Pharmacy Electronically, [facility] 159, cm, 12/21/19 13:52:00 EST, Height Start Date: 01/14/20 Status: Ordered Problem List Condition Effective Dates Status Health Status Inform ant Hematuria(Confirmed) 1 Active Chronic back pain(Confirmed) Active Depression(Confirmed) Active Dyslipidemia(Confirmed) Active h/o allergic rhinitis(Confirmed) Active Illiteracy(Confirmed) Active Disc displacement(Confirmed) Active *[facility], (Confirmed) 08/06/18 Active N/[facility]-Serena Purcell-[phone]/Health [facility], Active Care Coordination(Confirmed) Active Tubular adenoma of colon - d ue 2021(Confirmed) 2 11/2015 Active lul Vick 2-2014, had cystoscopy 2014 Social History Social History Type Response Smoking Status Never smoker entered on: 08/23/16 Sex
--- OUTSIDE RECORDS SUMMARY | 2023-06-10 06:28 | XMS_ITS | Continuity of Care Document ---
Author Name Unknown Organization [facility] Address [address] [place] [address]- Care Team Providers Care Call Center Coordinator Name Role Phone Bebe KRISHNA, Hugh Primary Care Physician [phone] Encounter [facility] [place] Date(s): 06/23/20 - 08/10/20 [facility] [address] [place] [address]- [facility] Attending Physician: Lloyd Santiago MD Admitting Physician: [...] 06/08/20 15:00:00 EDT, Route to Pharmacy Electronically, [facility]/pharmacy #[id number], 159, cm, 06/08/20 13:31:00 EDT, Height Start Date: 06/08/20 Stop Date: 02/23/23 Status: Ordered Artificial Tears preserved solution 1 drops, Eyes, Both, 2 times a day, PRN for dry eyes, # 10 mL, 0 Refills, Maintenance, 10/19/19 14:27:00 EST, [facility], 1 drops Eyes, Both 2 times a day,PRN:for dry eyes, 159, cm, 10/19/19 13:35:00 EST, Height Start Date: 10/19/19 Status: Ordered dextromethorphan 10 mg/5 mL oral syrup 10 mL = 20 mg, By Mouth, Every 4 hours, PRN as needed for cough, # 120 mL, 0 Refills, Maintenance, 06/21/20 22:41:00 EDT, Syrup, [facility]/pharmacy #[id number], 159, cm, 06/08/20 13:31:00 EDT, Height Start Date: 06/21/20 Status: Ordered Flonase 50 mcg/inh nasal spray 1 sprays, Nares, Both, 2 times a day, # 16 Gm, 1 Refills, Maintenance, 06/16/20 18:04:00 EDT, [place], [facility]/pharmacy #[id number], 1 sprays Nares, Both 2 times [...] Daily, # 30 tablet, 0 Refills, Maintenance, 07/27/20 14:05:00 EDT, Tablet, [facility], 159, cm, 07/27/20 13:20:00 EDT, Height Start Date: 07/27/20 Status: Ordered Mylanta Maximum Strength oral suspension 20 mL, By Mouth, 4 times a day, between meals and at bedtime, # 240 mL, 1 Refills, Maintenance, 10/19/19 14:27:00 EST, Suspension, [facility] 20 mL By Mouth 4 times a day,Instr:between meals and at bedtime, 159, cm, 10/19/19 13:35:00... Start Date: 10/19/19 Status: Ordered omeprazole 20 mg oral delayed release tablet 1 tablet = 20 mg, By Mouth, 2 times a day, # 60 tablet, 4 Refills, Maintenance, 07/27/20 13:58:00 EDT, EC Tablet, [facility]/pharmacy #[id number], 159, cm, 07/27/20 13:20:00 EDT, Height Start Date: 07/27/20 Status: Ordered prazosin 2 mg oral capsule via Syl Riley, Psychiatry, 0 Refills, Maintenance, 11/04/19 14:42:00 EST Start Date: 11/04/19 Status: Ordered QUEtiapine 200 mg oral tablet via Sylliban Riley, Psychiatry, Refills 0, Maintenance, 11/04/19 14:42:00 EST Start Date: 11/04/19 Status: Ordered Tums 500 mg oral tablet, chewable 500 mg, 1, tablet, Chew, 2 times a day, # 60 tablet, Refills 3, Tot. Refills 3, Maintenance, 01/14/20 11:08:00 EDT, Route to Pharmacy Electronically, [facility], 159, cm, 12/21/19 13:52:00 EST, Height Start Date: 01/14/20 Status: Ordered Tylenol 8 HR Arthritis Pain 650 mg oral tablet, extended release 1 tablet = 650 mg, By Mouth, Every 8 hours, # 100 tablet, 1 Refills, Acute 07/28/22 14:05:00 EDT, 07/27/20 14:05:00 EDT, ER Tablet, [facility], 159, cm, 07/27/20 13:20:00 EDT, Height Start Date: 07/27/20 Stop Date: 07/28/22 Status: Ordered Problem List Condition Effective Dates Status Health Status Inform ant Hematuria(Confirmed) 1 Active Chronic back pain(Confirmed) Active Depression(Confirmed) Active Dyslipidemia(Confirmed) Active h/o allergic rhinitis(Confirmed) Active Illiteracy(Confirmed) Active Dyspepsia(Confirmed) Active Disc displacement(Confirmed) Active *[facility], (Confirmed) 08/06/18 Active N/[facility]/CC-Serena Purcell-[phone]/Health [facility], Active Care Coordination(Confirmed) Active Tubular adenoma of colon - d ue 2022(Confirmed) 2 11/2015 Active 1, gross 2-2014, had cystoscopy 2014 Social History Social History Type Response Smoking Status Never smoker entered on: 08/23/16 Sex
--- OUTSIDE RECORDS SUMMARY | 2023-06-10 06:28 | XMS_ITS | Continuity of Care Document ---
Author Name Unknown Organization [facility] Address [address] [place] [address]- Care Team Providers Care Fleet Director Name Role Phone Trenton Eastman MD Primary Care Physician [phone] [place] [facility] [place] 08/11/22 [facility] [address], [place] [address] Allergies, Adverse Reactions, Alerts Substance Reaction Severity Status penicillins Superficial gravel r enid Itching Active Immunizations Given and Recorded Vaccine Date Status Refusal Reason SARS-CoV-2 mRNA ([id number]) vax 06/13/22 Recorded SARS-CoV-2 (COVID-19) mRNA BNT-162b2 [...] 10/12/10 Given 1Admin Note: VIS given 05/30/10, Icelandic form 2Admin Note: VIS given, 08/2008, Icelandic form Medications amLODIPine 2.5 mg oral tablet 1 tablet, By Mouth, Daily, USE THIS DOSE INSTEAD., # 90 tablet, 5 Refills, [id number], 157.5, cm, 04/10/22 10:29:00 EDT, Height, 75, kg, 03/25/22 2:00:00 EDT, Dry Weight Start Date: 05/04/22 Status: Ordered azelastine 0.05% ophthalmic solution 1 drops, Eyes, Both, 2 times a day, PRN for allergy symptoms, For eye allergies, # 6 mL, 6 Refills,Maintenance, 02/28/22 16:27:00 EDT, [id number], Label in Icelandic, 1 drops Eyes, Both 2 times a day,PRN:for allergy symptoms,Instr:For eye aller... Start Date: 02/28/22 Status: Ordered azelastine 137 mcg/inh (0.1%) nasal spray 0 Refills, Maintenance, 12/07/21 11:16:00 EST, via Dr Glover, marriage and family teacher Start Date: 12/07/21 Status: Ordered baclofen 10 mg oral tablet See Instructions, JUAN RAMON FARNCO TABLETA POR VIA ORAL KARLA BERRY AL MONICA, # 63 tablet, Refills 0, Instructions Replace Required Details, Route to Pharmacy Electronically, [id number], 157.5, cm, 04/10/22 10:29:00 EDT, Height, 75, [...] 1 Refills, Maintenance, 08/28/21 14:44:00 EST, Solution, [facility]/pharmacy #[id number], Partial fill upon patient request if the prescription is for... Start Date: 08/28/21 Status: Ordered ciclopirox topical 0.77% suspension 1 application, Topically, 2 times a day, Print instructions in indian, # 60 mL, 1 Refills, Maintenance, 07/11/22 11:00:00 EDT, Suspension, [facility]/pharmacy #[id number], Partial fill upon patient request if the prescription is for a schedule II opioid drug., 1... Start Date: 07/11/22 Status: Ordered clotrimazole 1% topical cream 1 application, Topically, 2 times a day, Print instructions in indian Apply to groin area, face, and also in between digits on both feet, # 100 Gm, 0 Refills, Maintenance, 07/11/22 11:00:00 EDT, Cream, [facility]/pharmacy #[id number], Partial fill upon patient r... Start Date: 07/11/22 Status: Ordered [facility] LUBRICANT EYE DROPS Maintenance, 12/07/21 11:16:00 EST, via Dr Glover, marriage and family teacher, Supply Start Date: 12/07/21 Status: Ordered cyclobenzaprine 5 mg oral tablet 0 Refills, Maintenance, 09/28/21 13:55:00 EST, Partial fill upon patient request if the prescription is for a schedule II opioid drug. Start Date: 09/28/21 Status: Ordered diclofenac 3% topical gel 1 application, Topically, 2 times a day, # 100 Gm, 0 Refills, Maintenance, 04/28/21 17:22:00 EDT, Gel, [facility]/pharmacy #[id number], Partial fill upon patient [...] 2 Refills, Maintenance, 06/24/22 12:04:00 EDT, Tablet, [facility]/pharmacy #[id number], Partial fill upon patient request if the prescription is for a schedule... Start Date: 06/24/22 Stop Date: 09/22/22 Status: Ordered Flonase 50 mcg/inh nasal spray 1 sprays, Nares, Both, Daily, # 16 Gm, 1 Refills, Maintenance, 11/30/21 10:55:00 EST, [place], [facility]/pharmacy #[id number], 1 sprays Nares, Both Daily, 159, cm, 11/30/21 9:50:00 EST, Height, 78, kg, 01/01/21 16:06:00 EDT, Dry Weight Start Date: 11/30/21 Status: Ordered loratadine 10 mg oral tablet 10 mg, 1, tablet, By Mouth, Daily, # 30 tablet, Refills 5, Tot. Refills 5, Maintenance, 12/18/21 10:54:00 EST, [id number] Partial fill upon patient request if the prescription is for a schedule II opioid drug... Start Date: 12/18/21 Status: Ordered LUBRICNT EYE JESSICA 0.4-0.3% Maintenance, 12/07/21 11:16:00 EST, via Dr Glover, marriage and family teacher, Supply Start Date: 12/07/21 Status: Ordered minoxidil 2% topical solution 1 mL = 0.02 Gm, Topically, 2 times a day, # 60 mL, 2 Refills, Maintenance, 02/28/22 16:27:00 EDT, Solution, [id number], Partial fill upon patient request if the prescription is for a scheduleII opioid drug., 1 mL Topically 2 times a day, 159,... Start Date: 02/28/22 Status: Ordered multivitamin Multiple Vitamins oral capsule 1 capsule, By Mouth, Daily, # 90 capsule, 1 Refills, Maintenance, 03/22/22 15:18:00 EDT, Capsule, [facility]/pharmacy #[id number], 1 capsule By Mouth Daily, 159, cm, 03/22/22 10:39:00 EDT, Height, 78, kg, 01/01/21 16:06:00 EDT, Dry Weight Start Date: 03/22/22 Status: Ordered NuLYTELY with Flavor Packs oral powder for reconstitution 240 mL, By Mouth, Every 10 minutes, # 1 each, 0 Refills, Maintenance, 09/21/21 9:33:00 EST, [facility] fill upon patient request [...] EDT, He... Start Date: 06/11/22 Status: Ordered Brunson-3 1000 mg oral capsule via psychiatry, 0 Refills, Maintenance, 12/07/21 11:13:00 EST, Partial fill upon patient request ifthe prescription is for a schedule II opioid drug. Start Date: 12/07/21 Status: Ordered omeprazole 40 mg oral enteric coated capsule 1 capsule = 40 mg, By Mouth, 2 times a day, # 60 capsule, 2 Refills, Maintenance, 06/11/22 8:55:00 EDT, EC Capsule, [facility]/pharmacy #[id number], Partial fill upon patient request if the prescription is for a schedule II opioid drug., 157.5, cm, 04/10/22 10:29:... Start Date: 06/11/22 Stop Date: 09/09/22 Status: Ordered Lynette-Colace 50 mg-8.6 mg oral tablet 2 tablet, By Mouth, Daily at bedtime, PRN Constipation, For constipation, # 60 tablet, 0 Refills, Maintenance, 01/02/22 20:52:00 EDT, Tablet, [facility]/pharmacy #[id number], Partial fill upon patient [...] mL, 4 Refills, Maintenance, 02/28/22 16:09:00 EDT, [place], [id number], Partial fill upon patient request if the prescription is for a schedule II opioid drug., 1 sprays N... Start Date: 02/28/22 Status: Ordered tamsulosin 0.4 mg oral capsule 0.4 mg, 1, capsule, By Mouth, Daily, at night (print label in indian), # 30 capsule, Refills 1, Tot. Refills 1, Maintenance, 09/28/21 14:03:00 EST, Route to Pharmacy Electronically, [facility], Partial fill upon patient request if the... Start Date: 09/28/21 Status: Ordered Tears Naturale Forte preserved ophthalmic solution 1 drops, Eyes, Both, 2 times a day, PRN for dry eyes, # 30 mL, 0 Refills, Maintenance, 08/28/21 14:52:00 EST, Solution, [facility]/pharmacy #[id number], Partial fill upon patient request if the prescription is for a schedule II opioid drug., 1 drops Eyes, Both 2 t... Start Date: 08/28/21 Status: Ordered tiZANidine 2 mg oral capsule 1 capsule = 2 mg, By Mouth, 3 times a day, PRN as needed for muscle spasm, # 9 capsule, 0 Refills, Maintenance, 04/28/21 17:18:00 EDT, Capsule, [facility]/pharmacy #[id number], indian labeling, 159, cm, 04/28/2115:46:00 EDT, Height, 78, kg, 01/01/21 16:06:00 EDT... Start Date: 04/28/21 Stop Date: 05/01/21 Status: Ordered Tums 500 mg oral tablet, chewable 500 mg, 1, tablet, Chew, 2 times a day, # 60 tablet, Refills 5, Tot. Refills 5, Maintenance, 12/16/20 14:32:00 EST, Route to Pharmacy Electronically, [facility]/pharmacy #[id number], 159, cm, 12/16/20 13:47:00 EST, Height, [...] Confirmed Active Onychomycosis Confirmed Active *[facility]/CC-Mary a [phone]/[facility] [place], Active Care Coordination Confirmed Active Nasal septum perforation, h/o cocaine Confirmed Active Muscle spasm Confirmed Active Tubular adenoma of colon - due 2021 2 Confirmed 11/2015 Active 1, gross 2-2014, had cystoscopy 2014 Social History Social History Type Response Smoking Status Never smoker entered on: 08/23/16 Sex Patient Care team information Personnel Name: Trenton Eastman MD Address: Address: [address] [place] [address] [place], [place] [address]
--- OUTSIDE RECORDS SUMMARY | 2023-06-10 06:28 | XMS_ITS | Continuity of Care Document ---
Author Name Unknown Organization [facility] Address [address] [place] [address]- Care Team Providers Care Rustic Terrazzo Setter Name Role Phone Raiza KRISHNA, Trenton Primary Care Physician [phone] Encounter [facility] Date(s): 05/30/22 - 06/29/22 [facility] [address] [place] [id number] Allergies, Adverse Reactions, Alerts Substance Reaction Severity Status penicillins Superficial gravel r enid Itching Active Immunizations Given and Recorded Vaccine Date Status Refusal Reason SARS-CoV-2 mRNA ([id number]) vax 06/13/22 Recorded SARS-CoV-2 (COVID-19) mRNA BNT-162b2 [...] DOSE INSTEAD., # 90 tablet, 5 Refills, [id number], 157.5, cm, 04/10/22 10:29:00 EDT, Height, 75, kg, 03/25/22 2:00:00 EDT, Dry Weight Start Date: 05/04/22 Status: Ordered azelastine 0.05% ophthalmic solution 1 drops, Eyes, Both, 2 times a day, PRN for allergy symptoms, For eye allergies, # 6 mL, 6 Refills,Maintenance, 02/28/22 16:27:00 EDT, [id number], Label in Georgian, 1 drops Eyes, Both 2 times a day,PRN:for allergy symptoms,Instr:For eye aller... Start Date: 02/28/22 Status: Ordered azelastine 137 mcg/inh (0.1%) nasal spray 0 Refills, Maintenance, 12/07/21 11:16:00 EST, via Dr Glover, film printer Start Date: 12/07/21 Status: Ordered baclofen 10 mg oral tablet See Instructions, JUAN RAMON JOAN TABLETA POR VIA ORAL KARLA VECES AL MONICA, # 63 tablet, Refills 0, Instructions Replace Required Details, Route to Pharmacy Electronically, [id number], 157.5, cm, 04/10/22 10:29:00 EDT, Height, 75, [...] 1 Refills, Maintenance, 08/28/21 14:44:00 EST, Solution, [facility]/pharmacy #[id number], Partial fill upon patient request if the prescription is for... Start Date: 08/28/21 Status: Ordered clotrimazole 1% topical cream 1 application, Topically, 2 times a day, for 14 days, # 60 Gm, 1 Refills, Acute 07/11/22 11:08:00 EDT, 06/13/22 11:08:00 EDT, Cream, [facility]/pharmacy #[id number], Partial fill upon patient request if the prescription is for a schedule II opioid drug., 1 applica... Start Date: 06/13/22 Stop Date: 07/11/22 Status: Ordered [facility] LUBRICANT EYE DROPS Maintenance, 12/07/21 11:16:00 EST, via Dr Glover, film printer, Supply Start Date: 12/07/21 Status: Ordered cyclobenzaprine 5 mg oral tablet 0 Refills, Maintenance, 09/28/21 13:55:00 EST, Partial fill upon patient request if the prescription is for a schedule II opioid drug. Start Date: 09/28/21 Status: Ordered diclofenac 3% topical gel 1 application, Topically, 2 times a day, # 100 Gm, 0 Refills, Maintenance, 04/28/21 17:22:00 EDT, Gel, [facility]/pharmacy #[id number], Partial fill [...] Gm, 1 Refills, Maintenance, 11/30/21 10:55:00 EST, [place], [facility]/pharmacy #[id number], 1 sprays Nares, Both Daily, 159, cm, 11/30/21 9:50:00 EST, Height, 78, kg, 01/01/21 16:06:00 EDT, Dry Weight Start Date: 11/30/21 Status: Ordered loratadine 10 mg oral tablet 10 mg, 1, tablet, By Mouth, Daily, # 30 tablet, Refills 5, Tot. Refills 5, Maintenance, 12/18/21 10:54:00 EST, Route to Pharmacy Electronically, [facility]/pharmacy #[id number], Partial fill upon patient request if the prescription is for a schedule II opioid drug... Start Date: 12/18/21 Status: Ordered LUBRICNT EYE JESSICA 0.4-0.3% Maintenance, 12/07/21 11:16:00 EST, via Dr Glover, film printer, Supply Start Date: 12/07/21 Status: Ordered minoxidil 2% topical solution 1 mL = 0.02 Gm, Topically, 2 times a day, # 60 mL, 2 Refills, Maintenance, 02/28/22 16:27:00 EDT, Solution, [facility]/pharmacy #[id number], Partial fill upon patient request if the prescription is for a scheduleII opioid drug., 1 mL Topically 2 times a day, 159,... Start Date: 02/28/22 Status: Ordered multivitamin Multiple Vitamins oral capsule 1 capsule, By Mouth, Daily, # 90 capsule, 1 Refills, Maintenance, 03/22/22 15:18:00 EDT, Capsule, [facility]/pharmacy #[id number], 1 capsule By Mouth Daily, 159, cm, 03/22/22 10:39:00 EDT, Height, 78, kg, 01/01/21 16:06:00 EDT, Dry Weight Start Date: 03/22/22 Status: Ordered NuLYTELY with Flavor Packs oral powder for reconstitution 240 mL, By Mouth, Every 10 minutes, # 1 each, 0 Refills, Maintenance, 09/21/21 9:33:00 EST, REC Powder, [facility], Partial fill upon patient request if the prescription is for a schedule II opioid drug., 240 mL By Mouth Every 10 minut... Start Date: 09/21/21 Status: Ordered NuLYTELY with Flavor Packs oral powder for reconstitution See Instructions, per GI office, # 4,000 mL, 0 Refills, Maintenance, 06/11/22 9:43:00 EDT, [facility]/pharmacy #[id number], Partial fill upon patient request if the prescription is for a schedule II opioid drug.,per GI office, 157.5, cm, 04/10/22 10:29:00 EDT, He... Start Date: 06/11/22 Status: Ordered Smith[place]-3 1000 mg oral capsule via psychiatry, 0 Refills, Maintenance, 12/07/21 11:13:00 EST, Partial fill upon patient request ifthe prescription is for a schedule II opioid drug. Start Date: 12/07/21 Status: Ordered omeprazole 40 mg oral enteric coated capsule 1 capsule = 40 mg, By Mouth, 2 times a day, # 60 capsule, 2 Refills, Maintenance, 06/11/22 8:55:00 EDT, EC Capsule, [facility]/pharmacy #[id number], Partial fill upon patient request if the prescription is for a schedule II opioid drug., 157.5, cm, 04/10/22 10:29:... Start Date: 06/11/22 Stop Date: 09/09/22 Status: Ordered Lynette-Colace 50 mg-8.6 mg oral tablet 2 tablet, By Mouth, Daily at bedtime, PRN Constipation, For constipation, # 60 tablet, 0 Refills, Maintenance, 01/02/22 20:52:00 EDT, Tablet, [facility]/pharmacy #[id number], Partial [...] mL, 4 Refills, Maintenance, 02/28/22 16:09:00 EDT, [place], [facility]/pharmacy #[id number], Partial fill upon patient request if the prescription is for a schedule II opioid drug., 1 sprays N... Start Date: 02/28/22 Status: Ordered tamsulosin 0.4 mg oral capsule 0.4 mg, 1, capsule, By Mouth, Daily, at night (print label in sri lankan), # 30 capsule, Refills 1, Tot. Refills 1, Maintenance, 09/28/21 14:03:00 EST, Route to Pharmacy Electronically, [facility], Partial fill upon patient request if the... Start Date: 09/28/21 Status: Ordered Tears Naturale Forte preserved ophthalmic solution 1 drops, Eyes, Both, 2 times a day, PRN for dry eyes, # 30 mL, 0 Refills, Maintenance, 08/28/21 14:52:00 EST, Solution, [facility]/pharmacy #[id number], Partial [...] 0 Refills, Maintenance, 04/28/21 17:18:00 EDT, Capsule, [facility]/pharmacy #[id number], sri lankan labeling, 159, cm, 04/28/2115:46:00 EDT, Height, 78, kg, 01/01/21 16:06:00 EDT... Start Date: 04/28/21 Stop Date: 05/01/21 Status: Ordered Tums 500 mg oral tablet, chewable 500 mg, 1, tablet, Chew, 2 times a day, # 60 tablet, Refills 5, Tot. Refills 5, Maintenance, 12/16/20 14:32:00 EST, Route to Pharmacy Electronically, [facility]/pharmacy #[id number], 159, cm, 12/16/20 13:47:00 EST, [...] Dyspepsia(Confirmed) Active Disc displacement(Confirmed) Active Onychomycosis(Confirmed) Active *[facility]/Valerie [phone]/[facility], Active Care Coordination(Confirmed) Active Nasal septum perforation, h/ o cocaine(Confirmed) Active Muscle spasm(Confirmed) Active Tubular adenoma of colon - d ue 2021(Confirmed) 2 11/2015 Active 1, gross 2-2014, had cystoscopy 2014 Social History Social History Type Response Smoking Status Never smoker entered on: 08/23/16 Sex Care Team Personnel Name: Trenton Eastman MD Address: [address] [place] [address]
--- OUTSIDE RECORDS SUMMARY | 2023-06-10 06:28 | XMS_ITS | Continuity of Care Document ---
Author Name Unknown Organization [facility] Address [address] [place] [address]- Care Team Providers Care Spouting Installer Name Role Phone Melvi KRISHNA, Samuel Palacios Primary Care Physician [phone] [place] [facility] [place]/18[place]20 - 03/25/20 [facility] [address] [place] [address]- [facility] Attending Physician: Jon Gonzalez MD Admitting Physician: Jack KRISHNA, Lloyd Green Allergies, Adverse Reactions, Alerts Substance Reaction Severity Status penicillins Active Immunizations Given and Recorded Vaccine Date Status Refusal Reason influenza virus vaccine, inactivated 12/21/19 Give n influenza virus vaccine, inactivated 07/15/19 Give n influenza virus vaccine, inactivated 1 10/12/10 Gi jocy tetanus/diphtheria/pertussis, acel(Tdap) 2 10/12/10 Given 1Admin Note: VIS given 05/30/10, Armenian form 2Admin Note: VIS given, 08/2008, Armenian form Medications Artificial Tears preserved solution 1 drops, Eyes, Both, 2 times a day, PRN for dry eyes, # 10 mL, 0 Refills, Maintenance, 10/19/19 14:27:00 EST, Solution, [facility], 1 drops Eyes, Both 2 times a day,PRN:for dry eyes, 159, cm, 10/19/19 13:35:00 EST, Height Start Date: 10/19/19 Status: Ordered loratadine 10 mg oral tablet 10 mg, 1, tablet, By Mouth, Daily, # 30 tablet, Refills 2, Tot. Refills 2, Maintenance, 12/22/19 21:46:00 EST, Route to Pharmacy Electronically, [facility]/pharmacy #[id number], 159, cm, 12/21/19 13:52:00 EST, Height Start Date: 12/22/19 Stop Date: 03/15/20 Status: Ordered meloxicam 15 mg oral tablet 1 tablet = 15 mg, By Mouth, Daily, # 30 tablet, 3 Refills, Maintenance, 01/06/20 14:22:00 EDT, Tablet, [facility] 159, cm, 12/21/19 13:52:00 EST, Height Start Date: 01/06/20 Stop Date: 05/05/20 Status: Ordered Mylanta Maximum Strength oral suspension 20 mL, By Mouth, 4 times a day, between meals and at bedtime, # 240 mL, 1 Refills, Maintenance, 10/19/19 14:27:00 EST, Suspension, [facility]., 20 mL By Mouth 4 times a day,Instr:between meals and at bedtime, 159, cm, 10/19/19 13:35:00... Start Date: 10/19/19 Status: Ordered omeprazole 40 mg oral enteric coated capsule 1 capsule = 40 mg, By Mouth, Daily, # 30 capsule, 2 Refills, Maintenance, 01/14/20 11:09:00 EDT, ECCapsule, [facility] 159, cm, 12/21/19 13:52:00 EST, [...] 01/14/20 11:08:00 EDT, Route to Pharmacy Electronically, [facility] 159, cm, 12/21/19 13:52:00 EST, Height Start Date: 01/14/20 Status: Ordered Problem List Condition Effective Dates Status Health Status Inform ant Hematuria(Confirmed) 1 Active Chronic back pain(Confirmed) Active Depression(Confirmed) Active Dyslipidemia(Confirmed) Active h/o allergic rhinitis(Confirmed) Active Illiteracy(Confirmed) Active Disc displacement(Confirmed) Active *[facility], [facility], (Confirmed) 08/06/18 Active N/[facility]/CARMEN-Serena Purcell-[phone]/[facility], Active Care Coordination(Confirmed) Active Tubular adenoma of colon - d ue 2021(Confirmed) 2 11/2015 Active lul Vick 2-2014, had cystoscopy 2014 Social History Social History Type Response Smoking Status Never smoker entered on: 08/23/16 Sex
--- OUTSIDE RECORDS SUMMARY | 2023-06-10 06:28 | XMS_ITS | Continuity of Care Document ---
Author Name Unknown Organization [facility] Address [address] [place] [address]- Care Team Providers Care Title Examiner Name Role Phone eBbe KRISHNA, Hugh Primary Care Physician Encounter [facility] Date(s): 02/02/21 - 03/29/21 [facility] [address] [place] [address]- Attending Physician: Randy Jc MD Admitting Physician: Randy Jc MD Allergies, Adverse Reactions, Alerts Substance Reaction [...] 10/12/10 Given 1Admin Note: VIS given 05/30/10, Equatorial [place]inean form 2Admin Note: VIS given, 08/2008, Equatorial [place]inean form Medications amLODIPine 2.5 mg oral tablet 2.5 mg, 1, tablet, By Mouth, Daily, ; STOP amlodipine 5 mg. use this dose instead., # 30 tablet, Refills 11, Tot. Refills 11, Maintenance, 11/22/20 16:52:00 EST, Route to Pharmacy Electronically, [facility]/pharmacy #[id number], label all scripts in CHINESE,... Start Date: 11/22/20 Stop Date: 11/17/21 Status: Ordered azelastine 0.05% ophthalmic solution 1 drops, Eyes, Both, 2 times a day, PRN for allergy symptoms, # 6 mL, 6 Refills, Maintenance, 01/13/21 14:54:00 EDT, [facility]/pharmacy #[id number], Label in Equatorial Guinean, 1 drops Eyes, Both 2 times a day,PRN:for allergy symptoms, 159, cm, 01/04/21 9:23:00 EDT, Height... Start Date: 01/13/21 Status: Ordered diclofenac 1% topical gel 1 application, Topically, 4 times a day, not to exceed 32 grams/day, # 100 Gm, 2 Refills, Maintenance, 12/12/20 11:17:00 EST, Gel, [facility]/pharmacy #[id number], Label in Equatorial Guinean please, 159, cm, 12/12/20 10:33:00 EST, Height, 74.1, kg, 10/20/20 16:18:00 EST, DrDonal.. Start Date: 12/12/20 Status: Ordered Flonase 50 mcg/inh nasal spray 1 sprays, Nares, Both, Daily, # 16 Gm, 1 Refills, Maintenance, 06/16/20 18:04:00 EDT, [place], [id number], 159, cm, 06/08/20 13:31:00 EDT, [...] Active Dyspepsia(Confirmed) Active Disc displacement(Confirmed) Active [facility]/CC-Serena Purcell-[phone]/[facility], Active Care Coordination(Confirmed) Active Tubular adenoma of colon - d ue 2021(Confirmed) 2 11/2015 Active lul Vick 2-2014, had cystoscopy 2014 Social History Social History Type Response Smoking Status Never smoker entered on: 08/23/16 Sex
--- OUTSIDE RECORDS SUMMARY | 2023-06-10 06:28 | XMS_ITS | Continuity of Care Document ---
Author Name Unknown Organization [facility] Adult Medicine Address [address] [place] [address]- Care Team Providers Care Janitor Cleaner Name Role Phone Bebe KRISHNA, Hugh Primary Care Physician Encounter [facility] Date(s): 10/18/20 - 11/17/20 [facility] Adult Medicine [address] [place], [place] [address] Allergies, Adverse Reactions, Alerts Substance Reaction Severity Status penicillins Active Immunizations Given and Recorded Vaccine Date Status Refusal Reason influenza virus vaccine, inactivated 07/27/20 Give n influenza virus vaccine, inactivated 12/21/19 Give n influenza virus vaccine, inactivated 07/15/19 Give n influenza virus vaccine, inactivated 1 10/12/10 Gi jocy tetanus/diphtheria/pertussis, acel(Tdap) 2 10/12/10 Given 1Admin Note: VIS given 05/30/10, Azeri form 2Admin Note: VIS given, 08/2008, Azeri form Medications amLODIPine 5 mg oral tablet 5 mg, 1, tablet, By Mouth, Daily, # 90 tablet, Refills 10, Tot. Refills 10, Maintenance, 06/08/20 15:00:00 EDT, Route to Pharmacy Electronically, [facility]/pharmacy #[id number], 159, cm, 06/08/20 13:31:00 EDT, Height Start Date: 06/08/20 Stop Date: 02/23/23 Status: Ordered Artificial Tears preserved solution 1 drops, Eyes, Both, 2 times a day, PRN for dry eyes, # 10 mL, 0 Refills, Maintenance, 10/19/19 14:27:00 EST, [facility] 1 drops Eyes, Both 2 times a day,PRN:for dry eyes, 159, cm, 10/19/19 13:35:00 EST, Height Start Date: 10/19/19 Status: Ordered Flonase 50 mcg/inh nasal spray 1 sprays, Nares, Both, Daily, # 16 Gm, 1 Refills, Maintenance, 06/16/20 18:04:00 EDT, [place], [facility]/pharmacy #[id number], 159, cm, 06/08/20 13:31:00 EDT, Height Start Date: 06/16/20 Status: Ordered multivitamin Multiple Vitamins oral capsule 1 capsule, By Mouth, Daily, # 90 capsule, 11 Refills, Maintenance, 08/12/20 11:32:00 EDT, Capsule, [facility]/pharmacy #[id number], 1 capsule By Mouth Daily, 159, cm, 07/27/20 13:20:00 EDT, Height Start Date: 08/12/20 Status: Ordered Mylanta Maximum Strength oral suspension 20 mL, By Mouth, 4 times a day, between meals and at bedtime, # 240 mL, 1 Refills, Maintenance, 10/19/19 14:27:00 EST, Suspension, [facility], 20 mL By Mouth 4 times a day,Instr:between meals and at bedtime, 159, cm, 10/19/19 13:35:00... Start Date: 10/19/19 Status: Ordered omeprazole 40 mg oral enteric coated capsule 1 capsule = 40 mg, By Mouth, 2 times a day, # 60 capsule, 4 Refills, Maintenance, 10/05/20 14:48:00EST, EC Capsule, [facility]/pharmacy #[id number], Partial fill upon patient request if [...] 10/20/20 18:51:00 EST, Route to Pharmacy Electronically, [facility]/pharmacy #[id number], Partial fill upon patient request if the prescription is for a schedule II opio... Start Date: 10/20/20 Stop Date: 10/27/20 Status: Ordered Tums 500 mg oral tablet, chewable 500 mg, 1, tablet, Chew, 2 times a day, # 60 tablet, Refills 3, Tot. Refills 3, Maintenance, 01/14/20 11:08:00 EDT, Route to Pharmacy Electronically, [facility], 159, cm, 12/21/19 13:52:00 EST, Height Start Date: 01/14/20 Status: Ordered Tylenol 8 HR Arthritis Pain 650 mg oral tablet, extended release 1 tablet = 650 mg, By Mouth, Every 8 hours, # 100 tablet, 1 Refills, Acute 09/11/21 13:31:00 EST, 09/12/20 13:30:00 EST, ER Tablet, [facility], 159, cm, 07/27/20 13:20:00 EDT, Height Start Date: 09/12/20 Stop Date: 09/11/21 Status: Ordered Problem List Condition Effective Dates Status Health Status Inform ant Hematuria(Confirmed) 1 Active Chronic back pain(Confirmed) Active Dyslipidemia(Confirmed) Active h/o allergic rhinitis(Confirmed) Active Illiteracy(Confirmed) Active Dyspepsia(Confirmed) Active Disc displacement(Confirmed) Active [facility]CC-Serena Purcell-[phone][facility], Active Care Coordination(Confirmed) Active Tubular adenoma of colon - d ue 2021(Confirmed) 2 11/2015 Active lul Vick 2-2014, had cystoscopy 2014 Social History Social History Type Response Smoking Status Never smoker entered on: 08/23/16 Sex
--- OUTSIDE RECORDS SUMMARY | 2023-06-10 06:28 | XMS_ITS | Continuity of Care Document ---
Author Name Unknown Organization [facility] Adult Medicine Address [address] [place] [address]- Care Team Providers Care Boot Turner Name Role Phone Raiza KRISHNA, Trenton Primary Care Physician Encounter [facility] Date(s): 12/11/22 - 01/10/23 [facility] [address] [place] [id number] Allergies, Adverse Reactions, Alerts [...] inactivated 1 10/12/10 Gi jocy SARS-CoV-2 mRNA ([id number]) vax 06/13/22 Recorded SARS-CoV-2 (COVID-19) mRNA BNT-162b2 vac 09/13/21 Recorded SARS-CoV-2 (COVID-19) mRNA BNT-162b2 vac 02/27/21 Given SARS-CoV-2 (COVID-19) mRNA BNT-162b2 vac 02/06/21 Given tetanus-diphtheria toxoids (Td) 11/23/20 Given tetanus/diphtheria/pertussis, acel(Tdap) 2 10/12/10 Given 1Admin Note: VIS given 05/30/10, Samoan form 2Admin Note: VIS given, 08/2008, Samoan form Medications amLODIPine 5 mg oral tablet 5 mg, 1, tablet, By Mouth, Daily, # 90 tablet, Refills 3, Tot. Refills 3, Maintenance, 11/01/22 9:44:00 EST, [id number] Partial fill upon patient request ifthe prescription is for a schedule II opioid drug.,... Start Date: 11/01/22 Status: Ordered Artificial Tears preserved solution 1 drops, Eyes, Both, 2 times a day, PRN for dry eyes, # 30 mL, 0 Refills, Maintenance, 11/29/22 17:50:00 EST, Solution, [facility]/pharmacy #[id number], Partial fill upon patient request if the prescription is for a schedule II opioid drug., 1 drops Eyes, Both 2 t... Start Date: 11/29/22 Status: Ordered Ativan 0.5 mg oral tablet 1 tablet = 0.5 mg, By Mouth, Once, belizean label, take 30 mins to 1 hr [...] Refills, Maintenance, 12/19/22 14:49:00 EST, Tablet, [facility], Partial fill upon patient request if the prescription is for a schedule II opioid drug., 162.56, cm, 12/19/22 14:01:00 E... Start Date: 12/19/22 Status: Ordered azelastine 137 mcg/inh (0.1%) nasal spray 0 Refills, Maintenance, 12/07/21 11:16:00 EST, via Dr Glover, community outreach advocate Start Date: 12/07/21 Status: Ordered baclofen 10 mg oral tablet See Instructions, TOME JOAN TABLETA POR VIA ORAL KARLA VECES AL MONICA, # 63 tablet, Refills 0, Instructions Replace Required Details, Route to Pharmacy Electronically, [facility] STORE [id number], 157.5, cm, 04/10/22 10:29:00 EDT, Height, 75, [...] 2 times a day, Print instructions in belizean, # 60 mL, 1 Refills, Maintenance, 07/11/22 11:00:00 EDT, Suspension, [facility]/pharmacy #[id number], Partial fill upon patient request if the prescription is for a schedule II opioid drug., 1... Start Date: 07/11/22 Status: Ordered [facility] LUBRICANT EYE DROPS Maintenance, 12/07/21 11:16:00 EST, via Dr Glover, community outreach advocate, Supply Start Date: 12/07/21 Status: Ordered diclofenac 1% topical gel 1 application, Topically, 4 times a day, # 100 Gm, 5 Refills, Maintenance, 12/07/22 11:37:00 EST, Gel, [facility]/pharmacy #[id number], Partial fill [...] Refills, Maintenance, 06/24/22 12:04:00 EDT, Tablet, [facility]/pharmacy #[id number], Partial fill upon patient request if the prescription is for a schedule... Start Date: 06/24/22 Stop Date: 09/22/22 Status: Ordered Flomax 0.4 mg oral capsule 0.4 mg, 1, capsule, By Mouth, Daily, # 30 capsule, Refills 5, Tot. Refills 5, Maintenance, 11/07/2310:08:00 EST, Route to Pharmacy Electronically, [facility] [...] Maintenance, 12/07/21 11:16:00 EST, via Dr Glover, community outreach advocate, Supply Start Date: 12/07/21 Status: Ordered minoxidil 2% topical solution 1 mL = 0.02 Gm, Topically, 2 times a day, # 60 mL, 2 Refills, Maintenance, 02/28/22 16:27:00 EDT, Solution, [facility]/pharmacy #[id number], Partial fill [...] EDT, He... Start Date: 06/11/22 Status: Ordered Cool-3 1000 mg oral capsule via psychiatry, 0 Refills, Maintenance, 12/07/21 11:13:00 EST, Partial fill upon patient request ifthe prescription is for a schedule II opioid drug. Start Date: 12/07/21 Status: Ordered omeprazole 40 mg oral enteric coated capsule See Instructions, JUAN RAMON JOAN CAPSULA DOS VECES AL MONICA, # 180 capsule, 1 Refills, Maintenance, 09/05/22 10:55:00 EST, [id number], 162.56, cm, 07/12/22 10:42:00 EDT, Height, 76.5, [...] mL, 4 Refills, Maintenance, 02/28/22 16:09:00 EDT, [place], [id number], Partial fill upon patient request if the prescription is for a schedule II opioid drug., 1 sprays N... Start Date: 02/28/22 Status: Ordered Tears Naturale Forte preserved ophthalmic solution 1 drops, Eyes, Both, 2 times a day, PRN for dry eyes, # 30 mL, 0 Refills, Maintenance, 11/30/22 11:37:00 EST, Solution, [facility]/pharmacy #[id number], Partial fill upon patient request if the [...] Disc displacement Confirmed Active Onychomycosis Confirmed Active *[facility]/CC-Patricia [phone]/[facility], Active Care Coordination Confirmed Active Nasal septum perforation, h/o cocaine Confirmed Active Muscle spasm Confirmed Active Tubular adenoma of colon - due 2021 2 Confirmed 11/2015 Active 1, gross 2-2014, had cystoscopy 2014 Social History Social History Type Response Smoking Status Never smoker entered on: 08/23/16 Sex Patient Care team information Care Team Personnel Name: Trenton Eastman MD Position: [facility] Resident Member Role: PCP Address: Address: [address] [place] [address] [place] [address]- Care Team Related Persons Name: AJAY BE Address: [place] [address] Name: KAMALJIT FUCHS Address: home [address] [place] [address] [address] [place] [id number]
--- OUTSIDE RECORDS SUMMARY | 2023-06-10 06:28 | XMS_ITS | Continuity of Care Document ---
Author Name Unknown Organization [facility] Adult Medicine Address [address] [place] [address]- Care Team Providers Care Dry Transfer Man Name Role Phone Bebe KRISHNA, Hugh Primary Care Physician [phone] Encounter [facility] Date(s): 12/02/20 - 01/01/21 [facility] Adult Medicine [address] [place], [place] [address] Allergies, Adverse Reactions, Alerts Substance [...] 10/12/10 Given 1Admin Note: VIS given 05/30/10, Vincentian form 2Admin Note: VIS given, 08/2008, Vincentian form Medications amLODIPine 2.5 mg oral tablet 2.5 mg, 1, tablet, By Mouth, Daily, ; STOP amlodipine 5 mg. use this dose instead., # 30 tablet, Refills 11, Tot. Refills 11, Maintenance, 11/22/20 16:52:00 EST, Route to Pharmacy Electronically, [facility]/pharmacy #[id number], label all scripts in MACANESE,... Start Date: 11/22/20 Stop Date: 11/17/21 Status: Ordered diclofenac 1% topical gel 1 application, Topically, 4 times a day, not to exceed 32 grams/day, # 100 Gm, 2 Refills, Maintenance, 12/12/20 11:17:00 EST, Gel, [facility]/pharmacy #[id number], Label in Vincentian please, 159, cm, 12/12/20 10:33:00 EST, Height, 74.1, kg, 10/20/20 16:18:00 EST, Start Date: 12/12/20 Status: Ordered Flonase 50 mcg/inh nasal spray 1 sprays, Nares, Both, Daily, # 16 Gm, 1 Refills, Maintenance, 06/16/20 18:04:00 EDT, [place], [facility]/pharmacy #[id number], 159, cm, 06/08/20 13:31:00 EDT, Height Start Date: 06/16/20 Status: Ordered lidocaine 4% topical film 1 patch, Topically, Daily, for 6 days, # 6 patch, 0 Refills, Acute 01/07/21 15:32:00 EDT, 01/01/21 15:32:00 EDT, Film, [facility]/pharmacy #[id number], Partial fill upon [...] 01/05/21 15:32:00 EDT, 01/01/21 15:32:00 EDT, Tablet, [facility]/pharmacy #[id number], Partial fill upon [...] EST, Route to Pharmacy Electronically, [facility]/pharmacy #[id number], 159, cm, 12/16/20 13:47:00 EST, Height, 74.1, kg, 10/20/20 16:18:00 EST, Dry Weight Start Date: 12/16/20 Status: Ordered Tylenol 8 HR Arthritis Pain 650 mg oral tablet, extended release 1 tablet = 650 mg, By Mouth, Every 8 hours, # 100 tablet, 1 Refills, Acute 12/05/21 9:00:00 EST, 12/05/20 15:26:00 EST, ER Tablet, [facility]/pharmacy #[id number], 159, cm, 07/27/20 13:20:00 EDT, Height, 74.1, kg, 10/20/20 16:18:00 EST, Dry Weight Start Date: 12/05/20 Stop Date: 12/05/21 Status: Ordered Problem List Condition Effective Dates Status Health Status Inform ant Hematuria(Confirmed) 1 Active Chronic back pain(Confirmed) Active Dyslipidemia(Confirmed) Active h/o allergic rhinitis(Confirmed) Active Illiteracy(Confirmed) Active Dyspepsia(Confirmed) Active Disc displacement(Confirmed) Active [facility]CC-Serena Purcell-[phone]/[facility], Active Care Coordination(Confirmed) Active Tubular adenoma of colon - d ue 2021(Confirmed) 2 11/2015 Active 1, gross 2-2014, had cystoscopy 2014 Social History Social History Type Response Smoking Status Never smoker entered on: 08/23/16 Sex
--- OUTSIDE RECORDS SUMMARY | 2023-06-10 06:28 | XMS_ITS | Continuity of Care Document ---
Author Name Unknown Organization [facility] y Address [address] [place] [address]- Care Team Providers Care Steel Handler Name Role Phone Raiza KRISHNA, Trenton Primary Care Physician Encounter [facility] Date(s): 02/09/22 - 03/11/22 [facility] Specialty [address] [place], [place] [address] Attending Physician: Viky Garcia Admitting Physician: AdmViky daily Referring Physician: Admtr, Ar8 Allergies, Adverse Reactions, [...] given, 08/2008, East Timorese form Medications amLODIPine 2.5 mg oral tablet 2.5 mg, 1, tablet, By Mouth, Daily, ; STOP amlodipine 5 mg. use this dose instead., # 30 tablet, Refills 5, Tot. Refills 5, Maintenance, 11/17/21 16:52:00 EST, Route to Pharmacy Electronically,[facility]/pharmacy #[id number], label all scripts in TAJIK, 1... Start Date: 11/17/21 Stop Date: 05/16/22 Status: Ordered azelastine 0.05% ophthalmic solution 1 drops, Eyes, Both, 2 times a day, PRN for allergy symptoms, For eye allergies, # 6 mL, 6 Refills,Maintenance, 02/28/22 16:27:00 EDT, [facility]/pharmacy #[id number], Label in East Timorese, 1 drops Eyes, Both 2 times a day,PRN:for allergy symptoms,Instr:For eye aller... Start Date: 02/28/22 Status: Ordered azelastine 137 mcg/inh (0.1%) nasal spray 0 Refills, Maintenance, 12/07/21 11:16:00 EST, via Dr Glover, business solutions architect Start Date: 12/07/21 Status: Ordered buPROPion 150 [...] 12/07/21 11:16:00 EST, via Dr Glover, business solutions architect, Supply Start Date: 12/07/21 Status: Ordered cyclobenzaprine [...] Gm, 1 Refills, Maintenance, 11/30/21 10:55:00 EST, [place], [id number], 1 sprays Nares, Both Daily, [...] 12/07/21 11:16:00 EST, via Dr Glover, business solutions architect, Supply Start Date: 12/07/21 Status: Ordered minoxidil [...] Refills, Maintenance, 09/21/21 9:33:00 EST, REC Powder, [facility] Partial fill upon patient request if the prescription is for a schedule II opioid drug., 240 mL By Mouth Every 10 minut... Start Date: 09/21/21 Status: Ordered [place]-3 1000 mg oral capsule via psychiatry, 0 [...] mL, 4 Refills, Maintenance, 02/28/22 16:09:00 EDT, [place], [id number], Partial fill upon patient request if the prescription is for a schedule II opioid drug., 1 sprays N... Start Date: 02/28/22 Status: Ordered tamsulosin 0.4 mg oral capsule 0.4 mg, 1, capsule, By Mouth, Daily, at night (print label in vincentian), # 30 capsule, Refills 1, Tot. Refills 1, Maintenance, 09/28/21 14:03:00 EST, Route to Pharmacy Electronically, [facility], Partial fill upon patient request [...] 17:18:00 EDT, Capsule, [facility]/pharmacy #[id number], vincentian labeling, 159, cm, 04/28/2115:46:00 EDT, Height, 78, [...] Obese class I(Confirmed) Active Onychomycosis(Confirmed) Active *[facility]/CC-Patricia [phone]/[facility], Active Care Coordination(Confirmed) Active Nasal septum perforation, h/ o cocaine(Confirmed) Active Muscle spasm(Confirmed) Active Tubular adenoma of colon - d ue 2021(Confirmed) 2 11/2015 Active 1 gross 2-2014, had cystoscopy 2014 Social History Social History Type Response Smoking Status Never smoker entered on: 08/23/16 Sex
--- OUTSIDE RECORDS SUMMARY | 2023-06-10 06:28 | XMS_ITS | Continuity of Care Document ---
Author Name Unknown Organization [facility] Address [address] [place] [address]- Care Team Providers Care Printer Repair Technician Name Role Phone Trenton Eastman MD Primary Care Physician Encounter [facility] Date(s): 04/02/22 - 04/09/22 [facility] [address] [place], [place] [address] Attending Physician: Yunier Martinez DO Referring Physician: Trenton Eastman MD Allergies, Adverse [...] 10/12/10 Given 1Admin Note: VIS given 05/30/10, Cypriot form 2Admin Note: VIS given, 08/2008, Cypriot form Medications amLODIPine 2.5 mg oral tablet 2.5 mg, 1, tablet, By Mouth, Daily, ; STOP amlodipine 5 mg. use this dose instead., # 30 tablet, Refills 5, Tot. Refills 5, Maintenance, 11/17/21 16:52:00 EST, Route to Pharmacy Electronically,[facility]/pharmacy #[id number], label all scripts in NORWEGIAN, 1... Start Date: 11/17/21 Stop Date: 05/16/22 Status: Ordered azelastine 0.05% ophthalmic solution 1 drops, Eyes, Both, 2 times a day, PRN for allergy symptoms, For eye allergies, # 6 mL, 6 Refills,Maintenance, 02/28/22 16:27:00 EDT, [facility]/pharmacy #[id number], Label in Cypriot, 1 drops Eyes, Both 2 times a day,PRN:for allergy symptoms,Instr:For eye aller... Start Date: 02/28/22 Status: Ordered azelastine 137 mcg/inh (0.1%) nasal spray 0 Refills, Maintenance, 12/07/21 11:16:00 EST, via Dr Glover, access clerk Start Date: 12/07/21 Status: Ordered baclofen 10 mg oral tablet 10 mg, 1, tablet, By Mouth, 3 times a day, # 63 tablet, Refills 0, Tot. Refills 0, Maintenance, 03/27/22 10:09:00 EDT, Route to Pharmacy Electronically, [facility]/pharmacy [...] Dry Weight Start Date: 03/27/22 Status: Ordered [facility] LUBRICANT EYE DROPS Maintenance, 12/07/21 11:16:00 EST, via Dr Glover, access clerk, Supply Start Date: 12/07/21 Status: Ordered cyclobenzaprine [...] Gm, 1 Refills, Maintenance, 11/30/21 10:55:00 EST, [place], [facility]/pharmacy #[id number], 1 sprays Nares, [...] Maintenance, 12/07/21 11:16:00 EST, via Dr Glover, access clerk, Supply Start Date: 12/07/21 Status: Ordered minoxidil [...] 1 Refills, Maintenance, 03/22/22 15:18:00 EDT, Capsule, [facility]/pharmacy #[id number], 1 capsule By Mouth Daily, 159, cm, 03/22/22 10:39:00 EDT, Height, 78, kg, 01/01/21 16:06:00 EDT, Dry Weight Start Date: 03/22/22 Status: Ordered naproxen 500 mg oral tablet 1 tablet = 500 mg, By Mouth, 2 times a day, for 10 days, # 20 tablet, 0 Refills, Acute 04/12/22 18:45:00 EDT, 04/02/22 18:45:00 EDT, Tablet, [facility]/pharmacy #[id number], Partial fill upon patient request if the prescription is for a schedule II opioid drug., 1... Start Date: 04/02/22 Stop Date: 04/12/22 Status: Ordered NuLYTELY with Flavor Packs oral powder for reconstitution 240 mL, By Mouth, Every 10 minutes, # 1 each, 0 Refills, Maintenance, 09/21/21 9:33:00 EST, REC Powder, [facility], Partial fill upon patient request if the prescription is for a schedule II opioid drug., 240 mL By Mouth Every 10 minut... Start Date: 09/21/21 Status: Ordered [place]-3 1000 mg oral capsule via psychiatry, 0 Refills, Maintenance, 12/07/21 11:13:00 EST, Partial fill upon patient request ifthe prescription is for a schedule II opioid drug. Start Date: 12/07/21 Status: Ordered omeprazole 40 mg oral enteric coated capsule 1 capsule = 40 mg, By Mouth, 2 times a day, # 60 capsule, 2 Refills, Maintenance, 04/13/21 10:31:00EDT, EC Capsule, [facility]/pharmacy #[id number], Partial fill upon [...] mL, 4 Refills, Maintenance, 02/28/22 16:09:00 EDT, [place], [facility]/pharmacy #[id number], Partial fill upon patient request if the prescription is for a schedule II opioid drug., 1 sprays N... Start Date: 02/28/22 Status: Ordered tamsulosin 0.4 mg oral capsule 0.4 mg, 1, capsule, By Mouth, Daily, at night (print label in greenlandic), # 30 capsule, Refills 1, Tot. Refills 1, Maintenance, 09/28/21 14:03:00 EST, Route to Pharmacy Electronically, [facility], Partial fill upon patient request [...] 17:18:00 EDT, Capsule, [facility]/pharmacy #[id number], greenlandic labeling, 159, cm, 04/28/2115:46:00 EDT, Height, 78, [...] Most recent to oldest [Reference Range]: 1 Height 157.5 cm (04/02/22 6:17 PM) Oxygen Saturation [94-100 %] 100 % (04/02/22 6:17 PM) Pulse Rate [55-90 bpm] 78 bpm (04/02/22 6:17 PM) Blood Pressure [90-138/55-84 mm Hg] 145/ 90mm Hg *H* (04/02/22 6:17 PM) Temperature [96.8-100.4 DegF] 98.0 DegF (04/02/22 6:17 PM) Mode of Delivery (Oxygen) Room air (04/02/22 6:17 PM) Blood pressure sites Arm, left (04/02/22 6:17 PM) Temperature Route Temporal (04/02/22 6:17 PM) Social History Social History Type Response Smoking Status Never smoker entered on: 08/23/16 Sex
--- OUTSIDE RECORDS SUMMARY | 2023-06-10 06:28 | XMS_ITS | Continuity of Care Document ---
Author Name Unknown Organization [facility] Address [address] [place] [address]- Care Team Providers Care Survey Crew Chief Name Role Phone Raiza KRISHNA, [place] Primary Care Physician Encounter [facility] Date(s): 12/04/21 - 01/03/22 [facility] [address] [place] [id number] Allergies, Adverse Reactions, Alerts Substance [...] VIS given, 08/2008, Slovak form Medications amLODIPine 2.5 mg oral tablet 2.5 mg, 1, tablet, By Mouth, Daily, ; STOP amlodipine 5 mg. use this dose instead., # 30 tablet, Refills 5, Tot. Refills 5, Maintenance, 11/17/21 16:52:00 EST, Route to Pharmacy Electronically,[facility]/pharmacy #[id number], label all scripts in [place], 1... Start Date: 11/17/21 Stop Date: 05/16/22 Status: Ordered azelastine 0.05% ophthalmic solution 1 drops, Eyes, Both, 2 times a day, PRN for allergy symptoms, For eye allergies, # 6 mL, 6 Refills,Maintenance, 12/18/21 10:53:00 EST, [facility]/pharmacy #[id number], Label in Slovak, 1 drops Eyes, Both 2 times a day,PRN:for allergy symptoms,Instr:For eye aller... Start Date: 12/18/21 Status: Ordered azelastine 137 mcg/inh (0.1%) nasal spray 0 Refills, Maintenance, 12/07/21 11:16:00 EST, via Dr Glover, assistant corporate secretary Start Date: 12/07/21 Status: Ordered buPROPion 150 [...] 1 Refills, Maintenance, 08/28/21 14:44:00 EST, Solution, [facility]/pharmacy #[id number], Partial fill upon patient request if the prescription is for... Start Date: 08/28/21 Status: Ordered [facility] DROPS Maintenance, 12/07/21 11:16:00 EST, via Dr Glover, assistant corporate secretary, Supply Start Date: 12/07/21 Status: Ordered cyclobenzaprine 5 mg oral tablet 0 Refills, Maintenance, 09/28/21 13:55:00 EST, Partial fill upon patient request if the prescription is for a schedule II opioid drug. Start Date: 09/28/21 Status: Ordered diclofenac 3% topical gel 1 application, Topically, 2 times a day, # 100 Gm, 0 Refills, Maintenance, 04/28/21 17:22:00 EDT, Gel, [facility]/pharmacy #[id number], Partial fill upon patient request if the prescription is for a schedule II opioid drug., 1 application Topically 2 times a day,... Start Date: 04/28/21 Status: Ordered Flonase 50 mcg/inh nasal spray 1 sprays, Nares, Both, Daily, # 16 Gm, 1 Refills, Maintenance, 11/30/21 10:55:00 EST, [place], [facility]/pharmacy #[id number], 1 sprays Nares, Both Daily, 159, cm, 11/30/21 9:50:00 EST, Height, 78, kg, 01/01/21 16:06:00 EDT, Dry Weight Start Date: 11/30/21 Status: Ordered loratadine 10 mg oral tablet 10 mg, 1, tablet, By Mouth, Daily, # 30 tablet, Refills 5, Tot. Refills 5, Maintenance, 12/18/21 10:54:00 EST, Route to Pharmacy Electronically, [facility]/pharmacy #[id number], Partial fill upon patient request if the prescription is for a schedule II opioid drug... Start Date: 12/18/21 Status: Ordered LUBRICNT EYE JESSICA 0.4-0.3% Maintenance, 12/07/21 11:16:00 EST, via Dr Glover, assistant corporate secretary, Supply Start Date: 12/07/21 Status: Ordered multivitamin Multiple Vitamins oral capsule 1 capsule, By Mouth, Daily, # 90 capsule, 0 Refills, Maintenance, 10/18/21 22:09:00 EST, Capsule, [facility]/pharmacy #[id number], 1 capsule By Mouth Daily, 159, [...] 10 minut... Start Date: 09/21/21 Status: Ordered Nebo-3 1000 mg oral capsule via psychiatry, 0 Refills, Maintenance, 12/07/21 11:13:00 EST, Partial fill upon patient request ifthe prescription is for a schedule II opioid drug. Start Date: 12/07/21 Status: Ordered omeprazole 40 mg oral enteric coated capsule 1 capsule = 40 mg, By Mouth, 2 times a day, # 60 capsule, 2 Refills, Maintenance, 04/13/21 10:31:00EDT, EC Capsule, [facility]/pharmacy #[id number], Partial fill upon patient request if the prescription is for aschedule II opioid drug., 159, cm, 01/04/21 9:23:00... Start Date: 04/13/21 Stop Date: 07/12/21 Status: Ordered Lynette-Colace 50 mg-8.6 mg oral tablet 2 tablet, By Mouth, Daily at bedtime, PRN Constipation, For constipation, # 60 tablet, 0 Refills, Maintenance, 01/02/22 20:52:00 EDT, Tablet, [facility]/pharmacy #[id number], Partial fill upon patient request if [...] Mouth, Daily, at night (print label in guatemalan), # 30 capsule, Refills 1, Tot. Refills 1, Maintenance, 09/28/21 14:03:00 EST, Route to Pharmacy Electronically, [facility], Partial fill upon patient request if the... Start Date: 09/28/21 Status: Ordered Tears Naturale Forte preserved ophthalmic solution 1 drops, Eyes, Both, 2 times a day, PRN for dry eyes, # 30 mL, 0 Refills, Maintenance, 08/28/21 14:52:00 EST, Solution, [facility]/pharmacy #[id number], Partial fill upon patient request if the prescription is for a schedule II opioid drug., 1 drops Eyes, Both 2 t... Start Date: 08/28/21 Status: Ordered tiZANidine 2 mg oral capsule 1 capsule = 2 mg, By Mouth, 3 times a day, PRN as needed for muscle spasm, # 9 capsule, 0 Refills, Maintenance, 04/28/21 17:18:00 EDT, Capsule, [facility]/pharmacy #[id number], guatemalan labeling, 159, cm, 04/28/2115:46:00 EDT, Height, 78, kg, 01/01/21 16:06:00 EDT... Start Date: 04/28/21 Stop Date: 05/01/21 Status: Ordered Tums 500 mg oral tablet, chewable 500 mg, 1, tablet, Chew, 2 times a day, # 60 tablet, Refills 5, Tot. Refills 5, Maintenance, 12/16/20 14:32:00 EST, Route to Pharmacy Electronically, [facility]/pharmacy #[id number], 159, cm, 12/16/20 13:47:00 EST, Height, 74.1, kg, 10/20/20 16:18:00 EST, Dry Weight Start Date: 12/16/20 Status: Ordered Problem List Condition Effective Dates Status Health Status Inform ant Hematuria(Confirmed) 1 Active Chronic back pain(Confirmed) Active Dyslipidemia(Confirmed) Active Allergic rhinitis(Confirmed) Active Illiteracy(Confirmed) Active Dyspepsia(Confirmed) Active Disc displacement(Confirmed) Active Obese class I(Confirmed) Active Onychomycosis(Confirmed) Active *[facility]-Patricia [phone]/[facility], Active Care Coordination(Confirmed) Active Nasal septum perforation, h/ o cocaine(Confirmed) Active Muscle spasm(Confirmed) Active Tubular adenoma of colon - d ue 2021(Confirmed) 2 11/2015 Active 1 gross 2-2014, had cystoscopy 2014 Social History Social History Type Response Smoking Status Never smoker entered on: 08/23/16 Sex
--- OUTSIDE RECORDS SUMMARY | 2023-06-10 06:28 | XMS_ITS | Continuity of Care Document ---
Author Name Unknown Organization [facility] Address [address] [place] [address]- Care Team Providers Care Filler Shredder Name Role Phone Bebe KRISHNA, Hugh Primary Care Physician [phone] Encounter [facility] Date(s): 09/05/20 - 10/12/20 [facility] [address], [place] [address] Attending Physician: Lloyd Santiago MD Admitting Physician: [...] 10/12/10 Given 1Admin Note: VIS given 05/30/10, Wallisian form 2Admin Note: VIS given, 08/2008, Wallisian form Medications amLODIPine 5 mg oral tablet 5 mg, 1, tablet, By Mouth, Daily, # 90 tablet, Refills 10, Tot. Refills 10, Maintenance, 06/08/20 15:00:00 EDT, Route to Pharmacy Electronically, [facility]/pharmacy #[id number], 159, cm, 06/08/20 13:31:00 EDT, Height Start Date: 06/08/20 Stop Date: 02/23/23 Status: Ordered Artificial Tears preserved solution 1 drops, Eyes, Both, 2 times a day, PRN for dry eyes, # 10 mL, 0 Refills, Maintenance, 10/19/19 14:27:00 EST, [facility], 1 drops Eyes, Both 2 times a day,PRN:for dry eyes, 159, cm, 10/19/19 13:35:00 EST, Height Start Date: 10/19/19 Status: Ordered dextromethorphan 10 mg/5 mL oral syrup 10 mL = 20 mg, By Mouth, Every 4 hours, PRN as needed for cough, # 120 mL, 0 Refills, Maintenance, 06/21/20 22:41:00 EDT, Syrup, [facility]/pharmacy #[id number], 159, cm, 06/08/20 13:31:00 EDT, Height Start Date: 06/21/20 Status: Ordered Flonase 50 mcg/inh nasal spray 1 sprays, Nares, Both, 2 times a day, # 16 Gm, 1 Refills, Maintenance, 06/16/20 18:04:00 EDT, [place], [facility]/pharmacy #[id number], 1 sprays Nares, Both 2 times a day, 159, cm, 06/08/20 13:31:00 EDT, Height Start Date: 06/16/20 Status: Ordered meloxicam 15 mg oral tablet 1 tablet = 15 mg, By Mouth, Daily, # 30 tablet, 1 Refills, Maintenance, 09/12/20 13:30:00 EST, Tablet, [facility] Partial fill upon patient request, 159, cm, 07/27/20 13:20:00 EDT, Height Start Date: 09/12/20 Stop Date: 09/13/21 Status: Ordered multivitamin Multiple Vitamins oral capsule 1 capsule, By Mouth, Daily, # 90 capsule, 11 Refills, Maintenance, 08/12/20 11:32:00 EDT, Capsule, [facility]/pharmacy #[id number], 1 capsule By Mouth Daily, 159, cm, 07/27/20 13:20:00 EDT, Height Start Date: 08/12/20 Status: Ordered Mylanta Maximum Strength oral suspension 20 mL, By Mouth, 4 times a day, between meals and at bedtime, # 240 mL, 1 Refills, Maintenance, 10/19/19 14:27:00 EST, [facility] 20 mL By Mouth 4 times a day,Instr:between meals and at bedtime, 159, cm, 10/19/19 13:35:00... Start Date: 10/19/19 Status: Ordered omeprazole 40 mg oral enteric coated capsule 1 capsule = 40 mg, By Mouth, Daily, # 30 capsule, 4 Refills, Maintenance, 10/05/20 14:48:00 EST, ECCapsule, [id number], Partial fill upon patient request if the [...] 01/14/20 11:08:00 EDT, Route to Pharmacy Electronically, [facility], 159, cm, 12/21/19 13:52:00 EST, Height Start Date: 01/14/20 Status: Ordered Tylenol 8 HR Arthritis Pain 650 mg oral tablet, extended release 1 tablet = 650 mg, By Mouth, Every 8 hours, # 100 tablet, 1 Refills, Acute 09/11/21 13:31:00 EST, 09/12/20 13:30:00 EST, ER Tablet, [facility] 159, cm, 07/27/20 13:20:00 EDT, Height Start Date: 09/12/20 Stop Date: 09/11/21 Status: Ordered Problem List Condition Effective Dates Status Health Status Inform ant Hematuria(Confirmed) 1 Active Chronic back pain(Confirmed) Active Dyslipidemia(Confirmed) Active h/o allergic rhinitis(Confirmed) Active Illiteracy(Confirmed) Active Dyspepsia(Confirmed) Active Disc displacement(Confirmed) Active [facility]-Serena Purcell-[phone]/[facility], Active Care Coordination(Confirmed) Active Tubular adenoma of colon - d ue 2021(Confirmed) 2 11/2015 Active 1, gross 2-2014, had cystoscopy 2014 Social History Social History Type Response Smoking Status Never smoker entered on: 08/23/16 Sex
--- OUTSIDE RECORDS SUMMARY | 2023-06-10 06:28 | XMS_ITS | Continuity of Care Document ---
Author Name Unknown Organization [facility] Address [address] [place] [address]- Care Team Providers Care Overhead Cleaner Name Role Phone Raiaz KRISHNA, [place] Primary Care Physician [phone] Encounter [facility] Date(s): 12/28/21 - 01/28/22 [facility] [address] [place] [address]- Attending Physician: Joe HILLS, Sonia Harris Admitting [...] 10/12/10 Given 1Admin Note: VIS given 05/30/10, Emirati form 2Admin Note: VIS given, 08/2008, Emirati form Medications amLODIPine 2.5 mg oral tablet 2.5 mg, 1, tablet, By Mouth, Daily, ; STOP amlodipine 5 mg. use this dose instead., # 30 tablet, Refills 5, Tot. Refills 5, Maintenance, 11/17/21 16:52:00 EST, Route to Pharmacy Electronically,[facility]/pharmacy #[id number], label all scripts in [place], 1... Start Date: 11/17/21 Stop Date: 05/16/22 Status: Ordered azelastine 0.05% ophthalmic solution 1 drops, Eyes, Both, 2 times a day, PRN for allergy symptoms, For eye allergies, # 6 mL, 6 Refills,Maintenance, 12/18/21 10:53:00 EST, [facility]/pharmacy #[id number], Label in Emir[place], 1 drops Eyes, Both 2 times a day,PRN:for allergy symptoms,Instr:For eye aller... Start Date: 12/18/21 Status: Ordered azelastine 137 mcg/inh (0.1%) nasal spray 0 Refills, Maintenance, 12/07/21 11:16:00 EST, via Dr Glover, tail board man Start Date: 12/07/21 Status: Ordered buPROPion 150 [...] Maintenance, 12/07/21 11:16:00 EST, via Dr Glover, tail board man, Supply Start Date: 12/07/21 Status: Ordered cyclobenzaprine [...] Gm, 1 Refills, Maintenance, 11/30/21 10:55:00 EST, [place], [facility]/pharmacy #[id number], 1 sprays Nares, [...] Maintenance, 12/07/21 11:16:00 EST, via Dr Glover, tail board man, Supply Start Date: 12/07/21 Status: Ordered multivitamin [...] Refills, Maintenance, 09/21/21 9:33:00 EST, [place], [facility], Partial fill upon patient request if the prescription is for a schedule II opioid drug., 240 mL By Mouth Every 10 minut... Start Date: 09/21/21 Status: Ordered Trufant-3 1000 mg oral capsule via psychiatry, 0 [...] Mouth, Daily, at night (print label in swiss), # 30 capsule, Refills 1, Tot. Refills 1, Maintenance, 09/28/21 14:03:00 EST, Route to Pharmacy Electronically, [facility], Partial fill upon patient request if the... [...] Maintenance, 04/28/21 17:18:00 EDT, Capsule, [id number], swiss labeling, 159, cm, 04/28/2115:46:00 EDT, Height, 78, [...] Active Obese class I(Confirmed) Active Onychomycosis(Confirmed) Active *[facility] [phone]/[facility], Active Care Coordination(Confirmed) Active Nasal septum perforation, h/ o cocaine(Confirmed) Active Muscle spasm(Confirmed) Active Tubular adenoma of colon - d ue 2021(Confirmed) 2 11/2015 Active 1, gross 2-2014, had cystoscopy 2014 Social History Social History Type Response Smoking Status Never smoker entered on: 08/23/16 Sex
--- OUTSIDE RECORDS SUMMARY | 2023-06-10 06:28 | XMS_ITS | Continuity of Care Document ---
Author Name Unknown Organization [facility] ter Address [address] [place] [id number]- Care Team Providers Care Dialysis Chief Equipment Technician Name Role Phone Raiza KRISHNA, Trenton Primary Care Physician [place] [facility] [place]23 - 02/17/[address] [address]- Encounter Diagnosis Seasonal allergies(Final) - 02/17/23 Discharge Disposition: A-D/C Home Attending Physician: Michelle Griffith MD Admitting Physician: Michelle Griffith MD Referring Physician: Not on Staff, Referring [...] inactivated 1 10/12/10 Gi jocy SARS-CoV-2 mRNA ([id number]) vax 06/13/22 Recorded SARS-CoV-2 (COVID-19) mRNA BNT-162b2 [...] 2 Refills, Maintenance, 02/04/23 9:35:00 EDT, [id number] Partial fill upon patient request if the prescription is fora schedule II opioid drug., 1 drops Eyes, Both 2 ti... Start Date: 02/04/23 Status: Ordered Ativan 0.5 mg oral tablet 1 tablet = 0.5 mg, By Mouth, Once, chinese label, take 30 mins to 1 hr [...] Maintenance, 12/07/21 11:16:00 EST, via Dr Glover, senior research analyst Start Date: 12/07/21 Status: Ordered baclofen 10 mg oral tablet See Instructions, TOME SABRINA TABLETA POR VIA ORAL KARLA VECES AL MONICA, # 63 tablet, Refills 0, Instructions Replace Required Details, Route to Pharmacy Electronically, [id number], 157.5, cm, 04/10/22 10:29:00 EDT, Height, 75, [...] 2 times a day, Print instructions in chinese use only for toenails, # 60 mL, 1 Refills, Maintenance, 01/18/23 10:15:00 EDT, Suspension, [facility]/pharmacy #[id number], Partial fill uponpatient request if the prescription is for a sched... Start Date: 01/18/23 Status: Ordered [facility] LUBRICANT EYE DROPS Maintenance, 12/07/21 11:16:00 EST, via Dr Glover, senior research analyst, Supply Start Date: 12/07/21 Status: Ordered diclofenac 1% topical gel 1 application, Topically, 4 times a day, # 100 Gm, 5 Refills, Maintenance, 12/07/22 11:37:00 EST, Gel, [facility]/pharmacy #[id number], Partial fill upon patient [...] 2 Refills, Maintenance, 06/24/22 12:04:00 EDT, Tablet, [facility]/pharmacy #[id number], Partial fill upon patient request if the prescription is for a schedule... Start Date: 06/24/22 Stop Date: 09/22/22 Status: Ordered Flomax 0.4 mg oral capsule 0.4 mg, 1, capsule, By Mouth, Daily, # 30 capsule, Refills 5, Tot. Refills 5, Maintenance, 11/07/2310:08:00 EST, Route to Pharmacy Electronically, [facility]/pharmacy #[id number], Partial fill upon patient [...] 1 application, Topically, Daily, Print instructions in chinese Use only on feet, # 60 Gm, 1 Refills, Maintenance, 01/18/23 10:16:00 EDT, [place], [facility]/pharmacy #[id number], Partial fill upon patient request if the prescription is for a schedule II opioid drug... Start Date: 01/18/23 Status: Ordered loratadine 10 mg oral tablet 10 mg, 1, tablet, By Mouth, Daily, # 30 tablet, Refills 5, Tot. Refills 5, Maintenance, 12/18/21 10:54:00 EST, Route to Pharmacy Electronically, [facility]/pharmacy #[id number], Partial fill upon patient request if the prescription is for a schedule II opioid drug... Start Date: 12/18/21 Status: Ordered LUBRICNT EYE JESSICA 0.4-0.3% Maintenance, 12/07/21 11:16:00 EST, via Dr Glover, senior research analyst, Supply Start Date: 12/07/21 Status: Ordered minoxidil [...] 5 Refills, Maintenance, 12/07/22 11:36:00 EST, Suspension, [facility]/pharmacy #[id number], Partial fill upon patient [...] EDT, He... Start Date: 06/11/22 Status: Ordered [place]-3 1000 mg oral capsule via psychiatry, 0 Refills, Maintenance, 12/07/21 11:13:00 EST, Partial fill upon patient request ifthe prescription is for a schedule II opioid drug. Start Date: 12/07/21 Status: Ordered omeprazole 40 mg oral enteric coated capsule See Instructions, JUAN RAMON ARTA DOS VECES AL MONICA, # 180 capsule, 1 Refills, Maintenance, 09/05/22 10:55:00 EST, [id number], 162.56, cm, 07/12/22 10:42:00 EDT, Height, 76.5, kg, 06/12/22 13:23:00 EDT, Dry Weight Start Date: 09/05/22 Status: Ordered Lynette-Colace 50 mg-8.6 mg oral tablet 2 tablet, By Mouth, Daily at bedtime, PRN Constipation, For constipation, # 60 tablet, 0 Refills, Maintenance, 01/02/22 20:52:00 EDT, Tablet, [facility]/pharmacy #[id number], Partial fill upon patient request if the prescription is for a schedule II opioid drug. L... Start Date: 3/15/22 Status: Ordered QUEtiapine 50 mg oral tablet [...] 11 Refills, Maintenance, 01/14/23 15:27:00 EDT, Tablet, [facility]/pharmacy #[id number], label in Sri Lankan, 162.56,cm, 01/14/23 15:01:00 EDT, Height, 76.5, kg, 06/12/... Start Date: 01/14/23 Stop Date: 12/29/25 Status: Ordered Saline Mist 0.65% nasal spray 2 sprays, Nares, Both, 4 times a day, # 60 mL, 1 Refills, Maintenance, 02/08/23 13:50:00 EDT, [facility]/pharmacy #[id number], Partial fill upon patient request if the prescription is for a schedule II opioid drug., 2 sprays Nares, Both 4 times a day, 162.56, cm,... Start Date: 02/08/23 Status: Ordered Simply Saline 0.9% spray 1 sprays, Nares, Both, Every 30 minutes, PRN for dry nasal passages, # 45 mL, 4 Refills, Maintenance, 02/28/22 16:09:00 EDT, [place], [facility]/pharmacy #[id number], Partial fill upon patient request if the prescription is for a schedule II opioid drug., 1 sprays N... Start Date: 02/28/22 Status: Ordered Tears Naturale Forte preserved ophthalmic solution 1 drops, Eyes, Both, 2 times a day, PRN for dry eyes, # 30 mL, 0 Refills, Maintenance, 11/30/22 11:37:00 EST, Solution, [facility]/pharmacy #[id number], Partial fill upon patient [...] Disc displacement Confirmed Active Onychomycosis Confirmed Active *N/[facility]/CC-Patricia [phone]/He alth [facility], Active Care Coordination Confirmed Active Nasal septum perforation, h/o cocaine Confirmed Active Prediabetes Confirmed Active Severe obesity (BMI 35.0-39.9) with comorbidity Confirmed Active Muscle spasm Confirmed Active Tubular adenoma of colon - due 2021 2 Confirmed 11/2015 Active 1, gross 2-2014, had cystoscopy 2014 Results Radiology Reports * Exam Date Time Procedure Performing Provider Status 02/17/23 1:01 PM Chest 2 Views Frontal and Lat Imani Rome; Auth (Verified) Notes: (Chest 2 Views Frontal and Lat) Reason For Exam: Chest Pain;Other: RESULT: Chest 2 Views Frontal and Lat Chest 2 Views Frontal and Lat Hx of Present Illness: Chest pain COMPARISON: 07/26/2011 FINDINGS: LINES AND TUBES: None. LUNGS AND PLEURA: Clear lungs. Normal pulmonary vascularity. No pleural effusion. No pneumothorax. HEART, MEDIASTINUM AND HAMLET: Heart is normal in size. Normal mediastinal and hilar contour. BONES AND SOFT TISSUES: Normal. IMPRESSION: Normal. WSN: [id number] Ordering Physician: Mckenzie Rizzo Dictated By: Alexi Kelly MD Dictated Date/Time: 02/17/23 1:26 pm Reviewed By: Alexi Kelly MD Signed By: Alexi Kelly MD Signed Date/Time: 02/17/23 1:26 pm Transcribed By: JEN Transcribed Date/Time: 02/17/23 1:25 pm Vital Signs Most recent to oldest [Reference Range]: 1 2 3 Height 158 cm (02/17/23 11:48 AM) 158 cm (02/17/23 11:14 AM) 158 cm (02/17/23 11:05 AM) Oxygen Saturation [94-100 %] 98 % (02/17/23 11:48 AM) 96 % (02/17/23 11:14 AM) Pulse Rate [55-90 bpm] 66 bpm (02/17/23 11:48 AM) 77 bpm (02/17/23 11:14 AM) Blood Pressure [90-138/55-84 mm Hg] 108/73mm Hg (02/17/23 11:48 AM) 149/90mm Hg *H* (02/17/23 11:14 AM) Respiratory Rate [16-30 br/min] 17 br/min (02/17/23 11:48 AM) 20 br/min (02/17/23 11:14 AM) Temperature [96.8-100.4 DegF] 98.3 DegF (02/17/23 11:48 AM) 98.7 DegF (02/17/23 11:14 AM) Liters per Minute 0 L/min (02/17/23 11:14 AM) Mode of Delivery (Oxygen) Room air (02/17/23 11:48 AM) Room air (02/17/23 11:14 AM) Blood pressure sites Arm, right (02/17/23 11:48 AM) Arm, left (02/17/23 11:14 AM) Temperature Route Oral (02/17/23 11:48 AM) Oral (02/17/23 11:14 AM) Social History Social History Type Response Smoking Status Never smoker entered on: 08/23/16 Sex Note * Julian Martinez DO: PERFORM Event Display: Patient Education Leaflets Authored Date: [id number] Allergic Rhinitis ?? [id number] Rinitis al??rgica La rinitis al??rgica es sabrina reacci??n al??rgica que afecta la nariz y, con frecuencia, los ojos. Seconocen zoila alergias nasales. A menudo, las alergias nasales se deben a elementos que est??n presentes en el ambiente y se respiran. Dependiendo de a qu?? sea sensible, las alergias nasales pueden producirse solo brandon ciertas estaciones, o saji brandon todo el a??o. Los al??rgenos comunes de interior incluyen los ??caros del polvo, el moho, las cucarachas y la caspa de las mascotas. Los al??rgenos de exterior incluyen el polen de los ??rboles, el c??sped y las hierbas.?? Los s??ntomas incluyen secreci??n nasal, congesti??n o picaz??n en la nariz. Tambi??n incluyen estornudos, ojos rojos y con comez??n. Puede sentirse cansado m??s a menudo. Las alergias cinda tambi??n pueden afectar la respiraci??n y desencadenar sabrina afecci??n llamada asma.?? Se pueden realizar pruebas para detectar a qu?? al??rgenos reacciona. Es posible que lo deriven a un especialista en alergias para que lo eval??e y le lindsay m??s pruebas. Cuidados en el hogar Probablemente, el proveedor de atenci??n m??dica le recete medicamentos para ayudar a aliviar los s??ntomas de la alergia. Pueden incluir medicamentos orales, aerosoles nasales o gotas para los ojos.T??melos zoila le indique el proveedor. No comparta medicamentos recetados con otras personas. Preg??ntele al proveedor c??mo evitar las sustancias a las que es al??rgico.??Los siguientes son algunos consejos para cada tipo de al??rgeno. Caspa de mascota: ??? No tenga mascotas con pelo ni plumas. ??? Si tiene mascotas, mant??ngalas fuera del dormitorio y alejadas de los muebles tapizados. ??? No acaricie, abrace ni d?? besos a las mascotas. Si las acaricia, l??vese las su luego de estar en contacto con ellas. Polen: ??? Cuando el nivel de polen en el ambiente est?? alto, mantenga cerradas las ventanas de carrion casa ysu autom??anthony. En cambio, use el aire acondicionado, de ser posible. ??? Use sabrina mascarilla con filtro cuando roxanne el c??sped o trabaje en el jard??n. D??chese, l??vese el pelo y c??mbiese de ropa despu??s de estar al aire wesly. ? caros del polvo en la casa: ??? Lave la ropa de cama cada semana con [place] y detergente y s??quela en caliente. ??? Cubra el colch??n, el somier y las almohadas con fundas antial??rgicas.? De ser posible, duerma enun cuarto que no tenga tapete, gosia ni muebles tapizados. Cucarachas: ??? Guarde la comida en recipientes cerrados herm??ticamente. ??? Mantenga los armarios y el suelo limpios y sin restos de comida. ??? Saque enseguida la basura de carrion casa. ??? Repare las filtraciones de agua. ??? Bloquee todas las zonas por las que puedan entrar las cucarachas en la casa. O contrate a un fumigador profesional para eliminarlas. Moho: ??? Mantenga bajo el nivel de humedad mediante un deshumidificador o un dispositivo de aire acondicionado. Mantenga el deshumidificador y el aire acondicionado limpios y sin moho. ??? Limpie las ??reas que tengan moho con agua y lej??a. No mezcle la lej??a con otros limpiadores. En general: ??? Pase la aspiradora sabrina o dos veces por semana. De ser posible, use sabrina aspiradora que tenga un filtro de aire de loan eficiencia para part??culas. ??? No fume. Mant??ngase alejado delhumo de cigarrillos. No permita que otras personas fumen en carrion casa o en el autom??anthony. Es un irritante que puede empeorar los s??ntomas. ?? Atenci??n de seguimiento Programe sabrina david de seguimiento seg??n lo que le haya indicado el proveedor de atenci??n m??dica onuestro personal. Si lo derivaron a un especialista en alergias, coordine carol david sin demoras. Preg??ntele al proveedor si las pruebas de alergia o la inmunoterapia contra la alergia (zoila las inyecciones) son adecuadas para usted. ?? Cu??ndo llamar al proveedor de atenci??n m??dica Llame al proveedor de atenci??n m??dica de inmediato si ocurre algo de lo siguiente: ??? Tos ??? Fiebre de 100.4?F??(38?C) o superior, o seg??n le haya indicado el proveedor ??? Urticaria (protuberancias de color rojizo) ??? S??ntomas que son nuevos, contin??an o empeoran ?? Cu??ndo llamar al?? 911 Llame al?? 911??de inmediato si tiene algo de lo siguiente: ??? Dificultad para respirar ??? Hinchaz??n grave de la claudy o picaz??n intensa en los ojos o la boca ??? Sibilancias al respirar o falta de aire ??? Opresi??n en el pecho ??? Aturdimiento o mareos ??? Sensaci??n de muerte ??? Dolor estomacal, hinchaz??n abdominal, v??mitos o diarrea ?? Last Reviewed Date: 2022 ?? [id number] Yodlee. Todos los derechos reservados. Esta informaci??n no pretende sustituir la atenci??n m??dica profesional. S??lo carrion m??dico puede diagnosticar y tratar un problema de jose ramon. ?? * BHSPowerscribe , CIS S: TRANSCRIBE Alexi Kelly MD: VERIFY Event Display: Result: Authored Date: [id number] Chest 2 Views Frontal and Lat Hx of Present Illness: Chest pain COMPARISON: 07/26/2011 FINDINGS: LINES AND TUBES: None. LUNGS AND PLEURA: Clear lungs. Normal pulmonary vascularity. No pleural effusion. No pneumothorax. HEART, MEDIASTINUM AND HAMLET: Heart is normal in size. Normal mediastinal and hilar contour. BONES AND SOFT TISSUES: Normal. IMPRESSION: Normal. WSN: [id number] Ordering Physician: Mckenzie Rizzo Dictated By: Alexi Kelly MD Dictated Date/Time: 02/17/23 1:26 pm Reviewed By: Alexi Kelly MD Signed By: Alexi Kelly MD Signed Date/Time: 02/17/23 1:26 pm Transcribed By: JEN Transcribed Date/Time: 02/17/23 1:25 pm Patient Care team information Care Team Personnel Name: Trenton Eastman MD Position: [facility] Resident Member Role: PCP Address: Address: [address] [facility] [address] Name: Michelle Griffith MD Position: [facility] ED Medicine MD Member Role: Admitting Physician Address: Address: [address] [place] [address] Emergency Medicine [address] Name: Sammie Potts Position: [facility] ED TA [facility] Member Role: Medical Oncology Physician Name: Julian Martinez DO Position: [facility] Resident Member Role: ED Resident Address: Address: [address] [place] [address]- Name: Sariah Forte RN Position: [facility] ED RN W/OE and Tasks Member Role: Patient Care Provider Care Team Related Persons Name: AJAY BE Address: [place] [address] Name: KAMLAJIT FUCHS Address: home [address] [place] [address] [place] [id number]
--- OUTSIDE RECORDS SUMMARY | 2023-06-10 06:28 | XMS_ITS | Continuity of Care Document ---
Author Name Unknown Organization [facility] Address [address] [place] [address]- Care Team Providers Care Stone Cutter Name Role Phone Trenton Eastman MD Primary Care Physician [phone] Encounter [facility] Date(s): 06/29/21 - 07/29/21 [facility] [address], [place] [address] Allergies, Adverse Reactions, Alerts Substance [...] VIS given, 08/2008, Japanese form Medications amLODIPine 2.5 mg oral tablet 2.5 mg, 1, tablet, By Mouth, Daily, ; STOP amlodipine 5 mg. use this dose instead., # 30 tablet, Refills 11, Tot. Refills 11, Maintenance, 11/22/20 16:52:00 EST, Route to Pharmacy Electronically, [facility]/pharmacy #[id number], label all scripts in DANISH,... Start Date: 11/22/20 Stop Date: 11/17/21 Status: Ordered azelastine 0.05% ophthalmic solution 1 drops, Eyes, Both, 2 times a day, PRN for allergy symptoms, # 6 mL, 6 Refills, Maintenance, 01/13/21 14:54:00 EDT, [facility]/pharmacy #[id number], Label in Japanese, 1 drops Eyes, Both 2 times a [...] Gm, 1 Refills, Maintenance, 06/16/20 18:04:00 EDT, [place], [facility]/pharmacy #[id number], 159, cm, 06/08/20 13:31:00 EDT, Height Start Date: 06/16/20 Status: Ordered multivitamin Multiple Vitamins oral capsule 1 capsule, By Mouth, Daily, # 90 capsule, 1 Refills, Maintenance, 02/06/21 14:59:00 EDT, Capsule, [facility]/pharmacy #[id number], 1 [...] EDT, Capsule, [facility]/pharmacy #[id number], italian labeling, 159, cm, 04/28/2115:46:00 EDT, Height, 78, [...] Active Disc displacement(Confirmed) Active Onychomycosis(Confirmed) Active [facility]-Serena Purcell-[phone]/[facility], Active Care Coordination(Confirmed) Active Muscle spasm(Confirmed) Active Tubular adenoma of colon - d ue 2021(Confirmed) 2 11/2015 Active 1, gross 2-2014, had cystoscopy 2014 Social History Social History Type Response Smoking Status Never smoker entered on: 08/23/16 Sex
--- OUTSIDE RECORDS SUMMARY | 2023-06-10 06:28 | XMS_ITS | Continuity of Care Document ---
Author Name Unknown Organization [facility] Address [address] [place] [address]- Care Team Providers Care Jailer Name Role Phone Bebe KRISHNA, Hugh Primary Care Physician [phone] Encounter [facility] Date(s): 02/06/21 - 03/08/21 [facility] [address] [place], [place] [address] Allergies, Adverse [...] 10/12/10 Given 1Admin Note: VIS given 05/30/10, [place] form 2Admin Note: VIS given, 08/2008, [place] form Medications amLODIPine 2.5 mg oral tablet 2.5 mg, 1, tablet, By Mouth, Daily, ; STOP amlodipine 5 mg. use this dose instead., # 30 tablet, Refills 11, Tot. Refills 11, Maintenance, 11/22/20 16:52:00 EST, Route to Pharmacy Electronically, [facility]/pharmacy #[id number], label all scripts in KAZAKH,... Start Date: 11/22/20 Stop Date: 11/17/21 Status: Ordered azelastine 0.05% ophthalmic solution 1 drops, Eyes, Both, 2 times a day, PRN for allergy symptoms, # 6 mL, 6 Refills, Maintenance, 01/13/21 14:54:00 EDT, [facility]/pharmacy #[id number], Label in [place] Verdean, 1 drops Eyes, Both 2 times a day,PRN:for allergy symptoms, 159, cm, 01/04/21 9:23:00 EDT, Height... Start Date: 01/13/21 Status: Ordered diclofenac 1% topical gel 1 application, Topically, 4 times a day, not to exceed 32 grams/day, # 100 Gm, 2 Refills, Maintenance, 12/12/20 11:17:00 EST, Gel, [facility]/pharmacy #[id number], Label in [place] Verdean please, 159, cm, 12/12/20 10:33:00 EST, Height, 74.1, kg, 10/20/20 16:18:00 EST, Start Date: 12/12/20 Status: Ordered Flonase 50 mcg/inh nasal spray 1 sprays, Nares, Both, Daily, # 16 Gm, 1 Refills, Maintenance, 06/16/20 18:04:00 EDT, [place], [facility]/pharmacy #[id number], 159, cm, 06/08/20 13:31:00 EDT, Height Start Date: 06/16/20 Status: Ordered multivitamin Multiple Vitamins oral capsule 1 capsule, By Mouth, Daily, # 90 capsule, 1 Refills, Maintenance, 02/06/21 14:59:00 EDT, Capsule, [facility]/pharmacy #[id number], 1 capsule By Mouth [...] 4 Refills, Maintenance, 10/05/20 14:48:00EST, EC Capsule, [facility]/pharmacy #[id number], Partial fill upon patient [...] 12/16/20 14:32:00 EST, Route to Pharmacy Electronically, [facility]/pharmacy #[id number], 159, cm, 12/16/20 13:47:00 EST, Height, 74.1, kg, 10/20/20 16:18:00 EST, Dry Weight Start Date: 12/16/20 Status: Ordered Tylenol 8 HR Arthritis Pain 650 mg oral tablet, extended release 1 tablet = 650 mg, By Mouth, Every 8 hours, # 100 tablet, 1 Refills, Acute 12/05/21 9:00:00 EST, 12/05/20 15:26:00 EST, ER Tablet, [facility]/pharmacy #[id number], 159, cm, 07/27/20 13:20:00 EDT, Height, 74.1, kg, 10/20/20 16:18:00 EST, Dry Weight Start Date: 12/05/20 Stop Date: 12/05/21 Status: Ordered Problem List Condition Effective Dates Status Health Status Inform ant Hematuria(Confirmed) 1 Active Chronic back pain(Confirmed) Active Dyslipidemia(Confirmed) Active h/o allergic rhinitis(Confirmed) Active Illiteracy(Confirmed) Active Dyspepsia(Confirmed) Active Disc displacement(Confirmed) Active [facility]Serena Purcell-[phone]/[facility], Active Care Coordination(Confirmed) Active Tubular adenoma of colon - d ue 2021(Confirmed) 11/2015 Active 1lul -2014, had cystoscopy 2014 Social History Social History Type Response Smoking Status Never smoker entered on: 08/23/16 Sex
--- OUTSIDE RECORDS SUMMARY | 2023-06-10 06:28 | XMS_ITS | Continuity of Care Document ---
Author Name Unknown Organization [facility] Address [address] [place] [address]- Care Team Providers Care Architect Internship Name Role Phone Raiza KRISHNA, [place] Primary Care Physician Encounter [facility] [place] [place] Date(s): 08/28/21 - 09/27/21 [facility] [address], [place] [address] Allergies, Adverse Reactions, [...] 10/12/10 Given 1Admin Note: VIS given 05/30/10, [place] Citizen form 2Admin Note: VIS given, 08/2008, [place] Citizen form Medications amLODIPine 2.5 mg oral tablet 2.5 mg, 1, tablet, By Mouth, Daily, ; STOP amlodipine 5 mg. use this dose instead., # 30 tablet, Refills 11, Tot. Refills 11, Maintenance, 11/22/20 16:52:00 EST, Route to Pharmacy Electronically, [facility]/pharmacy #[id number], label all scripts in THAI,... Start Date: 11/22/20 Stop Date: 11/17/21 Status: Ordered azelastine 0.05% ophthalmic solution 1 drops, Eyes, Both, 2 times a day, PRN for allergy symptoms, # 6 mL, 6 Refills, Maintenance, 01/13/21 14:54:00 EDT, [id number], Label in [place] Citizen, 1 drops Eyes, Both 2 times a [...] Gm, 1 Refills, Maintenance, 06/16/20 18:04:00 EDT, [place], [id number], 159, cm, 06/08/20 13:31:00 EDT, Height Start Date: 06/16/20 Status: Ordered multivitamin Multiple Vitamins oral capsule 1 capsule, By Mouth, Daily, # 90 capsule, 1 Refills, Maintenance, 02/06/21 14:59:00 EDT, Capsule, [facility]/pharmacy #[id number], 1 capsule By Mouth Daily, 159, cm, 01/04/21 9:23:00 EDT, Height, 78, kg, 01/02/2116:06:00 EDT, Dry Weight Start Date: 02/06/21 Status: Ordered NuLYTELY with Flavor Packs oral powder for reconstitution 240 mL, By Mouth, Every 10 minutes, # 1 each, 0 Refills, Maintenance, 09/21/21 9:33:00 EST, REC Powder, [facility], Partial fill upon patient request if the prescription is for a schedule II opioid drug., 240 mL By Mouth Every 10 minut... Start Date: 09/21/21 Status: Ordered omeprazole 40 mg oral enteric coated capsule 1 capsule = 40 mg, By Mouth, 2 times a day, # 60 capsule, 2 Refills, Maintenance, 04/13/21 10:31:00EDT, EC Capsule, [facility]/pharmacy #[id number], Partial fill upon patient request if [...] Mouth, Daily, at night (print label in canadian), # 30 capsule, Refills 1, Tot. Refills 1, Maintenance, 09/13/21 18:28:00 EST, Route to Pharmacy Electronically, [facility]/pharmacy #[id number], Partial fill upon patient request if the prescri... Start Date: 09/13/21 Status: Ordered Tears Naturale Forte preserved ophthalmic solution 1 drops, Eyes, Both, 2 times a day, PRN for dry eyes, # 30 mL, 0 Refills, Maintenance, 08/28/21 14:52:00 EST, Solution, [facility]/pharmacy #[id number], Partial fill upon patient request if the prescription is for a schedule II opioid drug., 1 drops Eyes, Both 2 t... Start Date: 08/28/21 Status: Ordered tiZANidine 2 mg oral capsule 1 capsule = 2 mg, By Mouth, 3 times a day, PRN as needed for muscle spasm, # 9 capsule, 0 Refills, Maintenance, 04/28/21 17:18:00 EDT, Capsule, [facility]/pharmacy #[id number], canadian labeling, 159, cm, 04/28/2115:46:00 EDT, Height, 78, kg, 01/01/21 16:06:00 EDT... Start Date: 04/28/21 Stop Date: 05/01/21 Status: Ordered Tums 500 mg oral tablet, chewable 500 mg, 1, tablet, Chew, 2 times a day, # 60 tablet, Refills 5, Tot. Refills 5, Maintenance, 12/16/20 14:32:00 EST, Route to Pharmacy Electronically, [facility]/pharmacy #[id number], 159, cm, 12/16/20 13:47:00 EST, Height, 74.1, kg, 10/20/20 16:18:00 EST, Dry Weight Start Date: 12/16/20 Status: Ordered Problem List Condition Effective Dates Status Health Status Inform ant Hematuria(Confirmed) 1 Active Chronic back pain(Confirmed) Active Dyslipidemia(Confirmed) Active h/o allergic rhinitis(Confirmed) Active Illiteracy(Confirmed) Active Dyspepsia(Confirmed) Active Disc displacement(Confirmed) Active Onychomycosis(Confirmed) Active *[facility]/CCValerie [phone]/Health Assisted, Active Care Coordination(Confirmed) Active Muscle spasm(Confirmed) Active Tubular adenoma of colon - d ue 2021(Confirmed) 2 11/2015 Active 1, gross 2-2014, had cystoscopy 2014 Social History Social History Type Response Smoking Status Never smoker entered on: 08/23/16 Sex
--- OUTSIDE RECORDS SUMMARY | 2023-06-10 06:28 | XMS_ITS | Continuity of Care Document ---
Author Name Unknown Organization [facility] Address [address] [place] [address]- Care Team Providers Care Orthotic Fitter Name Role Phone Bebe KRISHNA, Hugh Primary Care Physician Encounter [facility] [place] Date(s): 05/13/20 - 06/12/20 [facility] [address] [place] [address]- [facility] Attending Physician: Not on Staff, Attending [...] VIS given, 08/2008, Emir[place] form Medications amLODIPine 5 mg oral tablet 5 mg, 1, tablet, By Mouth, Daily, # 90 tablet, Refills 10, Tot. Refills 10, Maintenance, 06/08/20 15:00:00 EDT, Route to Pharmacy Electronically, [facility]/pharmacy #[id number], 159, cm, 06/08/20 13:31:00 EDT, Height Start Date: 06/08/20 Stop Date: 02/23/23 Status: Ordered Artificial Tears preserved solution 1 drops, Eyes, Both, 2 times a day, PRN for dry eyes, # 10 mL, 0 Refills, Maintenance, 10/19/19 14:27:00 EST, [facility] 1 drops Eyes, Both 2 times a day,PRN:for dry eyes, 159, cm, 10/19/19 13:35:00 EST, Height Start Date: 10/19/19 Status: Ordered loratadine 10 mg oral tablet 10 mg, 1, tablet, By Mouth, Daily, # 30 tablet, Refills 2, Tot. Refills 2, Maintenance, 12/22/19 21:46:00 EST, [id number] 159, cm, 12/21/19 13:52:00 EST, Height Start Date: 12/22/19 Stop Date: 03/15/20 Status: Ordered Mylanta Maximum Strength oral suspension 20 mL, By Mouth, 4 times a day, between meals and at bedtime, # 240 mL, 1 Refills, Maintenance, 10/19/19 14:27:00 EST, Suspension, [facility] 20 mL By Mouth 4 times a day,Instr:between meals and at bedtime, 159, cm, 10/19/19 13:35:00... Start Date: 10/19/19 Status: Ordered omeprazole 40 mg oral enteric coated capsule 1 capsule = 40 mg, By Mouth, Daily, # 30 capsule, 2 Refills, Maintenance, 05/12/20 11:33:00 EDT, [facility], [id number], 159, cm, 12/21/19 13:52:00 EST, Height [...] 01/14/20 11:08:00 EDT, Route to Pharmacy Electronically, [facility] 159, cm, 12/21/19 13:52:00 EST, Height Start Date: 01/14/20 Status: Ordered Problem List Condition Effective Dates Status Health Status Inform ant Hematuria(Confirmed) 1 Active Chronic back pain(Confirmed) Active Depression(Confirmed) Active Dyslipidemia(Confirmed) Active h/o allergic rhinitis(Confirmed) Active Illiteracy(Confirmed) Active Dyspepsia(Confirmed) Active Disc displacement(Confirmed) Active *N [facility], [facility], (Confirmed) 08/06/18 Active N/[facility]/CARMEN-Serena Purcell-[phone]/Health Jail, Active Care Coordination(Confirmed) Active Tubular adenoma of colon - d ue 2021(Confirmed) 2 11/2015 Active lul Vick -2014, had cystoscopy 2014 Social History Social History Type Response Smoking Status Never smoker entered on: 08/23/16 Sex
--- OUTSIDE RECORDS SUMMARY | 2023-06-10 06:28 | XMS_ITS | Continuity of Care Document ---
Author Name Unknown Organization [facility] Address [address] [place] [address]- Care Team Providers Care Inorganic Chemistry Professor Name Role Phone Raiza KRISHNA, [place] Primary Care Physician Encounter [facility] Date(s): 01/15/23 - 02/14/23 [facility] [address] [place] [id number] Allergies, Adverse Reactions, Alerts Substance Reaction [...] inactivated 1 10/12/10 Gi jocy SARS-CoV-2 mRNA ([id number]) vax 06/13/22 Recorded SARS-CoV-2 (COVID-19) mRNA BNT-162b2 [...] 11/01/22 9:44:00 EST, [id number], Partial fill upon patient request ifthe prescription is for a schedule II opioid drug.,... Start Date: 11/01/22 Status: Ordered Artificial Tears preserved solution 1 drops, Eyes, Both, 2 times a day, PRN for dry eyes, # 30 mL, 2 Refills, Maintenance, 02/04/23 9:35:00 EDT, Solution, [facility]/pharmacy #[id number], Partial fill upon patient request if the prescription is fora schedule II opioid drug., 1 drops Eyes, Both 2 ti... Start Date: 02/04/23 Status: Ordered Ativan 0.5 mg oral tablet 1 tablet = 0.5 mg, By Mouth, Once, ecuadorean label, take 30 mins to 1 hr before flight, # 2 tablet, 0Refills, Soft Stop, 10/08/22 17:54:00 EST, Tablet, [id number], Partial fill upon patient request if the prescription is for a schedule II opioi... Start Date: 10/08/22 Status: Ordered atorvastatin 40 mg oral tablet 1 tablet = 40 mg, By Mouth, Daily, # 30 tablet, 5 Refills, Maintenance, 12/19/22 14:49:00 EST, Tablet, [facility], Partial fill upon patient request if the prescription is for a schedule II opioid drug., 162.56, cm, 12/19/22 14:01:00 E... Start Date: 12/19/22 Status: Ordered azelastine 137 mcg/inh (0.1%) nasal spray 0 Refills, Maintenance, 12/07/21 11:16:00 EST, via Dr Glover, environmental educator Start Date: 12/07/21 Status: Ordered baclofen 10 mg oral tablet See Instructions, TOME JOAN TABLETA POR VIA ORAL KARLA VECES AL MONICA, # 63 tablet, Refills 0, Instructions Replace Required Details, Route to Pharmacy Electronically, [facility] STORE [id number], 157.5, cm, 04/10/22 10:29:00 EDT, Height, 75, [...] 2 times a day, Print instructions in ecuadorean use only for toenails, # 60 mL, 1 Refills, Maintenance, 01/18/23 10:15:00 EDT, Suspension, [facility]/pharmacy #[id number], Partial fill uponpatient request if the prescription is for a sched... Start Date: 01/18/23 Status: Ordered [facility] LUBRICANT EYE DROPS Maintenance, 12/07/21 11:16:00 EST, via Dr Glover, environmental educator, Supply Start Date: 12/07/21 Status: Ordered diclofenac 1% topical gel 1 application, Topically, 4 times a day, # 100 Gm, 5 Refills, Maintenance, 12/07/22 11:37:00 EST, Gel, [facility]/pharmacy #[id number], Partial fill upon patient [...] 2 Refills, Maintenance, 06/24/22 12:04:00 EDT, Tablet, [facility]/pharmacy #[id number], Partial fill upon patient request if the prescription is for a schedule... Start Date: 06/24/22 Stop Date: 09/22/22 Status: Ordered Flomax 0.4 mg oral capsule 0.4 mg, 1, capsule, By Mouth, Daily, # 30 capsule, Refills 5, Tot. Refills 5, Maintenance, 11/07/2310:08:00 EST, Route to Pharmacy Electronically, [facility]/pharmacy #[id number], Partial fill upon patient request if the prescription is for a schedule II opioid d... Start Date: 11/07/22 Status: Ordered ketoconazole 2% topical cream 1 application, Topically, Daily, Print instructions in ecuadorean Use only on feet, # 60 Gm, 1 Refills, Maintenance, 01/18/23 10:16:00 EDT, Cream, [facility]/pharmacy #[id number], Partial fill upon patient [...] Maintenance, 12/07/21 11:16:00 EST, via Dr Glover, environmental educator, Supply Start Date: 12/07/21 Status: Ordered minoxidil [...] EDT, He... Start Date: 06/11/22 Status: Ordered [place]-3 1000 mg oral capsule via psychiatry, 0 Refills, Maintenance, 12/07/21 11:13:00 EST, Partial fill upon patient request ifthe prescription is for a schedule II opioid drug. Start Date: 12/07/21 Status: Ordered omeprazole 40 mg oral enteric coated capsule See Instructions, JUAN RAMON ARTA DOS VECES AL MONICA, # 180 capsule, 1 Refills, Maintenance, 09/05/22 10:55:00 EST, [id number], 162.56, cm, 07/12/22 10:42:00 EDT, Height, 76.5, [...] mL, 4 Refills, Maintenance, 02/28/22 16:09:00 EDT, [place], [id number], Partial fill upon patient request [...] displacement Confirmed Active Onychomycosis Confirmed Active *N/[facility]/CC-Patricia [phone]/[facility], Active Care Coordination Confirmed Active Nasal [...] Team Personnel Name: Raiza KRISHNA, [place] Position: [facility] Resident Member Role: PCP Address: Address: [address] [place] [id number]- Care Team Related Persons Name: AJAY BE Address: [place] [address] Name: KAMALJIT FUCHS Address: home [address] [place] [address] [place] [id number]
--- OUTSIDE RECORDS SUMMARY | 2023-06-10 06:28 | XMS_ITS | Continuity of Care Document ---
Author Name Unknown Organization [facility] Address [address] [place] [address]- Care Team Providers Care Disability Rater Name Role Phone Bebe KRISHNA, Hugh Primary Care Physician [phone] Encounter [facility] [place] Date(s): 02/02/21 - 03/08/21 [facility] [address] [place] [address]- Attending Physician: Randy Jc MD Admitting Physician: [...] 10/12/10 Given 1Admin Note: VIS given 05/30/10, Colombian form 2Admin Note: VIS given, 08/2008, [place]ian form Medications amLODIPine 2.5 mg oral tablet 2.5 mg, 1, tablet, By Mouth, Daily, ; STOP amlodipine 5 mg. use this dose instead., # 30 tablet, Refills 11, Tot. Refills 11, Maintenance, 11/22/20 16:52:00 EST, Route to Pharmacy Electronically, [facility]/pharmacy #[id number], label all scripts in MAURITIAN,... Start Date: 11/22/20 Stop Date: 11/17/21 Status: Ordered azelastine 0.05% ophthalmic solution 1 drops, Eyes, Both, 2 times a day, PRN for allergy symptoms, # 6 mL, 6 Refills, Maintenance, 01/13/21 14:54:00 EDT, [facility]/pharmacy #[id number], Label in Colombian, 1 drops Eyes, Both 2 times a day,PRN:for allergy symptoms, 159, cm, 01/04/21 9:23:00 EDT, Height... Start Date: 01/13/21 Status: Ordered diclofenac 1% topical gel 1 application, Topically, 4 times a day, not to exceed 32 grams/day, # 100 Gm, 2 Refills, Maintenance, 12/12/20 11:17:00 EST, Gel, [facility]/pharmacy #[id number], Label in Colombian please, 159, cm, 12/12/20 10:33:00 EST, Height, 74.1, kg, 10/20/20 16:18:00 EST, DrDonal.. Start Date: 12/12/20 Status: Ordered Flonase 50 mcg/inh nasal spray 1 sprays, Nares, Both, Daily, # 16 Gm, 1 Refills, Maintenance, 06/16/20 18:04:00 EDT, [place], [id number], 159, cm, 06/08/20 13:31:00 EDT, Height Start Date: 06/16/20 Status: Ordered multivitamin Multiple Vitamins oral capsule 1 capsule, By Mouth, Daily, # 90 capsule, 1 Refills, Maintenance, 02/06/21 14:59:00 EDT, Capsule, [facility]/pharmacy #[id number], 1 capsule By Mouth [...] 4 Refills, Maintenance, 10/05/20 14:48:00EST, EC Capsule, [facility]/pharmacy #[id number], Partial fill upon patient [...] 12/16/20 14:32:00 EST, Route to Pharmacy Electronically, [facility]/pharmacy #[id number], 159, cm, 12/16/20 13:47:00 EST, Height, 74.1, kg, 10/20/20 16:18:00 EST, Dry Weight Start Date: 12/16/20 Status: Ordered Tylenol 8 HR Arthritis Pain 650 mg oral tablet, extended release 1 tablet = 650 mg, By Mouth, Every 8 hours, # 100 tablet, 1 Refills, Acute 12/05/21 9:00:00 EST, 12/05/20 15:26:00 EST, ER Tablet, [facility]/pharmacy #[id number], 159, cm, 07/27/20 13:20:00 EDT, Height, 74.1, kg, 10/20/20 16:18:00 EST, Dry Weight Start Date: 12/05/20 Stop Date: 12/05/21 Status: Ordered Problem List Condition Effective Dates Status Health Status Inform ant Hematuria(Confirmed) 1 Active Chronic back pain(Confirmed) Active Dyslipidemia(Confirmed) Active h/o allergic rhinitis(Confirmed) Active Illiteracy(Confirmed) Active Dyspepsia(Confirmed) Active Disc displacement(Confirmed) Active [facility]/CC-Serena Purcell-[phone]/Health [facility], Active Care Coordination(Confirmed) Active Tubular adenoma of colon - d ue 2021(Confirmed) 2 11/2015 Active 1, gross -2014, had cystoscopy 2014 Social History Social History Type Response Smoking Status Never smoker entered on: 08/23/16 Sex
--- OUTSIDE RECORDS SUMMARY | 2023-06-10 06:28 | XMS_ITS | Continuity of Care Document ---
Author Name Unknown Organization [facility] Address [address] [place] [address]- Care Team Providers Care Travel [place] Name Role Phone Raiza KRISHNA, [place] Primary Care Physician Encounter [facility] Date(s): 04/10/22 - 05/10/22 [facility] [address] [place] [id number] Allergies, Adverse Reactions, [...] 10/12/10 Given 1Admin Note: VIS given 05/30/10, Cuban form 2Admin Note: VIS given, 08/2008, [place] form Medications amLODIPine 2.5 mg oral tablet 1 tablet, By Mouth, Daily, USE THIS DOSE INSTEAD., # 90 tablet, 5 Refills, [facility] [id number], 157.5, cm, 04/10/22 10:29:00 EDT, Height, 75, kg, 03/25/22 2:00:00 EDT, Dry Weight Start Date: 05/04/22 Status: Ordered azelastine 0.05% ophthalmic solution 1 drops, Eyes, Both, 2 times a day, PRN for allergy symptoms, For eye allergies, # 6 mL, 6 Refills,Maintenance, 02/28/22 16:27:00 EDT, [facility]/pharmacy #[id number], Label in Cuban, 1 drops Eyes, Both 2 times a day,PRN:for allergy symptoms,Instr:For eye aller... Start Date: 02/28/22 Status: Ordered azelastine 137 mcg/inh (0.1%) nasal spray 0 Refills, Maintenance, 12/07/21 11:16:00 EST, via Dr Glover, security specialist Start Date: 12/07/21 Status: Ordered baclofen 10 mg oral tablet See Instructions, JUAN RAMON JOAN TABLETA POR VIA ORAL KARLA VECES AL MONICA, # 63 tablet, Refills 0, Instructions Replace Required Details, Route to Pharmacy Electronically, [facility] [id number], 157.5, cm, 04/10/22 10:29:00 EDT, Height, 75, [...] Maintenance, 12/07/21 11:16:00 EST, via Dr Glover, security specialist, Supply Start Date: 12/07/21 Status: Ordered cyclobenzaprine 5 mg oral tablet 0 Refills, Maintenance, 09/28/21 13:55:00 EST, Partial fill upon patient request if the prescription is for a schedule II opioid drug. Start Date: 09/28/21 Status: Ordered diclofenac 3% topical gel 1 application, Topically, 2 times a day, # 100 Gm, 0 Refills, Maintenance, 04/28/21 17:22:00 EDT, Gel, [facility]/pharmacy #[id number], Partial fill upon patient request if the prescription is for a schedule II opioid drug., 1 application Topically 2 times a day,... Start Date: 04/28/21 Status: Ordered Flonase 50 mcg/inh nasal spray 1 sprays, Nares, Both, Daily, # 16 Gm, 1 Refills, Maintenance, 11/30/21 10:55:00 EST, [place], [facility]/pharmacy #[id number], 1 sprays Nares, Both Daily, 159, [...] 12/18/21 10:54:00 EST, Route to Pharmacy Electronically, [facility]/pharmacy #[id number], Partial fill upon patient request if the prescription is for a schedule II opioid drug... Start Date: 12/18/21 Status: Ordered LUBRICNT EYE JESSICA 0.4-0.3% Maintenance, 12/07/21 11:16:00 EST, via Dr Glover, security specialist, Supply Start Date: 12/07/21 Status: Ordered minoxidil 2% topical solution 1 mL = 0.02 Gm, Topically, 2 times a day, # 60 mL, 2 Refills, Maintenance, 02/28/22 16:27:00 EDT, Solution, [facility]/pharmacy #[id number], Partial fill upon patient request if the prescription is for a scheduleII opioid drug., 1 mL Topically 2 times a day, 159,... Start Date: 02/28/22 Status: Ordered multivitamin Multiple Vitamins oral capsule 1 capsule, By Mouth, Daily, # 90 capsule, 1 Refills, Maintenance, 03/22/22 15:18:00 EDT, Capsule, [facility]/pharmacy #[id number], 1 capsule By Mouth Daily, 159, cm, 03/22/22 10:39:00 EDT, Height, 78, kg, 01/01/21 16:06:00 EDT, Dry Weight Start Date: 03/22/22 Status: Ordered NuLYTELY with Flavor Packs oral powder for reconstitution 240 mL, By Mouth, Every 10 minutes, # 1 each, 0 Refills, Maintenance, 09/21/21 9:33:00 EST, REC Powder, [facility], Partial fill upon patient request if the prescription is for a schedule II opioid drug., 240 mL By Mouth Every 10 minut... Start Date: 09/21/21 Status: Ordered [place]-3 1000 mg oral capsule via psychiatry, 0 [...] 0 Refills, Maintenance, 01/02/22 20:52:00 EDT, Tablet, [facility]/pharmacy #[id number], Partial fill upon patient request if [...] mL, 4 Refills, Maintenance, 02/28/22 16:09:00 EDT, [place], [facility]/pharmacy #[id number], Partial fill upon patient request if the prescription is for a schedule II opioid drug., 1 sprays N... Start Date: 02/28/22 Status: Ordered tamsulosin 0.4 mg oral capsule 0.4 mg, 1, capsule, By Mouth, Daily, at night (print label in afghan), # 30 capsule, Refills 1, Tot. Refills 1, Maintenance, 09/28/21 14:03:00 EST, Route to Pharmacy Electronically, [facility], Partial fill upon patient request if the... Start Date: 09/28/21 Status: Ordered Tears Naturale Forte preserved ophthalmic solution 1 drops, Eyes, Both, 2 times a day, PRN for dry eyes, # 30 mL, 0 Refills, Maintenance, 08/28/21 14:52:00 EST, Solution, [facility]/pharmacy #[id number], Partial fill upon patient request if the prescription is for a schedule II opioid drug., 1 drops Eyes, Both 2 t... Start Date: 08/28/21 Status: Ordered tiZANidine 2 mg oral capsule 1 capsule = 2 mg, By Mouth, 3 times a day, PRN as needed for muscle spasm, # 9 capsule, 0 Refills, Maintenance, 04/28/21 17:18:00 EDT, Capsule, [id number], afghan labeling, 159, cm, 04/28/2115:46:00 EDT, Height, 78, kg, 01/01/21 16:06:00 EDT... Start Date: 04/28/21 Stop Date: 05/01/21 Status: Ordered Tums 500 mg oral tablet, chewable 500 mg, 1, tablet, Chew, 2 times a day, # 60 tablet, Refills 5, Tot. Refills 5, Maintenance, 12/16/20 14:32:00 EST, Route to Pharmacy Electronically, [facility]/pharmacy #[id number], 159, cm, 12/16/20 13:47:00 EST, Height, [...] Active Obese class I(Confirmed) Active Onychomycosis(Confirmed) [facility]Patricia [phone]/Health Long-Term, Active Care Coordination(Confirmed) Active Nasal septum perforation, h/ o cocaine(Confirmed) Active Muscle spasm(Confirmed) Active Tubular adenoma of colon - d ue 2021(Confirmed) 2 11/2015 Active 1 gross 2-2014, had cystoscopy 2014 Social History Social History Type Response Smoking Status Never smoker entered on: 08/23/16 Sex
--- OUTSIDE RECORDS SUMMARY | 2023-06-10 06:28 | XMS_ITS | Continuity of Care Document ---
Author Name Unknown Organization [facility] Address [address] [place] [address]- Care Team Providers Care Workforce Investment Act Career Manager Name Role Phone Raiza KRISHNA, [place] Primary Care Physician Encounter [facility] Date(s): 12/14/21 - 01/13/22 [facility] [address] [place] [id number] Allergies, Adverse Reactions, Alerts [...] 10/12/10 Given 1Admin Note: VIS given 05/30/10, Bahamian form 2Admin Note: VIS given, 08/2008, Bahamian form Medications amLODIPine 2.5 mg oral tablet 2.5 mg, 1, tablet, By Mouth, Daily, ; STOP amlodipine 5 mg. use this dose instead., # 30 tablet, Refills 5, Tot. Refills 5, Maintenance, 11/17/21 16:52:00 EST, Route to Pharmacy Electronically,[facility]/pharmacy #[id number], label all scripts in [place], 1... Start Date: 11/17/21 Stop Date: 05/16/22 Status: Ordered azelastine 0.05% ophthalmic solution 1 drops, Eyes, Both, 2 times a day, PRN for allergy symptoms, For eye allergies, # 6 mL, 6 Refills,Maintenance, 12/18/21 10:53:00 EST, [facility]/pharmacy #[id number], Label in Bahamian, 1 drops Eyes, Both 2 times a day,PRN:for allergy symptoms,Instr:For eye aller... Start Date: 12/18/21 Status: Ordered azelastine 137 mcg/inh (0.1%) nasal spray 0 Refills, Maintenance, 12/07/21 11:16:00 EST, via Dr Glover, printing press operator Start Date: 12/07/21 Status: Ordered buPROPion [...] Maintenance, 12/07/21 11:16:00 EST, via Dr Glover, printing press operator, Supply Start Date: 12/07/21 Status: Ordered [...] Gm, 1 Refills, Maintenance, 11/30/21 10:55:00 EST, [place], [facility]/pharmacy #[id number], 1 sprays Nares, [...] Maintenance, 12/07/21 11:16:00 EST, via Dr Glover, printing press operator, Supply Start Date: 12/07/21 Status: Ordered [...] Refills, Maintenance, 09/21/21 9:33:00 EST, REC Powder, [facility]., Partial fill upon patient request if the prescription is for a schedule II opioid drug., 240 mL By Mouth Every 10 minut... Start Date: 09/21/21 Status: Ordered [place]-3 1000 mg oral capsule via psychiatry, [...] Mouth, Daily, at night (print label in citizen of [place]), # 30 capsule, Refills 1, Tot. Refills 1, Maintenance, 09/28/21 14:03:00 EST, Route to Pharmacy Electronically, [facility], Partial fill upon patient request if the... [...] 17:18:00 EDT, Capsule, [facility]/pharmacy #[id number], citizen of [place] labeling, 159, cm, 04/28/2115:46:00 EDT, Height, 78, [...] class I(Confirmed) Active Onychomycosis(Confirmed) Active *[facility]/CC-Patricia [phone]/[facility], Active Care Coordination(Confirmed) Active Nasal septum perforation, h/ o cocaine(Confirmed) Active Muscle spasm(Confirmed) Active Tubular adenoma of colon - d ue 2021(Confirmed) 2 11/2015 Active 1lul 2-2014, had cystoscopy 2014 Social History Social History Type Response Smoking Status Never smoker entered on: 08/23/16 Sex
--- OUTSIDE RECORDS SUMMARY | 2023-06-10 06:29 | XMS_ITS | Continuity of Care Document ---
Author Name Unknown Organization [facility] y Address [address] [place] [address]- Care Team Providers Care Insurance Sales Producer Name Role Phone Melvi KRISHNA, Samuel Palacios Primary Care Physician [phone] Encounter [facility] Date(s): 01/06/20 - 01/16/20 [facility] [address] [place] [address]- Attending Physician: AdmViky daily Admitting Physician: Admtr, [id number] Referring Physician: Admtr, [...] Note: VIS given, 08/2008, Palestinian form Medications Artificial Tears preserved solution 1 drops, Eyes, Both, 2 times a day, PRN for dry eyes, # 10 mL, 0 Refills, Maintenance, 10/19/19 14:27:00 EST, [facility], 1 drops Eyes, Both 2 times a day,PRN:for dry eyes, 159, cm, 10/19/19 13:35:00 EST, Height Start Date: 10/19/19 Status: Ordered loratadine 10 mg oral tablet 10 mg, 1, tablet, By Mouth, Daily, # 30 tablet, Refills 2, Tot. Refills 2, Maintenance, 12/22/19 21:46:00 EST, Route to Pharmacy Electronically, [facility]/pharmacy #[id number], 159, cm, 12/21/19 13:52:00 EST, Height Start Date: 12/22/19 Stop Date: 03/15/20 Status: Ordered meloxicam 15 mg oral tablet 1 tablet = 15 mg, By Mouth, Daily, # 30 tablet, 3 Refills, Maintenance, 01/06/20 14:22:00 EDT, Tablet, [facility] 159, cm, 12/21/19 13:52:00 EST, Height Start Date: 01/06/20 Stop Date: 05/05/20 Status: Ordered Mylanta Maximum Strength oral suspension 20 mL, By Mouth, 4 times a day, between meals and at bedtime, # 240 mL, 1 Refills, Maintenance, 10/19/19 14:27:00 EST, Suspension, [facility] 20 mL By Mouth 4 times a day,Instr:between meals and at bedtime, 159, cm, 10/19/19 13:35:00... Start Date: 10/19/19 Status: Ordered omeprazole 40 mg oral enteric coated capsule 1 capsule = 40 mg, By Mouth, Daily, # 30 capsule, 2 Refills, Maintenance, 01/14/20 11:09:00 EDT, ECCapsule, [facility] 159, cm, 12/21/19 13:52:00 EST, [...] 11:08:00 EDT, Route to Pharmacy Electronically, [facility] 159, cm, 12/21/19 13:52:00 EST, Height Start Date: 01/14/20 Status: Ordered Problem List Condition Effective Dates Status Health Status Inform ant Hematuria(Confirmed) 1 Active Chronic back pain(Confirmed) Active Depression(Confirmed) Active Dyslipidemia(Confirmed) Active h/o allergic rhinitis(Confirmed) Active Illiteracy(Confirmed) Active Disc displacement(Confirmed) Active *[facility], [facility], (Confirmed) 08/06/18 Active [facility]-Serena Purcell-[phone]/[facility], Active Care Coordination(Confirmed) Active Tubular adenoma of colon - d ue 2021(Confirmed) 2 11/2015 Active lul Vick 2-2014, had cystoscopy 2014 Social History Social History Type Response Smoking Status Never smoker entered on: 08/23/16 Sex
--- OUTSIDE RECORDS SUMMARY | 2023-06-10 06:29 | XMS_ITS | Continuity of Care Document ---
Author Name Unknown Organization [facility] Address [address] [place] [address]- Care Team Providers Care Dish Up Person Name Role Phone Raiza KRISHNA, [place] Primary Care Physician [facility] Date(s): 05/03/21 - 07/14/21 [facility] [address], [place] [address] Attending Physician: Lloyd Santiago MD [...] 16:52:00 EST, Route to Pharmacy Electronically, [facility]/pharmacy #[id number], label all scripts in [place],... Start Date: 11/22/20 Stop Date: 11/17/21 Status: Ordered azelastine 0.05% ophthalmic solution 1 drops, Eyes, Both, 2 times a day, PRN for allergy symptoms, # 6 mL, 6 Refills, Maintenance, 01/13/21 14:54:00 EDT, [facility]/pharmacy #[id number], Label in Indian, 1 drops Eyes, Both 2 times a day,PRN:for allergy symptoms, 159, cm, 01/04/21 9:23:00 EDT, Height... Start Date: 01/13/21 Status: Ordered diclofenac 3% topical gel 1 application, Topically, 2 times a day, # 100 Gm, 0 Refills, Maintenance, 04/28/21 17:22:00 EDT, Gel, [facility]/pharmacy #[id number], Partial fill upon patient request if the prescription is for a schedule II opioid drug., 1 application Topically 2 times a day,... Start Date: 04/28/21 Status: Ordered Flonase 50 mcg/inh nasal spray 1 sprays, Nares, Both, Daily, # 16 Gm, 1 Refills, Maintenance, 06/16/20 18:04:00 EDT, [place], [facility]/pharmacy #[id number], 159, cm, 06/08/20 13:31:00 EDT, Height Start Date: 06/16/20 Status: Ordered multivitamin Multiple Vitamins oral capsule 1 capsule, By Mouth, Daily, # 90 capsule, 1 Refills, Maintenance, 02/06/21 14:59:00 EDT, Capsule, [facility]/pharmacy #[id number], 1 capsule By Mouth Daily, 159, cm, 01/04/21 9:23:00 EDT, Height, 78, kg, 01/02/2116:06:00 EDT, Dry Weight Start Date: 02/06/21 Status: Ordered omeprazole 40 mg oral enteric coated capsule 1 capsule = 40 mg, By Mouth, 2 times a day, # 60 capsule, 2 Refills, Maintenance, 04/13/21 10:31:00EDT, EC Capsule, [facility]/pharmacy #[id number], Partial fill upon patient request if [...] Refills, Maintenance, 04/28/21 17:18:00 EDT, Capsule, [facility]/pharmacy #[id number], serbian labeling, 159, cm, 04/28/2115:46:00 EDT, Height, 78, kg, 01/01/21 16:06:00 EDT... Start Date: 04/28/21 Stop Date: 05/01/21 Status: Ordered Tums 500 mg oral tablet, chewable 500 mg, 1, tablet, Chew, 2 times a day, # 60 tablet, Refills 5, Tot. Refills 5, Maintenance, 12/16/20 14:32:00 EST, Route to Pharmacy Electronically, [facility]/pharmacy #[id number], 159, cm, 12/16/20 13:47:00 EST, Height, 74.1, kg, 10/20/20 16:18:00 EST, Dry Weight Start Date: 12/16/20 Status: Ordered Problem List Condition Effective Dates Status Health Status Inform ant Hematuria(Confirmed) 1 Active Chronic back pain(Confirmed) Active Dyslipidemia(Confirmed) Active h/o allergic rhinitis(Confirmed) Active Illiteracy(Confirmed) Active Dyspepsia(Confirmed) Active Disc displacement(Confirmed) Active Onychomycosis(Confirmed) Active [facility]/CC-Serena Binh-[phone]/[facility], Active Care Coordination(Confirmed) Active Muscle spasm(Confirmed) Active Tubular adenoma of colon - d ue 2021(Confirmed) 2 11/2015 Active 1lul 2-2014, had cystoscopy 2014 Social History Social History Type Response Smoking Status Never smoker entered on: 08/23/16 Sex
--- OUTSIDE RECORDS SUMMARY | 2023-06-10 06:29 | XMS_ITS | Continuity of Care Document ---
Author Name Unknown Organization [facility] Address [address] [place] [address]- Care Team Providers Care Fashion Merchandiser Name Role Phone Bebe KRISHNA, Hugh Primary Care Physician [place] [facility] [place] 10/06/20 - 11/05/20 [facility] [address], [place] [address] Allergies, Adverse Reactions, Alerts [...] 15:00:00 EDT, Route to Pharmacy Electronically, [facility]/pharmacy #[id number], 159, cm, 06/08/20 13:31:00 EDT, Height Start Date: 06/08/20 Stop Date: 02/23/23 Status: Ordered Artificial Tears preserved solution 1 drops, Eyes, Both, 2 times a day, PRN for dry eyes, # 10 mL, 0 Refills, Maintenance, 10/19/19 14:27:00 EST, [facility] 1 drops Eyes, Both 2 times a day,PRN:for dry eyes, 159, cm, 10/19/19 13:35:00 EST, Height Start Date: 10/19/19 Status: Ordered Flonase 50 mcg/inh nasal spray 1 sprays, Nares, Both, Daily, # 16 Gm, 1 Refills, Maintenance, 06/16/20 18:04:00 EDT, [place], [facility]/pharmacy #[id number], 159, cm, 06/08/20 13:31:00 EDT, Height Start Date: 06/16/20 Status: Ordered multivitamin Multiple Vitamins oral capsule 1 capsule, By Mouth, Daily, # 90 capsule, 11 Refills, Maintenance, 08/12/20 11:32:00 EDT, Capsule, [facility]/pharmacy #[id number], 1 capsule By Mouth Daily, 159, cm, 07/27/20 13:20:00 EDT, Height Start Date: 08/12/20 Status: Ordered Mylanta Maximum Strength oral suspension 20 mL, By Mouth, 4 times a day, between meals and at bedtime, # 240 mL, 1 Refills, Maintenance, 10/19/19 14:27:00 EST, Suspension, [facility], 20 mL By Mouth 4 times a day,Instr:between meals and at bedtime, 159, cm, 10/19/19 13:35:00... Start Date: 10/19/19 Status: Ordered omeprazole 40 mg oral enteric coated capsule 1 capsule = 40 mg, By Mouth, 2 times a day, # 60 capsule, 4 Refills, Maintenance, 10/05/20 14:48:00EST, EC Capsule, [facility]/pharmacy #[id number], Partial [...] 18:51:00 EST, Route to Pharmacy Electronically, [facility]/pharmacy #[id number], Partial fill upon patient request if the prescription is for a schedule II opio... Start Date: 10/20/20 Stop Date: 10/27/20 Status: Ordered Tums 500 mg oral tablet, chewable 500 mg, 1, tablet, Chew, 2 times a day, # 60 tablet, Refills 3, Tot. Refills 3, Maintenance, 01/14/20 11:08:00 EDT, Route to Pharmacy Electronically, [facility], 159, cm, 12/21/19 13:52:00 EST, Height Start Date: 01/14/20 Status: Ordered Tylenol 8 HR Arthritis Pain 650 mg oral tablet, extended release 1 tablet = 650 mg, By Mouth, Every 8 hours, # 100 tablet, 1 Refills, Acute 09/11/21 13:31:00 EST, 09/12/20 13:30:00 EST, ER Tablet, [facility], 159, cm, 07/27/20 13:20:00 EDT, Height Start Date: 09/12/20 Stop Date: 09/11/21 Status: Ordered Problem List Condition Effective Dates Status Health Status Inform ant Hematuria(Confirmed) 1 Active Chronic back pain(Confirmed) Active Dyslipidemia(Confirmed) Active h/o allergic rhinitis(Confirmed) Active Illiteracy(Confirmed) Active Dyspepsia(Confirmed) Active Disc displacement(Confirmed) Active [facility]/CC-Serena Purcell-[phone]/[facility], Active Care Coordination(Confirmed) Active Tubular adenoma of colon - d ue 2021(Confirmed) 2 11/2015 Active lul Vick 2-2014, had cystoscopy 2014 Social History Social History Type Response Smoking Status Never smoker entered on: 08/23/16 Sex
--- OUTSIDE RECORDS SUMMARY | 2023-06-10 06:29 | XMS_ITS | Continuity of Care Document ---
Author Name Unknown Organization [facility] Address [address] [place] [address]- Care Team Providers Care Choir Singer Name Role Phone Raiza KRISHNA, [place] Primary Care Physician Encounter [facility] Date(s): 02/01/23 - 03/03/23 [facility] [address] [place] [id number] Allergies, Adverse Reactions, Alerts Substance [...] inactivated 1 10/12/10 Gi jocy SARS-CoV-2 mRNA ([id number]) vax 06/13/22 Recorded SARS-CoV-2 (COVID-19) mRNA BNT-[id number] [...] [id number] Partial fill upon patient request ifthe prescription is for a schedule II opioid drug.,... Start Date: 11/01/22 Status: Ordered Artificial Tears preserved solution 1 drops, Eyes, Both, 2 times a day, PRN for dry eyes, # 30 mL, 2 Refills, Maintenance, 02/04/23 9:35:00 EDT, Solution, [facility]/pharmacy #[id number], Partial fill upon patient request if the prescription is fora schedule II opioid drug., 1 drops Eyes, Both 2 ti... Start Date: 02/04/23 Status: Ordered Ativan 0.5 mg oral tablet 1 tablet = 0.5 mg, By Mouth, Once, greenlandic label, take 30 mins to 1 hr before flight, # 2 tablet, 0Refills, Soft Stop, 10/08/22 17:54:00 EST, Tablet, [id number], Partial fill upon patient request if the prescription is for a schedule II opioi... Start Date: 10/08/22 Status: Ordered atorvastatin 40 mg oral tablet 1 tablet = 40 mg, By Mouth, Daily, # 30 tablet, 5 Refills, Maintenance, 12/19/22 14:49:00 EST, Tablet, [facility], Partial fill upon patient request if the prescription is for a schedule II opioid drug., 162.56, cm, 12/19/22 14:01:00 E... Start Date: 12/19/22 Status: Ordered azelastine 137 mcg/inh (0.1%) nasal spray 0 Refills, Maintenance, 12/07/21 11:16:00 EST, via Dr Gloevr, space studies faculty member Start Date: 12/07/21 Status: Ordered baclofen 10 mg oral tablet See Instructions, TOME JOAN TABLETA POR VIA ORAL KARLA VECES AL MONICA, # 63 tablet, Refills 0, Instructions Replace Required Details, Route to Pharmacy Electronically, [id number], 157.5, cm, 04/10/22 10:29:00 EDT, Height, 75, [...] 2 times a day, Print instructions in greenlandic use only for toenails, # 60 mL, 1 Refills, Maintenance, 01/18/23 10:15:00 EDT, Suspension, [facility]/pharmacy #[id number], Partial fill uponpatient request if the prescription is for a sched... Start Date: 01/18/23 Status: Ordered [facility] LUBRICANT EYE DROPS Maintenance, 12/07/21 11:16:00 EST, via Dr Glover, space studies faculty member, Supply Start Date: 12/07/21 Status: Ordered diclofenac 1% topical gel 1 application, Topically, 4 times a day, # 100 Gm, 5 Refills, Maintenance, 12/07/22 11:37:00 EST, Gel, [facility]/pharmacy #[id number], Partial fill upon patient request if the prescription is for a schedule II opioid drug., 162.56, cm, 12/07/22 10:29:00 EST, [place]... Start Date: 12/07/22 Status: Ordered famotidine 40 mg oral tablet 1 tablet = 40 mg, By Mouth, 2 times a day, take 2x/day for 2 weeks then decrease to daily, # 60 tablet, 2 Refills, Maintenance, 06/24/22 12:04:00 EDT, Tablet, [facility]/pharmacy #[id number], Partial fill upon patient request if the prescription is for a schedule... Start Date: 06/24/22 Stop Date: 09/22/22 Status: Ordered Flomax 0.4 mg oral capsule 0.4 mg, 1, capsule, By Mouth, Daily, # 30 capsule, Refills 5, Tot. Refills 5, Maintenance, 11/07/2310:08:00 EST, Route to Pharmacy Electronically, [facility]/pharmacy #[id number], Partial fill upon patient request if [...] 1 application, Topically, Daily, Print instructions in greenlandic Use only on feet, # 60 Gm, [...] Maintenance, 12/07/21 11:16:00 EST, via Dr Glover, space studies faculty member, Supply Start Date: 12/07/21 Status: Ordered minoxidil [...] 5 Refills, Maintenance, 12/07/22 11:36:00 EST, Suspension, [facility]/pharmacy #[id number], Partial fill upon patient request if [...] EDT, He... Start Date: 06/11/22 Status: Ordered [place]-3 1000 mg oral capsule via psychiatry, 0 Refills, Maintenance, 12/07/21 11:13:00 EST, Partial fill upon patient request ifthe prescription is for a schedule II opioid drug. Start Date: 12/07/21 Status: Ordered omeprazole 40 mg oral enteric coated capsule See Instructions, JUAN RAMON WEBB VECES AL MONICA, # 180 capsule, 1 Refills, Maintenance, 02/25/23 7:44:00 EDT, [id number], 158, cm, 02/20/23 9:30:00 EDT, Height, 76.5, kg, 06/12/22 13:23:00 EDT, Dry Weight Start Date: 02/25/23 Status: Ordered Lynette-Colace 50 mg-8.6 mg oral tablet 2 tablet, By Mouth, Daily at bedtime, PRN Constipation, For constipation, # 60 tablet, 0 Refills, Maintenance, 01/02/22 20:52:00 EDT, Tablet, [facility]/pharmacy #[id number], Partial fill upon patient request if [...] 11 Refills, Maintenance, 01/14/23 15:27:00 EDT, Tablet, [facility]/pharmacy #[id number], label in Chinese, 162.56,cm, 01/14/23 15:01:00 [...] mL, 4 Refills, Maintenance, 02/28/22 16:09:00 EDT, [place], [id number], Partial fill upon patient request if the prescription is for a schedule II opioid drug., 1 sprays N... Start Date: 02/28/22 Status: Ordered Tears Naturale Forte preserved ophthalmic solution 1 drops, Eyes, Both, 2 times a day, PRN for dry eyes, # 30 mL, 0 Refills, Maintenance, 11/30/22 11:37:00 EST, Solution, [id number], Partial fill upon patient request if the [...] class I Confirmed Active Onychomycosis Confirmed Active *[facility]/CC-Patricia [phone]/[facility], Active Care Coordination Confirmed Active Nasal septum perforation, h/o cocaine Confirmed Active Prediabetes Confirmed Active Muscle spasm Confirmed Active Tubular adenoma of colon - due 2021 2 Confirmed 11/2015 Active 1, gross 2-2014, had cystoscopy 2014 Social History Social History Type Response Smoking Status Never smoker entered on: 08/23/16 Sex Patient Care team information Care Team Personnel Name: Trenton Eastman MD Position: [facility] Resident Member Role: PCP Address: Address: [address] [place] [address]- Care Team Related Persons Name: AJAY BE Address: [place] [address] Name: KAMALJIT FUCHS Address: home [address] [place] [address] [place] [id number]
--- OUTSIDE RECORDS SUMMARY | 2023-06-10 06:29 | XMS_ITS | Continuity of Care Document ---
Author Name Unknown Organization [facility] Address [address] [place] [address]- Care Team Providers Care Special Education Teachers Name Role Phone Raiza KRISHNA, [place] Primary Care Physician Encounter [facility] Date(s): 10/10/22 - 11/09/22 [facility] [address] [place] [id number] Allergies, Adverse Reactions, Alerts Substance Reaction Severity Status penicillins Superficial gravel r enid Itching Active Immunizations Given and Recorded Vaccine Date Status Refusal Reason SARS-CoV-2 mRNA ([id number]) vax 06/13/22 Recorded SARS-CoV-2 (COVID-19) mRNA BNT-162b2 [...] 10/12/10 Given 1Admin Note: VIS given 05/30/10, English form 2Admin Note: VIS given, 08/2008, English form Medications amLODIPine 5 mg oral tablet 5 mg, 1, tablet, By Mouth, Daily, # 90 tablet, Refills 3, Tot. Refills 3, Maintenance, 11/01/22 9:44:00 EST, Route to Pharmacy Electronically, [facility]/pharmacy #[id number], Partial fill upon patient request ifthe prescription is for a schedule II opioid drug.,... Start Date: 11/01/22 Status: Ordered Artificial Tears preserved solution 1 drops, Eyes, Both, 2 times a day, PRN for dry eyes, # 30 mL, 0 Refills, Maintenance, 09/06/22 10:24:00 EST, Solution, [facility]/pharmacy #[id number], Partial fill upon patient request if the prescription is for a schedule II opioid drug., 1 drops Eyes, Both 2 t... Start Date: 09/06/22 Status: Ordered Ativan 0.5 mg oral tablet 1 tablet = 0.5 mg, By Mouth, Once, indonesian label, take 30 mins to 1 hr before flight, # 2 tablet, 0Refills, Soft Stop, 10/08/22 17:54:00 EST, Tablet, [facility]/pharmacy #[id number], Partial fill upon patient request if the prescription is for a schedule II opioi... Start Date: 10/08/22 Status: Ordered azelastine 137 mcg/inh (0.1%) nasal spray 0 Refills, Maintenance, 12/07/21 11:16:00 EST, via Dr Glover, banking attorney Start Date: 12/07/21 Status: Ordered baclofen 10 mg oral tablet See Instructions, TOME JOAN TABLETA POR VIA ORAL KARLA VECES AL MONICA, # 63 tablet, Refills 0, Instructions Replace Required Details, Route to Pharmacy Electronically, [facility] STORE [id number], 157.5, cm, 04/10/22 10:29:00 EDT, Height, 75, [...] 2 times a day, Print instructions in indonesian, # 60 mL, 1 Refills, Maintenance, 07/11/22 11:00:00 EDT, Suspension, [facility]/pharmacy #[id number], Partial fill upon patient request if the prescription is for a schedule II opioid drug., 1... Start Date: 07/11/22 Status: Ordered [facility] LUBR[facility] DROPS Maintenance, 12/07/21 11:16:00 EST, via Dr Glover, banking attorney, Supply Start Date: 12/07/21 Status: Ordered famotidine 40 mg oral tablet 1 tablet = 40 mg, By Mouth, 2 times a day, take 2x/day for 2 weeks then decrease to daily, # 60 tablet, 2 Refills, Maintenance, 06/24/22 12:04:00 EDT, Tablet, [facility]/pharmacy #[id number], Partial fill upon patient request if the prescription is for a schedule... Start Date: 06/24/22 Stop Date: 09/22/22 Status: Ordered Flomax 0.4 mg oral capsule 0.4 mg, 1, capsule, By Mouth, Daily, # 30 capsule, Refills 5, Tot. Refills 5, Maintenance, 11/07/2310:08:00 EST, Route to Pharmacy Electronically, [facility]/pharmacy #[id number], Partial fill upon patient request if the prescription is for a schedule II opioid d... Start Date: 11/07/22 Status: Ordered loratadine 10 mg oral tablet 10 mg, 1, tablet, By Mouth, Daily, # 30 tablet, Refills 5, Tot. Refills 5, Maintenance, 12/18/21 10:54:00 EST, Route to Pharmacy Electronically, [facility]/pharmacy #[id number], Partial fill upon patient request if the prescription is for a schedule II opioid drug... Start Date: 12/18/21 Status: Ordered LUBRICNT EYE JESSICA 0.4-0.3% Maintenance, 12/07/21 11:16:00 EST, via Dr Glover, banking attorney, Supply Start Date: 12/07/21 Status: Ordered minoxidil [...] 1 Refills, Maintenance, 09/12/22 9:06:00 EST, Capsule, [facility]/pharmacy #[id number], 1 capsule By Mouth [...] EDT, He... Start Date: 06/11/22 Status: Ordered [place]-3 1000 mg oral capsule via psychiatry, 0 Refills, Maintenance, 12/07/21 11:13:00 EST, Partial fill upon patient request ifthe prescription is for a schedule II opioid drug. Start Date: 12/07/21 Status: Ordered omeprazole 40 mg oral enteric coated capsule See Instructions, JUAN RAMON KO DOS VECES AL MONICA, # 180 capsule, 1 Refills, Maintenance, 09/05/22 10:55:00 EST, [id number], 162.56, cm, 07/12/22 10:42:00 EDT, Height, 76.5, kg, 06/12/22 13:23:00 EDT, Dry Weight Start Date: 09/05/22 Status: Ordered Lynette-Colace 50 mg-8.6 mg oral tablet 2 tablet, By Mouth, Daily at bedtime, PRN Constipation, For constipation, # 60 tablet, 0 Refills, Maintenance, 01/02/22 20:52:00 EDT, Tablet, [facility]/pharmacy #[id number], Partial fill upon patient [...] mL, 4 Refills, Maintenance, 02/28/22 16:09:00 EDT, [id number], Partial fill upon patient request if the prescription is for a schedule II opioid drug., 1 sprays N... Start Date: 02/28/22 Status: Ordered Tears Naturale Forte preserved ophthalmic solution 1 drops, Eyes, Both, 2 times a day, PRN for dry eyes, # 30 mL, 0 Refills, Maintenance, 08/28/21 14:52:00 EST, Solution, [facility]/pharmacy #[id number], Partial fill upon patient [...] Confirmed Active Onychomycosis Confirmed Active *[facility]ARE/CC-Mary gayle [phone]/H [facility], Active Care Coordination Confirmed Active Nasal septum perforation, h/o cocaine Confirmed Active Muscle spasm Confirmed Active Tubular adenoma of colon - due 2021 2 Confirmed 11/2015 Active 1, gross 2-2014, had cystoscopy 2014 Social History Social History Type Response Smoking Status Never smoker entered on: 08/23/16 Sex Patient Care team information Care Team Personnel Name: Raiza KRISHNA, [place] Position: [facility] Resident Member Role: PCP Address: Address: [address] [place] [address] [place] [address]- Care Team Related Persons Name: AJAY BE Address: [place] [address] Name: KAMALJIT FUCHS Address: home [address] [place] [address] [place] [id number]
--- OUTSIDE RECORDS SUMMARY | 2023-06-10 06:29 | XMS_ITS | Continuity of Care Document ---
Author Name Unknown Organization [facility] ter Address [address] [place] [address]- Care Team Providers Care Contact Officer Name Role Phone Raiza KRISHNA, [place] Primary Care Physician Encounter [facility] Date(s): 05/02/23 - 05/02/[address] [address]- Discharge Disposition: A-D/C Home Attending Physician: Jair Hyde DO Admitting Physician: Jair Hyde DO Referring Physician: Not on Staff, Referring MD [...] inactivated 1 10/12/10 Gi jocy SARS-CoV-2 mRNA (hoiqdsm-jgsq-scnkz) vax 06/13/22 Recorded SARS-CoV-2 (COVID-19) mRNA BNT-162b2 vac 09/13/21 Recorded SARS-CoV-2 (COVID-19) mRNA BNT-162b2 vac 02/27/21 Given SARS-CoV-2 (COVID-19) mRNA BNT-162b2 vac 02/06/21 Given tetanus-diphtheria toxoids (Td) 11/23/20 Given tetanus/diphtheria/pertussis, acel(Tdap) 2 10/12/10 Given 1Admin Note: VIS given 8/10/10, Bolivian form 2Admin Note: VIS given, 08/2008, Bolivian form Medications amLODIPine 5 mg oral tablet 5 mg, 1, tablet, By Mouth, Daily, # 90 tablet, Refills 3, Tot. Refills 3, Maintenance, 11/01/22 9:44:00 EST, [id number] fill upon patient request [...] tablet = 0.5 mg, By Mouth, Once, togolese label, take 30 mins to 1 hr [...] 5 Refills, Maintenance, 12/19/22 14:49:00 EST, Tablet, [facility], Partial fill upon patient request if the prescription is for a schedule II opioid drug., 162.56, cm, 12/19/22 14:01:00 E... Start Date: 12/19/22 Status: Ordered azelastine 137 mcg/inh (0.1%) nasal spray 0 Refills, Maintenance, 12/07/21 11:16:00 EST, via Dr Glover, materials planning manager Start Date: 12/07/21 Status: Ordered buPROPion 150 mg/24 hours (XL) oral tablet, extended release via psychiatry, 0 Refills, Maintenance, 12/07/21 11:13:00 EST, Partial fill upon patient request ifthe prescription is for a schedule II opioid drug. Start Date: 12/07/21 Status: Ordered ciclopirox topical 0.77% suspension 1 application, Topically, 2 times a day, Print instructions in togolese use only for toenails, # 60 mL, 1 Refills, Maintenance, 01/18/23 10:15:00 EDT, Suspension, [facility]/pharmacy #[id number], Partial fill uponpatient request if the prescription is for a sched... Start Date: 01/18/23 Status: Ordered [facility] Maintenance, 12/07/21 11:16:00 EST, via Dr Glover, materials planning manager, Supply Start Date: 12/07/21 Status: Ordered [...] 0 Refills, Maintenance, 04/19/23 15:33:00 EDT, Lotion, [facility]/pharmacy #[id number], Partial fill [...] 1 application, Topically, Daily, Print instructions in togolese Use only on feet, # 60 Gm, 1 Refills, Maintenance, 01/18/23 10:16:00 EDT, Cream, [id number], Partial fill upon patient request if the prescription is for a schedule II opioid drug... Start Date: 01/18/23 Status: Ordered LUBRICNT EYE JESSICA 0.4-0.3% Maintenance, 12/07/21 11:16:00 EST, via Dr Glover, materials planning manager, Supply Start Date: 12/07/21 Status: Ordered multivitamin [...] EDT, He... Start Date: 06/11/22 Status: Ordered [place]-3 1000 mg oral capsule via psychiatry, 0 Refills, Maintenance, 12/07/21 11:13:00 EST, Partial fill upon patient request ifthe prescription is for a schedule II opioid drug. Start Date: 12/07/21 Status: Ordered omeprazole 40 mg oral enteric coated capsule See Instructions, JUAN RAMON KO DOS VECES AL MONICA, # 180 capsule, 1 Refills, Maintenance, 02/25/23 7:44:00 EDT, [id number], 158, cm, 02/20/23 9:30:00 EDT, Height, 76.5, [...] 15:27:00 EDT, Tablet, [id number], label in Bolivian, 162.56,cm, 01/14/23 15:01:00 EDT, Height, 76.5, kg, [...] class I Confirmed Active Onychomycosis Confirmed Active *[facility]/CC-Patricia [phone][facility], Active Care Coordination Confirmed Active Nasal septum perforation, h/o cocaine Confirmed Active Prediabetes Confirmed Active Muscle spasm Confirmed Active Tubular adenoma of colon - due 2021 2 Confirmed 11/2015 Active 1, gross 2-2014, had cystoscopy 2014 Vital Signs Most recent to oldest [Reference Range]: 1 2 Height 159 cm (05/02/23 2:49 PM) Weight 73.4 kg (05/02/23 2:49 PM) Oxygen Saturation [94-100 %] 100 % (05/02/23 2:44 PM) 100 % (05/02/23 11:30 AM) Pulse Rate [55-90 bpm] 58 bpm (05/02/23 2:44 PM) 72 bpm (05/02/23 11:30 AM) Blood Pressure [90-138/55-84 mm Hg] 136/ 91mm Hg (05/02/23 2:44 PM) 134/89mm Hg (05/02/23 11:30 AM) Respiratory Rate [16-30 br/min] 18 br/mi n (05/02/23 2:44 PM) 16 br/min (05/02/23 11:30 AM) Temperature [96.8-100.4 DegF] 98 DegF (05/02/23 2:44 PM) 98.6 DegF (05/02/23 11:30 AM) Mode of Delivery (Oxygen) Room air (05/02/23 2:44 PM) Room air (05/02/23 11:30 AM) Blood pressure sites Arm, left (05/02/23 2:44 PM) Arm, left (05/02/23 11:30 AM) Temperature Route Oral (05/02/23 2:44 PM) Oral (05/02/23 11:30 AM) Dry Weight 73.4 kg (05/02/23 2:49 PM) Social History Social History Type Response Smoking Status Never smoker entered on: 08/23/16 Sex Note * Jair Hyde DO: SIGN, VERIFY, PERFORM Event Display: Patient Education Handout Authored Date: [id number] * Jair Hyde DO: PERFORM Event Display: Patient Education Leaflets Authored Date: [id number] Neck Pain ?? [id number] Dolor de paty El dolor de paty sin que haya lesi??n tiene varias causas posibles, zoila estas: ??? Un hawk??o movimiento repentino del paty puede provocarle un esguince o distensi??n travis delos ligamentos o de los m??sculos. Dormir con el paty apoyado en sabrina posici??n inc??moda tambi??npuede causarle eso. ??? Ante el estr??s emocional, algunas personas tensan los m??sculos del paty, de los hombros y de la parte superior de la espalda. El espasmo cr??pablo de esos m??sculos puede causar dolor en el paty y, en ocasiones, dolor de donny. ??? El desgaste gradual de las articulaciones de la columna puede causar sabrina artritis degenerativa. Esta puede ocasionarle dolor de paty enforma cr??kalpana u ocasional. ??? Los discos vertebrales pueden agrandarse y ejercer presi??n contra alg??n nervio cercano de la columna. [employer] puede suceder producto de la edad o a causa de hawk??as lesiones reiteradas en el paty. Los discos vertebrales son la amortiguaci??n entre medio de cada hueso de la columna. Eso provoca hormigueo, dolor o entumecimiento que se extiende desde el paty hasta el hombro, el brazo o la mano de un lado. El dolor saskia del paty suele aliviarse en 1??a 2??semanas. El dolor de paty relacionado con alguna afecci??n de los discos, artritis en las articulaciones vertebrales o estenosis calvillo puede volverse cr??pablo y durar meses o a??os. La estenosis del conducto vertebral causa la reducci??n del conducto vertebral. No suelen indicarse radiograf??as para evaluar de forma inicial el dolor de paty. Robert es posibleque le tomen las radiograf??as si sufri?? sabrina lesi??n f??balaji por impacto, zoila sabrina ca??da o un accidente de autom??anthony. Si el dolor persiste y no responde al tratamiento m??dico, es posible que le soliciten radiograf??as y otras pruebas m??s adelante. Con menos frecuencia, el dolor de paty puede ser un signo de sabrina afecci??n m??dica subyacente m??s grave. Cuidados en el hogar ??? Descanse y relaje los m??sculos. Use sabrina almohada c??moda que brinde soporte a la donny. Tambi??n deber??a ayudarlo a mantener la columna en sabrina posici??n neutral. La cabezano deber??a quedar inclinada hacia adelante ni hacia atr??s. Puede usar sabrina toalla enrollada para lograr un mejor apoyo. ??? Un collar cervical blando puede ayudar con el dolor, en especial el que siente al airline transport pilot la donny. El proveedor de atenci??n m??dica puede decirle si esto es adecuado para suafecci??n. ??? Algunas personas sienten alivio con el calor. Puede aplicarse calor con un ba??o o ducha caliente o con sabrina toalla h??christiano calentada en el microondas y un masaje.??Otras personas prefieren utilizar compresas fr??as. Para hacer sabrina compresa de hielo puede colocar hielo en sabrina bolsa pl??stica y cerrarla. Luego, envuelva la bolsa en sabrina toalla keely.??Pruebe ambos m??todos y use el quebrinde mejores resultados brandon 15??a 20??minutos varias veces al d??a. ??? Ya sea con calor o fr??o, tenga cuidado de no lastimar la piel. Nunca aplique hielo de forma directa sobre la piel. Siempre envuelva el hielo en sabrina toalla u otro tipo de magui. [employer] es fundamental, sobre todo en personas que tienen poca sensibilidad en la piel.? Intente reducir carrion nivel de estr??s. El estr??s emocional puede causar tensi??n muscular en el paty y retrasar el proceso de curaci??n o interferir en ??l. ??? Puede celena analg??sicos de venta wesly para controlar el dolor, a menos que le hayan receta do otro medicamento. Si tiene sabrina enfermedad cr??kalpana del h??gado o de los ri??ones o childers tenido alguna vez sabrina ??lcera estomacal o sabrina hemorragia gastrointestinal, consulte con el proveedor antes de usar estos medicamentos. ?? Atenci??n de seguimiento Programe sabrina david de seguimiento con el proveedor de atenci??n m??dica si los s??ntomas no empiezana mejorar despu??s de 1??semana. Quiz??s necesite recibir m??s sesiones de fisioterapia o hacerse otras pruebas. Si le hicieron radiograf??as, tomograf??as computarizadas o resonancias magn??roger, le dir??n los resultados nuevos que puedan afectar el tratamiento. ?? Cu??ndo llamar al?? 911 Llame al?? 911 si tiene algo de lo siguiente: ??? Debilidad repentina o entumecimiento en yoanna o ambos brazos ??? Hinchaz??n del paty, dificultad o dolor al tragar ??? Dificultad para respirar ??? Dolor de pecho ?? Cu??ndo debe buscar atenci??n m??dica Llame al proveedor de atenci??n m??dica de inmediato ante cualquiera de las siguientes situaciones:??? El dolor empeora o se extiende a yoanna o ambos brazos ??? Debilidad de los brazos o las piernas ??? P??rdida de control del intestino o de la vejiga ??? Dolor de donny que aumenta ??? Fiebre de 100 .4?F??(38?C) o superior, o seg??n le haya indicado el proveedor ?? Last Reviewed Date: 2022 ?? 5918-7239 [employer]. Todos los derechos reservados. Esta informaci??n no pretende sustituir la atenci??n m??dica profesional. S??lo carrion m??dico puede diagnosticar y tratar un problema de jose ramon. ?? Patient Care team information Care Team Personnel Name: [place]on Eastman MD Position: [facility] Resident Member Role: PCP Address: Address: [address] [place] [id number] Name: *[facility], ED Attending Position: [facility] ED Attendings Patient Name: Jair Hyde DO Position: [facility] ED Medicine MD Member Role: Admitting Physician Address: Address: [address] [place] [address] [place] [address]- Name: Leila Morelos RN Position: [facility] ED RN W/OE and Tasks Member Role: Patient Care Provider Name: Yanira Crowley Position: [facility] ED TA [facility] Care Team Related Persons Name: AJAY BE Address: [place] [address] Name: KAMALJIT FUCHS Address: [address] [place] [id number]
--- OUTSIDE RECORDS SUMMARY | 2023-06-10 06:29 | XMS_ITS | Continuity of Care Document ---
Author Name Unknown Organization [facility] Address [address] [place] [address]- Care Team Providers Care Paper Goods Machine Set Up Operator Name Role Phone Melvi KRISHNA, Samuel Palacios Primary Care Physician [phone] Encounter [facility] Date(s): 11/05/19 - 12/05/19 [facility] [address] [place] [address]- [facility] Attending Physician: Lloyd Santiago MD Admitting Physician: [...] Note: VIS given, 08/2008, Icelandic form Medications Artificial Tears preserved solution 1 drops, Eyes, Both, 2 times a day, PRN for dry eyes, # 10 mL, 0 Refills, Maintenance, 10/19/19 14:27:00 EST, [facility] 1 drops Eyes, Both 2 times a day,PRN:for dry eyes, 159, cm, 10/19/19 13:35:00 EST, Height Start Date: 10/19/19 Status: Ordered loratadine 10 mg oral tablet 10 mg, 1, tablet, By Mouth, Daily, # 30 tablet, Refills 5, Tot. Refills 5, Maintenance, 03/05/19 16:15:54 EDT, Route to Pharmacy Electronically, [id number], [facility]/pharmacy #[id number] Start Date: 03/05/19 Stop Date: 05/28/19 Status: Ordered meloxicam 15 mg oral tablet 1 tablet = 15 mg, By Mouth, Daily, # 14 tablet, 0 Refills, Maintenance, 11/18/19 16:29:00 EST, Tablet, [facility]/pharmacy #[id number], 159, cm, 11/18/19 15:55:00 EST, Height Start Date: 11/18/19 Stop Date: 12/02/19 Status: Ordered Mylanta Maximum Strength oral suspension 20 mL, By Mouth, 4 times a day, between meals and at bedtime, # 240 mL, 1 Refills, Maintenance, 10/19/19 14:27:00 EST, Suspension, [facility], 20 mL By Mouth 4 times a day,Instr:between meals and at bedtime, 159, cm, 10/19/19 13:35:00... Start Date: 10/19/19 Status: Ordered omeprazole 40 mg oral enteric coated capsule 1 capsule = 40 mg, By Mouth, Daily, # 30 capsule, 3 Refills, Maintenance, 10/29/19 17:25:00 EST, ECCapsule, [facility]/pharmacy #[id number], 159, cm, 10/19/19 13:35:00 EST, Height [...] 11/18/19 16:31:00 EST, Route to Pharmacy Electronically, [facility]/pharmacy #[id number], 159, cm, 11/18/19 15:55:00 EST, Height Start Date: 11/18/19 Status: Ordered Problem List Condition Effective Dates Status Health Status Inform ant Hematuria(Confirmed) 1 Active Chronic back pain(Confirmed) Active Depression(Confirmed) Active Dyslipidemia(Confirmed) Active h/o allergic rhinitis(Confirmed) Active Illiteracy(Confirmed) Active Disc displacement(Confirmed) Active *N [facility], [facility], (Confirmed) 08/06/18 Active N/[facility]/CARMEN-Serena Purcell-[phone]/[facility], Active Care Coordination(Confirmed) Active Tubular adenoma of colon - d ue 2021(Confirmed) 2 11/2015 Active lul Vick 2-2014, had cystoscopy 2014 Social History Social History Type Response Smoking Status Never smoker entered on: 08/23/16 Sex
--- OUTSIDE RECORDS SUMMARY | 2023-06-10 06:29 | XMS_ITS | Continuity of Care Document ---
Author Name Unknown Organization [facility] Address [address] [place] [address]- Care Team Providers Care Vacuum Furnace Operator Name Role Phone Raiza KRISHNA, [place] Primary Care Physician [phone] Encounter [facility] Date(s): 12/20/22 - 01/19/23 [facility] [address] [place] [id number] Allergies, Adverse Reactions, [...] inactivated 1 10/12/10 Gi jocy SARS-CoV-2 mRNA ([id number]) vax 06/13/22 Recorded SARS-CoV-2 (COVID-19) mRNA BNT-162b2 vac 09/13/21 Recorded SARS-CoV-2 (COVID-19) mRNA BNT-162b2 vac 02/27/21 Given SARS-CoV-2 (COVID-19) mRNA BNT-162b2 vac 02/06/21 Given tetanus-diphtheria toxoids (Td) 11/23/20 Given tetanus/diphtheria/pertussis, acel(Tdap) 2 10/12/10 Given 1Admin Note: VIS given 05/30/10, Gabonese form 2Admin Note: VIS given, 08/2008, Gabonese form Medications amLODIPine 5 mg oral tablet 5 mg, 1, tablet, By Mouth, Daily, # 90 tablet, Refills 3, Tot. Refills 3, Maintenance, 11/01/22 9:44:00 EST, [id number] Partial fill upon patient request ifthe prescription is for a schedule II opioid drug.,... Start Date: 11/01/22 Status: Ordered Artificial Tears preserved solution 1 drops, Eyes, Both, 2 times a day, PRN for dry eyes, # 30 mL, 0 Refills, Maintenance, 11/29/22 17:50:00 EST, [id number] Partial fill upon patient request if the prescription is for a schedule II opioid drug., 1 drops Eyes, Both 2 t... Start Date: 11/29/22 Status: Ordered Ativan 0.5 mg oral tablet 1 tablet = 0.5 mg, By Mouth, Once, azerbaijani label, take 30 mins to 1 hr before flight, # 2 tablet, 0Refills, Soft Stop, 10/08/22 17:54:00 EST, [id number] Partial fill upon patient request if the prescription is for a schedule II opioi... Start Date: 10/08/22 Status: Ordered atorvastatin 40 mg oral tablet 1 tablet = 40 mg, By Mouth, Daily, # 30 tablet, 5 Refills, Maintenance, 12/19/22 14:49:00 EST, Tablet, [facility], Partial fill upon patient request if the prescription is for a schedule II opioid drug., 162.56, cm, 12/19/22 14:01:00 E... Start Date: 12/19/22 Status: Ordered azelastine 137 mcg/inh (0.1%) nasal spray 0 Refills, Maintenance, 12/07/21 11:16:00 EST, via Dr Glover, dry curer Start Date: 12/07/21 Status: Ordered baclofen 10 mg oral tablet See Instructions, TOME JOAN TABLETA POR VIA ORAL KARLA VECES AL MONICA, # 63 tablet, Refills 0, Instructions Replace Required Details, Route to Pharmacy Electronically, [id number], 157.5, cm, 04/10/22 10:29:00 EDT, Height, 75, [...] times a day, Print instructions in azerbaijani use only for toenails, # 60 mL, 1 Refills, Maintenance, 01/18/23 10:15:00 EDT, Suspension, [id number], Partial fill uponpatient request if the prescription is for a sched... Start Date: 01/18/23 Status: Ordered [facility] LUBRICANT EYE DROPS Maintenance, 12/07/21 11:16:00 EST, via Dr Glover, dry curer, Supply Start Date: 12/07/21 Status: Ordered diclofenac [...] 1 application, Topically, Daily, Print instructions in azerbaijani Use only on feet, # 60 Gm, 1 Refills, Maintenance, 01/18/23 10:16:00 EDT, Cream, [facility]/pharmacy #[id number], Partial fill upon patient [...] Maintenance, 12/07/21 11:16:00 EST, via Dr Glover, dry curer, Supply Start Date: 12/07/21 Status: Ordered minoxidil [...] EDT, He... Start Date: 06/11/22 Status: Ordered [place]-3 1000 mg oral capsule via psychiatry, 0 Refills, Maintenance, 12/07/21 11:13:00 EST, Partial fill upon patient request ifthe prescription is for a schedule II opioid drug. Start Date: 12/07/21 Status: Ordered omeprazole 40 mg oral enteric coated capsule See Instructions, JUAN RAMON ARTA DOS VECES AL MONICA, # 180 capsule, 1 Refills, Maintenance, 09/05/22 10:55:00 EST, [id number], 162.56, cm, 07/12/22 10:42:00 EDT, Height, 76.5, [...] 15:27:00 EDT, Tablet, [id number], label in Gabonese, 162.56,cm, 01/14/23 15:01:00 EDT, Height, 76.5, kg, [...] mL, 4 Refills, Maintenance, 02/28/22 16:09:00 EDT, [place], [id number], Partial fill upon patient request [...] Disc displacement Confirmed Active Onychomycosis Confirmed Active [facility]/CCValerie [phone]/He [facility], Active Care Coordination Confirmed Active Nasal [...] HOSPITAL Resident Member Role: PCP Address: Address: [address] [place] [id number]- Care Team Related Persons Name: AJAY BE Address: [place] [address] Name: KAMALJIT FUCHS Address: home [address] [place] [address] [place] [id number]
--- OUTSIDE RECORDS SUMMARY | 2023-06-10 06:29 | XMS_ITS | Continuity of Care Document ---
Author Name Unknown Organization [facility] Address [address] [place] [address]- Care Team Providers Care Area Development Manager Name Role Phone Melvi KRISHNA, Samuel Palacios Primary Care Physician Encounter [facility] Date(s): 09/30/19 - 11/22/19 [facility] [address] [place] [address]- [facility] Attending Physician: Lloyd Santiago MD Admitting Physician: Lloyd Santiago MD Allergies, Adverse Reactions, Alerts Substance Reaction Severity Status penicillins Active Immunizations Given and Recorded Vaccine Date Status Refusal Reason influenza virus vaccine, inactivated 07/15/19 Give n influenza virus vaccine, inactivated 1 10/12/10 Gi jocy tetanus/diphtheria/pertussis, acel(Tdap) 2 10/12/10 Given 1Admin Note: VIS given 05/30/10, Tajik form 2Admin Note: VIS given, 08/2008, Tajik form Medications Artificial Tears preserved solution 1 drops, Eyes, Both, 2 times a day, PRN for dry eyes, # 10 mL, 0 Refills, Maintenance, 10/19/19 14:27:00 EST, Solution, [facility]., 1 drops Eyes, Both 2 times a day,PRN:for dry eyes, 159, cm, 10/19/19 13:35:00 EST, Height Start Date: 10/19/19 Status: Ordered benzocaine-menthol 15 mg-2.1 mg mucous membrane lozenge 1 lozenge, By Mouth, Every 2 hours, PRN for sore throat, # 18 each, 1 Refills, Acute 12/05/19 18:00:00 EST, 11/04/19 14:29:00 EST, Lozenge, [facility] 1 lozenge By Mouth Every 2 hours,PRN:for sore throat, 159, cm, 11/04/19 13:57:00 ES... Start Date: 11/04/19 Stop Date: 12/05/19 Status: Ordered loratadine 10 mg oral tablet 10 mg, 1, tablet, By Mouth, Daily, # 30 tablet, Refills 5, Tot. Refills 5, Maintenance, 03/05/19 16:15:54 EDT, Route to Pharmacy Electronically, [id number], [facility]/pharmacy #[id number] Start Date: 03/05/19 Stop Date: 05/28/19 Status: Ordered meloxicam 15 mg oral tablet 1 tablet = 15 mg, By Mouth, Daily, # 14 tablet, 0 Refills, Maintenance, 11/18/19 16:29:00 EST, Tablet, [facility]/pharmacy #[id number], 159, cm, 11/18/19 15:55:00 EST, Height Start Date: 11/18/19 Stop Date: 12/02/19 Status: Ordered Mylanta Maximum Strength oral suspension 20 mL, By Mouth, 4 times a day, between meals and at bedtime, # 240 mL, 1 Refills, Maintenance, 10/19/19 14:27:00 EST, Suspension, [facility], 20 mL By Mouth 4 times a day,Instr:between meals and at bedtime, 159, cm, 10/19/19 13:35:00... Start Date: 10/19/19 Status: Ordered omeprazole 40 mg oral enteric coated capsule 1 capsule = 40 mg, By Mouth, Daily, # 30 capsule, 3 Refills, Maintenance, 10/29/19 17:25:00 EST, ECCapsule, [facility]/pharmacy #[id number], 159, cm, 10/19/19 13:35:00 EST, [...] 11/18/19 16:31:00 EST, Route to Pharmacy Electronically, [facility]/pharmacy #[id number], 159, cm, 11/18/19 15:55:00 EST, Height Start Date: 11/18/19 Status: Ordered Problem List Condition Effective Dates Status Health Status Inform ant Hematuria(Confirmed) 1 Active Chronic back pain(Confirmed) Active Depression(Confirmed) Active Dyslipidemia(Confirmed) Active h/o allergic rhinitis(Confirmed) Active Illiteracy(Confirmed) Active Disc displacement(Confirmed) Active *[facility], [facility], (Confirmed) 08/06/18 Active [facility]/Tashia Purcell-[phone]/[facility], Active Care Coordination(Confirmed) Active Tubular adenoma of colon - d ue 2021(Confirmed) 2 11/2015 Active lul Vick 2-2014, had cystoscopy 2014 Social History Social History Type Response Smoking Status Never smoker entered on: 08/23/16 Sex
--- OUTSIDE RECORDS SUMMARY | 2023-06-10 06:29 | XMS_ITS | Continuity of Care Document ---
Author Name Unknown Organization [facility] Address [address] [place] [address]- Care Team Providers Care Surgical Device Sales Representative Name Role Phone Hugh Spence MD Primary Care Physician Encounter [facility] Date(s): 12/30/20 - 01/29/21 [facility] [address] [place], [place] [address] Attending Physician: Blu Smith MD Admitting Physician: Blu Smith MD Referring Physician: Hugh Spence MD Allergies, Adverse Reactions, Alerts Substance Reaction [...] to Pharmacy Electronically, [facility]/pharmacy #[id number], label all scripts in ITALIAN,... Start Date: 11/22/20 Stop Date: 11/17/21 Status: Ordered azelastine 0.05% ophthalmic solution 1 drops, Eyes, Both, 2 times a day, PRN for allergy symptoms, # 6 mL, 6 Refills, Maintenance, 01/13/21 14:54:00 EDT, [id number], Label in Sammarinese, 1 drops Eyes, Both 2 times a day,PRN:for allergy symptoms, 159, cm, 01/04/21 9:23:00 EDT, Height... Start Date: 01/13/21 Status: Ordered diclofenac 1% topical gel 1 application, Topically, 4 times a day, not to exceed 32 grams/day, # 100 Gm, 2 Refills, Maintenance, 12/12/20 11:17:00 EST, Gel, [facility]/pharmacy #[id number], Label in Sammarinese please, 159, cm, 12/12/20 10:33:00 EST, Height, 74.1, kg, 10/20/20 16:18:00 EST, Dr... Start Date: 12/12/20 Status: Ordered Flonase 50 mcg/inh nasal spray 1 sprays, Nares, Both, Daily, # 16 Gm, 1 Refills, Maintenance, 06/16/20 18:04:00 EDT, [place], [facility]/pharmacy #[id number], 159, cm, 06/08/20 [...] 9:00:00 EST, 12/05/20 15:26:00 EST, ER Tablet, [facility]/pharmacy #[id number], 159, cm, 07/27/20 13:20:00 EDT, Height, 74.1, kg, 10/20/20 16:18:00 EST, Dry Weight Start Date: 12/05/20 Stop Date: 12/05/21 Status: Ordered Problem List Condition Effective Dates Status Health Status Inform ant Hematuria(Confirmed) 1 Active Chronic back pain(Confirmed) Active Dyslipidemia(Confirmed) Active h/o allergic rhinitis(Confirmed) Active Illiteracy(Confirmed) Active Dyspepsia(Confirmed) Active Disc displacement(Confirmed) Active [facility]/CC-Serena Purcell-[phone]/[facility], Active Care Coordination(Confirmed) Active Tubular adenoma of colon - d ue 2021(Confirmed) 2 11/2015 Active 1, gross 2-2014, had cystoscopy 2014 Social History Social History Type Response Smoking Status Never smoker entered on: 08/23/16 Sex
--- OUTSIDE RECORDS SUMMARY | 2023-06-10 06:29 | XMS_ITS | Continuity of Care Document ---
Author Name Unknown Organization [facility] Address [address] [place] [address]- Care Team Providers Care Shear Scrapman Name Role Phone Bebe KRISHNA, Hugh Primary Care Physician [phone] Encounter [facility] Date(s): 11/10/20 - 12/10/20 [facility] [address] [place], [place] [address] Allergies, Adverse Reactions, Alerts Substance Reaction [...] 10/12/10 Given 1Admin Note: VIS given 05/30/10, Moroccan form 2Admin Note: VIS given, 08/2008, Moroccan form Medications amLODIPine 2.5 mg oral tablet 2.5 mg, 1, tablet, By Mouth, Daily, ; STOP amlodipine 5 mg. use this dose instead., # 30 tablet, Refills 11, Tot. Refills 11, Maintenance, 11/22/20 16:52:00 EST, Route to Pharmacy Electronically, [facility]/pharmacy #[id number], label all scripts in IVORIAN,... Start Date: 11/22/20 Stop Date: 11/17/21 Status: Ordered Artificial Tears preserved solution 1 drops, Eyes, Both, 2 times a day, PRN for dry eyes, # 10 mL, 0 Refills, Maintenance, 10/19/19 14:27:00 EST, [facility] 1 drops Eyes, Both 2 times a day,PRN:for dry eyes, 159, cm, 10/19/19 13:35:00 EST, Height Start Date: 10/19/19 Status: Ordered Flonase 50 mcg/inh nasal spray 1 sprays, Nares, Both, Daily, # 16 Gm, 1 Refills, Maintenance, 06/16/20 18:04:00 EDT, [place], [id number], 159, cm, 06/08/20 13:31:00 EDT, [...] 1 Refills, Maintenance, 10/19/19 14:27:00 EST, Suspension, [facility], 20 mL By Mouth 4 times [...] EDT, Route to Pharmacy Electronically, [facility], 159, cm, 12/21/19 13:52:00 EST, Height Start Date: 01/14/20 Status: Ordered Tylenol 8 HR Arthritis Pain 650 mg oral tablet, extended release 1 tablet = 650 mg, By Mouth, Every 8 hours, # 100 tablet, 1 Refills, Acute 12/05/21 9:00:00 EST, 12/05/20 15:26:00 EST, ER Tablet, [facility]/pharmacy #[id number], 159, cm, 07/27/20 13:20:00 EDT, Height, 74.1, kg, 10/20/20 16:18:00 EST, Dry Weight Start Date: 12/05/20 Stop Date: 12/05/21 Status: Ordered Problem List Condition Effective Dates Status Health Status Inform ant Hematuria(Confirmed) 1 Active Chronic back pain(Confirmed) Active Dyslipidemia(Confirmed) Active h/o allergic rhinitis(Confirmed) Active Illiteracy(Confirmed) Active Dyspepsia(Confirmed) Active Disc displacement(Confirmed) Active [facility]/CC-Serena Purcell-[phone]/[facility], Active Care Coordination(Confirmed) Active Tubular adenoma of colon - d ue 2021(Confirmed) 2 11/2015 Active 1lul 2-2014, had cystoscopy 2014 Social History Social History Type Response Smoking Status Never smoker entered on: 08/23/16 Sex
--- NOTE | 2023-06-10 07:06 | PC.NURSE ---
pt medicated according to mar. iv removed at discharge. pt calm and cooperative. pt walked to decon to obtain belongings. pt provided with discharge plan. pt verbalized understanding of discharge plan
== END 2023-06-10 07:09 | disposition home or self-care (01) ==
LOC: HO.ED 06-10 06:19
PROVIDERS: Emergency Provider Internal Medicine
DX: T40.5X1A Poisoning by cocaine, accidental (unintentional), initial encounter (principal); F10.129 Alcohol abuse with intoxication, unspecified; R51.9 Headache, unspecified; Y90.8 Blood alcohol level of 240 mg/100 ml or more; Z71.51 Drug abuse counseling and surveillance of drug abuser; Z79.899 Other long term (current) drug therapy
CPT/HCPCS: 36415; 70450; 80053; 80307; 85025; 85610; 93005; 99284; 99285